=== PATIENT | female | born 2000 | race Caucasian/White ===

== ENCOUNTER 2023-04-02 22:23 | Emergency (ER) | payer OTHER, SELFPAY ==
[2023-04-02 22:44] VITALS: BP 119/77; PULSE 80; RESP 16; TEMP 36.8; O2SAT 97; BMI 25.8
--- NOTE | 2023-04-02 23:07 | ED_ITS ---
HPI - General Adult General Chief complaint: Skin/Abscess/Foreign Body Stated complaint: RASH Time Seen by Provider: 04/02/23 22:52 Source: patient Mode of arrival: walk-in Limitations: no limitations History of Present Illness HPI narrative: rash between both thighs started over a month ago. She saw an ED physician at [place] [facility] and was prescribed topical steroid cream - but only told to apply it once daily and no follow up instructions were given. 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 The rash is raised and red but not painful. She said it is itchy. No systemic symptoms. Related Data Home Medications Medication Instructions Recorded Confirmed norgestimate 0.25 mg-ethinyl tab 04/02/23 estradiol 35 mcg tablet Previous Rx's Medication Instructions Recorded triamcinolone acetonide 0.1 % 1 applic topical TID #30 grams 04/02/23 topical ointment Allergies Allergy/AdvReac Type Severity Reaction Status Date / Time ondansetron [From Zofran] Allergy Mild Verified 04/02/23 22:50 Exam Narrative Exam Narrative: Nurses notes and vital signs reviewed and patient is not hypoxic. afebrile General: Well-appearing and in no apparent distress. Skin: Warm, dry, no pallor noted. erythematous rash to the medial thighs bilaterally. No vesicles or open wounds. No other skin rash/ lesions Head: Normocephalic, atraumatic. Eye: Pupils are equal, round and EOMI. No scleral icterus. Ears, Nose, Mouth, and Throat: Oral mucosa is moist Cardiovascular: Evette peripheral perfusion. Respiratory: No accessory muscle use or respiratory distress. Lungs are clear to auscultation, no wheezing, rales or rhonchi Musculoskeletal: normal ROM Neurological: A&O x4. No cranial nerve dysfunction observed. No truncal ataxia. Moves all extremities. Sensation intact. Psychiatric: Cooperative and interactive. Normal mood and affect. Constitutional Vital Signs - 24 hr 04/02/23 22:44 Temperature 98.2 F Pulse Rate [Monitor] 80 Respiratory Rate 16 Blood Pressure [Left Arm] 119/77 Pulse Oximetry 97 Oxygen Delivery Method Room Air Course Vital Signs Vital signs: Vital Signs Temperature 98.2 F 04/02/23 22:44 Pulse Rate 80 06/24/23 22:44 Respiratory Rate 16 04/02/23 22:44 Blood Pressure 119/77 04/02/23 22:44 Pulse Oximetry 97 04/02/23 22:44 Oxygen Delivery Method Room Air 04/02/23 22:44 Temperature 98.2 F 04/02/23 22:44 Pulse Rate 80 04/02/23 22:44 Respiratory Rate 16 04/02/23 22:44 Blood Pressure 119/77 04/02/23 22:44 Pulse Oximetry 97 04/02/23 22:44 Oxygen Delivery Method Room Air 04/02/23 22:44 Medical Decision Making MDM Narrative Medical decision making narrative: patient and I discussed propr frequency of dosing for the topical steroid. She was given referral information for [facility] dermatology Discharge Plan Discharge Chief Complaint: Skin/Abscess/Foreign Body Clinical Impression: Contact dermatitis Patient Disposition: Home, Self-Care Time of Disposition Decision: 23:11 Prescriptions / Home Meds: New triamcinolone acetonide 0.1 % ointment 1 applic topical TID Qty: 30 0RF No Action norgestimate-ethinyl estradiol 0.25-35 mg-mcg tablet Instructions: Contact Dermatitis (ED) Additional Instructions: refer to [facility] dermatology for follow up Stand Alone Forms: Portal Instructions Referrals: Physician,Non-Staff, [Primary Care Provider] - 1 week ALEXUS ISSA [Physician] - 1 week
--- NOTE | 2023-04-02 23:17 | PC.NURSE ---
Raised hive appearing rash inner bilateral thighs.
[2023-04-02 23:18] VITALS: RESP 16
== END 2023-04-02 23:43 | disposition home or self-care (01) ==
PROVIDERS: Emergency Provider Emergency Medicine
DX: L25.9 Unspecified contact dermatitis, unspecified cause (principal)
CPT/HCPCS: 99282

== ENCOUNTER 2023-11-21 09:55 | Outpatient (OUT) | payer OTHER, SELFPAY ==
[2023-11-21 10:44] LABS: HCG Quantitative <1 mIU/mL
== END 2023-11-21 09:56 | disposition home or self-care (01) ==
LOC: LAB 09:55
PROVIDERS: Visit Provider Obstetrics & Gynecology
DX: N92.6 Irregular menstruation, unspecified (principal)
CPT/HCPCS: 36415; 84702

== ENCOUNTER 2024-01-20 10:16 | Outpatient (OUT) | payer OTHER, SELFPAY ==
[2024-01-20 13:42] LABS: HCG Quantitative 46 mIU/mL
== END 2024-01-20 10:17 | disposition home or self-care (01) ==
LOC: LAB 01-24 10:16
PROVIDERS: Visit Provider Obstetrics & Gynecology
DX: Z32.01 Encounter for pregnancy test, result positive (principal)
CPT/HCPCS: 36415; 84702

== ENCOUNTER 2024-01-23 09:35 | Outpatient (OUT) | payer OTHER, SELFPAY ==
--- OUTSIDE RECORDS SUMMARY | 2024-01-23 10:01 | XMS_ITS | CCD ---
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 contraceptive management Class 2 obesity due to excess calories without serious comorbidity with body mass index (BMI) of 37.0 to 37.9 in adult documented in this encounter [facility] Instructions Note Date & Type Note Facility Instructions Not on filedocumented in this en counter [facility] Reason for referral (narrative) Consultation (Routine) - Pending Review Note Date & Type Note Facility Reason for referral (narrati ve) Specialty Diagnoses / Procedures Referred By Vinny t Referred To Contact Diagnoses PTSD (post-traumatic stress disorder) Summer Davalos APRN-FNP [address] [place] [address] Referral ID Status Reason Start Date Expiration Date Visits Requested Visits Authorized [id number] Pending Review Patient Preference 12/20/2023 12/19/2024 1 1 [facility] Summary Purpose Family History No Family History Records FoundNo Family History Records FoundNo Family History Records Found Advance Directives No Advanced Directives Records FoundNo Advanced Directives Records FoundNo Advanced Directives Records Found Additional Source Comments INFORMATION SOURCE (unrecogn ized section and content) DATE CREATED AUTHOR 01/27/2023 [facility] DATE CREATED AUTHOR AUTHOR'S ORGANIZ ATION 12/22/2023 [facility] DATE CREATED AUTHOR AUTHOR'S ORGANIZ ATION 01/20/2024 [facility] (unrecognized sec tion and content) Outsole Beveler Relationship Specialty Start Date End Date Reid Jasmine MD PCP - General Family Medicine 08/01/23 Outsole Beveler Relationship Specialty Start Date End Date Summer Davalos, GALO-MALTER OPERATOR [address] [place] [address] PCP - General Internal Medicine 09/14/23 Reason for Visit (unrecogniz ed section and content) Reason Comments Annual Exam FOR RECORDS PERTAINING TO PATIENTS WHO ARE OR HAVE BEEN ENROLLED IN A CHEMICAL DEPENDENCY/SUBSTANCEABUSE PROGRAM, SOME INFORMATION MAY BE OMITTED. This clinical summary was aggregated from multiple sources. Caution should be exercised in using it in the provision of clinical care. This summary normalizes information from multiple sources, and as a consequence, information in this document may materially change the coding, format and clinical context of patient data. In addition, data may be omitted in some cases. CLINICAL DECISIONS SHOULD BE BASED ON THE PRIMARY CLINICAL RECORDS. [employer] provides no warranty or guarantee of the accuracy or completeness of information in this document.
[2024-01-23 10:44] LABS: HCG Quantitative 128 mIU/mL
== END 2024-01-23 09:36 | disposition home or self-care (01) ==
PROVIDERS: Visit Provider Obstetrics & Gynecology
DX: Z32.01 Encounter for pregnancy test, result positive (principal)
CPT/HCPCS: 36415; 84702

== ENCOUNTER 2024-02-07 10:34 | Outpatient (OUT) | payer OTHER, SELFPAY ==
[2024-02-07 11:17] LABS: Hemoglobin 12.5 g/dL (12.0-16.0); Mean Corpuscular HGB Conc 32.9 g/dL (29.9-35.2); Mean Corpuscular Hemoglobin 27.9 pg (26.7-34.0); Mean Corpuscular Volume 84.8 fL (81.0-99.0); Mean Platelet Volume 10.1 fL (9.5-13.5); Platelet Count 226 10^3/uL (150-450); Red Blood Count 4.48 10^6/uL (4.20-5.40); Red Cell Distribution Width 12.4 % (11.0-15.0); White Blood Count 5.8 10^3/uL (4.0-11.0)
[2024-02-07 11:23] LABS: Estimated Average Glucose 97 mg/dL
[2024-02-07 11:32] LABS: Free T4 1.03 ng/dL (0.76-1.46)
[2024-02-07 11:35] LABS: Alanine Aminotransferase 102 U/L (14-59); Albumin Globulin Ratio 0.9; Albumin Level 3.8 g/dL (3.4-5.0); Alkaline Phosphatase 68 U/L (46-116); Anion Gap 13.5; Aspartate Amino Transferase 59 U/L (15-37); BUN Creatinine Ratio 10.3; Bilirubin Total 0.5 mg/dL (0.2-1.0); Calcium 9.3 mg/dL (8.5-10.1); Carbon Dioxide 24.4 mmol/L (21.0-32.0); Chloride 105 mmol/L (98-107); Estimated GFR (African America >60 (>=60); Estimated GFR (Non-African Ame >60 (>=60); Glucose 83 mg/dL (74-106); Potassium 3.9 mmol/L (3.5-5.1); Sodium 139 mmol/L (136-145); Total Protein 7.8 g/dL (6.4-8.2)
[2024-02-07 14:29] LABS: Eosinophils Absolute Manual 0.17 10^3/uL (0.00-0.70); Lymphocytes Absolute Manual 1.68 10^3/uL (1.20-3.80); Monocytes Absolute Manual 0.52 10^3/uL (0.30-0.80); Segmented Neut Absolute Manual 3.42 10^3/uL (1.4-6.5)
== END 2024-02-07 10:35 | disposition home or self-care (01) ==
LOC: LAB 10:35
PROVIDERS: PCP Nurse Practitioner Family; Visit Provider Obstetrics & Gynecology
DX: R63.1 Polydipsia (principal); R68.2 Dry mouth, unspecified; R20.9 Unspecified disturbances of skin sensation
CPT/HCPCS: 36415; 80053; 83036; 84439; 84443; 85007; 85027

== ENCOUNTER 2024-02-12 10:00 | Emergency (ER) | payer OTHER, SELFPAY ==
[2024-02-12 10:04] VITALS: BP 131/83; PULSE 78; TEMP 36.5; O2SAT 97; BMI 38.7
--- OUTSIDE RECORDS SUMMARY | 2024-02-12 10:08 | XMS_ITS | CCD ---
Author Organization [facility] Care Team Providers Care Studio Assistant Name Role Phone NAMITA, DR BEAN Primary Care Unavailable KARASIK ., DR COTA Admitting Unavailabl e KARASIK ., DR COTA Attending Unavailabl e KARASIK ., DR COTA Consulting Unavailabl e SHARP, MICHAEL Consulting Unavailable LATIA AMADO Consulting Unavailable KARASIK ., DR COTA Admitting Unavailabl e REQUEST, DR HOWARD LISTED Primary Care Unavaila ble KARASIK ., DR COTA Attending Unavailabl e KARASIK ., DR COTA Consulting Unavailabl e PAY ., DR TARANGO Attending Unavailable PAY ., DR TARANGO Consulting Unavailable REQUEST, DR HOWARD LISTED Primary Care Unavaila ble PAY ., DR TARANGO Admitting Unavailable Reid Jasmine MD Primary Care Provider Anoop COMMERCIAL LOAN PROCESSOR-GLASSWARE FINISHER, Summer Machado Primary Care Provider SUMMER DAVALOS Attending Unavailable SUMMER DAVALOS Referring Unavailable SUMMER DAVALOS Primary Care Unavailable SUMMER DAVALOS Primary Care Unavailable MARQUES BUTLER Attending Unavailable MADELEINE PRETTY Attending Unavailable Allergies Allergy Classification Reported Allergen(s) Allergy Type Date of Onset Reaction(s) Facility (1 source) Ondansetron Drug Allergy [facility] Repository (1 source) Ondansetron Drug Allergy 08-01-2023 [facility] Work Phone: (3 sources) Ondansetron; Translations: [ONDANSETRON HCL] Drug Allergy 12-11-[address] [facility] Medications Current Medications Medication Drug Class(es) [...] ( test) Ql (U) Negative Normal NEG [facility] Comment on above: Performed By: #### 2 106-3 #### [facility] ([id number]) [address] [place] [address], [place] [address] MILTON Golver 2023 BILIRUBIN SUDHIR Negative Normal NEG [facility] Comment on above: Performed By: #### N UM #### [facility] ([id number]) [address] [place] [address] [place] [address] BLOOD/HGB SUDHIR Trace Abnormal NEG [facility] Comment on above: Performed By: #### N UM #### [facility] ([id number]) [address] [place] [address], [place] [address] GLUCOSE SUDHIR Negative Normal NEG [facility] Comment on above: Performed By: #### N UM #### [facility] ([id number]) [address] [place] [address], [place] [address] KETONES SUDHIR Negative Normal NEG [facility] Comment on above: Performed By: #### N UM #### [facility] ([id number]) [address] [place] [address] [place] [address] LEUKOCYTE ESTERASE SUDHIR Negative Normal NEG [facility] Comment on above: Performed By: #### N UM #### [facility] ([id number]) [address] [place] [address] [place] [address] NITRITE SUDHIR Negative Normal NEG [facility] Comment on above: Performed By: #### N UM #### [facility] ([id number]) [address] [place] [address] [place] [address] PH SDUHIR 6.0 Normal 5.0-8.5 [facility] Comment on above: Performed By: #### N UM #### [facility] ([id number]) [address] [place] [address] [place] [address] PROTEIN SUDHIR Negative Normal NEG [facility] Comment on above: Performed By: #### N UM #### [facility] ([id number]) [address] [place] [address], [place] [address] SPECIFIC GRAVITY SUDHIR >=1.030 Normal 1.003-1.035 [facility] Comment on above: Performed By: #### N UM #### [facility] ([id number]) [address] [place] [address] UROBILINOGEN SUDHIR 0.2 eu/dL Normal <1.[address] [facility] Comment on above: Performed By: #### N UM #### [facility] ([id number]) [address] [place] [address] [facility] PREG QUANT HCGon 024 HCG QUANTITATIVE <1 mIU/mL [facility] Comment on above: 5-50 0.2-1 WEEK 50-500 1-2 WEEKS 100-5,000 2-3 WEEKS 500-10,000 3-4 WEEKS 1,000-50,000 4-5 WEEKS 10,000-100,000 5-6 WEEKS 15,000-200,000 6-8 WEEKS 10,000-100,000 2-3 MONTHS [facility] CBC AUTO DIFFon 01-19-2023 BASO # 0.1 103/ul Normal 0.0-0.1 [facility] Comment on above: Performed By: #### C BC #### [facility] [address] [place] [address] Dr. Kristie Marrero Basophils/100 WBC (Bld) 0.5 % Normal 0.2-2.0 [facility] Comment on above: Performed By: #### C BC #### [facility] [address] [place] [address] Dr. Kristie Marrero EO # 0.2 103/ul Normal 0.0-0.7 [facility] Comment on above: Performed By: #### C BC #### [facility] [address] [place] [address] Dr. Kristie Marrero Eosinophils/100 WBC (Bld) 2.0 % Normal 0.9-7.0 [facility] Comment on above: Performed By: #### C BC #### [facility] [address] [place] [address] Dr. Kristie Marrero Erythrocyte distribution width (RBC) [Ratio] 12.0 % Normal 11.0-15.0 [facility] Comment on above: Performed By: #### C BC #### [facility] [address] [place] [address] Dr. Kristie Marrero Hematocrit (Bld) [Volume fraction] 38.0 % Normal 36.0-48.0 [facility] Comment on above: Performed By: #### C BC #### [facility] [address] [place] [address] Dr. Kristie Marrero Hemoglobin (Bld) [Mass/Vol] 13.3 g/dL Normal 12.0-16.0 [facility] Comment on above: Performed By: #### C BC #### [facility] [address] [place] [address] Dr. Kristie Marrero IG # 0.04 10e3/ul Critically high 0.00-0.03 [facility] Comment on above: Performed By: #### C BC #### [facility] [address] [place] [address] Dr. Kristie Marrero IG % 0.4 % Normal 0.0-0.5 [facility] Comment on above: Performed By: #### C BC #### [facility] [address] [place] [address] Dr. Kristie Marrero LYMPH # 1.3 103/ul Normal 1.2-3.8 [facility] Comment on above: Performed By: #### C BC #### [facility] [address] [place] [address] Dr. Kristie Marrero Lymphocytes/100 WBC (Bld) 12.3 % Critically low 20.5-60.0 [facility] Comment on above: Performed By: #### C BC #### [facility] [address] [place] [address] Dr. Krisite Marrero MANUAL DIFF REQ NO Normal [facility] Comment on above: Performed By: #### C BC #### [facility] [address] [place] [address] Dr. Kristie Marrero MCH (RBC) [Entitic mass] 29.2 pg Normal 26.7-34.0 [facility] Comment on above: Performed By: #### C BC #### [facility] [address] [address] [address] Kristie Marrero MCHC (RBC) [Mass/Vol] 35.0 g/dL Normal 29.9-35.2 [facility] Comment on above: Performed By: #### C BC #### [facility] [address] [address] [address] Kristie Marrero MCV (RBC) [Entitic vol] 83.3 fL Normal 81.0-99.0 [facility] Comment on above: Performed By: #### C BC #### [facility] [address] [address] [address] Kristie Marrero MONO # 0.7 103/ul Normal 0.3-0.8 [facility] Comment on above: Performed By: #### C BC #### [facility] [address] [address] [address] Kristie Marrero Monocytes/100 WBC (Bld) 7.0 % Normal 1.7-12.0 [facility] Comment on above: Performed By: #### C BC #### [facility] [address] [address] [address] Kristie Marrero NEUT # 8.2 103/ul Critically high 1.4-6.5 [facility] Comment on above: Performed By: #### C BC #### [facility] [address] [address] [address] Kristie Marrero Neutrophils/100 WBC (Bld) 77.8 % Critically high 43.0-75.0 [facility] Comment on above: Performed By: #### C BC #### [facility] [address] [address] [address] Kristie Marrero Platelet mean volume (Bld) [Entitic vol] 9.5 fL Normal 9.5-13.5 [facility] Comment on above: Performed By: #### C BC #### [facility] [address] [address] [address] Kristie Marrero PLT 265 103/ul Normal 150-[address] [facility] Comment on above: Performed By: #### C BC #### [facility] [address] [place] [address] Dr. Kristie Marrero RBC 4.56 106/ul Normal 4.20-5.40 [facility] Comment on above: Performed By: #### C BC #### [facility] [address] [place] [address] Dr. Kristie Marrero WBC 10.5 103/ul Normal 4.0-11.0 [facility] Comment on above: Performed By: #### C BC #### [facility] [address] [place] [address] Dr. Kristie Marrero PREG HCG QUALon 01-19-2023 , QUAL Negative Normal NEGATIVE [facility] Comment on above: Performed By: #### P REG #### [facility] [address] [place] [address] Dr. Kristie Marrero CHLAMYDIA/GONOCOCCUS RADHA ( AB/URINE/PAPon 11-19-2022 Chlamydia trachomatis, RADHA Negative Normal Negative [facility] Comment on above: Performed By: #### C T/NGNA #### [facility] [address] [place] [address] Dr. Krisite Marrero Neisseria gonorrhoeae, RADHA Negative Normal Negative [facility] Comment on above: Performed By: #### C T/NGNA #### [facility] [address] [place] [address] Dr. Kristie Marrero VAGINITIS/VAGINOSIS DNA PROB Syed 11-18-2022 Jenny species Negative Normal Negative [facility] Comment on above: Performed By: #### V AGINT #### [facility] [address] [place] [address] Dr. Kristie Marrero Gardnerella vaginalis Positive Abnormal Negative [facility] Comment on above: Performed By: #### V AGINT #### [facility] [address] [place] [address] Dr. Kristie Marrero Trichomonas vaginalis Negative Normal Negative [facility] Comment on above: Performed By: #### V AGINT #### [facility] [id number] Kristie Marrero [facility]10 SARS-CoV-2 (COVID-19) RNA RADHA+probe Ql (Unsp spec) Detected Critically abnormal NOT DETECTED [facility] Comment on above: Result Comment: This test is not yet approved or cleared by the [place] FDA. When there are no FDA-approved or cleared tests available, and other criteria are met, FDA can make tests available under an emergency access mechanism called an Emergency Use Authorization (EUA). The EUA for this test is supported by the Windows Infrastructure Engineer of Health and Human Service's (HHS's) declaration [...] longer be used). Performed By: #### [facility] #### [facility] [address] [place], [place] [id number] Dr. Kristie Marrero Vital Signs Date Time Vital Sign Value Performing Clinician Facility 12-20-2023 15:22-0400 Body height 170.2 cm Summre LOPEZ Work Phone: [facility] 12-20-2023 15:22-0400 Body mass index (BMI) [Ratio] 38.28 kg/m2 Summer LOPEZ Work Phone: [facility] 12-20-2023 15:22-0400 Body temperature 98.29 [degF] Summer LOPEZ Work Phone: [facility] 12-20-2023 15:22-0400 Body weight 110.86 kg Summer LOPEZ Work Phone: [facility] 12-20-2023 15:22-0400 Diastolic blood pressure 80 mm[Hg] Summer LOPEZ Work Phone: [facility] 12-20-2023 15:22-0400 Heart rate 82 /min Summer Davalos COMMERCIAL LOAN PROCESSOR-GLASSWARE FINISHER [facility] 12-20-2023 15:22-0400 Respiratory rate 18 /min Summer Davalos COMMERCIAL LOAN PROCESSOR-GLASSWARE FINISHER Work Phone: [facility] 12-20-2023 15:22-0400 SaO2% (BldA) [Mass fraction] 97 % Summer Davalos COMMERCIAL LOAN PROCESSOR-GLASSWARE FINISHER Work Phone: [facility] 12-20-2023 15:22-0400 Systolic blood pressure 100 mm[Hg] Summer Davalos APRN-GLASSWARE FINISHER Work Phone: [facility] Encounters Encounter Date Encounter Type Care Provider Facility Start: 02-07-2024 End: 02-07-2024 ambulatory MADELEINE MARIA DE JESUS Not Available Start: 01-19-2024 End: 01-19-2024 Emergency department patient visit [facility] Start: 12-20-2023 End: 12-20-2023 ambulatory [facility] Start: 12-20-2023 End: 12-20-2023 Office outpatient visit 15 minutes Summer Davalos APRN-GLASSWARE FINISHER Work Phone: [facility] Internal Medicine - Family Medicine Comment [...] Work Phone: [facility] Unsolicited Start: 01-19-2023 End: 01-19-[address] DOCTOR BREAUX Facility:[facility] Start: 11-16-2022 End: 11-16-[address] BEATA THOMSON . Facility:[facility] Start: 05-07-2022 End: 05-07-[address] SUKHDEEP HERNÁNDEZ . Facility: Procedures Date Procedure Procedure Detail Performing Clinician Start: 12-20-2023 Adult depression scr eening assessment Summer Davalos COMMERCIAL LOAN PROCESSOR-GLASSWARE FINISHER Work Phone: Start: 11-21-2023 [facility] PREG QUANT HCG Core y Ayleen DO Work Phone: Start: 11-16-2022 Microscopic observat ion [Identifier] in Cervix by Cyto stain Summer Davalos COMMERCIAL LOAN PROCESSOR-[facility] Work Phone: Plan of Treatment Date Care Activity Detail Author Start: 11-13-2029 DTaP,Tdap and Td Vaccines (7 - Td or Tdap) DTaP,Tdap and Td Vaccines (7 - Td or Tdap) [facility] Start: 11-16-2025 Screening for malign ant neoplasm of cervix Pap Smear [facility] Start: 12-19-2024 Adult BMI Screening Adult BMI Screen ing [facility] Start: 12-19-2024 Depression Screening Depression Scre ening [facility] Start: 12-19-2024 Tobacco Screening Tobacco Screening [facility] Start: 09-14-2024 Adult BMI Follow Up Plan Adult BMI Follow Up Plan [facility] Start: 06-10-2023 Influenza vaccination Influenza Vacc ine (#1) [facility] Immunizations Immunization Date Immunization Notes Care Provider Fa cility 11-13-2019 tetanus toxoid, redu clifford diphtheria toxoid, and acellular pertussis vaccine, adsorbed Summer Davalos COMMERCIAL LOAN PROCESSOR-[facility] Work Phone: [facility] 01-22-2014 diphtheria, tetanus toxoids and acellular pertussis vaccine, unspecified formulation Summer Davalos COMMERCIAL LOAN PROCESSOR-GLASSWARE FINISHER Work Phone: [facility] 06-22-2004 diphtheria, tetanus toxoids and acellular pertussis vaccine Summer Davalos COMMERCIAL LOAN PROCESSOR-GLASSWARE FINISHER Work Phone: [facility] 06-22-2004 haemophilus influenz ae type b vaccine, PRP-T conjugate Summer Davalos COMMERCIAL LOAN PROCESSOR-[facility] Work Phone: [facility] 06-22-2004 pneumococcal conjuga te vaccine, 7 valent Summer Davalos COMMERCIAL LOAN PROCESSOR-GLASSWARE FINISHER Work Phone: [facility] 12-20-2003 DTaP-hepatitis B and poliovirus vaccine Summer Davalos COMMERCIAL LOAN PROCESSOR-GLASSWARE FINISHER Work Phone: [facility] 12-20-2003 haemophilus influenz ae type b vaccine, PRP-T conjugate Summer Davalos COMMERCIAL LOAN PROCESSOR-GLASSWARE FINISHER Work Phone: [facility] 12-20-2003 measles, mumps and rubella virus vaccine Summer Davalos COMMERCIAL LOAN PROCESSOR-GLASSWARE FINISHER Work Phone: [facility] 12-20-2003 varicella virus vaccine Summer Davalos COMMERCIAL LOAN PROCESSOR-GLASSWARE FINISHER Work Phone: [facility] 11-11-2003 DTaP-hepatitis B and poliovirus vaccine Summer Davalos COMMERCIAL LOAN PROCESSOR-GLASSWARE FINISHER Work Phone: [facility] 11-11-2003 haemophilus influenz ae type b vaccine, PRP-T conjugate Summer Davalos COMMERCIAL LOAN PROCESSOR-GLASSWARE FINISHER Work Phone: [facility] 11-11-2003 pneumococcal conjuga te vaccine, 7 valent Summer Davalos COMMERCIAL LOAN PROCESSOR-GLASSWARE FINISHER Work Phone: [facility] 05-31-2003 DTaP-hepatitis B and poliovirus vaccine Summer Davalos COMMERCIAL LOAN PROCESSOR-GLASSWARE FINISHER Work Phone: [facility] 05-31-2003 haemophilus influenz ae type b vaccine, PRP-T conjugate Summer Davalos COMMERCIAL LOAN PROCESSOR-GLASSWARE FINISHER Work Phone: [facility] 05-31-2003 pneumococcal conjuga te vaccine, 7 valent Summer Davalos COMMERCIAL LOAN PROCESSOR-GLASSWARE FINISHER Work Phone: [facility] 2002 hepatitis B vaccine, pediatric or pediatric/adolescent dosage Summer Davalos COMMERCIAL LOAN PROCESSOR-GLASSWARE FINISHER Work Phone: [facility] Payers Date Payer Category Payer Medicaid [id number] 2002 Unknown [id number] [id number] 2002 Unknown [id number] [id number] 2002 Unknown [id number] 2.16.84 [id number] 1982 Unknown [id number] 2.16.84 [id number] 1982 Unknown [id number] 2.16.84 [id number] 1982 Unknown [id number] [id number] [id number] 1959 Unknown [id number] 1959 Unknown [id number] Social History Date Type Detail Facility Start: 05-19-[address] [facility] Tobacco smoking consumption unknown [facility] Start: 05-19-2023 Tobacco use and exposure User of smokeless tobacco [facility] Start: 11-18-2023 End: 12-20-2023 Alcohol intake Lifetime non-drinker (finding) [facility] Start: 11-11-2020 End: 05-19-2023 History of Social function [facility] Start: 11-11-2020 End: 05-19-[address] [facility] Start: 2000 Sex Assigned At Not on file [facility] Start: 01-15-[address] [facility] Never smoked tobacco [facility] Start: 01-15-2023 Tobacco use and exposure Smokeless tobacco non-user [facility] Frequency of Alcohol Consumption Never [facility] History of Present illness Narrative 12-20-2023 Summer Davalos APRN-HARPER - 12/20/2023 3:20 PM EDT Note Date [...] in adult She has her contraception and rag production worker care thru Dr Abbasi, she should continue [...] Thrasher 12/20/23 1629 documented in this encounter [facility] Evaluation note Note Date & Type Note Facility Evaluation note Diagnosis PTSD (post-traumatic stress disorder)- Primary Posttraumatic stress disorder General counseling and advice for contraceptive management Class 2 obesity due to excess calories without serious comorbidity with body mass index (BMI) of 37.0 to 37.9 in adult [facility] Instructions Note Date & Type Note Facility Instructions Not on filedocumented in this en counter [facility] Reason for referral (narrative) Consultation (Routine) - Pending Review Note Date & Type Note Facility Reason for referral (narrati ve) Specialty Diagnoses / Procedures Referred By Vinny t Referred To Contact Diagnoses PTSD (post-traumatic stress disorder) Summer Davalos APRN-FNP [address] [place] [address] Referral ID Status Reason Start Date Expiration Date Visits Requested Visits Authorized [id number] Pending Review Patient Preference 12/20/2023 12/19/2024 1 1 [facility] Summary Purpose Family History No Family History Records FoundNo Family History Records FoundNo Family History Records FoundNo Family History Records Found Advance Directives No Advanced Directives Records FoundNo Advanced Directives Records FoundNo Advanced Directives Records FoundNo Advanced Directives Records Found Additional Source Comments INFORMATION SOURCE (unrecogn ized section and content) DATE CREATED AUTHOR 01/27/2023 [facility] DATE CREATED AUTHOR AUTHOR'S ORGANIZ ATION [facility] DATE CREATED AUTHOR AUTHOR'S ORGANIZ ATION 01/20/2024 [facility] DATE CREATED AUTHOR AUTHOR'S ORGANIZ ATION 02/08/2024 [facility] Care Teams (unrecognized sec tion and content) Studio Assistant Relationship Specialty Start Date End Date Reid Jasmine MD PCP - General Family Medicine 08/01/23 Studio Assistant Relationship Specialty Start Date End Date Summer Davalos APRN-FNP [address] [place] [address] PCP - General Internal Medicine 09/14/23 Reason [...] BE BASED ON THE PRIMARY CLINICAL RECORDS. [employer] provides no warranty or guarantee of the accuracy or completeness of information in this document.
--- NOTE | 2024-02-12 10:17 | ED.PREGNANC1 ---
HPI - General Chief complaint: Urogenital-Female Stated complaint: VAGINAL BLEEDING Time Seen by Provider: 02/12/24 10:03 Source: patient Mode of arrival: walk-in History of Present Illness HPI Narrative: 23-year-old female presents to the emergency department for vaginal bleeding. She is known to be but is not far enough along to have seen her OB yet. She started to have some light bleeding yesterday at 11 AM and it got heavier today, heavier than a regular period. No fever or injury. She has minimal lower abdominal cramping. Related Data Home Medications ?Medication ?Instructions ?Recorded ?Confirmed No Known Home Medications 02/12/24 02/12/24 Allergies Allergy/AdvReac Type Severity Reaction Status Date / Time ondansetron [From Zofran] Allergy Mild Verified 04/02/23 22:50 Review of Systems ROS Narrative A ten point review of systems is negative except as noted above. Exam Narrative Exam Narrative: Nurses note and vital signs reviewed and patient is not hypoxic. General: The patient appears well and in no apparent distress. Patient is resting comfortably on cart. Skin: Warm, dry, no pallor noted. There is no rash noted. Head: Normocephalic, atraumatic Eye: Normal conjunctiva, no drainage Ears, Nose, Mouth, and Throat: oral mucosa is moist. Nares patent. Cardiovascular: Regular Rate and Rhythm Respiratory: Patient is in no distress, no accessory muscle use, lungs are clear to auscultation, no wheezing, rales or rhonchi Back: non-tender, no CVA tenderness bilaterally to percussion. GI: Soft and nontender Musculoskeletal: No joint swelling Neurological: A&O, normal speech Psychiatric: Cooperative, tearful Constitutional Vital Signs, click to edit/add: Last Vital Signs Temp 97.7 F 02/12/24 10:04 Pulse 78 02/12/24 10:04 Resp 16 02/12/24 10:04 BP 131/83 02/12/24 10:04 Pulse Ox 97 02/12/24 10:04 Course Vital Signs Vital signs: Vital Signs Temperature 97.7 F 02/12/24 10:04 Pulse Rate 78 02/12/24 10:04 Respiratory Rate 16 02/12/24 10:04 Blood Pressure 131/83 02/12/24 10:04 Pulse Oximetry 97 02/12/24 10:04 Temperature 97.7 F 02/12/24 10:04 Pulse Rate 78 02/12/24 10:04 Respiratory Rate 16 02/12/24 10:04 Blood Pressure 131/83 02/12/24 10:04 Pulse Oximetry 97 02/12/24 10:04 MDM - OB/Uterine Contractions MDM Narrative Medical decision making narrative: hCG titer is 960. Ultrasound shows gestational sac and yolk sac. Findings are discussed with Dr. Brandon and the patient will be discharged home, follow-up with Dr. Abbasi, she will call the office tomorrow. She was instructed to have no sex and to return if bleeding became worse. Treatment diagnosis and follow-up were discussed with the patient. There is no evidence of an ectopic . Differential Diagnosis Differential diagnosis: Likely other (Miscarriage, threatened miscarriage, ectopic) Lab Data Attestation: I reviewed the patient's lab results. Labs: Lab Results 02/12/24 Range/Units 10:31 WBC 6.7 (4.0-11.0) 10^3/uL RBC 4.51 (4.20-5.40) 10^6/uL Hgb 12.8 (12.0-16.0) g/dL Hct 38.7 (36.0-48.0) % MCV 85.8 (81.0-99.0) fL MCH 28.4 (26.7-34.0) pg MCHC 33.1 (29.9-35.2) g/dL RDW 12.5 (11.0-15.0) % Plt Count 246 (150-450) 10^3/uL MPV 9.7 (9.5-13.5) fL Neut % (Auto) 57.7 (43.0-75.0) % Lymph % (Auto) 28.3 (20.5-60.0) % [place] % (Auto) 9.2 (1.7-12.0) % Eos % (Auto) 2.1 (0.9-7.0) % Baso % (Auto) 2.4 H (0.2-2.0) % Neut # (Auto) 3.9 (1.4-6.5) 10^3/uL Lymph # (Auto) 1.9 (1.2-3.8) 10^3/uL [place] # (Auto) 0.6 (0.3-0.8) 10^3/uL Eos # (Auto) 0.1 (0.0-0.7) 10^3/uL Baso # (Auto) 0.2 H (0.0-0.1) 10^3/uL Abs Immat Gran (auto) 0.02 (0.00-0.03) 10^3/uL Imm/Tot Granulo (auto) 0.3 (0.0-0.5) % Sodium 140 (136-145) mmol/L Potassium 4.0 (3.5-5.1) mmol/L Chloride 106 (98-107) mmol/L Carbon Dioxide 23.7 (21.0-32.0) mmol/L Anion Gap 14.3 BUN 11.0 (7.0-18.0) mg/dL Creatinine 0.73 (0.55-1.02) mg/dL Est GFR ( Amer) >60 (>=60) Est GFR (Non-Af Amer) >60 (>=60) BUN/Creatinine Ratio 15.1 Glucose 104 (74-106) mg/dL Calcium 9.4 (8.5-10.1) mg/dL HCG, Quant 960 mIU/mL Blood Type B Positive Imaging Data Pelvic ultrasound: Radiologist's impression: ITS Impressions Transvaginal US 02/12/24 11:07 IMPRESSION: 1. Single intrauterine , uncertain viability. Intrauterine gestational saclike structure with probable normal yolk sac is evident. Embryonic pole or cardiac activity could not be documented. Gestational sac size is below the available reference data for gestational age calculation. 14 day follow-up sonography recommended. 2. No significant perigestational hemorrhage 3. Normal maternal right ovarian sonographic morphology 4. Nonvisualization maternal left ovary 5. No maternal pelvic free fluid Electronically authenticated by: ERNESTO CASE Date: 02/12/2024 12:50 Discharge Plan Discharge Stand Alone Forms: Portal Instructions Chief Complaint: Urogenital-Female Clinical Impression: Threatened miscarriage Patient Disposition: Home, Self-Care Time of Disposition Decision: 12:56 Condition: Good Mode of Transportation: Private Vehicle Prescriptions / Home Meds: No Action No Known Home Medications Print Language: [place]i Instructions: Threatened Miscarriage (ED) Additional Instructions: Call Dr. Abbasi's office tomorrow Referrals: ELISA MARES [Primary Care Provider] - 1 week
[2024-02-12 10:39] LABS: Basophils Absolute Auto 0.2 10^3/uL (0.0-0.1); Basophils Percent Auto 2.4 % (0.2-2.0); Eosinophils Absolute Auto 0.1 10^3/uL (0.0-0.7); Eosinophils Percent Auto 2.1 % (0.9-7.0); Hematocrit 38.7 % (36.0-48.0); Hemoglobin 12.8 g/dL (12.0-16.0); Immature Granulocytes Abs Auto 0.02 10^3/uL (0.00-0.03); Immature Granulocytes Pct Auto 0.3 % (0.0-0.5); Lymphocytes Absolute Auto 1.9 10^3/uL (1.2-3.8); Lymphocytes Percent Auto 28.3 % (20.5-60.0); Mean Corpuscular HGB Conc 33.1 g/dL (29.9-35.2); Mean Corpuscular Hemoglobin 28.4 pg (26.7-34.0); Mean Corpuscular Volume 85.8 fL (81.0-99.0); Mean Platelet Volume 9.7 fL (9.5-13.5); Monocytes Absolute Auto 0.6 10^3/uL (0.3-0.8); Monocytes Percent Auto 9.2 % (1.7-12.0); Neutrophils Absolute Auto 3.9 10^3/uL (1.4-6.5); Neutrophils Percent Auto 57.7 % (43.0-75.0); Platelet Count 246 10^3/uL (150-450); Red Blood Count 4.51 10^6/uL (4.20-5.40); Red Cell Distribution Width 12.5 % (11.0-15.0); White Blood Count 6.7 10^3/uL (4.0-11.0)
[2024-02-12 10:58] LABS: Anion Gap 14.3; BUN Creatinine Ratio 15.1; Calcium 9.4 mg/dL (8.5-10.1); Carbon Dioxide 23.7 mmol/L (21.0-32.0); Chloride 106 mmol/L (98-107); Estimated GFR (African America >60 (>=60); Estimated GFR (Non-African Ame >60 (>=60); Glucose 104 mg/dL (74-106); HCG Quantitative 960 mIU/mL; Sodium 140 mmol/L (136-145)
--- NOTE | 2024-02-12 11:07 | US_ITS ---
[address] [address] Patient Name: FATOUMATA VIEYRA MRN: [id number] date: 2000 Sex: F Assigned Patient Location: ER Current Patient Location: ER Accession/Order Number: [id number] Exam Date: 02/12/2024 11:30 Report Date: 02/12/2024 12:50 At the request of: FIORELLA SALAS Procedure: US OB transvaginal PROCEDURE: US OB transvaginal, 02/12/2024 11:30 AM EDT CLINICAL INDICATIONS: Encounter for first trimester , vaginal bleeding for one day LMP 12/28/2023 2 para 1 Expected gestational age: 9 weeks 1 day Expected MYESHA: 09/15/2024 COMPARISON: None TECHNIQUE: Transvaginal first trimester obstetric sonogram, grayscale, color and spectral evaluation. FINDINGS: Uterus: A single intrauterine is identified. Normal yolk sac is suspect. Embryonic pole or cardiac activity could not be documented. A focal maternal uterine abnormality is not demonstrated. Mean gestational sac size: 0.57 cm. Below the available reference data. No significant perigestational hemorrhage. Maternal right ovary: 3.0 x 2.1 x 1.8 cm, volume 6 mL. Normal sonographic morphology. No focal abnormality seen. Maternal left ovary: Not identified. Transvaginal cervical length 3.3 cm, closed No maternal pelvic free fluid. US/US OB transvaginal IMPRESSION: 1. Single intrauterine , uncertain viability. Intrauterine gestational saclike structure with probable normal yolk sac is evident. Embryonic pole or cardiac activity could not be documented. Gestational sac size is below the available reference data for gestational age calculation. 14 day follow-up sonography recommended. 2. No significant perigestational hemorrhage 3. Normal maternal right ovarian sonographic morphology 4. Nonvisualization maternal left ovary 5. No maternal pelvic free fluid Electronically authenticated by: ERNESTO CASE Date: 02/12/2024 12:50
== END 2024-02-12 13:13 | disposition home or self-care (01) ==
PROVIDERS: Emergency Provider Emergency Medicine; PCP Nurse Practitioner Family
DX: O20.0 Threatened abortion (principal); Z3A.00 Weeks of gestation of pregnancy not specified
CPT/HCPCS: 36415; 76817; 80048; 84702; 85025; 86900; 86901; 99284

== ENCOUNTER 2024-02-13 06:21 | Emergency (ER) | payer OTHER, SELFPAY ==
[2024-02-13 06:25] VITALS: BP 135/95; PULSE 72; TEMP 36.8; O2SAT 98; BMI 37.6
--- OUTSIDE RECORDS SUMMARY | 2024-02-13 06:28 | XMS_ITS | CCD ---
Author Organization [facility] Care Team Providers Care Rn Procedure Name Role Phone NAMITA, DR BEAN Primary [...] Reid Jasmine MD Primary Care Provider Anoop ZOOKEEPER-PRIVACY MANAGER, Summer Machado Primary Care Provider SUMMER DAVALOS Attending Unavailable SUMMER DAVALOS Referring Unavailable SUMMER DAVALOS Primary Care Unavailable SUMMER DAVALOS Primary Care Unavailable MARQUES BUTLER Attending Unavailable MADELEINE PRETTY Attending Unavailable Allergies Allergy Classification Reported Allergen(s) Allergy Type Date of Onset Reaction(s) Facility (1 source) Ondansetron Drug Allergy [facility] Repository (1 source) Ondansetron Drug Allergy 08-01-[address] [facility] Work Phone: (3 sources) Ondansetron; Translations: [ONDANSETRON HCL] Drug Allergy 12-11-2022 Rash [facility] Medications Current Medications Medication Drug Class(es) [...] ( test) Ql (U) Negative Normal [facility] Comment on above: Performed By: #### 2 106-3 #### ([id number]) [address] [place] [address], [place] [address] MILTON Glover 2023 BILIRUBIN SUDHIR Negative Normal [facility] Comment on above: Performed By: #### N UM #### ([id number]) [address] [place] [address] [place] [address] BLOOD/HGB SUDHIR Trace Abnormal [facility] Comment on above: Performed By: #### N UM #### ([id number]) [address] [place] [address], [place] [address] GLUCOSE SUDHIR Negative Normal [facility] Comment on above: Performed By: #### N UM #### ([id number]) [address] [place] [address], [place] [address] KETONES SUDHIR Negative Normal [facility] Comment on above: Performed By: #### N UM #### ([id number]) [address] [place] [address] [place] [address] LEUKOCYTE ESTERASE SUDHIR Negative Normal [facility] Comment on above: Performed By: #### N UM #### ([id number]) [address] [place] [address] [place] [address] NITRITE SUDHIR Negative Normal [facility] Comment on above: Performed By: #### N UM #### ([id number]) [address] [place] [address] [place] [address] PH SUDHIR 6.0 Normal 5.0-8.5 [facility] Comment on above: Performed By: #### N UM #### ([id number]) [address] [place] [address] [place] [address] PROTEIN SUDHIR Negative Normal [facility] Comment on above: Performed By: #### N UM #### ([id number]) [address] [place] [address], [place] [address] SPECIFIC GRAVITY SUDHIR >=1.030 Normal 1.003-1.035 [facility] Comment on above: Performed By: #### N UM #### ([id number]) [address] [place] [address] UROBILINOGEN SUDHIR 0.2 eu/dL Normal <1.1 [facility] Comment on above: Performed By: #### N UM #### ([id number]) [address] [place] [address] [facility] PREG QUANT HCGon 024 HCG QUANTITATIVE <1 mIU/mL [facility] Comment on above: 5-50 0.2-1 WEEK 50-500 1-2 WEEKS 100-5,000 2-3 WEEKS 500-10,000 3-4 WEEKS 1,000-50,000 4-5 WEEKS 10,000-100,000 5-6 WEEKS 15,000-200,000 6-8 WEEKS 10,000-100,000 2-3 MONTHS [facility] CBC AUTO DIFFon 01-19-2023 BASO # 0.1 103/ul Normal 0.0-0.1 [facility] Comment on above: Performed By: #### C BC #### [facility] [address] [place] [address] Dr. Kristie Marrero Basophils/100 WBC (Bld) 0.5 % Normal 0.2-2.0 [facility] Comment on above: Performed By: #### C BC #### [facility] [address] [place] [address] Dr. Kristie Marrero EO # 0.2 103/ul Normal 0.0-0.7 [facility] Comment on above: Performed By: #### C BC #### [facility] [address] [place] [address] Dr. Kristie Marrero Eosinophils/100 WBC (Bld) 2.0 % Normal 0.9-7.0 [facility] Comment on above: Performed By: #### C BC #### [facility] [address] [place] [address] Dr. Kristie Marrero Erythrocyte distribution width (RBC) [Ratio] 12.0 % Normal 11.0-15.0 [facility] Comment on above: Performed By: #### C BC #### [facility] [address] [place] [address] Dr. Kristie Marrero Hematocrit (Bld) [Volume fraction] 38.0 % Normal 36.0-48.0 [facility] Comment on above: Performed By: #### C BC #### [facility] [address] [place] [address] Dr. Kristie Marrero Hemoglobin (Bld) [Mass/Vol] 13.3 g/dL Normal 12.0-16.0 [facility] Comment on above: Performed By: #### C BC #### [facility] [address] [place] [address] Dr. Kristie Marrero IG # 0.04 10e3/ul Critically high 0.00-0.[address] [facility] Comment on above: Performed By: #### C BC #### [facility] [address] [place] [address] Dr. Kristie Marrero IG % 0.4 % Normal 0.0-0.5 [facility] Comment on above: Performed By: #### C BC #### [facility] [address] [place] [address] Dr. Kristie Marrero LYMPH # 1.3 103/ul Normal 1.2-3.8 [facility] Comment on above: Performed By: #### C BC #### [facility] [address] [place] [address] Dr. Kristie Marrero Lymphocytes/100 WBC (Bld) 12.3 % Critically low 20.5-60.0 [facility] Comment on above: Performed By: #### C BC #### [facility] [address] [place] [address] Dr. Kristie Marrero MANUAL DIFF REQ NO Normal [facility] Comment on above: Performed By: #### C BC #### [facility] [address] [place] [address] Dr. Kristie Marrero MCH (RBC) [Entitic mass] 29.2 pg Normal 26.7-34.0 [facility] Comment on above: Performed By: #### C BC #### [facility] [address] [address] [address] Kristie Marrero MCHC (RBC) [Mass/Vol] 35.0 g/dL Normal 29.9-35.2 [facility] Comment on above: Performed By: #### C BC #### [facility] [address] [address] [address] Kristie Marrero MCV (RBC) [Entitic vol] 83.3 fL Normal 81.0-99.0 [facility] Comment on above: Performed By: #### C BC #### [facility] [address] [address] [address] Kristie Marrero MONO # 0.7 103/ul Normal 0.3-0.8 [facility] Comment on above: Performed By: #### C BC #### [facility] [address] [address] [address] Kristie Marrero Monocytes/100 WBC (Bld) 7.0 % Normal 1.7-12.0 [facility] Comment on above: Performed By: #### C BC #### [facility] [address] [address] [address] Kristie Marrero NEUT # 8.2 103/ul Critically high 1.4-6.5 [facility] Comment on above: Performed By: #### C BC #### [facility] [address] [address] [address] Krsitie Marrero Neutrophils/100 WBC (Bld) 77.8 % Critically high 43.0-75.0 [facility] Comment on above: Performed By: #### C BC #### [facility] [address] [address] [address] Kristie Marrero Platelet mean volume (Bld) [Entitic vol] 9.5 fL Normal 9.5-13.5 [facility] Comment on above: Performed By: #### C BC #### [facility] [address] [address] [address] Kristie Marrero PLT 265 103/ul Normal 150-[address] [facility] Comment on above: Performed By: #### C BC #### [facility] [address] [place] [address] Dr. Kristie Marrero RBC 4.56 106/ul Normal 4.20-5.40 [facility] Comment on above: Performed By: #### C BC #### [facility] [address] [place] [address] Dr. Kristie Marrero WBC 10.5 103/ul Normal 4.0-11.0 [facility] Comment on above: Performed By: #### C BC #### [facility] [address] [place] [address] Dr. Kristie Marrero PREG HCG QUALon 01-19-2023 , QUAL Negative Normal NEGATIVE [facility] Comment on above: Performed By: #### P REG #### [facility] [address] [place] [address] Dr. Kristie Marrero CHLAMYDIA/GONOCOCCUS RADHA ( AB/URINE/PAPon 11-19-2022 Chlamydia trachomatis, RADHA Negative Normal Negative [facility] Comment on above: Performed By: #### C T/NGNA #### [facility] [address] [place] [address] Dr. Kristie Marrero Neisseria gonorrhoeae, RADHA Negative Normal Negative [facility] Comment on above: Performed By: #### C T/NGNA #### [facility] [address] [place] [address] Dr. Kristie Marrero VAGINITIS/VAGINOSIS DNA PROB Syed 11-18-2022 Jenny species Negative Normal Negative [facility] Comment on above: Performed By: #### V AGINT #### [facility] [address] [place] [address] Dr. Kristie Marrero Gardnerella vaginalis Positive Abnormal Negative [facility] Comment on above: Performed By: #### V AGINT #### [facility] [address] [place] [address] Dr. Kristie Marrero Trichomonas vaginalis Negative Normal Negative [facility] Comment on above: Performed By: #### V AGINT #### [facility] [id number] Kristie Marrero [facility]10 SARS-CoV-2 (COVID-19) RNA RADHA+probe Ql (Unsp spec) Detected Critically abnormal NOT DETECTED [facility] Comment on above: Result Comment: This test is not yet approved or cleared by the [place] FDA. When there are no FDA-approved or cleared tests available, and other criteria are met, FDA can make tests available under an emergency access mechanism called an Emergency Use Authorization (EUA). The EUA for this test is supported by the [employer] of Health and Human Service's (HHS's) declaration [...] longer be used). Performed By: #### [facility] #### [facility] [address] [place], [place] [address] Dr. Kristie Marrero Vital Signs Date Time Vital Sign Value Performing Clinician Facility 12-20-2023 15:22-0400 Body height 170.2 cm Summer LOPEZ Work Phone: [facility] 12-20-2023 15:22-0400 Body mass index (BMI) [Ratio] 38.28 kg/m2 Summer LOPEZ Work Phone: [facility] 12-20-2023 15:22-0400 Body temperature 98.29 [degF] Summer LOPEZ Work Phone: [facility] 12-20-2023 15:22-0400 Body weight 110.86 kg Summer LOPEZ Work Phone: [facility] 12-20-2023 15:22-0400 Diastolic blood pressure 80 mm[Hg] Summer LOPEZ Work Phone: [facility] 12-20-2023 15:22-0400 Heart rate 82 /min Summer Davalos ZOOKEEPER-PRIVACY MANAGER Work Phone: [facility] 12-20-2023 15:22-0400 Respiratory rate 18 /min Summer Davalos ZOOKEEPER-PRIVACY MANAGER Work Phone: [facility] 12-20-2023 15:22-0400 SaO2% (BldA) [Mass fraction] 97 % Summer Davalos ZOOKEEPER-PRIVACY MANAGER Work Phone: [facility] 12-20-2023 15:22-0400 Systolic blood pressure 100 mm[Hg] Summer Davalos APRN-PRIVACY MANAGER Work Phone: [facility] Encounters Encounter Date Encounter Type Care Provider Facility Start: 02-07-2024 End: 02-07-2024 ambulatory MADELEINE MARIA DE JESUS Not Available Start: 01-19-2024 End: 01-19-2024 Emergency department patient visit [facility] Start: 12-20-2023 End: 12-20-2023 ambulatory [facility] Start: 12-20-2023 End: 12-20-2023 Office outpatient visit 15 minutes Summer Davalos APRN-PRIVACY MANAGER Work Phone: [facility] Internal Medicine - Family Medicine Comment [...] Adult depression scr eening assessment Summer Davalos ZOOKEEPER-PRIVACY MANAGER Work Phone: Start: 11-21-2023 [facility] PREG QUANT HCG Core y Ayleen DO Work Phone: Start: 11-16-2022 Microscopic observat ion [Identifier] in Cervix by Cyto stain Summer Davalos ZOOKEEPER-[facility] Work Phone: Plan of Treatment Date Care Activity Detail Author Start: 11-13-2029 DTaP,Tdap and Td Vaccines (7 - Td or Tdap) DTaP,Tdap and Td Vaccines (7 - Td or Tdap) [facility] Start: 11-16-2025 Screening for malign ant neoplasm of cervix Pap Smear [facility] Start: 12-19-2024 Adult BMI Screening Adult BMI Screen ing [facility] Start: 12-19-2024 Depression Screening Depression Scre ening [facility] Start: 12-19-2024 Tobacco Screening Tobacco Screening [facility] Start: 09-14-2024 Adult BMI Follow Up Plan Adult BMI Follow Up Plan [facility] Start: 06-10-2023 Influenza vaccination Influenza Vacc ine (#1) [facility] Immunizations Immunization Date Immunization Notes Care Provider Fa cility 11-13-2019 tetanus toxoid, redu clifford diphtheria toxoid, and acellular pertussis vaccine, adsorbed Summer Davalos ZOOKEEPER-[facility] Work Phone: [facility] 01-22-2014 diphtheria, tetanus toxoids and acellular pertussis vaccine, unspecified formulation Summer Davalos ZOOKEEPER-PRIVACY MANAGER Work Phone: [facility] 06-22-2004 diphtheria, tetanus toxoids and acellular pertussis vaccine Summer Davalos ZOOKEEPER-PRIVACY MANAGER Work Phone: [facility] 06-22-2004 haemophilus influenz ae type b vaccine, PRP-T conjugate Summer Davalos [facility]OOKEEPER-[facility] Work Phone: [facility] 06-22-2004 pneumococcal conjuga te vaccine, 7 valent Summer Davalos ZOOKEEPER-PRIVACY MANAGER Work Phone: [facility] 12-20-2003 DTaP-hepatitis B and poliovirus vaccine Summer aDvalos ZOOKEEPER-PRIVACY MANAGER Work Phone: [facility] 12-20-2003 haemophilus influenz ae type b vaccine, PRP-T conjugate Summer Davalos ZOOKEEPER-PRIVACY MANAGER Work Phone: [facility] 12-20-2003 measles, mumps and rubella virus vaccine Summer Davalos ZOOKEEPER-PRIVACY MANAGER Work Phone: [facility] 12-20-2003 varicella virus vaccine Summer Davalos ZOOKEEPER-PRIVACY MANAGER Work Phone: [facility] 11-11-2003 DTaP-hepatitis B and poliovirus vaccine Summer Davalos ZOOKEEPER-PRIVACY MANAGER Work Phone: [facility] 11-11-2003 haemophilus influenz ae type b vaccine, PRP-T conjugate Summer Davalos ZOOKEEPER-PRIVACY MANAGER Work Phone: [facility] 11-11-2003 pneumococcal conjuga te vaccine, 7 valent Summer Davalos ZOOKEEPER-PRIVACY MANAGER Work Phone: [facility] 05-31-2003 DTaP-hepatitis B and poliovirus vaccine Summer Davalos ZOOKEEPER-PRIVACY MANAGER Work Phone: [facility] 05-31-2003 haemophilus influenz ae type b vaccine, PRP-T conjugate Summer Davalos ZOOKEEPER-PRIVACY MANAGER Work Phone: [facility] 05-31-2003 pneumococcal conjuga te vaccine, 7 valent Summer Davalos ZOOKEEPER-PRIVACY MANAGER Work Phone: [facility] 2002 hepatitis B vaccine, pediatric or pediatric/adolescent dosage Summer Davalos ZOOKEEPER-PRIVACY MANAGER Work Phone: [facility] Payers Date Payer Category Payer Medicaid [id number] 2002 Unknown [id number] 2002 Unknown [id number] [id number] 2002 Unknown [id number] 2.16.84 [id number] 1982 Unknown [id number] 2.16.84 [id number] 1982 Unknown [id number] 2.16.84 [id number] 1982 Unknown [id number] 2.16.84 [id number] 1959 Unknown [id number] 1959 Unknown [id number] Social History Date Type Detail Facility Start: 05-19-2023 Tobacco smoking stat [facility] Tobacco smoking consumption unknown [facility] Start: 05-19-2023 Tobacco use and exposure User of smokeless tobacco [facility] Start: 11-18-2023 End: 12-20-2023 Alcohol intake Lifetime non-drinker (finding) [facility] Start: 11-11-2020 End: 05-19-2023 History of Social function [facility] Start: 11-11-2020 End: 05-19-2023 Tobacco use panel [facility] Start: 2002 Sex Assigned At Not on file N [facility] Start: 01-15-2023 Tobacco smoking stat [facility] Never smoked tobacco [facility] Start: 01-15-2023 Tobacco use and exposure Smokeless tobacco non-user [facility] Frequency of Alcohol Consumption Never [facility] History of Present illness Narrative [...] Thought content normal. Judgment: Judgment normal. Assessment/Plan Ahs was seen today for annual exam. Diagnoses and all orders for this visit: PTSD (post-traumatic stress disorder) - Ambulatory referral to Mental Health Counselor ([facility]); Future General counseling and advice for contraceptive management Class 2 obesity due to excess calories without serious comorbidity with body mass index (BMI) of 37.0 to 37.9 in adult She has her contraception and social media manager care thru Dr Abbasi, she should continue [...] Thrasher 12/20/23 1629 documented in this encounter [facility] Evaluation note Note Date & Type Note Facility Evaluation note Diagnosis PTSD (post-traumatic stress disorder)- Primary Posttraumatic stress disorder General counseling and advice for contraceptive management Class 2 obesity due to excess calories without serious comorbidity with body mass index (BMI) of 37.0 to 37.9 in adult documented in this encounter [facility] Instructions Note Date & Type Note Facility Instructions Not on filedocumented in this en counter [facility] Reason for referral (narrative) Consultation (Routine) - Pending Review Note Date & Type Note Facility Reason for referral (narrati ve) Specialty Diagnoses / Procedures Referred By Vinny t Referred To Contact Diagnoses PTSD (post-traumatic stress disorder) Summer Davalos APRN-FNP [address] [place] [address] Referral ID Status Reason Start Date Expiration Date Visits Requested Visits Authorized [id number] Pending Review Patient Preference 12/20/2023 12/19/2024 1 1 [facility] Summary Purpose Family History No Family History Records FoundNo Family History Records FoundNo Family History Records FoundNo Family History Records Found Advance Directives No Advanced Directives Records FoundNo Advanced Directives Records FoundNo Advanced Directives Records FoundNo Advanced Directives Records Found Additional Source Comments INFORMATION SOURCE (unrecogn ized section and content) DATE CREATED AUTHOR 01/27/2023 [facility] DATE CREATED AUTHOR AUTHOR'S ORGANIZ ATION [facility]20[facility] DATE CREATED AUTHOR AUTHOR'S ORGANIZ ATION 01/20/2024 [facility] DATE CREATED AUTHOR AUTHOR'S ORGANIZ ATION 02/08/2024 [facility] Care Teams (unrecognized sec tion and content) Rn Procedure Relationship Specialty Start Date End Date Reid Jasmine MD PCP - General Family Medicine 08/01/23 Rn Procedure Relationship Specialty Start Date End Date Summer Davalos APRN-FNP [address] [place] [address] PCP - General Internal Medicine 09/14/23 Reason [...] BE BASED ON THE PRIMARY CLINICAL RECORDS. [employer] provides no warranty or guarantee of the accuracy or completeness of information in this document.
--- NOTE | 2024-02-13 06:48 | PC.NURSE ---
patient was seen in ED yesterday for vaginal bleeding. patient is approx 3-4 weeks , has not had an OB appointment yet but has had blood work done to confirm. ultrasound done yesterday showed pole and sac. patient states today she started having lower abdominal cramping with the bleeding. denies any sexual activity in the last couple of days. vital signs stable. no dizziness at this time.
[2024-02-13 07:10] LABS: Basophils Absolute Auto 0.1 10^3/uL (0.0-0.1); Basophils Percent Auto 2.6 % (0.2-2.0); Eosinophils Absolute Auto 0.2 10^3/uL (0.0-0.7); Eosinophils Percent Auto 3.4 % (0.9-7.0); Hematocrit 36.4 % (36.0-48.0); Hemoglobin 12.1 g/dL (12.0-16.0); Immature Granulocytes Abs Auto 0.02 10^3/uL (0.00-0.03); Immature Granulocytes Pct Auto 0.4 % (0.0-0.5); Lymphocytes Absolute Auto 1.8 10^3/uL (1.2-3.8); Lymphocytes Percent Auto 33.5 % (20.5-60.0); Mean Corpuscular HGB Conc 33.2 g/dL (29.9-35.2); Mean Corpuscular Hemoglobin 28.3 pg (26.7-34.0); Mean Corpuscular Volume 85.2 fL (81.0-99.0); Mean Platelet Volume 9.7 fL (9.5-13.5); Monocytes Absolute Auto 0.5 10^3/uL (0.3-0.8); Monocytes Percent Auto 9.8 % (1.7-12.0); Neutrophils Absolute Auto 2.7 10^3/uL (1.4-6.5); Neutrophils Percent Auto 50.3 % (43.0-75.0); Platelet Count 241 10^3/uL (150-450); Red Blood Count 4.27 10^6/uL (4.20-5.40); Red Cell Distribution Width 12.6 % (11.0-15.0); White Blood Count 5.3 10^3/uL (4.0-11.0)
--- NOTE | 2024-02-13 07:23 | ED.PREGNANC1 ---
HPI - General Chief complaint: Urogenital-Female Stated complaint: BLEEDING CRAMPING Time Seen by Provider: 02/13/24 06:50 Source: patient Mode of arrival: walk-in History of Present Illness HPI Narrative: 23-year female presents to the emergency department for vaginal bleeding. She is and was seen here yesterday. At that time she had an ultrasound which showed gestational sac and yolk sac. She has had continued bleeding and now she has some cramping as well. No fever or vomiting. Related Data Home Medications ?Medication ?Instructions ?Recorded ?Confirmed No Known Home Medications 02/12/24 02/12/24 Allergies Allergy/AdvReac Type Severity Reaction Status Date / Time ondansetron [From Zofran] Allergy Mild Verified 04/02/23 22:50 Review of Systems ROS Narrative A ten point review of systems is negative except as noted above. Exam Narrative Exam Narrative: Nurses note and vital signs reviewed and patient is not hypoxic. General: The patient appears well and in no apparent distress. Patient is resting comfortably on cart. Skin: Warm, dry, no pallor noted. There is no rash noted. Head: Normocephalic, atraumatic Eye: Normal conjunctiva, no drainage Ears, Nose, Mouth, and Throat: oral mucosa is moist. Nares patent. Cardiovascular: Regular Rate and Rhythm Respiratory: Patient is in no distress, no accessory muscle use, lungs are clear to auscultation, no wheezing, rales or rhonchi Back: non-tender GI: Soft and nondistended. Minimal tenderness in the lower abdomen. Musculoskeletal: The patient has no evidence of calf tenderness, no pitting edema, symmetrical pulses noted bilaterally Neurological: A&O, normal speech Psychiatric: Cooperative Constitutional Vital Signs, click to edit/add: Last Vital Signs Temp 98.3 F 02/13/24 06:25 Pulse 66 02/13/24 09:18 Resp 16 02/13/24 09:18 BP 121/91 02/13/24 09:18 Pulse Ox 99 02/13/24 09:18 O2 Del Method Room Air 02/13/24 09:18 Course Vital Signs Vital signs: Vital Signs Temperature 98.3 F 02/13/24 06:25 Pulse Rate 72 02/13/24 06:25 Respiratory Rate 16 02/13/24 06:25 Blood Pressure 135/95 H 02/13/24 06:25 Pulse Oximetry 98 02/13/24 06:25 Oxygen Delivery Method Room Air 02/13/24 06:25 Temperature 98.3 F 02/13/24 06:25 Pulse Rate 66 02/13/24 09:18 Respiratory Rate 16 02/13/24 09:18 Blood Pressure 121/91 02/13/24 09:18 Pulse Oximetry 99 02/13/24 09:18 Oxygen Delivery Method Room Air 02/13/24 09:18 MDM - OB/Uterine Contractions MDM Narrative Medical decision making narrative: hCG titer has gone down, today it is 753. Ultrasound shows miscarriage in progress. Case discussed with Dr. Abbasi and follow-up is arranged for this week. Treatment diagnosis and follow-up were discussed thoroughly. Differential Diagnosis Differential diagnosis: Likely other (Miscarriage, threatened miscarriage, incomplete miscarriage) Lab Data Attestation: I reviewed the patient's lab results. Labs: Lab Results 02/13/24 Range/Units 07:01 WBC 5.3 (4.0-11.0) 10^3/uL RBC 4.27 (4.20-5.40) 10^6/uL Hgb 12.1 (12.0-16.0) g/dL Hct 36.4 (36.0-48.0) % MCV 85.2 (81.0-99.0) fL MCH 28.3 (26.7-34.0) pg MCHC 33.2 (29.9-35.2) g/dL RDW 12.6 (11.0-15.0) % Plt Count 241 (150-450) 10^3/uL MPV 9.7 (9.5-13.5) fL Neut % (Auto) 50.3 (43.0-75.0) % Lymph % (Auto) 33.5 (20.5-60.0) % [place] % (Auto) 9.8 (1.7-12.0) % Eos % (Auto) 3.4 (0.9-7.0) % Baso % (Auto) 2.6 H (0.2-2.0) % Neut # (Auto) 2.7 (1.4-6.5) 10^3/uL Lymph # (Auto) 1.8 (1.2-3.8) 10^3/uL [place] # (Auto) 0.5 (0.3-0.8) 10^3/uL Eos # (Auto) 0.2 (0.0-0.7) 10^3/uL Baso # (Auto) 0.1 (0.0-0.1) 10^3/uL Abs Immat Gran (auto) 0.02 (0.00-0.03) 10^3/uL Imm/Tot Granulo (auto) 0.4 (0.0-0.5) % Sodium 140 (136-145) mmol/L Potassium 4.0 (3.5-5.1) mmol/L Chloride 105 (98-107) mmol/L Carbon Dioxide 25.8 (21.0-32.0) mmol/L Anion Gap 13.2 BUN 10.0 (7.0-18.0) mg/dL Creatinine 0.71 (0.55-1.02) mg/dL Est GFR ( Amer) >60 (>=60) Est GFR (Non-Af Amer) >60 (>=60) BUN/Creatinine Ratio 14.1 Glucose 98 (74-106) mg/dL Calcium 9.4 (8.5-10.1) mg/dL HCG, Quant 753 mIU/mL Imaging Data Pelvic ultrasound: Radiologist's impression: ITS Impressions Transvaginal US 02/13/24 08:42 IMPRESSION: Suspected gestational sac in the lower uterine segment with no interval growth. Findings likely represent miscarriage in progress Electronically authenticated by: MARQUES RAMIREZ Date: 02/13/2024 09:22 Discharge Plan Discharge Stand Alone Forms: Portal Instructions Chief Complaint: Urogenital-Female Clinical Impression: Incomplete miscarriage Patient Disposition: Home, Self-Care Time of Disposition Decision: 09:42 Condition: Good Mode of Transportation: Private Vehicle Prescriptions / Home Meds: No Action No Known Home Medications Print Language: Irish Instructions: Miscarriage (ED) Additional Instructions: See Dr. Abbasi this week Referrals: ELISA MARES [Primary Care Provider] - 1 week
[2024-02-13 07:39] VITALS: BP 113/74; PULSE 63; O2SAT 98
[2024-02-13 07:39] LABS: Anion Gap 13.2; BUN Creatinine Ratio 14.1; Calcium 9.4 mg/dL (8.5-10.1); Carbon Dioxide 25.8 mmol/L (21.0-32.0); Chloride 105 mmol/L (98-107); Estimated GFR (African America >60 (>=60); Estimated GFR (Non-African Ame >60 (>=60); Glucose 98 mg/dL (74-106); HCG Quantitative 753 mIU/mL; Sodium 140 mmol/L (136-145)
--- NOTE | 2024-02-13 08:42 | US_ITS ---
The [address] [address] Patient Name: FATOUMATA VIEYRA MRN: [id number] date: 2000 Sex: F Assigned Patient Location: ER Current Patient Location: ER Accession/Order Number: [id number] Exam Date: 02/13/2024 08:45 Report Date: 02/13/2024 09:22 At the request of: FIORELLA SALAS Procedure: US OB transvaginal EXAMINATION: US OB transvaginal HISTORY: Probable miscarriage COMPARISON: 02/12/2024 FINDINGS: Area of anechoic echogenicity identified in the lower uterine segment measuring 6.2 x 4.2 x 6.9 mm with a mean sac diameter 5.8 mm. No pole or yolk sac is observed. Cervix: Closed, 3.7 cm The uterus is normal, anteverted The right ovary is normal Left ovary is not visualized Clinical age: 9 weeks 2 days Clinical MYESHA: 09/15/2024 US/US OB transvaginal IMPRESSION: Suspected gestational sac in the lower uterine segment with no interval growth. Findings likely represent miscarriage in progress Electronically authenticated by: MARQUES RAMIREZ Date: 02/13/2024 09:22
[2024-02-13 09:18] VITALS: BP 121/91; PULSE 66; O2SAT 99
== END 2024-02-13 09:59 | disposition home or self-care (01) ==
PROVIDERS: Internal Medicine; Emergency Provider Emergency Medicine; PCP Nurse Practitioner Family
DX: O03.4 Incomplete spontaneous abortion without complication (principal)
CPT/HCPCS: 36415; 76817; 80048; 84702; 85025; 99284

== ENCOUNTER 2024-02-15 15:57 | Outpatient (OUT) | payer OTHER, SELFPAY ==
[2024-02-15 17:04] LABS: HCG Quantitative 116 mIU/mL
== END 2024-02-15 15:58 | disposition home or self-care (01) ==
LOC: LAB 15:57
PROVIDERS: PCP Nurse Practitioner Family; Visit Provider Obstetrics & Gynecology
DX: O03.9 Complete or unspecified spontaneous abortion without complication (principal); Z51.89 Encounter for other specified aftercare; O36.80X0 Pregnancy with inconclusive fetal viability, not applicable or unspecified
CPT/HCPCS: 36415; 84702

== ENCOUNTER 2024-02-20 09:00 | Outpatient (OUT) | payer OTHER, SELFPAY ==
--- NOTE | 2024-02-20 09:09 | US_ITS ---
[address] [address] Patient Name: FATOUMATA VIEYRA MRN: [id number] date: 2000 Sex: F Assigned Patient Location: LAB Current Patient Location: LAB Accession/Order Number: [id number] Exam Date: 02/20/2024 09:15 Report Date: 02/20/2024 10:05 At the request of: CARMEN CHENEY Procedure: US OB transvaginal EXAMINATION: US OB transvaginal HISTORY: With Uncertain Viability [id number] COMPARISON: 02/13/24 FINDINGS: No intrauterine or ectopic is observed. The uterus is normal in size, contour and echotexture. Endometrium measures 5.1 mm with a small amount of fluid. The right ovary measures 1.9 x 1.4 x 1.2 cm. Normal color flow. Left ovary measures 2.1 x 1.8 x 1.3 cm. Normal color flow No free fluid US/US OB transvaginal IMPRESSION: No intrauterine or ectopic identified Electronically authenticated by: MARQUES RAMIREZ Date: 02/20/2024 10:05
--- OUTSIDE RECORDS SUMMARY | 2024-02-20 09:21 | XMS_ITS | CCD ---
Author Organization [facility] Care Team Providers Care Restaurant Floor Manager Name Role Phone BOYDC, DR BEAN Primary Care Unavailable KARASIK ., [...] ble PAY ., DR TARANGO Admitting Unavailable Mitali MAN, Reid Primary Care Provider Anoop SEPTIC TANK SERVICE TECHNICIAN-PSYCHOLOGIST, Summer Machado Primary Care Provider SUMMER DAVALOS Primary Care Unavailable MARQUES BUTLER Attending Unavailable MADELEINE PRETTY Attending Unavailable CARMEN ABBASI Attending Unavailable SUMMER DAVALOS Attending Unavailable SUMMER DAVALOS Referring Unavailable SUMMER DAVALOS Primary Care Unavailable KATARZYNA, NIVIA L Attending Unavailable SUMMER DAVALOS Referring Unavailable SUMMER DAVALOS Primary Care Unavailable KATARZYNA, NIVIA L Referring Unavailable SUMMER DAVALOS Primary Care Unavailable Allergies Allergy Classification Reported Allergen(s) Allergy Type Date of Onset Reaction(s) Facility (1 source) Ondansetron Drug Allergy [facility] Repository (1 source) Ondansetron Drug Allergy 08-01-2023 [facility] Work Phone: (4 sources) Ondansetron; Translations: [ONDANSETRON HCL] Drug Allergy 12-11-2022 [facility] Medications Current Medications Medication Drug Class(es) Dates [...] source) Chronic neck pain Onset: 01-19-2024 Episodic Spontaneous (3 sources) Complete or unspecified spontaneous without complication; Translations: [Miscarriage] Onset: 02-17-2024 Episodic Unclassified (2 sources) CONTACT W/AND (SUSP) EXPOS COVID-19; Translations: [CONTACT W/AND (SUSP) EXPOS COVID-19] Onset: 05-17-2022 Unclassified (1 source) Medical Screening Onset: 01-19-2024 Unclassified (1 source) Annual Exam Onset: 12-20-2023 Viral infection (1 source) COVID-19; Translations: [COVID-19] Onset: 05-17-2022 Past or Other Problems Problem Classification Problem Date Documented Da te Episodic/Chronic Mood disorders (1 source) Mood disorders Onset: 12-20-2023 12-20-2023 Unclassified (1 source) CONTACT W/AND (SUSP) EXPOS COVID-19; Translations: [CONTACT W/AND (SUSP) EXPOS COVID-19] Onset: 05-07-2022 Unclassified (1 source) Onset: 09-14-2023 09-14-2023 Results Test Name Value Interpretation Reference Range Facility CBC AND AUTO DIFFon 02-17-20 24 ABSOLUTE BASOPHIL 0.2 X10E9/L Normal 0.0-0.2 [facility] Comment on above: Performed By: #### C AFTAB, FEPR, 2276-01 #### [facility] ([id number]) [address], [address] [place] [address] ABSOLUTE NEUTROPHIL 3.1 X10E9/L Normal 1.5-6.6 [facility] Comment on above: Performed By: #### C AFTAB, FEPR, 2276-01 #### [facility] ([id number]) [address], [address] [place] [address] Basophils/100 WBC (Bld) 3.0 % Normal [facility] Comment on above: Performed By: #### C AFTAB, FEPR, 2276-01 #### [facility] ([id number]) [address], [address] [place] [address] Eosinophils (Bld) [#/Vol] 0.2 10*3/uL Normal 0.0-0.4 [facility] Comment on above: Performed By: #### C AFTAB, FEPR, 2276-01 #### [facility] ([id number]) [address], [address] [place] [address] Eosinophils/100 WBC (Bld) 3.4 % Normal [facility] Comment on above: Performed By: #### C AFTAB, FEPR, 4 #### [facility] ([id number]) [address], [address] [place] [address] Erythrocyte distribution width (RBC) [Ratio] 13.3 % Normal 11.5-15.0 [facility] Comment on above: Performed By: #### C AFTAB, FEPR, 2276-01 #### [facility] ([id number]) [address], [address] [place] [address] Hematocrit (Bld) [Volume fraction] 40.3 % Normal 35-47 [facility] Comment on above: Performed By: #### C AFTAB, FEPR, 2276-01 #### [facility] ([id number]) [address], [address] [place] [address] Hemoglobin (Bld) [Mass/Vol] 13.8 g/dL Normal 11.7-15.5 [facility] Comment on above: Performed By: #### C AFTAB, FEPR, 2275- #### [facility] ([id number]) [address], [facility] [address] [place] [address] Lymphocytes (Bld) [#/Vol] 2.1 10*3/uL Normal 1.0-3.5 [facility] Comment on above: Performed By: #### C AFTAB, FEPR, 2276-01 #### [facility] ([id number]) [address], [facility] [address] [place] [address] Lymphocytes/100 WBC (Bld) 35.1 % Normal [facility] Comment on above: Performed By: #### Terri BCA, FEPR, 2276-01 #### [facility] ([id number]) [address], [address] [place] [address] MCH (RBC) [Entitic mass] 29.0 pg Normal 27-34 [facility] Comment on above: Performed By: #### Terri UGALDE, FEPR, 2275- #### [facility] ([id number]) [address], [address] [place] [address] MCHC (RBC) [Mass/Vol] 34.2 g/dL Normal 32-36 [facility] Comment on above: Performed By: #### C BCA, FEPR, 4 #### [facility] ([id number]) [address], [address] [place] [address] MCV (RBC) [Entitic vol] 85 fL Normal 80-100 [facility] Comment on above: Performed By: #### C BCA, FEPR, 2275-4 #### [facility] ([id number]) [address], [address] [place] [address] Monocytes (Bld) [#/Vol] 0.5 10*3/uL Normal 0-0.9 [facility] Comment on above: Performed By: #### C BCA, FEPR, 2275-4 #### [facility] ([id number]) [address], [address] [place] [address] Monocytes/100 WBC (Bld) 7.5 % Normal [facility] Comment on above: Performed By: #### C BCA, FEPR, 2275- #### [facility] ([id number]) [address], [address] [place] [address] Neutrophils/100 WBC (Bld) 51.0 % Normal [facility] Comment on above: Performed By: #### Terri BCA, FEPR, 2275- #### [facility] ([id number]) [address], [address] [place] [address] Platelet mean volume (Bld) [Entitic vol] 8.8 fL Normal 7-12 [facility] Comment on above: Performed By: #### Terri BCA, FEPR, 2275- #### [facility] ([id number]) [address], [address] [place] [address] Platelets (Bld) [#/Vol] 272 10*3/uL Normal 150-450 [facility] Comment on above: Performed By: #### C BCA, FEPR, 2275-4 #### [facility] ([id number]) [address], [address] [place] [address] RBC COUNT 4.75 X10E12/L Normal 3.80-5.20 [facility] Comment on above: Performed By: #### C BCA, FEPR, 2275-4 #### [facility] ([id number]) [address], [address] [place] [address] WBC (Bld) [#/Vol] 6.1 10*3/uL Normal 4.0-11.0 [facility] Comment on above: Performed By: #### C BCA, FEPR, 2276-4 #### [facility] ([id number]) [address], [address] [place] [address] FERRITINon 02-17-2024 Ferritin [Mass/Vol] 50 ng/mL Normal 11-307 [facility] Comment on above: Performed By: #### C BCA, FEPR, 6-4 #### [facility] ([id number]) [address], [address] [place] [address] IRON PROFILEon 02-17-2024 Iron [Mass/Vol] 59 ug/dL Normal 50-170 [facility] Comment on above: Performed By: #### C BCA, FEPR, 6-4 #### [facility] ([id number]) [address], [address] [place] [address] IRON BINDING 384 ug/dL Normal 250-425 [facility] Comment on above: Performed By: #### C BCA, FEPR, 6-4 #### [facility] ([id number]) [address], [address] [place] [address] IRON SATURATION 15 % SATURATION Normal 15-50 [facility] Comment on above: Performed By: #### C BCA, FEPR, 6-4 #### [facility] ([id number]) [address], [address] [place] [address] HCG ( test) Ql (U)o n 01-19-2024 Beta HCG ( test) Ql (U) Negative Normal NEG [facility] Comment on above: Performed By: #### 2 106-3 #### [facility] ([id number]) [address] [place] [address] URN MACROSCOPIC NURon 2023 BILIRUBIN SUDHIR Negative Normal NEG [facility] Comment on above: Performed By: #### N UM #### [facility] ([id number]) [address] [place] [address] BLOOD/HGB SUDHIR Trace Abnormal NEG [facility] Comment on above: Performed By: #### N UM #### [facility] ([id number]) [address] [place] [address] GLUCOSE SUDHIR Negative Normal NEG [facility] Comment on above: Performed By: #### N UM #### [facility] ([id number]) [address] [place] [address] KETONES SUDHIR Negative Normal NEG [facility] Comment on above: Performed By: #### N UM #### [facility] ([id number]) [address] [place] [address] [place] [address] LEUKOCYTE ESTERASE SUDHIR Negative Normal NEG [facility] Comment on above: Performed By: #### N UM #### [facility] ([id number]) [address] [place] [address] NITRITE SUDHIR Negative Normal NEG [facility] Comment on above: Performed By: #### N UM #### [facility] ([id number]) [address] [place] [address] [place] [address] PH SUDHIR 6.0 Normal 5.0-8.5 [facility] Comment on above: Performed By: #### N UM #### [facility] ([id number]) [address] [place] [address] PROTEIN SUDHIR Negative Normal NEG [facility] Comment on above: Performed By: #### N UM #### [facility] ([id number]) [address] [place] [address] [place] [address] SPECIFIC GRAVITY SUDHIR >=1.030 Normal 1.003-1.035 [facility] Comment on above: Performed By: #### N UM #### [facility] ([id number]) [address] [place] [address] UROBILINOGEN SUDHIR 0.2 eu/dL Normal <1.1 [facility] Comment on above: Performed By: #### N UM #### [facility] ([id number]) [address] [place] [address] [facility] PREG QUANT HCGon 024 HCG QUANTITATIVE <1 mIU/mL [facility] Comment on above: 5-50 0.2-1 WEEK 50-500 1-2 WEEKS 100-5,000 2-3 WEEKS 500-10,000 3-4 WEEKS 1,000-50,000 4-5 WEEKS 10,000-100,000 5-6 WEEKS 15,000-200,000 6-8 WEEKS 10,000-100,000 2-3 MONTHS [facility] CBC AUTO DIFFon 01-19-2023 BASO # 0.1 103/ul Normal 0.0-0.1 [facility] Comment on above: Performed By: #### C BC #### [facility] [address] [place] [address] Dr. Kristie Marrero Basophils/100 WBC (Bld) 0.5 % Normal 0.2-2.0 [facility] Comment on above: Performed By: #### C BC #### [facility] [address] [place] [address] Dr. Kristie Marrero EO # 0.2 103/ul Normal 0.0-0.7 [facility] Comment on above: Performed By: #### C BC #### [facility] [address] [place] [address] Dr. Kristie Marrero Eosinophils/100 WBC (Bld) 2.0 % Normal 0.9-7.0 [facility] Comment on above: Performed By: #### C BC #### [facility] [address] [place] [address] Dr. Kristie Marrero Erythrocyte distribution width (RBC) [Ratio] 12.0 % Normal 11.0-15.0 [facility] Comment on above: Performed By: #### C BC #### [facility] [address] [place] [address] Dr. Kristie Marrero Hematocrit (Bld) [Volume fraction] 38.0 % Normal 36.0-48.0 [facility] Comment on above: Performed By: #### C BC #### [facility] [address] [place] [address] Dr. Kristie Marrero Hemoglobin (Bld) [Mass/Vol] 13.3 g/dL Normal 12.0-16.0 [facility] Comment on above: Performed By: #### C BC #### [facility] [address] [place] [address] Dr. Kristie Marrero IG # 0.04 10e3/ul Critically high 0.00-0.03 [facility] Comment on above: Performed By: #### C BC #### [facility] [address] [place] [address] Dr. Kristie Marrero IG % 0.4 % Normal 0.0-0.5 [facility] Comment on above: Performed By: #### C BC #### [facility] [address] [place] [address] Dr. Kristie Marrero LYMPH # 1.3 103/ul Normal 1.2-3.8 [facility] Comment on above: Performed By: #### C BC #### [facility] [address] [place] [address] Dr. Kristie Marrero Lymphocytes/100 WBC (Bld) 12.3 % Critically low 20.5-60.0 [facility] Comment on above: Performed By: #### C BC #### [facility] [address] [place] [address] Dr. Kristie Marrero MANUAL DIFF REQ NO Normal [facility] Comment on above: Performed By: #### C BC #### [facility] [address] [place] [address] Dr. Kristie Marrero MCH (RBC) [Entitic mass] 29.2 pg Normal 26.7-34.0 [facility] Comment on above: Performed By: #### C BC #### [facility] [address] [place] [address] Dr. Kristie Marrero MCHC (RBC) [Mass/Vol] 35.0 g/dL Normal 29.9-35.2 [facility] Comment on above: Performed By: #### C BC #### [facility] [address] [place] [address] Dr. Kristie Marrero MCV (RBC) [Entitic vol] 83.3 fL Normal 81.0-99.0 [facility] Comment on above: Performed By: #### C BC #### [facility] [address] [place] [address] Dr. Kristie Marrero MONO # 0.7 103/ul Normal 0.3-0.8 [facility] Comment on above: Performed By: #### C BC #### [facility] [address] [place] [address] Dr. Kristie Marrero Monocytes/100 WBC (Bld) 7.0 % Normal 1.7-12.0 [facility] Comment on above: Performed By: #### C BC #### [facility] [address] [place] [address] Dr. Kristie Marrero NEUT # 8.2 103/ul Critically high 1.4-6.5 [facility] Comment on above: Performed By: #### C BC #### [facility] [address] [place] [address] Dr. Kristie Marrero Neutrophils/100 WBC (Bld) 77.8 % Critically high 43.0-75.0 [facility] Comment on above: Performed By: #### C BC #### [facility] [address] [place] [address] Dr. Kristie Marrero Platelet mean volume (Bld) [Entitic vol] 9.5 fL Normal 9.5-13.5 [facility] Comment on above: Performed By: #### C BC #### [facility] [address] [place] [address] Dr. Kristie Marrero PLT 265 103/ul Normal 150-450 [facility] Comment on above: Performed By: #### C BC #### [facility] [address] [place] [address] Dr. Kristie Marrero RBC 4.56 106/ul Normal 4.20-5.40 [facility] Comment on above: Performed By: #### C BC #### [facility] [address] [place] [address] Dr. Kristie Marrero WBC 10.5 103/ul Normal 4.0-11.0 [facility] Comment on above: Performed By: #### C BC #### [facility] [address] [place] [address] Dr. Kristie Marrero PREG HCG QUALon 01-19-2023 , QUAL Negative Normal NEGATIVE [facility] Comment on above: Performed By: #### P REG #### [facility] [address] [place] [address] Dr. Kristie Marrero CHLAMYDIA/GONOCOCCUS RADHA (SW AB/URINE/PAPon 11-19-2022 Chlamydia trachomatis, RADHA Negative Normal Negative [facility] Comment on above: Performed By: #### C T/NGNA #### [facility] [address] [place] [address] Dr. Kristie Marrero Neisseria gonorrhoeae, RADHA Negative Normal Negative [facility] Comment on above: Performed By: #### C T/NGNA #### [facility] [address] [place] [address] Dr. Kristie Marrero VAGINITIS/VAGINOSIS DNA PROB Syed 11-18-2022 Jenny species Negative Normal Negative [facility] Comment on above: Performed By: #### V AGINT #### [facility] [address] [place] [address] Dr. Kristie Marrero Gardnerella vaginalis Positive Abnormal Negative [facility] Comment on above: Performed By: #### V AGINT #### [facility] [address] [place] [address] Dr. Kristie Marrero Trichomonas vaginalis Negative Normal Negative [facility] Comment on above: Performed By: #### V AGINT #### [facility] [address] [place], [place] [address] Dr. Kristie Marrero [facility]10 SARS-CoV-2 (COVID-19) RNA RADHA+probe Ql (Unsp spec) Detected Critically abnormal NOT DETECTED [facility] Comment on above: Result Comment: This test is not yet approved or cleared by the [place] FDA. When there are no FDA-approved or cleared tests available, and other criteria are met, FDA can make tests available under an emergency access mechanism called an Emergency Use Authorization (EUA). The EUA for this test is supported by the Record Clerk of Health and Human Service's (HHS's) declaration [...] longer be used). Performed By: #### C VDTB #### [facility] [address] [place] [id number] Kristie Marrero Vital Signs Date Time Vital Sign Value Performing Clinician Facility 12-20-2023 15:22-0400 Body height 170.2 cm Summer LOPEZ Work Phone: [facility] 12-20-2023 15:22-0400 Body mass index (BMI) [Ratio] 38.28 kg/m2 Summer LOPEZ Work Phone: [facility] 12-20-2023 15:22-040 Body temperature 98.29 [degF] Summer LOPEZ Work Phone: [facility] 12-20-2023 15:22-0400 Body weight 110.86 kg Summer Davalos APRN-PSYCHOLOGIST Work Phone: [facility] 12-20-2023 15:22-0400 Diastolic blood pressure 80 mm[Hg] [facility] 12-20-2023 15:22-0400 Heart rate 82 /min Summer Davalos SEPTIC TANK SERVICE TECHNICIAN-PSYCHOLOGIST [facility] 12-20-2023 15:22-0400 Respiratory rate 18 /min Summer Davalos SEPTIC TANK SERVICE TECHNICIAN-PSYCHOLOGIST Work Phone: [facility] [employer] 12-20-2023 15:22-0400 SaO2% (BldA) [Mass fraction] 97 % Summer Davalos SEPTIC TANK SERVICE TECHNICIAN-PSYCHOLOGIST Work Phone: [facility] 12-20-2023 15:22-0400 Systolic blood pressure 100 mm[Hg] Summer Davalos SEPTIC TANK SERVICE TECHNICIAN-PSYCHOLOGIST Work Phone: [facility] [email or web address] Encounters Encounter Date Encounter Type Care Provider Facility Start: 02-17-2024 End: 02-18-2024 ambulatory [facility] Start: 02-17-2024 End: 02-17-2024 ambulatory [facility] Start: 02-15-2024 End: 02-15-2024 ambulatory CARMEN ABBASI Not Available Start: 02-07-2024 End: 02-07-2024 ambulatory MADELEINE PRETTY Not Available Start: 01-19-2024 End: 01-19-2024 Emergency department patient visit [facility] Start: 12-20-2023 End: 12-20-2023 ambulatory [facility] Start: 12-20-2023 End: 12-20-2023 Office outpatient visit 15 minutes Summer Davalos SE[employer]IC TANK SERVICE TECHNICIAN-PSYCHOLOGIST Work Phone: [facility] Comment on above: PTSD (post-traumatic stress disorder) (Primary Dx); General counseling and advice for contraceptive management; Class 2 obesity due to excess calories without serious comorbidity with body mass index (BMI) of 37.0 to 37.9 in adult Start: 11-21-2023 [facility] Result Encounter Carmen Abbasi DO Work Phone: [facility] External Department Unsolicited Start: 11-21-2023 [facility] Result Encounter Carmen Ayleen DO Work Phone: [facility] External Department Unsolicited Start: 01-19-2023 End: 01-19-[address] DOCTOR BREAUX Facility:[facility] Start: 11-16-2022 End: 11-16-[address] BEATA THOMSON . Facility:[facility] Start: 05-07-2022 End: 05-07-[address] SUKHDEEP HERNÁNDEZ . Facility:[facility] Procedures Date Procedure Procedure Detail Performing Clinician Start: 12-20-2023 Adult depression scr eening assessment Summer Anoop ROSENTHAL-PSYCHOLOGIST Work Phone: Start: 11-21-2023 [facility] PREG QUANT HCG Core y Ayleen DO Work Phone: Start: 11-16-2022 Microscopic observat ion [Identifier] in Cervix by Cyto stain Summer Davalos APRN-PSYCHOLOGIST Work Phone: Plan of Treatment Date Care Activity Detail Author Start: 11-13-2029 DTaP,Tdap and Td Vaccines (7 - Td or Tdap) DTaP,Tdap and Td Vaccines (7 - Td or Tdap) [facility] Start: 11-16-2025 Screening for malign ant neoplasm of cervix Pap Smear [facility] Start: 12-19-2024 Adult BMI Screening Adult BMI Screen ing [facility] Start: 12-19-2024 Depression Screening Depression Scre ening [facility] Start: 12-19-2024 Tobacco Screening Tobacco Screening [facility] Start: 09-14-2024 Adult BMI Follow Up Plan Adult BMI Follow Up Plan [facility] Start: 06-10-2023 Influenza vaccination Influenza Vacc ine (#1) [facility] Immunizations Immunization Date Immunization Notes Care Provider Fa cility 11-13-2019 tetanus toxoid, redu clifford diphtheria toxoid, and acellular pertussis vaccine, adsorbed Summer Anoop ROSENTHAL-PSYCHOLOGIST [facility] 01-22-2014 diphtheria, tetanus toxoids and acellular pertussis vaccine, unspecified formulation Summer Davalos APRN-PSYCHOLOGIST Work Phone: [facility] 06-22-2004 diphtheria, tetanus toxoids and acellular pertussis vaccine Summer Davalos SE[employer] TANK SERVICE TECHNICIAN-PSYCHOLOGIST Work Phone: [facility] 06-22-2004 haemophilus influenz ae type b vaccine, PRP-T conjugate Summer Davalos SEPTIC TANK SERVICE TECHNICIAN-PSYCHOLOGIST Work Phone: [facility] 06-22-2004 pneumococcal conjuga te vaccine, 7 valent Summer Davalos SEPTIC TANK SERVICE TECHNICIAN-PSYCHOLOGIST Work Phone: [facility] 12-20-2003 DTaP-hepatitis B and poliovirus vaccine Summer Davalos SEPTIC TANK SERVICE TECHNICIAN-PSYCHOLOGIST Work Phone: [facility] 12-20-2003 haemophilus influenz ae type b vaccine, PRP-T conjugate Summer Davalos SEPTIC TANK SERVICE TECHNICIAN-PSYCHOLOGIST Work Phone: [facility] 12-20-2003 measles, mumps and rubella virus vaccine Summer Davalos SEPTIC TANK SERVICE TECHNICIAN-PSYCHOLOGIST Work Phone: [facility] 12-20-2003 varicella virus vaccine Summer Davalos SEPTIC TANK SERVICE TECHNICIAN-PSYCHOLOGIST Work Phone: [facility] 11-11-2003 DTaP-hepatitis B and poliovirus vaccine Summer Davalos SEPTIC TANK SERVICE TECHNICIAN-PSYCHOLOGIST Work Phone: [facility] 11-11-2003 haemophilus influenz ae type b vaccine, PRP-T conjugate Summer Davalos SEPTIC TANK SERVICE TECHNICIAN-PSYCHOLOGIST Work Phone: [facility] 11-11-2003 pneumococcal conjuga te vaccine, 7 valent Summer Davalos SEPTIC TANK SERVICE TECHNICIAN-PSYCHOLOGIST Work Phone: [facility] 05-31-2003 DTaP-hepatitis B and poliovirus vaccine Summer Davalos SEPTIC TANK SERVICE TECHNICIAN-PSYCHOLOGIST Work Phone: [facility] 05-31-2003 haemophilus influenz ae type b vaccine, PRP-T conjugate Summer Davalos SEPTIC TANK SERVICE TECHNICIAN-PSYCHOLOGIST Work Phone: [facility] 05-31-2003 pneumococcal conjuga te vaccine, 7 valent Summer Davalos SEPTIC TANK SERVICE TECHNICIAN-PSYCHOLOGIST Work Phone: [facility] 2002 hepatitis B vaccine, pediatric or pediatric/adolescent dosage Summer Davalos SEPTIC TANK SERVICE TECHNICIAN-PSYCHOLOGIST Work Phone: [facility] Payers Date Payer Category Payer Medicaid [id number] 2002 Unknown [id number] 2.16.8 [id number] 2002 Unknown [id number] 2.16.84 [id number] 2002 Unknown [id number] 2.16.84 [id number] 2002 Unknown [id number] 2.16.8 [id number] 2002 Unknown [id number] 2.16.8 [id number] 2002 Unknown [id number] 2.16.8 [id number] 1982 Unknown [id number] 2.16.84 [id number] 1982 Unknown [id number] 2.16.84 [id number] 1982 Unknown [id number] 2.16.84 [id number] 1959 Unknown [id number] 1959 Unknown [id number] Social History Date Type Detail Facility [facility]: [facility] Start: 05-19-2023 Tobacco use and exposure User of smokeless tobacco [facility] Start: 11-18-2023 End: 12-20-2023 Alcohol intake Lifetime non-drinker (finding) [facility] Start: 11-11-2020 End: 05-19-2023 History of Social function [facility] Start: 11-11-2020 End: 05-19-2023 Tobacco use panel [facility] Start: 2002 Sex Assigned At Not on file [facility] Start: 01-15-2023 [facility] Start: 01-15-2023 Tobacco use and exposure Smokeless tobacco non-user [facility] Frequency of Alcohol Consumption Never [facility] History of Present illness Narrative 12-20-2023 Summer Davalos, SEPTIC TANK SERVICE TECHNICIAN-PSYCHOLOGIST - 12/20/2023 3:20 PM EDT Note Date [...] in adult 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, she should continue [...] Thrasher 12/20/23 1629 documented in this encounter [facility] Evaluation note Note Date & Type Note Facility Evaluation note Diagnosis PTSD (post-traumatic stress disorder)- Primary Posttraumatic stress disorder General counseling and advice for contraceptive management Class 2 obesity due to excess calories without serious comorbidity with body mass index (BMI) of 37.0 to 37.9 in adult documented in this encounter [facility] Instructions Note Date & Type Note Facility Instructions Not on filedocumented in this en counter [facility] Reason for referral (narrative) Consultation (Routine) - Pending Review Note Date & Type Note Facility Reason for referral (narrati ve) Specialty Diagnoses / Procedures Referred By Vinny stoddard Referred To Contact Diagnoses PTSD (post-traumatic stress disorder) Summer Davalos, JOHN [address] [place] [address] Referral ID Status Reason Start Date Expiration Date Visits Requested Visits Authorized [id number] Pending Review Patient Preference 12/20/2023 12/19/2024 1 1 [facility] Summary Purpose Family History No Family History Records FoundNo Family History Records FoundNo Family History Records FoundNo Family History Records FoundNo Family History Records Found Advance Directives No Advanced Directives Records FoundNo Advanced Directives Records FoundNo Advanced Directives Records FoundNo Advanced Directives Records FoundNo Advanced Directives Records Found Additional Source Comments INFORMATION SOURCE (unrecogn ized section and content) DATE CREATED AUTHOR 01/27/2023 [facility] DATE CREATED AUTHOR AUTHOR'S ORGANIZ ATION 01/20/2024 [facility] DATE CREATED AUTHOR AUTHOR'S ORGANIZ ATION 02/17/2024 [facility] EPIC DATE CREATED AUTHOR AUTHOR'S ORGANIZ ATION 02/19/2024 [facility] DATE CREATED AUTHOR AUTHOR'S ORGANIZ ATION 02/20/2024 [facility] Care Teams (unrecognized sec tion and content) Restaurant Floor Manager Relationship Specialty Start Date End Date Reid Jasmine MD PCP - General Family Medicine 08/01/23 Restaurant Floor Manager Relationship Specialty Start Date End Date Summer Davalos, GALO-PSYCHOLOGIST [address] [id number] PCP - General Internal Medicine 09/14/23 Reason [...] BE BASED ON THE PRIMARY CLINICAL RECORDS. [facility]. provides no warranty or guarantee of the accuracy or completeness of information in this document.
[2024-02-20 11:25] LABS: HCG Quantitative 12 mIU/mL
== END 2024-02-20 09:01 | disposition home or self-care (01) ==
LOC: LAB 09:01
PROVIDERS: PCP Nurse Practitioner Family; Visit Provider Obstetrics & Gynecology
DX: O03.9 Complete or unspecified spontaneous abortion without complication (principal); O36.80X0 Pregnancy with inconclusive fetal viability, not applicable or unspecified; Z51.89 Encounter for other specified aftercare
CPT/HCPCS: 36415; 76817; 84702

== ENCOUNTER 2024-02-29 09:22 | Outpatient (OUT) | payer OTHER, SELFPAY ==
--- OUTSIDE RECORDS SUMMARY | 2024-02-29 09:39 | XMS_ITS | CCD ---
Author Organization [facility] Care Team Providers Care Ukrainian Folk Arts Instructor Name Role Phone BOYDC, DR BEAN Primary [...] PAY ., DR TARANGO Consulting Unavailable REQUEST, NONE LISTED Primary Care Unavaila ble PAY ., DR TARANGO Admitting Unavailable Reid Jasmine MD Primary Care Provider [phone] Anoop ARMORER TECHNICIAN-CREDIT ADMINISTRATION SPECIALIST, Summer Machado Primary Care Provider SUMMER DAVALOS Primary Care Unavailable MARQUES BUTLER Attending Unavailable MADELEINE PRETTY Attending Unavailable CARMEN ABBASI Attending Unavailable SUMMER DAVALOS Attending Unavailable SUMMER DAVALOS Referring Unavailable SUMMER DAVALOS Primary Care Unavailable KATARZYNA, NIVIA L Attending Unavailable USMMER DAVALOS Referring Unavailable SUMMER DAVALOS Primary Care Unavailable KATARZYNA, NIVIA L Referring Unavailable SUMMER DAVALOS Primary Care Unavailable Allergies Allergy Classification Reported Allergen(s) Allergy Type Date of Onset Reaction(s) Facility (1 source) Ondansetron Drug Allergy [facility] Rep[facility] (1 source) Ondansetron Drug Allergy 08-01-2023 [facility] Work Phone: (4 sources) Ondansetron; Translations: [ONDANSETRON HCL] Drug Allergy 12-11-2022 [facility] Medications Current Medications Medication Drug [...] Reference Range Facility CBC AND AUTO DIFFon 05-10-20 24 ABSOLUTE BASOPHIL 0.2 X10E9/L Normal 0.0-0.2 [facility] Comment on above: Performed By: #### C AFTAB, FEPR, 2276-01 #### [facility] ([id number]) [address], [address] [place] [address] ABSOLUTE NEUTROPHIL 3.1 X10E9/L Normal 1.5-6.6 [facility] Comment on above: Performed By: #### C AFTAB, FEPR, 2276-01 #### [facility] ([id number]) [address], [facility] [address] [place] [address] Basophils/100 WBC (Bld) 3.0 % Normal [facility] Comment on above: Performed By: #### C AFTAB, FEPR, 2276-01 #### [facility] ([id number]) [address], [address] [place] [address] Eosinophils (Bld) [#/Vol] 0.2 10*3/uL Normal 0.0-0.4 [facility] Comment on above: Performed By: #### C AFTAB, FEPR, 2276-01 #### [facility] ([id number]) [address], [address] [place] [address] Eosinophils/100 WBC (Bld) 3.4 % Normal [facility] Comment on above: Performed By: #### Terri UGALDE, FEPR, 2276-01 #### [facility] ([id number]) [address], [address] [place] [address] Erythrocyte distribution width (RBC) [Ratio] 13.3 % Normal 11.5-15.0 [facility] Comment on above: Performed By: #### Terri UGALDE, FEPR, 2276-01 #### [facility] ([id number]) [address], [address] [place] [address] Hematocrit (Bld) [Volume fraction] 40.3 % Normal 35-47 [facility] Comment on above: Performed By: #### C AFTAB, FEPR, 2275-4 #### [facility] ([id number]) [address] [place] [address] Hemoglobin (Bld) [Mass/Vol] 13.8 g/dL Normal 11.7-15.5 [facility] Comment on above: Performed By: #### Terir UGALDE, FEPR, 2275-4 #### [facility] ([id number]) [address], [facility] [address] [place] [address] Lymphocytes (Bld) [#/Vol] 2.1 10*3/uL Normal 1.0-3.5 [facility] Comment on above: Performed By: #### C AFTAB, FEPR, 2275- #### [facility] ([id number]) [address], [facility] [address] [place] [address] Lymphocytes/100 WBC (Bld) 35.1 % Normal [facility] Comment on above: Performed By: #### Terri UGALDE, FEPR, 4 #### [facility] ([id number]) [address], [address] [place] [address] MCH (RBC) [Entitic mass] 29.0 pg Normal 27-34 [facility] Comment on above: Performed By: #### Terri UGALDE, FEPR, 2275- #### [facility] ([id number]) [address], [address] [place] [address] MCHC (RBC) [Mass/Vol] 34.2 g/dL Normal 32-36 [facility] Comment on above: Performed By: #### Terri UGALDE, FEPR, 2275-4 #### [facility] ([id number]) [address], [address] [place] [address] MCV (RBC) [Entitic vol] 85 fL Normal 80-100 [facility] Comment on above: Performed By: #### C BCA, FEPR, 2276-01 #### [facility] ([id number]) [address], [address] [place] [address] Monocytes (Bld) [#/Vol] 0.5 10*3/uL Normal 0-0.9 [facility] Comment on above: Performed By: #### C BCA, FEPR, 2275-4 #### [facility] ([id number]) [address], [address] [place] [address] Monocytes/100 WBC (Bld) 7.5 % Normal [facility] Comment on above: Performed By: #### C BCA, FEPR, 2276-01 #### [facility] ([id number]) [address] [place] [address] Neutrophils/100 WBC (Bld) 51.0 % Normal [facility] Comment on above: Performed By: #### Terri BCA, FEPR, 2276-01 #### [facility] ([id number]) [address], [address] [place] [address] Platelet mean volume (Bld) [Entitic vol] 8.8 fL Normal 7-12 [facility] Comment on above: Performed By: #### C BCA, FEPR, 2276-01 #### [facility] ([id number]) [address], [address] [place] [address] Platelets (Bld) [#/Vol] 272 10*3/uL Normal 150-450 [facility] Comment on above: Performed By: #### C BCA, FEPR, 4 #### [facility] ([id number]) [address], [address] [place] [address] RBC COUNT 4.75 X10E12/L Normal 3.80-5.20 [facility] Comment on above: Performed By: #### C BCA, FEPR, 2275-4 #### [facility] ([id number]) [address], [address] [place] [address] WBC (Bld) [#/Vol] 6.1 10*3/uL Normal 4.0-11.0 [facility] Comment on above: Performed By: #### C BCA, FEPR, 2276-4 #### [facility] ([id number]) [address], [address] [place] [address] FERRITINon 02-17-2024 Ferritin [Mass/Vol] 50 ng/mL Normal 11-307 [facility] Comment on above: Performed By: #### C BCA, FEPR, 6-4 #### [facility] ([id number]) [address], [address] [place] [address] IRON PROFILEon 02-17-2024 Iron [Mass/Vol] 59 ug/dL Normal 50-170 [facility] Comment on above: Performed By: #### C BCA, FEPR, 6-4 #### [facility] ([id number]) [address], [address] [place] [address] IRON BINDING 384 ug/dL Normal 250-425 [facility] Comment on above: Performed By: #### C BCA, FEPR, 2276-4 #### [facility] ([id number]) [address], [address] [place] [address] IRON SATURATION 15 % SATURATION Normal 15-50 [facility] Comment on above: Performed By: #### C BCA, FEPR, 6-4 #### [facility] ([id number]) [address], [address] [place] [address] HCG ( test) Ql (U)o n 01-19-2024 Beta HCG ( test) Ql (U) Negative Normal NEG [facility] Comment on above: Performed By: #### 2 106-3 #### [facility] ([id number]) [address] [place] [address] [place] [address] URN MACROSCOPIC NURon 2023 BILIRUBIN SUDHIR Negative Normal NEG [facility] Comment on above: Performed By: #### N UM #### [facility] ([id number]) [address] [place] [address] [place] [address] BLOOD/HGB SUDHIR Trace Abnormal NEG [facility] Comment on above: Performed By: #### N UM #### [facility] ([id number]) [address] [place] [address] [place] [address] GLUCOSE SUDHIR Negative Normal NEG [facility] Comment on above: Performed By: #### N UM #### [facility] ([id number]) [address] [place] [address] [place] [address] KETONES SUDHIR Negative Normal NEG [facility] Comment on above: Performed By: #### N UM #### [facility] ([id number]) [address] [place] [address] [place] [address] LEUKOCYTE ESTERASE SUDHIR Negative Normal NEG [facility] Comment on above: Performed By: #### N UM #### [facility] ([id number]) [address] [place] [address], [place] [address] NITRITE SUDHIR Negative Normal NEG [facility] Comment on above: Performed By: #### N UM #### [facility] ([id number]) [address] [place] [address] [place] [address] PH SUDHIR 6.0 Normal 5.0-8.5 [facility] Comment on above: Performed By: #### N UM #### [facility] ([id number]) [address] [place] [address] [place] [address] PROTEIN SUDHIR Negative Normal NEG [facility] Comment on above: Performed By: #### N UM #### [facility] ([id number]) [address] [place] [address], [place] [address] SPECIFIC GRAVITY SUDHIR >=1.030 Normal 1.003-1.035 [facility] Comment on above: Performed By: #### N UM #### [facility] ([id number]) [address] [place] [address] UROBILINOGEN SUDHIR 0.2 eu/dL Normal <1.1 [facility] Comment on above: Performed By: #### N UM #### [facility] ([id number]) [address] [place] [address] [facility]H PREG QUANT HCGon 024 HCG QUANTITATIVE <1 mIU/mL [facility] Comment on above: 5-50 0.2-1 WEEK 50-500 1-2 WEEKS 100-5,000 2-3 WEEKS 500-10,000 3-4 WEEKS 1,000-50,000 4-5 WEEKS 10,000-100,000 5-6 WEEKS 15,000-200,000 6-8 WEEKS 10,000-100,000 2-3 MONTHS [facility] CBC AUTO DIFFon 01-19-2023 BASO # 0.1 103/ul Normal 0.0-0.1 [facility] Comment on above: Performed By: #### C BC #### [facility] [address] [place] [address] Dr. Kristie Marrero Basophils/100 WBC (Bld) 0.5 % Normal 0.2-2.0 [facility] Comment on above: Performed By: #### C BC #### [facility] [address] [place] [address] Dr. Kristie Marrero EO # 0.2 103/ul Normal 0.0-0.7 [facility] Comment on above: Performed By: #### C BC #### [facility] [address] [place] [address] Dr. Kristie Marrero Eosinophils/100 WBC (Bld) 2.0 % Normal 0.9-7.0 [facility] Comment on above: Performed By: #### C BC #### [facility] [address] [place] [address] Dr. Kristie Marrero Erythrocyte distribution width (RBC) [Ratio] 12.0 % Normal 11.0-15.0 [facility] Comment on above: Performed By: #### C BC #### [facility] [address] [place] [address] Dr. Kristie Marrero Hematocrit (Bld) [Volume fraction] 38.0 % Normal 36.0-48.0 [facility] Comment on above: Performed By: #### C BC #### [facility] [address] [place] [address] Dr. Kristie Marrero Hemoglobin (Bld) [Mass/Vol] 13.3 g/dL Normal 12.0-16.0 [facility] Comment on above: Performed By: #### C BC #### [facility] [address] [place] [address] Dr. Kristie Marrero IG # 0.04 10e3/ul Critically high 0.00-0.03 [facility] Comment on above: Performed By: #### C BC #### [facility] [address] [place] [address] Dr. Kristie Marrero IG % 0.4 % Normal 0.0-0.5 [facility] Comment on above: Performed By: #### C BC #### [facility] [address] [place] [address] Dr. Kristie Marrero LYMPH # 1.3 103/ul Normal 1.2-3.8 [facility] Comment on above: Performed By: #### C BC #### [facility] [address] [place] [address] Dr. Kristie Marrero Lymphocytes/100 WBC (Bld) 12.3 % Critically low 20.5-60.0 [facility] Comment on above: Performed By: #### C BC #### [facility] [address] [place] [address] Dr. Kristie Marrero MANUAL DIFF REQ NO Normal [facility] Comment on above: Performed By: #### C BC #### [facility] [address] [place] [address] Dr. Kristie Marrero MCH (RBC) [Entitic mass] 29.2 pg Normal 26.7-34.0 [facility] Comment on above: Performed By: #### C BC #### [facility] [address] [place] [address] Dr. Kristie Marrero MCHC (RBC) [Mass/Vol] 35.0 g/dL Normal 29.9-35.2 [facility] Comment on above: Performed By: #### C BC #### [facility] [address] [address] [address] Kristie Marrero MCV (RBC) [Entitic vol] 83.3 fL Normal 81.0-99.0 [facility] Comment on above: Performed By: #### C BC #### [facility] [address] [place] [address] Dr. Kristie Marrero MONO # 0.7 103/ul Normal 0.3-0.8 [facility] Comment on above: Performed By: #### C BC #### [facility] [address] [place] [address] Dr. Kristie Marrero Monocytes/100 WBC (Bld) 7.0 % Normal 1.7-12.0 [facility] Comment on above: Performed By: #### C BC #### [facility] [address] [place] [address] Dr. Kristie Marrero NEUT # 8.2 103/ul Critically high 1.4-6.5 [facility] Comment on above: Performed By: #### C BC #### [facility] [address] [place] [address] Dr. Kristie Marrero Neutrophils/100 WBC (Bld) 77.8 % Critically high 43.0-75.0 [facility] Comment on above: Performed By: #### C BC #### [facility] [address] [place] [address] Dr. Kristie Marrero Platelet mean volume (Bld) [Entitic vol] 9.5 fL Normal 9.5-13.5 [facility] Comment on above: Performed By: #### C BC #### [facility] [address] [place] [address] Dr. Kristie Marrero PLT 265 103/ul Normal 150-450 [facility] Comment on above: Performed By: #### C BC #### [facility] [address] [place] [address] Dr. Kristie Marrero RBC 4.56 106/ul Normal 4.20-5.40 [facility] Comment on above: Performed By: #### C BC #### [facility] [address] [place] [address] Dr. Kristie Marrero WBC 10.5 103/ul Normal 4.0-11.0 [facility] Comment on above: Performed By: #### C BC #### [facility] [address] [place] [address] Dr. Kristie Marrero PREG HCG QUALon 01-19-2023 , QUAL Negative Normal NEGATIVE [facility] Comment on above: Performed By: #### P REG #### [facility] [address] [place] [address] Dr. Kristie Marrero CHLAMYDIA/GONOCOCCUS RADHA ( AB/URINE/PAPon 11-19-2022 Chlamydia trachomatis, RADHA Negative Normal Negative [facility] Comment on above: Performed By: #### C T/NGNA #### [facility] [address] [place] [address] Dr. Kristie Marrero Neisseria gonorrhoeae, RADHA Negative Normal Negative [facility] Comment on above: Performed By: #### C T/NGNA #### [facility] [address] [place] [address] Dr. Kristie Marrero VAGINITIS/VAGINOSIS DNA PROB Syed 11-18-2022 Jenny species Negative Normal Negative [facility] Comment on above: Performed By: #### V AGINT #### [facility] [address] [place] [address] Dr. Kristie Marrero Gardnerella vaginalis Positive Abnormal Negative [facility] Comment on above: Performed By: #### V AGINT #### [facility] [address] [place] [address] Dr. Kristie Marrero Trichomonas vaginalis Negative Normal Negative [facility] Comment on above: Performed By: #### V AGINT #### [facility] [address] [place], [place] [address] Dr. Kristie Marrero Covid-19 PCR ([facility])on 04-10 SARS-CoV-2 (COVID-19) RNA RADHA+probe Ql (Unsp spec) Detected Critically abnormal NOT DETECTED [facility] Comment on above: Result Comment: This test is not yet approved or cleared by the [place] FDA. When there are no FDA-approved or cleared tests available, and other criteria are met, FDA can make tests available under an emergency access mechanism called an Emergency Use Authorization (EUA). The EUA for this test is supported by the [place] of Health and Human Service's (HHS's) declaration [...] longer be used). Performed By: #### C VDTBH #### [facility] [address] [id number] Kristie Marrero Vital Signs Date Time Vital Sign Value Performing Clinician Facility 12-20-2023 15:22040 Body height 170.2 cm Summer LOPEZ Work Phone: [facility] [email or web address] [facility] 12-20-2023 15:22-040 Body mass index (BMI) [Ratio] 38.28 kg/m2 Summer LOPEZ Work Phone: [facility] 12-20-2023 15:22-040 Body temperature 98.29 [degF] Summer LOPEZ Work Phone: [facility] 12-20-2023 15:22-0400 Body weight 110.86 kg Summer LOPEZ Work Phone: [facility] 12-20-2023 15:22-0400 Diastolic blood pressure 80 mm[Hg] Summer Kuns ARMORER TECHNICIAN-CREDIT ADMINISTRATION SPECIALIST [facility] 12-20-2023 15:22-0400 Heart rate 82 /min Summer Davalos ARMORER TECHNICIAN-CREDIT ADMINISTRATION SPECIALIST Work Phone: [facility] [email or web address] [facility] 12-20-2023 15:22-0400 Respiratory rate 18 /min Summer Davalos ARMORER TECHNICIAN-CREDIT ADMINISTRATION SPECIALIST Work Phone: [facility] [email or web address] [facility] 12-20-2023 15:22-0400 SaO2% (BldA) [Mass fraction] 97 % Summer Davalos ARMORER TECHNICIAN-CREDIT ADMINISTRATION SPECIALIST Work Phone: [facility] [email or web address] [facility] 12-20-2023 15:22-0400 Systolic blood pressure 100 mm[Hg] Summer Davalos ARMORER TECHNICIAN-CREDIT ADMINISTRATION SPECIALIST Work Phone: [facility] [employer] Encounters Encounter Date Encounter Type Care Provider Facility Start: 02-17-2024 End: 02-18-2024 ambulatory [facility] Start: 02-17-2024 End: 02-17-2024 ambulatory [facility] Start: 02-15-2024 End: 02-15-2024 ambulatory CARMEN ABBASI Not Available Start: 02-07-2024 End: 02-07-2024 ambulatory MADELEINE PRETTY Not Available Start: 01-19-2024 End: 01-19-2024 Emergency department patient visit [facility] Start: 12-20-2023 End: 12-20-2023 ambulatory [facility] Start: 12-20-2023 End: 12-20-2023 Office outpatient visit 15 minutes Summer Davalos ARMORER TECHNICIAN-CREDIT ADMINISTRATION SPECIALIST Work Phone: [facility] Internal Medicine - Family Medicine [...] Result Encounter Carmen Ayleen DO Work Phone: [facility] Unsolicited Start: 01-19-2023 End: 01-19-[address] DOCTOR BREAUX Facility:[facility] Start: 11-16-2022 End: 11-16-[address] BEATA THOMSON . Facility:[facility] Start: 05-07-2022 End: 05-07-[address] SUKHDEEP HERNÁNDEZ . Facility: Procedures Date Procedure Procedure Detail Performing Clinician Start: 12-20-2023 Adult depression scr eening assessment Summer Davalos ARMORER TECHNICIAN-CREDIT ADMINISTRATION SPECIALIST Work Phone: Start: 11-21-2023 [facility] PREG QUANT HCG Core y Ayleen DO Work Phone: Start: 11-16-2022 Microscopic observat ion [Identifier] in Cervix by Cyto stain Summer Davalos APRN-CREDIT ADMINISTRATION SPECIALIST Work Phone: Plan of Treatment Date Care Activity Detail Author Start: 11-13-2029 DTaP,Tdap and Td Vaccines (7 - Td or Tdap) DTaP,Tdap and Td Vaccines (7 - Td or Tdap) [facility] Start: 11-16-2025 Screening for malign ant neoplasm of cervix Pap Smear [facility] Start: 12-19-2024 Adult BMI Screening Adult BMI Screen ing [facility] Start: 12-19-2024 Depression Screening Depression Scre ening [facility] Start: 12-19-2024 Tobacco Screening Tobacco Screening [facility] Start: 09-14-2024 Adult BMI Follow Up Plan Adult BMI Follow Up Plan [facility] Start: 06-10-2023 Influenza vaccination Influenza Vacc ine (#1) [facility] Immunizations Immunization Date Immunization Notes Care Provider Fa cility 11-13-2019 tetanus toxoid, redu clifford diphtheria toxoid, and acellular pertussis vaccine, adsorbed Summer Davalos APRN-CREDIT ADMINISTRATION SPECIALIST Work Phone: [facility] 01-22-2014 diphtheria, tetanus toxoids and acellular pertussis vaccine, unspecified formulation Summer Davalos ARMORER TECHNICIAN-CREDIT ADMINISTRATION SPECIALIST Work Phone: [facility] 06-22-2004 diphtheria, tetanus toxoids and acellular pertussis vaccine Summer Davalos ARMORER TECHNICIAN-CREDIT ADMINISTRATION SPECIALIST Work Phone: [facility] 06-22-2004 haemophilus influenz ae type b vaccine, PRP-T conjugate Summer Davalos ARMORER TECHNICIAN-CREDIT ADMINISTRATION SPECIALIST Work Phone: [facility] 06-22-2004 pneumococcal conjuga te vaccine, 7 valent Summer Davalos ARMORER TECHNICIAN-CREDIT ADMINISTRATION SPECIALIST Work Phone: [facility] 12-20-2003 DTaP-hepatitis B and poliovirus vaccine Summer Davalos ARMORER TECHNICIAN-CREDIT ADMINISTRATION SPECIALIST Work Phone: [facility] 12-20-2003 haemophilus influenz ae type b vaccine, PRP-T conjugate Summer Davalos ARMORER TECHNICIAN-CREDIT ADMINISTRATION SPECIALIST Work Phone: [facility] 12-20-2003 measles, mumps and rubella virus vaccine Summer Davalos ARMORER TECHNICIAN-CREDIT ADMINISTRATION SPECIALIST Work Phone: [facility] 12-20-2003 varicella virus vaccine Summer Davalos ARMORER TECHNICIAN-CREDIT ADMINISTRATION SPECIALIST Work Phone: [facility] 11-11-2003 DTaP-hepatitis B and poliovirus vaccine Summer Davalos ARMORER TECHNICIAN-CREDIT ADMINISTRATION SPECIALIST Work Phone: [facility] 11-11-2003 haemophilus influenz ae type b vaccine, PRP-T conjugate Summer Davalos ARMORER TECHNICIAN-CREDIT ADMINISTRATION SPECIALIST Work Phone: [facility] 11-11-2003 pneumococcal conjuga te vaccine, 7 valent Summer Davalos ARMORER TECHNICIAN-CREDIT ADMINISTRATION SPECIALIST Work Phone: [facility] 05-31-2003 DTaP-hepatitis B and poliovirus vaccine Summer Davalos ARMORER TECHNICIAN-CREDIT ADMINISTRATION SPECIALIST Work Phone: [facility] 05-31-2003 haemophilus influenz ae type b vaccine, PRP-T conjugate Summer Davalos ARMORER TECHNICIAN-CREDIT ADMINISTRATION SPECIALIST Work Phone: [facility] 05-31-2003 pneumococcal conjuga te vaccine, 7 valent Summer Davalos ARMORER TECHNICIAN-CREDIT ADMINISTRATION SPECIALIST Work Phone: [facility] 2002 hepatitis B vaccine, pediatric or pediatric/adolescent dosage Summer Davalos ARMORER TECHNICIAN-CREDIT ADMINISTRATION SPECIALIST Work Phone: [facility] Payers Date Payer Category Payer Medicaid [id number] 2002 Unknown [id number] 2.16.8 [id number] 2002 Unknown [id number] 2.16.84 [id number] 2002 Unknown [id number] 2.16.84 [id number] 2002 Unknown [id number] 2.16.8 [id number] 2002 Unknown [id number] 2.16.8 [id number] 2002 Unknown [id number] 2.16.8 [id number] 1982 Unknown [id number] 2.16.84 [id number] 1982 Unknown [id number] 2.16.84 [id number] 1982 Unknown [id number] 2.16.84 [id number] 1959 Unknown [id number] 1959 Unknown [id number] Social History Date Type Detail Facility Start: 05-19-2023 Tobacco smoking stat [facility] Tobacco smoking consumption unknown [facility] Start: 05-19-2023 Tobacco use and exposure User of smokeless tobacco [facility] Start: 11-18-2023 End: 12-20-2023 Alcohol intake Lifetime non-drinker (finding) [facility] Start: 11-11-2020 End: 05-19-2023 History of Social function [facility] Start: 11-11-2020 End: 05-19-2023 Tobacco use panel [facility] Start: 2000 Sex Assigned At Not on file [facility] Start: 01-15-2023 [facility] Start: 01-15-2023 Tobacco use and exposure Smokeless tobacco non-user [facility] Frequency of Alcohol Consumption Never [facility] History of Present illness Narrative 12-20-2023 Summer Davalos, ARMORER TECHNICIAN-CREDIT ADMINISTRATION SPECIALIST - 12/20/2023 3:20 PM EDT Note Date [...] in adult She has her contraception and commercial census taker care thru Dr Abbasi, she should continue [...] eat right as well JOHN Thrasher 12/20/23 9413 documented in this encounter [facility] Evaluation note Note Date & Type Note Facility Evaluation note Diagnosis PTSD (post-traumatic stress disorder)- Primary Posttraumatic stress disorder General counseling and advice for contraceptive management Class 2 obesity due to excess calories without serious comorbidity with body mass index (BMI) of 37.0 to 37.9 in adult documented in this encounter [facility] Instructions Note Date & Type Note Facility Instructions Not on filedocumented in this en counter [facility] Reason for referral (narrative) Consultation (Routine) - Pending Review Note Date & Type Note Facility Reason for referral (narrati ve) Specialty Diagnoses / Procedures Referred By Vinny stoddard Referred To Contact Diagnoses PTSD (post-traumatic stress disorder) Summer Davalos APRN-FNP [address] [place] [address] Referral ID Status Reason Start Date Expiration Date Visits Requested Visits Authorized [id number] Pending Review Patient Preference 12/20/2023 12/19/2024 1 1 [facility] Summary Purpose Family History No Family [...] and content) DATE CREATED AUTHOR [facility]2023 [facility] DATE CREATED AUTHOR AUTHOR'S ORGANIZ ATION 01/20/2024 [facility] DATE CREATED AUTHOR AUTHOR'S ORGANIZ ATION 02/17/2024 [facility] EPIC DATE CREATED AUTHOR AUTHOR'S ORGANIZ ATION 02/19/2024 [facility] DATE CREATED AUTHOR AUTHOR'S ORGANIZ ATION 02/20/2024 [facility] Teams (unrecognized sec tion and content) [employer] Instructor Relationship Specialty Start Date End Date Reid Jasmine MD PCP - General Family Medicine 08/01/23 [employer] Instructor Relationship Specialty Start Date End Date Summer Davalos, [facility] [address] [place] [address] PCP - General Internal Medicine 09/14/23 Reason [...] BE BASED ON THE PRIMARY CLINICAL RECORDS. [facility] [employer] provides no warranty or guarantee of the accuracy or completeness of information in this document.
[2024-02-29 11:05] LABS: HCG Quantitative 2 mIU/mL
== END 2024-02-29 09:23 | disposition home or self-care (01) ==
LOC: LAB 09:23
PROVIDERS: PCP Nurse Practitioner Family; Visit Provider Obstetrics & Gynecology
DX: O03.9 Complete or unspecified spontaneous abortion without complication (principal); Z51.89 Encounter for other specified aftercare
CPT/HCPCS: 36415; 84702

== ENCOUNTER 2024-03-10 19:13 | Emergency (ER) | payer OTHER, SELFPAY ==
[2024-03-10 19:20] VITALS: BP 141/90; PULSE 90; TEMP 37.4; O2SAT 96; BMI 38.4
[2024-03-10 19:55] LABS: HCG Qualitative Urine* POSITIVE (NEGATIVE); Internal Control Within Normal Limits
--- OUTSIDE RECORDS SUMMARY | 2024-03-10 19:58 | XMS_ITS | CCD ---
Author Organization [facility] Care Team Providers Care Manager Voice Name Role Phone BOYDC, DR BEAN Primary [...] Reid Jasmine MD Primary Care Provider Anoop PLUMBING INSPECTOR-SHOP HELPER, Summer Machado Primary Care Provider SUMMER DAVALOS [...] Facility (1 source) Ondansetron Drug Allergy [facility] Repository (1 source) Ondansetron Drug Allergy 08-01-2023 [facility] Work Phone: (4 sources) Ondansetron; Translations: [ONDANSETRON HCL] Drug Allergy 12-11-2022 [facility] Medications Current Medications Medication Drug Class(es) Dates [...] 24 ABSOLUTE BASOPHIL 0.2 X10E9/L Normal 0.0-0.2 [facility] Comment on above: Performed By: #### C AFTAB, FEPR, 2276-01 #### [facility] ([id number]) [address], [address] [place] [address] ABSOLUTE NEUTROPHIL 3.1 X10E9/L Normal 1.5-6.6 [facility] Comment on above: Performed By: #### C AFTAB, FEPR, 2276-01 #### [facility] ([id number]) [address], [facility] [address] [place] [address] Basophils/100 WBC (Bld) 3.0 % Normal [facility] Comment on above: Performed By: #### C AFTAB, FEPR, 2276-01 #### [facility] ([id number]) [address] [place] [address] Eosinophils (Bld) [#/Vol] 0.2 10*3/uL Normal 0.0-0.4 [facility] Comment on above: Performed By: #### C AFTAB, FEPR, 2276-01 #### [facility] ([id number]) [address] [place] [address] Eosinophils/100 WBC (Bld) 3.4 % Normal [facility] Comment on above: Performed By: #### Terri UGALDE, FEPR, 2276-01 #### [facility] ([id number]) [address], [address] [place] [address] Erythrocyte distribution width (RBC) [Ratio] 13.3 % Normal 11.5-15.0 [facility] Comment on above: Performed By: #### Terri UGALDE, FEPR, 2276-01 #### [facility] ([id number]) [address], [address] [place] [address] Hematocrit (Bld) [Volume fraction] 40.3 % Normal 35-47 [facility] Comment on above: Performed By: #### C AFTAB, FEPR, 2275-4 #### [facility] ([id number]) [address] [place] [address] Hemoglobin (Bld) [Mass/Vol] 13.8 g/dL Normal 11.7-15.5 [facility] Comment on above: Performed By: #### Terri UGALDE, FEPR, 2275-4 #### [facility] ([id number]) [address], [facility] [address] [place] [address] Lymphocytes (Bld) [#/Vol] 2.1 10*3/uL Normal 1.0-3.5 [facility] Comment on above: Performed By: #### C AFTAB, FEPR, 2275- #### [facility] ([id number]) [address], [facility] [address] [place] [address] Lymphocytes/100 WBC (Bld) 35.1 % Normal [facility] Comment on above: Performed By: #### Terri UGALDE, FEPR, 4 #### [facility] ([id number]) [address], [address] [place] [address] MCH (RBC) [Entitic mass] 29.0 pg Normal 27-34 [facility] Comment on above: Performed By: #### Terri UGALDE, FEPR, 2275- #### [facility] ([id number]) [address] [place] [address] MCHC (RBC) [Mass/Vol] 34.2 g/dL Normal 32-36 [facility] Comment on above: Performed By: #### Terri UGALDE, FEPR, 2275-4 #### [facility] ([id number]) [address] [place] [address] MCV (RBC) [Entitic vol] 85 fL Normal 80-100 [facility] Comment on above: Performed By: #### C BCA, FEPR, 2276-01 #### [facility] ([id number]) [address] [place] [address] Monocytes (Bld) [#/Vol] 0.5 10*3/uL Normal 0-0.9 [facility] Comment on above: Performed By: #### C BCA, FEPR, 2275-4 #### [facility] ([id number]) [address] [place] [address] Monocytes/100 WBC (Bld) 7.5 % Normal [facility] Comment on above: Performed By: #### C BCA, FEPR, 2276-01 #### [facility] ([id number]) [address] [place] [address] Neutrophils/100 WBC (Bld) 51.0 % Normal [facility] Comment on above: Performed By: #### Terri BCA, FEPR, 2276-01 #### [facility] ([id number]) [address] [place] [address] Platelet mean volume (Bld) [Entitic vol] 8.8 fL Normal 7-12 [facility] Comment on above: Performed By: #### C BCA, FEPR, 2276-01 #### [facility] ([id number]) [address] [place] [address] Platelets (Bld) [#/Vol] 272 10*3/uL Normal 150-450 [facility] Comment on above: Performed By: #### C BCA, FEPR, 4 #### [facility] ([id number]) [address] [place] [address] RBC COUNT 4.75 X10E12/L Normal 3.80-5.20 [facility] Comment on above: Performed By: #### C BCA, FEPR, 2275-4 #### [facility] ([id number]) [address] [place] [address] WBC (Bld) [#/Vol] 6.1 10*3/uL Normal 4.0-11.0 [facility] Comment on above: Performed By: #### C BCA, FEPR, 2276-4 #### [facility] ([id number]) [address], [address] [place] [address] FERRITINon 02-17-2024 Ferritin [Mass/Vol] 50 ng/mL Normal 11-307 [facility] Comment on above: Performed By: #### C BCA, FEPR, 6-4 #### [facility] ([id number]) [address], [address] [place] [address] IRON PROFILEon 02-17-2024 Iron [Mass/Vol] 59 ug/dL Normal 50-170 [facility] Comment on above: Performed By: #### C BCA, FEPR, 6-4 #### [facility] ([id number]) [address] [place] [address] IRON BINDING 384 ug/dL Normal 250-425 [facility] Comment on above: Performed By: #### C BCA, FEPR, 2276-4 #### [facility] ([id number]) [address] [place] [address] IRON SATURATION 15 % SATURATION Normal 15-50 [facility] Comment on above: Performed By: #### C BCA, FEPR, 6-4 #### [facility] ([id number]) [address] [place] [address] HCG ( test) Ql (U)o n 01-19-2024 Beta HCG ( test) Ql (U) Negative Normal NEG [facility] Comment on above: Performed By: #### 2 106-3 #### [facility] ([id number]) [address] [place] [address] [place] [address] URN MACROSCOPIC NURon 2023 BILIRUBIN SUDHIR Negative Normal NEG [facility] Comment on above: Performed By: #### N UM #### [facility] ([id number]) [address] [place] [address] [place] [address] BLOOD/HGB SUDHIR Trace Abnormal NEG [facility] Comment on above: Performed By: #### N UM #### [facility] ([id number]) [address] [place] [address] [place] [address] GLUCOSE SUDHIR Negative Normal NEG [facility] Comment on above: Performed By: #### N UM #### [facility] ([id number]) [address] [place] [address] [place] [address] KETONES SUDHIR Negative Normal NEG [facility] Comment on above: Performed By: #### N UM #### [facility] ([id number]) [address] [place] [address] [place] [address] LEUKOCYTE ESTERASE SUDHIR Negative Normal NEG [facility] Comment on above: Performed By: #### N UM #### [facility] ([id number]) [address] [place] [address], [place] [address] NITRITE SUDHIR Negative Normal NEG [facility] Comment on above: Performed By: #### N UM #### [facility] ([id number]) [address] [place] [address] [place] [address] PH SUDHIR 6.0 Normal 5.0-8.5 [facility] Comment on above: Performed By: #### N UM #### [facility] ([id number]) [address] [place] [address] [place] [address] PROTEIN SUDHIR Negative Normal NEG [facility] Comment on above: Performed By: #### N UM #### [facility] ([id number]) [address] [place] [address], [place] [address] SPECIFIC GRAVITY SUDHIR >=1.030 Normal 1.003-1.035 [facility] Comment on above: Performed By: #### N UM #### [facility] ([id number]) [address] [place] [address] UROBILINOGEN SUDHIR 0.2 eu/dL Normal <1.1 [facility] Comment on above: Performed By: #### N UM #### [facility] ([id number]) [address] [place] [address] [facility] PREG QUANT HCGon 024 HCG QUANTITATIVE <1 mIU/mL [facility] Comment on above: 5-50 0.2-1 WEEK 50-500 1-2 WEEKS 100-5,000 2-3 WEEKS 500-10,000 3-4 WEEKS 1,000-50,000 4-5 WEEKS 10,000-100,000 5-6 WEEKS 15,000-200,000 6-8 WEEKS 10,000-100,000 2-3 MONTHS [facility] CBC AUTO DIFFon 01-19-2023 BASO # 0.1 103/ul Normal 0.0-0.1 [facility] Comment on above: Performed By: #### C BC #### [facility] [address] [place] [address] Dr. Kristie Marrero Basophils/100 WBC (Bld) 0.5 % Normal 0.2-2.0 [facility] Comment on above: Performed By: #### C BC #### [facility] [address] [place] [address] Dr. Kristie Marrero EO # 0.2 103/ul Normal 0.0-0.7 [facility] Comment on above: Performed By: #### C BC #### [facility] [address] [place] [address] Dr. Kristie Marrero Eosinophils/100 WBC (Bld) 2.0 % Normal 0.9-7.0 [facility] Comment on above: Performed By: #### C BC #### [facility] [address] [place] [address] Dr. Kristie Marrero Erythrocyte distribution width (RBC) [Ratio] 12.0 % Normal 11.0-15.0 [facility] Comment on above: Performed By: #### C BC #### [facility] [address] [place] [address] Dr. Kristie Marrero Hematocrit (Bld) [Volume fraction] 38.0 % Normal 36.0-48.0 [facility] Comment on above: Performed By: #### C BC #### [facility] [address] [place] [address] Dr. Kristie Marrero Hemoglobin (Bld) [Mass/Vol] 13.3 g/dL Normal 12.0-16.0 [facility] Comment on above: Performed By: #### C BC #### [facility] [address] [place] [address] Dr. Kristie Marrero IG # 0.04 10e3/ul Critically high 0.00-0.03 [facility] Comment on above: Performed By: #### C BC #### [facility] [address] [place] [address] Dr. Kristie Marrero IG % 0.4 % Normal 0.0-0.5 [facility] Comment on above: Performed By: #### C BC #### [facility] [address] [place] [address] Dr. Kristie Marrero LYMPH # 1.3 103/ul Normal 1.2-3.8 [facility] Comment on above: Performed By: #### C BC #### [facility] [address] [place] [address] Dr. Kristie Marrero Lymphocytes/100 WBC (Bld) 12.3 % Critically low 20.5-60.0 [facility] Comment on above: Performed By: #### C BC #### [facility] [address] [place] [address] Dr. Kristie Marrero MANUAL DIFF REQ NO Normal [facility] Comment on above: Performed By: #### C BC #### [facility] [address] [place] [address] Dr. Kristie Marrero MCH (RBC) [Entitic mass] 29.2 pg Normal 26.7-34.0 [facility] Comment on above: Performed By: #### C BC #### [facility] [address] [place] [address] Dr. Kristie Marrero MCHC (RBC) [Mass/Vol] 35.0 g/dL Normal 29.9-35.2 [facility] Comment on above: Performed By: #### C BC #### [facility] [address] [address] [address] Kristie Marrero MCV (RBC) [Entitic vol] 83.3 fL Normal 81.0-99.0 [facility] Comment on above: Performed By: #### C BC #### [facility] [address] [place] [address] Dr. Kristie Marrero MONO # 0.7 103/ul Normal 0.3-0.8 [facility] Comment on above: Performed By: #### C BC #### [facility] [address] [place] [address] Dr. Kristie Marrero Monocytes/100 WBC (Bld) 7.0 % Normal 1.7-12.0 [facility] Comment on above: Performed By: #### C BC #### [facility] [address] [place] [address] Dr. Kristie Marrero NEUT # 8.2 103/ul Critically high 1.4-6.5 [facility] Comment on above: Performed By: #### C BC #### [facility] [address] [place] [address] Dr. Kristie Marrero Neutrophils/100 WBC (Bld) 77.8 % Critically high 43.0-75.0 [facility] Comment on above: Performed By: #### C BC #### [facility] [address] [place] [address] Dr. Kristie Marrero Platelet mean volume (Bld) [Entitic vol] 9.5 fL Normal 9.5-13.5 [facility] Comment on above: Performed By: #### C BC #### [facility] [address] [place] [address] Dr. Kristie Marrero PLT 265 103/ul Normal 150-450 [facility] Comment on above: Performed By: #### C BC #### [facility] [address] [place] [address] Dr. Kristie Marrero RBC 4.56 106/ul Normal 4.20-5.40 [facility] Comment on above: Performed By: #### C BC #### [facility] [address] [place] [address] Dr. Kristie Marrero WBC 10.5 103/ul Normal 4.0-11.0 [facility] Comment on above: Performed By: #### C BC #### [facility] [address] [place] [address] Dr. Kristie Marrero PREG HCG QUALon 01-19-2023 , QUAL Negative Normal NEGATIVE [facility] Comment on above: Performed By: #### P REG #### [facility] [address] [place] [address] Dr. Kristie Marrero CHLAMYDIA/GONOCOCCUS RADHA ( AB/URINE/PAPon 11-19-2022 Chlamydia trachomatis, RADHA Negative Normal Negative [facility] Comment on above: Performed By: #### C T/NGNA #### [facility] [address] [place] [address] Dr. Kristie Marrero Neisseria gonorrhoeae, RADHA Negative Normal Negative [facility] Comment on above: Performed By: #### C T/NGNA #### [facility] [address] [place] [address] Dr. Kristie Marrero VAGINITIS/VAGINOSIS DNA PROB Syed 11-18-2022 Jenny species Negative Normal Negative [facility] Comment on above: Performed By: #### V AGINT #### [facility] [address] [place] [address] Dr. Kristie Marrero Gardnerella vaginalis Positive Abnormal Negative [facility] Comment on above: Performed By: #### V AGINT #### [facility] [address] [place] [address] Dr. Kristie Marrero Trichomonas vaginalis Negative Normal Negative [facility] Comment on above: Performed By: #### V AGINT #### [facility] [address] [place], [place] [address] Dr. Kristie Marrero Covid-19 PCR ([facility])on 04-10 SARS-CoV-2 (COVID-19) RNA RADHA+probe Ql (Unsp spec) Detected Critically abnormal NOT DETECTED [facility] Comment on above: Result Comment: This test is not yet approved or cleared by the [place] FDA. When there are no FDA-approved or cleared tests available, and other criteria are met, FDA can make tests available under an emergency access mechanism called an Emergency Use Authorization (EUA). The EUA for this test is supported by the [place] Health and Human Service's (HHS's) declaration [...] used). Performed By: #### C VDTBH #### [facility] [id number] Kristie Marrero Vital Signs Date Time Vital Sign Value Performing Clinician Facility 12-20-2023 15:22040 Body height 170.2 cm Summer LOPEZ Work Phone: [facility] [employer] [facility] 12-20-2023 15:22-040 Body mass index (BMI) [Ratio] 38.28 kg/m2 Summer LOPEZ Work Phone: [facility] 12-20-2023 15:22-040 Body temperature 98.29 [degF] Summer LOPEZ Work Phone: [facility] 12-20-2023 15:22-0400 Body weight 110.86 kg Summer LOPEZ Work Phone: [facility] 12-20-2023 15:22-0400 Diastolic blood pressure 80 mm[Hg] Summer Kuns PLUMBING INSPECTOR-SHOP HELPER Work Phone: [facility] 12-20-2023 15:22-0400 Heart rate 82 /min Summer Davalos PLUMBING INSPECTOR-SHOP HELPER Work Phone: [facility] [employer] [facility] 12-20-2023 15:22-0400 Respiratory rate 18 /min Summer Davalos PLUMBING INSPECTOR-SHOP HELPER Work Phone: [facility] [employer] [facility] 12-20-2023 15:22-0400 SaO2% (BldA) [Mass fraction] 97 % Summer Davalos PLUMBING INSPECTOR-SHOP HELPER Work Phone: [facility] [employer] [facility] 12-20-2023 15:22-0400 Systolic blood pressure 100 mm[Hg] Summer Davalos PLUMBING INSPECTOR-SHOP HELPER Work Phone: [facility] [employer] Encounters Encounter Date Encounter Type Care Provider Facility Start: 02-17-2024 End: 02-18-2024 ambulatory [facility] Start: 02-17-2024 End: 02-17-2024 ambulatory [facility] Start: 02-15-2024 End: 02-15-2024 ambulatory CARMEN ABBASI Not Available Start: 02-07-2024 End: 02-07-2024 ambulatory MADELEINE PRETTY Not Available Start: 01-19-2024 End: 01-19-2024 Emergency department patient visit [facility] Start: 12-20-2023 End: 12-20-2023 ambulatory [facility] Start: 12-20-2023 End: 12-20-2023 Office outpatient visit 15 minutes Summer Davalos PLUMBING INSPECTOR-SHOP HELPER Work Phone: [facility] Internal Medicine - Family Medicine [...] Adult depression scr eening assessment Summer Davalos PLUMBING INSPECTOR-SHOP HELPER Work Phone: Start: 11-21-2023 [facility] PREG QUANT HCG Core y Ayleen DO Work Phone: Start: 11-16-2022 Microscopic observat ion [Identifier] in Cervix by Cyto stain Summer Davalos APRN-SHOP HELPER Work Phone: Plan of Treatment Date Care Activity Detail Author Start: 11-13-2029 DTaP,Tdap and Td Vaccines (7 - Td or Tdap) DTaP,Tdap and Td Vaccines (7 - Td or Tdap) [facility] Start: 11-16-2025 Screening for malign ant neoplasm of cervix Pap Smear [facility] Start: 12-19-2024 Adult BMI Screening Adult BMI Screen ing [facility] Start: 12-19-2024 Depression Screening Depression Scre ening [facility] Start: 12-19-2024 Tobacco Screening Tobacco Screening [facility] Start: 09-14-2024 Adult BMI Follow Up Plan Adult BMI Follow Up Plan [facility] Start: 06-10-2023 Influenza vaccination Influenza Vacc ine (#1) [facility] Immunizations Immunization Date Immunization Notes Care Provider Fa cility 11-13-2019 tetanus toxoid, redu clifford diphtheria toxoid, and acellular pertussis vaccine, adsorbed Summer Davalos APRN-SHOP HELPER Work Phone: [facility] 01-22-2014 diphtheria, tetanus toxoids and acellular pertussis vaccine, unspecified formulation Summer Davalos PLUMBING INSPECTOR-SHOP HELPER Work Phone: [facility] 06-22-2004 diphtheria, tetanus toxoids and acellular pertussis vaccine Summer Davalos PLUMBING INSPECTOR-SHOP HELPER Work Phone: [facility] 06-22-2004 haemophilus influenz ae type b vaccine, PRP-T conjugate Summer Davalos PLUMBING INSPECTOR-SHOP HELPER Work Phone: [facility] 06-22-2004 pneumococcal conjuga te vaccine, 7 valent Summer Davalos PLUMBING INSPECTOR-SHOP HELPER Work Phone: [facility] 12-20-2003 DTaP-hepatitis B and poliovirus vaccine Summer Davalos PLUMBING INSPECTOR-SHOP HELPER Work Phone: [facility] 12-20-2003 haemophilus influenz ae type b vaccine, PRP-T conjugate Summer Davalos PLUMBING INSPECTOR-SHOP HELPER Work Phone: [facility] 12-20-2003 measles, mumps and rubella virus vaccine Summer Davalos PLUMBING INSPECTOR-SHOP HELPER Work Phone: [facility] 12-20-2003 varicella virus vaccine Summer Davalos PLUMBING INSPECTOR-SHOP HELPER Work Phone: [facility] 11-11-2003 DTaP-hepatitis B and poliovirus vaccine Summer Davalos PLUMBING INSPECTOR-SHOP HELPER Work Phone: [facility] 11-11-2003 haemophilus influenz ae type b vaccine, PRP-T conjugate Summer Davalos PLUMBING INSPECTOR-SHOP HELPER Work Phone: [facility] 11-11-2003 pneumococcal conjuga te vaccine, 7 valent Summer Davalos PLUMBING INSPECTOR-SHOP HELPER Work Phone: [facility] 05-31-2003 DTaP-hepatitis B and poliovirus vaccine Summer Davalos PLUMBING INSPECTOR-SHOP HELPER Work Phone: [facility] 05-31-2003 haemophilus influenz ae type b vaccine, PRP-T conjugate Summer Davalos PLUMBING INSPECTOR-SHOP HELPER Work Phone: [facility] 05-31-2003 pneumococcal conjuga te vaccine, 7 valent Summer Davalos PLUMBING INSPECTOR-SHOP HELPER Work Phone: [facility] 2002 hepatitis B vaccine, pediatric or pediatric/adolescent dosage Summer Davalos PLUMBING INSPECTOR-SHOP HELPER Work Phone: [facility] Payers Date Payer Category Payer Medicaid [id number] 2002 Unknown [id number] 2.16.8 [id number] 2002 Unknown [id number] 2.16.84 [id number] 2002 Unknown [id number] 2.16.84 [id number] 2002 Unknown [id number] 2.16.8 [id number] 2002 Unknown [id number] 2.16.8 [id number] 2002 Unknown [id number] 2.16.8 [id number] 1982 Unknown [id number] 2.16.84 [id number] 1982 Unknown [id number] 2.16.84 [id number] 1982 Unknown [id number] 2.16.84 [id number] 1959 Unknown [id number] 1959 Unknown [id number] Social History Date Type Detail Facility Start: 05-19-2023 Tobacco smoking stat [facility] Tobacco smoking consumption unknown [facility] Start: 05-19-2023 Tobacco use and exposure User of smokeless tobacco [facility] Start: 11-18-2023 End: 12-20-2023 Alcohol intake Lifetime non-drinker (finding) [facility] Start: 11-11-2020 End: 05-19-2023 History of Social function [facility] Start: 11-11-2020 End: 05-19-2023 Tobacco use panel [facility] Start: 2002 Sex Assigned At Not on file [facility] Start: 01-15-2023 [facility] Start: 01-15-2023 Tobacco use and exposure Smokeless tobacco non-user [facility] Frequency of Alcohol Consumption Never [facility] History of Present illness Narrative 12-20-2023 Summer Davalos, PLUMBING INSPECTOR-SHOP HELPER - 12/20/2023 3:20 PM EDT Note Date [...] in adult She has her contraception and hook up care thru Dr Abbasi, she should continue [...] eat right as well JOHN Thrasher 12/20/23 5395 documented in this encounter [facility] Evaluation note Note Date & Type Note Facility Evaluation note Diagnosis PTSD (post-traumatic stress disorder)- Primary Posttraumatic stress disorder General counseling and advice for contraceptive management Class 2 obesity due to excess calories without serious comorbidity with body mass index (BMI) of 37.0 to 37.9 in adult documented in this encounter [facility] Instructions Note Date & Type Note Facility Instructions Not on filedocumented in this en counter [facility] Reason for referral (narrative) Consultation (Routine) - Pending Review Note Date & Type Note Facility Reason for referral (narrati ve) Specialty Diagnoses / Procedures Referred By Vinny stoddard Referred To Contact Diagnoses PTSD (post-traumatic stress disorder) Summer Davalos APRN-FNP [address] [place] [address] Referral ID Status Reason Start Date Expiration Date Visits Requested Visits Authorized [id number] Pending Review Patient Preference 12/20/2023 12/19/2024 1 1 [facility] Summary Purpose Family History No [...] and content) DATE CREATED AUTHOR 01/27/2023 [facility] DATE CREATED AUTHOR AUTHOR'S ORGANIZ ATION 01/20/2024 [facility] DATE CREATED AUTHOR AUTHOR'S ORGANIZ ATION 02/17/2024 [facility] EPIC DATE CREATED AUTHOR AUTHOR'S ORGANIZ ATION 02/19/2024 [facility] DATE CREATED AUTHOR AUTHOR'S ORGANIZ ATION 02/20/2024 [facility] Care Teams (unrecognized sec tion and content) Manager Voice Relationship Specialty Start Date End Date Reid Jasmine MD PCP - General Family Medicine 08/01/23 Manager Voice Relationship Specialty Start Date End Date Summer Davalos, [facility] [address] [place] [address] PCP - General Internal Medicine 09/14/23 Reason [...] BE BASED ON THE PRIMARY CLINICAL RECORDS. [facility] [employer] provides no warranty or guarantee of the accuracy or completeness of information in this document.
[2024-03-10 20:20] LABS: HCG Quantitative 220 mIU/mL
--- NOTE | 2024-03-10 21:19 | ED_ITS ---
HPI - Female Genitourinary General Chief complaint: OB/Uterine Contractions Stated complaint: Check for Time Seen by Provider: 03/10/24 21:04 Source: patient Mode of arrival: walk-in History of Present Illness HPI Narrative: Patient is a 23-year-old female presents to the ER with concerns of positive test at home. Patient is G3, with recent miscarriage on February 12. Patient has documented quantitative hCG of 2 and had a ultrasound done on 02/20/2024 that showed no ectopic or intrauterine . Patient states she was advised to wait at least 1 full cycle before trying to get but believes she got before this as she has been sexually active. She currently denies any abdominal pain, pelvic pain or vaginal discharge. She denies any dysuria. 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 Patient appears in no distress.Patient reports her last period was before her Last . MD elicited complaint: Denies vaginal bleeding, vaginal discharge or pelvic pain Sexual activity: Reports Yes Patient : Yes Possible : Reports at home test positive Related Data Home Medications ?Medication ?Instructions ?Recorded ?Confirmed No Known Home Medications 02/12/24 03/10/24 Allergies Allergy/AdvReac Type Severity Reaction Status Date / Time ondansetron [From Zofran] Allergy Mild Verified 03/10/24 19:28 Review of Systems ROS Constitutional Denies: fever or chills Eyes Denies: change in vision Ears, nose, mouth, and throat Denies: throat pain or neck pain Cardiovascular Denies: chest pain or palpitations Respiratory Denies: shortness of breath, cough or wheezing Gastrointestinal Denies: abdominal pain, nausea or vomiting Genitourinary Denies: painful urination Musculoskeletal Denies: back pain or neck pain Integumentary/Breast Denies: rash or itching Neurological Denies: headache Psychiatric Denies: anxiety or mood swings Exam Narrative Exam Narrative: Nurses notes and vital signs reviewed and patient is not hypoxic. General: The patient appears well and in no apparent distress. Patient is resting comfortably on cart. Skin: Warm, dry, no pallor noted. Head: Normocephalic, atraumatic Neck: Supple, trachea mid-line, no tenderness, no lymphadenopathy Eye: Pupils are equal, round and reactive to light, EOMI Ears, Nose, Mouth, and Throat: TM are clear, normal light reflex, oral mucosa is moist, no posterior oropharynx erythema or hypertrophy, uvula is mid-line Cardiovascular: Regular Rate and Rhythm Respiratory: Patient is in no distress, no accessory muscle use, lungs are clear to auscultation, no wheezing, rales or rhonchi. Chest Wall: no tenderness Back: non-tender, no CVA tenderness Musculoskeletal: normal ROM, no tenderness, no swelling GI: Normal bowel sounds, no tenderness to palpation, no masses appreciated. No rebound, guarding, or rigidity noted. Neurological: A&O x4 Psychiatric: Cooperative Constitutional Vital Signs, click to edit/add: Last Vital Signs Temp 99.4 F 03/10/24 19:20 Pulse 90 03/10/24 19:20 Resp 16 03/10/24 19:20 BP 141/90 03/10/24 19:20 Pulse Ox 96 03/10/24 19:20 Course Vital Signs Vital signs: Vital Signs Temperature 99.4 F 03/10/24 19:20 Pulse Rate 90 03/10/24 19:20 Respiratory Rate 16 03/10/24 19:20 Blood Pressure 141/90 03/10/24 19:20 Pulse Oximetry 96 03/10/24 19:20 Temperature 99.4 F 03/10/24 19:20 Pulse Rate 90 03/10/24 19:20 Respiratory Rate 16 03/10/24 19:20 Blood Pressure 141/90 03/10/24 19:20 Pulse Oximetry 96 03/10/24 19:20 MDM - Female Genitourinary MDM Narrative Medical decision making narrative: At home positive test, quantitative hCG today is 220. Reviewed her ultrasound from 02/19 and her last quant from her previous miscarriage which she reports passing clots in early February with quantitative hCG down to 2. At the patient's request I did contact her BURGLARY INVESTIGATOR. Recommends repeat quantitative hCG in 48 hours. Patient is to call the office to discuss possible suppositories. Patient may return to the ER if any new symptoms develop such as bleeding or pelvic pain. The patient is to followup with primary care physician in next 2-3 days or to return to the emergency department should any of the signs or symptoms worsen or new symptoms develop. Patient had questions answered. The patient agrees with the following Diagnosis and Treatment plan and the patient will be discharged home. Lab Data Attestation: I reviewed the patient's lab results. Labs: Lab Results 03/10/24 03/10/24 Range/Units 19:30 19:38 HCG, Quant 220 mIU/mL Urine HCG, Qual Positive A (NEGATIVE) Discharge Plan Discharge Stand Alone Forms: Portal Instructions Chief Complaint: OB/Uterine Contractions Clinical Impression: Threatened miscarriage, Patient Disposition: Home, Self-Care Time of Disposition Decision: 21:19 Condition: Good Prescriptions / Home Meds: No Action No Known Home Medications Print Language: Mozambican Instructions: (ED) Additional Instructions: Call Dr. Abbasi's office Tuesday after Quant is drawn. for further eval. Referrals: Harry Abbasi DO [Physician] - 1 week ELISA MARES [Primary Care Provider] - 1 week
[2024-03-10 21:34] VITALS: BP 124/98; PULSE 85; O2SAT 98
== END 2024-03-10 21:34 | disposition home or self-care (01) ==
PROVIDERS: Emergency Provider Emergency Medicine; PCP Nurse Practitioner Family
DX: O20.0 Threatened abortion (principal); Z3A.00 Weeks of gestation of pregnancy not specified
CPT/HCPCS: 36415; 84702; 84703; 99284

== ENCOUNTER 2024-03-12 12:47 | Outpatient (OUT) | payer OTHER, SELFPAY ==
[2024-03-12 14:45] LABS: HCG Quantitative 481 mIU/mL
== END 2024-03-12 12:48 | disposition home or self-care (01) ==
PROVIDERS: PCP Nurse Practitioner Family; Visit Provider Personal Emergency Response Attendant
DX: O20.0 Threatened abortion (principal)
CPT/HCPCS: 36415; 84702

== ENCOUNTER 2024-03-21 09:45 | Outpatient (RCR) | payer OTHER, SELFPAY ==
[2024-03-21 13:00] LABS: HCG Quantitative 19030 mIU/mL
[2024-03-28 15:22] LABS: HCG Quantitative 61982 mIU/mL
== END 2024-04-08 23:59 | disposition home or self-care (01) ==
LOC: LAB 09:45
PROVIDERS: PCP Nurse Practitioner Family; Visit Provider Obstetrics & Gynecology
DX: Z32.01 Encounter for pregnancy test, result positive (principal)
CPT/HCPCS: 36415; 84702

== ENCOUNTER 2024-04-09 10:35 | Emergency (ER) | payer OTHER, SELFPAY ==
[2024-04-09 10:40] VITALS: BP 126/90; PULSE 99; TEMP 36.3; O2SAT 100; BMI 38.5
[2024-04-09] MEDS: lidocaine HCL 15 ML, MAG HYDROX/ALUMINUM HYD/SIMETH 30 ML, HYOSCYAMINE SULFATE 0.25 MG PO (11:02)
--- OUTSIDE RECORDS SUMMARY | 2024-04-09 11:04 | XMS_ITS | CCD ---
Author Organization [facility] Care Team Providers Care Global Marketing Operations Manager Name Role Phone BOYDC, DR BEAN [...] Unavailable Reid Jasmine MD Primary Care Provider Kunemma CUTTING MACHINE TENDER-CREDENTIALING MANAGER, Summer Machado Primary Care Provider SUMMER [...] Facility (1 source) Ondansetron Drug Allergy [facility] Repository (1 source) Ondansetron Drug Allergy 08-01-2023 Rash [facility] Work Phone: (4 sources) Ondansetron; Translations: [ONDANSETRON HCL] Drug Allergy 12-11-2022 [facility] Medications Current Medications Medication Drug [...] 24 ABSOLUTE BASOPHIL 0.2 X10E9/L Normal 0.0-0.2 [facility] Comment on above: Performed By: #### C AFTAB FEPR, 2276-01 #### [facility] ([id number]) [address], [address] [place] [address] ABSOLUTE NEUTROPHIL 3.1 X10E9/L Normal 1.5-6.6 [facility] Comment on above: Performed By: #### C AFTAB, FEPR, 2276-01 #### [facility] ([id number]) [address], [address] [place] [address] Basophils/100 WBC (Bld) 3.0 % Normal [facility] Comment on above: Performed By: #### C AFTAB FEPR, 2276-01 #### [facility] ([id number]) [address], [address] [place] [address] Eosinophils (Bld) [#/Vol] 0.2 10*3/uL Normal 0.0-0.4 [facility] Comment on above: Performed By: #### C AFTAB, FEPR, 2276-01 #### [facility] ([id number]) [address], [address] [place] [address] Eosinophils/100 WBC (Bld) 3.4 % Normal [facility] Comment on above: Performed By: #### C AFTAB FEPR, 2276-01 #### [facility] ([id number]) [address], [address] [place] [address] Erythrocyte distribution width (RBC) [Ratio] 13.3 % Normal 11.5-15.0 [facility] Comment on above: Performed By: #### Terri UGALDE, FEPR, 2276-01 #### [facility] ([id number]) [address], [address] [place] [address] Hematocrit (Bld) [Volume fraction] 40.3 % Normal 35-47 [facility] Comment on above: Performed By: #### C AFTAB, FEPR, 4 #### [facility] ([id number]) [address] [place] [address] Hemoglobin (Bld) [Mass/Vol] 13.8 g/dL Normal 11.7-15.5 [facility] Comment on above: Performed By: #### C AFTAB, FEPR, 2275- #### [facility] ([id number]) [address], [address] [place] [address] Lymphocytes (Bld) [#/Vol] 2.1 10*3/uL Normal 1.0-3.5 [facility] Comment on above: Performed By: #### C AFTAB, FEPR, 2276-01 #### [facility] ([id number]) [address], [address] [place] [address] Lymphocytes/100 WBC (Bld) 35.1 % Normal [facility] Comment on above: Performed By: #### Terri UGALDE, FEPR, 2276-01 #### [facility] ([id number]) [address], [address] [place] [address] MCH (RBC) [Entitic mass] 29.0 pg Normal 27-34 [facility] Comment on above: Performed By: #### C AFTAB, FEPR, 2275- #### [facility] ([id number]) [address], [address] [place] [address] MCHC (RBC) [Mass/Vol] 34.2 g/dL Normal 32-36 [facility] Comment on above: Performed By: #### C BCA, FEPR, 2276-01 #### [facility] ([id number]) [address], [address] [place] [address] MCV (RBC) [Entitic vol] 85 fL Normal 80-100 [facility] Comment on above: Performed By: #### C AFTAB, FEPR, 2276-01 #### [facility] ([id number]) [address], [address] [place] [address] Monocytes (Bld) [#/Vol] 0.5 10*3/uL Normal 0-0.9 [facility] Comment on above: Performed By: #### C BCA, FEPR, 2275-4 #### [facility] ([id number]) [address], [address] [place] [address] Monocytes/100 WBC (Bld) 7.5 % Normal [facility] Comment on above: Performed By: #### Terir UGALDE, FEPR, 2276-01 #### [facility] ([id number]) [address] [place] [address] Neutrophils/100 WBC (Bld) 51.0 % Normal [facility] Comment on above: Performed By: #### Terri BCA, FEPR, 2276-01 #### [facility] ([id number]) [address] [place] [address] Platelet mean volume (Bld) [Entitic vol] 8.8 fL Normal 7-12 [facility] Comment on above: Performed By: #### Terri BCA, FEPR, 2276-01 #### [facility] ([id number]) [address] [place] [address] Platelets (Bld) [#/Vol] 272 10*3/uL Normal 150-450 [facility] Comment on above: Performed By: #### Terri BCA, FEPR, 2275-4 #### [facility] ([id number]) [address] [place] [address] RBC COUNT 4.75 X10E12/L Normal 3.80-5.20 [facility] Comment on above: Performed By: #### Terri BCA, FEPR, 2275-4 #### [facility] ([id number]) [address] [place] [address] WBC (Bld) [#/Vol] 6.1 10*3/uL Normal 4.0-11.0 [facility] Comment on above: Performed By: #### C BCA, FEPR, 2276-4 #### [facility] ([id number]) [address] [place] [address] FERRITINon 02-17-2024 Ferritin [Mass/Vol] 50 ng/mL Normal 11-307 [facility] Comment on above: Performed By: #### C BCA, FEPR, 6-4 #### [facility] ([id number]) [address] [place] [address] IRON PROFILEon 02-17-2024 Iron [Mass/Vol] 59 ug/dL Normal 50-170 [facility] Comment on above: Performed By: #### C BCA, FEPR, 2276-4 #### [facility] ([id number]) [address] [place] [address] IRON BINDING 384 ug/dL Normal 250-425 [facility] Comment on above: Performed By: #### C BCA, FEPR, 2276-4 #### [facility] ([id number]) [address] [place] [address] IRON SATURATION 15 % SATURATION Normal 15-50 [facility] Comment on above: Performed By: #### C BCA, FEPR, 2276-4 #### [facility] ([id number]) [address] [place] [address] HCG ( test) Ql (U)o n 01-19-2024 Beta HCG ( test) Ql (U) Negative Normal NEG [facility] Comment on above: Performed By: #### 2 106-3 #### [facility] ([id number]) [address] [place] [address] [place] [address] URN MACROSCOPIC NURon 2023 BILIRUBIN SUDHIR Negative Normal NEG [facility] Comment on above: Performed By: #### N UM #### [facility] ([id number]) [address] [place] [address] [place] [address] BLOOD/HGB SUDHIR Trace Abnormal NEG [facility] Comment on above: Performed By: #### N UM #### [facility] ([id number]) [address] [place] [address] [place] [address] GLUCOSE SUDHIR Negative Normal NEG [facility] Comment on above: Performed By: #### N UM #### [facility] ([id number]) [address] [place] [address] [place] [address] KETONES SUDHIR Negative Normal NEG [facility] Comment on above: Performed By: #### N UM #### [facility] ([id number]) [address] [place] [address] [place] [address] LEUKOCYTE ESTERASE SUDHIR Negative Normal NEG [facility] Comment on above: Performed By: #### N UM #### [facility] ([id number]) [address] [place] [address] [place] [address] NITRITE SUDHIR Negative Normal NEG [facility] Comment on above: Performed By: #### N UM #### [facility] ([id number]) [address] [place] [address] [place] [address] PH SUDHIR 6.0 Normal 5.0-8.5 [facility] Comment on above: Performed By: #### N UM #### [facility] ([id number]) [address] [place] [address] [place] [address] PROTEIN SUDHIR Negative Normal NEG [facility] Comment on above: Performed By: #### N UM #### [facility] ([id number]) [address] [place] [address], [place] [address] SPECIFIC GRAVITY SUDHIR >=1.030 Normal 1.003-1.035 [facility] Comment on above: Performed By: #### N UM #### [facility] ([id number]) [address] [place] [address] UROBILINOGEN SUDHIR 0.2 eu/dL Normal <1.1 [facility] Comment on above: Performed By: #### N UM #### [facility] ([id number]) [address] [place] [address] [facility] PREG QUANT HCGon 024 HCG QUANTITATIVE <1 mIU/mL [facility] Comment on above: 5-50 0.2-1 WEEK 50-500 1-2 WEEKS 100-5,000 2-3 WEEKS 500-10,000 3-4 WEEKS 1,000-50,000 4-5 WEEKS 10,000-100,000 5-6 WEEKS 15,000-200,000 6-8 WEEKS 10,000-100,000 2-3 MONTHS [facility] CBC AUTO DIFFon 01-19-2023 BASO # 0.1 103/ul Normal 0.0-0.1 [facility] Comment on above: Performed By: #### C BC #### [facility] [address] [place] [address] Dr. Kristie Marrero Basophils/100 WBC (Bld) 0.5 % Normal 0.2-2.0 [facility] Comment on above: Performed By: #### C BC #### [facility] [address] [place] [address] Dr. Kristie Marrero EO # 0.2 103/ul Normal 0.0-0.7 [facility] Comment on above: Performed By: #### C BC #### [facility] [address] [address] [address] Kristie Marrero Eosinophils/100 WBC (Bld) 2.0 % Normal 0.9-7.0 [facility] Comment on above: Performed By: #### C BC #### [facility] [address] [place] [address] Dr. Kristie Marrero Erythrocyte distribution width (RBC) [Ratio] 12.0 % Normal 11.0-15.0 [facility] Comment on above: Performed By: #### C BC #### [facility] [address] [place] [address] Dr. Kristie Marrero Hematocrit (Bld) [Volume fraction] 38.0 % Normal 36.0-48.0 [facility] Comment on above: Performed By: #### C BC #### [facility] [address] [place] [address] Dr. Kristie Marrero Hemoglobin (Bld) [Mass/Vol] 13.3 g/dL Normal 12.0-16.0 [facility] Comment on above: Performed By: #### C BC #### [facility] [address] [place] [address] Dr. Kristie Marrero IG # 0.04 10e3/ul Critically high 0.00-0.03 [facility] Comment on above: Performed By: #### C BC #### [facility] [address] [place] [address] Dr. Kristie Marrero IG % 0.4 % Normal 0.0-0.5 [facility] Comment on above: Performed By: #### C BC #### [facility] [address] [place] [address] Dr. Kristie Marrero LYMPH # 1.3 103/ul Normal 1.2-3.8 [facility] Comment on above: Performed By: #### C BC #### [facility] [address] [place] [address] Dr. Kristie Marrero Lymphocytes/100 WBC (Bld) 12.3 % Critically low 20.5-60.0 [facility] Comment on above: Performed By: #### C BC #### [facility] [address] [place] [address] Dr. Kristie Marrero MANUAL DIFF REQ NO Normal [facility] Comment on above: Performed By: #### C BC #### [facility] [address] [place] [address] Dr. Kristie Marrero MCH (RBC) [Entitic mass] 29.2 pg Normal 26.7-34.0 [facility] Comment on above: Performed By: #### C BC #### [facility] [address] [place] [address] Dr. Kristie Marrero MCHC (RBC) [Mass/Vol] 35.0 g/dL Normal 29.9-35.2 [facility] Comment on above: Performed By: #### C BC #### [facility] [address] [place] [address] Dr. Kristie Marrero MCV (RBC) [Entitic vol] 83.3 fL Normal 81.0-99.0 [facility] Comment on above: Performed By: #### C BC #### [facility] [address] [place] [address] Dr. Kristie Marrero MONO # 0.7 103/ul Normal 0.3-0.8 [facility] Comment on above: Performed By: #### C BC #### [facility] [address] [place] [address] Dr. Kristie Marrero Monocytes/100 WBC (Bld) 7.0 % Normal 1.7-12.0 [facility] Comment on above: Performed By: #### C BC #### [facility] [address] [place] [address] Dr. Kristie Marrero NEUT # 8.2 103/ul Critically high 1.4-6.5 [facility] Comment on above: Performed By: #### C BC #### [facility] [address] [place] [address] Dr. Kristie Marrero Neutrophils/100 WBC (Bld) 77.8 % Critically high 43.0-75.0 [facility] Comment on above: Performed By: #### C BC #### [facility] [address] [place] [address] Dr. Kristie Marrero Platelet mean volume (Bld) [Entitic vol] 9.5 fL Normal 9.5-13.5 [facility] Comment on above: Performed By: #### C BC #### [facility] [address] [place] [address] Dr. Kristie Marrero PLT 265 103/ul Normal 150-450 [facility] Comment on above: Performed By: #### C BC #### [facility] [address] [place] [address] Dr. Kristie Marrero RBC 4.56 106/ul Normal 4.20-5.40 [facility] Comment on above: Performed By: #### C BC #### [facility] [address] [place] [address] Dr. Kristie Marrero WBC 10.5 103/ul Normal 4.0-11.0 [facility] Comment on above: Performed By: #### C BC #### [facility] [address] [place] [address] Dr. Kristie Marrero PREG HCG QUALon 01-19-2023 , QUAL Negative Normal NEGATIVE [facility] Comment on above: Performed By: #### P REG #### [facility] [address] [place] [address] Dr. Kristie Marrero CHLAMYDIA/GONOCOCCUS RADAH ( AB/URINE/PAPon 11-19-2022 Chlamydia trachomatis, RADHA Negative Normal Negative [facility] Comment on above: Performed By: #### C T/NGNA #### [facility] [address] [place] [address] Dr. Kristie Marrero Neisseria gonorrhoeae, RADHA Negative Normal Negative [facility] Comment on above: Performed By: #### C T/NGNA #### [facility] [address] [place] [address] Dr. Kristie Marrero VAGINITIS/VAGINOSIS DNA PROB Syed 11-18-2022 Jenny species Negative Normal Negative [facility] Comment on above: Performed By: #### V AGINT #### [facility] [address] [place] [address] Dr. Kristie Marrero Gardnerella vaginalis Positive Abnormal Negative [facility] Comment on above: Performed By: #### V AGINT #### [facility] [address] [place] [address] Dr. Kristie Marrero Trichomonas vaginalis Negative Normal Negative [facility] Comment on above: Performed By: #### V AGINT #### [facility] [address] [place], [place] [address] Dr. Kristie Marrero [facility]10 SARS-CoV-2 (COVID-19) RNA RADHA+probe Ql (Unsp spec) Detected Critically abnormal NOT DETECTED [facility] Comment on above: Result Comment: This test is not yet approved or cleared by the [place] FDA. When there are no FDA-approved or cleared tests available, and other criteria are met, FDA can make tests available under an emergency access mechanism called an Emergency Use Authorization (EUA). The EUA for this test is supported by the [place] of Health and Human Service's (HHS's) declaration [...] used). Performed By: #### C VDTBH #### [facility] [id number] Kristie Marrero Vital Signs Date Time Vital Sign Value Performing Clinician Facility 12-20-2023 15:22040 Body height 170.2 cm Summer LOPEZ Work Phone: [facility] 12-20-2023 15:22-040 Body mass index (BMI) [Ratio] 38.28 kg/m2 Summer LOPEZ Work Phone: [facility] 12-20-2023 15:22-040 Body temperature 98.29 [degF] Summer LOPEZ Work Phone: [facility] 12-20-2023 15:22-0400 Body weight 110.86 kg Summer Davalos APRN-HARPER Work Phone: [facility] 12-20-2023 15:22-0400 Diastolic blood pressure 80 mm[Hg] Summer Kuns CUTTING MACHINE TENDER-CREDENTIALING MANAGER [facility] 12-20-2023 15:22-0400 Heart rate 82 /min Summer Davalos CUTTING MACHINE TENDER-CREDENTIALING MANAGER Work Phone: [facility] 12-20-2023 15:22-0400 Respiratory rate 18 /min Summer Davalos CUTTING MACHINE TENDER-CREDENTIALING MANAGER Work Phone: [facility] 12-20-2023 15:22-0400 SaO2% (BldA) [Mass fraction] 97 % Summer Davalos CUTTING MACHINE TENDER-CREDENTIALING MANAGER Work Phone: [facility] 12-20-2023 15:22-0400 Systolic blood pressure 100 mm[Hg] Summer Davalos CUTTING MACHINE TENDER-CREDENTIALING MANAGER Work Phone: [facility] Encounters Encounter Date Encounter Type Care Provider Facility Start: 02-17-2024 End: 02-18-2024 ambulatory [facility] Start: 02-17-2024 End: 02-17-2024 ambulatory [facility] Start: 02-15-2024 End: 02-15-2024 ambulatory CARMEN ABBASI Not Available Start: 02-07-2024 End: 02-07-2024 ambulatory MADELEINE PRETTY Not Available Start: 01-19-2024 End: 01-19-2024 Emergency department patient visit [facility] Start: 12-20-2023 End: 12-20-2023 ambulatory [facility] Start: 12-20-2023 End: 12-20-2023 Office outpatient visit 15 minutes Summer Davalos CUTTING MACHINE TENDER-CREDENTIALING MANAGER Work Phone: [facility] - Family [...] Adult depression scr eening assessment Summer Davalos CUTTING MACHINE TENDER-CREDENTIALING MANAGER Work Phone: Start: 11-21-2023 [facility] PREG QUANT HCG Core y Ayleen DO Work Phone: Start: 11-16-2022 Microscopic observat ion [Identifier] in Cervix by Cyto stain Summer Davalos CUTTING MACHINE TENDER-CREDENTIALING MANAGER Work Phone: Plan of Treatment Date Care Activity Detail Author Start: 11-13-2029 DTaP,Tdap and Td Vaccines (7 - Td or Tdap) DTaP,Tdap and Td Vaccines (7 - Td or Tdap) [facility] Start: 11-16-2025 Screening for malign ant neoplasm of cervix Pap Smear [facility] Start: 12-19-2024 Adult BMI Screening Adult BMI Screen ing [facility] Start: 12-19-2024 Depression Screening Depression Scre ening [facility] Start: 12-19-2024 Tobacco Screening Tobacco Screening [facility] Start: 09-14-2024 Adult BMI Follow Up Plan Adult BMI Follow Up Plan [facility] Start: 06-10-2023 Influenza vaccination Influenza Vacc ine (#1) [facility] Immunizations Immunization Date Immunization Notes Care Provider Fa cility 11-13-2019 tetanus toxoid, redu clifford diphtheria toxoid, and acellular pertussis vaccine, adsorbed Summer Davalos CUTTING MACHINE TENDER-CREDENTIALING MANAGER Work Phone: [facility] 01-22-2014 diphtheria, tetanus toxoids and acellular pertussis vaccine, unspecified formulation Summer Davalos CUTTING MACHINE TENDER-CREDENTIALING MANAGER Work Phone: [facility] 06-22-2004 diphtheria, tetanus toxoids and acellular pertussis vaccine Summer Davalos CUTTING MACHINE TENDER-CREDENTIALING MANAGER Work Phone: [facility] 06-22-2004 haemophilus influenz ae type b vaccine, PRP-T conjugate Summer Davalos CUTTING MACHINE TENDER-CREDENTIALING MANAGER Work Phone: [facility] 06-22-2004 pneumococcal conjuga te vaccine, 7 valent Summer Davalos CUTTING MACHINE TENDER-CREDENTIALING MANAGER Work Phone: [facility] 12-20-2003 DTaP-hepatitis B and poliovirus vaccine Summer Davalos CUTTING MACHINE TENDER-CREDENTIALING MANAGER Work Phone: [facility] 12-20-2003 haemophilus influenz ae type b vaccine, PRP-T conjugate Summer Davalos CUTTING MACHINE TENDER-CREDENTIALING MANAGER Work Phone: [facility] 12-20-2003 measles, mumps and rubella virus vaccine Summer Davalos CUTTING MACHINE TENDER-CREDENTIALING MANAGER Work Phone: [facility] 12-20-2003 varicella virus vaccine Summer Davalos CUTTING MACHINE TENDER-CREDENTIALING MANAGER Work Phone: [facility] 11-11-2003 DTaP-hepatitis B and poliovirus vaccine Summer Davalos CUTTING MACHINE TENDER-CREDENTIALING MANAGER Work Phone: [facility] 11-11-2003 haemophilus influenz ae type b vaccine, PRP-T conjugate Summer Davalos CUTTING MACHINE TENDER-CREDENTIALING MANAGER Work Phone: [facility] 11-11-2003 pneumococcal conjuga te vaccine, 7 valent Summer Davalos CUTTING MACHINE TENDER-CREDENTIALING MANAGER Work Phone: [facility] 05-31-2003 DTaP-hepatitis B and poliovirus vaccine Summer Davalos CUTTING MACHINE TENDER-CREDENTIALING MANAGER Work Phone: [facility] 05-31-2003 haemophilus influenz ae type b vaccine, PRP-T conjugate Summer Davalos CUTTING MACHINE TENDER-CREDENTIALING MANAGER Work Phone: [facility] 05-31-2003 pneumococcal conjuga te vaccine, 7 valent Summer Davalos CUTTING MACHINE TENDER-CREDENTIALING MANAGER Work Phone: [facility] 2002 hepatitis B vaccine, pediatric or pediatric/adolescent dosage Summer Davalos CUTTING MACHINE TENDER-CREDENTIALING MANAGER Work Phone: [facility] Payers Date Payer Category Payer Medicaid [id number] 2002 Unknown [id number] 2.16.8 [id number] 2002 Unknown [id number] 2.16.84 [id number] 2002 Unknown [id number] 2.16.84 [id number] 2002 Unknown [id number] 2.16.8 [id number] 2002 Unknown [id number] 2.16.8 [id number] 2002 Unknown [id number] 2.16.8 [id number] 1982 Unknown [id number] 2.16.84 [id number] 1982 Unknown [id number] 2.16.84 [id number] 1982 Unknown [id number] 2.16.84 [id number] 1959 Unknown [id number] 1959 Unknown [id number] Social History Date Type Detail Facility Start: 05-19-2023 Tobacco smoking stat [facility] Tobacco smoking consumption unknown [facility] Start: 05-19-2023 Tobacco use and exposure User of smokeless tobacco [facility] Start: 11-18-2023 End: 12-20-2023 Alcohol intake Lifetime non-drinker (finding) [facility] Start: 11-11-2020 End: 05-19-2023 History of Social function [facility] Start: 11-11-2020 End: 05-19-2023 Tobacco use panel [facility] Start: 2002 Sex Assigned At Not on file [facility] Start: 01-15-2023 Tobacco smoking stat RUSTIS Never smoked tobacco [facility] Start: 01-15-2023 Tobacco use and exposure Smokeless tobacco non-user [facility] Frequency of Alcohol Consumption Never [facility] History of Present illness Narrative 12-20-2023 Summer Davalos, CUTTING MACHINE TENDER-CREDENTIALING MANAGER - 12/20/2023 3:20 PM EDT Note Date & Type Note Facility 12-20-2023 History of Present illness Narrative Subjective Patient ID: sAh Martinez is a 23 y.o. female. She [...] in adult She has her contraception and order booker care thru Dr Abbasi, she should continue [...] eat right as well JOHN Thrasher 12/20/23 [id number] documented in this encounter [facility] Evaluation note Note Date & Type Note Facility Evaluation note Diagnosis PTSD (post-traumatic stress disorder)- Primary Posttraumatic stress disorder General counseling and advice for contraceptive management Class 2 obesity due to excess calories without serious comorbidity with body mass index (BMI) of 37.0 to 37.9 in adult documented in this encounter [facility] Instructions Note Date & Type Note Facility Instructions Not on filedocumented in this en counter [facility] Reason for referral (narrative) Consultation (Routine) - Pending Review Note Date & Type Note Facility Reason for referral (narrati ve) Specialty Diagnoses / Procedures Referred By Vinny stoddard Referred To Contact Diagnoses PTSD (post-traumatic stress disorder) Summer Davalos APRN-FNP [address] [place] [address] Referral ID Status Reason Start Date Expiration Date Visits Requested Visits Authorized [id number] Pending Review Patient Preference 12/20/2023 12/19/2024 1 1 [facility] Summary Purpose Family History [...] and content) DATE CREATED AUTHOR 01/27/[address] [facility] DATE CREATED AUTHOR AUTHOR'S ORGANIZ ATION 01/20/2024 [facility] DATE CREATED AUTHOR AUTHOR'S ORGANIZ ATION 02/17/2024 [facility] EPIC DATE CREATED AUTHOR AUTHOR'S ORGANIZ ATION 02/19/2024 [facility] DATE CREATED AUTHOR AUTHOR'S ORGANIZ ATION 02/20/2024 [facility] Care Teams (unrecognized sec tion and content) Global Marketing Operations Manager Relationship Specialty Start Date End Date Reid Jasmine MD PCP - General Family Medicine 08/01/23 Global Marketing Operations Manager Relationship Specialty Start Date End Date Summer Davalos, CUTTING MACHINE TENDER-CREDENTIALING MANAGER [address] [place] [address] PCP - General Internal Medicine 09/14/23 Reason [...] BE BASED ON THE PRIMARY CLINICAL RECORDS. [employer] provides no warranty or guarantee of the accuracy or completeness of information in this document.
[2024-04-09 11:09] LABS: Basophils Absolute Auto 0.1 10^3/uL (0.0-0.1); Basophils Percent Auto 0.9 % (0.2-2.0); Eosinophils Absolute Auto 0.1 10^3/uL (0.0-0.7); Hemoglobin 12.7 g/dL (12.0-16.0); Immature Granulocytes Abs Auto 0.02 10^3/uL (0.00-0.03); Immature Granulocytes Pct Auto 0.3 % (0.0-0.5); Lymphocytes Absolute Auto 1.4 10^3/uL (1.2-3.8); Lymphocytes Percent Auto 20.4 % (20.5-60.0); Mean Corpuscular HGB Conc 34.3 g/dL (29.9-35.2); Mean Corpuscular Hemoglobin 28.4 pg (26.7-34.0); Mean Corpuscular Volume 82.8 fL (81.0-99.0); Monocytes Absolute Auto 0.7 10^3/uL (0.3-0.8); Monocytes Percent Auto 9.7 % (1.7-12.0); Neutrophils Absolute Auto 4.6 10^3/uL (1.4-6.5); Neutrophils Percent Auto 67.7 % (43.0-75.0); Platelet Count 215 10^3/uL (150-450); Red Blood Count 4.47 10^6/uL (4.20-5.40); Red Cell Distribution Width 12.3 % (11.0-15.0); White Blood Count 6.8 10^3/uL (4.0-11.0)
--- NOTE | 2024-04-09 11:20 | ECG_ITS ---
[facility] Test Date: 2024-04-09 Pat Name: FATOUMATA VIEYRA Department: Room: - Gender: Female Manager Construction: : 2000 Requested By: Summer Davalos Order Number: [id number] Reading MD: BELLO MILLS Measurements Intervals [place] Rate: 67 P: 43 AL: 156 QRS: 64 QRSD: 88 T: 38 QT: 366 QTc: 381 Interpretive Statements 1100 Sinus rhythm 9110 normal ECG No previous ECG available for comparison Electronically Signed On 04-09-2024 22:17:14 EDT by BELLO MILLS
[2024-04-09 11:28] LABS: Alanine Aminotransferase 29 U/L (14-59); Albumin Globulin Ratio 0.9; Albumin Level 3.6 g/dL (3.4-5.0); Alkaline Phosphatase 54 U/L (46-116); Amylase 35 U/L (25-115); Anion Gap 16.6; Aspartate Amino Transferase 16 U/L (15-37); BUN Creatinine Ratio 9.9; Bilirubin Direct 0.1 mg/dL (0.0-0.2); Bilirubin Total 0.5 mg/dL (0.2-1.0); Calcium 9.2 mg/dL (8.5-10.1); Chloride 102 mmol/L (98-107); Estimated GFR (African America >60 (>=60); Estimated GFR (Non-African Ame >60 (>=60); Glucose 99 mg/dL (74-106); Potassium 3.6 mmol/L (3.5-5.1); Sodium 138 mmol/L (136-145); Total Protein 7.6 g/dL (6.4-8.2)
--- NOTE | 2024-04-09 11:38 | ED.GENADUL1 ---
HPI HPI - General Adult General Chief complaint: Chest Pain Stated complaint: CHEST/ABDOMINAL PAIN Time Seen by Provider: 04/09/24 10:38 Source: patient Mode of arrival: walk-in Limitations: no limitations History of Present Illness HPI narrative: 23-year-old female presents for epigastric pain. She states she is , about 4 to 5 weeks. She states she had a miscarriage in February and then got right afterwards. No vaginal bleeding or lower abdominal pain. It does not seem to go into her chest and she has no fever cough or shortness of breath. She has not taken any medication for her and she has had it for the last day or 2. Related Data Home Medications ?Medication ?Instructions ?Recorded ?Confirmed No Known Home Medications 02/12/24 03/10/24 Allergies Allergy/AdvReac Type Severity Reaction Status Date / Time ondansetron [From Zofran] Allergy Mild Rash Verified 04/09/24 10:39 Opioid HPI Opioid Management Most Recent Opioid Data: Last Pain Scale 9 04/09/24 11:15 Last ED Pain Assessment 04/09/24 11:15 Review of Systems ROS Narrative A ten point review of systems is negative except as noted above. Exam Narrative Exam Narrative: Nurses note and vital signs reviewed and patient is not hypoxic. General: The patient appears well and in no apparent distress. Patient is resting comfortably on cart. Skin: Warm, dry, no pallor noted. There is no rash noted. Head: Normocephalic, atraumatic Eye: Normal conjunctiva, no drainage Ears, Nose, Mouth, and Throat: oral mucosa is moist. Nares patent. Cardiovascular: Regular Rate and Rhythm Respiratory: Patient is in no distress, no accessory muscle use, lungs are clear to auscultation, no wheezing, rales or rhonchi Back: non-tender GI: Normal bowel sounds, minimal tenderness to palpation only in the epigastric area. No lower abdominal tenderness Musculoskeletal: The patient has no evidence of calf tenderness, no pitting edema, symmetrical pulses noted bilaterally Neurological: A&O, normal speech Psychiatric: Cooperative Constitutional Vital Signs, click to edit/add: Last Vital Signs Temp 97.4 F L 04/09/24 10:40 Pulse 99 H 04/09/24 10:40 Resp 16 04/09/24 10:40 BP 126/90 04/09/24 10:40 Pulse Ox 100 04/09/24 10:40 O2 Del Method Room Air 04/09/24 10:40 Course Vital Signs Vital signs: Vital Signs Temperature 97.4 F L 04/09/24 10:40 Pulse Rate 99 H 04/09/24 10:40 Respiratory Rate 16 04/09/24 10:40 Blood Pressure 126/90 04/09/24 10:40 Pulse Oximetry 100 04/09/24 10:40 Oxygen Delivery Method Room Air 04/09/24 10:40 Temperature 97.4 F L 04/09/24 10:40 Pulse Rate 99 H 04/09/24 10:40 Respiratory Rate 16 04/09/24 10:40 Blood Pressure 126/90 04/09/24 10:40 Pulse Oximetry 100 04/09/24 10:40 Oxygen Delivery Method Room Air 04/09/24 10:40 Medical Decision Making MDM Narrative Medical decision making narrative: The patient was given a GI cocktail and feels much better now, her symptoms have resolved. Workup including LFTs and amylase and lipase is negative as well. Treatment diagnosis and follow-up were discussed with the patient and she was recommended Maalox if it recurs. Differential Diagnosis Differential Diagnosis: GE reflux, pancreatitis, hepatitis, gastritis Lab Data Lab results reviewed: Yes I reviewed the patient's lab results Labs: Lab Results 04/09/24 Range/Units 10:59 WBC 6.8 (4.0-11.0) 10^3/uL RBC 4.47 (4.20-5.40) 10^6/uL Hgb 12.7 (12.0-16.0) g/dL Hct 37.0 (36.0-48.0) % MCV 82.8 (81.0-99.0) fL MCH 28.4 (26.7-34.0) pg MCHC 34.3 (29.9-35.2) g/dL RDW 12.3 (11.0-15.0) % Plt Count 215 (150-450) 10^3/uL MPV 10.0 (9.5-13.5) fL Neut % (Auto) 67.7 (43.0-75.0) % Lymph % (Auto) 20.4 L (20.5-60.0) % Esmeralda % (Auto) 9.7 (1.7-12.0) % Eos % (Auto) 1.0 (0.9-7.0) % Baso % (Auto) 0.9 (0.2-2.0) % Neut # (Auto) 4.6 (1.4-6.5) 10^3/uL Lymph # (Auto) 1.4 (1.2-3.8) 10^3/uL Esmeralda # (Auto) 0.7 (0.3-0.8) 10^3/uL Eos # (Auto) 0.1 (0.0-0.7) 10^3/uL Baso # (Auto) 0.1 (0.0-0.1) 10^3/uL Abs Immat Gran (auto) 0.02 (0.00-0.03) 10^3/uL Imm/Tot Granulo (auto) 0.3 (0.0-0.5) % Sodium 138 (136-145) mmol/L Potassium 3.6 (3.5-5.1) mmol/L Chloride 102 (98-107) mmol/L Carbon Dioxide 23.0 (21.0-32.0) mmol/L Anion Gap 16.6 BUN 7.0 (7.0-18.0) mg/dL Creatinine 0.71 (0.55-1.02) mg/dL Est GFR ( Amer) >60 (>=60) Est GFR (Non-Af Amer) >60 (>=60) BUN/Creatinine Ratio 9.9 Glucose 99 (74-106) mg/dL Calcium 9.2 (8.5-10.1) mg/dL Total Bilirubin 0.5 (0.2-1.0) mg/dL Direct Bilirubin 0.1 (0.0-0.2) mg/dL AST 16 (15-37) U/L ALT 29 (14-59) U/L Alkaline Phosphatase 54 (46-116) U/L Total Protein 7.6 (6.4-8.2) g/dL Albumin 3.6 (3.4-5.0) g/dL Globulin 4.0 g/dL Albumin/Globulin Ratio 0.9 Amylase 35 (25-115) U/L Lipase 26.0 (16.0-77.0) U/L ECG Data Attestation: I personally reviewed and interpreted this ECG as follows: (EKG on my interpretation shows normal sinus rhythm without acute change and rate of 67.) Discharge Plan Discharge Stand Alone Forms: Portal Instructions Chief Complaint: Chest Pain Clinical Impression: Epigastric pain Patient Disposition: Home, Self-Care Time of Disposition Decision: 11:42 Condition: Good Mode of Transportation: Private Vehicle Prescriptions / Home Meds: No Action No Known Home Medications Print Language: Upper Sorbian Instructions: Epigastric Pain (ED) Referrals: ELISA MARES [Primary Care Provider] - 1 week
[2024-04-09 11:48] VITALS: BP 107/74; PULSE 69; O2SAT 99
== END 2024-04-09 11:50 | disposition home or self-care (01) ==
PROVIDERS: Emergency Provider Emergency Medicine; PCP Nurse Practitioner Family
DX: O26.891 Other specified pregnancy related conditions, first trimester (principal); R10.13 Epigastric pain; Z3A.01 Less than 8 weeks gestation of pregnancy
CPT/HCPCS: 36415; 80048; 80076; 82150; 83690; 85025; 93005; 99284

== ENCOUNTER 2024-04-11 09:50 | Outpatient (RCR) | payer OTHER, SELFPAY ==
[2024-04-11 12:32] LABS: HCG Quantitative 121290 mIU/mL
[2024-04-18 08:45] LABS: HCG Quantitative 101145 mIU/mL
[2024-04-25 09:29] LABS: HCG Quantitative 63134 mIU/mL
[2024-05-02 09:19] LABS: HCG Quantitative 51035 mIU/mL
[2024-05-09 12:59] LABS: HCG Quantitative 47209 mIU/mL
== END 2024-05-09 08:25 | disposition home or self-care (01) ==
LOC: LAB 09:50
PROVIDERS: PCP Nurse Practitioner Family; Visit Provider Obstetrics & Gynecology
DX: N92.6 Irregular menstruation, unspecified (principal); Z87.59 Personal history of other complications of pregnancy, childbirth and the puerperium
CPT/HCPCS: 36415; 84702

== ENCOUNTER 2024-04-18 09:54 | Outpatient (OUT) | payer OTHER, SELFPAY ==
--- NOTE | 2024-04-18 10:00 | US_ITS ---
[address] [address] Patient Name: FATOUMATA VIEYRA MRN: [id number] date: 2000 Sex: F Assigned Patient Location: [facility] Current Patient Location: [facility] Accession/Order Number: [id number] Exam Date: 04/18/2024 10:00 Report Date: 04/18/2024 10:56 At the request of: CARMEN CHENEY Procedure: US OB transvaginal EXAMINATION: US OB transvaginal HISTORY: VIABILITY COMPARISON: No relevant comparison available. FINDINGS: Transvaginal images Garg intrauterine gestation Gestational sac: Normal morphology, 3.36 cm, 8 weeks 3 days CRL: 2.4 cm, 9 weeks 4 days Yolk sac: 4.7 mm Heart rate: 175 bpm Uterus is normal, anteverted, anteflexed The right ovary is normal measuring 2.6 x 1.8 x 3.1 cm. The left ovary measures 5.3 x 4.5 x 4.0 cm, corpus luteal cyst. Cervix is closed measuring 4.7 cm Clinical age: Unknown Ultrasound age: 9 weeks 4 days Ultrasound MYESHA: 11/17/2024 US/US OB transvaginal IMPRESSION: Viable garg intrauterine gestation measuring 9 weeks 4 days Electronically authenticated by: MARQUES RAMIREZ Date: 04/18/2024 10:56
== END 2024-04-18 09:55 | disposition home or self-care (01) ==
LOC: NOMS 09:54
PROVIDERS: PCP Nurse Practitioner Family; Visit Provider Obstetrics & Gynecology
DX: O09.291 Supervision of pregnancy with other poor reproductive or obstetric history, first trimester (principal); Z3A.09 9 weeks gestation of pregnancy
CPT/HCPCS: 76817

== ENCOUNTER 2024-05-11 08:28 | Outpatient (OUT) | payer OTHER, SELFPAY ==
--- NOTE | 2024-05-11 08:31 | US_ITS ---
[address] [address] Patient Name: FATOUMATA VIEYRA MRN: [id number] date: 2000 Sex: F Assigned Patient Location: [facility] Current Patient Location: LAB Accession/Order Number: [id number] Exam Date: 05/11/2024 08:31 Report Date: 05/11/2024 09:50 At the request of: CARMEN CHENEY Procedure: US OB transvaginal EXAMINATION: US OB transvaginal HISTORY: MISSED MENSES COMPARISON: Ultrasound OB transvaginal 04/18/2024 FINDINGS: GESTATIONAL SAC: Present and normal appearing. YOLK SAC: Absent. POLE: Present and normal appearing. CARDIAC: Present. UTERUS: Normal size and appearance. OVARIES: Right: Not seen. Left: Not seen. CERVIX: 4.7 cm in length and closed. CUL-DE-SAC: Normal. OTHER: None. AGE BY LMP: Unknown LMP MYESHA BY LMP: AGE BY US CRL: 13 weeks 0 days MYESHA BY US CRL: 11/16/2024 US/US OB transvaginal IMPRESSION: 1. Single live intrauterine . Electronically authenticated by: ARSEN FONG Date: 05/11/2024 09:50
--- OUTSIDE RECORDS SUMMARY | 2024-05-11 08:32 | XMS_ITS | CCD ---
Author Organization [facility] Care Team Providers Care Director Of User Experience Name Role Phone BOYDC, DR BEAN Primary [...] PAY ., DR TARANGO Admitting Unavailable Reid Jamsine MD Primary Care Provider Kunemma CONTINUOUS IMPROVEMENT MANAGER-CREDIT FRONT OFFICE DEVELOPER, Summer Machado Primary Care Provider SUMMER DAVALOS [...] Facility (1 source) Ondansetron Drug Allergy [facility] Repository (1 source) Ondansetron Drug Allergy 08-01-2023 Rash [facility] Work Phone: (4 sources) Ondansetron; Translations: [ONDANSETRON HCL] Drug Allergy 12-11-2022 Critical access hospital Medications Current Medications Medication Drug Class(es) Dates [...] 24 ABSOLUTE BASOPHIL 0.2 X10E9/L Normal 0.0-0.2 [facility] Comment on above: Performed By: #### C AFTAB FEPR, 2276-01 #### [facility] ([id number]) [address], [address] [place] [address] ABSOLUTE NEUTROPHIL 3.1 X10E9/L Normal 1.5-6.6 [facility] Comment on above: Performed By: #### C AFTAB, FEPR, 2276-01 #### [facility] ([id number]) [address], [address] [place] [address] Basophils/100 WBC (Bld) 3.0 % Normal [facility] Comment on above: Performed By: #### C AFTAB FEPR, 2276-01 #### [facility] ([id number]) [address], [address] [place] [address] Eosinophils (Bld) [#/Vol] 0.2 10*3/uL Normal 0.0-0.4 [facility] Comment on above: Performed By: #### C AFTAB, FEPR, 2276-01 #### [facility] ([id number]) [address], [address] [place] [address] Eosinophils/100 WBC (Bld) 3.4 % Normal [facility] Comment on above: Performed By: #### C AFTAB FEPR, 2276-01 #### [facility] ([id number]) [address], [address] [place] [address] Erythrocyte distribution width (RBC) [Ratio] 13.3 % Normal 11.5-15.0 [facility] Comment on above: Performed By: #### Terri UGALDE, FEPR, 2276-01 #### [facility] ([id number]) [address], [address] [place] [address] Hematocrit (Bld) [Volume fraction] 40.3 % Normal 35-47 [facility] Comment on above: Performed By: #### C AFTAB, FEPR, 4 #### [facility] ([id number]) [address] [place] [address] Hemoglobin (Bld) [Mass/Vol] 13.8 g/dL Normal 11.7-15.5 [facility] Comment on above: Performed By: #### C AFTAB, FEPR, 2275- #### [facility] ([id number]) [address], [address] [place] [address] Lymphocytes (Bld) [#/Vol] 2.1 10*3/uL Normal 1.0-3.5 [facility] Comment on above: Performed By: #### C AFTAB, FEPR, 2276-01 #### [facility] ([id number]) [address], [address] [place] [address] Lymphocytes/100 WBC (Bld) 35.1 % Normal [facility] Comment on above: Performed By: #### Terri UGALDE, FEPR, 2276-01 #### [facility] ([id number]) [address], [address] [place] [address] MCH (RBC) [Entitic mass] 29.0 pg Normal 27-34 [facility] Comment on above: Performed By: #### C AFTAB, FEPR, 2275- #### [facility] ([id number]) [address], [address] [place] [address] MCHC (RBC) [Mass/Vol] 34.2 g/dL Normal 32-36 [facility] Comment on above: Performed By: #### C BCA, FEPR, 2276-01 #### [facility] ([id number]) [address], [address] [place] [address] MCV (RBC) [Entitic vol] 85 fL Normal 80-100 [facility] Comment on above: Performed By: #### C AFTAB, FEPR, 2276-01 #### [facility] ([id number]) [address], [address] [place] [address] Monocytes (Bld) [#/Vol] 0.5 10*3/uL Normal 0-0.9 [facility] Comment on above: Performed By: #### C BCA, FEPR, 2275-4 #### [facility] ([id number]) [address], [address] [place] [address] Monocytes/100 WBC (Bld) 7.5 % Normal [facility] Comment on above: Performed By: #### Terri UGALDE, FEPR, 2276-01 #### [facility] ([id number]) [address] [place] [address] Neutrophils/100 WBC (Bld) 51.0 % Normal [facility] Comment on above: Performed By: #### Terri BCA, FEPR, 2276-01 #### [facility] ([id number]) [address] [place] [address] Platelet mean volume (Bld) [Entitic vol] 8.8 fL Normal 7-12 [facility] Comment on above: Performed By: #### Terri BCA, FEPR, 2276-01 #### [facility] ([id number]) [address], [address] [place] [address] Platelets (Bld) [#/Vol] 272 10*3/uL Normal 150-450 [facility] Comment on above: Performed By: #### Terri BCA, FEPR, 2275-4 #### [facility] ([id number]) [address], [address] [place] [address] RBC COUNT 4.75 X10E12/L Normal 3.80-5.20 [facility] Comment on above: Performed By: #### Terri BCA, FEPR, 2275-4 #### [facility] ([id number]) [address], [address] [place] [address] WBC (Bld) [#/Vol] 6.1 10*3/uL Normal 4.0-11.0 [facility] Comment on above: Performed By: #### C BCA, FEPR, 2276-4 #### [facility] ([id number]) [address], [address] [place] [address] FERRITINon 02-17-2024 Ferritin [Mass/Vol] 50 ng/mL Normal 11-307 [facility] Comment on above: Performed By: #### C BCA, FEPR, 6-4 #### [facility] ([id number]) [address], [address] [place] [address] IRON PROFILEon 02-17-2024 Iron [Mass/Vol] 59 ug/dL Normal 50-170 [facility] Comment on above: Performed By: #### C BCA, FEPR, 2276-4 #### [facility] ([id number]) [address], [address] [place] [address] IRON BINDING 384 ug/dL Normal 250-425 [facility] Comment on above: Performed By: #### C BCA, FEPR, 2276-4 #### [facility] ([id number]) [address], [address] [place] [address] IRON SATURATION 15 % SATURATION Normal 15-50 [facility] Comment on above: Performed By: #### C BCA, FEPR, 2276-4 #### [facility] ([id number]) [address], [address] [place] [address] HCG ( test) Ql (U)o n 01-19-2024 Beta HCG ( test) Ql (U) Negative Normal NEG [facility] Comment on above: Performed By: #### 2 106-3 #### [facility] ([id number]) [address] [place] [address] [place] [address] URN MACROSCOPIC NURon 2023 BILIRUBIN SUDHIR Negative Normal NEG [facility] Comment on above: Performed By: #### N UM #### [facility] ([id number]) [address] [place] [address] [place] [address] BLOOD/HGB SUDHIR Trace Abnormal NEG [facility] Comment on above: Performed By: #### N UM #### [facility] ([id number]) [address] [place] [address] [place] [address] GLUCOSE SUDHIR Negative Normal NEG [facility] Comment on above: Performed By: #### N UM #### [facility] ([id number]) [address] [place] [address] [place] [address] KETONES SUDHIR Negative Normal NEG [facility] Comment on above: Performed By: #### N UM #### [facility] ([id number]) [address] [place] [address] [place] [address] LEUKOCYTE ESTERASE SUDHIR Negative Normal NEG [facility] Comment on above: Performed By: #### N UM #### [facility] ([id number]) [address] [place] [address] [place] [address] NITRITE SUDHIR Negative Normal NEG [facility] Comment on above: Performed By: #### N UM #### [facility] ([id number]) [address] [place] [address] [place] [address] PH SUDHIR 6.0 Normal 5.0-8.5 [facility] Comment on above: Performed By: #### N UM #### [facility] ([id number]) [address] [place] [address] [place] [address] PROTEIN SUDHIR Negative Normal NEG [facility] Comment on above: Performed By: #### N UM #### [facility] ([id number]) [address] [place] [address], [place] [address] SPECIFIC GRAVITY SUDHIR >=1.030 Normal 1.003-1.035 [facility] Comment on above: Performed By: #### N UM #### [facility] ([id number]) [address] [place] [address] UROBILINOGEN SUDHIR 0.2 eu/dL Normal <1.[address] [facility] Comment on above: Performed By: #### N UM #### [facility] ([id number]) [address] [place] [address] TBH PREG QUANT HCGon 024 HCG QUANTITATIVE <1 mIU/mL [facility] Comment on above: 5-50 0.2-1 WEEK 50-500 1-2 WEEKS 100-5,000 2-3 WEEKS 500-10,000 3-4 WEEKS 1,000-50,000 4-5 WEEKS 10,000-100,000 5-6 WEEKS 15,000-200,000 6-8 WEEKS 10,000-100,000 2-3 MONTHS [facility] CBC AUTO DIFFon 01-19-2023 BASO # 0.1 103/ul Normal 0.0-0.1 [facility] Comment on above: Performed By: #### C BC #### [facility] [address] [place] [address] Dr. Kristie Marrero Basophils/100 WBC (Bld) 0.5 % Normal 0.2-2.0 [facility] Comment on above: Performed By: #### C BC #### [facility] [address] [place] [address] Dr. Kristie Marrero EO # 0.2 103/ul Normal 0.0-0.7 [facility] Comment on above: Performed By: #### C BC #### [facility] [address] [address] [address] Kristie Marrero Eosinophils/100 WBC (Bld) 2.0 % Normal 0.9-7.0 [facility] Comment on above: Performed By: #### C BC #### [facility] [address] [place] [address] Dr. Kristie Marrero Erythrocyte distribution width (RBC) [Ratio] 12.0 % Normal 11.0-15.0 [facility] Comment on above: Performed By: #### C BC #### [facility] [address] [place] [address] Dr. Kristie Marrero Hematocrit (Bld) [Volume fraction] 38.0 % Normal 36.0-48.0 [facility] Comment on above: Performed By: #### C BC #### [facility] [address] [place] [address] Dr. Kristie Marrero Hemoglobin (Bld) [Mass/Vol] 13.3 g/dL Normal 12.0-16.0 [facility] Comment on above: Performed By: #### C BC #### [facility] [address] [place] [address] Dr. Kristie Marrero IG # 0.04 10e3/ul Critically high 0.00-0.03 [facility] Comment on above: Performed By: #### C BC #### [facility] [address] [place] [address] Dr. Kristie Marrero IG % 0.4 % Normal 0.0-0.5 [facility] Comment on above: Performed By: #### C BC #### [facility] [address] [place] [address] Dr. Kristie Marrero LYMPH # 1.3 103/ul Normal 1.2-3.8 [facility] Comment on above: Performed By: #### C BC #### [facility] [address] [place] [address] Dr. Kristie Marrero Lymphocytes/100 WBC (Bld) 12.3 % Critically low 20.5-60.0 [facility] Comment on above: Performed By: #### C BC #### [facility] [address] [place] [address] Dr. Kristie Marrero MANUAL DIFF REQ NO Normal [facility] Comment on above: Performed By: #### C BC #### [facility] [address] [place] [address] Dr. Kristie Marrero MCH (RBC) [Entitic mass] 29.2 pg Normal 26.7-34.0 [facility] Comment on above: Performed By: #### C BC #### [facility] [address] [place] [address] Dr. Kristie Marrero MCHC (RBC) [Mass/Vol] 35.0 g/dL Normal 29.9-35.2 [facility] Comment on above: Performed By: #### C BC #### [facility] [address] [place] [address] Dr. Kristie Marrero MCV (RBC) [Entitic vol] 83.3 fL Normal 81.0-99.0 [facility] Comment on above: Performed By: #### C BC #### [facility] [address] [place] [address] Dr. Kristie Marrero MONO # 0.7 103/ul Normal 0.3-0.8 [facility] Comment on above: Performed By: #### C BC #### [facility] [address] [place] [address] Dr. Kristie Marrero Monocytes/100 WBC (Bld) 7.0 % Normal 1.7-12.0 [facility] Comment on above: Performed By: #### C BC #### [facility] [address] [place] [address] Dr. Kristie Marrero NEUT # 8.2 103/ul Critically high 1.4-6.5 [facility] Comment on above: Performed By: #### C BC #### [facility] [address] [place] [address] Dr. Kristie Marrero Neutrophils/100 WBC (Bld) 77.8 % Critically high 43.0-75.0 [facility] Comment on above: Performed By: #### C BC #### [facility] [address] [place] [address] Dr. Kristie Marrero Platelet mean volume (Bld) [Entitic vol] 9.5 fL Normal 9.5-13.5 [facility] Comment on above: Performed By: #### C BC #### [facility] [address] [place] [address] Dr. Kristie Marrero PLT 265 103/ul Normal 150-450 [facility] Comment on above: Performed By: #### C BC #### [facility] [address] [place] [address] Dr. Kristie Marrero RBC 4.56 106/ul Normal 4.20-5.40 [facility] Comment on above: Performed By: #### C BC #### [facility] [address] [place] [address] Dr. Kristie Marrero WBC 10.5 103/ul Normal 4.0-11.0 [facility] Comment on above: Performed By: #### C BC #### [facility] [address] [place] [address] Dr. Kristie Marrero PREG HCG QUALon 01-19-2023 , QUAL Negative Normal NEGATIVE [facility] Comment on above: Performed By: #### P REG #### [facility] [address] [place] [address] Dr. Kristie Marrero CHLAMYDIA/GONOCOCCUS RADHA ( AB/URINE/PAPon 11-19-2022 Chlamydia trachomatis, RADHA Negative Normal Negative [facility] Comment on above: Performed By: #### C T/NGNA #### [facility] [address] [place] [address] Dr. Kristie Marrero Neisseria gonorrhoeae, RADHA Negative Normal Negative [facility] Comment on above: Performed By: #### C T/NGNA #### [facility] [address] [place] [address] Dr. Kristie Marrero VAGINITIS/VAGINOSIS DNA PROB Syed 11-18-2022 Jenny species Negative Normal Negative [facility] Comment on above: Performed By: #### V AGINT #### [facility] [address] [place] [address] Dr. Kristie Marrero Gardnerella vaginalis Positive Abnormal Negative [facility] Comment on above: Performed By: #### V AGINT #### [facility] [address] [place] [address] Dr. Kristie Marrero Trichomonas vaginalis Negative Normal Negative [facility] Comment on above: Performed By: #### V AGINT #### [facility] [address] [place], [place] [address] Dr. Kristie Marrero [facility] SARS-CoV-2 (COVID-19) RNA RADHA+probe Ql (Unsp spec) Detected Critically abnormal NOT DETECTED [facility] Comment on above: Result Comment: This test is not yet approved or cleared by the [place] FDA. When there are no FDA-approved or cleared tests available, and other criteria are met, FDA can make tests available under an emergency access mechanism called an Emergency Use Authorization (EUA). The EUA for this test is supported by the [place] of Health and Human Service's (HHS's) declaration [...] used). Performed By: #### C VDTBH #### [facility] [id number] Kristie Marrero Vital Signs Date Time Vital Sign Value Performing Clinician Facility 12-20-2023 15:22040 Body height 170.2 cm Summer LOPEZ Work Phone: [facility] 12-20-2023 15:22-040 Body mass index (BMI) [Ratio] 38.28 kg/m2 Summer LOPEZ Work Phone: [facility] 12-20-2023 15:22-040 Body temperature 98.29 [degF] Summer LOPEZ Work Phone: [facility] 12-20-2023 15:22-0400 Body weight 110.86 kg Summer Davalos APRN-HARPER Work Phone: [facility] 12-20-2023 15:22-0400 Diastolic blood pressure 80 mm[Hg] Summer Kuns CONTINUOUS IMPROVEMENT MANAGER-CREDIT FRONT OFFICE DEVELOPER [facility] 12-20-2023 15:22-0400 Heart rate 82 /min Summer Davalos CONTINUOUS IMPROVEMENT MANAGER-CREDIT FRONT OFFICE DEVELOPER Work Phone: [facility] 12-20-2023 15:22-0400 Respiratory rate 18 /min Summer Davalos CONTINUOUS IMPROVEMENT MANAGER-CREDIT FRONT OFFICE DEVELOPER Work Phone: [facility] 12-20-2023 15:22-0400 SaO2% (BldA) [Mass fraction] 97 % Summer Davalos CONTINUOUS IMPROVEMENT MANAGER-CREDIT FRONT OFFICE DEVELOPER Work Phone: [facility] 12-20-2023 15:22-0400 Systolic blood pressure 100 mm[Hg] Summer Davalos CONTINUOUS IMPROVEMENT MANAGER-CREDIT FRONT OFFICE DEVELOPER Work Phone: [facility] [employer] Encounters Encounter Date Encounter Type Care Provider Facility Start: 02-17-2024 End: 02-18-2024 ambulatory [facility] Start: 02-17-2024 End: 02-17-2024 ambulatory [facility] Start: 02-15-2024 End: 02-15-2024 ambulatory CARMEN ABBASI Not Available Start: 02-07-2024 End: 02-07-2024 ambulatory MADELEINE PRETTY Not Available Start: 01-19-2024 End: 01-19-2024 Emergency department patient visit [facility] Start: 12-20-2023 End: 12-20-2023 ambulatory [facility] Start: 12-20-2023 End: 12-20-2023 Office outpatient visit 15 minutes Summer Davalos CONTINUOUS IMPROVEMENT MANAGER-CREDIT FRONT OFFICE DEVELOPER Work Phone: [facility] Comment [...] Adult depression scr eening assessment Summer Davalos CONTINUOUS IMPROVEMENT MANAGER-CREDIT FRONT OFFICE DEVELOPER Work Phone: Start: 11-21-2023 [facility] PREG QUANT HCG Core y Ayleen DO Work Phone: Start: 11-16-2022 Microscopic observat ion [Identifier] in Cervix by Cyto stain Summer Davalos CONTINUOUS IMPROVEMENT MANAGER-CREDIT FRONT OFFICE DEVELOPER Work Phone: Plan of Treatment Date Care Activity Detail Author Start: 11-13-2029 DTaP,Tdap and Td Vaccines (7 - Td or Tdap) DTaP,Tdap and Td Vaccines (7 - Td or Tdap) [facility] Start: 11-16-2025 Screening for malign ant neoplasm of cervix Pap Smear [facility] Start: 12-19-2024 Adult BMI Screening Adult BMI Screen ing [facility] Start: 12-19-2024 Depression Screening Depression Scre ening [facility] Start: 12-19-2024 Tobacco Screening Tobacco Screening [facility] Start: 09-14-2024 Adult BMI Follow Up Plan Adult BMI Follow Up Plan [facility] Start: 06-10-2023 Influenza vaccination Influenza Vacc ine (#1) [facility] Immunizations Immunization Date Immunization Notes Care Provider Fa cility 11-13-2019 tetanus toxoid, redu clifford diphtheria toxoid, and acellular pertussis vaccine, adsorbed Summer Davalos CONTINUOUS IMPROVEMENT MANAGER-CREDIT FRONT OFFICE DEVELOPER Work Phone: [facility] 01-22-2014 diphtheria, tetanus toxoids and acellular pertussis vaccine, unspecified formulation Summer Davalos CONTINUOUS IMPROVEMENT MANAGER-CREDIT FRONT OFFICE DEVELOPER Work Phone: [facility] 06-22-2004 diphtheria, tetanus toxoids and acellular pertussis vaccine Summer Davalos CONTINUOUS IMPROVEMENT MANAGER-CREDIT FRONT OFFICE DEVELOPER Work Phone: [facility] 06-22-2004 haemophilus influenz ae type b vaccine, PRP-T conjugate Summer Davalos CONTINUOUS IMPROVEMENT MANAGER-CREDIT FRONT OFFICE DEVELOPER Work Phone: [facility] 06-22-2004 pneumococcal conjuga te vaccine, 7 valent Summer Davalos CONTINUOUS IMPROVEMENT MANAGER-CREDIT FRONT OFFICE DEVELOPER Work Phone: [facility] 12-20-2003 DTaP-hepatitis B and poliovirus vaccine Summer Davalos CONTINUOUS IMPROVEMENT MANAGER-CREDIT FRONT OFFICE DEVELOPER Work Phone: [facility] 12-20-2003 haemophilus influenz ae type b vaccine, PRP-T conjugate Summer Davalos CONTINUOUS IMPROVEMENT MANAGER-CREDIT FRONT OFFICE DEVELOPER Work Phone: [facility] 12-20-2003 measles, mumps and rubella virus vaccine Summer Davalos CONTINUOUS IMPROVEMENT MANAGER-CREDIT FRONT OFFICE DEVELOPER Work Phone: [facility] 12-20-2003 varicella virus vaccine Summer Davalos CONTINUOUS IMPROVEMENT MANAGER-CREDIT FRONT OFFICE DEVELOPER Work Phone: [facility] 11-11-2003 DTaP-hepatitis B and poliovirus vaccine Summer Davalos CONTINUOUS IMPROVEMENT MANAGER-CREDIT FRONT OFFICE DEVELOPER Work Phone: [facility] 11-11-2003 haemophilus influenz ae type b vaccine, PRP-T conjugate Summer Davalos CONTINUOUS IMPROVEMENT MANAGER-CREDIT FRONT OFFICE DEVELOPER Work Phone: [facility] 11-11-2003 pneumococcal conjuga te vaccine, 7 valent Summer Davalos CONTINUOUS IMPROVEMENT MANAGER-CREDIT FRONT OFFICE DEVELOPER Work Phone: [facility] 05-31-2003 DTaP-hepatitis B and poliovirus vaccine Summer Davalos CONTINUOUS IMPROVEMENT MANAGER-CREDIT FRONT OFFICE DEVELOPER Work Phone: [facility] 05-31-2003 haemophilus influenz ae type b vaccine, PRP-T conjugate Summer Davalos CONTINUOUS IMPROVEMENT MANAGER-CREDIT FRONT OFFICE DEVELOPER Work Phone: [facility] 05-31-2003 pneumococcal conjuga te vaccine, 7 valent Summre Davalos CONTINUOUS IMPROVEMENT MANAGER-CREDIT FRONT OFFICE DEVELOPER Work Phone: [facility] 2002 hepatitis B vaccine, pediatric or pediatric/adolescent dosage Smumer Davalos CONTINUOUS IMPROVEMENT MANAGER-CREDIT FRONT OFFICE DEVELOPER Work Phone: [facility] Payers Date Payer Category Payer Medicaid [id number] 2002 Unknown [id number] 2.16.8 [id number] 2002 Unknown [id number] 2.16.84 [id number] 2002 Unknown [id number] 2.16.84 [id number] 2002 Unknown [id number] 2.16.8 [id number] 2002 Unknown [id number] 2.16.8 [id number] 2002 Unknown [id number] 2.16.8 [id number] 1982 Unknown [id number] 2.16.84 [id number] 1982 Unknown [id number] 2.16.84 [id number] 1982 Unknown [id number] 2.16.84 [id number] 1959 Unknown [id number] 1959 Unknown [id number] Social History Date Type Detail Facility Start: 05-19-2023 Tobacco smoking stat [facility] Tobacco smoking consumption unknown [facility] Start: 05-19-2023 Tobacco use and exposure User of smokeless tobacco [facility] Start: 11-18-2023 End: 12-20-2023 Alcohol intake Lifetime non-drinker (finding[facility] [facility] Start: 11-11-2020 End: 05-19-2023 History of Social function [facility] Start: 11-11-2020 End: 05-19-2023 Tobacco use panel [facility] Start: 2000 Sex Assigned At Not on file [facility] Start: 01-15-2023 [facility] Start: 01-15-2023 Tobacco use and exposure Smokeless tobacco non-user [facility] Frequency of Alcohol Consumption Never [facility] History of Present illness Narrative 12-20-2023 Summer Davalos, CONTINUOUS IMPROVEMENT MANAGER-CREDIT FRONT OFFICE DEVELOPER - 12/20/2023 3:20 PM EDT Note Date [...] in adult She has her contraception and specimen technician care thru Dr Abbasi, she should continue [...] eat right as well JOHN Thrasher 12/20/23 [id number] documented in this encounter [facility] Evaluation note Note Date & Type Note Facility Evaluation note Diagnosis PTSD (post-traumatic stress disorder)- Primary Posttraumatic stress disorder General counseling and advice for contraceptive management Class 2 obesity due to excess calories without serious comorbidity with body mass index (BMI) of 37.0 to 37.9 in adult documented in this encounter [facility] Instructions Note Date & Type Note Facility Instructions Not on filedocumented in this en counter [facility] Reason for referral (narrative) Consultation (Routine) - Pending Review Note Date & Type Note Facility Reason for referral (narrati ve) Specialty Diagnoses / Procedures Referred By Vinny stoddard Referred To Contact Diagnoses PTSD (post-traumatic stress disorder) Summer Davalos APRN-FNP [address] [place] [address] Referral ID Status Reason Start Date Expiration Date Visits Requested Visits Authorized [id number] Pending Review Patient Preference 12/20/2023 12/19/2024 1 1 [facility] Summary Purpose Family History [...] and content) DATE CREATED AUTHOR 01/27/2023 [facility] DATE CREATED AUTHOR AUTHOR'S ORGANIZ ATION 01/20/2024 [facility] DATE CREATED AUTHOR AUTHOR'S ORGANIZ ATION 02/17/2024 [facility] EPIC DATE CREATED AUTHOR AUTHOR'S ORGANIZ ATION 02/19/2024 [facility] DATE CREATED AUTHOR AUTHOR'S ORGANIZ ATION 02/20/2024 [facility] Care Teams (unrecognized sec tion and content) Director Of User Experience Relationship Specialty Start Date End Date Reid Jasmine MD PCP - General Family Medicine 08/01/23 Director Of User Experience Relationship Specialty Start Date End Date Summer Davalos, CONTINUOUS IMPROVEMENT MANAGER-CREDIT FRONT OFFICE DEVELOPER [address] [place] [address] PCP - General Internal Medicine 09/14/23 Reason [...] BE BASED ON THE PRIMARY CLINICAL RECORDS. [employer] provides no warranty or guarantee of the accuracy or completeness of information in this document.
== END 2024-05-11 08:29 | disposition home or self-care (01) ==
LOC: NOMS 08:29
PROVIDERS: PCP Nurse Practitioner Family; Visit Provider Obstetrics & Gynecology
DX: Z34.91 Encounter for supervision of normal pregnancy, unspecified, first trimester (principal); N92.6 Irregular menstruation, unspecified
CPT/HCPCS: 76817

== ENCOUNTER 2024-05-11 09:26 | Outpatient (OUT) | payer OTHER, SELFPAY ==
--- OUTSIDE RECORDS SUMMARY | 2024-05-11 09:32 | XMS_ITS | CCD ---
Author Organization [facility] Team Providers Care Belt Glass Sander Name Role Phone BOYDC, DR BEAN Primary [...] Unavailable Reid Jasmine MD Primary Care Provider [phone] Kunemma EMBROIDERY ASSISTANT-CRABBER, Summer Machado Primary Care Provider SUMMER DAVALOS [...] Facility (1 source) Ondansetron Drug Allergy [facility] Repository (1 source) Ondansetron Drug Allergy 08-01-2023 Rash [facility] Work Phone: (4 sources) Ondansetron; Translations: [ONDANSETRON HCL] Drug Allergy 12-11-2022 [facility] Medications Current Medications Medication Drug Class(es) Dates [...] 24 ABSOLUTE BASOPHIL 0.2 X10E9/L Normal 0.0-0.2 [facility] Comment on above: Performed By: #### C AFTAB FEPR, 2276-01 #### [facility] ([id number]) [address], [address] [place] [address] ABSOLUTE NEUTROPHIL 3.1 X10E9/L Normal 1.5-6.6 [facility] Comment on above: Performed By: #### C AFTAB, FEPR, 2276-01 #### [facility] ([id number]) [address], [address] [place] [address] Basophils/100 WBC (Bld) 3.0 % Normal [facility] Comment on above: Performed By: #### C AFTAB FEPR, 2276-01 #### [facility] ([id number]) [address], [address] [place] [address] Eosinophils (Bld) [#/Vol] 0.2 10*3/uL Normal 0.0-0.4 [facility] Comment on above: Performed By: #### C AFTAB, FEPR, 2276-01 #### [facility] ([id number]) [address], [address] [place] [address] Eosinophils/100 WBC (Bld) 3.4 % Normal [facility] Comment on above: Performed By: #### C AFTAB FEPR, 2276-01 #### [facility] ([id number]) [address], [address] [place] [address] Erythrocyte distribution width (RBC) [Ratio] 13.3 % Normal 11.5-15.0 [facility] Comment on above: Performed By: #### Terri UGALDE, FEPR, 2276-01 #### [facility] ([id number]) [address] [place] [address] Hematocrit (Bld) [Volume fraction] 40.3 % Normal 35-47 [facility] Comment on above: Performed By: #### C AFTAB, FEPR, 4 #### [facility] ([id number]) [address] [place] [address] Hemoglobin (Bld) [Mass/Vol] 13.8 g/dL Normal 11.7-15.5 [facility] Comment on above: Performed By: #### C AFTAB, FEPR, 2275- #### [facility] ([id number]) [address], [address] [place] [address] Lymphocytes (Bld) [#/Vol] 2.1 10*3/uL Normal 1.0-3.5 [facility] Comment on above: Performed By: #### C AFTAB, FEPR, 2276-01 #### [facility] ([id number]) [address] [place] [address] Lymphocytes/100 WBC (Bld) 35.1 % Normal [facility] Comment on above: Performed By: #### Terri UGALDE, FEPR, 2276-01 #### [facility] ([id number]) [address] [place] [address] MCH (RBC) [Entitic mass] 29.0 pg Normal 27-34 [facility] Comment on above: Performed By: #### C AFTAB, FEPR, 2275- #### [facility] ([id number]) [address] [place] [address] MCHC (RBC) [Mass/Vol] 34.2 g/dL Normal 32-36 [facility] Comment on above: Performed By: #### C BCA, FEPR, 2276-01 #### [facility] ([id number]) [address] [place] [address] MCV (RBC) [Entitic vol] 85 fL Normal 80-100 [facility] Comment on above: Performed By: #### C AFTAB, FEPR, 2276-01 #### [facility] ([id number]) [address] [place] [address] Monocytes (Bld) [#/Vol] 0.5 10*3/uL Normal 0-0.9 [facility] Comment on above: Performed By: #### C BCA, FEPR, 2275-4 #### [facility] ([id number]) [address] [place] [address] Monocytes/100 WBC (Bld) 7.5 % Normal [facility] Comment on above: Performed By: #### Terri UGALDE, FEPR, 2276-01 #### [facility] ([id number]) [address] [place] [address] Neutrophils/100 WBC (Bld) 51.0 % Normal [facility] Comment on above: Performed By: #### Terri BCA, FEPR, 2276-01 #### [facility] ([id number]) [address] [place] [address] Platelet mean volume (Bld) [Entitic vol] 8.8 fL Normal 7-12 [facility] Comment on above: Performed By: #### Terri BCA, FEPR, 2276-01 #### [facility] ([id number]) [address] [place] [address] Platelets (Bld) [#/Vol] 272 10*3/uL Normal 150-450 [facility] Comment on above: Performed By: #### Terri BCA, FEPR, 2275-4 #### [facility] ([id number]) [address] [place] [address] RBC COUNT 4.75 X10E12/L Normal 3.80-5.20 [facility] Comment on above: Performed By: #### Terri BCA, FEPR, 2275-4 #### [facility] ([id number]) [address] [place] [address] WBC (Bld) [#/Vol] 6.1 10*3/uL Normal 4.0-11.0 [facility] Comment on above: Performed By: #### C BCA, FEPR, 2276-4 #### [facility] ([id number]) [address] [place] [address] FERRITINon 02-17-2024 Ferritin [Mass/Vol] 50 ng/mL Normal 11-307 [facility] Comment on above: Performed By: #### C BCA, FEPR, 6-4 #### [facility] ([id number]) [address] [place] [address] IRON PROFILEon 02-17-2024 Iron [Mass/Vol] 59 ug/dL Normal 50-170 [facility] Comment on above: Performed By: #### C BCA, FEPR, 2276-4 #### [facility] ([id number]) [address] [place] [address] IRON BINDING 384 ug/dL Normal 250-425 [facility] Comment on above: Performed By: #### C BCA, FEPR, 2276-4 #### [facility] ([id number]) [address] [place] [address] IRON SATURATION 15 % SATURATION Normal 15-50 [facility] Comment on above: Performed By: #### C BCA, FEPR, 2276-4 #### [facility] ([id number]) [address] [place] [address] HCG ( test) Ql (U)o n 01-19-2024 Beta HCG ( test) Ql (U) Negative Normal NEG [facility] Comment on above: Performed By: #### 2 106-3 #### [facility] ([id number]) [address] [place] [address] [place] [address] URN MACROSCOPIC NURon 2023 BILIRUBIN SUDHIR Negative Normal NEG [facility] Comment on above: Performed By: #### N UM #### [facility] ([id number]) [address] [place] [address] [place] [address] BLOOD/HGB SUDHIR Trace Abnormal NEG [facility] Comment on above: Performed By: #### N UM #### [facility] ([id number]) [address] [place] [address] [place] [address] GLUCOSE SUDHIR Negative Normal NEG [facility] Comment on above: Performed By: #### N UM #### [facility] ([id number]) [address] [place] [address] [place] [address] KETONES SUDHIR Negative Normal NEG [facility] Comment on above: Performed By: #### N UM #### [facility] ([id number]) [address] [place] [address] [place] [address] LEUKOCYTE ESTERASE SUDHIR Negative Normal NEG [facility] Comment on above: Performed By: #### N UM #### [facility] ([id number]) [address] [place] [address] [place] [address] NITRITE SUDHIR Negative Normal NEG [facility] Comment on above: Performed By: #### N UM #### [facility] ([id number]) [address] [place] [address] [place] [address] PH SUDHIR 6.0 Normal 5.0-8.5 [facility] Comment on above: Performed By: #### N UM #### [facility] ([id number]) [address] [place] [address] [place] [address] PROTEIN SUDHIR Negative Normal NEG [facility] Comment on above: Performed By: #### N UM #### [facility] ([id number]) [address] [place] [address], [place] [address] SPECIFIC GRAVITY SUDHIR >=1.030 Normal 1.003-1.035 [facility] Comment on above: Performed By: #### N UM #### [facility] ([id number]) [address] [place] [address] UROBILINOGEN SUDHIR 0.2 eu/dL Normal <1.1 [facility] Comment on above: Performed By: #### N UM #### [facility] ([id number]) [address] [place] [address] [facility] PREG QUANT HCGon 024 HCG QUANTITATIVE <1 mIU/mL [facility] Comment on above: 5-50 0.2-1 WEEK 50-500 1-2 WEEKS 100-5,000 2-3 WEEKS 500-10,000 3-4 WEEKS 1,000-50,000 4-5 WEEKS 10,000-100,000 5-6 WEEKS 15,000-200,000 6-8 WEEKS 10,000-100,000 2-3 MONTHS [facility] CBC AUTO DIFFon 01-19-2023 BASO # 0.1 103/ul Normal 0.0-0.1 [facility] Comment on above: Performed By: #### C BC #### [facility] [address] [place] [address] Dr. Kristie Marrero Basophils/100 WBC (Bld) 0.5 % Normal 0.2-2.0 [facility] Comment on above: Performed By: #### C BC #### [facility] [address] [place] [address] Dr. Kristie Marrero EO # 0.2 103/ul Normal 0.0-0.7 [facility] Comment on above: Performed By: #### C BC #### [facility] [address] [address] [address] Kristie Marrero Eosinophils/100 WBC (Bld) 2.0 % Normal 0.9-7.0 [facility] Comment on above: Performed By: #### C BC #### [facility] [address] [place] [address] Dr. Kristie Marrero Erythrocyte distribution width (RBC) [Ratio] 12.0 % Normal 11.0-15.0 [facility] Comment on above: Performed By: #### C BC #### [facility] [address] [place] [address] Dr. Kristie Marrero Hematocrit (Bld) [Volume fraction] 38.0 % Normal 36.0-48.0 [facility] Comment on above: Performed By: #### C BC #### [facility] [address] [place] [address] Dr. Kristie Marrero Hemoglobin (Bld) [Mass/Vol] 13.3 g/dL Normal 12.0-16.0 [facility] Comment on above: Performed By: #### C BC #### [facility] [address] [place] [address] Dr. Kristie Marrero IG # 0.04 10e3/ul Critically high 0.00-0.03 [facility] Comment on above: Performed By: #### C BC #### [facility] [address] [place] [address] Dr. Kristie Marrero IG % 0.4 % Normal 0.0-0.5 [facility] Comment on above: Performed By: #### C BC #### [facility] [address] [place] [address] Dr. Kristie Marrero LYMPH # 1.3 103/ul Normal 1.2-3.8 [facility] Comment on above: Performed By: #### C BC #### [facility] [address] [place] [address] Dr. Kristie Marrero Lymphocytes/100 WBC (Bld) 12.3 % Critically low 20.5-60.0 [facility] Comment on above: Performed By: #### C BC #### [facility] [address] [place] [address] Dr. Kristie Marrero MANUAL DIFF REQ NO Normal [facility] Comment on above: Performed By: #### C BC #### [facility] [address] [place] [address] Dr. Kristie Marrero MCH (RBC) [Entitic mass] 29.2 pg Normal 26.7-34.0 [facility] Comment on above: Performed By: #### C BC #### [facility] [address] [place] [address] Dr. Kristie Marrero MCHC (RBC) [Mass/Vol] 35.0 g/dL Normal 29.9-35.2 [facility] Comment on above: Performed By: #### C BC #### [facility] [address] [place] [address] Dr. Kristie Marrero MCV (RBC) [Entitic vol] 83.3 fL Normal 81.0-99.0 [facility] Comment on above: Performed By: #### C BC #### [facility] [address] [place] [address] Dr. Kristie Marrero MONO # 0.7 103/ul Normal 0.3-0.8 [facility] Comment on above: Performed By: #### C BC #### [facility] [address] [place] [address] Dr. Kristie Marrero Monocytes/100 WBC (Bld) 7.0 % Normal 1.7-12.0 [facility] Comment on above: Performed By: #### C BC #### [facility] [address] [place] [address] Dr. Kristie Marrero NEUT # 8.2 103/ul Critically high 1.4-6.5 [facility] Comment on above: Performed By: #### C BC #### [facility] [address] [place] [address] Dr. Kristie Marrero Neutrophils/100 WBC (Bld) 77.8 % Critically high 43.0-75.0 [facility] Comment on above: Performed By: #### C BC #### [facility] [address] [place] [address] Dr. Kristie Marrero Platelet mean volume (Bld) [Entitic vol] 9.5 fL Normal 9.5-13.5 [facility] Comment on above: Performed By: #### C BC #### [facility] [address] [place] [address] Dr. Kristie Marrero PLT 265 103/ul Normal 150-450 [facility] Comment on above: Performed By: #### C BC #### [facility] [address] [place] [address] Dr. Kristie Marrero RBC 4.56 106/ul Normal 4.20-5.40 [facility] Comment on above: Performed By: #### C BC #### [facility] [address] [place] [address] Dr. Kristie Marrero WBC 10.5 103/ul Normal 4.0-11.0 [facility] Comment on above: Performed By: #### C BC #### [facility] [address] [place] [address] Dr. Kristie Marrero PREG HCG QUALon 01-19-2023 , QUAL Negative Normal NEGATIVE [facility] Comment on above: Performed By: #### P REG #### [facility] [address] [place] [address] Dr. Kristie Marrero CHLAMYDIA/GONOCOCCUS RADHA ( AB/URINE/PAPon 11-19-2022 Chlamydia trachomatis, RADHA Negative Normal Negative [facility] Comment on above: Performed By: #### C T/NGNA #### [facility] [address] [place] [address] Dr. Kristie Marrero Neisseria gonorrhoeae, RADHA Negative Normal Negative [facility] Comment on above: Performed By: #### C T/NGNA #### [facility] [address] [place] [address] Dr. Kristie Marrero VAGINITIS/VAGINOSIS DNA PROB Syed 11-18-2022 Jenny species Negative Normal Negative [facility] Comment on above: Performed By: #### V AGINT #### [facility] [address] [place] [address] Dr. Kristie Marrero Gardnerella vaginalis Positive Abnormal Negative [facility] Comment on above: Performed By: #### V AGINT #### [facility] [address] [place] [address] Dr. Kristie Marrero Trichomonas vaginalis Negative Normal Negative [facility] Comment on above: Performed By: #### V AGINT #### [facility] [address] [place], [place] [address] Dr. Kristie Marrero [facility]-19 [facility] 04-10 SARS-CoV-2 (COVID-19) RNA RADHA+probe Ql (Unsp spec) Detected Critically abnormal NOT DETECTED [facility] Comment on above: Result Comment: This test is not yet approved or cleared by the [place] FDA. When there are no FDA-approved or cleared tests available, and other criteria are met, FDA can make tests available under an emergency access mechanism called an Emergency Use Authorization (EUA). The EUA for this test is supported by the [place] of Health and Human Service's (HHS's) declaration [...] used). Performed By: #### C VDTBH #### [facility] [id number] Kristie Marrero Vital Signs Date Time Vital Sign Value Performing Clinician Facility 12-20-2023 15:22040 Body height 170.2 cm Summer LOPEZ Work Phone: [facility] [employer] [facility] 12-20-2023 15:22-040 Body mass index (BMI) [Ratio] 38.28 kg/m2 Summer LOPEZ Work Phone: [facility] [employer] [facility] 12-20-2023 15:22-040 Body temperature 98.29 [degF] Summer LOPEZ Work Phone: [facility] [employer] [facility] 12-20-2023 15:22-0400 Body weight 110.86 kg Summer Davalos APRN-HARPER Work Phone: [facility] [employer] [facility] 12-20-2023 15:22-0400 Diastolic blood pressure 80 mm[Hg] Summer Kuns EMBROIDERY ASSISTANT-CRABBER [facility] 12-20-2023 15:22-0400 Heart rate 82 /min Summer Davalos EMBROIDERY ASSISTANT-CRABBER Work Phone: [facility] [employer] [facility] 12-20-2023 15:22-0400 Respiratory rate 18 /min Summer Davalos EMBROIDERY ASSISTANT-CRABBER Work Phone: [facility] [employer] [facility] 12-20-2023 15:22-0400 SaO2% (BldA) [Mass fraction] 97 % Summer Davalos EMBROIDERY ASSISTANT-CRABBER Work Phone: [facility] [employer] [facility] 12-20-2023 15:22-0400 Systolic blood pressure 100 mm[Hg] Summer Davalos EMBROIDERY ASSISTANT-CRABBER Work Phone: [facility] [employer] Encounters Encounter Date Encounter Type Care Provider Facility Start: 02-17-2024 End: 02-18-2024 ambulatory [facility] Start: 02-17-2024 End: 02-17-2024 ambulatory [facility] Start: 02-15-2024 End: 02-15-2024 ambulatory CARMEN ABBASI Not Available Start: 02-07-2024 End: 02-07-2024 ambulatory MADELEINE PRETTY Not Available Start: 01-19-2024 End: 01-19-2024 Emergency department patient visit [facility] Start: 12-20-2023 End: 12-20-2023 ambulatory [facility] Start: 12-20-2023 End: 12-20-2023 Office outpatient visit 15 minutes Summer Davalos EMBROIDERY ASSISTANT-CRABBER Work Phone: [facility] - Family Medicine [...] Adult depression scr eening assessment Summer Davalos EMBROIDERY ASSISTANT-CRABBER Work Phone: Start: 11-21-2023 [facility] PREG QUANT HCG Core y Ayleen DO Work Phone: Start: 11-16-2022 Microscopic observat ion [Identifier] in Cervix by Cyto stain Summer Davalos EMBROIDERY ASSISTANT-CRABBER Work Phone: Plan of Treatment Date Care Activity Detail Author Start: 11-13-2029 DTaP,Tdap and Td Vaccines (7 - Td or Tdap) DTaP,Tdap and Td Vaccines (7 - Td or Tdap) [facility] Start: 11-16-2025 Screening for malign ant neoplasm of cervix Pap Smear [facility] Start: 12-19-2024 Adult BMI Screening Adult BMI Screen ing [facility] Start: 12-19-2024 Depression Screening Depression Scre ening [facility] Start: 12-19-2024 Tobacco Screening Tobacco Screening [facility] Start: 09-14-2024 Adult BMI Follow Up Plan Adult BMI Follow Up Plan [facility] Start: 06-10-2023 Influenza vaccination Influenza Vacc ine (#1) [facility] Immunizations Immunization Date Immunization Notes Care Provider Fa cility 11-13-2019 tetanus toxoid, redu clifford diphtheria toxoid, and acellular pertussis vaccine, adsorbed Summer Davalos EMBROIDERY ASSISTANT-CRABBER Work Phone: [facility] 01-22-2014 diphtheria, tetanus toxoids and acellular pertussis vaccine, unspecified formulation Summer Davalos EMBROIDERY ASSISTANT-CRABBER Work Phone: [facility] 06-22-2004 diphtheria, tetanus toxoids and acellular pertussis vaccine Summer Davalos EMBROIDERY ASSISTANT-CRABBER Work Phone: [facility] 06-22-2004 haemophilus influenz ae type b vaccine, PRP-T conjugate Summer Davalos EMBROIDERY ASSISTANT-CRABBER Work Phone: [facility] 06-22-2004 pneumococcal conjuga te vaccine, 7 valent Summer Davalos EMBROIDERY ASSISTANT-CRABBER Work Phone: [facility] 12-20-2003 DTaP-hepatitis B and poliovirus vaccine Summer Davalos EMBROIDERY ASSISTANT-CRABBER Work Phone: [facility] 12-20-2003 haemophilus influenz ae type b vaccine, PRP-T conjugate Summer Davalos EMBROIDERY ASSISTANT-CRABBER Work Phone: [facility] 12-20-2003 measles, mumps and rubella virus vaccine Summer Davalos EMBROIDERY ASSISTANT-CRABBER Work Phone: [facility] 12-20-2003 varicella virus vaccine Summer Davalos EMBROIDERY ASSISTANT-CRABBER Work Phone: [facility] 11-11-2003 DTaP-hepatitis B and poliovirus vaccine Summer Davalos EMBROIDERY ASSISTANT-CRABBER Work Phone: [facility] 11-11-2003 haemophilus influenz ae type b vaccine, PRP-T conjugate Summer Davalos EMBROIDERY ASSISTANT-CRABBER Work Phone: [facility] 11-11-2003 pneumococcal conjuga te vaccine, 7 valent Summer Davalos EMBROIDERY ASSISTANT-CRABBER Work Phone: [facility] 05-31-2003 DTaP-hepatitis B and poliovirus vaccine Summer Davalos EMBROIDERY ASSISTANT-CRABBER Work Phone: [facility] 05-31-2003 haemophilus influenz ae type b vaccine, PRP-T conjugate Summer Davalos EMBROIDERY ASSISTANT-CRABBER Work Phone: [facility] 05-31-2003 pneumococcal conjuga te vaccine, 7 valent Summer Davalos EMBROIDERY ASSISTANT-CRABBER Work Phone: [facility] 2002 hepatitis B vaccine, pediatric or pediatric/adolescent dosage Summer Davalos EMBROIDERY ASSISTANT-CRABBER Work Phone: [facility] Payers Date Payer Category Payer Medicaid [id number] 2002 Unknown [id number] 2.16.8 [id number] 2002 Unknown [id number] 2.16.84 [id number] 2002 Unknown [id number] 2.16.84 [id number] 2002 Unknown [id number] 2.16.8 [id number] 2002 Unknown [id number] 2.16.8 [id number] 2002 Unknown [id number] 2.16.8 [id number] 1982 Unknown [id number] 2.16.84 [id number] 1982 Unknown [id number] 2.16.84 [id number] 1982 Unknown [id number] 2.16.84 [id number] 1959 Unknown [id number] 1959 Unknown [id number] Social History Date Type Detail Facility Start: 05-19-2023 Tobacco smoking stat [facility] Tobacco smoking consumption unknown [facility] Start: 05-19-2023 Tobacco use and exposure User of smokeless tobacco [facility] Start: 11-18-2023 End: 12-20-2023 Alcohol intake Lifetime non-drinker (finding) [facility] Start: 11-11-2020 End: 05-19-2023 History of Social function [facility] Start: 11-11-2020 End: 05-19-2023 Tobacco use panel [facility] Start: 2002 Sex Assigned At Not on file [facility] Start: 01-15-2023 [facility] [facility] Start: 01-15-2023 Tobacco use and exposure Smokeless tobacco non-user [facility] Frequency of Alcohol Consumption Never [facility] History of Present illness Narrative 12-20-2023 Summer Davalos, EMBROIDERY ASSISTANT-CRABBER - 12/20/2023 3:20 PM EDT Note Date [...] in adult She has her contraception and intervention analyst care thru Dr Abbasi, she should continue [...] eat right as well JOHN Thrasher 12/20/23 [id number] documented in this encounter [facility] Evaluation note Note Date & Type Note Facility Evaluation note Diagnosis PTSD (post-traumatic stress disorder)- Primary Posttraumatic stress disorder General counseling and advice for contraceptive management Class 2 obesity due to excess calories without serious comorbidity with body mass index (BMI) of 37.0 to 37.9 in adult documented in this encounter [facility] Instructions Note Date & Type Note Facility Instructions Not on filedocumented in this en counter [facility] Reason for referral (narrative) Consultation (Routine) - Pending Review Note Date & Type Note Facility Reason for referral (narrati ve) Specialty Diagnoses / Procedures Referred By Vinny stoddard Referred To Contact Diagnoses PTSD (post-traumatic stress disorder) Summer Davalos APRN-FNP [address] [place] [address] Referral ID Status Reason Start Date Expiration Date Visits Requested Visits Authorized [id number] Pending Review Patient Preference 12/20/2023 12/19/2024 1 1 [facility] Summary Purpose Family History No [...] and content) DATE CREATED AUTHOR 01/27/2023 [facility] DATE CREATED AUTHOR AUTHOR'S ORGANIZ ATION 01/20/2024 [facility] DATE CREATED AUTHOR AUTHOR'S ORGANIZ ATION 02/17/2024 [facility] EP[facility] DATE CREATED AUTHOR AUTHOR'S ORGANIZ ATION 02/19/2024 [facility] DATE CREATED AUTHOR AUTHOR'S ORGANIZ ATION 02/20/2024 [facility] (unrecognized sec tion and content) [employer] Relationship Specialty Start Date End Date Reid Jasmine MD PCP - General Family Medicine 08/01/23 [employer] Relationship Specialty Start Date End Date Summer Davalos, EMBROIDERY ASSISTANT-CRABBER [address] [place] [address] PCP - General Internal Medicine 09/14/23 Reason [...] BE BASED ON THE PRIMARY CLINICAL RECORDS. [employer] provides no warranty or guarantee of the accuracy or completeness of information in this document.
[2024-05-11 09:57] LABS: Basophils Absolute Auto 0.1 10^3/uL (0.0-0.1); Basophils Percent Auto 0.7 % (0.2-2.0); Eosinophils Absolute Auto 0.1 10^3/uL (0.0-0.7); Eosinophils Percent Auto 1.6 % (0.9-7.0); Hematocrit 37.8 % (36.0-48.0); Hemoglobin 13.2 g/dL (12.0-16.0); Immature Granulocytes Abs Auto 0.01 10^3/uL (0.00-0.03); Immature Granulocytes Pct Auto 0.1 % (0.0-0.5); Lymphocytes Absolute Auto 1.7 10^3/uL (1.2-3.8); Lymphocytes Percent Auto 22.8 % (20.5-60.0); Mean Corpuscular HGB Conc 34.9 g/dL (29.9-35.2); Mean Corpuscular Volume 83.1 fL (81.0-99.0); Monocytes Absolute Auto 0.5 10^3/uL (0.3-0.8); Neutrophils Absolute Auto 5.2 10^3/uL (1.4-6.5); Neutrophils Percent Auto 68.8 % (43.0-75.0); Platelet Count 232 10^3/uL (150-450); Red Blood Count 4.55 10^6/uL (4.20-5.40); Red Cell Distribution Width 12.8 % (11.0-15.0); White Blood Count 7.6 10^3/uL (4.0-11.0)
[2024-05-11 11:12] LABS: Estimated Average Glucose 85 mg/dL; Glycohemoglobin A1C 4.6 % (4.5-6.2)
[2024-05-12 06:10] LABS: HBsAg Screen Negative (Negative); HCV Ab Non Reactive (Non Reactive); HIV Ab/p24 Ag Screen Non Reactive (Non Reactive)
[2024-05-12 07:10] LABS: Rubella Antibodies, IgG 6.75 index (Immune >0.99)
[2024-05-12 10:09] LABS: Rapid Plasma Reagin, Quant Non Reactive titer (NonRea<1:1)
== END 2024-05-11 09:27 | disposition home or self-care (01) ==
LOC: LAB 09:27
PROVIDERS: PCP Nurse Practitioner Family; Visit Provider Obstetrics & Gynecology
DX: Z34.91 Encounter for supervision of normal pregnancy, unspecified, first trimester (principal); N92.6 Irregular menstruation, unspecified
CPT/HCPCS: 36415; 76817; 83036; 85025; 86592; 86762; 86803; 86850; 86900; 86901; 87086; 87340; 87389

== ENCOUNTER 2024-05-22 15:15 | Emergency (ER) | payer OTHER, SELFPAY ==
[2024-05-22 15:20] VITALS: BP 130/76; PULSE 85; TEMP 36.8; O2SAT 97
--- NOTE | 2024-05-22 15:26 | US_ITS ---
[place] [address] Patient Name: FATOUMATA VIEYRA MRN: [id number] date: 2000 Sex: F Assigned Patient Location: ER Current Patient Location: ER Accession/Order Number: [id number] Exam Date: 05/22/2024 15:34 Report Date: 05/22/2024 16:22 At the request of: FIORELLA SALAS Procedure: US OB limited EXAMINATION: US OB limited HISTORY: 14 weeks, low abdominal pain and cramping COMPARISON: No relevant comparison available. FINDINGS: Transabdominal Rodriguez intrauterine gestation Placenta: Anterior CRL: 8.36 cm, 14 weeks 2 days Heart rate: 157 beats minute Clinical age: 14weeks 4 days Clinical MYESHA: 11/16/2024 US/US OB limited IMPRESSION: Viable intrauterine gestation measuring 14 weeks 2 days Electronically authenticated by: MARQUES RAMIREZ Date: 05/22/2024 16:22
--- NOTE | 2024-05-22 15:28 | ED_ITS ---
HPI - General Chief complaint: OB/Uterine Contractions Stated complaint: Issues - less than 20 weeks Time Seen by Provider: 05/22/24 15:17 Source: patient Mode of arrival: walk-in Limitations: no limitations History of Present Illness HPI Narrative: 23-year-old female presents to the emergency department for a chief complaint of low abdominal pain and cramping. She states she is 14 weeks . She has had an ultrasound during this which showed IUP with a heartbeat. She has had no bleeding and the symptoms began 4 days ago. The symptom is intermittent. Related Data Home Medications ?Medication ?Instructions ?Recorded ?Confirmed progesterone micronized (bulk) 100 ea miscellaneous 05/22/24 % powder Allergies Allergy/AdvReac Type Severity Reaction Status Date / Time ondansetron [From Zofran] Allergy Mild Rash Verified 05/22/24 15:20 Review of Systems ROS Narrative A ten point review of systems is negative except as noted above. Exam Narrative Exam Narrative: Nurses note and vital signs reviewed and patient is not hypoxic. General: The patient appears well and in no apparent distress. Patient is resting comfortably on cart. Skin: Warm, dry, no pallor noted. There is no rash noted. Head: Normocephalic, atraumatic Eye: Normal conjunctiva, no drainage Ears, Nose, Mouth, and Throat: oral mucosa is moist. Nares patent. Cardiovascular: Regular Rate and Rhythm Respiratory: Patient is in no distress, no accessory muscle use, lungs are clear to auscultation, no wheezing, rales or rhonchi Back: non-tender, GI: Soft and no appreciable tenderness. Musculoskeletal: The patient has no evidence of calf tenderness, no pitting edema, symmetrical pulses noted bilaterally Neurological: A&O, normal speech Psychiatric: Cooperative Constitutional Vital Signs, click to edit/add: Last Vital Signs Temp 98.2 F 05/22/24 15:20 Pulse 85 05/22/24 15:20 Resp 16 05/22/24 15:20 BP 130/76 05/22/24 15:20 Pulse Ox 97 05/22/24 15:20 O2 Del Method Room Air 05/22/24 15:20 Course Vital Signs Vital signs: Vital Signs Temperature 98.2 F 05/22/24 15:20 Pulse Rate 85 05/22/24 15:20 Respiratory Rate 16 05/22/24 15:20 Blood Pressure 130/76 05/22/24 15:20 Pulse Oximetry 97 05/22/24 15:20 Oxygen Delivery Method Room Air 05/22/24 15:20 Temperature 98.2 F 05/22/24 15:20 Pulse Rate 85 05/22/24 15:20 Respiratory Rate 16 05/22/24 15:20 Blood Pressure 130/76 05/22/24 15:20 Pulse Oximetry 97 05/22/24 15:20 Oxygen Delivery Method Room Air 05/22/24 15:20 MDM - OB/Uterine Contractions MDM Narrative Medical decision making narrative: Her workup including ultrasound is negative. She is able to be discharged home. Treatment diagnosis and follow-up were discussed with the patient. Differential Diagnosis Differential diagnosis: Likely premature labor and other (Threatened miscarriage) Lab Data Attestation: I reviewed the patient's lab results. Labs: Lab Results 05/22/24 05/22/24 Range/Units 15:33 15:43 WBC 7.2 (4.0-11.0) 10^3/uL RBC 4.12 L (4.20-5.40) 10^6/uL Hgb 12.2 (12.0-16.0) g/dL Hct 34.0 L (36.0-48.0) % MCV 82.5 (81.0-99.0) fL MCH 29.6 (26.7-34.0) pg MCHC 35.9 H (29.9-35.2) g/dL RDW 12.9 (11.0-15.0) % Plt Count 229 (150-450) 10^3/uL MPV 9.9 (9.5-13.5) fL Neut % (Auto) 63.4 (43.0-75.0) % Lymph % (Auto) 26.1 (20.5-60.0) % [place] % (Auto) 7.8 (1.7-12.0) % Eos % (Auto) 2.1 (0.9-7.0) % Baso % (Auto) 0.3 (0.2-2.0) % Neut # (Auto) 4.5 (1.4-6.5) 10^3/uL Lymph # (Auto) 1.9 (1.2-3.8) 10^3/uL [place] # (Auto) 0.6 (0.3-0.8) 10^3/uL Eos # (Auto) 0.2 (0.0-0.7) 10^3/uL Baso # (Auto) 0.0 (0.0-0.1) 10^3/uL Abs Immat Gran (auto) 0.02 (0.00-0.03) 10^3/uL Imm/Tot Granulo (auto) 0.3 (0.0-0.5) % Sodium 134 L (136-145) mmol/L Potassium 3.6 (3.5-5.1) mmol/L Chloride 101 (98-107) mmol/L Carbon Dioxide 23.3 (21.0-32.0) mmol/L Anion Gap 13.3 BUN 6.0 L (7.0-18.0) mg/dL Creatinine 0.53 L (0.55-1.02) mg/dL Est GFR ( Amer) >60 (>=60) Est GFR (Non-Af Amer) >60 (>=60) BUN/Creatinine Ratio 11.3 Glucose 101 (74-106) mg/dL Calcium 9.2 (8.5-10.1) mg/dL Urine Color Lt. yellow (YELLOW) Urine Clarity Clear (CLEAR) Urine pH 6.0 (5.0-9.0) Ur Specific [place] 1.015 (1.005-1.025) Urine Protein Negative (NEG/TRACE) mg/dL Urine Glucose (UA) Negative (NEGATIVE) mg/dL Urine Ketones Negative (NEGATIVE) mg/dL Urine Occult Blood Negative (NEGATIVE) Urine Nitrite Negative (NEGATIVE) Urine Bilirubin Negative (NEGATIVE) Urine Urobilinogen 0.2 (0.2-1.0) EU/dL Ur Leukocyte Esterase Negative (NEGATIVE) Urine RBC 0-2 (0-2) #/HPF Urine WBC 0-2 A (NONE SEEN) #/HPF Ur Squamous Epith Cells Few A (NONE/RARE) #/LPF Urine Crystals None seen (None Seen) #/HPF Urine Bacteria Small A (NONE SEEN) #/HPF Urine Casts None seen (NONE SEEN) #/LPF Urine Mucus Small A (NONE SEEN) Ur Culture Indicated? Yes Imaging Data Pelvic ultrasound: Radiologist's impression: ITS Impressions Obstetrics Ultrasound 05/22/24 15:26 IMPRESSION: Viable intrauterine gestation measuring 14 weeks 2 days Electronically authenticated by: MARQUES RAMIREZ Date: 05/22/2024 16:22 Discharge Plan Discharge Stand Alone Forms: Portal Instructions Chief Complaint: OB/Uterine Contractions Clinical Impression: Abdominal pain during Patient Disposition: Home, Self-Care Time of Disposition Decision: 16:46 Condition: Good Mode of Transportation: Private Vehicle Prescriptions / Home Meds: No Action progesterone micronized (bulk) 100 % powder MISCELLANEOUS Print Language: Faroese Instructions: Abdominal Pain in (ED) Referrals: ELISA MARES [Primary Care Provider] - 1 week
--- OUTSIDE RECORDS SUMMARY | 2024-05-22 15:32 | XMS_ITS | CCD ---
Author Organization [facility] ion [facility] Care Team Providers Care Forensic Document Examiner Name Role Phone BOYDC, DR BEAN Primary [...] Reid Jasmine MD Primary Care Provider Anoop TOBACCO DRYING MACHINE OPERATOR-DIRECT SALES CONSULTANT, Summer Machado Primary Care Provider SUMMER DAVALOS Primary Care Unavailable MARQUES BUTLER Attending Unavailable SUMMER DAVALOS Attending Unavailable SUMMER DAVALOS Referring Unavailable SUMMER DAVALOS Primary Care Unavailable KATARZYNA, NIVIA L Attending Unavailable SUMMER DAVALOS Referring Unavailable SUMMER DAVALOS Primary Care Unavailable KATARZYNA, NIVIA L Referring Unavailable SUMMER DAVALOS Primary Care Unavailable MADELEINE PRETTY Attending Unavailable CARMEN ABBASI Attending Unavailable Allergies Allergy Classification Reported Allergen(s) Allergy Type Date of Onset Reaction(s) Facility (1 source) Ondansetron Drug Allergy [facility] Repository (1 source) Ondansetron Drug Allergy 08-01-2023 [facility] Work Phone: (4 sources) Ondansetron; Translations: [ONDANSETRON HCL] Drug Allergy 12-11-2022 [facility] Medications Current Medications Medication Drug Class(es) Dates [...] 24 ABSOLUTE BASOPHIL 0.2 X10E9/L Normal 0.0-0.2 [facility] Comment on above: Performed By: #### C AFTAB, FEPR, 2276-01 #### [facility] ([id number]) [address], [address] [place] [address] ABSOLUTE NEUTROPHIL 3.1 X10E9/L Normal 1.5-6.6 [facility] Comment on above: Performed By: #### C AFTAB, FEPR, 2276-01 #### [facility] ([id number]) [address], [address] [place] [address] Basophils/100 WBC (Bld) 3.0 % Normal [facility] Comment on above: Performed By: #### Terri UGALDE, FEPR, 2276-01 #### [facility] ([id number]) [address], [address] [place] [address] Eosinophils (Bld) [#/Vol] 0.2 10*3/uL Normal 0.0-0.4 [facility] Comment on above: Performed By: #### Terri UGALDE, FEPR, 2276-01 #### [facility] ([id number]) [address], [address] [place] [address] Eosinophils/100 WBC (Bld) 3.4 % Normal [facility] Comment on above: Performed By: #### Terri UGALDE, FEPR, 2276-01 #### [facility] ([id number]) [address], [address] [place] [address] Erythrocyte distribution width (RBC) [Ratio] 13.3 % Normal 11.5-15.0 [facility] Comment on above: Performed By: #### C AFTAB, FEPR, 2276-01 #### [facility] ([id number]) [address], [address] [place] [address] Hematocrit (Bld) [Volume fraction] 40.3 % Normal 35-47 [facility] Comment on above: Performed By: #### Terri UGALDE, FEPR, 6-4 #### [facility] ([id number]) [address] [place] [address] Hemoglobin (Bld) [Mass/Vol] 13.8 g/dL Normal 11.7-15.5 [facility] Comment on above: Performed By: #### Terri UGALDE, FEPR, 2275-4 #### [facility] ([id number]) [address], [address] [place] [address] Lymphocytes (Bld) [#/Vol] 2.1 10*3/uL Normal 1.0-3.5 [facility] Comment on above: Performed By: #### Terri UGALDE, FEPR, 2275- #### [facility] ([id number]) [address], [address] [place] [address] Lymphocytes/100 WBC (Bld) 35.1 % Normal [facility] Comment on above: Performed By: #### Terri UGALDE, FEPR, 2276-01 #### [facility] ([id number]) [address] [place] [address] MCH (RBC) [Entitic mass] 29.0 pg Normal 27-34 [facility] Comment on above: Performed By: #### Terri UGALDE, FEPR, 2275-4 #### [facility] ([id number]) [address], [address] [place] [address] MCHC (RBC) [Mass/Vol] 34.2 g/dL Normal 32-36 [facility] Comment on above: Performed By: #### Terri UGALDE, FEPR, 4 #### [facility] ([id number]) [address], [address] [place] [address] MCV (RBC) [Entitic vol] 85 fL Normal 80-100 [facility] Comment on above: Performed By: #### C BCA, FEPR, 2276-01 #### [facility] ([id number]) [address], [address] [place] [address] Monocytes (Bld) [#/Vol] 0.5 10*3/uL Normal 0-0.9 [facility] Comment on above: Performed By: #### C BCA, FEPR, 2275- #### [facility] ([id number]) [address], [address] [place] [address] Monocytes/100 WBC (Bld) 7.5 % Normal [facility] Comment on above: Performed By: #### C BCA, FEPR, 2276-01 #### [facility] ([id number]) [address] [place] [address] Neutrophils/100 WBC (Bld) 51.0 % Normal [facility] Comment on above: Performed By: #### C BCA, FEPR, 2276-01 #### [facility] ([id number]) [address] [place] [address] Platelet mean volume (Bld) [Entitic vol] 8.8 fL Normal 7-12 [facility] Comment on above: Performed By: #### Terri BCA, FEPR, 2276-01 #### [facility] ([id number]) [address], [address] [place] [address] Platelets (Bld) [#/Vol] 272 10*3/uL Normal 150-450 [facility] Comment on above: Performed By: #### C BCA, FEPR, 2275-4 #### [facility] ([id number]) [address] [place] [address] RBC COUNT 4.75 X10E12/L Normal 3.80-5.20 [facility] Comment on above: Performed By: #### C BCA, FEPR, 2275- #### [facility] ([id number]) [address], [facility] [address] [place] [address] WBC (Bld) [#/Vol] 6.1 10*3/uL Normal 4.0-11.0 [facility] Comment on above: Performed By: #### C BCA, FEPR, 6-4 #### [facility] ([id number]) [address], [address] [address] FERRITINon 02-17-2024 Ferritin [Mass/Vol] 50 ng/mL Normal 11-307 [facility] Comment on above: Performed By: #### C BCA, FEPR, 6-4 #### [facility] ([id number]) [address], [facility] [address] [place] [address] IRON PROFILEon 02-17-2024 Iron [Mass/Vol] 59 ug/dL Normal 50-170 [facility] Comment on above: Performed By: #### C BCA, FEPR, 6-4 #### [facility] ([id number]) [address], [address] [address] IRON BINDING 384 ug/dL Normal 250-425 [facility] Comment on above: Performed By: #### C BCA, FEPR, 6-4 #### [facility] ([id number]) [address], [address] [address] IRON SATURATION 15 % SATURATION Normal 15-50 [facility] Comment on above: Performed By: #### C BCA, FEPR, 6-4 #### [facility] ([id number]) [address], [facility] [address] [place] [address] HCG ( test) Ql (U)o n 01-19-2024 Beta HCG ( test) Ql (U) Negative Normal NEG [facility] Comment on above: Performed By: #### 2 106-3 #### [facility] ([id number]) [address] [place] [address] [place] [address] URN MACROSCOPIC NURon 2023 BILIRUBIN SUDHIR Negative Normal NEG [facility] Comment on above: Performed By: #### N UM #### [facility] ([id number]) [address] [place] [address] [place] [address] BLOOD/HGB SUDHIR Trace Abnormal NEG [facility] Comment on above: Performed By: #### N UM #### [facility] ([id number]) [address] [place] [address] [place] [address] GLUCOSE SUDHIR Negative Normal NEG [facility] Comment on above: Performed By: #### N UM #### [facility] ([id number]) [address] [place] [address] [place] [address] KETONES SUDHIR Negative Normal NEG [facility] Comment on above: Performed By: #### N UM #### [facility] ([id number]) [address] [place] [address] [place] [address] LEUKOCYTE ESTERASE SUDHIR Negative Normal NEG [facility] Comment on above: Performed By: #### N UM #### [facility] ([id number]) [address] [place] [address] [place] [address] NITRITE SUDHIR Negative Normal NEG [facility] Comment on above: Performed By: #### N UM #### [facility] ([id number]) [address] [place] [address] [place] [address] PH SUDHIR 6.0 Normal 5.0-8.5 [facility] Comment on above: Performed By: #### N UM #### [facility] ([id number]) [address] [place] [address] [place] [address] PROTEIN SUDHIR Negative Normal NEG [facility] Comment on above: Performed By: #### N UM #### [facility] ([id number]) [address] [place] [address], [place] [address] SPECIFIC GRAVITY SUDHIR >=1.030 Normal 1.003-1.035 [facility] Comment on above: Performed By: #### N UM #### [facility] ([id number]) [address] [place] [address] UROBILINOGEN SUDHIR 0.2 eu/dL Normal <1.[address] [facility] Comment on above: Performed By: #### N UM #### [facility] ([id number]) [address] [place] [address] [facility] PREG QUANT HCGon 024 HCG QUANTITATIVE <1 mIU/mL [facility] Comment on above: 5-50 0.2-1 WEEK 50-500 1-2 WEEKS 100-5,000 2-3 WEEKS 500-10,000 3-4 WEEKS 1,000-50,000 4-5 WEEKS 10,000-100,000 5-6 WEEKS 15,000-200,000 6-8 WEEKS 10,000-100,000 2-3 MONTHS [facility] CBC AUTO DIFFon 01-19-2023 BASO # 0.1 103/ul Normal 0.0-0.1 [facility] Comment on above: Performed By: #### C BC #### [facility] [address] [place] [address] Dr. Kristie Marrero Basophils/100 WBC (Bld) 0.5 % Normal 0.2-2.0 [facility] Comment on above: Performed By: #### C BC #### [facility] [address] [place] [address] Dr. Kristie Marrero EO # 0.2 103/ul Normal 0.0-0.7 [facility] Comment on above: Performed By: #### C BC #### [facility] [address] [place] [address] Dr. Kristie Marrero Eosinophils/100 WBC (Bld) 2.0 % Normal 0.9-7.0 [facility] Comment on above: Performed By: #### C BC #### [facility] [address] [place] [address] Dr. Kristie Marrero Erythrocyte distribution width (RBC) [Ratio] 12.0 % Normal 11.0-15.0 [facility] Comment on above: Performed By: #### C BC #### [facility] [address] [place] [address] Dr. Kristie Marrero Hematocrit (Bld) [Volume fraction] 38.0 % Normal 36.0-48.0 [facility] Comment on above: Performed By: #### C BC #### [facility] [address] [place] [address] Dr. Kristie Marrero Hemoglobin (Bld) [Mass/Vol] 13.3 g/dL Normal 12.0-16.0 [facility] Comment on above: Performed By: #### C BC #### [facility] [address] [place] [address] Dr. Kristie Marrero IG # 0.04 10e3/ul Critically high 0.00-0.03 [facility] Comment on above: Performed By: #### C BC #### [facility] [address] [place] [address] Dr. Kristie Marrero IG % 0.4 % Normal 0.0-0.5 [facility] Comment on above: Performed By: #### C BC #### [facility] [address] [place] [address] Dr. Kristie Marrero LYMPH # 1.3 103/ul Normal 1.2-3.8 [facility] Comment on above: Performed By: #### C BC #### [facility] [address] [place] [address] Dr. Kristie Marrero Lymphocytes/100 WBC (Bld) 12.3 % Critically low 20.5-60.0 [facility] Comment on above: Performed By: #### C BC #### [facility] [address] [place] [address] Dr. Kristie Marrero MANUAL DIFF REQ NO Normal [facility] Comment on above: Performed By: #### C BC #### [facility] [address] [place] [address] Dr. Kristie Marrero MCH (RBC) [Entitic mass] 29.2 pg Normal 26.7-34.0 [facility] Comment on above: Performed By: #### C BC #### [facility] [address] [address] [address] Kristie Marrero MCHC (RBC) [Mass/Vol] 35.0 g/dL Normal 29.9-35.2 [facility] Comment on above: Performed By: #### C BC #### [facility] [address] [address] [address] Kristie Marrero MCV (RBC) [Entitic vol] 83.3 fL Normal 81.0-99.0 [facility] Comment on above: Performed By: #### C BC #### [facility] [address] [place] [address] Dr. Kristie Marrero MONO # 0.7 103/ul Normal 0.3-0.8 [facility] Comment on above: Performed By: #### C BC #### [facility] [address] [place] [address] Dr. Kristie Marrero Monocytes/100 WBC (Bld) 7.0 % Normal 1.7-12.0 [facility] Comment on above: Performed By: #### C BC #### [facility] [address] [place] [address] Dr. Kristie Marrero NEUT # 8.2 103/ul Critically high 1.4-6.5 [facility] Comment on above: Performed By: #### C BC #### [facility] [address] [place] [address] Dr. Kristie Marrero Neutrophils/100 WBC (Bld) 77.8 % Critically high 43.0-75.0 [facility] Comment on above: Performed By: #### C BC #### [facility] [address] [place] [address] Dr. Kristie Marrero Platelet mean volume (Bld) [Entitic vol] 9.5 fL Normal 9.5-13.5 [facility] Comment on above: Performed By: #### C BC #### [facility] [address] [place] [address] Dr. Kristie Marrero PLT 265 103/ul Normal 150-450 [facility] Comment on above: Performed By: #### C BC #### [facility] [address] [place] [address] Dr. Kristie Marrero RBC 4.56 106/ul Normal 4.20-5.40 [facility] Comment on above: Performed By: #### C BC #### [facility] [address] [place] [address] Dr. Kristie Marrero WBC 10.5 103/ul Normal 4.0-11.0 [facility] Comment on above: Performed By: #### C BC #### [facility] [address] [place] [address] Dr. Kristie Marrero PREG HCG QUALon 01-19-2023 , QUAL Negative Normal NEGATIVE [facility] Comment on above: Performed By: #### P REG #### [facility] [address] [place] [address] Dr. Kristie Marrero CHLAMYDIA/GONOCOCCUS RADHA ( AB/URINE/PAPon 11-19-2022 Chlamydia trachomatis, RADHA Negative Normal Negative [facility] Comment on above: Performed By: #### C T/NGNA #### [facility] [address] [place] [address] Dr. Kristie Marrero Neisseria gonorrhoeae, RADHA Negative Normal Negative [facility] Comment on above: Performed By: #### C T/NGNA #### [facility] [address] [place] [address] Dr. Kristie Marrero VAGINITIS/VAGINOSIS DNA PROB Syed 11-18-2022 Jenny species Negative Normal Negative [facility] Comment on above: Performed By: #### V AGINT #### [facility] [address] [place] [address] Dr. Kristie Marrero Gardnerella vaginalis Positive Abnormal Negative [facility] Comment on above: Performed By: #### V AGINT #### [facility] [address] [place] [address] Dr. Kristie Marrero Trichomonas vaginalis Negative Normal Negative [facility] Comment on above: Performed By: #### V AGINT #### [facility] [address] [address] [address] Kristie Marrero Covid-19 PCR ([facility])on 04-10 SARS-CoV-2 (COVID-19) RNA RADHA+probe Ql (Unsp spec) Detected Critically abnormal NOT DETECTED [facility] Comment on above: Result Comment: This test is not yet approved or cleared by the [place] FDA. When there are no FDA-approved or cleared tests available, and other criteria are met, FDA can make tests available under an emergency access mechanism called an Emergency Use Authorization (EUA). The EUA for this test is supported by the [place] of Health and Human Service's (HHS's) declaration [...] used). Performed By: #### C VDTB #### [facility] [id number] Kristie Marrero Vital Signs Date Time Vital Sign Value Performing Clinician Facility 12-20-2023 15:22040 Body height 170.2 cm Summer LOPEZ Work Phone: [facility] [employer] [facility] 12-20-2023 15:22040 Body mass index (BMI) [Ratio] 38.28 kg/m2 Summer Davalos APRN-DIRECT SALES CONSULTANT Work Phone: [facility] [employer] [facility] 12-20-2023 15:22-040 Body temperature 98.29 [degF] Summer Davalos APRN-HARPER Work Phone: [facility] [employer] [facility] 12-20-2023 15:220400 Body weight 110.86 kg Summer Davalos APRN-DIRECT SALES CONSULTANT Work Phone: [facility] [employer] [facility] 12-20-2023 15:22-0400 Diastolic blood pressure 80 mm[Hg] Summer Davalos TOBACCO DRYING MACHINE OPERATOR-DIRECT SALES CONSULTANT Work Phone: [facility] 12-20-2023 15:22-0400 Heart rate 82 /min Summer Davalos TOBACCO DRYING MACHINE OPERATOR-DIRECT SALES CONSULTANT Work Phone: [facility] [employer] [facility] 12-20-2023 15:22-0400 Respiratory rate 18 /min Summer Davalos TOBACCO DRYING MACHINE OPERATOR-DIRECT SALES CONSULTANT [facility] 12-20-2023 15:22-0400 SaO2% (BldA) [Mass fraction] 97 % Summer Davalos TOBACCO DRYING MACHINE OPERATOR-DIRECT SALES CONSULTANT [facility] Phone[facility] 12-20-2023 15:22-0400 Systolic blood pressure 100 mm[Hg] Summer Davalos TOBACCO DRYING MACHINE OPERATOR-DIRECT SALES CONSULTANT Work Phone: [facility] Encounters Encounter Date Encounter Type Care Provider Facility Start: 05-11-2024 End: 05-11-2024 ambulatory MADELEINE PRETTY Not Available Start: 02-17-2024 End: 02-18-2024 ambulatory [facility] Start: 02-17-2024 End: 02-17-2024 ambulatory [facility] Start: 02-15-2024 End: 02-15-2024 ambulatory CARMEN AYLEEN Not Available Start: 02-07-2024 End: 02-07-2024 ambulatory MADELEINE MARIA DE JESUS Not Available Start: 01-19-2024 End: 01-19-2024 Emergency department patient visit [facility] Start: 12-20-2023 End: 12-20-2023 ambulatory [facility] Start: 12-20-2023 End: 12-20-2023 Office outpatient visit 15 minutes Summer Davalos TOBACCO DRYING MACHINE OPERATOR-DIRECT SALES CONSULTANT Work Phone: [facility] Comment on above: PTSD (post-traumatic stress disorder) (Primary Dx); General counseling and advice for contraceptive management; Class 2 obesity due to excess calories without serious comorbidity with body mass index (BMI) of 37.0 to 37.9 in adult Start: 11-21-2023 [facility] Result Encounter Carmen Ayleen [...] 12-20-2023 Adult depression scr eening assessment Summer Edwardemma TOBACCO DRYING MACHINE OPERATOR-DIRECT SALES CONSULTANT Work Phone: Start: 11-21-2023 [facility] PREG QUANT HCG Core y Ayleen DO Work Phone: Start: 11-16-2022 Microscopic observat ion [Identifier] in Cervix by Cyto stain Summer Edwardemma TOBACCO DRYING MACHINE OPERATOR-DIRECT SALES CONSULTANT Work Phone: Plan of Treatment Date Care Activity Detail Author Start: 11-13-2029 DTaP,Tdap and Td Vaccines (7 - Td or Tdap) DTaP,Tdap and Td Vaccines (7 - Td or Tdap) [facility] Start: 11-16-2025 Screening for malign ant neoplasm of cervix Pap Smear [facility] Start: 12-19-2024 Adult BMI Screening Adult BMI Screen ing [facility] Start: 12-19-2024 Depression Screening Depression Scre ening [facility] Start: 12-19-2024 Tobacco Screening Tobacco Screening [facility] Start: 09-14-2024 Adult BMI Follow Up Plan Adult BMI Follow Up Plan [facility] Start: 06-10-2023 Influenza vaccination Influenza Vacc ine (#1) [facility] Immunizations Immunization Date Immunization Notes Care Provider Fa cility 11-13-2019 tetanus toxoid, redu clifford diphtheria toxoid, and acellular pertussis vaccine, adsorbed Summer Davalos TOBACCO DRYING MACHINE OPERATOR-DIRECT SALES CONSULTANT Work Phone: [facility] 01-22-2014 diphtheria, tetanus toxoids and acellular pertussis vaccine, unspecified formulation Summer Davalos TOBACCO DRYING MACHINE OPERATOR-DIRECT SALES CONSULTANT Work Phone: [facility] 06-22-2004 diphtheria, tetanus toxoids and acellular pertussis vaccine Summer Davalos TOBACCO DRYING MACHINE OPERATOR-DIRECT SALES CONSULTANT Work Phone: [facility] 06-22-2004 haemophilus influenz ae type b vaccine, PRP-T conjugate Summer Davalos TOBACCO DRYING MACHINE OPERATOR-DIRECT SALES CONSULTANT Work Phone: [facility] 06-22-2004 pneumococcal conjuga te vaccine, 7 valent Summer Davalos TOBACCO DRYING MACHINE OPERATOR-DIRECT SALES CONSULTANT Work Phone: [facility] 12-20-2003 DTaP-hepatitis B and poliovirus vaccine Summer Davalos TOBACCO DRYING MACHINE OPERATOR-DIRECT SALES CONSULTANT Work Phone: [facility] 12-20-2003 haemophilus influenz ae type b vaccine, PRP-T conjugate Summer Davalos TOBACCO DRYING MACHINE OPERATOR-DIRECT SALES CONSULTANT Work Phone: [facility] 12-20-2003 measles, mumps and rubella virus vaccine Summer Davalos TOBACCO DRYING MACHINE OPERATOR-DIRECT SALES CONSULTANT Work Phone: [facility] 12-20-2003 varicella virus vaccine Summer Davalos TOBACCO DRYING MACHINE OPERATOR-DIRECT SALES CONSULTANT Work Phone: [facility] 11-11-2003 DTaP-hepatitis B and poliovirus vaccine Summer Davalos TOBACCO DRYING MACHINE OPERATOR-DIRECT SALES CONSULTANT Work Phone: [facility] 11-11-2003 haemophilus influenz ae type b vaccine, PRP-T conjugate Summer Davalos TOBACCO DRYING MACHINE OPERATOR-DIRECT SALES CONSULTANT Work Phone: [facility] 11-11-2003 pneumococcal conjuga te vaccine, 7 valent Summer Davalos TOBACCO DRYING MACHINE OPERATOR-DIRECT SALES CONSULTANT Work Phone: [facility] 05-31-2003 DTaP-hepatitis B and poliovirus vaccine Summer Davalos TOBACCO DRYING MACHINE OPERATOR-DIRECT SALES CONSULTANT Work Phone: [facility] 05-31-2003 haemophilus influenz ae type b vaccine, PRP-T conjugate Summer Davalos TOBACCO DRYING MACHINE OPERATOR-DIRECT SALES CONSULTANT Work Phone: [facility] 05-31-2003 pneumococcal conjuga te vaccine, 7 valent Summer Davalos TOBACCO DRYING MACHINE OPERATOR-DIRECT SALES CONSULTANT Work Phone: [facility] 2002 hepatitis B vaccine, pediatric or pediatric/adolescent dosage Summer Davalos TOBACCO DRYING MACHINE OPERATOR-DIRECT SALES CONSULTANT Work Phone: [facility] Payers Date Payer Category Payer Medicaid [id number] 2002 Unknown [id number] 2.16.8 [id number] 2002 Unknown [id number] 2.16.8 [id number] 2002 Unknown [id number] 2.16.8 [id number] 2002 Unknown [id number] 2.16.8 [id number] 2002 Unknown [id number] 2.16.84 [id number] 2002 Unknown [id number] 2.16.84 [id number] 2002 Unknown [id number] 2.16.84 [id number] 1982 Unknown [id number] 2.16.84 [id number] 1982 Unknown [id number] 2.16.84 [id number] 1982 Unknown [id number] 2.16.84 [id number] 1959 Unknown [id number] 1959 Unknown [id number] Social History Date Type Detail Facility Start: 05-19-2023 Tobacco smoking stat us [facility] Tobacco smoking consumption unknown [facility] Start: 05-19-2023 Tobacco use and exposure User of smokeless tobacco [facility] Start: 11-18-2023 End: 12-20-2023 Alcohol intake Lifetime non-drinker (finding) [facility] Start: 11-11-2020 End: 05-19-2023 History of Social function [facility] [facility] Start: 11-11-2020 End: 05-19-2023 Tobacco use panel [facility] Start: 2002 Sex Assigned At Not on file [facility] Start: 01-15-2023 Tobacco smoking stat [facility] Never smoked tobacco [facility] Start: 01-15-2023 Tobacco use and exposure Smokeless tobacco non-user [facility] Frequency of Alcohol Consumption Never [facility] History of Present illness Narrative 12-20-2023 Summer Machado Anoop, TOBACCO DRYING MACHINE OPERATOR-DIRECT SALES CONSULTANT - 12/20/2023 3:20 PM EDT Note Date [...] in adult She has her contraception and change management facilitator care thru Dr Abbasi, she should continue [...] Thrasher 12/20/23 1629 documented in this encounter [facility] Evaluation note Note Date & Type Note Facility Evaluation note Diagnosis PTSD (post-traumatic stress disorder)- Primary Posttraumatic stress disorder General counseling and advice for contraceptive management Class 2 obesity due to excess calories without serious comorbidity with body mass index (BMI) of 37.0 to 37.9 in adult documented in this encounter [facility] Instructions Note Date & Type Note Facility Instructions Not on filedocumented in this en counter [facility] Reason for referral (narrative) Consultation (Routine) - Pending Review Note Date & Type Note Facility Reason for referral (narrati ve) Specialty Diagnoses / Procedures Referred By Vinny stoddard Referred To Contact Diagnoses PTSD (post-traumatic stress disorder) Summer Davalos APRN-FNP [address] [place] [address] Referral ID Status Reason Start Date Expiration Date Visits Requested Visits Authorized [id number] Pending Review Patient Preference 12/20/2023 12/19/2024 1 1 [facility] Summary Purpose Family History No [...] and content) DATE CREATED AUTHOR 01/27/2023 [facility] DATE CREATED AUTHOR AUTHOR'S ORGANIZ ATION 01/20/2024 [facility] DATE CREATED AUTHOR AUTHOR'S ORGANIZ ATION 02/19/2024 [facility] DATE CREATED AUTHOR AUTHOR'S ORGANIZ ATION 02/20/2024 [facility] DATE CREATED AUTHOR AUTHOR'S ORGANIZ ATION 05/13/2024 [facility] [employer] Care Teams (unrecognized sec tion and content) Forensic Document Examiner Relationship Specialty Start Date End Date Reid Jasmine MD PCP - General Family Medicine 08/01/23 Forensic Document Examiner Relationship Specialty Start Date End Date Summer Davalos Rose, TOBACCO DRYING MACHINE OPERATOR-DIRECT SALES CONSULTANT [address] [place] [address] PCP - General Internal Medicine 09/14/23 Reason [...] BE BASED ON THE PRIMARY CLINICAL RECORDS. [employer] provides no warranty or guarantee of the accuracy or completeness of information in this document.
[2024-05-22 15:48] LABS: Bilirubin Urine NEGATIVE (NEGATIVE); Blood Urine NEGATIVE (NEGATIVE); Clarity Urine CLEAR (CLEAR); Color Urine LT. YELLOW (YELLOW); Glucose Urine UA NEGATIVE (NEGATIVE); Ketones Urine NEGATIVE (NEGATIVE); Leukocyte Esterase Urine NEGATIVE (NEGATIVE); Nitrite Urine NEGATIVE (NEGATIVE); Protein Urine NEGATIVE (NEG/TRACE); Specific Gravity Urine 1.015 (1.005-1.025); Urobilinogen Urine 0.2 EU/dL (0.2-1.0)
[2024-05-22 15:50] LABS: Basophils Percent Auto 0.3 % (0.2-2.0); Eosinophils Absolute Auto 0.2 10^3/uL (0.0-0.7); Eosinophils Percent Auto 2.1 % (0.9-7.0); Hemoglobin 12.2 g/dL (12.0-16.0); Immature Granulocytes Abs Auto 0.02 10^3/uL (0.00-0.03); Immature Granulocytes Pct Auto 0.3 % (0.0-0.5); Lymphocytes Absolute Auto 1.9 10^3/uL (1.2-3.8); Lymphocytes Percent Auto 26.1 % (20.5-60.0); Mean Corpuscular HGB Conc 35.9 g/dL (29.9-35.2); Mean Corpuscular Hemoglobin 29.6 pg (26.7-34.0); Mean Corpuscular Volume 82.5 fL (81.0-99.0); Mean Platelet Volume 9.9 fL (9.5-13.5); Monocytes Absolute Auto 0.6 10^3/uL (0.3-0.8); Monocytes Percent Auto 7.8 % (1.7-12.0); Neutrophils Absolute Auto 4.5 10^3/uL (1.4-6.5); Neutrophils Percent Auto 63.4 % (43.0-75.0); Platelet Count 229 10^3/uL (150-450); Red Blood Count 4.12 10^6/uL (4.20-5.40); Red Cell Distribution Width 12.9 % (11.0-15.0); White Blood Count 7.2 10^3/uL (4.0-11.0)
[2024-05-22 15:56] LABS: Bacteria Urine SMALL #/HPF (NONE SEEN); Cast Seen? NONE SEEN #/LPF (NONE SEEN); Crystals Seen? None Seen #/HPF (None Seen); Mucus Urine SMALL (NONE SEEN); RBC Urine 0-2 #/HPF (0-2); Squamous Epithelial Cell Urine FEW #/LPF (NONE/RARE); WBC Urine 0-2 #/HPF (NONE SEEN)
[2024-05-22 15:57] LABS: Urine Culture Indicated YES
[2024-05-22 16:05] LABS: Anion Gap 13.3; BUN Creatinine Ratio 11.3; Calcium 9.2 mg/dL (8.5-10.1); Carbon Dioxide 23.3 mmol/L (21.0-32.0); Chloride 101 mmol/L (98-107); Estimated GFR (African America >60 (>=60); Estimated GFR (Non-African Ame >60 (>=60); Glucose 101 mg/dL (74-106); Potassium 3.6 mmol/L (3.5-5.1); Sodium 134 mmol/L (136-145)
[2024-05-22 17:30] VITALS: BP 114/86; PULSE 83; O2SAT 98
== END 2024-05-22 17:32 | disposition home or self-care (01) ==
PROVIDERS: Emergency Provider Emergency Medicine; PCP Nurse Practitioner Family
DX: O26.892 Other specified pregnancy related conditions, second trimester (principal); R10.9 Unspecified abdominal pain; Z3A.14 14 weeks gestation of pregnancy
CPT/HCPCS: 36415; 76815; 80048; 81001; 85025; 87086; 99284

== ENCOUNTER 2024-05-29 12:13 | Outpatient (OUT) | payer OTHER, SELFPAY ==
--- OUTSIDE RECORDS SUMMARY | 2024-05-29 12:21 | XMS_ITS | CCD ---
Author Organization [facility] ion [facility] Care Team Providers Care Pediatric Associate Name Role Phone BOYDC, DR BEAN Primary [...] Reid Jasmine MD Primary Care Provider Anoop SEARCH ANALYST-TRAILER TRUCK DRIVER, Summer Machado Primary Care Provider SUMMER DAVALOS [...] source) Ondansetron Drug Allergy [facility] Repository (1 source) Ondansetron Drug Allergy 08-01-2023 [facility] Work Phone: (4 sources) Ondansetron; Translations: [ONDANSETRON HCL] Drug Allergy 12-11-2022 [facility] Medications Current Medications Medication Drug Class(es) [...] 24 ABSOLUTE BASOPHIL 0.2 X10E9/L Normal 0.0-0.2 [facility] Comment on above: Performed By: #### C AFTAB, FEPR, 2276-01 #### [facility] ([id number]) [address], [address] [place] [address] ABSOLUTE NEUTROPHIL 3.1 X10E9/L Normal 1.5-6.6 [facility] Comment on above: Performed By: #### C AFTAB, FEPR, 2276-01 #### [facility] ([id number]) [address], [address] [place] [address] Basophils/100 WBC (Bld) 3.0 % Normal [facility] Comment on above: Performed By: #### Terri UGALDE, FEPR, 2276-01 #### [facility] ([id number]) [address], [address] [place] [address] Eosinophils (Bld) [#/Vol] 0.2 10*3/uL Normal 0.0-0.4 [facility] Comment on above: Performed By: #### Terri UGALDE, FEPR, 2276-01 #### [facility] ([id number]) [address], [address] [place] [address] Eosinophils/100 WBC (Bld) 3.4 % Normal [facility] Comment on above: Performed By: #### Terri UGALDE, FEPR, 2276-01 #### [facility] ([id number]) [address], [address] [place] [address] Erythrocyte distribution width (RBC) [Ratio] 13.3 % Normal 11.5-15.0 [facility] Comment on above: Performed By: #### C AFTAB, FEPR, 2276-01 #### [facility] ([id number]) [address], [address] [place] [address] Hematocrit (Bld) [Volume fraction] 40.3 % Normal 35-47 [facility] Comment on above: Performed By: #### Terri UGALDE, FEPR, 6-4 #### [facility] ([id number]) [address] [place] [address] Hemoglobin (Bld) [Mass/Vol] 13.8 g/dL Normal 11.7-15.5 [facility] Comment on above: Performed By: #### Terri UGALDE, FEPR, 2275-4 #### [facility] ([id number]) [address], [address] [place] [address] Lymphocytes (Bld) [#/Vol] 2.1 10*3/uL Normal 1.0-3.5 [facility] Comment on above: Performed By: #### Terri UGALDE, FEPR, 2275- #### [facility] ([id number]) [address], [address] [place] [address] Lymphocytes/100 WBC (Bld) 35.1 % Normal [facility] Comment on above: Performed By: #### Terri UGALDE, FEPR, 2276-01 #### [facility] ([id number]) [address] [place] [address] MCH (RBC) [Entitic mass] 29.0 pg Normal 27-34 [facility] Comment on above: Performed By: #### Terri UGALDE, FEPR, 2275-4 #### [facility] ([id number]) [address], [address] [place] [address] MCHC (RBC) [Mass/Vol] 34.2 g/dL Normal 32-36 [facility] Comment on above: Performed By: #### Terri UGALDE, FEPR, 4 #### [facility] ([id number]) [address], [address] [place] [address] MCV (RBC) [Entitic vol] 85 fL Normal 80-100 [facility] Comment on above: Performed By: #### C BCA, FEPR, 2276-01 #### [facility] ([id number]) [address] [place] [address] Monocytes (Bld) [#/Vol] 0.5 10*3/uL Normal 0-0.9 [facility] Comment on above: Performed By: #### C BCA, FEPR, 2275- #### [facility] ([id number]) [address], [address] [place] [address] Monocytes/100 WBC (Bld) 7.5 % Normal [facility] Comment on above: Performed By: #### C BCA, FEPR, 2276-01 #### [facility] ([id number]) [address] [place] [address] Neutrophils/100 WBC (Bld) 51.0 % Normal [facility] Comment on above: Performed By: #### C BCA, FEPR, 2276-01 #### [facility] ([id number]) [address] [place] [address] Platelet mean volume (Bld) [Entitic vol] 8.8 fL Normal 7-12 [facility] Comment on above: Performed By: #### Terri BCA, FEPR, 2276-01 #### [facility] ([id number]) [address], [address] [place] [address] Platelets (Bld) [#/Vol] 272 10*3/uL Normal 150-450 [facility] Comment on above: Performed By: #### C BCA, FEPR, 2275-4 #### [facility] ([id number]) [address], [address] [place] [address] RBC COUNT 4.75 X10E12/L Normal 3.80-5.20 [facility] Comment on above: Performed By: #### C BCA, FEPR, 2275- #### [facility] ([id number]) [address], [facility] [address] [place] [address] WBC (Bld) [#/Vol] 6.1 10*3/uL Normal 4.0-11.0 [facility] Comment on above: Performed By: #### C BCA, FEPR, 6-4 #### [facility] ([id number]) [address], [address] [address] FERRITINon 02-17-2024 Ferritin [Mass/Vol] 50 ng/mL Normal 11-307 [facility] Comment on above: Performed By: #### C BCA, FEPR, 6-4 #### [facility] ([id number]) [address], [facility] [address] [place] [address] IRON PROFILEon 02-17-2024 Iron [Mass/Vol] 59 ug/dL Normal 50-170 [facility] Comment on above: Performed By: #### C BCA, FEPR, 6-4 #### [facility] ([id number]) [address], [address] [address] IRON BINDING 384 ug/dL Normal 250-425 [facility] Comment on above: Performed By: #### C BCA, FEPR, 6-4 #### [facility] ([id number]) [address], [address] [address] IRON SATURATION 15 % SATURATION Normal 15-50 [facility] Comment on above: Performed By: #### C BCA, FEPR, 6-4 #### [facility] ([id number]) [address], [facility] [address] [place] [address] HCG ( test) Ql (U)o n 01-19-2024 Beta HCG ( test) Ql (U) Negative Normal NEG [facility] Comment on above: Performed By: #### 2 106-3 #### [facility] ([id number]) [address] [place] [address] [place] [address] URN MACROSCOPIC NURon 2023 BILIRUBIN SUDHIR Negative Normal NEG [facility] Comment on above: Performed By: #### N UM #### [facility] ([id number]) [address] [place] [address] [place] [address] BLOOD/HGB SUDHIR Trace Abnormal NEG [facility] Comment on above: Performed By: #### N UM #### [facility] ([id number]) [address] [place] [address] [place] [address] GLUCOSE SUDHIR Negative Normal NEG [facility] Comment on above: Performed By: #### N UM #### [facility] ([id number]) [address] [place] [address] [place] [address] KETONES SUDHIR Negative Normal NEG [facility] Comment on above: Performed By: #### N UM #### [facility] ([id number]) [address] [place] [address] [place] [address] LEUKOCYTE ESTERASE SUDHIR Negative Normal NEG [facility] Comment on above: Performed By: #### N UM #### [facility] ([id number]) [address] [place] [address] [place] [address] NITRITE SUDHIR Negative Normal NEG [facility] Comment on above: Performed By: #### N UM #### [facility] ([id number]) [address] [place] [address] [place] [address] PH SUDHIR 6.0 Normal 5.0-8.5 [facility] Comment on above: Performed By: #### N UM #### [facility] ([id number]) [address] [place] [address] [place] [address] PROTEIN SUDHIR Negative Normal NEG [facility] Comment on above: Performed By: #### N UM #### [facility] ([id number]) [address] [place] [address], [place] [address] SPECIFIC GRAVITY SUDHIR >=1.030 Normal 1.003-1.035 [facility] Comment on above: Performed By: #### N UM #### [facility] ([id number]) [address] [place] [address] UROBILINOGEN SUHDIR 0.2 eu/dL Normal <1.1 [facility] Comment on above: Performed By: #### N UM #### [facility] ([id number]) [address] [place] [address] TBH PREG QUANT HCGon 024 HCG QUANTITATIVE <1 mIU/mL [facility] Comment on above: 5-50 0.2-1 WEEK 50-500 1-2 WEEKS 100-5,000 2-3 WEEKS 500-10,000 3-4 WEEKS 1,000-50,000 4-5 WEEKS 10,000-100,000 5-6 WEEKS 15,000-200,000 6-8 WEEKS 10,000-100,000 2-3 MONTHS [facility] CBC AUTO DIFFon 01-19-2023 BASO # 0.1 103/ul Normal 0.0-0.1 [facility] Comment on above: Performed By: #### C BC #### [facility] [address] [place] [address] Dr. Kristie Marrero Basophils/100 WBC (Bld) 0.5 % Normal 0.2-2.0 [facility] Comment on above: Performed By: #### C BC #### [facility] [address] [place] [address] Dr. Kristie Marrero EO # 0.2 103/ul Normal 0.0-0.7 [facility] Comment on above: Performed By: #### C BC #### [facility] [address] [place] [address] Dr. Kristie Marrero Eosinophils/100 WBC (Bld) 2.0 % Normal 0.9-7.0 [facility] Comment on above: Performed By: #### C BC #### [facility] [address] [place] [address] Dr. Kristie Marrero Erythrocyte distribution width (RBC) [Ratio] 12.0 % Normal 11.0-15.0 [facility] Comment on above: Performed By: #### C BC #### [facility] [address] [place] [address] Dr. Kristie Marrero Hematocrit (Bld) [Volume fraction] 38.0 % Normal 36.0-48.0 [facility] Comment on above: Performed By: #### C BC #### [facility] [address] [place] [address] Dr. Kristie Marrero Hemoglobin (Bld) [Mass/Vol] 13.3 g/dL Normal 12.0-16.0 [facility] Comment on above: Performed By: #### C BC #### [facility] [address] [place] [address] Dr. Kristie Marrero IG # 0.04 10e3/ul Critically high 0.00-0.03 [facility] Comment on above: Performed By: #### C BC #### [facility] [address] [place] [address] Dr. Kristie Marrero IG % 0.4 % Normal 0.0-0.5 [facility] Comment on above: Performed By: #### C BC #### [facility] [address] [place] [address] Dr. Kristie Marrero LYMPH # 1.3 103/ul Normal 1.2-3.8 [facility] Comment on above: Performed By: #### C BC #### [facility] [address] [place] [address] Dr. Kristie Marrero Lymphocytes/100 WBC (Bld) 12.3 % Critically low 20.5-60.0 [facility] Comment on above: Performed By: #### C BC #### [facility] [address] [place] [address] Dr. Kristie Marrero MANUAL DIFF REQ NO Normal [facility] Comment on above: Performed By: #### C BC #### [facility] [address] [place] [address] Dr. Kristie Marrero MCH (RBC) [Entitic mass] 29.2 pg Normal 26.7-34.0 [facility] Comment on above: Performed By: #### C BC #### [facility] [address] [address] [address] Kristie Marrero MCHC (RBC) [Mass/Vol] 35.0 g/dL Normal 29.9-35.2 [facility] Comment on above: Performed By: #### C BC #### [facility] [address] [address] [address] Kristie Marrero MCV (RBC) [Entitic vol] 83.3 fL Normal 81.0-99.0 [facility] Comment on above: Performed By: #### C BC #### [facility] [address] [place] [address] Dr. Kristie Marrero MONO # 0.7 103/ul Normal 0.3-0.8 [facility] Comment on above: Performed By: #### C BC #### [facility] [address] [place] [address] Dr. Kristie Marrero Monocytes/100 WBC (Bld) 7.0 % Normal 1.7-12.0 [facility] Comment on above: Performed By: #### C BC #### [facility] [address] [place] [address] Dr. Kristie Marrero NEUT # 8.2 103/ul Critically high 1.4-6.5 [facility] Comment on above: Performed By: #### C BC #### [facility] [address] [place] [address] Dr. Kristie Marrero Neutrophils/100 WBC (Bld) 77.8 % Critically high 43.0-75.0 [facility] Comment on above: Performed By: #### C BC #### [facility] [address] [place] [address] Dr. Kristie Marrero Platelet mean volume (Bld) [Entitic vol] 9.5 fL Normal 9.5-13.5 [facility] Comment on above: Performed By: #### C BC #### [facility] [address] [place] [address] Dr. Kristie Marrero PLT 265 103/ul Normal 150-450 [facility] Comment on above: Performed By: #### C BC #### [facility] [address] [place] [address] Dr. Kristie Marrero RBC 4.56 106/ul Normal 4.20-5.40 [facility] Comment on above: Performed By: #### C BC #### [facility] [address] [place] [address] Dr. Kristie Marrero WBC 10.5 103/ul Normal 4.0-11.0 [facility] Comment on above: Performed By: #### C BC #### [facility] [address] [place] [address] Dr. Kristie Marrero PREG HCG QUALon 01-19-2023 , QUAL Negative Normal NEGATIVE [facility] Comment on above: Performed By: #### P REG #### [facility] [address] [place] [address] Dr. Kristie Marrero CHLAMYDIA/GONOCOCCUS RADHA ( AB/URINE/PAPon 11-19-2022 Chlamydia trachomatis, RADHA Negative Normal Negative [facility] Comment on above: Performed By: #### C T/NGNA #### [facility] [address] [place] [address] Dr. Kristie Marrero Neisseria gonorrhoeae, RADHA Negative Normal Negative [facility] Comment on above: Performed By: #### C T/NGNA #### [facility] [address] [place] [address] Dr. Kristie Marrero VAGINITIS/VAGINOSIS DNA PROB Syed 11-18-2022 Jenny species Negative Normal Negative [facility] Comment on above: Performed By: #### V AGINT #### [facility] [address] [place] [address] Dr. Kristie Marrero Gardnerella vaginalis Positive Abnormal Negative [facility] Comment on above: Performed By: #### V AGINT #### [facility] [address] [place] [address] Dr. Kristie Marrero Trichomonas vaginalis Negative Normal Negative [facility] Comment on above: Performed By: #### V AGINT #### [facility] [address] [address] [address] Kristie Marrero Covid-19 PCR ([facility])on 04-10 SARS-CoV-2 (COVID-19) RNA RADHA+probe Ql (Unsp spec) Detected Critically abnormal NOT DETECTED [facility] Comment on above: Result Comment: This test is not yet approved or cleared by the [place] FDA. When there are no FDA-approved or cleared tests available, and other criteria are met, FDA can make tests available under an emergency access mechanism called an Emergency Use Authorization (EUA). The EUA for this test is supported by the [place] of Health and Human Service's (HHS's) declaration [...] used). Performed By: #### C VDTB #### [facility] [id number] Kristie Marrero Vital Signs Date Time Vital Sign Value Performing Clinician Facility 12-20-2023 15:22040 Body height 170.2 cm Summer LOPEZ Work Phone: [facility] 12-20-2023 15:22040 Body mass index (BMI) [Ratio] 38.28 kg/m2 Summer Davalos APRN-TRAILER TRUCK DRIVER Work Phone: [facility] 12-20-2023 15:22-040 Body temperature 98.29 [degF] Summer Davalos APRN-HARPER Work Phone: [facility] 12-20-2023 15:220400 Body weight 110.86 kg Summer Davalos APRN-TRAILER TRUCK DRIVER Work Phone: [facility] 12-20-2023 15:22-0400 Diastolic blood pressure 80 mm[Hg] Summer Davalos SEARCH ANALYST-TRAILER TRUCK DRIVER [facility] Phone[facility] 12-20-2023 15:22-0400 Heart rate 82 /min Summer Davalos SEARCH ANALYST-TRAILER TRUCK DRIVER Work Phone: [facility] 12-20-2023 15:22-0400 Respiratory rate 18 /min Summer Davalos SEARCH ANALYST-TRAILER TRUCK DRIVER Work Phone: [facility] 12-20-2023 15:22-0400 SaO2% (BldA) [Mass fraction] 97 % Summer Davalos SEARCH ANALYST-TRAILER TRUCK DRIVER Work Phone: [facility] 12-20-2023 15:22-0400 Systolic blood pressure 100 mm[Hg] Summer Davalos SEARCH ANALYST-TRAILER TRUCK DRIVER Work Phone: [facility] Encounters Encounter Date Encounter Type Care Provider Facility Start: 05-11-2024 End: 05-11-2024 ambulatory MADELEINE PRETTY Not Available Start: 02-17-2024 End: 02-18-2024 ambulatory [facility] Start: 02-17-2024 End: 02-17-2024 ambulatory [facility] Start: 02-15-2024 End: 02-15-2024 ambulatory CARMEN AYLEEN Not Available Start: 02-07-2024 End: 02-07-2024 ambulatory MADELEINE MARIA DE JESUS Not Available Start: 01-19-2024 End: 01-19-2024 Emergency department patient visit [facility] Start: 12-20-2023 End: 12-20-2023 ambulatory [facility] Start: 12-20-2023 End: 12-20-2023 Office outpatient visit 15 minutes Summer Davalos SEARCH ANALYST-TRAILER TRUCK DRIVER Work Phone: [facility] Comment [...] Adult depression scr eening assessment Summer Edwardemma SEARCH ANALYST-TRAILER TRUCK DRIVER Work Phone: Start: 11-21-2023 [facility] PREG QUANT HCG Core y Ayleen DO Work Phone: Start: 11-16-2022 Microscopic observat ion [Identifier] in Cervix by Cyto stain Summer Edwardemma SEARCH ANALYST-TRAILER TRUCK DRIVER Work Phone: Plan of Treatment Date Care Activity Detail Author Start: 11-13-2029 DTaP,Tdap and Td Vaccines (7 - Td or Tdap) DTaP,Tdap and Td Vaccines (7 - Td or Tdap) [facility] Start: 11-16-2025 Screening for malign ant neoplasm of cervix Pap Smear [facility] Start: 12-19-2024 Adult BMI Screening Adult BMI Screen ing [facility] Start: 12-19-2024 Depression Screening Depression Scre ening [facility] Start: 12-19-2024 Tobacco Screening Tobacco Screening [facility] Start: 09-14-2024 Adult BMI Follow Up Plan Adult BMI Follow Up Plan [facility] Start: 06-10-2023 Influenza vaccination Influenza Vacc ine (#1) [facility] Immunizations Immunization Date Immunization Notes Care Provider Fa cility 11-13-2019 tetanus toxoid, redu clifford diphtheria toxoid, and acellular pertussis vaccine, adsorbed Summer Davalos SEARCH ANALYST-TRAILER TRUCK DRIVER Work Phone: [facility] 01-22-2014 diphtheria, tetanus toxoids and acellular pertussis vaccine, unspecified formulation Summer Davalos SEARCH ANALYST-TRAILER TRUCK DRIVER Work Phone: [facility] 06-22-2004 diphtheria, tetanus toxoids and acellular pertussis vaccine Summer Davalos SEARCH ANALYST-TRAILER TRUCK DRIVER Work Phone: [facility] 06-22-2004 haemophilus influenz ae type b vaccine, PRP-T conjugate Summer Davalos SEARCH ANALYST-TRAILER TRUCK DRIVER Work Phone: [facility] 06-22-2004 pneumococcal conjuga te vaccine, 7 valent Summer Davalos SEARCH ANALYST-TRAILER TRUCK DRIVER Work Phone: [facility] 12-20-2003 DTaP-hepatitis B and poliovirus vaccine Summer Davalos SEARCH ANALYST-TRAILER TRUCK DRIVER Work Phone: [facility] 12-20-2003 haemophilus influenz ae type b vaccine, PRP-T conjugate Summer Davalos SEARCH ANALYST-TRAILER TRUCK DRIVER Work Phone: [facility] 12-20-2003 measles, mumps and rubella virus vaccine Summer Davalos SEARCH ANALYST-TRAILER TRUCK DRIVER Work Phone: [facility] 12-20-2003 varicella virus vaccine Summer Davalos SEARCH ANALYST-TRAILER TRUCK DRIVER Work Phone: [facility] 11-11-2003 DTaP-hepatitis B and poliovirus vaccine Summer Davalos SEARCH ANALYST-TRAILER TRUCK DRIVER Work Phone: [facility] 11-11-2003 haemophilus influenz ae type b vaccine, PRP-T conjugate Summer Davalos SEARCH ANALYST-TRAILER TRUCK DRIVER Work Phone: [facility] 11-11-2003 pneumococcal conjuga te vaccine, 7 valent Summer Davalos SEARCH ANALYST-TRAILER TRUCK DRIVER Work Phone: [facility] 05-31-2003 DTaP-hepatitis B and poliovirus vaccine Summer Davalos SEARCH ANALYST-TRAILER TRUCK DRIVER Work Phone: [facility] 05-31-2003 haemophilus influenz ae type b vaccine, PRP-T conjugate Summer Davalos SEARCH ANALYST-TRAILER TRUCK DRIVER Work Phone: [facility] 05-31-2003 pneumococcal conjuga te vaccine, 7 valent Summer Davalos SEARCH ANALYST-TRAILER TRUCK DRIVER Work Phone: [facility] 2002 hepatitis B vaccine, pediatric or pediatric/adolescent dosage Summer Daavlos SEARCH ANALYST-TRAILER TRUCK DRIVER Work Phone: [facility] Payers Date Payer Category Payer Medicaid [id number] 2002 Unknown [id number] 2.16.8 [id number] 2002 Unknown [id number] 2.16.8 [id number] 2002 Unknown [id number] 2.16.8 [id number] 2002 Unknown [id number] 2.16.8 [id number] 2002 Unknown [id number] 2.16.84 [id number] 2002 Unknown [id number] 2.16.84 [id number] 2002 Unknown [id number] 2.16.84 [id number] 1982 Unknown [id number] 2.16.84 [id number] 1982 Unknown [id number] 2.16.84 [id number] 1982 Unknown [id number] 2.16.84 [id number] 1959 Unknown [id number] 1959 Unknown [id number] Social History Date Type Detail Facility Start: 05-19-2023 Tobacco smoking stat us [facility] Tobacco smoking consumption unknown [facility] Start: 05-19-2023 Tobacco use and exposure User of smokeless tobacco [facility] Start: 11-18-2023 End: 12-20-2023 Alcohol intake Lifetime non-drinker (finding) [facility] Start: 11-11-2020 End: 05-19-2023 History of Social function [facility] Start: 11-11-2020 End: 05-19-2023 Tobacco use panel [facility] Start: 2000 Sex Assigned At Not on file [facility] Start: 01-15-2023 Tobacco smoking stat [facility] Never smoked tobacco [facility] Start: 01-15-2023 Tobacco use and exposure Smokeless tobacco non-user [facility] Frequency of Alcohol Consumption Never [facility] History of Present illness Narrative 12-20-2023 Summer Machado Anoop, SEARCH ANALYST-TRAILER TRUCK DRIVER - 12/20/2023 3:20 PM EDT Note Date [...] in adult She has her contraception and oil speculator care thru Dr Abbasi, she should continue [...] Thrasher 12/20/23 1629 documented in this encounter [facility] Evaluation note Note Date & Type Note Facility Evaluation note Diagnosis PTSD (post-traumatic stress disorder)- Primary Posttraumatic stress disorder General counseling and advice for contraceptive management Class 2 obesity due to excess calories without serious comorbidity with body mass index (BMI) of 37.0 to 37.9 in adult documented in this encounter [facility] Instructions Note Date & Type Note Facility Instructions Not on filedocumented in this en counter [facility] Reason for referral (narrative) Consultation (Routine) - Pending Review Note Date & Type Note Facility Reason for referral (narrati ve) Specialty Diagnoses / Procedures Referred By Vinny stoddard Referred To Contact Diagnoses PTSD (post-traumatic stress disorder) Summer Davalos APRN-FNP [address] [place] [address] Referral ID Status Reason Start Date Expiration Date Visits Requested Visits Authorized [id number] Pending Review Patient Preference 12/20/2023 12/19/2024 1 1 [facility] Summary Purpose Family History No Family [...] and content) DATE CREATED AUTHOR 01/27/2023 [facility] DATE CREATED AUTHOR AUTHOR'S ORGANIZ ATION 01/20/2024 [facility] DATE CREATED AUTHOR AUTHOR'S ORGANIZ ATION 02/19/2024 [facility] DATE CREATED AUTHOR AUTHOR'S ORGANIZ ATION 02/20/2024 [facility] DATE CREATED AUTHOR AUTHOR'S ORGANIZ ATION 05/13/2024 [facility] EPIC Care Teams (unrecognized sec tion and content) Pediatric Associate Relationship Specialty Start Date End Date Reid Jasmine MD PCP - General Family Medicine 08/01/23 Pediatric Associate Relationship Specialty Start Date End Date Summer Davalos Rose, SEARCH ANALYST-[employer]ER TRUCK [employer]IVER [address] [place] [address] PCP - General Internal Medicine 09/14/23 Reason [...] BE BASED ON THE PRIMARY CLINICAL RECORDS. [employer] provides no warranty or guarantee of the accuracy or completeness of information in this document.
[2024-05-31 01:17] LABS: AFP Value 27.6 ng/mL (.); Gest. Age on Collection Date 15.6 weeks (.); Gestat. Age Based On Ultrasound (.); Insulin Dep Diabetes No (.); Maternal Age At EDD 21.9 yr (.); OSBR Risk 1 IN 7137 (.); Results Report (.)
== END 2024-05-29 12:14 | disposition home or self-care (01) ==
LOC: LAB 12:15
PROVIDERS: PCP Nurse Practitioner Family; Visit Provider Obstetrics & Gynecology
DX: Z34.92 Encounter for supervision of normal pregnancy, unspecified, second trimester (principal)
CPT/HCPCS: 36415; 82105

== ENCOUNTER 2024-05-29 20:03 | Outpatient (REF) | payer OTHER, SELFPAY ==
--- OUTSIDE RECORDS SUMMARY | 2024-05-29 20:07 | XMS_ITS | CCD ---
Author Organization [facility] ion [facility] Care Team Providers Care Speech Language Pathologist Prn Name Role Phone BOYDC, DR BEAN Primary [...] Reid Jasmine MD Primary Care Provider Anoop SUPPLY TEACHER-STATION REPAIRER, Summer Machado Primary Care Provider SUMMER DAVALOS [...] Facility (1 source) Ondansetron Drug Allergy [facility] Repository (1 source) Ondansetron Drug Allergy 08-01-2023 [facility] Work Phone: (4 sources) Ondansetron; Translations: [ONDANSETRON HCL] Drug Allergy 12-11-2022 Counts include 234 beds at the [facility] Medications Current Medications Medication Drug Class(es) Dates [...] 24 ABSOLUTE BASOPHIL 0.2 X10E9/L Normal 0.0-0.2 [facility] Comment on above: Performed By: #### C AFTAB, FEPR, 2276-01 #### [facility] ([id number]) [address], [address] [place] [address] ABSOLUTE NEUTROPHIL 3.1 X10E9/L Normal 1.5-6.6 [facility] Comment on above: Performed By: #### C AFTAB, FEPR, 2276-01 #### [facility] ([id number]) [address], [address] [place] [address] Basophils/100 WBC (Bld) 3.0 % Normal [facility] Comment on above: Performed By: #### Terri UGALDE, FEPR, 2276-01 #### [facility] ([id number]) [address], [address] [place] [address] Eosinophils (Bld) [#/Vol] 0.2 10*3/uL Normal 0.0-0.4 [facility] Comment on above: Performed By: #### Terri UGALDE, FEPR, 2276-01 #### [facility] ([id number]) [address], [address] [place] [address] Eosinophils/100 WBC (Bld) 3.4 % Normal [facility] Comment on above: Performed By: #### Terri UGALDE, FEPR, 2276-01 #### [facility] ([id number]) [address], [address] [place] [address] Erythrocyte distribution width (RBC) [Ratio] 13.3 % Normal 11.5-15.0 [facility] Comment on above: Performed By: #### C AFTAB, FEPR, 2276-01 #### [facility] ([id number]) [address], [address] [place] [address] Hematocrit (Bld) [Volume fraction] 40.3 % Normal 35-47 [facility] Comment on above: Performed By: #### Terri UGALDE, FEPR, 6-4 #### [facility] ([id number]) [address], [address] [place] [address] Hemoglobin (Bld) [Mass/Vol] 13.8 g/dL Normal 11.7-15.5 [facility] Comment on above: Performed By: #### Terri UGALDE, FEPR, 2275-4 #### [facility] ([id number]) [address], [address] [place] [address] Lymphocytes (Bld) [#/Vol] 2.1 10*3/uL Normal 1.0-3.5 [facility] Comment on above: Performed By: #### Terri UGALDE, FEPR, 2275- #### [facility] ([id number]) [address], [address] [place] [address] Lymphocytes/100 WBC (Bld) 35.1 % Normal [facility] Comment on above: Performed By: #### Terri UGALDE, FEPR, 2276-01 #### [facility] ([id number]) [address], [address] [place] [address] MCH (RBC) [Entitic mass] 29.0 pg Normal 27-34 [facility] Comment on above: Performed By: #### Terri UGALDE, FEPR, 2275-4 #### [facility] ([id number]) [address], [address] [place] [address] MCHC (RBC) [Mass/Vol] 34.2 g/dL Normal 32-36 [facility] Comment on above: Performed By: #### Terri UGALDE, FEPR, 4 #### [facility] ([id number]) [address], [address] [place] [address] MCV (RBC) [Entitic vol] 85 fL Normal 80-100 [facility] Comment on above: Performed By: #### C BCA, FEPR, 2276-01 #### [facility] ([id number]) [address], [address] [place] [address] Monocytes (Bld) [#/Vol] 0.5 10*3/uL Normal 0-0.9 [facility] Comment on above: Performed By: #### C BCA, FEPR, 2275- #### [facility] ([id number]) [address], [address] [place] [address] Monocytes/100 WBC (Bld) 7.5 % Normal [facility] Comment on above: Performed By: #### C BCA, FEPR, 2276-01 #### [facility] ([id number]) [address], [address] [place] [address] Neutrophils/100 WBC (Bld) 51.0 % Normal [facility] Comment on above: Performed By: #### C BCA, FEPR, 2276-01 #### [facility] ([id number]) [address] [place] [address] Platelet mean volume (Bld) [Entitic vol] 8.8 fL Normal 7-12 [facility] Comment on above: Performed By: #### Terri BCA, FEPR, 2276-01 #### [facility] ([id number]) [address], [address] [place] [address] Platelets (Bld) [#/Vol] 272 10*3/uL Normal 150-450 [facility] Comment on above: Performed By: #### C BCA, FEPR, 2275-4 #### [facility] ([id number]) [address], [address] [place] [address] RBC COUNT 4.75 X10E12/L Normal 3.80-5.20 [facility] Comment on above: Performed By: #### C BCA, FEPR, 2275- #### [facility] ([id number]) [address], [facility] [address] [place] [address] WBC (Bld) [#/Vol] 6.1 10*3/uL Normal 4.0-11.0 [facility] Comment on above: Performed By: #### C BCA, FEPR, 6-4 #### [facility] ([id number]) [address], [address] [address] FERRITINon 02-17-2024 Ferritin [Mass/Vol] 50 ng/mL Normal 11-307 [facility] Comment on above: Performed By: #### C BCA, FEPR, 6-4 #### [facility] ([id number]) [address], [facility] [address] [place] [address] IRON PROFILEon 02-17-2024 Iron [Mass/Vol] 59 ug/dL Normal 50-170 [facility] Comment on above: Performed By: #### C BCA, FEPR, 6-4 #### [facility] ([id number]) [address], [address] [address] IRON BINDING 384 ug/dL Normal 250-425 [facility] Comment on above: Performed By: #### C BCA, FEPR, 6-4 #### [facility] ([id number]) [address], [address] [address] IRON SATURATION 15 % SATURATION Normal 15-50 [facility] Comment on above: Performed By: #### C BCA, FEPR, 6-4 #### [facility] ([id number]) [address], [facility] [address] [place] [address] HCG ( test) Ql (U)o n 01-19-2024 Beta HCG ( test) Ql (U) Negative Normal NEG [facility] Comment on above: Performed By: #### 2 106-3 #### [facility] ([id number]) [address] [place] [address] [place] [address] URN MACROSCOPIC NURon 2023 BILIRUBIN SUDHIR Negative Normal NEG [facility] Comment on above: Performed By: #### N UM #### [facility] ([id number]) [address] [place] [address] [place] [address] BLOOD/HGB SUDHIR Trace Abnormal NEG [facility] Comment on above: Performed By: #### N UM #### [facility] ([id number]) [address] [place] [address] [place] [address] GLUCOSE SUDHIR Negative Normal NEG [facility] Comment on above: Performed By: #### N UM #### [facility] ([id number]) [address] [place] [address] [place] [address] KETONES SUDHIR Negative Normal NEG [facility] Comment on above: Performed By: #### N UM #### [facility] ([id number]) [address] [place] [address] [place] [address] LEUKOCYTE ESTERASE SUDHIR Negative Normal NEG [facility] Comment on above: Performed By: #### N UM #### [facility] ([id number]) [address] [place] [address] [place] [address] NITRITE SUDHIR Negative Normal NEG [facility] Comment on above: Performed By: #### N UM #### [facility] ([id number]) [address] [place] [address] [place] [address] PH SUDHIR 6.0 Normal 5.0-8.5 [facility] Comment on above: Performed By: #### N UM #### [facility] ([id number]) [address] [place] [address] [place] [address] PROTEIN SUDHIR Negative Normal NEG [facility] Comment on above: Performed By: #### N UM #### [facility] ([id number]) [address] [place] [address], [place] [address] SPECIFIC GRAVITY SUDHIR >=1.030 Normal 1.003-1.035 [facility] Comment on above: Performed By: #### N UM #### [facility] ([id number]) [address] [place] [address] UROBILINOGEN SUDHIR 0.2 eu/dL Normal <1.1 [facility] Comment on above: Performed By: #### N UM #### [facility] ([id number]) [address] [place] [address] [facility]H PREG QUANT HCGon 024 HCG QUANTITATIVE <1 mIU/mL [facility] Comment on above: 5-50 0.2-1 WEEK 50-500 1-2 WEEKS 100-5,000 2-3 WEEKS 500-10,000 3-4 WEEKS 1,000-50,000 4-5 WEEKS 10,000-100,000 5-6 WEEKS 15,000-200,000 6-8 WEEKS 10,000-100,000 2-3 MONTHS [facility] CBC AUTO DIFFon 01-19-2023 BASO # 0.1 103/ul Normal 0.0-0.1 [facility] Comment on above: Performed By: #### C BC #### [facility] [address] [place] [address] Dr. Kristie Marrero Basophils/100 WBC (Bld) 0.5 % Normal 0.2-2.0 [facility] Comment on above: Performed By: #### C BC #### [facility] [address] [place] [address] Dr. Kristie Marrero EO # 0.2 103/ul Normal 0.0-0.7 [facility] Comment on above: Performed By: #### C BC #### [facility] [address] [place] [address] Dr. Kristie Marrero Eosinophils/100 WBC (Bld) 2.0 % Normal 0.9-7.0 [facility] Comment on above: Performed By: #### C BC #### [facility] [address] [place] [address] Dr. Kristie Marrero Erythrocyte distribution width (RBC) [Ratio] 12.0 % Normal 11.0-15.0 [facility] Comment on above: Performed By: #### C BC #### [facility] [address] [place] [address] Dr. Kristie Marrero Hematocrit (Bld) [Volume fraction] 38.0 % Normal 36.0-48.0 [facility] Comment on above: Performed By: #### C BC #### [facility] [address] [place] [address] Dr. Kristie Marrero Hemoglobin (Bld) [Mass/Vol] 13.3 g/dL Normal 12.0-16.0 [facility] Comment on above: Performed By: #### C BC #### [facility] [address] [place] [address] Dr. Kristie Marrero IG # 0.04 10e3/ul Critically high 0.00-0.03 [facility] Comment on above: Performed By: #### C BC #### [facility] [address] [place] [address] Dr. Kristie Marrero IG % 0.4 % Normal 0.0-0.5 [facility] Comment on above: Performed By: #### C BC #### [facility] [address] [place] [address] Dr. Kristie Marrero LYMPH # 1.3 103/ul Normal 1.2-3.8 [facility] Comment on above: Performed By: #### C BC #### [facility] [address] [place] [address] Dr. Kristie Marrero Lymphocytes/100 WBC (Bld) 12.3 % Critically low 20.5-60.0 [facility] Comment on above: Performed By: #### C BC #### [facility] [address] [place] [address] Dr. Kristie Marrero MANUAL DIFF REQ NO Normal [facility] Comment on above: Performed By: #### C BC #### [facility] [address] [place] [address] Dr. Kristie Marrero MCH (RBC) [Entitic mass] 29.2 pg Normal 26.7-34.0 [facility] Comment on above: Performed By: #### C BC #### [facility] [address] [address] [address] Kristie Marrero MCHC (RBC) [Mass/Vol] 35.0 g/dL Normal 29.9-35.2 [facility] Comment on above: Performed By: #### C BC #### [facility] [address] [address] [address] Kristie Marrero MCV (RBC) [Entitic vol] 83.3 fL Normal 81.0-99.0 [facility] Comment on above: Performed By: #### C BC #### [facility] [address] [place] [address] Dr. Kristie Marrero MONO # 0.7 103/ul Normal 0.3-0.8 [facility] Comment on above: Performed By: #### C BC #### [facility] [address] [place] [address] Dr. Kristie Marrero Monocytes/100 WBC (Bld) 7.0 % Normal 1.7-12.0 [facility] Comment on above: Performed By: #### C BC #### [facility] [address] [place] [address] Dr. Kristie Marrero NEUT # 8.2 103/ul Critically high 1.4-6.5 [facility] Comment on above: Performed By: #### C BC #### [facility] [address] [place] [address] Dr. Kristie Marrero Neutrophils/100 WBC (Bld) 77.8 % Critically high 43.0-75.0 [facility] Comment on above: Performed By: #### C BC #### [facility] [address] [place] [address] Dr. Kristie Marrero Platelet mean volume (Bld) [Entitic vol] 9.5 fL Normal 9.5-13.5 [facility] Comment on above: Performed By: #### C BC #### [facility] [address] [place] [address] Dr. Kristie Marrero PLT 265 103/ul Normal 150-450 [facility] Comment on above: Performed By: #### C BC #### [facility] [address] [place] [address] Dr. Kristie Marrero RBC 4.56 106/ul Normal 4.20-5.40 [facility] Comment on above: Performed By: #### C BC #### [facility] [address] [place] [address] Dr. Kristie Marrero WBC 10.5 103/ul Normal 4.0-11.0 [facility] Comment on above: Performed By: #### C BC #### [facility] [address] [place] [address] Dr. Kristie Marrero PREG HCG QUALon 01-19-2023 , QUAL Negative Normal NEGATIVE [facility] Comment on above: Performed By: #### P REG #### [facility] [address] [place] [address] Dr. Kristie Marrero CHLAMYDIA/GONOCOCCUS RADHA ( AB/URINE/PAPon 11-19-2022 Chlamydia trachomatis, RADHA Negative Normal Negative [facility] Comment on above: Performed By: #### C T/NGNA #### [facility] [address] [place] [address] Dr. Kristie Marrero Neisseria gonorrhoeae, RADHA Negative Normal Negative [facility] Comment on above: Performed By: #### C T/NGNA #### [facility] [address] [place] [address] Dr. Kristie Marrero VAGINITIS/VAGINOSIS DNA PROB Syed 11-18-2022 Jenny species Negative Normal Negative [facility] Comment on above: Performed By: #### V AGINT #### [facility] [address] [place] [address] Dr. Kristie Marrero Gardnerella vaginalis Positive Abnormal Negative [facility] Comment on above: Performed By: #### V AGINT #### [facility] [address] [place] [address] Dr. Kristie Marrero Trichomonas vaginalis Negative Normal Negative [facility] Comment on above: Performed By: #### V AGINT #### [facility] [address] [address] [address] Kristie Marrero Covid-19 PCR ([facility])on 04-10 SARS-CoV-2 (COVID-19) RNA RADHA+probe Ql (Unsp spec) Detected Critically abnormal NOT DETECTED [facility] Comment on above: Result Comment: This test is not yet approved or cleared by the [place] FDA. When there are no FDA-approved or cleared tests available, and other criteria are met, FDA can make tests available under an emergency access mechanism called an Emergency Use Authorization (EUA). The EUA for this test is supported by the [place] of Health and Human Service's (HHS's) declaration [...] used). Performed By: #### C VDTB #### [facility] [id number] Kristie Marrero Vital Signs Date Time Vital Sign Value Performing Clinician Facility 12-20-2023 15:22040 Body height 170.2 cm Summer LOPEZ Work Phone: [facility] 12-20-2023 15:22040 Body mass index (BMI) [Ratio] 38.28 kg/m2 Summer Davalos APRN-STATION REPAIRER Work Phone: [facility] 12-20-2023 15:22-040 Body temperature 98.29 [degF] Summer Davalos APRN-HARPER Work Phone: [facility] [employer] 12-20-2023 15:220400 Body weight 110.86 kg Summer Davalos APRN-STATION REPAIRER Work Phone: [facility] [employer] [facility] 12-20-2023 15:22-0400 Diastolic blood pressure 80 mm[Hg] Summer Davalos SUPPLY TEACHER-STATION REPAIRER Work Phone: [facility] 12-20-2023 15:22-0400 Heart rate 82 /min Summer Davalos SUPPLY TEACHER-STATION REPAIRER Work Phone: [facility] 12-20-2023 15:22-0400 Respiratory rate 18 /min Summer Davalos SUPPLY TEACHER-STATION REPAIRER [facility] Phone: [facility] 12-20-2023 15:22-0400 SaO2% (BldA) [Mass fraction] 97 % Summer Davalos SUPPLY TEACHER-STATION REPAIRER [facility] 12-20-2023 15:22-0400 Systolic blood pressure 100 mm[Hg] Summer Davalos SUPPLY TEACHER-STATION REPAIRER Work Phone: [facility] Encounters Encounter Date Encounter Type Care Provider Facility Start: 05-11-2024 End: 05-11-2024 ambulatory MADELEINE PRETTY Not Available Start: 02-17-2024 End: 02-18-2024 ambulatory [facility] Start: 02-17-2024 End: 02-17-2024 ambulatory [facility] Start: 02-15-2024 End: 02-15-2024 ambulatory CARMEN AYLEEN Not Available Start: 02-07-2024 End: 02-07-2024 ambulatory MADELEINE MARIA DE JESUS Not Available Start: 01-19-2024 End: 01-19-2024 Emergency department patient visit [facility] Start: 12-20-2023 End: 12-20-2023 ambulatory [facility] Start: 12-20-2023 End: 12-20-2023 Office outpatient visit 15 minutes Summer Davalos SUPPLY TEACHER-STATION REPAIRER Work Phone: [facility] Internal Medicine - Family [...] Adult depression scr eening assessment Summer Edwardemma SUPPLY TEACHER-STATION REPAIRER Work Phone: Start: 11-21-2023 [facility] PREG QUANT HCG Core y Ayleen DO Work Phone: Start: 11-16-2022 Microscopic observat ion [Identifier] in Cervix by Cyto stain Summer Edwardemma SUPPLY TEACHER-STATION REPAIRER Work Phone: Plan of Treatment Date Care Activity Detail Author Start: 11-13-2029 DTaP,Tdap and Td Vaccines (7 - Td or Tdap) DTaP,Tdap and Td Vaccines (7 - Td or Tdap) [facility] Start: 11-16-2025 Screening for malign ant neoplasm of cervix Pap Smear [facility] Start: 12-19-2024 Adult BMI Screening Adult BMI Screen ing [facility] Start: 12-19-2024 Depression Screening Depression Scre ening [facility] Start: 12-19-2024 Tobacco Screening Tobacco Screening [facility] Start: 09-14-2024 Adult BMI Follow Up Plan Adult BMI Follow Up Plan [facility] Start: 06-10-2023 Influenza vaccination Influenza Vacc ine (#1) [facility] Immunizations Immunization Date Immunization Notes Care Provider Fa cility 11-13-2019 tetanus toxoid, redu clifford diphtheria toxoid, and acellular pertussis vaccine, adsorbed Summer Davalos SUPPLY TEACHER-STATION REPAIRER Work Phone: [facility] 01-22-2014 diphtheria, tetanus toxoids and acellular pertussis vaccine, unspecified formulation Summer Davalos SUPPLY TEACHER-STATION REPAIRER Work Phone: [facility] 06-22-2004 diphtheria, tetanus toxoids and acellular pertussis vaccine Summer Davalos SUPPLY TEACHER-STATION REPAIRER Work Phone: [facility] 06-22-2004 haemophilus influenz ae type b vaccine, PRP-T conjugate Summer Davalos SUPPLY TEACHER-STATION REPAIRER Work Phone: [facility] 06-22-2004 pneumococcal conjuga te vaccine, 7 valent Summer Davalos SUPPLY TEACHER-STATION REPAIRER Work Phone: [facility] 12-20-2003 DTaP-hepatitis B and poliovirus vaccine Summer Davalos SUPPLY TEACHER-STATION REPAIRER Work Phone: [facility] 12-20-2003 haemophilus influenz ae type b vaccine, PRP-T conjugate Summer Davalos SUPPLY TEACHER-STATION REPAIRER Work Phone: [facility] 12-20-2003 measles, mumps and rubella virus vaccine Summer Davalos SUPPLY TEACHER-STATION REPAIRER Work Phone: [facility] 12-20-2003 varicella virus vaccine Summer Davalos SUPPLY TEACHER-STATION REPAIRER Work Phone: [facility] 11-11-2003 DTaP-hepatitis B and poliovirus vaccine Summer Davalos SUPPLY TEACHER-STATION REPAIRER Work Phone: [facility] 11-11-2003 haemophilus influenz ae type b vaccine, PRP-T conjugate Summer Davalos SUPPLY TEACHER-STATION REPAIRER Work Phone: [facility] 11-11-2003 pneumococcal conjuga te vaccine, 7 valent Summer Davalos SUPPLY TEACHER-STATION REPAIRER Work Phone: [facility] 05-31-2003 DTaP-hepatitis B and poliovirus vaccine Summer Davalos SUPPLY TEACHER-STATION REPAIRER Work Phone: [facility] 05-31-2003 haemophilus influenz ae type b vaccine, PRP-T conjugate Summer Davalos SUPPLY TEACHER-STATION REPAIRER Work Phone: [facility] 05-31-2003 pneumococcal conjuga te vaccine, 7 valent Summer Davalos SUPPLY TEACHER-STATION REPAIRER Work Phone: [facility] 2002 hepatitis B vaccine, pediatric or pediatric/adolescent dosage Summer Davalos SUPPLY TEACHER-STATION REPAIRER Work Phone: [facility] Payers Date Payer Category Payer Medicaid [id number] 2002 Unknown [id number] 2.16.8 [id number] 2002 Unknown [id number] 2.16.8 [id number] 2002 Unknown [id number] 2.16.8 [id number] 2002 Unknown [id number] 2.16.8 [id number] 2002 Unknown [id number] 2.16.84 [id number] 2002 Unknown [id number] 2.16.84 [id number] 2002 Unknown [id number] 2.16.84 [id number] 1982 Unknown [id number] 2.16.84 [id number] 1982 Unknown [id number] 2.16.84 [id number] 1982 Unknown [id number] 2.16.84 [id number] 1959 Unknown [id number] 1959 Unknown [id number] Social History Date Type Detail Facility Start: 05-19-2023 Tobacco smoking stat us NHIS Tobacco smoking consumption unknown [facility] Start: 05-19-2023 Tobacco use and exposure User of smokeless tobacco [facility] Start: 11-18-2023 End: 12-20-2023 Alcohol intake Lifetime non-drinker (finding) [facility] Start: 11-11-2020 End: 05-19-2023 History of Social function [facility] Start: 11-11-2020 End: 05-19-2023 Tobacco use panel [facility] [facility] Start: 2000 Sex Assigned At Not on file [facility] Start: 01-15-[address] [facility] Never smoked tobacco [facility] Start: 01-15-2023 Tobacco use and exposure Smokeless tobacco non-user [facility] Frequency of Alcohol Consumption Never [facility] History of Present illness Narrative 12-20-2023 Summer Machado Anoop, SUPPLY TEACHER-STATION REPAIRER - 12/20/2023 3:20 PM EDT Note Date [...] in adult She has her contraception and manager research care thru Dr Abbasi, she should continue [...] Thrasher 12/20/23 1629 documented in this encounter [facility] Evaluation note Note Date & Type Note Facility Evaluation note Diagnosis PTSD (post-traumatic stress disorder)- Primary Posttraumatic stress disorder General counseling and advice for contraceptive management Class 2 obesity due to excess calories without serious comorbidity with body mass index (BMI) of 37.0 to 37.9 in adult documented in this encounter [facility] Instructions Note Date & Type Note Facility Instructions Not on filedocumented in this en [facility] Reason for referral (narrative) Consultation (Routine) - Pending Review Note Date & Type Note Facility Reason for referral (narrati ve) Specialty Diagnoses / Procedures Referred By Vinny stoddard Referred To Contact Diagnoses PTSD (post-traumatic stress disorder) Summer Davalos APRN-FNP [address] [place] [address] Referral ID Status Reason Start Date Expiration Date Visits Requested Visits Authorized [id number] Pending Review Patient Preference 12/20/2023 12/19/2024 1 1 [facility] Summary Purpose Family History No Family [...] and content) DATE CREATED AUTHOR 01/27/2023 [facility] DATE CREATED AUTHOR AUTHOR'S ORGANIZ ATION 01/20/2024 [facility] DATE CREATED AUTHOR AUTHOR'S ORGANIZ ATION 02/19/2024 [facility] DATE CREATED AUTHOR AUTHOR'S ORGANIZ ATION 02/20/2024 [facility] DATE CREATED AUTHOR AUTHOR'S ORGANIZ ATION 05/13/2024 [facility] dical Specialists [employer] Care Teams (unrecognized sec tion and content) Speech Language Pathologist Prn Relationship Specialty Start Date End Date Reid Jasmine MD PCP - General Family Medicine 08/01/23 Speech Language Pathologist Prn Relationship Specialty Start Date End Date Summer Davalos Rose, SUPPLY TEACHER-STATION REPAIRER [address] [place] [address] PCP - General Internal Medicine 09/14/23 Reason [...] BE BASED ON THE PRIMARY CLINICAL RECORDS. [employer] provides no warranty or guarantee of the accuracy or completeness of information in this document.
== END 2024-05-29 20:04 | disposition home or self-care (01) ==
LOC: LAB 20:03
PROVIDERS: PCP Nurse Practitioner Family; Visit Provider Obstetrics & Gynecology
DX: Z34.92 Encounter for supervision of normal pregnancy, unspecified, second trimester (principal)
CPT/HCPCS: 36415; 82105; 88175

== ENCOUNTER 2024-07-02 08:27 | Outpatient (OUT) | payer OTHER, SELFPAY ==
--- NOTE | 2024-07-02 08:30 | US_ITS ---
[address] [address] Patient Name: FATOUMATA VIEYRA MRN: [id number] date: 2000 Sex: F Assigned Patient Location: [facility] Current Patient Location: [facility] Accession/Order Number: [id number] Exam Date: 07/02/2024 08:30 Report Date: 07/02/2024 09:32 At the request of: CARMEN CHENEY Procedure: US OB transvaginal EXAMINATION: US OB anatomy, US OB transvaginal HISTORY: ANATOMY COMPARISON: No relevant comparison available. TECHNIQUE: Transabdominal sonographic examination was performed for obstetrical and evaluation. FINDINGS: Limited exam due to maternal body habitus Number: 1 Heart Rate: 155 bpm H.B. /min Amniotic Fluid Volume: Subjectively normal position: Cephalic presentation, longitudinal lie Placental Location: ANTERIOR, the placental edge is 3.3 cm from the internal cervical os Cervix Length: 3.97 cm , closed Normal anatomy: Lateral ventricles, cerebellum, posterior fossa, nose, lips, orbits, diaphragm, stomach, kidneys, abdominal cord insertion, bladder, umbilical arteries, spine, extremities Suboptimal visualization: Four-chamber heart Nonvisualization: RVOT, LVOT, three-vessel cord BIOMETRY: BPD: 4.75 cm; 20 weeks 3 days; 46.60 % HC: 17.73 cm; 20 weeks 1 day; 31.30 % AC: 14.84 cm; 20 weeks 1 day; 33.10 % FL: 3.55 cm; 21 weeks 2 days; 69.90 % EFW:343.10 g; 53.40 %, 13 ounces FL/AC: 23.92 FL/BPD: 74.74 HC/AC: 1.19 GESTATIONAL AGE: Age by EDC: 20 weeks 3 days MYESHA by EDC: 2024-11-16 Age by current US: 20 weeks 4 days MYESHA by current US: 2024-11-15 US/US OB transvaginal IMPRESSION: Suboptimal and nonvisualization detailed above Otherwise normal anatomy scan Closed cervix measuring 4 cm in length *Reference: [employer] Practice Guideline for the performance of Obstetric Ultrasound Examinations, July 10, 2007. Electronically authenticated by: MARQUES RAMIREZ Date: 07/02/2024 09:32
--- NOTE | 2024-07-02 08:30 | US_ITS ---
[address] [address] Patient Name: FATOUMATA VIEYRA MRN: [id number] date: 2000 Sex: F Assigned Patient Location: [facility] Current Patient Location: [facility] Accession/Order Number: [id number] Exam Date: 07/02/2024 08:30 Report Date: 07/02/2024 09:32 At the request of: CARMEN CHENEY Procedure: US OB anatomy EXAMINATION: US OB anatomy, US OB transvaginal HISTORY: ANATOMY COMPARISON: No relevant comparison available. TECHNIQUE: Transabdominal sonographic examination was performed for obstetrical and evaluation. FINDINGS: Limited exam due to maternal body habitus Number: 1 Heart Rate: 155 bpm H.B. /min Amniotic Fluid Volume: Subjectively normal position: Cephalic presentation, longitudinal lie Placental Location: ANTERIOR, the placental edge is 3.3 cm from the internal cervical os Cervix Length: 3.97 cm , closed Normal anatomy: Lateral ventricles, cerebellum, posterior fossa, nose, lips, orbits, diaphragm, stomach, kidneys, abdominal cord insertion, bladder, umbilical arteries, spine, extremities Suboptimal visualization: Four-chamber heart Nonvisualization: RVOT, LVOT, three-vessel cord BIOMETRY: BPD: 4.75 cm; 20 weeks 3 days; 46.60 % HC: 17.73 cm; 20 weeks 1 day; 31.30 % AC: 14.84 cm; 20 weeks 1 day; 33.10 % FL: 3.55 cm; 21 weeks 2 days; 69.90 % EFW:343.10 g; 53.40 %, 13 ounces FL/AC: 23.92 FL/BPD: 74.74 HC/AC: 1.19 GESTATIONAL AGE: Age by EDC: 20 weeks 3 days MYESHA by EDC: 2024-11-16 Age by current US: 20 weeks 4 days MYESHA by current US: 2024-11-15 US/US OB anatomy IMPRESSION: Suboptimal and nonvisualization detailed above Otherwise normal anatomy scan Closed cervix measuring 4 cm in length *Reference: [employer] Practice Guideline for the performance of Obstetric Ultrasound Examinations, July 10, 2007. Electronically authenticated by: MARQUES RAMIREZ Date: 07/02/2024 09:32
--- OUTSIDE RECORDS SUMMARY | 2024-07-02 08:46 | XMS_ITS | CCD ---
Author Organization [facility] Informat ion [facility] Care Team Providers Care Behavioral Psychologist Name Role Phone BOYDC, DR BEAN Primary [...] Unavailable Reid Jasmine MD Primary Care Provider [phone] Anoop SUPERVISOR CIGAR MAKING HAND-PATCHER HELPER, Summer Machado Primary Care Provider SUMMER DAVALOS Primary Care Unavailable MARQUES BUTLER Attending Unavailable SUMMER DAVALOS Attending Unavailable SUMMER DAVALOS Referring Unavailable SUMMER DAVALOS Primary Care Unavailable KATARZYNA, NIVIA L Attending Unavailable SUMMER DAVALOS Referring Unavailable SHIMONSSUMMER Primary Care Unavailable KATARZYNA, NIVIA L Referring Unavailable SUMMER DAVALOS Primary Care Unavailable MADELEINE PRETTY Attending Unavailable CARMEN ABBASI Attending Unavailable CARMEN ABBASI Attending Unavailable MADELEINE PRETTY Attending Unavailable Allergies Allergy Classification Reported Allergen(s) Allergy Type Date of Onset Reaction(s) Facility (1 source) Ondansetron Drug Allergy [facility] Repository (1 source) Ondansetron Drug Allergy 08-01-2023 [facility] Work Phone: (4 sources) Ondansetron; Translations: [ONDANSETRON HCL] Drug Allergy 12-11-2022 [facility] Medications Current Medications Medication Drug Class(es) Dates [...] BASOPHIL 0.2 X10E9/L Normal 0.0-0.2 [facility] Comment on above: Performed By: #### Terri UGALDE FEPR, 2275- #### [facility] ([id number]) [address], [facility] [address] [place] [address] ABSOLUTE NEUTROPHIL 3.1 X10E9/L Normal 1.5-6.6 [facility] Comment on above: Performed By: #### Terri UGALDE, FEPR, 2275- #### [facility] ([id number]) [address] [address] [place] [address] Basophils/100 WBC (Bld) 3.0 % Normal [facility] Comment on above: Performed By: #### Terri UGALDE, FEPR, 2275-4 #### [facility] ([id number]) [address], [address] [place] [address] Eosinophils (Bld) [#/Vol] 0.2 10*3/uL Normal 0.0-0.4 [facility] Comment on above: Performed By: #### Terri UGALDE, FEPR, 2276-01 #### [facility] ([id number]) [address] [address] [place] [address] Eosinophils/100 WBC (Bld) 3.4 % Normal [facility] Comment on above: Performed By: #### Terri UGALDE, FEPR, 2276-01 #### [facility] ([id number]) [address] [address] [place] [address] Erythrocyte distribution width (RBC) [Ratio] 13.3 % Normal 11.5-15.0 [facility] Comment on above: Performed By: #### Terri UGALDE, FEPR, 2275- #### [facility] ([id number]) [address], [address] [place] [address] Hematocrit (Bld) [Volume fraction] 40.3 % Normal 35-47 [facility] Comment on above: Performed By: #### AMBER Murray BCA, 2276-01 #### [facility] ([id number]) [address], [facility] [address] [place] [address] Hemoglobin (Bld) [Mass/Vol] 13.8 g/dL Normal 11.7-15.5 [facility] Comment on above: Performed By: #### Terri UGALDE FEPR, 2275- #### [facility] ([id number]) [address] [address] [place] [address] Lymphocytes (Bld) [#/Vol] 2.1 10*3/uL Normal 1.0-3.5 [facility] Comment on above: Performed By: #### Terri UGALDE FEPR, 2275-4 #### [facility] ([id number]) [address], [facility] [address] [place] [address] Lymphocytes/100 WBC (Bld) 35.1 % Normal [facility] Comment on above: Performed By: #### Terri UGALDE FEPR, 4 #### [facility] ([id number]) [address], [facility] [address] [place] [address] MCH (RBC) [Entitic mass] 29.0 pg Normal 27-34 [facility] Comment on above: Performed By: #### Terri UGALDE FEPR, 4 #### [facility] ([id number]) [address], [facility] [address] [place] [address] MCHC (RBC) [Mass/Vol] 34.2 g/dL Normal 32-36 [facility] Comment on above: Performed By: #### Terri UGALDE, FEPR, 4 #### [facility] ([id number]) [address], [address] [place] [address] MCV (RBC) [Entitic vol] 85 fL Normal 80-100 [facility] Comment on above: Performed By: #### C AFTAB, FEPR, 6-4 #### [facility] ([id number]) [address], [address] [place] [address] Monocytes (Bld) [#/Vol] 0.5 10*3/uL Normal 0-0.9 [facility] Comment on above: Performed By: #### Terri UGALDE, FEPR, 2275-4 #### [facility] ([id number]) [address], [address] [place] [address] Monocytes/100 WBC (Bld) 7.5 % Normal [facility] Comment on above: Performed By: #### C AFTAB, FEPR, 2276-01 #### [facility] ([id number]) [address], [address] [place] [address] Neutrophils/100 WBC (Bld) 51.0 % Normal [facility] Comment on above: Performed By: #### Terri UGALDE, FEPR, 2276-01 #### [facility] ([id number]) [address], [address] [place] [address] Platelet mean volume (Bld) [Entitic vol] 8.8 fL Normal 7-12 [facility] Comment on above: Performed By: #### Terri UGALDE, FEPR, 2275- #### [facility] ([id number]) [address], [address] [place] [address] Platelets (Bld) [#/Vol] 272 10*3/uL Normal 150-450 [facility] Comment on above: Performed By: #### Terri BCA, FEPR, 4 #### [facility] ([id number]) [address], [address] [place] [address] RBC COUNT 4.75 X10E12/L Normal 3.80-5.20 [facility] Comment on above: Performed By: #### C BCA, FEPR, 6-4 #### [facility] ([id number]) [address] [address] [place] [address] WBC (Bld) [#/Vol] 6.1 10*3/uL Normal 4.0-11.0 [facility] Comment on above: Performed By: #### C BCA, FEPR, 6-4 #### [facility] ([id number]) [address], [address] [address] FERRITINon 02-17-2024 Ferritin [Mass/Vol] 50 ng/mL Normal 11-307 [facility] Comment on above: Performed By: #### C BCA, FEPR, 2275-4 #### [facility] ([id number]) [address] [address] IRON PROFILEon 02-17-2024 Iron [Mass/Vol] 59 ug/dL Normal 50-170 [facility] Comment on above: Performed By: #### C BCA, FEPR, 2275-4 #### [facility] ([id number]) [address], [address] [address] IRON BINDING 384 ug/dL Normal 250-425 [facility] Comment on above: Performed By: #### C BCA, FEPR, 6-4 #### [facility] ([id number]) [address], [address] [address] IRON SATURATION 15 % SATURATION Normal 15-50 [facility] Comment on above: Performed By: #### C BCA, FEPR, 6-4 #### [facility] ([id number]) [address], [address] [address] HCG ( test) Ql (U)o n 01-19-2024 Beta HCG ( test) Ql (U) Negative Normal NEG [facility] Comment on above: Performed By: #### 2 106-3 #### [facility] ([id number]) [address] [place] [address] [place] [address] URN MACROSCOPIC NURon 2023 BILIRUBIN SUDHIR Negative Normal NEG [facility] Comment on above: Performed By: #### N UM #### [facility] ([id number]) [address] [place] [address] [place] [address] BLOOD/HGB SUDHIR Trace Abnormal NEG [facility] Comment on above: Performed By: #### N UM #### [facility] ([id number]) [address] [place] [address] [place] [address] GLUCOSE SUDHIR Negative Normal NEG [facility] Comment on above: Performed By: #### N UM #### [facility] ([id number]) [address] [place] [address] [place] [address] KETONES SUDHIR Negative Normal NEG [facility] Comment on above: Performed By: #### N UM #### [facility] ([id number]) [address] [place] [address] [place] [address] LEUKOCYTE ESTERASE SUDHIR Negative Normal NEG [facility] Comment on above: Performed By: #### N UM #### [facility] ([id number]) [address] [place] [address] [place] [address] NITRITE SUDHIR Negative Normal NEG [facility] Comment on above: Performed By: #### N UM #### [facility] ([id number]) [address] [place] [address] [place] [address] PH SUDHIR 6.0 Normal 5.0-8.5 [facility] Comment on above: Performed By: #### N UM #### [facility] ([id number]) [address] [place] [address] [place] [address] PROTEIN SUDHIR Negative Normal NEG [facility] Comment on above: Performed By: #### N UM #### [facility] ([id number]) [address] [place] [address] SPECIFIC GRAVITY SUDHIR >=1.030 Normal 1.003-1.035 [facility] Comment on above: Performed By: #### N UM #### [facility] ([id number]) [address] [place] [address] UROBILINOGEN SUDHIR 0.2 eu/dL Normal <1.1 [facility] Comment on above: Performed By: #### N UM #### [facility] ([id number]) [address] [place] [address] [facility]H PREG QUANT HCGon 024 HCG QUANTITATIVE <1 mIU/mL [facility] Comment on above: 5-50 0.2-1 WEEK 50-500 1-2 WEEKS 100-5,000 2-3 WEEKS 500-10,000 3-4 WEEKS 1,000-50,000 4-5 WEEKS 10,000-100,000 5-6 WEEKS 15,000-200,000 6-8 WEEKS 10,000-100,000 2-3 MONTHS [facility] CBC AUTO DIFFon 01-19-2023 BASO # 0.1 103/ul Normal 0.0-0.1 [facility] Comment on above: Performed By: #### C BC #### [facility] [address] [place] [address] Dr. Kristie Marrero Basophils/100 WBC (Bld) 0.5 % Normal 0.2-2.0 [facility] Comment on above: Performed By: #### C BC #### [facility] [address] [place] [address] Dr. Kristie Marrero EO # 0.2 103/ul Normal 0.0-0.7 [facility] Comment on above: Performed By: #### C BC #### [facility] [address] [place] [address] Dr. Kristie Marrero Eosinophils/100 WBC (Bld) 2.0 % Normal 0.9-7.0 [facility] Comment on above: Performed By: #### C BC #### [facility] [address] [place] [address] Dr. Kristie Marrero Erythrocyte distribution width (RBC) [Ratio] 12.0 % Normal 11.0-15.0 [facility] Comment on above: Performed By: #### C BC #### [facility] [address] [place] [address] Dr. Kristie Marrero Hematocrit (Bld) [Volume fraction] 38.0 % Normal 36.0-48.0 [facility] Comment on above: Performed By: #### C BC #### [facility] [address] [place] [address] Dr. Kristie Marrero Hemoglobin (Bld) [Mass/Vol] 13.3 g/dL Normal 12.0-16.0 [facility] Comment on above: Performed By: #### C BC #### [facility] [address] [place] [address] Dr. Kristie Marrero IG # 0.04 10e3/ul Critically high 0.00-0.03 [facility] Comment on above: Performed By: #### C BC #### [facility] [address] [place] [address] Dr. Kristie Marrero IG % 0.4 % Normal 0.0-0.5 [facility] Comment on above: Performed By: #### C BC #### [facility] [address] [place] [address] Dr. Kristie Marrero LYMPH # 1.3 103/ul Normal 1.2-3.8 [facility] Comment on above: Performed By: #### C BC #### [facility] [address] [place] [address] Dr. Kristie Marrero Lymphocytes/100 WBC (Bld) 12.3 % Critically low 20.5-60.0 [facility] Comment on above: Performed By: #### C BC #### [facility] [address] [place] [address] Dr. Kristie Marrero MANUAL DIFF REQ NO Normal [facility] Comment on above: Performed By: #### C BC #### [facility] [address] [address] [address] Kristie Marrero MCH (RBC) [Entitic mass] 29.2 pg Normal 26.7-34.0 [facility] Comment on above: Performed By: #### C BC #### [facility] [address] [place] [address] Dr. Kristie Marrero MCHC (RBC) [Mass/Vol] 35.0 g/dL Normal 29.9-35.2 [facility] Comment on above: Performed By: #### C BC #### [facility] [address] [place] [address] Dr. Kristie Marrero MCV (RBC) [Entitic vol] 83.3 fL Normal 81.0-99.0 [facility] Comment on above: Performed By: #### C BC #### [facility] [address] [place] [address] Dr. Kristie Marrero MONO # 0.7 103/ul Normal 0.3-0.8 [facility] Comment on above: Performed By: #### C BC #### [facility] [address] [place] [address] Dr. Kristie Marrero Monocytes/100 WBC (Bld) 7.0 % Normal 1.7-12.0 [facility] Comment on above: Performed By: #### C BC #### [facility] [address] [place] [address] Dr. Kristie Marrero NEUT # 8.2 103/ul Critically high 1.4-6.[address] [facility] Comment on above: Performed By: #### C BC #### [facility] [address] [place] [address] Dr. Kristie Marrero Neutrophils/100 WBC (Bld) 77.8 % Critically high 43.0-75.0 [facility] Comment on above: Performed By: #### C BC #### [facility] [address] [place] [address] Dr. Kristie Marrero Platelet mean volume (Bld) [Entitic vol] 9.5 fL Normal 9.5-13.5 [facility] Comment on above: Performed By: #### C BC #### [facility] [address] [place] [address] Dr. Kristie Marrero PLT 265 103/ul Normal 150-450 [facility] Comment on above: Performed By: #### C BC #### [facility] [address] [place] [address] Dr. Kristie Marrero RBC 4.56 106/ul Normal 4.20-5.40 [facility] Comment on above: Performed By: #### C BC #### [facility] [address] [place] [address] Dr. Kristie Marrero WBC 10.5 103/ul Normal 4.0-11.0 [facility] Comment on above: Performed By: #### C BC #### [facility] [address] [place] [address] Dr. Kristie Marrero PREG HCG QUALon 01-19-2023 , QUAL Negative Normal NEGATIVE [facility] Comment on above: Performed By: #### P REG #### [facility] [address] [place] [address] Dr. Kristie Marrero CHLAMYDIA/GONOCOCCUS RADHA ( AB/URINE/PAPon 11-19-2022 Chlamydia trachomatis, RADHA Negative Normal Negative [facility] Comment on above: Performed By: #### C T/NGNA #### [facility] [address] [place] [address] Dr. Kristie Marrero Neisseria gonorrhoeae, RADHA Negative Normal Negative [facility] Comment on above: Performed By: #### C T/NGNA #### [facility] [address] [place] [address] Dr. Kristie Marrero VAGINITIS/VAGINOSIS DNA PROB Syed 11-18-2022 Jenny species Negative Normal Negative [facility] Comment on above: Performed By: #### V AGINT #### [facility] [address] [place] [address] Dr. Kristie Marrero Gardnerella vaginalis Positive Abnormal Negative [facility] Comment on above: Performed By: #### V AGINT #### [facility] [address] [place] [address] Dr. Kristie Marrero Trichomonas vaginalis Negative Normal Negative [facility] Comment on above: Performed By: #### V AGINT #### [facility] [address] [address] [address] Kristie Marrero Covid-19 PCR ([facility])on 04-10 SARS-CoV-2 (COVID-19) RNA RADHA+probe Ql (Unsp spec) Detected Critically abnormal NOT DETECTED [facility] Comment on above: Result Comment: This test is not yet approved or cleared by the [place] FDA. When there are no FDA-approved or cleared tests available, and other criteria are met, FDA can make tests available under an emergency access mechanism called an Emergency Use Authorization (EUA). The EUA for this test is supported by the [place] of Health and Human Service's (HHS's) declaration [...] used). Performed By: #### C VDTB #### [facility] [id number] Kristie Marrero Vital Signs Date Time Vital Sign Value Performing Clinician Facility 12-20-2023 15:22-0400 Body height 170.2 cm [facility] 12-20-2023 15:22-0400 Body mass index (BMI) [Ratio] 38.28 kg/m2 Summer Davalos APRN-PATCHER HELPER Work Phone: [facility] [employer] [facility] 12-20-2023 15:22-0400 Body temperature 98.29 [degF] Summer Davalos APRN-PATCHER HELPER Work Phone: [facility] 12-20-2023 15:22-0400 Body weight 110.86 kg Summer Davalos APRN-PATCHER HELPER Work Phone: [facility] 12-20-2023 15:22-0400 Diastolic blood pressure 80 mm[Hg] Summer Davalos SUPERVISOR CIGAR MAKING HAND-PATCHER HELPER Work Phone: [facility] 12-20-2023 15:22-0400 Heart rate 82 /min Summer Davalos SUPERVISOR CIGAR MAKING HAND-PATCHER HELPER Work Phone: [facility] 12-20-2023 15:22-0400 Respiratory rate 18 /min Summer Davalos SUPERVISOR CIGAR MAKING HAND-PATCHER HELPER Work Phone: [facility] 12-20-2023 15:22-0400 SaO2% (BldA) [Mass fraction] 97 % Summer Davalos SUPERVISOR CIGAR MAKING HAND-PATCHER HELPER Work Phone: [facility] 12-20-2023 15:22-0400 Systolic blood pressure 100 mm[Hg] Summer Davalos SUPERVISOR CIGAR MAKING HAND-PATCHER HELPER Work Phone: [facility] Encounters Encounter Date Encounter Type Care Provider Facility Start: 06-28-2024 End: 06-28-2024 ambulatory MADELEINE MARIA DE JESUS Not Available Start: 05-29-2024 End: 05-29-2024 ambulatory CARMEN AYLEEN Not Available Start: 05-11-2024 End: 05-11-2024 ambulatory MADELEINE MARIA DE JESUS Not Available Start: 02-17-2024 End: 02-18-2024 ambulatory [facility] Start: 02-17-2024 End: 02-17-2024 ambulatory [facility] Start: 02-15-2024 End: 02-15-2024 ambulatory CARMEN AYLEEN Not Available Start: 02-07-2024 End: 02-07-2024 ambulatory MADELEINE MARIA DE JESUS Not Available Start: 01-19-2024 End: 01-19-2024 Emergency department patient visit [facility] Start: 12-20-2023 End: 12-20-2023 ambulatory [facility] Start: 12-20-2023 End: 12-20-2023 Office outpatient visit 15 minutes Summer Davalos SUPERVISOR CIGAR MAKING HAND-PATCHER HELPER Work Phone: [facility] Comment [...] 12-20-2023 Adult depression scr eening assessment Summer Shimonemma SUPERVISOR CIGAR MAKING HAND-PATCHER HELPER Work Phone: Start: 11-21-2023 [facility] PREG QUANT HCG Core y Ayleen DO Work Phone: Start: 11-16-2022 Microscopic observat ion [Identifier] in Cervix by Cyto stain Summer Davalos SUPERVISOR CIGAR MAKING HAND-PATCHER HELPER Work Phone: Plan of Treatment Date Care Activity Detail Author Start: 11-13-2029 DTaP,Tdap and Td Vaccines (7 - Td or Tdap) DTaP,Tdap and Td Vaccines (7 - Td or Tdap) [facility] Start: 11-16-2025 Screening for malign ant neoplasm of cervix Pap Smear [facility] Start: 12-19-2024 Adult BMI Screening Adult BMI Screen ing [facility] Start: 12-19-2024 Depression Screening Depression Scre ening [facility] Start: 12-19-2024 Tobacco Screening Tobacco Screening [facility] Start: 09-14-2024 Adult BMI Follow Up Plan Adult BMI Follow Up Plan [facility] Start: 06-10-2023 Influenza vaccination Influenza Vacc ine (#1) [facility] Immunizations Immunization Date Immunization Notes Care Provider Fa cility 11-13-2019 tetanus toxoid, redu clifford diphtheria toxoid, and acellular pertussis vaccine, adsorbed Summer Davalos SUPERVISOR CIGAR MAKING HAND-PATCHER HELPER Work Phone: [facility] 01-22-2014 diphtheria, tetanus toxoids and acellular pertussis vaccine, unspecified formulation Summer Davalos SUPERVISOR CIGAR MAKING HAND-PATCHER HELPER Work Phone: [facility] 06-22-2004 diphtheria, tetanus toxoids and acellular pertussis vaccine Summer Davalos SUPERVISOR CIGAR MAKING HAND-PATCHER HELPER Work Phone: [facility] 06-22-2004 haemophilus influenz ae type b vaccine, PRP-T conjugate Summer Davalos SUPERVISOR CIGAR MAKING HAND-PATCHER HELPER Work Phone: [facility] 06-22-2004 pneumococcal conjuga te vaccine, 7 valent Summer Davalos SUPERVISOR CIGAR MAKING HAND-PATCHER HELPER Work Phone: [facility] 12-20-2003 DTaP-hepatitis B and poliovirus vaccine Summer Davalos SUPERVISOR CIGAR MAKING HAND-PATCHER HELPER Work Phone: [facility] 12-20-2003 haemophilus influenz ae type b vaccine, PRP-T conjugate Summer Davalos SUPERVISOR CIGAR MAKING HAND-PATCHER HELPER Work Phone: [facility] 12-20-2003 measles, mumps and rubella virus vaccine Summer Davalos SUPERVISOR CIGAR MAKING HAND-PATCHER HELPER Work Phone: [facility] 12-20-2003 varicella virus vaccine Summer Davalos SUPERVISOR CIGAR MAKING HAND-PATCHER HELPER Work Phone: [facility] 11-11-2003 DTaP-hepatitis B and poliovirus vaccine Summer Davalos SUPERVISOR CIGAR MAKING HAND-PATCHER HELPER Work Phone: [facility] 11-11-2003 haemophilus influenz ae type b vaccine, PRP-T conjugate Summer Davalos SUPERVISOR CIGAR MAKING HAND-PATCHER HELPER Work Phone: [facility] 11-11-2003 pneumococcal conjuga te vaccine, 7 valent Summer Davalos SUPERVISOR CIGAR MAKING HAND-PATCHER HELPER Work Phone: [facility] 05-31-2003 DTaP-hepatitis B and poliovirus vaccine Summer Dvaalos SUPERVISOR CIGAR MAKING HAND-PATCHER HELPER Work Phone: [facility] 05-31-2003 haemophilus influenz ae type b vaccine, PRP-T conjugate Summer Davalos SUPERVISOR CIGAR MAKING HAND-PATCHER HELPER Work Phone: [facility] 05-31-2003 pneumococcal conjuga te vaccine, 7 valent Summer Davalos SUPERVISOR CIGAR MAKING HAND-PATCHER HELPER Work Phone: [facility] 2002 hepatitis B vaccine, pediatric or pediatric/adolescent dosage Summer Davalos SUPERVISOR CIGAR MAKING HAND-PATCHER HELPER Work Phone: [facility] Payers Date Payer Category Payer Medicaid [id number] 2002 Unknown [id number] 2.16.8 [id number] 2002 Unknown [id number] 2.16.8 [id number] 2002 Unknown [id number] 2.16.8 [id number] 2002 Unknown [id number] 2.16.8 [id number] 2002 Unknown [id number] 2.16.84 [id number] 2002 Unknown [id number] 2.16.84 [id number] 2002 Unknown [id number] 2.16.84 [id number] 2002 Unknown [id number] 2.16.84 [id number] 2002 Unknown [id number] 2.16.84 [id number] 1982 Unknown [id number] 2.16.84 [id number] 1982 Unknown [id number] 2.16.84 [id number] 1982 Unknown [id number] 2.16.84 [id number] 1959 Unknown [id number] 1959 Unknown [id number] Social History Date Type Detail Facility Start: 05-19-2023 Tobacco smoking stat [facility] Tobacco smoking consumption unknown [facility] Start: 05-19-2023 Tobacco use and exposure User of smokeless tobacco [facility] Start: 11-18-2023 End: 12-20-2023 Alcohol intake Lifetime non-drinker (finding) [facility] Start: 11-11-2020 End: 05-19-2023 History of Social function [facility] Start: 11-11-2020 End: 05-19-2023 Tobacco use panel [facility] Start: 2000 Sex Assigned At Not on file N [facility] Start: 01-15-2023 Tobacco smoking stat [facility] Never smoked tobacco [facility] Start: 01-15-2023 Tobacco use and exposure Smokeless tobacco non-user [facility] Frequency of Alcohol Consumption Never [facility] History of Present illness Narrative 12-20-2023 Summer Machado Anoop, SUPERVISOR CIGAR MAKING HAND-PATCHER HELPER - 12/20/2023 3:20 PM EDT Note [...] in adult 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, she should continue [...] 1629 documented in this [facility] Note Date & Type Note Facility Evaluation note Diagnosis PTSD (post-traumatic stress disorder)- Primary Posttraumatic stress disorder General counseling and advice for contraceptive management Class 2 obesity due to excess calories without serious comorbidity with body mass index (BMI) of 37.0 to 37.9 in adult documented [facility] Inst[facility] Note Date & Type Note Facility Instructions Not on filedocumented in this en counter [facility] Reason for referral (narrative) Consultation (Routine) - Pending Review Note Date & Type Note Facility Reason for referral (narrati ve) Specialty Diagnoses / Procedures Referred By Contcourt t Referred To Contact Diagnoses PTSD (post-traumatic stress disorder) Summer Davalos APRN-FNP [address] [place] [address] Referral ID Status Reason Start Date Expiration Date Visits Requested Visits Authorized [id number] Pending Review Patient Preference 12/20/2023 12/19/2024 1 1 [facility] Summary Purpose Family History No Family [...] pital DATE CREATED AUTHOR AUTHOR'S ORGANIZ ATION 01/20/2024 [facility] DATE CREATED AUTHOR AUTHOR'S ORGANIZ ATION 02/19/2024 [facility] DATE CREATED AUTHOR AUTHOR'S ORGANIZ ATION 02/20/2024 [facility] DATE CREATED AUTHOR AUTHOR'S ORGANIZ ATION 07/01/2024 [facility] Care Teams (unrecognized sec tion and content) Behavioral Psychologist Relationship Specialty Start Date End Date Reid Jasmine MD PCP - General Family Medicine 08/01/23 Behavioral Psychologist Relationship Specialty Start Date End Date Summer Davalos, [employer] [address] [phone] PCP - General Internal Medicine 09/14/23 Reason [...] BE BASED ON THE PRIMARY CLINICAL RECORDS. [facility]. provides no warranty or guarantee of the accuracy or completeness of information in this document.
== END 2024-07-02 08:28 | disposition home or self-care (01) ==
LOC: NOMS 08:28
PROVIDERS: PCP Nurse Practitioner Family; Visit Provider Obstetrics & Gynecology
DX: Z36.89 Encounter for other specified antenatal screening (principal)
CPT/HCPCS: 76805; 76817

== ENCOUNTER 2024-07-30 08:32 | Outpatient (OUT) | payer OTHER, SELFPAY ==
--- NOTE | 2024-07-30 08:35 | US_ITS ---
[address] [address] Patient Name: FATOUMATA VIEYRA MRN: [id number] date: 2000 Sex: F Assigned Patient Location: [facility] Current Patient Location: [facility] Accession/Order Number: [id number] Exam Date: 07/30/2024 08:35 Report Date: 07/30/2024 09:49 At the request of: CARMEN CHENEY Procedure: US OB incomplete anatomy EXAM: US OB incomplete anatomy HISTORY: INCOMPLETE ANATOMY COMPARISON: 07/02/2024 TECHNIQUE: Transabdominal images FINDINGS: Limited by patient body habitus position: Cephalic presentation, longitudinal lie Heart rate: 151 beats minute Normal observed anatomy: four-chamber heart, RVOT, LVOT, three-vessel cord US/US OB incomplete anatomy IMPRESSION: Normal observed anatomy Electronically authenticated by: MARQUES RAMIREZ Date: 07/30/2024 09:49
--- OUTSIDE RECORDS SUMMARY | 2024-07-30 08:40 | XMS_ITS | CCD ---
Author Organization [facility] InformFormerly [facility] Care Team Providers Care Fixture Builder Name Role Phone BOYDC, DR BEAN Primary [...] Reid Jasmine MD Primary Care Provider Kunemma WAISTLINE JOINER OVERLOCK-NURSE ADMINISTRATOR, Summer Machado Primary Care Provider SUMMER DAVALOS Primary Care Unavailable MARQUES BUTLER Attending Unavailable KATARZYNA, NIVIA L Referring Unavailable SUMMER DAVALOS Primary Care Unavailable MADELEINE PRETTY Attending Unavailable CARMEN ABBASI Attending Unavailable CARMEN ABBASI Attending Unavailable MADELEINE PRETTY Attending Unavailable SUMMER DAVALOS Attending Unavailable SUMMER DAVALOS Referring Unavailable SUMMER DAVALOS Primary Care Unavailable NIVIA COLÓN Attending Unavailable SUMMER DAVALOS Referring Unavailable SUMMER DAVALOS Primary Care Unavailable PARKER GALLO Attending Unavailable KATARZYNA, NIVIA L Referring Unavailable KATARZYNA, NIVIA L Primary Care Unavailable Allergies Allergy Classification Reported Allergen(s) Allergy Type Date of Onset Reaction(s) Facility (1 source) Ondansetron Drug Allergy [facility] (1 source) Ondansetron Drug Allergy 08-01-2023 Rash [facility] Work Phone: (4 sources) Ondansetron; Translations: [ONDANSETRON HCL] Drug Allergy 12-11-2022 Salma [facility] Medications Current Medications Medication Drug Class(es) [...] stress disorder, unspecified] Onset: 12-20-2023 12-20-2023 Chronic Fever of unknown origin (1 source) Fever Onset: 07-04-2024 Episodic Immunizations and screening for infectious disease (4 sources) Contact with and (suspected) exposure to infections with a predominantly sexual mode of transmission; Translations: [CONTCT W EXPOS INFECT SEXUAL TRNSMS] Onset: 11-16-2022 Episodic Nausea and vomiting (1 source) Vomiting Onset: 07-04-2024 Episodic Other nutritional; endocrine; and metabolic disorders [...] for test, result negative] Onset: 01-19-2024 Episodic Other upper respiratory disease (1 source) Nasal congestion; Translations: [Nasal congestion] Onset: 07-04-2024 Episodic Other upper respiratory disease (1 source) Nasal congestion Onset: 07-04-2024 Episodic Other upper respiratory infections (1 source) Acute upper respiratory infection, unspecified; Translations: [Acute upper respiratory infection, unspecified] Onset: 07-04-2024 Episodic Skin and subcutaneous tissue infections (1 [...] Classification Problem Date Documented Da te Episodic/Chronic Contraceptive and procreative management (6 sources) Encounter for surveillance of implantable subdermal contraceptive; Translations: [Patient encounter status] Onset: 01-19-2023 Episodic Mood disorders (1 source) Mood disorders Onset: 12-20-2023 12-20-2023 Spontaneous (3 sources) Complete or unspecified spontaneous without complication; Translations: [Miscarriage] Onset: 02-17-2024 Episodic Unclassified (1 source) CONTACT W/AND (SUSP) EXPOS COVID-19; Translations: [CONTACT W/AND (SUSP) EXPOS COVID-19] Onset: 05-07-2022 Unclassified (1 source) Onset: 09-14-2023 09-14-2023 Results Test Name Value Interpretation Reference Range Facility CBC AND AUTO DIFFon 02-17-20 ABSOLUTE BASOPHIL 0.2 X10E9/L Normal 0.0-0.2 [facility] Comment on above: Performed By: #### Terri UGALDE, FEPR, 6-4 #### [facility] ([id number]) [address] [place] [address] ABSOLUTE NEUTROPHIL 3.1 X10E9/L Normal 1.5-6.6 [facility] Comment on above: Performed By: #### Terri UGALDE, FEPR, 2275-4 #### [facility] ([id number]) [address] [place] [address] Basophils/100 WBC (Bld) 3.0 % Normal [facility] Comment on above: Performed By: #### Terri BCA, FEPR, 6-4 #### [facility] ([id number]) [address] [place] [address] Eosinophils (Bld) [#/Vol] 0.2 10*3/uL Normal 0.0-0.4 [facility] Comment on above: Performed By: #### Terri BCA, FEPR, 6-4 #### [facility] ([id number]) [address] [place] [address] Eosinophils/100 WBC (Bld) 3.4 % Normal [facility] Comment on above: Performed By: #### C AFTAB, FEPR, 2275- #### [facility] ([id number]) [address] [place] [address] Erythrocyte distribution width (RBC) [Ratio] 13.3 % Normal 11.5-15.0 [facility] Comment on above: Performed By: #### C BCA, FEPR, 2275-4 #### [facility] ([id number]) [address] [facility] [address] [place] [address] Hematocrit (Bld) [Volume fraction] 40.3 % Normal 35-47 [facility] Comment on above: Performed By: #### C BCA, FEPR, 2276-01 #### [facility] ([id number]) [address], [facility] [address] [place] [address] Hemoglobin (Bld) [Mass/Vol] 13.8 g/dL Normal 11.7-15.5 [facility] Comment on above: Performed By: #### C BCA, FEPR, 2276-01 #### [facility] ([id number]) [address] [facility] [address] [place] [address] Lymphocytes (Bld) [#/Vol] 2.1 10*3/uL Normal 1.0-3.5 [facility] Comment on above: Performed By: #### C BCA, FEPR, 2275-4 #### [facility] ([id number]) [address] [place] [address] Lymphocytes/100 WBC (Bld) 35.1 % Normal [facility] Comment on above: Performed By: #### C BCA, FEPR, 4 #### [facility] ([id number]) [address] [place] [address] MCH (RBC) [Entitic mass] 29.0 pg Normal 27-34 [facility] Comment on above: Performed By: #### C BCA, FEPR, 2275- #### [facility] ([id number]) [address] [place] [address] MCHC (RBC) [Mass/Vol] 34.2 g/dL Normal 32-36 [facility] Comment on above: Performed By: #### C BCA, FEPR, 2275- #### [facility] ([id number]) [address] [place] [address] MCV (RBC) [Entitic vol] 85 fL Normal 80-100 [facility] Comment on above: Performed By: #### C BCA, FEPR, 2275- #### [facility] ([id number]) [address] [place] [address] Monocytes (Bld) [#/Vol] 0.5 10*3/uL Normal 0-0.9 [facility] Comment on above: Performed By: #### C BCA, FEPR, 2275- #### [facility] ([id number]) [address] [place] [address] Monocytes/100 WBC (Bld) 7.5 % Normal [facility] Comment on above: Performed By: #### C BCA, FEPR, 2275- #### [facility] ([id number]) [address] [place] [address] Neutrophils/100 WBC (Bld) 51.0 % Normal [facility] Comment on above: Performed By: #### C BCA, FEPR, 2276-01 #### [facility] ([id number]) [address] [place] [address] Platelet mean volume (Bld) [Entitic vol] 8.8 fL Normal 7-12 [facility] Comment on above: Performed By: #### C BCA, FEPR, 2275- #### [facility] ([id number]) [address] [place] [address] Platelets (Bld) [#/Vol] 272 10*3/uL Normal 150-450 [facility] Comment on above: Performed By: #### C BCA, FEPR, 6-4 #### [facility] ([id number]) [address] [place] [address] RBC COUNT 4.75 X10E12/L Normal 3.80-5.20 [facility] Comment on above: Performed By: #### C BCA, FEPR, 2275-4 #### [facility] ([id number]) [address], [facility] [address] [place] [address] WBC (Bld) [#/Vol] 6.1 10*3/uL Normal 4.0-11.0 [facility] Comment on above: Performed By: #### C BCA, FEPR, 2275-4 #### [facility] ([id number]) [address] [place] [address] FERRITINon 02-17-2024 Ferritin [Mass/Vol] 50 ng/mL Normal 11-307 [facility] Comment on above: Performed By: #### C BCA, FEPR, 2275-4 #### [facility] ([id number]) [address] [place] [address] IRON PROFILEon 02-17-2024 Iron [Mass/Vol] 59 ug/dL Normal 50-170 [facility] Comment on above: Performed By: #### C BCA, FEPR, 2275-4 #### [facility] ([id number]) [address] [place] [address] IRON BINDING 384 ug/dL Normal 250-425 [facility] Comment on above: Performed By: #### C BCA, FEPR, 2275-4 #### [facility] ([id number]) [address] [place] [address] IRON SATURATION 15 % SATURATION Normal 15-50 [facility] Comment on above: Performed By: #### C BCA, FEPR, 2276-4 #### [facility] ([id number]) [address] [place] [address] HCG ( test) Ql (U)o n 01-19-2024 Beta HCG ( test) Ql (U) Negative Normal NEG [facility] Comment on above: Performed By: #### 2 106-3 #### [facility] ([id number]) [address] [place] [address] URN MACROSCOPIC NURon 2023 BILIRUBIN SUDHIR Negative Normal [facility] Comment on above: Performed By: #### N UM #### [facility] ([id number]) [address] [place] [address] BLOOD/HGB SUDHIR Trace Abnormal [facility] Comment on above: Performed By: #### N UM #### [facility] ([id number]) [address] [place] [address] GLUCOSE SUDHIR Negative Normal [facility] Comment on above: Performed By: #### N UM #### [facility] ([id number]) [address] [place] [address] KETONES SUDHIR Negative Normal [facility] Comment on above: Performed By: #### N UM #### [facility] ([id number]) [address] [place] [address] LEUKOCYTE ESTERASE SUDHIR Negative Normal [facility] Comment on above: Performed By: #### N UM #### [facility] ([id number]) [address] [place] [address] NITRITE SUDHIR Negative Normal [facility] Comment on above: Performed By: #### N UM #### [facility] ([id number]) [address] [place] [address] PH SUDHIR 6.0 Normal 5.0-8.5 [facility] Comment on above: Performed By: #### N UM #### [facility] ([id number]) [address] [place] [address] PROTEIN SUDHIR Negative Normal NEG [facility] Comment on above: Performed By: #### N UM #### [facility] ([id number]) [address] [place] [address] SPECIFIC GRAVITY SUDHIR >=1.030 Normal 1.003-1.035 [facility] Comment on above: Performed By: #### N UM #### [facility] ([id number]) [address] [place] [address] UROBILINOGEN SUDHIR 0.2 eu/dL Normal <1.1 [facility] Comment on above: Performed By: #### N UM #### [facility] ([id number]) [address] [place] [address] TBH PREG QUANT HCGon 024 HCG QUANTITATIVE <1 mIU/mL [facility] Comment on above: 5-50 0.2-1 WEEK 50-500 1-2 WEEKS 100-5,000 2-3 WEEKS 500-10,000 3-4 WEEKS 1,000-50,000 4-5 WEEKS 10,000-100,000 5-6 WEEKS 15,000-200,000 6-8 WEEKS 10,000-100,000 2-3 MONTHS [facility] CBC AUTO DIFFon 01-19-2023 BASO # 0.1 103/ul Normal 0.0-0.1 [facility] Comment on above: Performed By: #### C BC #### [facility] [address] [address] [address] Kristie Marrero Basophils/100 WBC (Bld) 0.5 % Normal 0.2-2.0 [facility] Comment on above: Performed By: #### C BC #### [facility] [address] [place] [address] Dr. Kristie Marrero EO # 0.2 103/ul Normal 0.0-0.7 [facility] Comment on above: Performed By: #### C BC #### [facility] [address] [place] [address] Dr. Kristie Marrero Eosinophils/100 WBC (Bld) 2.0 % Normal 0.9-7.0 [facility] Comment on above: Performed By: #### C BC #### [facility] [address] [place] [address] Dr. Kristie Marrero Erythrocyte distribution width (RBC) [Ratio] 12.0 % Normal 11.0-15.0 [facility] Comment on above: Performed By: #### C BC #### [facility] [address] [place] [address] Dr. Kristie Marrero Hematocrit (Bld) [Volume fraction] 38.0 % Normal 36.0-48.0 [facility] Comment on above: Performed By: #### C BC #### [facility] [address] [place] [address] Dr. Kristie Marrero Hemoglobin (Bld) [Mass/Vol] 13.3 g/dL Normal 12.0-16.0 [facility] Comment on above: Performed By: #### C BC #### [facility] [address] [place] [address] Dr. Kristie Marrero IG # 0.04 10e3/ul Critically high 0.00-0.03 [facility] Comment on above: Performed By: #### C BC #### [facility] [address] [place] [address] Dr. Kristie Marrero IG % 0.4 % Normal 0.0-0.5 [facility] Comment on above: Performed By: #### C BC #### [facility] [address] [place] [address] Dr. Kristie Marrero LYMPH # 1.3 103/ul Normal 1.2-3.8 [facility] Comment on above: Performed By: #### C BC #### [facility] [address] [place] [address] Dr. Kristie Marrero Lymphocytes/100 WBC (Bld) 12.3 % Critically low 20.5-60.0 [facility] Comment on above: Performed By: #### C BC #### [facility] [address] [place] [address] Dr. Kristie Marrero MANUAL DIFF REQ NO Normal [facility] Comment on above: Performed By: #### C BC #### [facility] [address] [place] [address] Dr. Kristie Marrero MCH (RBC) [Entitic mass] 29.2 pg Normal 26.7-34.0 [facility] Comment on above: Performed By: #### C BC #### [facility] [address] [place] [address] Dr. Kristie Marrero MCHC (RBC) [Mass/Vol] 35.0 g/dL Normal 29.9-35.2 [facility] Comment on above: Performed By: #### C BC #### [facility] [address] [place] [address] Dr. Kristie Marrero MCV (RBC) [Entitic vol] 83.3 fL Normal 81.0-99.0 [facility] Comment on above: Performed By: #### C BC #### [facility] [address] [place] [address] Dr. Kristie Marrero MONO # 0.7 103/ul Normal 0.3-0.8 [facility] Comment on above: Performed By: #### C BC #### [facility] [address] [place] [address] Dr. Kristie Marrero Monocytes/100 WBC (Bld) 7.0 % Normal 1.7-12.0 [facility] Comment on above: Performed By: #### C BC #### [facility] [address] [place] [address] Dr. Kristie Marrero NEUT # 8.2 103/ul Critically high 1.4-6.5 [facility] Comment on above: Performed By: #### C BC #### [facility] [address] [place] [address] Dr. Kristie Marrero Neutrophils/100 WBC (Bld) 77.8 % Critically high 43.0-75.0 [facility] Comment on above: Performed By: #### C BC #### [facility] [address] [place] [address] Dr. Kristie Marrero Platelet mean volume (Bld) [Entitic vol] 9.5 fL Normal 9.5-13.5 [facility] Comment on above: Performed By: #### C BC #### [facility] [address] [place] [address] Dr. Kristie Marrero PLT 265 103/ul Normal 150-450 [facility] Comment on above: Performed By: #### C BC #### [facility] [address] [place] [address] Dr. Kristie Marrero RBC 4.56 106/ul Normal 4.20-5.40 [facility] Comment on above: Performed By: #### C BC #### [facility] [address] [place] [address] Dr. Kristie Marrero WBC 10.5 103/ul Normal 4.0-11.0 [facility] Comment on above: Performed By: #### C BC #### [facility] [address] [place] [address] Dr. Kristie Marrero PREG HCG QUALon 01-19-2023 , QUAL Negative Normal NEGATIVE [facility] Comment on above: Performed By: #### P REG #### [facility] [address] [place] [address] Dr. Kristie Marrero CHLAMYDIA/GONOCOCCUS RADHA (SW AB/URINE/PAPon 11-19-2022 Chlamydia trachomatis, RADHA Negative Normal Negative [facility] Comment on above: Performed By: #### C T/NGNA #### [facility] [address] [place] [address] Dr. Kristie Marrero Neisseria gonorrhoeae, RADHA Negative Normal Negative [facility] Comment on above: Performed By: #### C T/NGNA #### [facility] [address] [address] [address] Kristie Marrero VAGINITIS/VAGINOSIS DNA PROB Syed 11-18-2022 Jenny species Negative Normal Negative [facility] Comment on above: Performed By: #### V AGINT #### [facility] [address] [address] [address] Kristie Marrero Gardnerella vaginalis Positive Abnormal Negative [facility] Comment on above: Performed By: #### V AGINT #### [facility] [address] [address] [address] Kristie Marrero Trichomonas vaginalis Negative Normal Negative [facility] Comment on above: Performed By: #### V AGINT #### [facility] [address] [place] [address] Dr. Kristie Marrero Covid-19 PCR (CVDTBH)on 04-10 SARS-CoV-2 (COVID-19) RNA RADHA+probe Ql (Unsp spec) Detected Critically abnormal NOT DETECTED [facility] Comment on above: Result Comment: This test is not yet approved or cleared by the [place] FDA. When there are no FDA-approved or cleared tests available, and other criteria are met, FDA can make tests available under an emergency access mechanism called an Emergency Use Authorization (EUA). The EUA for this test is supported by the Dealer Account Manager of Health and Human Service's (HHS's) declaration [...] used). Performed By: #### C VDTBH #### [facility] [address] [place], [place] [address] Dr. Kristie Marrero Vital Signs Date Time Vital Sign Value Performing Clinician Facility 12-20-2023 15:0 Body height 170.2 cm Summer Davalos GALO-NURSE ADMINISTRATOR [facility] 12-20-2023 15:22-0400 Body mass index (BMI) [Ratio] 38.28 kg/m2 Summer Davalos APRN-NURSE ADMINISTRATOR Work Phone: [facility] 12-20-2023 15:22-0400 Body temperature 98.29 [degF] Summer Davalos APRN-NURSE ADMINISTRATOR [facility] 12-20-2023 15:22-0400 Body weight 110.86 kg Summer Davalos APRN-NURSE ADMINISTRATOR Work Phone: [facility] 12-20-2023 15:22-0400 Diastolic blood pressure 80 mm[Hg] Summer Davalos APRN-NURSE ADMINISTRATOR Work Phone: [facility] 12-20-2023 15:22-0400 Heart rate 82 /min Summer Davalos APRN-NURSE ADMINISTRATOR Work Phone: [facility] 12-20-2023 15:22-0400 Respiratory rate 18 /min Summer Davalos APRN-NURSE ADMINISTRATOR Work Phone: [facility] 12-20-2023 15:22-0400 SaO2% (BldA) [Mass fraction] 97 % Summer Davalos APRN-NURSE ADMINISTRATOR Work Phone: [facility] 12-20-2023 15:22-0400 Systolic blood pressure 100 mm[Hg] Summer Davalos APRN-NURSE ADMINISTRATOR Work Phone: [facility] Encounters Encounter Date Encounter Type Care Provider Facility Start: 07-04-2024 End: 07-04-2024 [facility] Start: 06-28-2024 End: 06-28-2024 ambulatory MADELEINE PRETTY Not Available Start: 05-29-2024 End: 05-29-2024 ambulatory CARMEN ABBASI Not Available Start: 05-11-2024 End: 05-11-2024 ambulatory MADELEINE PRETTY Not Available Start: 02-17-2024 End: 02-18-2024 ambulatory NIVIA COLÓN [facility] Start: 02-17-2024 End: 02-17-2024 ambulatory NIVIA COLÓN [facility] Start: 02-15-2024 End: 02-15-2024 ambulatory CARMEN HOLDENZIO Not Available Start: 02-07-2024 End: 02-07-2024 ambulatory MADELEINE PRETTY Not Available Start: 01-19-2024 End: 01-19-2024 Emergency department patient visit TATY [facility] Start: 12-20-2023 End: 12-20-2023 Office outpatient visit 15 minutes Summer Davalos WAISTLINE JOINER OVERLOCK-NURSE ADMINISTRATOR Work Phone: [facility] - [facility] Comment on above: PTSD (post-traumatic stress disorder) (Primary Dx); General counseling and advice for contraceptive management; Class 2 obesity due to excess calories without serious comorbidity with body mass index (BMI) of 37.0 to 37.9 in adult Start: 12-20-2023 End: 12-20-2023 ambulatory [facility] Start: 11-21-2023 Clinisync Result Encounter Carmen Ayleen [...] Adult depression scr eening assessment Summer Davalos WAISTLINE JOINER OVERLOCK-NURSE ADMINISTRATOR Work Phone: Start: 11-21-2023 [facility] PREG QUANT HCG Core y Ayleen DO Work Phone: Start: 11-16-2022 Microscopic observat ion [Identifier] in Cervix by Cyto stain Summer Davalos WAISTLINE JOINER OVERLOCK-NURSE ADMINISTRATOR Work Phone: Plan of Treatment Date Care Activity Detail Author Start: 11-13-2029 DTaP,Tdap and Td Vaccines (7 - Td or Tdap) DTaP,Tdap and Td Vaccines (7 - Td or Tdap) [facility] Start: 11-16-2025 Screening for malign ant neoplasm of cervix Pap Smear [facility] Start: 12-19-2024 Adult BMI Screening Adult BMI Screen ing [facility] Start: 12-19-2024 Depression Screening Depression Scre ening [facility] Start: 12-19-2024 Tobacco Screening Tobacco Screening [facility] Start: 09-14-2024 Adult BMI Follow Up Plan Adult BMI Follow Up Plan [facility] Start: 06-10-2023 Influenza vaccination Influenza Vacc ine (#1) [facility] Immunizations Immunization Date Immunization Notes Care Provider Fa cility 11-13-2019 tetanus toxoid, redu clifford diphtheria toxoid, and acellular pertussis vaccine, adsorbed Summer Davalos WAISTLINE JOINER OVERLOCK-NURSE ADMINISTRATOR Work Phone: [facility] 01-22-2014 diphtheria, tetanus toxoids and acellular pertussis vaccine, unspecified formulation Summer Davalos WAISTLINE JOINER OVERLOCK-NURSE ADMINISTRATOR Work Phone: [facility] 06-22-2004 diphtheria, tetanus toxoids and acellular pertussis vaccine Summer Davalos WAISTLINE JOINER OVERLOCK-NURSE ADMINISTRATOR Work Phone: [facility] 06-22-2004 haemophilus influenz ae type b vaccine, PRP-T conjugate Summer Davalos WAISTLINE JOINER OVERLOCK-NURSE ADMINISTRATOR Work Phone: [facility] 06-22-2004 pneumococcal conjuga te vaccine, 7 valent Summer Davalos WAISTLINE JOINER OVERLOCK-NURSE ADMINISTRATOR Work Phone: [facility] 12-20-2003 DTaP-hepatitis B and poliovirus vaccine Summer Davalos WAISTLINE JOINER OVERLOCK-NURSE ADMINISTRATOR Work Phone: [facility] 12-20-2003 haemophilus influenz ae type b vaccine, PRP-T conjugate Summer Davalos WAISTLINE JOINER OVERLOCK-NURSE ADMINISTRATOR Work Phone: [facility] 12-20-2003 measles, mumps and rubella virus vaccine Summer Davalos WAISTLINE JOINER OVERLOCK-NURSE ADMINISTRATOR Work Phone: [facility] 12-20-2003 varicella virus vaccine Summer Davalos WAISTLINE JOINER OVERLOCK-NURSE ADMINISTRATOR Work Phone: [facility] 11-11-2003 DTaP-hepatitis B and poliovirus vaccine Summer Davalos WAISTLINE JOINER OVERLOCK-NURSE ADMINISTRATOR Work Phone: [facility] 11-11-2003 haemophilus influenz ae type b vaccine, PRP-T conjugate Summer Davalos WAISTLINE JOINER OVERLOCK-NURSE ADMINISTRATOR Work Phone: [facility] 11-11-2003 pneumococcal conjuga te vaccine, 7 valent Summer Davalos WAISTLINE JOINER OVERLOCK-NURSE ADMINISTRATOR Work Phone: [facility] 05-31-2003 DTaP-hepatitis B and poliovirus vaccine Summer Davalos WAISTLINE JOINER OVERLOCK-NURSE ADMINISTRATOR Work Phone: [facility] 05-31-2003 haemophilus influenz ae type b vaccine, PRP-T conjugate Summer Davalos WAISTLINE JOINER OVERLOCK-NURSE ADMINISTRATOR Work Phone: [facility] 05-31-2003 pneumococcal conjuga te vaccine, 7 valent Summer Davalos WAISTLINE JOINER OVERLOCK-NURSE ADMINISTRATOR Work Phone: [facility] 2002 hepatitis B vaccine, pediatric or pediatric/adolescent dosage Summer Davalos WAISTLINE JOINER OVERLOCK-NURSE ADMINISTRATOR Work Phone: [facility] Payers Date Payer Category Payer Medicaid [id number] 2002 Unknown [id number] 2.16.8 [id number] 2002 Unknown [id number] 2.16.8 [id number] 2002 Unknown [id number] 2.16.84 0.1.273469.3.579.2.1259 2002 Unknown [id number] 2.16.84 0.1.619183.3.579.2.1259 2002 Unknown [id number] 2.16.84 0.1.851797.3.579.2.1259 2002 Unknown [id number] 2.16.84 0.1.324681.3.579.2.1259 2002 Unknown [id number] 2.16.84 0.1.773418.3.579.2.1259 2002 Unknown [id number] 2.16.8 40.1.592275.3.579.2.1286 2002 Unknown [id number] 2.16.8 40.1.787716.3.579.2.1286 2002 Unknown [id number] 2.16.8 40.1.422613.3.579.2.1286 1982 Unknown [id number] 2.16.84 0.1.000826.3.579.2.593 1982 Unknown [id number] 2.16.84 0.1.756798.3.579.2.593 1982 Unknown [id number] 2.16.84 0.1.939966.3.579.2.593 1959 Unknown [id number] 1959 Unknown [id number] Social History Date Type Detail Facility Start: 05-19-2023 Tobacco smoking stat [facility] Tobacco smoking consumption unknown [facility] Start: 05-19-2023 Tobacco use and exposure User of smokeless tobacco [facility] Start: 11-18-2023 End: 12-20-2023 Alcohol intake Lifetime non-drinker (finding) [facility] Start: 11-11-2020 End: 05-19-2023 History of Social function [facility] Start: 11-11-2020 End: 05-19-2023 Tobacco use panel [facility] Start: 2002 Sex Assigned At Not on file [facility] Start: 01-15-2023 Tobacco smoking stat [facility] Never smoked tobacco [facility] Start: 01-15-2023 Tobacco use and exposure Smokeless tobacco non-user [facility] Frequency of Alcohol Consumption Never [facility] History of Present illness Narrative 12-20-2023 Summer Davalos, WAISTLINE JOINER OVERLOCK-NURSE ADMINISTRATOR - 12/20/2023 3:20 PM EDT Note Date [...] in adult She has her contraception and rn gyn care thru Dr Abbasi, she should continue [...] 12/20/23 1629 [facility] Note Date & Type Note Facility Evaluation note Diagnosis PTSD (post-traumatic stress disorder)- Primary Posttraumatic stress disorder General counseling and advice for contraceptive management Class 2 obesity due to excess calories without serious comorbidity with body mass index (BMI) of 37.0 to 37.9 in adult documented in this encounter [facility] Instructions Note Date & Type Note Facility Instructions Not on filedocumented in this en counter [facility] Reason for referral (narrative) Consultation (Routine) - Pending Review Note Date & Type Note Facility Reason for referral (narrati ve) Specialty Diagnoses / Procedures Referred By Vinny stoddard Referred To Contact Diagnoses PTSD (post-traumatic stress disorder) Summer Davalos APRN-FNP [address] [place] [address] Referral ID Status Reason Start Date Expiration Date Visits Requested Visits Authorized [id number] Pending Review Patient Preference 12/20/2023 12/19/2024 1 1 [facility] Summary Purpose Family History [...] and content) DATE CREATED AUTHOR 01/27/2023 [facility] DATE CREATED AUTHOR AUTHOR'S ORGANIZ ATION 01/20/2024 [facility] DATE CREATED AUTHOR AUTHOR'S ORGANIZ ATION 02/20/2024 [facility] DATE CREATED AUTHOR AUTHOR'S ORGANIZ ATION 07/01/2024 [facility] DATE CREATED AUTHOR AUTHOR'S ORGANIZ ATION 07/06/2024 [facility] Teams (unrecognized sec tion and content) Fixture Builder Relationship Specialty Start Date End Date Reid Jasmine MD PCP - General Family Medicine 08/01/23 Fixture Builder Relationship Specialty Start Date End Date Summer Davalos APRN-FNP [address] [place] [address] PCP - General Internal Medicine 09/14/23 Reason [...] BE BASED ON THE PRIMARY CLINICAL RECORDS. [facility], [facility]. provides no warranty or guarantee of the accuracy or completeness of information in this document.
== END 2024-07-30 08:33 | disposition home or self-care (01) ==
LOC: NOMS 08:32
PROVIDERS: PCP Nurse Practitioner Family; Visit Provider Obstetrics & Gynecology
DX: Z36.2 Encounter for other antenatal screening follow-up (principal)
CPT/HCPCS: 36415; 76815; 82950; 85025

== ENCOUNTER 2024-07-30 10:49 | Outpatient (OUT) | payer OTHER, SELFPAY ==
--- OUTSIDE RECORDS SUMMARY | 2024-07-30 10:57 | XMS_ITS | CCD ---
Author Organization [facility] Care Team Providers Care [employer] Name Role Phone NAMITA, DR BEAN Primary Care Unavailable KARASIK ., DR COTA Admitting Unavailabl e KARASIK ., DR COTA Attending Unavailabl e KARASIK ., DR COTA Consulting Unavailabl e SHARP, MICHAEL Consulting Unavailable INGRISLATIA AMOS Consulting Unavailable KARASIK ., DR COTA Admitting Unavailabl e REQUEST, NONE LISTED Primary Care Unavaila ble KARASIK ., DR COTA Attending Unavailabl e KARASIK ., DR COTA Consulting Unavailabl e PAY ., DR TARANGO Attending Unavailable PAY ., DR TARANGO Consulting Unavailable REQUEST, NONE LISTED Primary Care Unavaila ble PAY ., DR TARANGO Admitting Unavailable Reid Jasmine MD Primary Care Provider [phone] Suzan [employer]IPLE [employer] VALVE TESTER-CODING VALIDATOR, Summer Gutiérrez Primary Care Provider SUMMER DAVALOS Primary Care Unavailable MARQUES BUTLER Attending Unavailable KATARZYNA, NIVIA L Referring Unavailable SUZAN, SUMMER GUTIÉRREZ Primary Care Unavailable MADELEINE PRETTY Attending Unavailable CARMEN ABBASI Attending Unavailable CARMEN ABBASI Attending Unavailable MADELEINE PRETTY Attending Unavailable SUMMER DAVALOS Attending Unavailable SUMMER DAVALOS Referring Unavailable KUNSSUMMER Primary Care Unavailable KATARZYNA, NIVIA L Attending Unavailable SUMMER DAVALOS Referring Unavailable SHIMONS, SUMMER GUTIÉRREZ Primary Care Unavailable PARKER GALLO Attending Unavailable KATARZYNA, NIVIA L Referring Unavailable KATARZYNA, NIVIA L Primary Care Unavailable Unavailable Primary Care Provider Unavailabl e Allergies Allergy Classification Reported Allergen(s) Allergy Type Date of Onset Reaction(s) Facility (1 source) Ondansetron Drug Allergy [facility] Repository (2 sources) Ondansetron Drug Allergy 12-11-2022 Rash [facility] Work Phone: (4 sources) Ondansetron; Translations: [ONDANSETRON HCL] Drug Allergy 12-11-2022 Counts include 234 beds at the [facility] Medications Current Medications Medication Drug Class(es) Dates Sig (Normalized) Sig (Original) Calcium Carbonate Antacid (TUMS PO) (1 source) Calcium Carbonat e Antacid (TUMS PO) Take by mouth Active cyclobenzaprine hydrochloride 10 mg oral tablet (1 [...] tablet every 12 (twelve) hours. 0 Active MV-Min-Fe Fum-FA-DHA ( 1 PO) (1 source) MV-Min- Fe Fum-FA-DHA ( 1 PO) Take by mouth Active Problems Active Problems Problem Classification Problem [...] 02-17-20 ABSOLUTE BASOPHIL 0.2 X10E9/L Normal 0.0-0.2 [facility] Comment on above: Performed By: #### C BCA, FEPR, 2275-4 #### [facility] ([id number]) [address], [address] [place] [address] ABSOLUTE NEUTROPHIL 3.1 X10E9/L Normal 1.5-6.6 [facility] Comment on above: Performed By: #### Terri BCA, FEPR, 2275-4 #### [facility] ([id number]) [address], [address] [place] [address] Basophils/100 WBC (Bld) 3.0 % Normal [facility] Comment on above: Performed By: #### Terri BCA, FEPR, 6-4 #### [facility] ([id number]) [address] [place] [address] Eosinophils (Bld) [#/Vol] 0.2 10*3/uL Normal 0.0-0.4 [facility] Comment on above: Performed By: #### Terri BCA, FEPR, 2275-4 #### [facility] ([id number]) [address], [address] [place] [address] Eosinophils/100 WBC (Bld) 3.4 % Normal [facility] Comment on above: Performed By: #### C BCA, FEPR, 2275-4 #### [facility] ([id number]) [address], [address] [place] [address] Erythrocyte distribution width (RBC) [Ratio] 13.3 % Normal 11.5-15.0 [facility] Comment on above: Performed By: #### C BCA, FEPR, 2276-01 #### [facility] ([id number]) [address] [place] [address] Hematocrit (Bld) [Volume fraction] 40.3 % Normal 35-47 [facility] Comment on above: Performed By: #### C BCA, FEPR, 4 #### [facility] ([id number]) [address], [address] [place] [address] Hemoglobin (Bld) [Mass/Vol] 13.8 g/dL Normal 11.7-15.5 [facility] Comment on above: Performed By: #### C BCA, FEPR, 2276-01 #### [facility] ([id number]) [address], [address] [place] [address] Lymphocytes (Bld) [#/Vol] 2.1 10*3/uL Normal 1.0-3.5 [facility] Comment on above: Performed By: #### C BCA, FEPR, 2275-4 #### [facility] ([id number]) [address] [place] [address] Lymphocytes/100 WBC (Bld) 35.1 % Normal [facility] Comment on above: Performed By: #### C BCA, FEPR, 2275-4 #### [facility] ([id number]) [address], [address] [place] [address] MCH (RBC) [Entitic mass] 29.0 pg Normal 27-34 [facility] Comment on above: Performed By: #### Terri UGALDE, FEPR, 2276-01 #### [facility] ([id number]) [address] [place] [address] MCHC (RBC) [Mass/Vol] 34.2 g/dL Normal 32-36 [facility] Comment on above: Performed By: #### Terri UGALDE, FEPR, 2276-01 #### [facility] ([id number]) [address], [address] [place] [address] MCV (RBC) [Entitic vol] 85 fL Normal 80-100 [facility] Comment on above: Performed By: #### Terri UGALDE, FEPR, 2276-01 #### [facility] ([id number]) [address], [address] [place] [address] Monocytes (Bld) [#/Vol] 0.5 10*3/uL Normal 0-0.9 [facility] Comment on above: Performed By: #### Terri UGALDE, FEPR, 2276-01 #### [facility] ([id number]) [address] [place] [address] Monocytes/100 WBC (Bld) 7.5 % Normal [facility] Comment on above: Performed By: #### Terri UGALDE, FEPR, 2276-01 #### [facility] ([id number]) [address], [address] [place] [address] Neutrophils/100 WBC (Bld) 51.0 % Normal [facility] Comment on above: Performed By: #### Terri BCA, FEPR, 2276-01 #### [facility] ([id number]) [address], [address] [place] [address] Platelet mean volume (Bld) [Entitic vol] 8.8 fL Normal 7-12 [facility] Comment on above: Performed By: #### C BCA, FEPR, 6-4 #### [facility] ([id number]) [address] [place] [address] Platelets (Bld) [#/Vol] 272 10*3/uL Normal 150-450 [facility] Comment on above: Performed By: #### C BCA, FEPR, 2275-4 #### [facility] ([id number]) [address] [facility] [address] [facility] [place] [address] RBC COUNT 4.75 X10E12/L Normal 3.80-5.20 [facility] Comment on above: Performed By: #### Terri BCA, FEPR, 2275-4 #### [facility] ([id number]) [address] [place] [address] WBC (Bld) [#/Vol] 6.1 10*3/uL Normal 4.0-11.0 [facility] Comment on above: Performed By: #### Terri BCA, FEPR, 2275-4 #### [facility] ([id number]) [address] [place] [address] FERRITINon 02-17-2024 Ferritin [Mass/Vol] 50 ng/mL Normal 11-307 [facility] Comment on above: Performed By: #### Terri BCA, FEPR, 2275-4 #### [facility] ([id number]) [address] [place] [address] IRON PROFILEon 02-17-2024 Iron [Mass/Vol] 59 ug/dL Normal 50-170 [facility] Comment on above: Performed By: #### C BCA, FEPR, 2275-4 #### [facility] ([id number]) [address] [place] [address] IRON BINDING 384 ug/dL Normal 250-425 [facility] Comment on above: Performed By: #### C BCA, FEPR, 2276-4 #### [facility] ([id number]) [address] [place] [address] IRON SATURATION 15 % SATURATION Normal 15-50 [facility] Comment on above: Performed By: #### C BCA, FEPR, 2276-4 #### [facility] ([id number]) [address] [place] [address] HCG ( test) Ql (U)o n 01-19-2024 Beta HCG ( test) Ql (U) Negative Normal NEG [facility] Comment on above: Performed By: #### 2 106-3 #### [facility] ([id number]) [address] [place] [address] URN MACROSCOPIC NURon 2023 BILIRUBIN SUDHIR Negative Normal NEG [facility] Comment on above: Performed By: #### N UM #### [facility] ([id number]) [address] [place] [address] BLOOD/HGB SUDHIR Trace Abnormal NEG [facility] Comment on above: Performed By: #### N UM #### [facility] ([id number]) [address] [place] [address] GLUCOSE SUDHIR Negative Normal NEG [facility] Comment on above: Performed By: #### N UM #### [facility] ([id number]) [address] [place] [address] [place] [address] KETONES SUDHIR Negative Normal NEG [facility] Comment on above: Performed By: #### N UM #### [facility] ([id number]) [address] [place] [address] [place] [address] LEUKOCYTE ESTERASE SUDHIR Negative Normal NEG [facility] Comment on above: Performed By: #### N UM #### [facility] ([id number]) [address] [place] [address] NITRITE SUDHIR Negative Normal NEG [facility] Comment on above: Performed By: #### N UM #### [facility] ([id number]) [address] [place] [address] PH SUDHIR 6.0 Normal 5.0-8.5 [facility] Comment on above: Performed By: #### N UM #### [facility] ([id number]) [address] [place] [address] PROTEIN SUDHIR Negative Normal NEG [facility] Comment on above: Performed By: #### N UM #### [facility] ([id number]) [address] [place] [address] SPECIFIC GRAVITY SUDHIR >=1.030 Normal 1.003-1.035 [facility] Comment on above: Performed By: #### N UM #### [facility] ([id number]) [address] [place] [address] UROBILINOGEN SUDHIR 0.2 eu/dL Normal <1.1 [facility] Comment on above: Performed By: #### N UM #### [facility] ([id number]) [address] [place] [address] [facility] PREG QUANT HCGon 024 HCG QUANTITATIVE <1 mIU/mL [facility] Comment on above: 5-50 0.2-1 WEEK 50-500 1-2 WEEKS 100-5,000 2-3 WEEKS 500-10,000 3-4 WEEKS 1,000-50,000 4-5 WEEKS 10,000-100,000 5-6 WEEKS 15,000-200,000 6-8 WEEKS 10,000-100,000 2-3 MONTHS [facility] CBC AUTO DIFFon 01-19-2023 BASO # 0.1 103/ul Normal 0.0-0.1 [facility] Comment on above: Performed By: #### C BC #### [facility] [address] [address] [address] Kristie Marrero Basophils/100 WBC (Bld) 0.5 % Normal 0.2-2.0 [facility] Comment on above: Performed By: #### C BC #### [facility] [address] [address] [address] Kristie Marrero EO # 0.2 103/ul Normal 0.0-0.7 [facility] Comment on above: Performed By: #### C BC #### [facility] [address] [place] [address] Dr. Kristie Marrero Eosinophils/100 WBC (Bld) 2.0 % Normal 0.9-7.0 [facility] Comment on above: Performed By: #### C BC #### [facility] [address] [place] [address] Dr. Kristie Marrero Erythrocyte distribution width (RBC) [Ratio] 12.0 % Normal 11.0-15.0 [facility] Comment on above: Performed By: #### C BC #### [facility] [address] [place] [address] Dr. Kristie Marrero Hematocrit (Bld) [Volume fraction] 38.0 % Normal 36.0-48.0 [facility] Comment on above: Performed By: #### C BC #### [facility] [address] [place] [address] Dr. Kristie Marrero Hemoglobin (Bld) [Mass/Vol] 13.3 g/dL Normal 12.0-16.0 [facility] Comment on above: Performed By: #### C BC #### [facility] [address] [place] [address] Dr. Kristie Marrero IG # 0.04 10e3/ul Critically high 0.00-0.03 [facility] Comment on above: Performed By: #### C BC #### [facility] [address] [place] [address] Dr. Kristie Marrero IG % 0.4 % Normal 0.0-0.5 [facility] Comment on above: Performed By: #### C BC #### [facility] [address] [place] [address] Dr. Kristie Marrero LYMPH # 1.3 103/ul Normal 1.2-3.8 [facility] Comment on above: Performed By: #### C BC #### [facility] [address] [place] [address] Dr. Kristie Marrero Lymphocytes/100 WBC (Bld) 12.3 % Critically low 20.5-60.0 [facility] Comment on above: Performed By: #### C BC #### [facility] [address] [place] [address] Dr. Kristie Marrero MANUAL DIFF REQ NO Normal [facility] Comment on above: Performed By: #### C BC #### [facility] [address] [place] [address] Dr. Kristie Marrero MCH (RBC) [Entitic mass] 29.2 pg Normal 26.7-34.0 [facility] Comment on above: Performed By: #### C BC #### [facility] [address] [place] [address] Dr. Kristie Marrero MCHC (RBC) [Mass/Vol] 35.0 g/dL Normal 29.9-35.2 [facility] Comment on above: Performed By: #### C BC #### [facility] [address] [place] [address] Dr. Kristie Marrero MCV (RBC) [Entitic vol] 83.3 fL Normal 81.0-99.0 [facility] Comment on above: Performed By: #### C BC #### [facility] [address] [place] [address] Dr. Kristie Marrero MONO # 0.7 103/ul Normal 0.3-0.8 [facility] Comment on above: Performed By: #### C BC #### [facility] [address] [place] [address] Dr. Kristie Marrero Monocytes/100 WBC (Bld) 7.0 % Normal 1.7-12.0 [facility] Comment on above: Performed By: #### C BC #### [facility] [address] [place] [address] Dr. Kristie Marrero NEUT # 8.2 103/ul Critically high 1.4-6.5 [facility] Comment on above: Performed By: #### C BC #### [facility] [address] [place] [address] Dr. Kristie Marrero Neutrophils/100 WBC (Bld) 77.8 % Critically high 43.0-75.0 [facility] Comment on above: Performed By: #### C BC #### [facility] [address] [place] [address] Dr. Kristie Marrero Platelet mean volume (Bld) [Entitic vol] 9.5 fL Normal 9.5-13.5 [facility] Comment on above: Performed By: #### C BC #### [facility] [address] [place] [address] Dr. Kristie Marrero PLT 265 103/ul Normal 150-450 [facility] Comment on above: Performed By: #### C BC #### [facility] [address] [place] [address] Dr. Kristie Marrero RBC 4.56 106/ul Normal 4.20-5.40 [facility] Comment on above: Performed By: #### C BC #### [facility] [address] [place] [address] Dr. Kristie Marrero WBC 10.5 103/ul Normal 4.0-11.0 [facility] Comment on above: Performed By: #### C BC #### [facility] [address] [place] [address] Dr. Kristie Marrero PREG HCG QUALon 01-19-2023 , QUAL Negative Normal NEGATIVE [facility] Comment on above: Performed By: #### P REG #### [facility] [address] [place] [address] Dr. Kristie Marrero CHLAMYDIA/GONOCOCCUS RADHA ( AB/URINE/PAPon 11-19-2022 Chlamydia trachomatis, RADHA Negative Normal Negative [facility] Comment on above: Performed By: #### C T/NGNA #### [facility] [address] [address] [address] Kristie Marrero Neisseria gonorrhoeae, RADHA Negative Normal Negative [facility] Comment on above: Performed By: #### C T/NGNA #### [facility] [address] [address] [address] Kristie Marrero VAGINITIS/VAGINOSIS DNA PROB Syed 11-18-2022 Jenny species Negative Normal Negative [facility] Comment on above: Performed By: #### V AGINT #### [facility] [address] [place] [address] Dr. Kristie Marrero Gardnerella vaginalis Positive Abnormal Negative [facility] Comment on above: Performed By: #### V AGINT #### [facility] [address] [place] [address] Dr. Kristie Marrero Trichomonas vaginalis Negative Normal Negative [facility] Comment on above: Performed By: #### V AGINT #### [facility] [address] [place] [address] Dr. Kristie Marrero Covid-19 PCR (CVDTBH)on 04-10 SARS-CoV-2 (COVID-19) RNA RADHA+probe Ql (Unsp spec) Detected Critically abnormal NOT DETECTED [facility] Comment on above: Result Comment: This test is not yet approved or cleared by the [place] FDA. When there are no FDA-approved or cleared tests available, and other criteria are met, FDA can make tests available under an emergency access mechanism called an Emergency Use Authorization (EUA). The EUA for this test is supported by the [employer] of Health and Human Service's (HHS's) declaration [...] Performed By: #### C VDTBH #### [facility] [address] [place] [address] Dr. Kristie Marrero Vital Signs Date Time Vital Sign Value Performing Clinician Facility 12-20-2023 15:22-0400 Body height 170.2 cm Summer Davalos [employer]-CODING VALIDATOR Work Phone: [facility] 12-20-2023 15:22-0400 Body mass index (BMI) [Ratio] 38.28 kg/m2 Summer Davalos [employer] TE[employer]-CODING VALIDATOR Work Phone: [facility] 12-20-2023 15:22-0400 Body temperature 98.29 [degF] Summer Davalos [employer] VAL[employer] TESTER-CODING VALIDATOR Work Phone: [facility] 12-20-2023 15:22-0400 Body weight 110.86 kg Summer Davalos [employer] TESTER-CODING VALIDATOR Work Phone: [facility] 12-20-2023 15:22-0400 Diastolic blood pressure 80 mm[Hg] Summer Davalos [employer] TESTER-CODING VALIDATOR Work Phone: [facility] 12-20-2023 15:22-0400 Heart rate 82 /min Summer Davalos [employer] TESTER-CODING VALIDATOR Work Phone: [facility] 12-20-2023 15:22-0400 Respiratory rate 18 /min Summer Davalos [employer] TESTER-CODING VALIDATOR Work Phone: [facility] 12-20-2023 15:22-0400 SaO2% (BldA) [Mass fraction] 97 % Summer Davalos [employer] TE[employer]-CODING VALIDATOR Work Phone: [facility] 12-20-2023 15:22-0400 Systolic blood pressure 100 mm[Hg] Summer Davalos [employer] TESTER-CODING VALIDATOR Work Phone: [facility] Encounters Encounter Date Encounter Type Care Provider Facility Start: 07-30-2024 End: 07-30-2024 Bamboo flowsheet Carmen Ayleen DO Work Phone: [facility] Start: 07-30-2024 End: 07-30-2024 Bamboo flowsheet Carmen Ayleen DO Work Phone: [facility] Start: 07-04-2024 End: 07-04-2024 [facility] Start: 06-28-2024 End: 06-28-2024 ambulatory MADELEINE PRETTY Not Available Start: 05-29-2024 End: 05-29-2024 ambulatory CARMEN AYLEEN Not Available Start: 05-11-2024 End: 05-11-2024 ambulatory MADELEINE PRETTY Not Available Start: 02-17-2024 End: 02-18-2024 ambulatory [facility] Start: 02-17-2024 End: 02-17-2024 ambulatory [facility] Start: 02-15-2024 End: 02-15-2024 ambulatory CARMEN GUTIERREZO Not Available Start: 02-07-2024 End: 02-07-2024 ambulatory MADELEINE PRETTY Not Available Start: 01-19-2024 End: 01-19-2024 Emergency department patient visit [facility] Start: 12-20-2023 End: 12-20-2023 Office outpatient visit 15 minutes Summer Gutiérrez [facility] [employer] TE[employer]-CODING VALIDATOR Work Phone: [facility] Comment on above: PTSD (post-traumatic stress disorder) (Primary Dx); General counseling and advice for contraceptive management; Class 2 obesity due to excess calories without serious comorbidity with body mass index (BMI) of 37.0 to 37.9 in adult Start: 12-20-2023 End: 12-20-2023 ambulatory [facility] Start: 11-21-2023 Clinisync Result [...] Adult depression scr eening assessment Summer Davalos [employer] TE[employer]-CODING VALIDATOR Work Phone: Start: 11-21-2023 [facility] PREG QUANT HCG Core y Ayleen DO Work Phone: Start: 11-16-2022 Microscopic observat ion [Identifier] in Cervix by Cyto stain Summer Davalos [facility] Work Phone: Plan of Treatment Date Care Activity Detail Author Start: 11-13-2029 DTaP,Tdap and Td Vaccines (7 - Td or Tdap) DTaP,Tdap and Td Vaccines (7 - Td or Tdap) [facility] Start: 11-16-2025 Screening for malign ant neoplasm of cervix Pap Smear [facility] Start: 12-19-2024 Adult BMI Screening Adult BMI Screen ing [facility] Start: 12-19-2024 Depression Screening Depression Scre ening [facility] Start: 12-19-2024 Tobacco Screening Tobacco Screening [facility] Start: 09-14-2024 Adult BMI Follow Up Plan Adult BMI Follow Up Plan [facility] Start: 07-30-2024 End: 07-30-2024 Patient encounter procedure 07/30/2024 9:10 AM EDT Routine [facility] [address] [place] [id number] Carmen Abbasi, DO [address] [place] [address] Arrived [facility] Comment on above: Arrived Start: 06-10-2024 Influenza vaccination Influenza Vacc ine (#1) [facility] Start: 06-10-2023 Influenza vaccination Influenza Vacc ine (#1) [facility] Immunizations Immunization Date Immunization Notes Care Provider Fa cility 11-13-2019 tetanus toxoid, redu clifford diphtheria toxoid, and acellular pertussis vaccine, adsorbed Summer Davalos [employer] TE[employer]-[facility] Work Phone: [facility] 01-22-2014 diphtheria, tetanus toxoids and acellular pertussis vaccine, unspecified formulation Summer Davalos [employer] TE[employer]-CODING VALIDATOR Work Phone: [facility] 06-22-2004 diphtheria, tetanus toxoids and acellular pertussis vaccine Summer Davalos [employer] TE[employer]-CODING VALIDATOR Work Phone: [facility] 06-22-2004 haemophilus influenz ae type b vaccine, PRP-T conjugate Summer Davalos [employer] TE[employer]-CODING VALIDATOR Work Phone: [facility] 06-22-2004 pneumococcal conjuga te vaccine, 7 valent Summer Davalos [employer] TE[employer]-CODING VALIDATOR Work Phone: [facility] 12-20-2003 DTaP-hepatitis B and poliovirus vaccine Summer Davalos [employer] TE[employer]-CODING VALIDATOR Work Phone: [facility] 12-20-2003 haemophilus influenz ae type b vaccine, PRP-T conjugate Summer Davalos [employer] TE[employer]-CODING VALIDATOR Work Phone: [facility] 12-20-2003 measles, mumps and rubella virus vaccine Summer Davalos TRIPLE [employer]VE TE[employer]CODING VALIDATOR Work Phone: [facility] 12-20-2003 varicella virus vaccine Summer Davalos TRIPLE AIR VALVE TESTER-CODING VALIDATOR Work Phone: [facility] 11-11-2003 DTaP-hepatitis B and poliovirus vaccine Summer Davalos TRIPLE [employer] VALVE TESTER-CODING VALIDATOR Work Phone: [facility] 11-11-2003 haemophilus influenz ae type b vaccine, PRP-T conjugate Summer Davalos TRIPLE [employer] VALVE TESTER-CODING VALIDATOR Work Phone: [facility] 11-11-2003 pneumococcal conjuga te vaccine, 7 valent Summer Davalos TRIPLE [employer] VAL[employer] TESTER-CODING VALIDATOR Work Phone: [facility] 05-31-2003 DTaP-hepatitis B and poliovirus vaccine Summer Davalos TRIPLE [employer] VALVE TESTER-CODING VALIDATOR Work Phone: [facility] 05-31-2003 haemophilus influenz ae type b vaccine, PRP-T conjugate Summer Davalos TRIPLE AIR VALVE TESTER-CODING VALIDATOR Work Phone: [employer] 05-31-2003 pneumococcal conjuga te vaccine, 7 valent Summer Davalos TRIPLE AIR VALVE TESTER-CODING VALIDATOR [facility] hepatitis B vaccine, pediatric or pediatric/adolescent dosage Summer Davalos TRIPLE AIR VALVE TESTER-CODING VALIDATOR [facility] Phone[facility] Payers Date Payer Category Payer Medicaid (Managed Care) [employer] [id number] 2018 Medicaid [id number] 2002 Unknown [id number] 2.16.840.1.463096.3.579.2. 1286 2002 Unknown [id number] 2.16.840.1.706374.3.579.2. 1286 2002 Unknown [id number] 2.16.840.1.807505.3.579.2. 1259 2002 Unknown [id number] 2.16.840.1.168532.3.579.2. 1259 2002 Unknown [id number] 2.16.840.1.114152.3.579.2. 1259 2002 Unknown [id number] 2.16.840.1.307065.3.579.2. 1259 2002 Unknown [id number] 2.16.840.1.075507.3.579.2. 1259 2002 Unknown [id number] 2.16.840.1.712243.3.579.2. 1286 2002 Unknown [id number] 2.16.840.1.038698.3.579.2. 1286 2002 Unknown [id number] 2.16.840.1.810423.3.579.2. 1286 1982 Unknown [id number] 2.16.840.1.518954.3.579.2. 593 1982 Unknown [id number] 2.16.840.1.854549.3.579.2. 593 1982 Unknown [id number] 2.16.840.1.311664.3.579.2. 593 1959 Unknown [id number] 1959 Unknown [id number] Social History Date Type Detail Facility Start: 05-19-2023 Tobacco smoking status [facility] Tobacco smoking consumption unknown [facility] Start: 05-19-2023 Tobacco use and exposure User of smokeless tobacco [facility] Start: 11-18-2023 End: 06-28-2024 Alcohol intake Lifetime non-drinker (finding) [facility] Start: 05-19-2023 End: 08-01-2023 History of Social function [facility] Start: 05-19-2023 End: 08-01-2023 Tobacco use panel [facility] Start: 2002 Sex Assigned At Not on file [facility] Start: 01-15-2023 Tobacco smoking status [facility] Never smoked tobacco [facility] Start: 01-15-2023 Tobacco use and exposure Smokeless tobacco non-user [facility] Frequency of Alcohol Consumption Never [facility] Start: 02-24-2024 [facility] Start: 2002 Sex assigned at Female [facility] Start: 01-23-2024 Gender identity Identifies as female gender (finding) [facility] Start: 01-23-2024 Sexual orientation Heterosexual (finding) [facility] History of Present illness Narrative 12-20-2023 [...] in adult She has her contraception and bite block maker care thru Dr Abbasi, she should continue [...] Thrasher 12/20/23 1629 documented in this encounter [facility] [employer] [facility] [employer] [facility] Evaluation note Note Date & Type Note Facility Evaluation note Diagnosis PTSD (post-traumatic stress disorder)- Primary Posttraumatic stress disorder General counseling and advice for contraceptive management Class 2 obesity due to excess calories without serious comorbidity with body mass index (BMI) of 37.0 to 37.9 in adult [facility] Instructions Note Date & Type Note Facility Instructions Not on filedocumented in this en counter [facility] Reason for referral (narrative) Consultation (Routine) - Pending Review Note Date & Type Note Facility Reason for referral (narrati ve) Specialty Diagnoses / Procedures Referred By Vinny stoddard Referred To Contact Diagnoses PTSD (post-traumatic stress disorder) Summer Davalos APRN-FNP [address] [place] [address] Referral ID Status Reason Start Date Expiration Date Visits Requested Visits Authorized [id number] Pending Review Patient Preference 12/20/2023 12/19/2024 1 1 [facility] Summary Purpose Family History No Family History Records FoundNo Family History Records FoundNo Family History Records FoundNo Family History Records FoundNo Family History Records Found Advance Directives No Advanced Directives Records FoundNo Advanced Directives Records FoundNo Advanced Directives Records FoundNo Advanced Directives Records FoundNo Advanced Directives Records Found Additional Source Comments INFORMATION SOURCE (unrecogn ized section and content) DATE CREATED AUTHOR 01/27/2023 [facility] DATE CREATED AUTHOR AUTHOR'S ORGANIZ ATION 01/20/2024 [facility] DATE CREATED AUTHOR AUTHOR'S ORGANIZ ATION 02/20/2024 [facility] DATE CREATED AUTHOR AUTHOR'S ORGANIZ ATION 07/01/2024 [facility] DATE CREATED AUTHOR AUTHOR'S ORGANIZ ATION 07/06/2024 [facility] Care Teams (unrecognized sec tion and content) [employer] Relationship Specialty Start Date End Date Reid Jasmine MD PCP - General Family Medicine 08/01/23 [employer] Relationship Specialty Start Date End Date Summer Davalos APRN-FNP [address] [place], [place] [id number] PCP - General Internal Medicine 09/14/23 Reason [...] BE BASED ON THE PRIMARY CLINICAL RECORDS. [facility] [employer] [facility]. provides no warranty or guarantee of the accuracy or completeness of information in this document.
[2024-07-30 12:11] LABS: Basophils Absolute Auto 0.1 10^3/uL (0.0-0.1); Basophils Percent Auto 0.4 % (0.2-2.0); Eosinophils Absolute Auto 0.1 10^3/uL (0.0-0.7); Eosinophils Percent Auto 1.2 % (0.9-7.0); Hematocrit 34.4 % (36.0-48.0); Hemoglobin 11.8 g/dL (12.0-16.0); Immature Granulocytes Pct Auto 1.8 % (0.0-0.5); Lymphocytes Percent Auto 17.6 % (20.5-60.0); Mean Corpuscular HGB Conc 34.3 g/dL (29.9-35.2); Mean Corpuscular Hemoglobin 29.9 pg (26.7-34.0); Mean Corpuscular Volume 87.1 fL (81.0-99.0); Mean Platelet Volume 10.2 fL (9.5-13.5); Monocytes Absolute Auto 0.7 10^3/uL (0.3-0.8); Monocytes Percent Auto 6.4 % (1.7-12.0); Neutrophils Absolute Auto 8.2 10^3/uL (1.4-6.5); Neutrophils Percent Auto 72.6 % (43.0-75.0); Platelet Count 258 10^3/uL (150-450); Red Blood Count 3.95 10^6/uL (4.20-5.40); Red Cell Distribution Width 13.2 % (11.0-15.0); White Blood Count 11.3 10^3/uL (4.0-11.0)
[2024-07-30 12:37] LABS: Glucose 1 Hour 117 mg/dL (<130)
== END 2024-07-30 10:50 | disposition home or self-care (01) ==
LOC: LAB 10:51
PROVIDERS: PCP Nurse Practitioner Family; Visit Provider Obstetrics & Gynecology
DX: Z13.1 Encounter for screening for diabetes mellitus (principal)
CPT/HCPCS: 36415; 82950; 85025

== ENCOUNTER 2024-08-29 17:01 | Emergency (ER) | payer OTHER, SELFPAY ==
[2024-08-29 17:05] VITALS: BP 120/76; PULSE 107; TEMP 36.8; O2SAT 98
--- OUTSIDE RECORDS SUMMARY | 2024-08-29 17:27 | XMS_ITS | CCD ---
Author Organization [facility] Care Team Providers Care Historic Cl[employer] Cost[employer] Maker Name Role Phone NAMITA, DR BEAN Primary [...] Reid Jasmine MD Primary Care Provider Anoop FUEL AGENT-PRINT LINE INSPECTOR, Summer Machado Primary Care Provider SUMMER DAVALOS Primary Care Unavailable MARQUES BUTLER Attending Unavailable KATARZYNA, NIVIA L Referring Unavailable SUMMER DAVALOS Primary Care Unavailable SUMMER DAVALOS Attending Unavailable SUMMER DAVALOS Referring Unavailable SUMMER DAVALOS Primary Care Unavailable KATARZYNA, NIVIA L Attending Unavailable SUMMER DAVALOS Referring Unavailable SUMMER DAVALOS Primary Care Unavailable PARKER GALLO Attending Unavailable KATARZYNA, NIVIA L Referring Unavailable KATARZYNA, NIVIA L Primary Care Unavailable Unavailable Primary Care Provider UnavailALYSSA Cleary Attending Unavailable CARMEN BABASI Attending Unavailable CARMEN ABBASI Attending Unavailable ALYSSA PRETTY Attending Unavailable CARMEN ABBASI Attending Unavailable Allergies Allergy Classification Reported Allergen(s) Allergy Type Date of Onset Reaction(s) Facility (1 source) Ondansetron Drug Allergy [facility] Repository (7 sources) Ondansetron Drug Allergy 12-11-2022 Rash [facility] Work Phone: (4 sources) Ondansetron; Translations: [ONDANSETRON HCL] Drug Allergy 12-11-2022 [facility] Medications Current Medications Medication Drug Class(es) Dates Sig (Normalized) Sig (Original) Calcium Carbonate Antacid (TUMS PO) (6 sources) Calcium Carbonat e Antacid (TUMS PO) Take [...] 0 Active MV-Min-Fe Fum-FA-DHA ( 1 PO) (6 sources) MV-Min- Fe Fum-FA-DHA ( 1 PO) Take [...] (1 source) Vomiting Onset: 07-04-2024 Episodic Other complications of (2 sources) size does not accord with dates; Translations: [Uterine size-date discrepancy, unspecified trimester] 08-28-2024 Episodic Other nutritional; endocrine; and metabolic disorders [...] (BMI) 37.0-37.9, adult] Onset: 12-20-2023 Chronic Other and delivery including normal (2 sources) Third trimester ; Translations: [Encounter for supervision of normal , unspecified, third trimester] 08-28-2024 Episodic Other screening for suspected conditions (not mental disorders or infectious disease) (3 sources) Encounter for test, result negative; Translations: [Patient encounter status] Onset: 01-19-2024 07-30-2024 Episodic Other upper respiratory disease (1 source) Nasal congestion; Translations: [Nasal congestion] Onset: 07-04-2024 Episodic Other upper respiratory disease (1 source) Nasal congestion Onset: 07-04-2024 Episodic Other upper respiratory infections (1 source) Acute upper respiratory infection, unspecified; Translations: [Acute upper respiratory infection, unspecified] Onset: 07-04-2024 Episodic Residual codes; unclassified (2 sources) Gestation period, 24 weeks; Translations: [24 weeks gestation of ] 07-30-2024 Episodic Residual codes; unclassified (2 sources) Gestation period, 28 weeks; Translations: [28 weeks gestation of ] 08-28-2024 Episodic Skin and subcutaneous tissue infections (1 [...] Test Name Value Interpretation Reference Range Facility Urinalysis macro (dipstick) panel (U)on 08-28-2024 Bilirubin, UA Negative Negative - 4(70) +++ mg/dL [facility] Blood, UA Negative Negative - 50 Jaguar/mcL [facility] Clarity, UA Clear [facility] Color, UA Light Yellow [facility] are Glucose, UA Negative Negative - 2000(110) ++++ mg/dL [facility] Interpretation and review of laboratory results Normal [facility] Ketones, UA Negative Negative - 160(16) ++++ mg/dL [facility] Leukocytes, UA Negative Negative - 500+++ Lizeth/mcL [facility] Nitrite, UA Negative Negative - Positive [facility] pH, UA 5.5 5 - 9 [facility] Protein, UA Negative Negative - 1999(20) ++++ mg/dL [facility] Spec Grav, UA 1.015 1 - 1.03 [facility] Urobilinogen, UA 1.0 0.2 - 12 mg/dL [facility] Urinalysis macro (dipstick) panel (U)on 07-30-2024 Bilirubin, UA Negative Negative - 4(70) +++ mg/dL [facility] Blood, UA Negative Negative - 50 Jaguar/mcL [facility] Clarity, UA Clear [facility] Color, UA Yellow [facility] e Glucose, UA Negative Negative - 1999(110) ++++ mg/dL [facility] Interpretation and review of laboratory results Normal [facility] re Ketones, UA Negative Negative - 160(16) ++++ mg/dL [facility] Leukocytes, UA Negative Negative - 500+++ Lizeth/mcL [facility] Nitrite, UA Negative Negative - Positive [facility] pH, UA 6.5 5 - 9 [facility] Protein, UA Negative Negative - 1999(20) ++++ mg/dL [facility] Spec Grav, UA 1.015 1 - 1.03 [facility] Urobilinogen, UA 0.2 0.2 - 12 mg/dL [facility] Cytology Cervical or vaginal smear or scraping studyon 05-29-2024 [facility] CBC AND AUTO DIFFon 02-17-20 24 ABSOLUTE BASOPHIL 0.2 X10E9/L Normal 0.0-0.2 [facility] Comment on above: Performed By: #### C CLAUS UGALDER, 2276-4 #### [facility] ([id number]) [address], [address] [place] [address] ABSOLUTE NEUTROPHIL 3.1 X10E9/L Normal 1.5-6.6 [facility] Comment on above: Performed By: #### C AFTAB, FEPR, 2276-4 #### [facility] ([id number]) [address], [address] [place] [address] Basophils/100 WBC (Bld) 3.0 % Normal [facility] Comment on above: Performed By: #### C AFTAB, FEPR, 6-4 #### [facility] ([id number]) [address] [address] [place] [address] Eosinophils (Bld) [#/Vol] 0.2 10*3/uL Normal 0.0-0.4 [facility] Comment on above: Performed By: #### C AFTAB, FEPR, 2275-4 #### [facility] ([id number]) [address], [facility] [address] [place] [address] Eosinophils/100 WBC (Bld) 3.4 % Normal [facility] Comment on above: Performed By: #### Terri UGALDE, FEPR, 4 #### [facility] ([id number]) [address], [facility] [address] [place] [address] Erythrocyte distribution width (RBC) [Ratio] 13.3 % Normal 11.5-15.0 [facility] Comment on above: Performed By: #### Terri UGALDE, FEPR, 2275-4 #### [facility] ([id number]) [address] [address] [place] [address] Hematocrit (Bld) [Volume fraction] 40.3 % Normal 35-47 [facility] Comment on above: Performed By: #### Terri UGALDE, FEPR, 2275-4 #### [facility] ([id number]) [address] [address] [place] [address] Hemoglobin (Bld) [Mass/Vol] 13.8 g/dL Normal 11.7-15.5 [facility] Comment on above: Performed By: #### C AFTAB, FEPR, 2275-4 #### [facility] ([id number]) [address] [address] [place] [address] Lymphocytes (Bld) [#/Vol] 2.1 10*3/uL Normal 1.0-3.5 [facility] Comment on above: Performed By: #### C AFTAB FEPR, 2276-01 #### [facility] ([id number]) [address], [address] [place] [address] Lymphocytes/100 WBC (Bld) 35.1 % Normal [facility] Comment on above: Performed By: #### Terri UGALDE FEPR, 2276-01 #### [facility] ([id number]) [address], [address] [place] [address] MCH (RBC) [Entitic mass] 29.0 pg Normal 27-34 [facility] Comment on above: Performed By: #### Terri UGALDE FEPR, 2276-01 #### [facility] ([id number]) [address], [address] [place] [address] MCHC (RBC) [Mass/Vol] 34.2 g/dL Normal 32-36 [facility] Comment on above: Performed By: #### Terri UGALDE, FEPR, 2276-01 #### [facility] ([id number]) [address], [address] [place] [address] MCV (RBC) [Entitic vol] 85 fL Normal 80-100 [facility] Comment on above: Performed By: #### Terri UGALDE FEPR, 2276-01 #### [facility] ([id number]) [address], [address] [place] [address] Monocytes (Bld) [#/Vol] 0.5 10*3/uL Normal 0-0.9 [facility] Comment on above: Performed By: #### Terri UGALDE, FEPR, 2276-01 #### [facility] ([id number]) [address], [address] [place] [address] Monocytes/100 WBC (Bld) 7.5 % Normal [facility] Comment on above: Performed By: #### C BCA, FEPR, 2276-01 #### [facility] ([id number]) [address] [address] [place] [address] Neutrophils/100 WBC (Bld) 51.0 % Normal [facility] Comment on above: Performed By: #### C BCA, FEPR, 2275-4 #### [facility] ([id number]) [address], [facility] [address] [place] [address] Platelet mean volume (Bld) [Entitic vol] 8.8 fL Normal 7-12 [facility] Comment on above: Performed By: #### C BCA, FEPR, 2275-4 #### [facility] ([id number]) [address] [address] Platelets (Bld) [#/Vol] 272 10*3/uL Normal 150-450 [facility] Comment on above: Performed By: #### C BCA, FEPR, 4 #### [facility] ([id number]) [address] [address] [place] [address] RBC COUNT 4.75 X10E12/L Normal 3.80-5.20 [facility] Comment on above: Performed By: #### C BCA, FEPR, 4 #### [facility] ([id number]) [address] [address] WBC (Bld) [#/Vol] 6.1 10*3/uL Normal 4.0-11.0 [facility] Comment on above: Performed By: #### C BCA, FEPR, 2275-4 #### [facility] ([id number]) [address] [address] [place] [address] FERRITINon 02-17-2024 Ferritin [Mass/Vol] 50 ng/mL Normal 11-307 [facility] Comment on above: Performed By: #### C BCA, FEPR, 2275-4 #### [facility] ([id number]) [address], [address] [place] [address] IRON PROFILEon 02-17-2024 Iron [Mass/Vol] 59 ug/dL Normal 50-170 [facility] Comment on above: Performed By: #### C BCA, FEPR, 2276-4 #### [facility] ([id number]) [address], [address] [place] [address] IRON BINDING 384 ug/dL Normal 250-425 [facility] Comment on above: Performed By: #### C BCA, FEPR, 2276-4 #### [facility] ([id number]) [address], [address] [place] [address] IRON SATURATION 15 % SATURATION Normal 15-50 [facility] Comment on above: Performed By: #### C BCA, FEPR, 6-4 #### [facility] ([id number]) [address], [address] [place] [address] HCG ( test) Ql (U)o n 01-19-2024 Beta HCG ( test) Ql (U) Negative Normal NEG [facility] Comment on above: Performed By: #### 2 106-3 #### [facility] ([id number]) [address] [place] [address] URN MACROSCOPIC NURon 2023 BILIRUBIN SUDHIR Negative Normal NEG [facility] Comment on above: Performed By: #### N UM #### [facility] ([id number]) [address] [place] [address] BLOOD/HGB SUDHIR Trace Abnormal NEG [facility] Comment on above: Performed By: #### N UM #### [facility] ([id number]) [address] [place] [address] [place] [address] GLUCOSE SUDHIR Negative Normal NEG [facility] Comment on above: Performed By: #### N UM #### [facility] ([id number]) [address] [place] [address] [place] [address] KETONES SUDHIR Negative Normal NEG [facility] Comment on above: Performed By: #### N UM #### [facility] ([id number]) [address] [place] [address] [place] [address] LEUKOCYTE ESTERASE SUDHIR Negative Normal NEG [facility] Comment on above: Performed By: #### N UM #### [facility] ([id number]) [address] [place] [address] NITRITE SUDHIR Negative Normal NEG [facility] Comment on above: Performed By: #### N UM #### [facility] ([id number]) [address] [place] [address] PH SUDHIR 6.0 Normal 5.0-8.5 [facility] Comment on above: Performed By: #### N UM #### [facility] ([id number]) [address] [place] [address] PROTEIN SUDHIR Negative Normal NEG [facility] Comment on above: Performed By: #### N UM #### [facility] ([id number]) [address] [place] [address] [place] [address] SPECIFIC GRAVITY SUDHIR >=1.030 Normal 1.003-1.035 [facility] Comment on above: Performed By: #### N UM #### [facility] ([id number]) [address] [place] [address] [place] [address] UROBILINOGEN SUDHIR 0.2 eu/dL Normal <1.1 [facility] Comment on above: Performed By: #### N UM #### [facility] ([id number]) [address] [place] [address] [place] [address] TBH PREG QUANT HCGon 024 HCG QUANTITATIVE <1 mIU/mL [facility] Comment on above: 5-50 0.2-1 WEEK 50-500 1-2 WEEKS 100-5,000 2-3 WEEKS 500-10,000 3-4 WEEKS 1,000-50,000 4-5 WEEKS 10,000-100,000 5-6 WEEKS 15,000-200,000 6-8 WEEKS 10,000-100,000 2-3 MONTHS [facility] CBC AUTO DIFFon 01-19-2023 BASO # 0.1 103/ul Normal 0.0-0.1 [facility] Comment on above: Performed By: #### C BC #### [facility] [address] [place] [address] Dr. Kristie Marrero Basophils/100 WBC (Bld) 0.5 % Normal 0.2-2.0 [facility] Comment on above: Performed By: #### C BC #### [facility] [address] [place] [address] Dr. Kristie Marrero EO # 0.2 103/ul Normal 0.0-0.7 [facility] Comment on above: Performed By: #### C BC #### [facility] [address] [place] [address] Dr. Kristie Marrero Eosinophils/100 WBC (Bld) 2.0 % Normal 0.9-7.0 [facility] Comment on above: Performed By: #### C BC #### [facility] [address] [place] [address] Dr. Kristie Marrero Erythrocyte distribution width (RBC) [Ratio] 12.0 % Normal 11.0-15.0 [facility] Comment on above: Performed By: #### C BC #### [facility] [address] [place] [address] Dr. Kristie Marrero Hematocrit (Bld) [Volume fraction] 38.0 % Normal 36.0-48.0 [facility] Comment on above: Performed By: #### C BC #### [facility] [address] [place] [address] Dr. Kristie Marrero Hemoglobin (Bld) [Mass/Vol] 13.3 g/dL Normal 12.0-16.0 [facility] Comment on above: Performed By: #### C BC #### [facility] [address] [place] [address] Dr. Kristie Marrero IG # 0.04 10e3/ul Critically high 0.00-0.03 [facility] Comment on above: Performed By: #### C BC #### [facility] [address] [place] [address] Dr. Kristie Marrero IG % 0.4 % Normal 0.0-0.5 [facility] Comment on above: Performed By: #### C BC #### [facility] [address] [place] [address] Dr. Kristie Marrero LYMPH # 1.3 103/ul Normal 1.2-3.8 [facility] Comment on above: Performed By: #### C BC #### [facility] [address] [place] [address] Dr. Kristie Marrero Lymphocytes/100 WBC (Bld) 12.3 % Critically low 20.5-60.0 [facility] Comment on above: Performed By: #### C BC #### [facility] [address] [place] [address] Dr. Kristie Marrero MANUAL DIFF REQ NO Normal [facility] Comment on above: Performed By: #### C BC #### [facility] [address] [place] [address] Dr. Kristie Marrero MCH (RBC) [Entitic mass] 29.2 pg Normal 26.7-34.0 [facility] Comment on above: Performed By: #### C BC #### [facility] [address] [place] [address] Dr. Kristie Marrero MCHC (RBC) [Mass/Vol] 35.0 g/dL Normal 29.9-35.2 [facility] Comment on above: Performed By: #### C BC #### [facility] [address] [place] [address] Dr. Kristie Marrero MCV (RBC) [Entitic vol] 83.3 fL Normal 81.0-99.0 [facility] Comment on above: Performed By: #### C BC #### [facility] [address] [place] [address] Dr. Kristie Marrero MONO # 0.7 103/ul Normal 0.3-0.8 [facility] Comment on above: Performed By: #### C BC #### [facility] [address] [address] [address] Kristie Marrero Monocytes/100 WBC (Bld) 7.0 % Normal 1.7-12.0 [facility] Comment on above: Performed By: #### C BC #### [facility] [address] [place] [address] Dr. Kristie Marrero NEUT # 8.2 103/ul Critically high 1.4-6.5 [facility] Comment on above: Performed By: #### C BC #### [facility] [address] [place] [address] Dr. Kristie Marrero Neutrophils/100 WBC (Bld) 77.8 % Critically high 43.0-75.0 [facility] Comment on above: Performed By: #### C BC #### [facility] [address] [place] [address] Dr. Kristie Marrero Platelet mean volume (Bld) [Entitic vol] 9.5 fL Normal 9.5-13.5 [facility] Comment on above: Performed By: #### C BC #### [facility] [address] [place] [address] Dr. Kristie Marrero PLT 265 103/ul Normal 150-450 [facility] Comment on above: Performed By: #### C BC #### [facility] [address] [place] [address] Dr. Kristie Marrero RBC 4.56 106/ul Normal 4.20-5.40 [facility] Comment on above: Performed By: #### C BC #### [facility] [address] [place] [address] Dr. Kristie Marrero WBC 10.5 103/ul Normal 4.0-11.0 [facility] Comment on above: Performed By: #### C BC #### [facility] [address] [place] [address] Dr. Kristie Marrero PREG HCG QUALon 01-19-2023 , QUAL Negative Normal NEGATIVE [facility] Comment on above: Performed By: #### P REG #### [facility] [address] [place] [address] Dr. Kristie Marrero CHLAMYDIA/GONOCOCCUS RADHA (SW AB/URINE/PAPon 11-19-2022 Chlamydia trachomatis, RADHA Negative Normal Negative [facility] Comment on above: Performed By: #### C T/NGNA #### [facility] [address] [place] [address] Dr. Kristie Marrero Neisseria gonorrhoeae, RADHA Negative Normal Negative [facility] Comment on above: Performed By: #### C T/NGNA #### [facility] [address] [place] [address] Dr. Kristie Marrero VAGINITIS/VAGINOSIS DNA PROB Syed 11-18-2022 Jenny species Negative Normal Negative [facility] Comment on above: Performed By: #### V AGINT #### [facility] [address] [place] [address] Dr. Kristie Marrero Gardnerella vaginalis Positive Abnormal Negative [facility] Comment on above: Performed By: #### V AGINT #### [facility] [address] [place] [address] Dr. Kristie Marrero Trichomonas vaginalis Negative Normal Negative [facility] Comment on above: Performed By: #### V AGINT #### [facility] [address] [place] [address] Dr. Kristie Marrero Covid-19 PCR (CVDTBH)on 04-10 SARS-CoV-2 (COVID-19) RNA RADHA+probe Ql (Unsp spec) Detected Critically abnormal NOT DETECTED [facility] Comment on above: Result Comment: This test is not yet approved or cleared by the [place] FDA. When there are no FDA-approved or cleared tests available, and other criteria are met, FDA can make tests available under an emergency access mechanism called an Emergency Use Authorization (EUA). The EUA for this test is supported by the [place] of Health and Human Service's (HHS's) declaration [...] longer be used). Performed By: #### C [facility] #### [facility] [address] [place] [address] Dr. Kristie Marrero Vital Signs Date Time Vital Sign Value Performing Clinician Facility 08-28-2024 10:28-0500 Body mass index (BMI) [Ratio] 41.16 kg/m2 Alyssa ISSA Work Phone: [facility] 08-28-2024 10:28-0500 Body weight 119.2 kg Alyssa ISSA Work Phone: [facility] 08-28-2024 10:28-0500 Diastolic blood pressure 72 mm[Hg] Alyssa ISSA Work Phone: [facility] 08-28-2024 10:28-0500 Systolic blood pressure 114 mm[Hg] Alyssa ISSA Work Phone: [facility] 07-30-2024 09:39-0400 Body mass index (BMI) [Ratio] 40.41 kg/m2 Carmen Ayleen DO Work Phone: [facility] 07-30-2024 09:39-0400 Body weight 117.03 kg Carmen Ayleen DO Work Phone: [facility] 07-30-2024 09:39-0400 Diastolic blood pressure 68 mm[Hg] Carmen Ayleen DO Work Phone: [facility] 07-30-2024 09:39-0400 Systolic blood pressure 112 mm[Hg] Carmen Ayleen DO Work Phone: [facility] 12-20-2023 15:22-0400 Body height 170.2 cm [facility] Work [facility]: [facility] 12-20-2023 15:22-0400 Body mass index (BMI) [Ratio] 38.28 kg/m2 Summer Davalos FUEL AGENT-PRINT LINE INSPECTOR [facility] 12-20-2023 15:22-0400 Body temperature 98.29 [degF] Summer Davalos APRN-PRINT LINE INSPECTOR [facility] 12-20-2023 15:22-0400 Body weight 110.86 kg Summer Davalos FUEL AGENT-PRINT LINE INSPECTOR [facility] 12-20-2023 15:22-0400 Diastolic blood pressure 80 mm[Hg] Summer Davalos APRN-PRINT LINE INSPECTOR [facility] 12-20-2023 15:22-0400 Heart rate 82 /min Summer Davalos APRN-PRINT LINE INSPECTOR [facility] 12-20-2023 15:22-0400 Respiratory rate 18 /min Summer Davalos APRN-PRINT LINE INSPECTOR [facility] 12-20-2023 15:22-0400 SaO2% (BldA) [Mass fraction] 97 % Summer Davalos APRN-PRINT LINE INSPECTOR [facility] 12-20-2023 15:22-0400 Systolic blood pressure 100 mm[Hg] Summer Davalos APRN-PRINT LINE INSPECTOR Work Phone: [facility] [employer] Encounters Encounter Date Encounter Type Care Provider Facility Start: 08-28-2024 End: 08-28-2024 Bamboo flowsheet Alyssa ISSA Work Phone: [facility] Start: 08-28-2024 End: 08-28-2024 Bamboo flowsheet Alyssa ISSA Work Phone: [facility] Start: 08-28-2024 End: 08-28-2024 flow sheet Alyssa ISSA Work Phone: [facility] Comment on above: Third trimester preg mau; 28 weeks gestation of ; size inconsistent with dates Start: 07-30-2024 End: 07-30-2024 Bamboo flowsheet Carmen Ayleen DO Work Phone: [facility] Start: 07-30-2024 End: 07-30-2024 Bamboo flowsheet Carmen Ayleen DO Work Phone: [facility] Start: 07-30-2024 End: 07-30-2024 Office outpatient visit 15 minutes Carmen Ayleen DO Work Phone: [facility] Comment on above: 24 weeks gestation o f ; Diabetes mellitus screening Start: 07-30-2024 End: 07-30-2024 ambulatory CARMEN AYLEEN Not Available Start: 07-04-2024 End: 07-04-2024 ambulatory [facility] Start: 06-28-2024 End: 06-28-2024 ambulatory ALYSSA MARIA DE JESUS Not Available Start: 05-29-2024 End: 05-29-2024 ambulatory CARMEN AYLEEN Not Available Start: 05-11-2024 End: 05-11-2024 ambulatory ALYSSA MARIA DE JESUS Not Available Start: 02-17-2024 End: 02-18-2024 ambulatory [facility] Start: 02-17-2024 End: 02-17-2024 ambulatory [facility] Start: 02-15-2024 End: 02-15-2024 ambulatory CARMEN AYLEEN Not Available Start: 02-07-2024 End: 02-07-2024 ambulatory ALYSSA MARIA DE JESUS Not Available Start: 01-19-2024 End: 01-19-2024 Emergency department patient visit SUMMER DAVALOS [facility] Start: 12-20-2023 End: 12-20-2023 Office outpatient visit 15 minutes Summer Davalos FUEL AGENT-PRINT LINE INSPECTOR Work Phone: [facility] Internal Medicine - Family Medicine Comment on above: PTSD (post-traumatic stress disorder) (Primary Dx); General counseling and advice for contraceptive management; Class 2 obesity due to excess calories without serious comorbidity with body mass index (BMI) of 37.0 to 37.9 in adult Start: 12-20-2023 End: 12-20-2023 ambulatory SUMMER DAVALOS [facility] Start: 11-21-2023 Clinisync Result [...] Date Procedure Procedure Detail Performing Clinician Start: 08-28-2024 Urnls dip stick/tabl et rgnt non-auto w/o micrscp Alyssa ISSA Work Phone: Start: 07-30-2024 Urnls dip stick/tabl et rgnt non-auto w/o micrscp Carmen Ayleen DO Work Phone: Start: 05-29-2024 Cytp cerv/vag auto t hin layer prep mnl screen Carmen Ayleen DO Work Phone: Start: 12-20-2023 Adult depression scr eening assessment Summer Davalos FUEL AGENT-PRINT LINE INSPECTOR Work Phone: Start: 11-21-2023 [facility] PREG QUANT HCG Core y Ayleen DO Work Phone: Start: 11-16-2022 Microscopic observat ion [Identifier] in Cervix by Cyto stain Summer Davalos FUEL AGENT-PRINT LINE INSPECTOR Work Phone: Plan of Treatment Date Care Activity Detail Author Start: 11-13-2029 DTaP,Tdap and Td Vaccines (7 - Td or Tdap) DTaP,Tdap and Td Vaccines (7 - Td or Tdap) [facility] Start: 11-16-2025 Screening for malign ant neoplasm of cervix Pap Smear [facility] Start: 12-19-2024 Adult BMI Screening Adult BMI Screen ing [facility] Start: 12-19-2024 Depression Screening Depression Scre ening [facility] Start: 12-19-2024 Tobacco Screening Tobacco Screening [facility] Start: 09-14-2024 Adult BMI Follow Up Plan Adult BMI Follow Up Plan [facility] Start: 09-11-2024 End: 09-11-2024 Patient encounter procedure 09/11/2024 10:30 AM EST Routine [facility] [address] [place] [address] Carmen Abbasi, DO [address] [place], [place] [id number] [facility] Start: 09-11-2024 End: 09-11-2024 Professional / ancillary services management 09/11/2024 10:00 AM EST Ancillary Procedure [facility] [address] [facility] [place] [address] [facility] Start: 08-28-2024 End: 08-28-2025 US for US OB SCAN FOR GROWTH Imaging Routine size inconsistent with dates Expected: 08/28/2024 (Approximate), Expires: 08/28/2025 [facility] Work Phone: Comment on above: Expected: 08/28/2024 (Approximate), Expires: 08/28/2025 Start: 08-28-2024 End: 08-28-2024 Patient encounter procedure [facility] Comment on above: Arrived Start: 07-30-2024 End: 07-30-2025 CBC panel - Blood by Automated count CBC Lab Routine Diabetes mellitus screening Expected: 07/30/2024 (Approximate), Expires: 07/30/2025 [facility] Work Phone: Comment on above: Expected: 07/30/2024 (Approximate), Expires: 07/30/2025 Start: 07-30-2024 End: 07-30-2025 Measurement of glucose 1 hour after glucose challenge for glucose tolerance test Glucose tolerance, 1 hour Lab Routine Diabetes mellitus screening Expected: 07/30/2024 (Approximate), Expires: 07/30/2025 [facility] Comment on above: Expected: 07/30/2024 (Approximate), Expires: 07/30/2025 Start: 07-30-2024 End: 07-30-2024 Patient encounter procedure 07/30/2024 9:10 AM EDT Routine [facility] [address] [address] Carmen Abbasi, [address] [place] [address] Arrived [facility] Comment on above: Arrived Start: 06-10-2024 Influenza vaccination Influenza Vacc ine (#1) [facility] Start: 06-10-2023 Influenza vaccination Influenza Vacc ine (#1) [facility] Immunizations Immunization Date Immunization Notes Care Provider Fa cili 11-13-2019 tetanus toxoid, redu clifford diphtheria toxoid, and acellular pertussis vaccine, adsorbed Summer Davalos FUEL AGENT-PRINT LINE INSPECTOR Work Phone: [facility] 01-22-2014 diphtheria, tetanus toxoids and acellular pertussis vaccine, unspecified formulation Summer Davalos FUEL AGENT-PRINT LINE INSPECTOR Work Phone: [facility] 06-22-2004 diphtheria, tetanus toxoids and acellular pertussis vaccine Summer Davalos FUEL AGENT-PRINT LINE INSPECTOR Work Phone: [facility] 06-22-2004 haemophilus influenz ae type b vaccine, PRP-T conjugate Summer Davalos FUEL AGENT-PRINT LINE INSPECTOR Work Phone: [facility] 06-22-2004 pneumococcal conjuga te vaccine, 7 valent Summer Davalos FUEL AGENT-PRINT LINE INSPECTOR Work Phone: [facility] 12-20-2003 DTaP-hepatitis B and poliovirus vaccine Summer Davalos FUEL AGENT-PRINT LINE INSPECTOR Work Phone: [facility] 12-20-2003 haemophilus influenz ae type b vaccine, PRP-T conjugate Summer Davalos FUEL AGENT-PRINT LINE INSPECTOR Work Phone: [facility] 12-20-2003 measles, mumps and rubella virus vaccine Summer Davalos FUEL AGENT-PRINT LINE INSPECTOR Work Phone: [facility] 12-20-2003 varicella virus vaccine Summer Davalos FUEL AGENT-PRINT LINE INSPECTOR Work Phone: [facility] 11-11-2003 DTaP-hepatitis B and poliovirus vaccine Summer Davalos FUEL AGENT-PRINT LINE INSPECTOR Work Phone: [facility] 11-11-2003 haemophilus influenz ae type b vaccine, PRP-T conjugate Summer Davalos FUEL AGENT-PRINT LINE INSPECTOR Work Phone: [facility] 11-11-2003 pneumococcal conjuga te vaccine, 7 valent Summer Davalos FUEL AGENT-PRINT LINE INSPECTOR Work Phone: [facility] 05-31-2003 DTaP-hepatitis B and poliovirus vaccine Summer Davalos FUEL AGENT-PRINT LINE INSPECTOR Work Phone: [facility] 05-31-2003 haemophilus influenz ae type b vaccine, PRP-T conjugate Summer Davalos FUEL AGENT-PRINT LINE INSPECTOR Work Phone: [facility] 05-31-2003 pneumococcal conjuga te vaccine, 7 valent Summer Davalos FUEL AGENT-PRINT LINE INSPECTOR Work Phone: [facility] 2002 hepatitis B vaccine, pediatric or pediatric/adolescent dosage Summer Davalos FUEL AGENT-PRINT LINE INSPECTOR Work Phone: [facility] Payers Date Payer Category Payer Private Health Insurance [employer] [id number] 2022 Medicaid (Managed Care) [facility] [id number] 2018 Medicaid [id number] 2002 Unknown [id number] [id number]. 128 2002 Unknown [id number] 2.16.840.1.130084.3.579.2. 1286 2002 Unknown [id number] 2.16.840.1.405479.3.579.2. 1285 2002 Unknown [id number] 2.16.840.1.899706.3.579.2. 1286 2002 Unknown [id number] 2.16.840.1.696033.3.579.2. 128 2002 Unknown [id number] 2.16.840.1.557062.3.579.2. 1259 2002 Unknown [id number] 2.16.840.1.508706.3.579.2. 9 2002 Unknown [id number] 2.16.840.1.616873.3.579.2. 9 2002 Unknown [id number] 2.16.840.1.356279.3.579.2. 9 2002 Unknown [id number] 2.16.840.1.202995.3.579.2. 1259 2002 Unknown [id number] 2.16.840.1.746362.3.579.2. 1259 1982 Unknown [id number] 2.16.840.1.154364.3.579.2. 593 1982 Unknown [id number] 2.16.840.1.395395.3.579.2. 593 1982 Unknown [id number] 2.16.840.1.846534.3.579.2. 593 1959 Unknown [id number] 1959 Unknown [id number] Social History Date Type Detail Facility Start: 05-19-2023 Tobacco smoking status NHIS Tobacco smoking consumption unknown [facility] Start: 05-19-2023 Tobacco use and exposure User of smokeless tobacco [facility] Start: 11-18-2023 End: 08-28-2024 Alcohol intake Lifetime non-drinker (finding) [facility] Start: 05-19-2023 End: 11-18-2023 History of Social function [facility] Start: 05-19-2023 End: 11-18-2023 Tobacco use panel [facility] Start: 2002 Sex Assigned At Not on file [facility] Start: 01-15-2023 Tobacco smoking status [facility] Never smoked tobacco [facility] Start: 01-15-2023 Tobacco use and exposure Smokeless tobacco non-user [facility] Frequency of Alcohol Consumption Never [facility] Start: 02-24-2024 [facility] Start: 2002 Sex assigned at Female [facility] Start: 01-23-2024 Gender identity Identifies as female gender (finding) [facility] Start: 01-23-2024 Sexual orientation Heterosexual (finding) [facility] History of Present illness Narrative 08-28-2024 MAEGAN Link - 08/28/2024 10:30 AM EST Note Date & Type Note Facility 08-28-2024 History of Presen t illness Narrative Reason for Appointment: Patient ID: Lorie Martinez is a 23 y.o. female who presents for Routine Visit Patient presents today for Return OB appointment. MEDICATIONS Current Outpatient Medications Medication Instructions Calcium Carbonate Antacid (TUMS PO) Oral MV-Min-Fe Fum-FA-DHA ( 1 PO) Oral ALLERGIES Allergies Allergen Reactions Ondansetron Rash PROBLEMS Active Ambulatory Problems Diagnosis Date Noted No Active Ambulatory Problems Resolved Ambulatory Problems Diagnosis Date Noted No Resolved Ambulatory Problems Past Medical History: Diagnosis Date ADHD (attention deficit hyperactivity disorder) [facility]) HISTORY PAST MEDICAL HISTORY SOCIAL HISTORY Past Medical History: Diagnosis Date ADHD (attention deficit hyperactivity disorder) (CMS/HCC) Social History Tobacco Use Smoking status: Unknown Smokeless tobacco: Current Substance Use Topics Alcohol use: Never Drug use: Never FAMILY HISTORY Family History Problem Relation Name Age of Onset Acute myelogenous leukemia Other SURGICAL HISTORY Past Surgical History: Procedure Laterality Date SECTION, LOW TRANSVERSE 01/12/2020 CT GUIDED TRANSVAGINAL TRANSRECTAL FLUID DRAIN 08/12/2022 CT GUIDED TRANSVAGINAL TRANSRECTAL FLUID DRAIN 08/12/2022 OTHER SURGICAL HISTORY Nexplanon Removal REVIEW OF SYSTEMS Review of Systems: Review of Systems Constitutional: Negative. HENT: Negative. Eyes: Negative. Respiratory: Negative. Cardiovascular: Negative. Gastrointestinal: Negative. Genitourinary: Negative. Musculoskeletal: Negative. Skin: Negative. Neurological: Negative. All other systems reviewed and are negative. Hematological: Negative. Endocrine: Negative. Allergic/Immunologic: Negative. OBJECTIVE Objective: Physical Exam Constitutional: Appearance: Normal appearance. She is normal weight. HENT: Head: Normocephalic. Cardiovascular: Rate and Rhythm: Normal rate. Pulses: Normal pulses. Pulmonary: Effort: Pulmonary effort is normal. Breath sounds: Normal breath sounds. Abdominal: Palpations: Abdomen is soft. Musculoskeletal: General: Normal range of motion. Neurological: General: No focal deficit present. Mental Status: She is alert and oriented to person, place, and time. Psychiatric: Mood and Affect: Mood normal. Behavior: Behavior normal. Thought Content: Thought content normal. Judgment: Judgment normal. Vitals and nursing note reviewed. Vitals: Estimated body mass index is 41.16 kg/m as calculated from the following: Height as of 08/01/23: 5' 7 . Weight as of this encounter: 262 lb 12.8 oz. BP: 114/72 No LMP recorded. Patient is . ASSESSMENT & PLAN ICD-10-CM 1. Third trimester Z34.93 POCT urinalysis dipstick manually resulted 2. 28 weeks gestation of Z3A.28 POCT urinalysis dipstick manually resulted 3. size inconsistent with dates O26.849 US OB SCAN FOR GROWTH Return OB: Patient presents today for a routine obstetrics appointment. Patient is currently 28w4d . Patient states she is doing well but has complaints of being tired due to current . Patient has verbalizes frequent movement. labor precautions was discussed/given and patient was instructed to perform kick counts three times a day. Orders Placed This Encounter Procedures US OB SCAN FOR GROWTH POCT urinalysis dipstick manually resulted Follow Up: Patient is to return to office in 2 week for routine OB appointment. Documented by MAEGAN Link on behalf of: MAEGAN Link documented in this encounter [facility] History of Present illness Narrative 07-30-2024 Sara Bloom LPN - 07/30/2024 9:10 AM EDT Note Date & Type Note Facility 07-30-2024 History of Presen t illness Narrative Reason for Appointment: Patient ID: Lorie Martinez is a 23 y.o. female who presents for Routine Visit Patient presents today for Return OB appointment. MEDICATIONS Current Outpatient Medications Medication Instructions Calcium Carbonate Antacid (TUMS PO) Oral MV-Min-Fe Fum-FA-DHA ( 1 PO) Oral ALLERGIES Allergies Allergen Reactions Ondansetron Rash PROBLEMS Active Ambulatory Problems Diagnosis Date Noted No Active Ambulatory Problems Resolved Ambulatory Problems Diagnosis Date Noted No Resolved Ambulatory Problems Past Medical History: Diagnosis Date ADHD (attention deficit hyperactivity disorder) (CMS/HCC) HISTORY PAST MEDICAL HISTORY SOCIAL HISTORY Past Medical History: Diagnosis Date ADHD (attention deficit hyperactivity disorder) (CMS/HCC) Social History Tobacco Use Smoking status: Unknown Smokeless tobacco: Current Substance Use Topics Alcohol use: Never Drug use: Never FAMILY HISTORY Family History Problem Relation Name Age of Onset Acute myelogenous leukemia Other SURGICAL HISTORY Past Surgical History: Procedure Laterality Date SECTION, LOW TRANSVERSE 01/12/2020 CT GUIDED TRANSVAGINAL TRANSRECTAL FLUID DRAIN 08/12/2022 CT GUIDED TRANSVAGINAL TRANSRECTAL FLUID DRAIN 08/12/2022 OTHER SURGICAL HISTORY Nexplanon Removal REVIEW OF SYSTEMS Review of Systems: Review of Systems All other systems reviewed and are negative. OBJECTIVE Objective: Physical Exam Constitutional: Appearance: Normal appearance. She is well-developed. Cardiovascular: Rate and Rhythm: Normal rate and regular rhythm. Pulmonary: Effort: Pulmonary effort is normal. Breath sounds: Normal breath sounds. Abdominal: General: Bowel sounds are normal. There is no distension. Palpations: Abdomen is soft. Tenderness: There is no abdominal tenderness. There is no guarding or rebound. Musculoskeletal: General: No swelling. Normal range of motion. Right lower leg: No edema. Left lower leg: No edema. Neurological: Mental Status: She is alert and oriented to person, place, and time. Skin: General: Skin is warm and dry. Psychiatric: Mood and Affect: Mood normal. Behavior: Behavior normal. Vitals and nursing note reviewed. Exam conducted with a netting weaver present. Vitals: Estimated body mass index is 40.41 kg/m as calculated from the following: Height as of 08/01/23: 5' 7 . Weight as of this encounter: 258 lb. BP: 112/68 No LMP recorded. Patient is . ASSESSMENT & PLAN ICD-10-CM 1. 24 weeks gestation of Z3A.24 POCT urinalysis dipstick manually resulted 2. Diabetes mellitus screening Z13.1 CBC Glucose tolerance, 1 hour Patient presents today for a routine obstetrics appointment. Patient is currently 24w3d with a Estimated Date of Delivery: 11/16/24. Patient voiced that she had post- depression with last and discussed Celexa starting at 34 weeks gestation. Patient to return to clinic in 4 weeks for routine OB appointment. Patient had follow up anatomy scan today. Patient voiced that she missed her appointment last week with [facility] in [place] and will reach out to there office to reschedule appointment. Documented by Sara Bloom LPN on behalf of: Carmen Abbasi DO documented in this encounter [facility] History of Present illness Narrative 12-20-2023 Summer Machado GALO Davalos-PRINT LINE INSPECTOR - 12/20/2023 3:20 PM EDT Note Date [...] in adult She has her contraception and decorator street and building care thru Dr Abbasi, she should continue [...] Thrasher 12/20/23 1629 documented in this encounter [facility] Evaluation note Note Date & Type Note Facility Evaluation note Diagnosis PTSD (post-traumatic stress disorder)- Primary Posttraumatic stress disorder General counseling and advice for contraceptive management Class 2 obesity due to excess calories without serious comorbidity with body mass index (BMI) of 37.0 to 37.9 in adult documented in this encounter [facility] Evaluation note Note Date & Type Note Facility Evaluation note Diagnosis 24 weeks gestation of Diabetes mellitus screening Screening for diabetes mellitus documented in this encounter [facility] Evaluation note Note Date & Type Note Facility Evaluation note Diagnosis Third trimester state, incidental 28 weeks gestation of size inconsistent with dates documented in this encounter [facility] Instructions Note Date & Type Note Facility Instructions Not on filedocumented in this en counter [facility] Reason for referral (narrative) Consultation (Routine) - Pending Review Note Date & Type Note Facility Reason for referral (narrati ve) Specialty Diagnoses / Procedures Referred By Vinny stoddard Referred To Contact Diagnoses PTSD (post-traumatic stress disorder) Summer Davalos APRN-FNP [address] [place] [address] Referral ID Status Reason Start Date Expiration Date Visits Requested Visits Authorized [id number] Pending Review Patient Preference 12/20/2023 12/19/2024 1 1 [facility] Summary Purpose Family History No Family History Records FoundNo Family History Records FoundNo Family History Records FoundNo Family History Records FoundNo Family History Records Found Advance Directives No Advanced Directives Records FoundNo Advanced Directives Records FoundNo Advanced Directives Records FoundNo Advanced Directives Records FoundNo Advanced Directives Records Found Additional Source Comments INFORMATION SOURCE (unrecogn ized section and content) DATE CREATED AUTHOR 01/27/2023 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 [facility] [employer] [facility]. provides no warranty or guarantee of the accuracy or completeness of information in this document.
[2024-08-29 17:48] LABS: Bilirubin Urine SMALL (NEGATIVE); Blood Urine NEGATIVE (NEGATIVE); Clarity Urine CLEAR (CLEAR); Color Urine YELLOW (YELLOW); Glucose Urine UA NEGATIVE (NEGATIVE); Ketones Urine >=80 mg/dL (NEGATIVE); Leukocyte Esterase Urine NEGATIVE (NEGATIVE); Nitrite Urine NEGATIVE (NEGATIVE); Protein Urine TRACE mg/dL (NEG/TRACE); Specific Gravity Urine 1.025 (1.005-1.025)
[2024-08-29 17:48] LABS: Basophils Percent Auto 0.4 % (0.2-2.0); Eosinophils Percent Auto 0.3 % (0.9-7.0); Hemoglobin 11.7 g/dL (12.0-16.0); Immature Granulocytes Abs Auto 0.03 10^3/uL (0.00-0.03); Immature Granulocytes Pct Auto 0.3 % (0.0-0.5); Lymphocytes Percent Auto 11.2 % (20.5-60.0); Mean Corpuscular HGB Conc 34.4 g/dL (29.9-35.2); Mean Corpuscular Hemoglobin 29.4 pg (26.7-34.0); Mean Corpuscular Volume 85.4 fL (81.0-99.0); Monocytes Absolute Auto 0.7 10^3/uL (0.3-0.8); Monocytes Percent Auto 7.3 % (1.7-12.0); Neutrophils Absolute Auto 7.2 10^3/uL (1.4-6.5); Neutrophils Percent Auto 80.5 % (43.0-75.0); Platelet Count 222 10^3/uL (150-450); Red Blood Count 3.98 10^6/uL (4.20-5.40); Red Cell Distribution Width 12.9 % (11.0-15.0)
[2024-08-29 17:52] LABS: Urine Microscopic Indicated NO
--- NOTE | 2024-08-29 17:57 | ED.GENADUL1 ---
HPI HPI - General Adult General Chief complaint: Nausea/Vomiting/Diarrhea Stated complaint: vomiting 28 weeks fbc said go through er Time Seen by Provider: 08/29/24 17:05 Source: patient Mode of arrival: walk-in Limitations: no limitations History of Present Illness HPI narrative: Patient presents ED complaining of nausea vomiting and diarrhea. She is 28 weeks and 5 days. She said she started having an upset stomach and started vomiting today and she has not been able to stop. She did have some issues in the early stages of with vomiting. She was on suppositories at that time. She said her daughter was sick but she was not around her that much because she was at her grandma's house so she is not sure if she caught what ever she had or if this is due to the again. During her second trimester she was not having any issues with hyperemesis or anything like that. She still feeling baby move. She has generalized abdominal pain from the force of vomiting. No vaginal bleeding no gush of fluid. No other complaints at this time Related Data Home Medications ?Medication ?Instructions ?Recorded ?Confirmed progesterone micronized (bulk) 100 ea miscellaneous 05/22/24 % powder Previous Rx's ?Medication ?Instructions ?Recorded metoclopramide HCl 5 mg tablet 5 mg PO BID PRN nausea and 08/29/24 (Reglan) vomiting #15 tabs Allergies Allergy/AdvReac Type Severity Reaction Status Date / Time ondansetron (From Zofran) Allergy Mild Rash Verified 05/22/24 15:20 Opioid HPI Opioid Management Most Recent Opioid Data: Last Pain Scale 9 04/09/24 11:15 04/09/24 Review of Systems ROS Status of ROS 10 or more systems reviewed and unremarkable except as noted in history and below PFSH PFSH Social History Little interest or pleasure in doing things: not at all Feeling down, depressed, or hopeless: not at all Exam Narrative Exam Narrative: Time Seen: [] Vital Signs: [Per nurse's notes.] General: [Alert] Skin: [Warm, dry, no rash.] Head: [Normocephalic, atraumatic.] Neck: [Supple, trachea midline.] Eye: [Pupils are equal, round and reactive to light, extraocular movements are intact, normal conjunctiva.] Ears, nose, mouth and throat: oral mucosa moist. Cardiovascular: [Regular rate and rhythm, no murmur.] Respiratory: [Lungs are clear to auscultation, respirations are non-labored, breath sounds are equal.] Chest wall: [No tenderness, no deformity.] Gastrointestinal: [Soft, gravid nontender, non distended, normal bowel sounds.] MSK: 5 out of 5 muscle strength x 4 extremities no calf pain or edema Lymphatics: [No lymphadenopathy.] Psychiatric: [Cooperative, appropriate mood & affect.] Neurological: [Alert and oriented to person, place, time, and situation, no focal neurological deficit observed.] Constitutional Vital Signs, click to edit/add: Last Vital Signs Temp 98.3 F 08/29/24 17:05 Pulse 107 H 08/29/24 17:05 Resp 18 08/29/24 17:05 BP 120/76 08/29/24 17:05 Pulse Ox 98 08/29/24 17:05 O2 Del Method Room Air 08/29/24 17:05 Course Vital Signs Vital signs: Vital Signs Temperature 98.3 F 08/29/24 17:05 Pulse Rate 107 H 08/29/24 17:05 Respiratory Rate 18 08/29/24 17:05 Blood Pressure 120/76 08/29/24 17:05 Pulse Oximetry 98 08/29/24 17:05 Oxygen Delivery Method Room Air 08/29/24 17:05 Temperature 98.3 F 08/29/24 17:05 Pulse Rate 107 H 08/29/24 17:05 Respiratory Rate 18 08/29/24 17:05 Blood Pressure 120/76 08/29/24 17:05 Pulse Oximetry 98 08/29/24 17:05 Oxygen Delivery Method Room Air 08/29/24 17:05 Medical Decision Making MDM Narrative Medical decision making narrative: Patient's labs are nonacute. Urine ketones signifying mild dehydration. Patient is feeling much better after Reglan and IV fluids. She was tolerating ice chips p.o. I will send her nausea medication to the pharmacy. Return to ED if worsening symptoms otherwise follow-up with [facility] as scheduled. heart tones 153. Patient is comfortable care plan for home. Differential Diagnosis Differential Diagnosis: Gastroenteritis, hyperemesis, nausea vomiting, dehydration electrolyte abno Medical Records Medical records reviewed: Yes I reviewed the patient's medical records Lab Data Lab results reviewed: Yes I reviewed the patient's lab results Labs: Lab Results 08/29/24 08/29/24 Range/Units 17:37 17:40 WBC 9.0 (4.0-11.0) 10^3/uL RBC 3.98 L (4.20-5.40) 10^6/uL Hgb 11.7 L (12.0-16.0) g/dL Hct 34.0 L (36.0-48.0) % MCV 85.4 (81.0-99.0) fL MCH 29.4 (26.7-34.0) pg MCHC 34.4 (29.9-35.2) g/dL RDW 12.9 (11.0-15.0) % Plt Count 222 (150-450) 10^3/uL MPV 10.0 (9.5-13.5) fL Neut % (Auto) 80.5 H (43.0-75.0) % Lymph % (Auto) 11.2 L (20.5-60.0) % [place] % (Auto) 7.3 (1.7-12.0) % Eos % (Auto) 0.3 L (0.9-7.0) % Baso % (Auto) 0.4 (0.2-2.0) % Neut # (Auto) 7.2 H (1.4-6.5) 10^3/uL Lymph # (Auto) 1.0 L (1.2-3.8) 10^3/uL [place] # (Auto) 0.7 (0.3-0.8) 10^3/uL Eos # (Auto) 0.0 (0.0-0.7) 10^3/uL Baso # (Auto) 0.0 (0.0-0.1) 10^3/uL Abs Immat Gran (auto) 0.03 (0.00-0.03) 10^3/uL Imm/Tot Granulo (auto) 0.3 (0.0-0.5) % Sodium 139 (136-145) mmol/L Potassium 3.7 (3.5-5.1) mmol/L Chloride 103 (98-107) mmol/L Carbon Dioxide 21.9 (21.0-32.0) mmol/L Anion Gap 17.8 BUN 6.0 L (7.0-18.0) mg/dL Creatinine 0.57 (0.55-1.02) mg/dL Est GFR ( Amer) >60 (>=60 mL/min/1.73m^2) Est GFR (Non-Af Amer) >60 (>=60 mL/min/1.73m^2) BUN/Creatinine Ratio 10.5 Glucose 82 (74-106) mg/dL Calcium 8.6 (8.5-10.1) mg/dL Total Bilirubin 0.6 (0.2-1.0) mg/dL AST 12 L (15-37) U/L ALT 14 (14-59) U/L Alkaline Phosphatase 72 (46-116) U/L Total Protein 6.7 (6.4-8.2) g/dL Albumin 2.7 L (3.4-5.0) g/dL Globulin 4.0 g/dL Albumin/Globulin Ratio 0.7 Urine Color Yellow (YELLOW) Urine Clarity Clear (CLEAR) Urine pH 6.0 (5.0-9.0) Ur Specific [place] 1.025 (1.005-1.025) Urine Protein Trace (NEG/TRACE) mg/dL Urine Glucose (UA) Negative (NEGATIVE) mg/dL Urine Ketones >=80 A (NEGATIVE) mg/dL Urine Occult Blood Negative (NEGATIVE) Urine Nitrite Negative (NEGATIVE) Urine Bilirubin Small A (NEGATIVE) Urine Urobilinogen 1.0 (0.2-1.0) EU/dL Ur Leukocyte Esterase Negative (NEGATIVE) Discharge Plan Discharge Chief Complaint: Nausea/Vomiting/Diarrhea Clinical Impression: Gastroenteritis Patient Disposition: Home, Self-Care Time of Disposition Decision: 18:19 Condition: Good Mode of Transportation: Private Vehicle Prescriptions / Home Meds: New metoclopramide HCl [Reglan] 5 mg tablet 5 mg PO BID PRN (Reason: nausea and vomiting) Qty: 15 0RF No Action progesterone micronized (bulk) 100 % powder MISCELLANEOUS Print Language: Polish Instructions: Acute Nausea and Vomiting (ED) Referrals: ELISA MARES [Primary Care Provider] - 1 week
[2024-08-29] MEDS: METOCLOPRAMIDE HCL 10 MG/2 ML VIAL 5 MG IVP (17:58)
[2024-08-29] MEDS: 0.9 % SODIUM CHLORIDE 1,000 ML 1000 ML IV (17:58)
[2024-08-29 18:02] LABS: Alanine Aminotransferase 14 U/L (14-59); Albumin Globulin Ratio 0.7; Albumin Level 2.7 g/dL (3.4-5.0); Alkaline Phosphatase 72 U/L (46-116); Anion Gap 17.8; Aspartate Amino Transferase 12 U/L (15-37); BUN Creatinine Ratio 10.5; Bilirubin Total 0.6 mg/dL (0.2-1.0); Calcium 8.6 mg/dL (8.5-10.1); Carbon Dioxide 21.9 mmol/L (21.0-32.0); Chloride 103 mmol/L (98-107); Estimated GFR (African America >60 (>=60 mL/min/1.73m^2); Estimated GFR (Non-African Ame >60 (>=60 mL/min/1.73m^2); Glucose 82 mg/dL (74-106); Potassium 3.7 mmol/L (3.5-5.1); Sodium 139 mmol/L (136-145); Total Protein 6.7 g/dL (6.4-8.2)
[2024-08-29 18:36] VITALS: BP 124/71; PULSE 90; TEMP 36.4; O2SAT 98
== END 2024-08-29 18:41 | disposition home or self-care (01) ==
PROVIDERS: Emergency Provider Emergency Medicine; PCP Nurse Practitioner Family
DX: O99.613 Diseases of the digestive system complicating pregnancy, third trimester (principal); K52.9 Noninfective gastroenteritis and colitis, unspecified; Z3A.28 28 weeks gestation of pregnancy
CPT/HCPCS: 36415; 80053; 81003; 85025; 96361; 96374; 99285; J2765

== ENCOUNTER 2024-09-11 09:55 | Outpatient (OUT) | payer OTHER, SELFPAY ==
--- NOTE | 2024-09-11 09:57 | US_ITS ---
[address] [address] Patient Name: FATOUMATA VIEYRA MRN: [id number] date: 2000 Sex: F Assigned Patient Location: [facility] Current Patient Location: [facility] Accession/Order Number: [id number] Exam Date: 09/11/2024 09:57 Report Date: 09/11/2024 12:32 At the request of: MADELEINE PRETTY Procedure: US OB growth EXAMINATION: US OB growth HISTORY: INCONSISTENT SIZE COMPARISON: No relevant comparison available. FINDINGS: Heart Rate: 151 bpm Amniotic Fluid Volume: 11.9 cm, 3.7 cm Number: 1 Position: Cephalic presentation, longitudinal lie BIOMETRY: BPD: 7.79 cm; 31w2d; 60.30 % HC: 28.70 cm; 31w4d; 40.90 % AC: 27.43 cm; 31w4d; 73.40 % FL: 5.87 cm; 30w5d; 37.40 % EFW: 1739.10 g; 60.50 % FL/AC: 21.40 FL/BPD: 75.35 HC/AC: 1.05 GESTATIONAL AGE: Age by EDC: 30w4d MYESHA by EDC: 2024-11-16 Age by US: 31w2d MYESHA by US: 2024-11-11 US/US OB growth IMPRESSION: Normal interval growth Electronically authenticated by: MARQUES RAMIREZ Date: 09/11/2024 12:32
--- OUTSIDE RECORDS SUMMARY | 2024-09-11 10:14 | XMS_ITS | CCD ---
Author Organization [facility] Care Team Providers Care Certified Pharmacy Technician Name Role Phone BOYDC, DR BEAN Primary [...] Reid Jasmine MD Primary Care Provider Anoop CLOTH SANDER-ANALOG IC DESIGN ENGINEER, Summer Machado Primary Care Provider SUMMER DAVALOS [...] Care Provider UnavailALYSSA Cleary Attending Unavailable CARMEN ABBASI Attending Unavailable CARMEN ABBASI Attending Unavailable ALYSSA PRETTY Attending Unavailable CARMEN ABBASI Attending Unavailable ALYSSA PRETTY Attending Unavailable Allergies Allergy Classification Reported Allergen(s) Allergy Type Date of Onset Reaction(s) Facility (1 source) Ondansetron Drug Allergy [facility] Repository (7 sources) Ondansetron Drug Allergy 12-11-2022 Rash [facility] Work Phone: (4 sources) Ondansetron; Translations: [ONDANSETRON HCL] Drug Allergy 12-11-2022 [facility] Medications Current Medications Medication Drug [...] UA Negative Negative - 4(70) +++ mg/dL [facility] Blood, UA Negative Negative - 50 Jaguar/mcL [facility] Clarity, UA Clear [facility] Color, UA Light Yellow [facility] Glucose, UA Negative Negative - 2000(110) ++++ mg/dL [facility] Interpretation and review of laboratory results Normal [facility] Ketones, UA Negative Negative - 160(16) ++++ mg/dL [facility] Leukocytes, UA Negative Negative - 500+++ Lizeth/mcL [facility] Nitrite, UA Negative Negative - Positive [facility] pH, UA 5.5 5 - 9 [facility] Protein, UA Negative Negative - 1999(20) ++++ mg/dL [facility] Spec Grav, UA 1.015 1 - 1.03 [facility] Urobilinogen, UA 1.0 0.2 - 12 [facility]/dL [facility]inal[facility] macro (dipstick) panel (U)on 07-30-2024 Bilirubin, UA Negative Negative - 4(70) +++ mg/dL [facility] Blood, UA Negative Negative - 50 Jaguar/mcL [facility] Clarity, UA Clear [facility] Color, UA Yellow [facility] Glucose, UA Negative Negative - 1999(110) ++++ mg/dL [facility] Interpretation and review of laboratory results Normal [facility] Ketones, UA Negative Negative - 160(16) ++++ mg/dL [facility] Leukocytes, UA Negative Negative - 500+++ Lizeth/mcL [facility] Nitrite, UA Negative Negative - Positive [facility] pH, UA 6.5 5 - 9 [facility] Protein, UA Negative Negative - 1999(20) ++++ mg/dL [facility] Spec Grav, UA 1.015 1 - 1.03 [facility] Urobilinogen, UA 0.2 0.2 - 12 mg/dL [facility] Cytology Cervical or vaginal smear or scraping studyon 05-29-2024 [facility] CBC AND AUTO DIFFon 02-17-20 24 ABSOLUTE BASOPHIL 0.2 X10E9/L Normal 0.0-0.2 [facility] Comment on above: Performed By: #### C BCA, FEPR, 2276-4 #### [facility] ([id number]) [address], [address] [place] [address] ABSOLUTE NEUTROPHIL 3.1 X10E9/L Normal 1.5-6.6 [facility] Comment on above: Performed By: #### C BCA, FEPR, 2276-4 #### [facility] ([id number]) [address], [address] [place] [address] Basophils/100 WBC (Bld) 3.0 % Normal [facility] Comment on above: Performed By: #### C AFTAB, FEPR, 2275-4 #### [facility] ([id number]) [address] [place] [address] Eosinophils (Bld) [#/Vol] 0.2 10*3/uL Normal 0.0-0.4 [facility] Comment on above: Performed By: #### C AFTAB, FEPR, 2275-4 #### [facility] ([id number]) [address] [place] [address] Eosinophils/100 WBC (Bld) 3.4 % Normal [facility] Comment on above: Performed By: #### Terri UGALDE, FEPR, 2275-4 #### [facility] ([id number]) [address] [facility] [address] [place] [address] Erythrocyte distribution width (RBC) [Ratio] 13.3 % Normal 11.5-15.0 [facility] Comment on above: Performed By: #### Terri UGALDE, FEPR, 2275-4 #### [facility] ([id number]) [address] [place] [address] Hematocrit (Bld) [Volume fraction] 40.3 % Normal 35-47 [facility] Comment on above: Performed By: #### Terri UGALDE, FEPR, 2275-4 #### [facility] ([id number]) [address] [place] [address] Hemoglobin (Bld) [Mass/Vol] 13.8 g/dL Normal 11.7-15.5 [facility] Comment on above: Performed By: #### Terri BCA, FEPR, 2275-4 #### [facility] ([id number]) [address] [place] [address] Lymphocytes (Bld) [#/Vol] 2.1 10*3/uL Normal 1.0-3.5 [facility] Comment on above: Performed By: #### C AFTAB FEPR, 2276-01 #### [facility] ([id number]) [address] [place] [address] Lymphocytes/100 WBC (Bld) 35.1 % Normal [facility] Comment on above: Performed By: #### C AFTAB FEPR, 2275- #### [facility] ([id number]) [address], [address] [place] [address] MCH (RBC) [Entitic mass] 29.0 pg Normal 27-34 [facility] Comment on above: Performed By: #### Terri UGALDE FEPR, 2276-01 #### [facility] ([id number]) [address], [address] [place] [address] MCHC (RBC) [Mass/Vol] 34.2 g/dL Normal 32-36 [facility] Comment on above: Performed By: #### Terri UGALDE FEPR, 2276-01 #### [facility] ([id number]) [address] [place] [address] MCV (RBC) [Entitic vol] 85 fL Normal 80-100 [facility] Comment on above: Performed By: #### Terri UGALDE FEPR, 2276-01 #### [facility] ([id number]) [address] [place] [address] Monocytes (Bld) [#/Vol] 0.5 10*3/uL Normal 0-0.9 [facility] Comment on above: Performed By: #### C AFTAB, FEPR, 2276-01 #### [facility] ([id number]) [address], [address] [place] [address] Monocytes/100 WBC (Bld) 7.5 % Normal [facility] Comment on above: Performed By: #### Terri UGALDE, FEPR, 6-4 #### [facility] ([id number]) [address], [address] [place] [address] Neutrophils/100 WBC (Bld) 51.0 % Normal [facility] Comment on above: Performed By: #### C BCA, FEPR, 2275-4 #### [facility] ([id number]) [address] [facility] [address] [place] [address] Platelet mean volume (Bld) [Entitic vol] 8.8 fL Normal 7-12 [facility] Comment on above: Performed By: #### C BCA, FEPR, 2275-4 #### [facility] ([id number]) [address] [place] [address] Platelets (Bld) [#/Vol] 272 10*3/uL Normal 150-450 [facility] Comment on above: Performed By: #### Terri BCA, FEPR, 2275-4 #### [facility] ([id number]) [address] [place] [address] RBC COUNT 4.75 X10E12/L Normal 3.80-5.20 [facility] Comment on above: Performed By: #### C BCA, FEPR, 2275-4 #### [facility] ([id number]) [address] [place] [address] WBC (Bld) [#/Vol] 6.1 10*3/uL Normal 4.0-11.0 [facility] Comment on above: Performed By: #### C BCA, FEPR, 2275-4 #### [facility] ([id number]) [address], [address] [place] [address] FERRITINon 02-17-2024 Ferritin [Mass/Vol] 50 ng/mL Normal 11-307 [facility] Comment on above: Performed By: #### Terri BCA, FEPR, 2275-4 #### [facility] ([id number]) [address] [place] [address] IRON PROFILEon 02-17-2024 Iron [Mass/Vol] 59 ug/dL Normal 50-170 [facility] Comment on above: Performed By: #### C BCA, FEPR, 6-4 #### [facility] ([id number]) [address] [place] [address] IRON BINDING 384 ug/dL Normal 250-425 [facility] Comment on above: Performed By: #### C BCA, FEPR, 6-4 #### [facility] ([id number]) [address], [address] [place] [address] IRON SATURATION 15 % SATURATION Normal 15-50 [facility] Comment on above: Performed By: #### C BCA, FEPR, 6-4 #### [facility] ([id number]) [address] [place] [address] HCG ( test) Ql (U)o n 01-19-2024 Beta HCG ( test) Ql (U) Negative Normal NEG [facility] Comment on above: Performed By: #### 2 106-3 #### [facility] ([id number]) [address] [place] [address] [place] [address] URN MACROSCOPIC NURon 2023 BILIRUBIN SUDHIR Negative Normal NEG [facility] Comment on above: Performed By: #### N UM #### [facility] ([id number]) [address] [place] [address] BLOOD/HGB SUDHIR Trace Abnormal NEG [facility] Comment on above: Performed By: #### N UM #### [facility] ([id number]) [address] [place] [address] GLUCOSE SUDHIR Negative Normal NEG [facility] Comment on above: Performed By: #### N UM #### [facility] ([id number]) [address] [place] [address] KETONES SUDHIR Negative Normal NEG [facility] Comment on above: Performed By: #### N UM #### [facility] ([id number]) [address] [place] [address] LEUKOCYTE ESTERASE SUDHIR Negative Normal NEG [facility] Comment on above: Performed By: #### N UM #### [facility] ([id number]) [address] [place] [address] NITRITE SUDHIR Negative Normal NEG [facility] Comment on above: Performed By: #### N UM #### [facility] ([id number]) [address] [place] [address] PH SUDHIR 6.0 Normal 5.0-8.5 [facility] Comment on above: Performed By: #### N UM #### [facility] ([id number]) [address] [place] [address] PROTEIN SUDHIR Negative Normal NEG [facility] Comment on above: Performed By: #### N UM #### [facility] ([id number]) [address] [place] [address] [place] [address] SPECIFIC GRAVITY SUDHIR >=1.030 Normal 1.003-1.035 [facility] Comment on above: Performed By: #### N UM #### [facility] ([id number]) [address] [place] [address] [place] [address] UROBILINOGEN SUDHIR 0.2 eu/dL Normal <1.1 [facility] Comment on above: Performed By: #### N UM #### [facility] ([id number]) [address] [place] [address] [facility] PREG QUANT HCGon 024 HCG QUANTITATIVE <1 mIU/mL [facility] Comment on above: 5-50 0.2-1 WEEK 50-500 1-2 WEEKS 100-5,000 2-3 WEEKS 500-10,000 3-4 WEEKS 1,000-50,000 4-5 WEEKS 10,000-100,000 5-6 WEEKS 15,000-200,000 6-8 WEEKS 10,000-100,000 2-3 MONTHS [facility] CBC AUTO DIFFon 01-19-2023 BASO # 0.1 103/ul Normal 0.0-0.1 [facility] Comment on above: Performed By: #### C BC #### [facility] [address] [address] [address] Kristie Marrero Basophils/100 WBC (Bld) 0.5 % Normal 0.2-2.0 [facility] Comment on above: Performed By: #### C BC #### [facility] [address] [address] [address] Kristie Marrero EO # 0.2 103/ul Normal 0.0-0.7 [facility] Comment on above: Performed By: #### C BC #### [facility] [address] [address] [address] Kristie Marrero Eosinophils/100 WBC (Bld) 2.0 % Normal 0.9-7.0 [facility] Comment on above: Performed By: #### C BC #### [facility] [address] [address] [address] Kristie Marrero Erythrocyte distribution width (RBC) [Ratio] 12.0 % Normal 11.0-15.0 [facility] Comment on above: Performed By: #### C BC #### [facility] [address] [place] [address] Dr. Kristie Marrero Hematocrit (Bld) [Volume fraction] 38.0 % Normal 36.0-48.0 [facility] Comment on above: Performed By: #### C BC #### [facility] [address] [place] [address] Dr. Kristie Marrero Hemoglobin (Bld) [Mass/Vol] 13.3 g/dL Normal 12.0-16.0 [facility] Comment on above: Performed By: #### C BC #### [facility] [address] [address] [address] Kristie Marrero IG # 0.04 10e3/ul Critically high 0.00-0.03 [facility] Comment on above: Performed By: #### C BC #### [facility] [address] [place] [address] Dr. Kristie Marrero IG % 0.4 % Normal 0.0-0.5 [facility] Comment on above: Performed By: #### C BC #### [facility] [address] [place] [address] Dr. Kristie Marrero LYMPH # 1.3 103/ul Normal 1.2-3.8 [facility] Comment on above: Performed By: #### C BC #### [facility] [address] [place] [address] Dr. Kristie Marrero Lymphocytes/100 WBC (Bld) 12.3 % Critically low 20.5-60.0 [facility] Comment on above: Performed By: #### C BC #### [facility] [address] [place] [address] Dr. Kristie Marrero MANUAL DIFF REQ NO Normal [facility] Comment on above: Performed By: #### C BC #### [facility] [address] [place] [address] Dr. Kristie Marrero MCH (RBC) [Entitic mass] 29.2 pg Normal 26.7-34.0 [facility] Comment on above: Performed By: #### C BC #### [facility] [address] [place] [address] Dr. Kristie Marrero MCHC (RBC) [Mass/Vol] 35.0 g/dL Normal 29.9-35.2 [facility] Comment on above: Performed By: #### C BC #### [facility] [address] [place] [address] Dr. Kristie Marrero MCV (RBC) [Entitic vol] 83.3 fL Normal 81.0-99.0 [facility] Comment on above: Performed By: #### C BC #### [facility] [address] [place] [address] Dr. Kristie Marrero MONO # 0.7 103/ul Normal 0.3-0.8 [facility] Comment on above: Performed By: #### C BC #### [facility] [address] [address] [address] Kristie Marrero Monocytes/100 WBC (Bld) 7.0 % Normal 1.7-12.0 [facility] Comment on above: Performed By: #### C BC #### [facility] [address] [place] [address] Dr. Kristie Marrero NEUT # 8.2 103/ul Critically high 1.4-6.5 [facility] Comment on above: Performed By: #### C BC #### [facility] [address] [place] [address] Dr. Kristie Marrero Neutrophils/100 WBC (Bld) 77.8 % Critically high 43.0-75.0 [facility] Comment on above: Performed By: #### C BC #### [facility] [address] [place] [address] Dr. Kristie Marrero Platelet mean volume (Bld) [Entitic vol] 9.5 fL Normal 9.5-13.5 [facility] Comment on above: Performed By: #### C BC #### [facility] [address] [place] [address] Dr. Kristie Marrero PLT 265 103/ul Normal 150-450 [facility] Comment on above: Performed By: #### C BC #### [facility] [address] [place] [address] Dr. Kristie Marrero RBC 4.56 106/ul Normal 4.20-5.40 [facility] Comment on above: Performed By: #### C BC #### [facility] [address] [place] [address] Dr. Kristie Marrero WBC 10.5 103/ul Normal 4.0-11.0 [facility] Comment on above: Performed By: #### C BC #### [facility] [address] [place], [place] [address] Dr. Kristie Marrero PREG HCG QUALon 01-19-2023 , QUAL Negative Normal NEGATIVE [facility] Comment on above: Performed By: #### P REG #### [facility] [address] [place] [address] Dr. Kristie Marrero CHLAMYDIA/GONOCOCCUS RADHA (SW AB/URINE/PAPon 11-19-2022 Chlamydia trachomatis, RADHA Negative Normal Negative [facility] Comment on above: Performed By: #### C T/NGNA #### [facility] [address] [place] [address] Dr. Kristie Marrero Neisseria gonorrhoeae, RADHA Negative Normal Negative [facility] Comment on above: Performed By: #### C T/NGNA #### [facility] [address] [place] [address] Dr. Kristie Marrero VAGINITIS/VAGINOSIS DNA PROB Syed 11-18-2022 Jenny species Negative Normal Negative [facility] Comment on above: Performed By: #### V AGINT #### [facility] [address] [place] [address] Dr. Kristie Marrero Gardnerella vaginalis Positive Abnormal Negative [facility] Comment on above: Performed By: #### V AGINT #### [facility] [address] [place] [address] Dr. Kristie Marrero Trichomonas vaginalis Negative Normal Negative [facility] Comment on above: Performed By: #### V AGINT #### [facility] [address] [place] [address] Dr. Kristie Marrero Covid-19 PCR (CVDTB)on 04-10 SARS-CoV-2 (COVID-19) RNA RADHA+probe Ql (Unsp [...] for this test is supported by the Management Scientist of Health and Human Service's (HHS's) declaration [...] longer be used). Performed By: #### C [facility] #### [facility] [address] [place] [address] Dr. Kristie Marrero Vital Signs Date Time Vital Sign Value Performing Clinician Facility 08-28-2024 10:28-0500 Body mass index (BMI) [Ratio] 41.16 kg/m2 Alyssa ISSA Work Phone: [facility] 08-28-2024 10:28-0500 Body weight 119.2 kg Alyssa ISSA Work Phone: [facility] 08-28-2024 10:28-0500 Diastolic blood pressure 72 mm[Hg] Alyssa ISSA Work Phone: [facility] 08-28-2024 10:28-0500 Systolic blood pressure 114 mm[Hg] Alyssa ISSA Work Phone: [facility] 07-30-2024 09:39-0400 Body mass index (BMI) [Ratio] 40.41 kg/m2 Carmen Ayleen DO Work Phone: [facility] 07-30-2024 09:39-0400 Body weight 117.03 kg Carmen Ayleen DO Work Phone: [facility] 07-30-2024 09:39-0400 Diastolic blood pressure 68 mm[Hg] Carmen Ayleen DO Work Phone: [facility] 07-30-2024 09:39-0400 Systolic blood pressure 112 mm[Hg] Carmen Ayleen DO Work Phone: [facility] 12-20-2023 15:22-0400 Body height 170.2 cm Summer Davalos JOHN Work Phone: [facility] 12-20-2023 15:22-0400 Body mass index (BMI) [Ratio] 38.28 kg/m2 Summer Davalos APRN-ANALOG IC DESIGN ENGINEER [facility] 12-20-2023 15:22-0400 Body temperature 98.29 [degF] Summer Davalos APRN-ANALOG IC DESIGN ENGINEER [facility] 12-20-2023 15:22-0400 Body weight 110.86 kg Summer Davalos CLOTH SANDER-ANALOG IC DESIGN ENGINEER [facility] 12-20-2023 15:22-0400 Diastolic blood pressure 80 mm[Hg] Summer Davalos APRN-ANALOG IC DESIGN ENGINEER [facility] 12-20-2023 15:22-0400 Heart rate 82 /min Summer Davalos APRN-ANALOG IC DESIGN ENGINEER [facility] 12-20-2023 15:22-0400 Respiratory rate 18 /min Summer Davalos APRN-ANALOG IC DESIGN ENGINEER [facility] 12-20-2023 15:22-0400 SaO2% (BldA) [Mass fraction] 97 % Summer Davalos APRN-ANALOG IC DESIGN ENGINEER [facility] 12-20-2023 15:22-0400 Systolic blood pressure 100 mm[Hg] Summer Davalos APRN-ANALOG IC DESIGN ENGINEER Work Phone: [facility] Encounters Encounter Date Encounter Type Care Provider Facility Start: 08-28-2024 End: 08-28-2024 Bamboo flowsheet Alyssa ISSA Work Phone: [facility] Start: 08-28-2024 End: 08-28-2024 Bamboo flowsheet Alysas ISSA Work Phone: [facility] Start: 08-28-2024 End: 08-28-2024 flow sheet Alyssa ISSA Work Phone: [facility] Comment on above: Third trimester preg mau; 28 weeks gestation of ; size inconsistent with dates Start: 08-28-2024 End: 08-28-2024 ambulatory ALYSSA MARIA DE JESUS Not Available Start: 07-30-2024 End: 07-30-2024 Bamboo flowsheet Carmen Ayleen DO Work Phone: [facility] Start: 07-30-2024 End: 07-30-2024 Bamboo flowsheet Carmen Ayleen DO Work Phone: [facility] Start: 07-30-2024 End: 07-30-2024 Office outpatient visit 15 minutes Carmen Ayleen DO Work Phone: [facility] Comment on above: 24 weeks gestation o f ; Diabetes mellitus screening Start: 07-30-2024 End: 07-30-2024 ambulatory CARMEN AYLEEN Not Available Start: 07-04-2024 End: 07-04-2024 ambulatory [facility] Start: 06-28-2024 End: 06-28-2024 ambulatory ALYSSA MARIA DE JESUS Not Available Start: 05-29-2024 End: 05-29-2024 ambulatory CARMEN AYLEEN Not Available Start: 05-11-2024 End: 05-11-2024 ambulatory ALYSSA MARIA DE JESUS Not Available Start: 02-17-2024 End: 02-18-2024 ambulatory [facility] Start: 02-17-2024 End: 02-17-2024 ambulatory [facility] Start: 02-15-2024 End: 02-15-2024 ambulatory CARMEN AYLEEN Not Available Start: 02-07-2024 End: 02-07-2024 ambulatory ALYSSA MARIA DE JESUS Not Available Start: 01-19-2024 End: 01-19-2024 Emergency department patient visit SUMMER DAVALOS [facility] Start: 12-20-2023 End: 12-20-2023 Office outpatient visit 15 minutes Summer Davalos CLOTH SANDER-ANALOG IC DESIGN ENGINEER Work Phone: [facility] Comment on above: PTSD (post-traumatic stress disorder) (Primary Dx); General counseling and advice for contraceptive management; Class 2 obesity due to excess calories without serious comorbidity with body mass index (BMI) of 37.0 to 37.9 in adult Start: 12-20-2023 End: 12-20-2023 ambulatory SUMMER DAVALOS [facility] Start: 11-21-2023 Clinisync Result Encounter Carmen Ayleen DO Work Phone: [facility] Unsolicited Start: 11-21-2023 Clinisync Result Encounter Carmen Ayleen DO Work Phone: [facility] External Department Unsolicited Start: 01-19-2023 End: 01-19-[address] DOCTOR NIX Facility:[facility] Start: 11-16-2022 End: 11-16-[address] [...] auto t hin layer prep mnl screen Carmne Ayleen DO Work Phone: Start: 12-20-2023 Adult depression scr eening assessment Summer Davalos CLOTH SANDER-ANALOG IC DESIGN ENGINEER Work Phone: Start: 11-21-2023 [facility] PREG QUANT HCG Core y Ayleen DO Work Phone: Start: 11-16-2022 Microscopic observat ion [Identifier] in Cervix by Cyto stain Summer Davalos CLOTH SANDER-ANALOG IC DESIGN ENGINEER Work Phone: Plan of Treatment Date Care Activity Detail Author Start: 11-13-2029 DTaP,Tdap and Td Vaccines (7 - Td or Tdap) DTaP,Tdap and Td Vaccines (7 - Td or Tdap) [facility] Start: 11-16-2025 Screening for malign ant neoplasm of cervix Pap Smear [facility] Start: 12-19-2024 Adult BMI Screening Adult BMI Screen ing [facility] Start: 12-19-2024 Depression Screening Depression Scre ening [facility] Start: 12-19-2024 Tobacco Screening Tobacco Screening [facility] Start: 09-14-2024 Adult BMI Follow Up Plan Adult BMI Follow Up Plan [facility] [facility] Start: 09-11-2024 End: 09-11-2024 Patient encounter procedure 09/11/2024 10:30 AM EST Routine [facility] [address] [facility] [id number] Carmen Abbasi, DO [address] [place], [place] [id number] [facility] Start: 09-11-2024 End: 09-11-2024 Professional / ancillary services management 09/11/2024 10:00 AM EST Ancillary Procedure [facility] [address] [place] [id number] [facility] Start: 08-28-2024 End: 08-28-2025 US for US OB SCAN FOR GROWTH Imaging Routine size inconsistent with dates Expected: 08/28/2024 (Approximate), Expires: 08/28/2025 [facility] Work Phone: Comment on above: [...] mellitus screening Expected: 07/30/2024 (Approximate), Expires: 07/30/2025 [facility] Comment on above: Expected: 07/30/2024 (Approximate), Expires: 07/30/2025 Start: 07-30-2024 End: 07-30-2024 Patient encounter procedure 07/30/2024 9:10 AM EDT Routine [facility] [address] [facility] [place] [address] Carmen Abbasi DO [address] [facility] [place] [address] Arrived [facility] Comment on above: Arrived Start: 06-10-2024 Influenza vaccination Influenza Vacc ine (#1) [facility] Start: 06-10-2023 Influenza vaccination Influenza Vacc ine (#1) [facility] Immunizations Immunization Date Immunization Notes Care Provider Fa cility 11-13-2019 tetanus toxoid, redu clifford diphtheria toxoid, and acellular pertussis vaccine, adsorbed Summer Davalos CLOTH SANDER-ANALOG IC DESIGN ENGINEER Work Phone: [facility] 01-22-2014 diphtheria, tetanus toxoids and acellular pertussis vaccine, unspecified formulation Summer Davalos CLOTH SANDER-ANALOG IC DESIGN ENGINEER Work Phone: [facility] 06-22-2004 diphtheria, tetanus toxoids and acellular pertussis vaccine Summer Davalos CLOTH SANDER-ANALOG IC DESIGN ENGINEER Work Phone: [facility] 06-22-2004 haemophilus influenz ae type b vaccine, PRP-T conjugate Summer Davalos CLOTH SANDER-ANALOG IC DESIGN ENGINEER Work Phone: [facility] 06-22-2004 pneumococcal conjuga te vaccine, 7 valent Summer Davalos CLOTH SANDER-ANALOG IC DESIGN ENGINEER Work Phone: [facility] 12-20-2003 DTaP-hepatitis B and poliovirus vaccine Summer Davalos CLOTH SANDER-ANALOG IC DESIGN ENGINEER Work Phone: [facility] 12-20-2003 haemophilus influenz ae type b vaccine, PRP-T conjugate Summer Davalos CLOTH SANDER-ANALOG IC DESIGN ENGINEER Work Phone: [facility] 12-20-2003 measles, mumps and rubella virus vaccine Summer Davalos CLOTH SANDER-ANALOG IC DESIGN ENGINEER Work Phone: [facility] 12-20-2003 varicella virus vaccine Summer Davalos CLOTH SANDER-ANALOG IC DESIGN ENGINEER Work Phone: [facility] 11-11-2003 DTaP-hepatitis B and poliovirus vaccine Summer Davalos CLOTH SANDER-ANALOG IC DESIGN ENGINEER Work Phone: [facility] 11-11-2003 haemophilus influenz ae type b vaccine, PRP-T conjugate Summer Davalos CLOTH SANDER-ANALOG IC DESIGN ENGINEER Work Phone: [facility] 11-11-2003 pneumococcal conjuga te vaccine, 7 valent Summer Davalos CLOTH SANDER-ANALOG IC DESIGN ENGINEER Work Phone: [facility] 05-31-2003 DTaP-hepatitis B and poliovirus vaccine Summer Davalos CLOTH SANDER-ANALOG IC DESIGN ENGINEER Work Phone: [facility] 05-31-2003 haemophilus influenz ae type b vaccine, PRP-T conjugate Summer Davalos CLOTH SANDER-ANALOG IC DESIGN ENGINEER Work Phone: [facility] 05-31-2003 pneumococcal conjuga te vaccine, 7 valent Summer Davalos CLOTH SANDER-ANALOG IC DESIGN ENGINEER Work Phone: [facility] 2002 hepatitis B vaccine, pediatric or pediatric/adolescent dosage Summer Davalos CLOTH SANDER-ANALOG IC DESIGN ENGINEER Work Phone: [facility] Payers Date Payer Category Payer Private Health Insurance [employer] [id number] 2024 Unknown [id number] 2022 Medicaid (Managed Care) [facility] MEDICAID [id number] 2018 Medicaid [id number] 2002 Unknown [id number] 2.16.840.1.184171.3.579.2. 1286 2002 Unknown [id number] 2.16.840.1.538923.3.579.2. 1286 2002 Unknown [id number] 2.16.840.1.286601.3.579.2. 1286 2002 Unknown [id number] 2.16.840.1.432168.3.579.2. 1286 2002 Unknown [id number] 2.16.840.1.223506.3.579.2. 1286 2002 Unknown [id number] 2.16.840.1.119168.3.579.2. 1259 2002 Unknown [id number] 2.16.840.1.158828.3.579.2. 1259 2002 Unknown [id number] 2.16.840.1.400398.3.579.2. 1259 2002 Unknown [id number] 2.16.840.1.926456.3.579.2. 1259 2002 Unknown [id number] 2.16.840.1.704212.3.579.2. 1259 2002 Unknown [id number] 2.16.840.1.707443.3.579.2. 1259 2002 Unknown [id number] 2.16.840.1.556956.3.579.2. 1259 1982 Unknown [id number] 2.16.840.1.262284.3.579.2. 593 1982 Unknown [id number] 2.16.840.1.737398.3.579.2. 593 1982 Unknown [id number] 2.16.840.1.951918.3.579.2. 593 1959 Unknown [id number] 1959 Unknown [id number] Social History Date Type Detail Facility Start: 05-19-2023 Tobacco smoking status CTIS Tobacco smoking consumption unknown [facility] Start: 05-19-2023 Tobacco use and exposure User of smokeless tobacco [facility] Start: 11-18-2023 End: 08-28-2024 Alcohol intake Lifetime non-drinker (finding) [facility] Start: 05-19-2023 End: 11-18-2023 History of Social function [facility] Start: 05-19-2023 End: 11-18-2023 Tobacco use panel [facility] Start: 2002 Sex Assigned At Not on file [facility] Start: 01-15-2023 Tobacco smoking status [facility] Never smoked tobacco [facility] Start: 01-15-2023 Tobacco use and exposure Smokeless tobacco non-user [facility] Frequency of Alcohol Consumption Never [facility] Start: 02-24-2024 [facility] Start: 2002 Sex assigned at Female [facility] Start: 01-23-2024 Gender identity Identifies as female gender (finding) [facility] Start: 01-23-2024 Sexual orientation Heterosexual (finding) [facility] History of Present illness Narrative 08-28-2024 MAEGAN [...] Diagnosis Date ADHD (attention deficit hyperactivity disorder) ([facility]) HISTORY PAST MEDICAL HISTORY SOCIAL HISTORY Past Medical History: Diagnosis Date ADHD (attention deficit hyperactivity disorder) ([facility]) Social History Tobacco Use Smoking status: Unknown [...] by MAEGAN Link on behalf of: MAEGAN iLnk documented in this encounter [facility] History of Present illness Narrative 07-30-2024 [...] Diagnosis Date ADHD (attention deficit hyperactivity disorder) ([facility]) HISTORY PAST MEDICAL HISTORY SOCIAL HISTORY Past Medical History: Diagnosis Date ADHD (attention deficit hyperactivity disorder) ([facility]) Social History Tobacco Use Smoking status: Unknown [...] nursing note reviewed. Exam conducted with a sausage meat trimmer present. Vitals: Estimated body mass index is [...] week with [facility] in [place] and will reach out to there office to reschedule appointment. Documented by Sara Bloom LPN on behalf of: Carmen Abbasi DO documented in this encounter [facility] History of Present illness Narrative 12-20-2023 Summer Machado Anoop, GALO-ANALOG IC DESIGN ENGINEER - 12/20/2023 3:20 PM EDT Note Date [...] in adult She has her contraception and superannuation clerk care thru Dr Abbasi, she should continue [...] [id number] documented in this encounter [facility] Evaluation note Note Date & Type Note Facility Evaluation note Diagnosis PTSD (post-traumatic stress disorder)- Primary Posttraumatic stress disorder General counseling and advice for contraceptive management Class 2 obesity due to excess calories without serious comorbidity with body mass index (BMI) of 37.0 to 37.9 in adult documented in this encounter [facility] Evaluation note Note Date & Type Note Facility Evaluation note Diagnosis 24 weeks gestation of Diabetes mellitus screening Screening for diabetes mellitus documented in this encounter [facility] Evaluation note Note Date & Type Note Facility Evaluation note Diagnosis Third trimester state, incidental 28 weeks gestation of size inconsistent with dates documented in this encounter [facility] Instructions Note Date & Type Note Facility Instructions Not on filedocumented in this en counter [facility] Reason for referral (narrative) Consultation (Routine) - Pending Review Note Date & Type Note Facility Reason for referral (narrati ve) Specialty Diagnoses / Procedures Referred By Vinny stoddard Referred To Contact Diagnoses PTSD (post-traumatic stress disorder) Summer Davalos APRN-HARPER [address] [place] [address] Referral ID Status Reason Start Date Expiration Date Visits Requested Visits Authorized [id number] Pending Review Patient Preference 12/20/2023 12/19/2024 1 1 [facility] Summary Purpose Family History No Family [...] and content) DATE CREATED AUTHOR 01/27/2023 [facility] DATE CREATED AUTHOR AUTHOR'S ORGANIZ ATION 01/20/2024 [facility] DATE CREATED AUTHOR AUTHOR'S ORGANIZ ATION 02/20/2024 [facility] DATE CREATED AUTHOR AUTHOR'S ORGANIZ ATION 07/06/2024 [facility] DATE CREATED AUTHOR AUTHOR'S ORGANIZ ATION 08/30/2024 [facility] [employer] Care Teams (unrecognized sec tion and content) Certified Pharmacy Technician Relationship Specialty Start Date End Date Reid Jasmine MD PCP - General Family Medicine 08/01/23 Certified Pharmacy Technician Relationship Specialty Start Date End Date Summer Davalos, CLOTH SANDER-ANALOG IC DESIGN ENGINEER [address] [id number] PCP - General Internal Medicine 09/14/23 Reason [...] BE BASED ON THE PRIMARY CLINICAL RECORDS. [employer] provides no warranty or guarantee of the accuracy or completeness of information in this document.
== END 2024-09-11 09:56 | disposition home or self-care (01) ==
LOC: NOMS 09:56
PROVIDERS: PCP Nurse Practitioner Family; Visit Provider Physician Assistant
DX: O26.843 Uterine size-date discrepancy, third trimester (principal); Z3A.30 30 weeks gestation of pregnancy
CPT/HCPCS: 76816

== ENCOUNTER 2024-09-29 13:13 | Outpatient (OUT) | payer OTHER, SELFPAY ==
--- OUTSIDE RECORDS SUMMARY | 2024-09-29 13:18 | XMS_ITS | CCD ---
Author Organization [facility] Care Team Providers Care Gage Maker Name Role Phone NAMITA, DR BEAN [...] Unavailable Reid Jasmine MD Primary Care Provider Suzan CIGAR SORTER-SPEECH AND LANGUAGE TUTOR, Summer Gutiérrez Primary Care Provider SUMMER DAVALOS Primary Care Unavailable MARQUES BUTLER Attending Unavailable KATARZYNA, NIVIA L Referring Unavailable SUZAN, SUMMER GUTIÉRREZ Primary Care Unavailable SUMMER DAVALOS Attending Unavailable SUMMER DAVALOS Referring Unavailable SUMMER DAVALOS Primary Care Unavailable KATARZYNA, NIVIA L Attending Unavailable SUMMER DAVALOS Referring Unavailable SUMMER DAVALOS Primary Care Unavailable PARKER GALLO Attending Unavailable KATARZYNA, NIVIA L Referring Unavailable KATARZYNA, NIVIA L Primary Care Unavailable Unavailable Primary Care Provider Unavailabl e MARIA DE JESUSALYSSA ALMANZAR Attending Unavailable AYLEEN, CARMEN Attending Unavailable MARIA DE JESUS, ALYSSA Attending Unavailable MARIA DE JESUS, ALYSSA Attending Unavailable AYLEEN, CARMEN Attending Unavailable MARIA DE JESUS, ALYSSA Attending Unavailable AYLEEN, CARMEN Attending Unavailable AYLEEN, CARMEN Attending Unavailable Allergies Allergy Classification Reported Allergen(s) Allergy Type Date of Onset Reaction(s) Facility (1 source) Ondansetron Drug Allergy [facility] Repository (20 sources) Ondansetron Drug Allergy 12-11-2022 Salma [facility] Work Phone: (4 sources) Ondansetron; Translations: [ONDANSETRON HCL] Drug Allergy 12-11-2022 Salma [facility] Medications Current Medications Medication Drug Class(es) Dates Sig (Normalized) Sig (Original) Calcium Carbonate Antacid (TUMS PO) (14 sources) Calcium Carbonat e Antacid (TUMS PO) Take by mouth Active citalopram 20 mg oral tablet (2 sources) Serotonin Reuptake Inhibitor Start: 09-25-2024 End: 09-25-2025 take 1 tablet by mouth once daily citalopram (CeleXA) 20 MG tablet Indications: Anxiety with depression Take 1 tablet (20 mg) by mouth Daily 30 tablet 11 09/25/2024 09/25/2025 Active cyclobenzaprine hydrochloride 10 mg oral tablet [...] 0 Active MV-Min-Fe Fum-FA-DHA ( 1 PO) (14 sources) MV-Min- Fe Fum-FA-DHA ( 1 PO) Take by mouth Active Completed/Discontinued Medications Medication Drug Class(es) Dates Sig (Normalized) Sig (Original) Progesterone (8 sources) Progesterone Start: 04-05-2024 End: 06-28-2024 Progesterone Micronized (progesterone, bulk,) powder 04/05/2024 06/28/2024 Discontinued Start: 04-05-2024 Progesterone M icronized (progesterone, bulk,) powder 04/05/2024 Active Problems Active Problems Problem Classification Problem Date Documented Date Episodic/Chronic Anxiety disorders (6 sources) Posttraumatic stress disorder; Translations: [Post-traumatic stress disorder, unspecified] Onset: 12-20-2023 12-20-2023 Chronic Fever of unknown origin (1 source) Fever Onset: 07-04-2024 Episodic Nausea and vomiting (1 source) Vomiting [...] 12-20-2023 Chronic Other and delivery including normal (10 sources) Third trimester ; Translations: [Encounter for supervision of normal , unspecified, third trimester] Onset: 09-25-2024 08-28-2024 Episodic Other screening for suspected conditions (not mental disorders or infectious disease) (5 sources) Encounter for test, result negative; Translations: [Patient encounter status] Onset: 01-19-2024 4 Episodic Other upper respiratory disease (1 source) [...] [28 weeks gestation of ] 08-28-2024 Episodic Residual codes; unclassified (2 sources) Gestation period, 30 weeks; Translations: [30 weeks gestation of ] 09-11-2024 Episodic Residual codes; unclassified (4 sources) Gestation period, 32 weeks; Translations: [32 weeks gestation of ] Onset: 09-25-2024 09-25-2024 Episodic Skin and subcutaneous tissue infections (1 [...] Other Problems Problem Classification Problem Date Documented Date Episodic/Chronic Contraceptive and procreative management (6 sources) Encounter for surveillance of implantable subdermal contraceptive; Translations: [Patient encounter status] Onset: 01-19-2023 Episodic Immunizations and screening for infectious disease (6 sources) Contact with and (suspected) exposure to infections with a predominantly sexual mode of transmission; Translations: [Exposure to sexually transmissible disorder] Onset: 11-16-2022 Episodic Mood disorders (1 source) Mood disorders Onset: 12-20-2023 12-20-2023 Other female genital disorders (2 sources) Vaginal discharge; Translations: [Other specified noninflammatory disorders of vagina] 05-29-2024 Episodic Residual codes; unclassified (2 sources) Gestation period, 15 weeks; Translations: [15 weeks gestation of ] 05-29-2024 Episodic Spontaneous (3 sources) Complete or unspecified spontaneous without complication; Translations: [Miscarriage] Onset: 02-17-2024 Episodic Unclassified (1 source) CONTACT W/AND (SUSP) EXPOS COVID-19; Translations: [CONTACT W/AND (SUSP) EXPOS COVID-19] Onset: 05-07-2022 Unclassified (1 source) Onset: 09-14-2023 09-14-2023 Results Test Name Value Interpretation Reference Range Facility Urinalysis macro (dipstick) panel (U)on 09-25-2024 Bilirubin, UA Negative Negative - 4(70) +++ mg/dL [facility] Blood, UA Negative Negative - 50 Jaguar/mcL [facility] Clarity, UA Clear [facility] Color, UA Yellow [facility] Glucose, UA Negative Negative - 1999(110) ++++ mg/dL [facility] Interpretation and review of laboratory results Normal [facility] Ketones, UA Negative Negative - 160(16) ++++ mg/dL [facility] Leukocytes, UA Negative Negative - 500+++ Lizeth/mcL [facility] Nitrite, UA Negative Negative - Positive [facility] pH, UA 7 5 - 9 [facility] Protein, UA Negative Negative - 1999(20) ++++ mg/dL [facility] Spec Grav, UA 1.01 1 - 1.03 [facility] Urobilinogen, UA 0.2 0.2 - 12 mg/dL [facility] Urinalysis macro (dipstick) panel (U)on 09-11-2024 Bilirubin, UA Negative Negative - 4(70) +++ mg/dL [facility] Blood, UA Negative Negative - 50 Jaguar/mcL [facility] Clarity, UA Clear [facility] Color, UA Yellow [facility] Glucose, UA Negative Negative - 1999(110) ++++ mg/dL [facility] Interpretation and review of laboratory results Normal [facility] Ketones, UA Negative Negative - 160(16) ++++ mg/dL [facility] Leukocytes, UA Negative Negative - 500+++ Lizeth/mcL [facility] Nitrite, UA Negative Negative - Positive [facility] pH, UA 5.5 5 - 9 [facility] Protein, UA Negative Negative - 1999(20) ++++ mg/dL [facility] Spec Grav, UA 1.02 1 - 1.03 [facility] Urobilinogen, UA 1.0 0.2 - 12 mg/dL [facility] Urinalysis macro (dipstick) panel (U)on 08-28-2024 Bilirubin, UA Negative Negative - 4(70) +++ mg/dL [facility] Blood, UA Negative Negative - 50 Jaguar/mcL [facility] Clarity, UA Clear [facility] Color, UA Light Yellow [facility] Glucose, UA Negative Negative - 1999(110) ++++ mg/dL [facility] Interpretation and review of laboratory results Normal [facility] Ketones, UA Negative Negative - 160(16) ++++ mg/dL [facility] Leukocytes, UA Negative Negative - 500+++ Lizeth/mcL [facility] Nitrite, UA Negative Negative - Positive [facility] pH, UA 5.5 5 - 9 [facility] Protein, UA Negative Negative - 1999(20) ++++ mg/dL [facility] Spec Grav, UA 1.015 1 - 1.03 [facility] Urobilinogen, UA 1.0 0.2 - 12 mg/dL [facility] Urinalysis macro (dipstick) panel (U)on 07-30-2024 Bilirubin, UA Negative Negative - 4(70) +++ mg/dL [facility] Blood, UA Negative Negative - 50 Jaguar/mcL [facility] Clarity, UA Clear [facility] Color, UA Yellow [facility] Glucose, UA Negative Negative - 1999(110) ++++ mg/dL [facility] Interpretation and review of laboratory results Normal [facility] Ketones, UA Negative Negative - 160(16) ++++ mg/dL [facility] Leukocytes, UA Negative Negative - 500+++ Lizeth/mcL [facility] Nitrite, UA Negative Negative - Positive [facility] pH, UA 6.5 5 - 9 [facility] Protein, UA Negative Negative - 1999(20) ++++ mg/dL [facility] Spec Grav, UA 1.015 1 - 1.03 [facility] Urobilinogen, UA 0.2 0.2 - 12 mg/dL [facility] Urinalysis macro (dipstick) panel (U)on 06-28-2024 Bilirubin, UA Positive Negative - 4(70) +++ mg/dL [facility] Comment on above: small Blood, UA Negative Negative - 50 Jaguar/mcL [facility] Clarity, UA Clear [facility] Color, UA Yellow [facility] Glucose, UA Negative Negative - 1999(110) ++++ mg/dL [facility] Interpretation and review of laboratory results Abnormal [facility] Ketones, UA Positive Negative - 160(16) ++++ mg/dL [facility] Comment on above: 15 Leukocytes, UA Negative Negative - 500+++ Lizeth/mcL [facility] Nitrite, UA Negative Negative - Positive [facility] pH, UA 5.5 5 - 9 [facility] Protein, UA Trace Negative - 1999(20) ++++ mg/dL [facility] Spec Grav, UA 1.030 1 - 1.03 [facility] Urobilinogen, UA 0.2 0.2 - 12 mg/dL [facility] AFP, SERUM, OPEN SPINA BIFID Aon 05-31-2024 AFP MOM 1.17 . [facility] AFP VALUE 27.6 ng/mL . [facility] COMMENT: Comment . [facility] Comment on above: Vandana Nina , Ph.D., [facility] Director References: Available Upon Request. Multiples Of Median Cutoffs For AFP Elevations Rodriguez 2.5 Black 2.8 IDD 2.0 Twins 4.5 Abbreviation Definitions IDD - Insulin Dep Diabetes OSBR - Open Spina Bifida Risk For further inquiries contact [facility] at [phone]. This test was developed and its performance characteristics determined by [facility]. It has not been cleared or approved by the Food and Drug Administration. Performed at: [facility] [address] [place], [place] [id number] Supervisor Lead Refinery: Prashant Phoenix [facility], Phone: [phone] GEST. AGE ON COLLECTION DATE 15.6 . weeks [facility] GESTAT. AGE BASED ON Ultrasound . [facility] Comment on above: 15.6 on 05/29/2024 Recalculations are not recommended when gestational dating by LMP and ultrasound are within 10 days. INSULIN DEP DIABETES No . [facility] INTERPRETATION Comment . [facility] Comment on above: Interpretation: Scre en Negative This result is screen negative for OSB. The AFP MoM calculated is based on the gestational age provided. MS-AFP can identify up to 80% of open neural tube defects. Closed neural tube defects and some open defects may not be detected by this test. This test does not screen for Down Syndrome or Trisomy 18. If screening for Down Syndrome or Trisomy 18 is desired, contact [facility] to discuss available options. The [employer] recommends amniocentesis be offered to women age 35 and older. [age] [facility] MULTIPLE GESTATION No . [facility] OSBR RISK 1 IN 7137 . [facility] RACE . [facility] RESULTS Report . [facility] TEST RESULTS: Negative . [facility] WEIGHT 249 . lbs [facility] N N ULTRASOUND [id number] 4 15 N 1 Y 249 N N N N N White/ [facility] URETHRITIS/DISCHARGE PLUS VA GINITIS (HTRX)on 05-30-2024 ATOPOBIUM VAGINAE 0.000 [facility] ATOPOBIUM VAGINAE Not detected [facility] BVAB 2,3 (BACTERIAL VAGINOSIS ASSOCIATED BACTERIA 2, 3); MOBILUNCUS SPP 0.000 [facility] BVAB 2,3 (BACTERIAL VAGINOSIS ASSOCIATED BACTERIA 2, 3); MOBILUNCUS SPP Not detected [facility] JENNY ALBICANS, PARAPSILOSIS, TROPICALIS 0.000 [facility] JENNY ALBICANS, PARAPSILOSIS, TROPICALIS Not detected [facility] JENNY GLABRATA 0.000 [facility] JENNY GLABRATA Not detected [facility] JENNY KRUSEI 0.000 [facility] JENNY KRUSEI Not detected [facility] CHLAMYDIA TRACHOMATIS 0.000 [facility] CHLAMYDIA TRACHOMATIS Not detected [facility] GARDNERELLA VAGINALIS 0.000 [facility] GARDNERELLA VAGINALIS Not detected [facility] MEGASPHAERA (TYPES 1, 2) 0.000 [facility] MEGASPHAERA (TYPES 1, 2) Not detected [facility] MYCOPLASMA GENITALIUM 0.000 [facility] MYCOPLASMA GENITALIUM Not detected [facility] NEISSERIA GONORRHOEAE 0.000 [facility] NEISSERIA GONORRHOEAE Not detected [facility] TRICHOMONAS VAGINALIS 0.000 [facility] TRICHOMONAS VAGINALIS Not detected [facility]ology Cervical or vaginal smear or scraping studyon 05-29-2024 [facility] Urinalysis macro (dipstick) panel (U)on 05-29-2024 Bilirubin, UA Negative Negative - 4(70) +++ mg/dL [facility] Blood, UA Negative Negative - 50 Jaguar/mcL [facility] Clarity, UA Clear [facility] Color, UA Karen [facility] Glucose, UA Negative Negative - 2000(110) ++++ mg/dL [facility] Interpretation and review of laboratory results Normal [facility] Ketones, UA Negative Negative - 160(16) ++++ mg/dL [facility] Leukocytes, UA Negative Negative - 500+++ Lizeth/mcL [facility] Nitrite, UA Negative Negative - Positive [facility] pH, UA 7.0 5 - 9 [facility] Protein, UA Negative Negative - 1999(20) ++++ mg/dL [facility] Spec Grav, UA 1.010 1 - 1.03 [facility] Urobilinogen, UA 0.2 0.2 - 12 mg/dL [facility] CBC AND AUTO DIFFon 02-17-20 24 ABSOLUTE BASOPHIL 0.2 X10E9/L Normal 0.0-0.2 [facility] Comment on above: Performed By: #### C AFTAB, FEPR, 6-4 #### [facility] ([id number]) [address], [address] [place] [address] ABSOLUTE NEUTROPHIL 3.1 X10E9/L Normal 1.5-6.6 [facility] Comment on above: Performed By: #### Terri UGALDE, FEPR, 6-4 #### [facility] ([id number]) [address], [address] [place] [address] Basophils/100 WBC (Bld) 3.0 % Normal [facility] Comment on above: Performed By: #### Terri UGALDE, FEPR, 6-4 #### [facility] ([id number]) [address], [address] [place] [address] Eosinophils (Bld) [#/Vol] 0.2 10*3/uL Normal 0.0-0.4 [facility] Comment on above: Performed By: #### C AFTAB, FEPR, 2275-4 #### [facility] ([id number]) [address], [address] [place] [address] Eosinophils/100 WBC (Bld) 3.4 % Normal [facility] Comment on above: Performed By: #### C AFTAB, FEPR, 2275-4 #### [facility] ([id number]) [address] [address] [place] [address] Erythrocyte distribution width (RBC) [Ratio] 13.3 % Normal 11.5-15.0 [facility] Comment on above: Performed By: #### Terri UGALDE, FEPR, 2275-4 #### [facility] ([id number]) [address], [address] [place] [address] Hematocrit (Bld) [Volume fraction] 40.3 % Normal 35-47 [facility] Comment on above: Performed By: #### Terri UGALDE, FEPR, 4 #### [facility] ([id number]) [address], [facility] [address] [place] [address] Hemoglobin (Bld) [Mass/Vol] 13.8 g/dL Normal 11.7-15.5 [facility] Comment on above: Performed By: #### Terri BCA, FEPR, 2275-4 #### [facility] ([id number]) [address] [address] [place] [address] Lymphocytes (Bld) [#/Vol] 2.1 10*3/uL Normal 1.0-3.5 [facility] Comment on above: Performed By: #### C AFTAB, FEPR, 2275-4 #### [facility] ([id number]) [address], [address] [place] [address] Lymphocytes/100 WBC (Bld) 35.1 % Normal [facility] Comment on above: Performed By: #### CLAUS Murray BCAR, 2276-01 #### [facility] ([id number]) [address], [address] [place] [address] MCH (RBC) [Entitic mass] 29.0 pg Normal 27-34 [facility] Comment on above: Performed By: #### Terri UGALDE FEPR, 2275- #### [facility] ([id number]) [address], [address] [place] [address] MCHC (RBC) [Mass/Vol] 34.2 g/dL Normal 32-36 [facility] Comment on above: Performed By: #### Terri UGALDE FEPR, 2276-01 #### [facility] ([id number]) [address], [address] [place] [address] MCV (RBC) [Entitic vol] 85 fL Normal 80-100 [facility] Comment on above: Performed By: #### Terri UGALDE, FEPR, 2276-01 #### [facility] ([id number]) [address], [address] [place] [address] Monocytes (Bld) [#/Vol] 0.5 10*3/uL Normal 0-0.9 [facility] Comment on above: Performed By: #### Terri UGALDE FEPR, 2276-01 #### [facility] ([id number]) [address], [address] [place] [address] Monocytes/100 WBC (Bld) 7.5 % Normal [facility] Comment on above: Performed By: #### Terri UGALDE FEPR, 2276-01 #### [facility] ([id number]) [address], [address] [place] [address] Neutrophils/100 WBC (Bld) 51.0 % Normal [facility] Comment on above: Performed By: #### C BCA, FEPR, 6-4 #### [facility] ([id number]) [address], [facility] [address] [place] [address] Platelet mean volume (Bld) [Entitic vol] 8.8 fL Normal 7-12 [facility] Comment on above: Performed By: #### C BCA, FEPR, 2275-4 #### [facility] ([id number]) [address], [address] [address] Platelets (Bld) [#/Vol] 272 10*3/uL Normal 150-450 [facility] Comment on above: Performed By: #### Terri BCA, FEPR, 2275-4 #### [facility] ([id number]) [address], [facility] [address] [place] [address] RBC COUNT 4.75 X10E12/L Normal 3.80-5.20 [facility] Comment on above: Performed By: #### Terri BCA, FEPR, 2275-4 #### [facility] ([id number]) [address], [address] [address] WBC (Bld) [#/Vol] 6.1 10*3/uL Normal 4.0-11.0 [facility] Comment on above: Performed By: #### Terri BCA, FEPR, 2275-4 #### [facility] ([id number]) [address], [facility] [address] [place] [address] FERRITINon 02-17-2024 Ferritin [Mass/Vol] 50 ng/mL Normal 11-307 [facility] Comment on above: Performed By: #### C BCA, FEPR, 2275-4 #### [facility] ([id number]) [address], [address] [place] [address] IRON PROFILEon 02-17-2024 Iron [Mass/Vol] 59 ug/dL Normal 50-170 [facility] Comment on above: Performed By: #### C BCA, FEPR, 2276-4 #### [facility] ([id number]) [address], [address] [place] [address] IRON BINDING 384 ug/dL Normal 250-425 [facility] Comment on above: Performed By: #### C BCA, FEPR, 6-4 #### [facility] ([id number]) [address], [address] [place] [address] IRON SATURATION 15 % SATURATION Normal 15-50 [facility] Comment on above: Performed By: #### C BCA, FEPR, 2276-4 #### [facility] ([id number]) [address], [address] [place] [address] HCG ( test) Ql (U)o n 01-19-2024 Beta HCG ( test) Ql (U) Negative Normal NEG [facility] Comment on above: Performed By: #### 2 106-3 #### [facility] ([id number]) [address] [place] [address] [place] [address] URN MACROSCOPIC NURon 2023 BILIRUBIN SUDHIR Negative Normal [facility] Comment on above: Performed By: #### N UM #### [facility] ([id number]) [address] [place] [address] [place] [address] BLOOD/HGB SUDHIR Trace Abnormal NEG [facility] Comment on above: Performed By: #### N UM #### [facility] ([id number]) [address] [place] [address] [place] [address] GLUCOSE SUDHIR Negative Normal NEG [facility] Comment on above: Performed By: #### N UM #### [facility] ([id number]) [address] [place] [address], [place] [address] KETONES SUDHIR Negative Normal NEG [facility] Comment on above: Performed By: #### N UM #### [facility] ([id number]) [address] [place] [address] LEUKOCYTE ESTERASE SUDHIR Negative Normal NEG [facility] Comment on above: Performed By: #### N UM #### [facility] ([id number]) [address] [place] [address] NITRITE SUDHIR Negative Normal NEG [facility] Comment on above: Performed By: #### N UM #### [facility] ([id number]) [address] [place] [address] PH SUDHIR 6.0 Normal 5.0-8.5 [facility] Comment on above: Performed By: #### N UM #### [facility] ([id number]) [address] [place] [address] PROTEIN SUDHIR Negative Normal NEG [facility] Comment on above: Performed By: #### N UM #### [facility] ([id number]) [address] [place] [address] SPECIFIC GRAVITY SUDHIR >=1.030 Normal 1.003-1.035 [facility] Comment on above: Performed By: #### N UM #### [facility] ([id number]) [address] [place] [address] UROBILINOGEN SUDHIR 0.2 eu/dL Normal <1.1 [facility] Comment on above: Performed By: #### N UM #### [facility] ([id number]) [address] [place] [address] TBH PREG QUANT HCGon 11-21-2 024 HCG QUANTITATIVE <1 mIU/mL [facility] Comment on above: 5-50 0.2-1 WEEK 50-500 1-2 WEEKS 100-5,000 2-3 WEEKS 500-10,000 3-4 WEEKS 1,000-50,000 4-5 WEEKS 10,000-100,000 5-6 WEEKS 15,000-200,000 6-8 WEEKS 10,000-100,000 2-3 MONTHS [facility] CBC AUTO DIFFon 01-19-2023 BASO # 0.1 103/ul Normal 0.0-0.1 [facility] Comment on above: Performed By: #### C BC #### [facility] [address] [address] [address] Kristie Marrero Basophils/100 WBC (Bld) 0.5 % Normal 0.2-2.0 [facility] Comment on above: Performed By: #### C BC #### [facility] [address] [address] [address] Kristie Marrero EO # 0.2 103/ul Normal 0.0-0.7 [facility] Comment on above: Performed By: #### C BC #### [facility] [address] [place] [address] Dr. Kristie Marrero Eosinophils/100 WBC (Bld) 2.0 % Normal 0.9-7.0 [facility] [facility] Comment on above: Performed By: #### C BC #### [facility] [address] [address] [address] Kristie Marrero Erythrocyte distribution width (RBC) [Ratio] 12.0 % Normal 11.0-15.0 [facility] Comment on above: Performed By: #### C BC #### [facility] [address] [place] [address] Dr. Kristie Marrero Hematocrit (Bld) [Volume fraction] 38.0 % Normal 36.0-48.0 [facility] Comment on above: Performed By: #### C BC #### [facility] [address] [place] [address] Dr. Kristie Marrero Hemoglobin (Bld) [Mass/Vol] 13.3 g/dL Normal 12.0-16.0 [facility] Comment on above: Performed By: #### C BC #### [facility] [address] [address] [address] Kristie Marrero IG # 0.04 10e3/ul Critically high 0.00-0.03 [facility] Comment on above: Performed By: #### C BC #### [facility] [address] [place] [address] Dr. Kristie Marrero IG % 0.4 % Normal 0.0-0.5 [facility] Comment on above: Performed By: #### C BC #### [facility] [address] [place] [address] Dr. Kristie Marrero LYMPH # 1.3 103/ul Normal 1.2-3.8 [facility] Comment on above: Performed By: #### C BC #### [facility] [address] [place] [address] Dr. Kristie Marrero Lymphocytes/100 WBC (Bld) 12.3 % Critically low 20.5-60.0 [facility] Comment on above: Performed By: #### C BC #### [facility] [address] [place] [address] Dr. Kristie Marrero MANUAL DIFF REQ NO Normal [facility] Comment on above: Performed By: #### C BC #### [facility] [address] [place] [address] Dr. Kristie Marrero MCH (RBC) [Entitic mass] 29.2 pg Normal 26.7-34.0 [facility] Comment on above: Performed By: #### C BC #### [facility] [address] [place] [address] Dr. Kristie Marrero MCHC (RBC) [Mass/Vol] 35.0 g/dL Normal 29.9-35.2 [facility] Comment on above: Performed By: #### C BC #### [facility] [address] [place] [address] Dr. Kristie Marrero MCV (RBC) [Entitic vol] 83.3 fL Normal 81.0-99.0 [facility] Comment on above: Performed By: #### C BC #### [facility] [address] [place] [address] Dr. Kristie Marrero MONO # 0.7 103/ul Normal 0.3-0.8 [facility] Comment on above: Performed By: #### C BC #### [facility] [address] [address] [address] Kristie Marrero Monocytes/100 WBC (Bld) 7.0 % Normal 1.7-12.0 [facility] Comment on above: Performed By: #### C BC #### [facility] [address] [place] [address] Dr. Kristie Marrero NEUT # 8.2 103/ul Critically high 1.4-6.5 [facility] Comment on above: Performed By: #### C BC #### [facility] [address] [place] [address] Dr. Kristie Marrero Neutrophils/100 WBC (Bld) 77.8 % Critically high 43.0-75.0 [facility] Comment on above: Performed By: #### C BC #### [facility] [address] [place] [address] Dr. Kristie Marrero Platelet mean volume (Bld) [Entitic vol] 9.5 fL Normal 9.5-13.5 [facility] Comment on above: Performed By: #### C BC #### [facility] [address] [place] [address] Dr. Kristie Marrero PLT 265 103/ul Normal 150-450 [facility] Comment on above: Performed By: #### C BC #### [facility] [address] [place] [address] Dr. Kristie Marrero RBC 4.56 106/ul Normal 4.20-5.40 [facility] Comment on above: Performed By: #### C BC #### [facility] [address] [place] [address] Dr. Kristie Marrero WBC 10.5 103/ul Normal 4.0-11.0 [facility] Comment on above: Performed By: #### C BC #### [facility] [address] [place] [address] Dr. Kristie Marrero PREG HCG QUALon 01-19-2023 , QUAL Negative Normal NEGATIVE [facility] Comment on above: Performed By: #### P REG #### [facility] [address] [place] [address] Dr. Kristie Marrero CHLAMYDIA/GONOCOCCUS RADHA (SW AB/URINE/PAPon 11-19-2022 Chlamydia trachomatis, RADHA Negative Normal Negative [facility] Comment on above: Performed By: #### C T/NGNA #### [facility] [address] [place] [address] Dr. Kristie Marrero Neisseria gonorrhoeae, RADHA Negative Normal Negative [facility] Comment on above: Performed By: #### C T/NGNA #### [facility] [address] [place] [address] Dr. Kristie Marrero VAGINITIS/VAGINOSIS DNA PROB Syed 11-18-2022 Jenny species Negative Normal Negative [facility] Comment on above: Performed By: #### V AGINT #### [facility] [address] [place] [address] Dr. Kristie Marrero Gardnerella vaginalis Positive Abnormal Negative [facility] Comment on above: Performed By: #### V AGINT #### [facility] [address] [place] [address] Dr. Kristie Marrero Trichomonas vaginalis Negative Normal Negative [facility] Comment on above: Performed By: #### V AGINT #### [facility] [address] [place] [address] Dr. Kristie Marrero [facility] SARS-CoV-2 (COVID-19) RNA RADHA+probe Ql (Unsp spec) Detected Critically abnormal NOT DETECTED [facility] Comment on above: Result Comment: This test is not yet approved or cleared by the [place] FDA. When there are no FDA-approved or cleared tests available, and other criteria are met, FDA can make tests available under an emergency access mechanism called an Emergency Use Authorization (EUA). The EUA for this test is supported by the [place] of Health and Human Service's (HHS's) declaration [...] used). Performed By: #### C VDTB #### [facility] [address] [place] [address] Dr. Kristie Marrero Vital Signs Date Time Vital Sign Value Performing Clinician Facility 09-25-2024 14:03-0500 Body mass index (BMI) [Ratio] 40.43 kg/m2 Alyssa ISSA Work Phone: [facility] 09-25-2024 14:03-0500 Body weight 117.08 kg Alyssa Pretty PA Work Phone: [facility] 09-25-2024 14:03-0500 Diastolic blood pressure 68 mm[Hg] Alyssa Pretty PA Work Phone: [facility] 09-25-2024 14:03-0500 Systolic blood pressure 118 mm[Hg] Alyssa Pretty PA Work Phone: [facility] 09-11-2024 10:46-0500 Body mass index (BMI) [Ratio] 40.53 kg/m2 Carmen Ayleen DO Work Phone: [facility] 09-11-2024 10:46-0500 Body weight 117.39 kg Carmen Ayleen DO Work Phone: [facility] 09-11-2024 10:46-0500 Diastolic blood pressure 70 mm[Hg] Carmen Ayleen DO Work Phone: [facility] 09-11-2024 10:46-0500 Systolic blood pressure 112 mm[Hg] Carmen Ayleen DO Work Phone: [facility] 08-28-2024 10:28-0500 Body mass index (BMI) [Ratio] 41.16 kg/m2 Alyssa Pretty PA Work Phone: [facility] 08-28-2024 10:28-0500 Body weight 119.2 kg Alyssa Pretty PA Work Phone: [facility] 08-28-2024 10:28-0500 Diastolic blood pressure 72 mm[Hg] Alyssa Pretty PA Work Phone: [facility] 08-28-2024 10:28-0500 Systolic blood pressure 114 mm[Hg] Alyssa ISSA Work Phone: [facility] 07-30-2024 09:39-0400 Body mass index (BMI) [Ratio] 40.41 kg/m2 Carmen Ayleen DO Work Phone: [facility] 07-30-2024 09:39-0400 Body weight 117.03 kg Carmen Ayleen DO Work Phone: [facility] 07-30-2024 09:39-0400 Diastolic blood pressure 68 mm[Hg] Carmen Ayleen DO Work Phone: [facility] 07-30-2024 09:39-0400 Systolic blood pressure 112 mm[Hg] Carmen Ayleen DO Work Phone: [facility] 06-28-2024 15:06-0400 Body mass index (BMI) [Ratio] 39.39 kg/m2 Alyssa ISSA Work Phone: [facility] 06-28-2024 15:06-0400 Body weight 114.08 kg Alyssa ISSA Work Phone: [facility] 06-28-2024 15:06-0400 Diastolic blood pressure 78 mm[Hg] Alyssa ISSA Work Phone: [facility] 06-28-2024 15:06-0400 Systolic blood pressure 110 mm[Hg] Alyssa ISSA Work Phone: [facility] 05-29-2024 11:14-0400 Body mass index (BMI) [Ratio] 39 kg/m2 Carmen Ayleen DO Work Phone: [facility] 05-29-2024 11:14-0400 Body weight 112.95 kg Carmen Ayleen DO Work Phone: [facility] 05-29-2024 11:14-0400 Diastolic blood pressure 60 mm[Hg] Carmen Ayleen DO Work Phone: [facility] 05-29-2024 11:14-0400 Systolic blood pressure 120 mm[Hg] Carmen Ayleen DO Work Phone: [facility] 12-20-2023 15:22-0400 Body height 170.2 cm Summer Davalos [employer]CH [employer] LANGUAGE TUTOR Work Phone: [facility] 12-20-2023 15:22-0400 Body mass index (BMI) [Ratio] 38.28 kg/m2 Summer Davalos [employer]ANGUAGE TUTOR Work Phone: [facility] 12-20-2023 15:22-0400 Body temperature 98.29 [degF] Summer Davalos [employer]ANGUAGE TUTOR Work Phone: [facility] [place] 12-20-2023 15:22-0400 Body weight 110.86 kg Summer Davalos [employer]UAGE T[employer]OR Work Phone: [facility] 12-20-2023 15:22-0400 Diastolic blood pressure 80 mm[Hg] Summer Davalos [employer]ANGUAGE TUTOR Work Phone: [facility] [place] 12-20-2023 15:22-0400 Heart rate 82 /min Summer Davalos [employer]AGE [employer]OR Work Phone: [facility] [place] 12-20-2023 15:22-0400 Respiratory rate 18 /min Summer Davalos [employer]UAGE [employer]UTOR Work Phone: [facility] [place] 12-20-2023 15:22-0400 SaO2% (BldA) [Mass fraction] 97 % Summer Davalos [employer]UAGE TUTOR Work Phone: [facility] [place] 12-20-2023 15:22-0400 Systolic blood pressure 100 mm[Hg] Summer Davalos [employer]UAGE TUTOR Work Phone: [facility] Encounters Encounter Date Encounter Type Care Provider Facility Start: 09-25-2024 End: 09-25-2024 Bamboo flowsheet Alyssa ISSA Work Phone: [facility] Start: 09-25-2024 End: 09-25-2024 Bamboo flowsheet Alyssa ISSA Work Phone: [facility] Start: 09-25-2024 End: 09-25-2024 Office outpatient visit 15 minutes Alyssa ISSA Work Phone: [facility] Comment on above: 32 weeks gestation o f ; Third trimester ; Anxiety with depression Start: 09-25-2024 End: 09-25-2024 ambulatory ALYSSA PRETTY Not Available Start: 09-11-2024 End: 09-11-2024 Bamboo flowsheet Carmen Ayleen DO Work Phone: [facility] Start: 09-11-2024 End: 09-11-2024 Bamboo flowsheet Carmen Ayleen DO Work Phone: [facility] Start: 09-11-2024 End: 09-11-2024 flow sheet Carmen Ayleen DO Work Phone: [facility] Comment on above: Third trimester preg mau; 30 weeks gestation of Start: 09-11-2024 End: 09-11-2024 ambulatory CARMEN AYLEEN Not Available Start: 08-28-2024 End: 08-28-2024 Bamboo flowsheet Alyssa ISSA Work Phone: [facility] Start: 08-28-2024 End: 08-28-2024 Bamboo flowsheet Alyssa ISSA Work Phone: [facility] Start: 08-28-2024 End: 08-28-2024 flow sheet Alyssa ISSA Work Phone: [facility] Comment on above: Third trimester preg mau; 28 weeks gestation of ; size inconsistent with dates Start: 08-28-2024 End: 08-28-2024 ambulatory ALYSSA PRETTY Not Available Start: 07-30-2024 End: 07-30-2024 Bamboo [...] Not Available Start: 07-04-2024 End: 07-04-2024 ambulatory [facility] Start: 06-28-2024 End: 06-28-2024 Office outpatient visit 15 minutes Alyssa ISSA Work Phone: [facility] Comment on above: Second trimester pre gnancy Start: 06-28-2024 End: 06-28-2024 ambulatory ALYSSA PRETTY Not Available Start: 06-28-2024 End: 06-28-2024 Bamboo flowsheet Alyssa ISSA Work Phone: [facility] Start: 06-28-2024 End: 06-28-2024 Bamboo flowsheet Alyssa ISSA Work Phone: [facility] Start: 05-29-2024 End: 05-29-2024 Bamboo flowsheet Carmen Ayleen DO Work Phone: [facility] Start: 05-29-2024 End: 05-31-2024 Bamboo flowsheet Carmen Ayleen DO Work Phone: [facility] Start: 05-29-2024 End: 05-31-2024 Clinisync Result Encounter Carmen Ayleen DO Work Phone: [facility] Unsolicited Start: 05-29-2024 End: 05-30-2024 External Result Encounter Carmen Ayleen DO Work Phone: [facility] Unsolicited Start: 05-29-2024 End: 05-29-2024 Patient encounter procedure Carmen Ayleen DO Work Phone: [facility] Start: 05-29-2024 End: 05-29-2024 Periodic preventive med est patient 18-39 yrs Carmen Ayleen DO Work Phone: [facility] Comment on above: 15 weeks gestation o f ; Screening, , for anatomic survey; Well woman exam with routine gynecological exam; Exposure to STD; Vaginal discharge Start: 05-29-2024 End: 05-29-2024 ambulatory CARMEN GUTIERREZO Not Available Start: 05-11-2024 End: 05-11-2024 ambulatory ALYSSA PRETTY Not Available Start: 02-17-2024 End: 02-18-2024 ambulatory [facility] Start: 02-17-2024 End: 02-17-2024 ambulatory [facility] Start: 02-15-2024 End: 02-15-2024 ambulatory CARMEN GUTIERREZO Not Available Start: 02-07-2024 End: 02-07-2024 ambulatory ALYSSA PRETTY Not Available Start: 01-19-2024 End: 01-19-2024 Emergency department patient visit [facility] Start: 12-20-2023 End: 12-20-2023 Office outpatient visit 15 minutes Summer Gutiérrez [facility] [employer]ANGUAGE TUTOR Work Phone: [facility] Comment on above: PTSD (post-traumatic stress disorder) (Primary Dx); General counseling and advice for contraceptive management; Class 2 obesity due to excess calories without serious comorbidity with body mass index (BMI) of 37.0 to 37.9 in adult Start: 12-20-2023 End: 12-20-2023 ambulatory [facility] Start: 11-21-2023 Clinisync Result Encounter [...] Date Procedure Procedure Detail Performing Clinician Start: 09-25-2024 Urnls dip stick/tabl et rgnt non-auto w/o micrscp Carmen Ayleen DO Work Phone: Start: 09-11-2024 Urnls dip stick/tabl et rgnt non-auto w/o micrscp Carmen Ayleen DO Work Phone: Start: 08-28-2024 Urnls dip stick/tabl et rgnt non-auto w/o micrscp Alyssa ISSA Work Phone: Start: 07-30-2024 Urnls dip stick/tabl et rgnt non-auto w/o micrscp Carmen Ayleen DO Work Phone: Start: 06-28-2024 Urnls dip stick/tabl et rgnt non-auto w/o micrscp Alyssa ISSA Work Phone: Start: 05-29-2024 AFP, SERUM, OPEN SPI NA BIFIDA Carmen Ayleen DO Work Phone: Start: 05-29-2024 Urnls dip stick/tabl et rgnt non-auto w/o micrscp Carmen Ayleen DO Work Phone: Start: 05-29-2024 Cytp cerv/vag auto t hin layer prep mnl screen Carmen Ayleen DO Work Phone: Start: 05-29-2024 URETHRITIS/DISCHARGE PLUS VAGINITIS (HTRX) Carmen Ayleen DO Work Phone: Start: 12-20-2023 Adult depression scr eening assessment Summer Suzan LOPEZ Work Phone: Start: 11-21-2023 [facility] PREG QUANT HCG Core y Ayleen DO Work Phone: Start: 11-16-2022 Microscopic observat ion [Identifier] in Cervix by Cyto stain Summer Davalos APRN-HARPER Work Phone: Plan of Treatment Date Care Activity Detail Author Start: 11-13-2029 DTaP,Tdap and Td Vaccines (7 - Td or Tdap) DTaP,Tdap and Td Vaccines (7 - Td or Tdap) [facility] Start: 11-16-2025 Screening for malign ant neoplasm of cervix Pap Smear [facility] Start: 12-19-2024 Adult BMI Screening Adult BMI Screen ing [facility] Start: 12-19-2024 Depression Screening Depression Scre ening [facility] Start: 12-19-2024 Tobacco Screening Tobacco Screening [facility] Start: 10-15-2024 End: 10-15-2024 Patient encounter procedure 10/15/2024 2:30 PM EST Routine [facility] [address] [place] [id number] Carmen Abbasi DO [address] [place], [place] [id number] [facility] Start: 09-25-2024 End: 09-25-2024 Patient encounter procedure [facility] Comment on above: Arrived Start: 09-14-2024 Adult BMI Follow Up Plan Adult BMI Follow Up Plan [facility] Start: 09-11-2024 End: 09-11-2024 Patient encounter procedure [facility] Comment on above: Arrived Start: 09-11-2024 End: 09-11-2024 Professional / ancillary services management 09/11/2024 10:00 AM EST Ancillary Procedure [facility] [address] [place] [place] [id number] [facility] Start: 08-28-2024 End: 08-28-2025 [...] mellitus screening Expected: 07/30/2024 (Approximate), Expires: 07/30/2025 [facility] Work Phone: Comment on above: Expected: 07/30/2024 (Approximate), Expires: 07/30/2025 Start: 07-30-2024 End: 07-30-2025 Measurement of glucose 1 hour after glucose challenge for glucose tolerance test Glucose tolerance, 1 hour Lab Routine Diabetes mellitus screening Expected: 07/30/2024 (Approximate), Expires: 07/30/2025 [facility] Comment on above: Expected: 07/30/2024 (Approximate), Expires: 07/30/2025 Start: 07-30-2024 End: 07-30-2024 Patient encounter procedure 07/30/2024 9:10 AM EDT Routine [facility] [address] [place] [address] Carmen Abbasi DO [address] [place], [place] [id number] Arrived [facility] Comment on above: Arrived Start: 07-02-2024 End: 07-02-2024 Patient encounter procedure [facility] Start: 07-02-2024 End: 07-02-2024 Professional / ancillary services management 07/02/2024 8:30 AM EDT Ancillary Procedure [facility] [address] [place] [id number] [facility] Start: 06-28-2024 End: 06-28-2024 Patient encounter procedure 06/28/2024 3:00 PM EDT Routine [facility] [address] [place] [address] Alyssa Pretty PA [address] [place], [place] [id number] Arrived [facility] Comment on above: Arrived Start: 06-10-2024 Influenza vaccination Influenza Vacc ine (#1) [facility] Start: 05-29-2024 End: 07-29-2024 Alpha fetoprotein, maternal Alpha fetoprotein, maternal Lab Routine 15 weeks gestation of Expected: 05/29/2024 (Approximate), Expires: 07/29/2024 [facility] Comment on above: Expected: 05/29/2024 (Approximate), Expires: 07/29/2024 Start: 05-29-2024 End: 05-29-2025 US for US OB ANATOMY SINGLE W US OB CERVICAL LENGTH Imaging Routine Screening, , for anatomic survey Expected: 05/29/2024 (Approximate), Expires: 05/29/2025 [facility] Comment on above: Expected: 05/29/2024 (Approximate), Expires: 05/29/2025 Start: 05-29-2024 End: 05-29-2024 Patient encounter procedure 05/29/2024 10:50 AM EDT Routine [facility] [address] [place] [address] Carmen Abbasi, [address] [place] [address] Arrived [facility] Comment on above: Arrived Start: 06-10-2023 Influenza vaccination Influenza Vacc ine (#1) [facility] CHLAMYDIA TRACHOMATI S (GENITO/STI) CHLAMYDIA TRACHOMATIS (GENITO/STI) Lab Routine Exposure to STD Ordered: 05/29/2024 [facility] Comment on above: Ordered: 05/29/2024 Cytology Cervical or vaginal smear or scraping study Pap Smear Pathology and Cytology Routine Well woman exam with routine gynecological exam Ordered: 05/29/2024 [facility] Work Phone: Comment on above: Ordered: 05/29/2024 Neisseria gonorrhoea e DNA [Presence] in Unspecified specimen by RADHA with probe detection Neisseria gonorrhea DNA probe, direct Lab Routine Exposure to STD Ordered: 05/29/2024 [facility] Comment on above: Ordered: 05/29/2024 SURESWAB(R) ADVANCED VAGINITIS PLUS, TMA SURESWAB(R) ADVANCED VAGINITIS PLUS, TMA Pathology and Cytology Routine Vaginal discharge Ordered: 05/29/2024 [facility] Comment on above: Ordered: 05/29/2024 Immunizations Immunization Date Immunization Notes Care Provider Fa manuel 11-13-2019 tetanus toxoid, redu clifford diphtheria toxoid, and acellular pertussis vaccine, adsorbed Summer Davalos [employer] LANGUAGE TUTOR Work Phone: [facility] 01-22-2014 diphtheria, tetanus toxoids and acellular pertussis vaccine, unspecified formulation Summer Davalos [employer]CH AND LANGUAGE TUTOR Work Phone: [facility] 06-22-2004 diphtheria, tetanus toxoids and acellular pertussis vaccine Summer Davalos [employer]CH AND LANGUAGE TUTOR Work Phone: [facility] 06-22-2004 haemophilus influenz ae type b vaccine, PRP-T conjugate Summer Davalos [employer] LANGUAGE TUTOR Work Phone: [facility] 06-22-2004 pneumococcal conjuga te vaccine, 7 valent Summer Davalos [employer]CH AND LANGUAGE TUTOR Work Phone: [facility] 12-20-2003 DTaP-hepatitis B and poliovirus vaccine Summer Davalos [employer]CH AND LANGUAGE TUTOR Work Phone: [facility] 12-20-2003 haemophilus influenz ae type b vaccine, PRP-T conjugate Summer Davalos [employer]CH AND LANGUAGE TUTOR Work Phone: [facility] 12-20-2003 measles, mumps and rubella virus vaccine Summer Davalos [employer]CH AND LANGUAGE TUTOR Work Phone: [facility] 12-20-2003 varicella virus vaccine Summer Davalos [employer]CH AND LANGUAGE TUTOR Work Phone: [facility] 11-11-2003 DTaP-hepatitis B and poliovirus vaccine Summer Davalos [employer]CH AND LANGUAGE TUTOR Work Phone: [facility] 11-11-2003 haemophilus influenz ae type b vaccine, PRP-T conjugate Summer Davalos [employer] LANGUAGE TUTOR Work Phone: [facility] 11-11-2003 pneumococcal conjuga te vaccine, 7 valent Summer Davalos [employer]CH AND LANGUAGE TUTOR Work Phone: [facility] 05-31-2003 DTaP-hepatitis B and poliovirus vaccine Summer Davalos [employer]CH AND LANGUAGE TUTOR Work Phone: [facility] 05-31-2003 haemophilus influenz ae type b vaccine, PRP-T conjugate Summer Davalos [employer]CH AND LANGUAGE TUTOR Work Phone: [facility] 05-31-2003 pneumococcal conjuga te vaccine, 7 valent Summer Davalos [employer]CH AND LANGUAGE TUTOR Work Phone: [facility] 2002 hepatitis B vaccine, pediatric or pediatric/adolescent dosage Summer Davalos [employer]CH AND LANGUAGE TUTOR Work Phone: [facility] Payers Date Payer Category Payer Private Health Insurance [facility] [id number] 2024 Unknown [id number] 2022 Medicaid (Managed Care) [employer] [id number] 2018 Medicaid [id number] 2002 Unknown [id number] 2002 Unknown [id number] 2002 Unknown [id number] 2002 Unknown [id number] 2002 Unknown [id number] 128 2002 Unknown [id number] 2002 Unknown [id number]. 1258 2002 Unknown [id number] 2.16.840.1.503266.3.579.2. 1258 2002 Unknown [id number] 2.16.840.1.487246.3.579.2. 9 2002 Unknown [id number] 2.16.840.1.233117.3.579.2. 1258 2002 Unknown [id number] 2.16.840.1.485794.3.579.2. 1258 2002 Unknown [id number] 2.16.840.1.130406.3.579.2. 1258 2002 Unknown [id number] 2.16.840.1.232160.3.579.2. 9 2002 Unknown [id number] 2.16.840.1.094518.3.579.2. 1259 1982 Unknown [id number] 2.16.840.1.494923.3.579.2. 593 1982 Unknown [id number] 2.16.840.1.748772.3.579.2. 593 1982 Unknown [id number] 2.16.840.1.528995.3.579.2. 593 1959 Unknown [id number] 1959 Unknown [id number] Social History Date Type Detail Facility Start: 05-19-2023 Tobacco smoking status NHIS Tobacco smoking consumption unknown [facility] Start: 05-19-2023 Tobacco use and exposure User of smokeless tobacco [facility] Start: 11-18-2023 End: 05-29-2024 Alcohol intake Lifetime non-drinker (finding) [facility] Start: 05-19-2023 End: 08-01-2023 History of Social function [facility] Start: 05-19-2023 End: 08-01-2023 Tobacco use panel [facility] Start: 2000 Sex Assigned At Not on file [facility] Start: 01-15-2023 Tobacco smoking status [facility] Never smoked tobacco [facility] Start: 01-15-2023 Tobacco use and exposure Smokeless tobacco non-user [facility] Frequency of Alcohol Consumption Never [facility] Start: 02-24-2024 [facility] Start: 2000 Sex assigned at Female [facility] Start: 01-23-2024 Gender identity Identifies as female gender (finding) [facility] Start: 01-23-2024 Sexual orientation Heterosexual (finding) [facility] Clinical Notes 12-20-2023 to 09-25-2024 MAEGAN Link - 09/25/2024 1:50 PM Dale Baker LPN - 09/11/2024 10:30 AM MAEGAN Liang - 08/28/2024 10:30 AM Martha Bloom LPN - 07/30/2024 9:10 AM MAEGAN Cadena - 06/28/2024 3:00 PM EDT Note Date & Type Note Facility 09-25-2024 History of Present illness Narrative Reason for Appointment: Patient ID: Lorie Martinez is a 23 y.o. female who presents for No chief complaint on file. Patient presents today for Return OB appointment. MEDICATIONS Current Outpatient Medications Medication Instructions Calcium Carbonate Antacid (TUMS PO) Oral MV-Min-Fe Fum-FA-DHA ( 1 PO) Oral ALLERGIES Allergies Allergen Reactions Ondansetron Rash PROBLEMS Active Ambulatory Problems Diagnosis Date Noted No Active Ambulatory Problems Resolved Ambulatory Problems Diagnosis Date Noted No Resolved Ambulatory Problems Past Medical History: Diagnosis Date ADHD (attention deficit hyperactivity disorder) ([facility]) HISTORY PAST MEDICAL HISTORY SOCIAL HISTORY Past [...] nursing note reviewed. Exam conducted with a ct scan technologist present. Vitals: Estimated body mass index is 40.53 kg/m as calculated from the following: Height as of 08/01/23: 5' 7 . Weight as of 09/11/24: 258 lb 12.8 oz. BP: No LMP recorded. Patient is . ASSESSMENT & PLAN Patient presents today for a routine obstetrics appointment. Patient is currently 32w4d with a Estimated Date of Delivery: 11/16/24. Patient voiced she would like to have Celexa sent to pharmacy at this time. Documented by Sara Bloom LPN on behalf of: MAEGAN Link documented in this encounter [facility] 09-11-2024 History of Present illness Narrative Reason for Appointment: Patient ID: [...] Diagnosis Date ADHD (attention deficit hyperactivity disorder) ([facility]) HISTORY PAST MEDICAL HISTORY SOCIAL HISTORY Past Medical History: Diagnosis Date ADHD (attention deficit hyperactivity disorder) ([facility]) Social History Tobacco Use Smoking status: Unknown [...] nursing note reviewed. Exam conducted with a ct scan technologist present. Vitals: Estimated body mass index is 40.53 kg/m as calculated from the following: Height as of 08/01/23: 5' 7 . Weight as of this encounter: 258 lb 12.8 oz. BP: 112/70 No LMP recorded. Patient is . ASSESSMENT & PLAN ICD-10-CM 1. Third trimester Z34.93 POCT urinalysis dipstick manually resulted 2. 30 weeks gestation of Z3A.30 POCT urinalysis dipstick manually resulted Return OB: Patient presents today for a routine obstetrics appointment. Patient is currently 30w4d . Patient states she is doing well but has complaints of being tired due to current . Patient has verbalizes frequent movement. labor precautions was discussed/given and patient was instructed to perform kick counts three times a day. Orders Placed This Encounter Procedures POCT urinalysis dipstick manually resulted Follow Up: Patient is to return to office in 2 week for routine OB appointment. Documented by Shanice Baker LPN on behalf of: Carmen Abbasi DO documented in this encounter [facility] 08-28-2024 History of Present illness Narrative Reason for Appointment: Patient ID: [...] Diagnosis Date ADHD (attention deficit hyperactivity disorder) ([facility]) HISTORY PAST MEDICAL HISTORY SOCIAL HISTORY Past Medical History: Diagnosis Date ADHD (attention deficit hyperactivity disorder) ([facility]) Social History Tobacco Use Smoking status: Unknown [...] of: MAEGAN Link documented in this encounter [facility] 07-30-2024 History of Present illness Narrative Reason for Appointment: Patient ID: [...] Diagnosis Date ADHD (attention deficit hyperactivity disorder) ([facility]) HISTORY PAST MEDICAL HISTORY SOCIAL HISTORY Past Medical History: Diagnosis Date ADHD (attention deficit hyperactivity disorder) ([facility]) Social History Tobacco Use Smoking status: Unknown [...] nursing note reviewed. Exam conducted with a ct scan technologist present. Vitals: Estimated body mass index is [...] week with [facility] in [place] and will reach out to there office to reschedule appointment. Documented by Sara Bloom LPN on behalf of: Carmen Abbasi DO documented in this encounter [facility] 06-28-2024 History of Present illness Narrative Reason for Appointment: Patient ID: [...] reviewed. Vitals: Estimated body mass index is 39.39 kg/m as calculated from the following: Height as of 08/01/23: 5' 7 . Weight as of this encounter: 251 lb 8 oz. BP: 110/78 No LMP recorded. Patient is . ASSESSMENT & PLAN ICD-10-CM 1. Second trimester Z34.92 POCT urinalysis dipstick manually resulted Return OB: Patient presents today for a routine obstetrics appointment. Patient is currently 19w6d . Patient states she is doing well but has complaints of being tired due to current . Patient has verbalizes frequent movement. Patient came in today for evaluation of lower abdominal pain in groin bilaterally and radiation into leg. Pt given info on round ligament pain and suggested to get belly band. Pt on schedule next week but informed if she feels better she can return in 4 weeks. Pt also scheduled for anatomy scan Orders Placed This Encounter Procedures POCT urinalysis dipstick manually resulted Follow Up: Patient is to return to office in 4 week for routine OB appointment. Documented by MAEGAN Link on behalf of: MAEGAN Link documented in this encounter [facility] 05-29-2024 History of Present illness Narrative Reason for Appointment: Patient ID: Lorie Martinez is a 23 y.o. female who presents for No chief complaint on file. Patient presents today for Annual Exam., STD Check., and Return OB appointment. MEDICATIONS Current Outpatient Medications Medication Instructions Progesterone Micronized (progesterone, bulk,) powder ALLERGIES Allergies Allergen Reactions Ondansetron Rash PROBLEMS Active Ambulatory Problems Diagnosis Date Noted No Active Ambulatory Problems Resolved Ambulatory Problems Diagnosis Date Noted No Resolved Ambulatory Problems Past Medical History: Diagnosis Date ADHD (attention deficit hyperactivity disorder) ([facility]) HISTORY PAST MEDICAL HISTORY SOCIAL HISTORY Past Medical History: Diagnosis Date ADHD (attention deficit hyperactivity disorder) ([facility]) Social History Tobacco Use Smoking status: Unknown [...] Constitutional: Appearance: Normal appearance. She is well-developed. Genitourinary: Vulva normal. Breasts: Breasts are soft. Right: Normal. Left: Normal. Cardiovascular: Rate and Rhythm: Normal rate and [...] nursing note reviewed. Exam conducted with a ct scan technologist present. Vitals: Estimated body mass index is 39 kg/m as calculated from the following: Height as of 08/01/23: 5' 7 . Weight as of this encounter: 249 lb. BP: 120/60 No LMP recorded. Patient is . ASSESSMENT & PLAN ICD-10-CM 1. 15 weeks gestation of Z3A.15 POCT urinalysis dipstick manually resulted Alpha fetoprotein, maternal Alpha fetoprotein, maternal 2. Screening, , for anatomic survey Z36.89 US OB ANATOMY SINGLE W US OB CERVICAL LENGTH 3. Well woman exam with routine gynecological exam Z01.419 Pap Smear 4. Exposure to STD Z20.2 CHLAMYDIA TRACHOMATIS (GENITO/STI) Neisseria gonorrhea DNA probe, direct 5. Vaginal discharge N89.8 SURESWAB(R) ADVANCED VAGINITIS PLUS, TMA Return OB/Annual Exam: Patient presents today for a annual exam/routine obstetrics appointment. Patient is currently 15w4d . Patient states she is doing well but has complaints of nausea in the morning. Pap and cultures was obtained without difficulty and patient was given orders for anatomy scan and msAFP to be obtained. Pt desires tubal ligation. Will try IUD Orders Placed This Encounter Procedures US OB ANATOMY SINGLE W US OB CERVICAL LENGTH CHLAMYDIA TRACHOMATIS (GENITO/STI) Neisseria gonorrhea DNA probe, direct Alpha fetoprotein, maternal POCT urinalysis dipstick manually resulted Follow Up: Patient is to schedule annual exam for next year and return to office in 4 weeks for OB appointment. 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 thru Dr Abbasi, she should [...] [id number] documented in this encounter [facility] Evaluation note Diagnosis PTSD (post-traumatic stress disorder)- Primary Posttraumatic stress disorder General counseling and advice for contraceptive management Class 2 obesity due to excess calories without serious comorbidity with body mass index (BMI) of 37.0 to 37.9 in adult documented [facility] this [facility] Diagnosis 24 weeks gestation of Diabetes mellitus screening Screening for diabetes mellitus documented in this encounter [facility]* Diagnosis Third trimester state, incidental 28 weeks gestation of size inconsistent with dates documented in this encounter [facility]* Diagnosis Third trimester state, incidental 30 weeks gestation of documented in this encounter [facility]* Diagnosis 32 weeks gestation of Third trimester state, incidental Anxiety with depression documented in this encounter [facility]* Diagnosis 15 weeks gestation of Screening, , for anatomic survey Encounter for anatomic survey Well woman exam with routine gynecological exam Routine gynecological examination Exposure to STD Vaginal discharge Leukorrhea, not specified as infective documented [facility]* Diagnosis Second trimester state, incidental documented in this encounter [facility] HealthcareInstructionsNot on filedocumented in this encounterAs[facility] CenterReason for referral (narrative)* Consultation (Routine) - Pending Review Specialty Diagnoses / Procedures Referred By Vinny stoddard Referred To Contact Diagnoses PTSD (post-traumatic stress disorder) Summer Davalos APRN-FNP [address] [place] [address] Referral ID Status Reason Start Date Expiration Date Visits Requested Visits Authorized [id number] Pending Review Patient Preference 12/20/2023 12/19/2024 1 1 [facility] Summary Purpose Family History No [...] and content) DATE CREATED AUTHOR 01/27/2023 [facility] DATE CREATED AUTHOR AUTHOR'S ORGANIZ ATION 01/20/2024 [facility] DATE CREATED AUTHOR AUTHOR'S ORGANIZ ATION 02/20/2024 [facility] DATE CREATED AUTHOR AUTHOR'S ORGANIZ ATION 07/06/2024 [facility] DATE CREATED AUTHOR AUTHOR'S ORGANIZ ATION 09/28/2024 [facility] EPIC Care Teams (unrecognized sec tion and content) Gage Maker Relationship Specialty Start Date End Date Reid Jasmine MD PCP - General Family Medicine 08/01/23 Gage Maker Relationship Specialty Start Date End Date Summer Davalos APRN-FNP [address] [place] [address] PCP - General Internal Medicine 09/14/23 Reason [...] BE BASED ON THE PRIMARY CLINICAL RECORDS. [employer] provides no warranty or guarantee of the accuracy or completeness of information in this document.
[2024-09-29 13:47] VITALS: BP 115/59; PULSE 87
--- NOTE | 2024-09-29 14:06 | US_ITS ---
[address] [address] Patient Name: FATOUMATA VIEYRA MRN: [facility]:[id number] date: 2000 Sex: F Assigned Patient Location: [facility] Current Patient Location: Accession/Order Number: [id number] Exam Date: 09/29/2024 14:10 Report Date: 09/29/2024 16:08 At the request of: CARMEN CHENEY Procedure: US OB BPP w non-stress EXAM: US OB BPP w non-stress HISTORY: decreased movement COMPARISON: OB ultrasound 09/11/2024 and earlier. TECHNIQUE: ultrasound biophysical profile. FINDINGS: Single fetus cephalic presentation. Heart rate 130 bpm. WARREN 10.1 cm, deepest pocket 4.4 cm. movement: 2 tone: 2 breathin Amniotic fluid: 2 Total score 8/8. US/US OB BPP w non-stress IMPRESSION: Biophysical profile score 8/8. Electronically authenticated by: LOKI PAINTER Date: 09/29/2024 16:08
== END 2024-09-29 14:45 | disposition home or self-care (01) ==
LOC: FBCO 13:16 → FBC 13:42
PROVIDERS: PCP Nurse Practitioner Family; Visit Provider Obstetrics & Gynecology
DX: O36.8130 Decreased fetal movements, third trimester, not applicable or unspecified (principal)
CPT/HCPCS: 76818

== ENCOUNTER 2024-10-22 20:43 | Outpatient (REF) | payer OTHER, SELFPAY ==
--- OUTSIDE RECORDS SUMMARY | 2024-10-22 20:46 | XMS_ITS | CCD ---
Author Organization [facility] Care Team Providers Care [place]erry[place] Deckhand Name Role Phone NAMITA, DR BEAN Primary [...] Reid Jasmine MD Primary Care Provider Suzan ACCESS MANAGER-SPEECH COACH, Summer Gutiérrez Primary Care Provider SUMMER DAVALOS [...] Unavailable Unavailable Primary Care Provider Unavailabl e ALYSSA PRETTY Attending Unavailable AYLEENALESSIOY Attending Unavailable AYLEEN, CARMEN Attending Unavailable MARIA DE JESUS, ALYSSA Attending Unavailable AYLEEN, CARMEN Attending Unavailable MARIA DE JESUS, ALYSSA Attending Unavailable AYLEEN, CARMEN Attending Unavailable MARIA DE JESUS, ALYSSA Attending Unavailable AYLEEN, CARMEN Attending Unavailable Allergies Allergy Classification Reported Allergen(s) Allergy Type Date of Onset Reaction(s) Facility (1 source) Ondansetron Drug Allergy [facility] Repository (20 sources) Ondansetron Drug Allergy 12-11-2022 Salma [facility] Healthcare Work Phone: (4 sources) Ondansetron; Translations: [ONDANSETRON HCL] Drug Allergy 12-11-2022 Salma [facility] Medications Current Medications Medication Drug Class(es) Dates Sig (Normalized) Sig (Original) Calcium Carbonate Antacid (TUMS PO) (17 sources) Calcium Carbonat e Antacid (TUMS PO) Take by mouth Active citalopram 20 mg oral tablet (5 sources) Serotonin Reuptake Inhibitor Start: 09-25-2024 End: [...] 0 Active MV-Min-Fe Fum-FA-DHA ( 1 PO) (17 sources) MV-Min- Fe Fum-FA-DHA ( 1 PO) Take by mouth Active Completed/Discontinued Medications Medication Drug Class(es) Dates Sig (Normalized) Sig (Original) Progesterone (8 sources) Progesterone Start: 04-05-2024 End: 06-28-2024 Progesterone Micronized (progesterone, bulk,) powder 04/05/2024 06/28/2024 Discontinued Start: 04-05-2024 Progesterone M icronized (progesterone, bulk,) powder 04/05/2024 Active Problems Active Problems Problem Classification Problem Date Documented Date Episodic/Chronic Anxiety disorders (9 sources) Posttraumatic stress disorder; Translations: [Post-traumatic stress [...] 12-20-2023 Chronic Other and delivery including normal (15 sources) Third trimester ; Translations: [Encounter for [...] of ] 09-11-2024 Episodic Residual codes; unclassified (7 sources) Gestation period, 32 weeks; Translations: [32 weeks gestation of ] Onset: 09-25-2024 09-25-2024 Episodic Residual codes; unclassified (2 sources) Gestation period, 35 weeks; Translations: [35 weeks gestation of ] 10-15-2024 Episodic Skin and subcutaneous tissue infections (1 [...] Range Facility Urinalysis macro (dipstick) panel (U)on 10-15-2024 Bilirubin, UA Negative Negative - 4(70) +++ mg/dL [facility] Blood, UA Negative Negative - 50 Jaguar/mcL [facility] Clarity, UA Clear [facility] Color, UA Yellow [facility] Glucose, UA Negative Negative - 1999(110) ++++ mg/dL [facility] Interpretation and review of laboratory results Normal [facility] Ketones, UA Negative Negative - 160(16) ++++ mg/dL [facility] Leukocytes, UA Negative Negative - 500+++ Lizeth/mcL [facility] Nitrite, UA Negative Negative - Positive [facility] pH, UA 7 5 - 9 [facility] Protein, UA Negative Negative - 2000(20) ++++ mg/dL [facility] Spec Grav, UA 1.02 1 - 1.03 [facility] Urobilinogen, UA 1.0 0.2 - 12 mg/dL [facility] Urinalysis macro (dipstick) panel (U)on 09-25-2024 Bilirubin, UA Negative Negative - 4(70) +++ mg/dL [facility] Blood, UA Negative Negative - 50 Jaguar/mcL [facility] Clarity, UA Clear [facility] Color, UA Yellow [facility] Glucose, UA Negative Negative - 1999(110) ++++ mg/dL [facility] Interpretation and review of laboratory results Normal [facility] Ketones, UA Negative Negative - 160(16) ++++ mg/dL [facility] Leukocytes, UA Negative Negative - 500+++ Lizeth/mcL [facility] Nitrite, UA Negative Negative - Positive [facility] pH, UA 7 5 - 9 [facility] Healthcare Protein, UA Negative Negative - 1999(20) ++++ mg/dL [facility] Spec Grav, UA 1.01 1 - 1.03 [facility] Urobilinogen, UA 0.2 0.2 - 12 mg/dL [facility] Urinalysis macro (dipstick) panel (U)on 09-11-2024 Bilirubin, UA Negative Negative - 4(70) +++ mg/dL [facility] Blood, UA Negative Negative - 50 Jaguar/mcL [facility] Clarity, UA Clear [facility] Color, UA Yellow [facility] Glucose, UA Negative Negative - 1999(110) ++++ mg/dL [facility] Interpretation and review of laboratory results Normal [facility] Ketones, UA Negative Negative - 160(16) ++++ mg/dL [facility] Leukocytes, UA Negative Negative - 500+++ Lizeth/mcL [facility] Nitrite, UA Negative Negative - Positive [facility] pH, UA 5.5 5 - 9 [facility] Protein, UA Negative Negative - 1999(20) ++++ mg/dL [facility] Spec Grav, UA 1.02 1 - 1.03 [facility] Urobilinogen, UA 1.0 0.2 - 12 mg/dL [facility] Urinalysis macro (dipstick) panel (U)on 08-28-2024 Bilirubin, UA Negative Negative - 4(70) +++ mg/dL [facility] Blood, UA Negative Negative - 50 Jaguar/mcL [facility] Clarity, UA Clear [facility] Color, UA Light Yellow [facility] Glucose, UA Negative Negative - 1999(110) ++++ mg/dL [facility] Interpretation and review of laboratory results Normal [facility] Ketones, UA Negative Negative - 160(16) ++++ mg/dL [facility] Leukocytes, UA Negative Negative - 500+++ Lizeth/mcL [facility] Nitrite, UA Negative Negative - Positive [facility] pH, UA 5.5 5 - 9 [facility] Protein, UA Negative Negative - 1999(20) ++++ mg/dL [facility] Spec Grav, UA 1.015 1 - 1.03 [facility] Urobilinogen, UA 1.0 0.2 - 12 mg/dL [facility] Urinalysis macro (dipstick) panel (U)on 07-30-2024 Bilirubin, UA Negative Negative - 4(70) +++ mg/dL [facility] Blood, UA Negative Negative - 50 Jaguar/mcL [facility] Clarity, UA Clear [facility] Color, UA Yellow [facility] Glucose, UA Negative Negative - 1999(110) ++++ mg/dL [facility] Interpretation and review of laboratory results Normal [facility] Ketones, UA Negative Negative - 160(16) ++++ mg/dL [facility] Leukocytes, UA Negative Negative - 500+++ Lizeth/mcL [facility] Nitrite, UA Negative Negative - Positive [facility] pH, UA 6.5 5 - 9 [facility] Protein, UA Negative Negative - 1999(20) ++++ mg/dL [facility] Spec Grav, UA 1.015 1 - 1.03 [facility] Urobilinogen, UA 0.2 0.2 - 12 mg/dL [facility] Urinalysis macro (dipstick) panel (U)on 06-28-2024 Bilirubin, UA Positive Negative - 4(70) +++ mg/dL [facility] Comment on above: small Blood, UA Negative Negative - 50 Jaguar/mcL [facility] Clarity, UA Clear [facility] Color, UA Yellow [facility] Glucose, UA Negative Negative - 1999(110) ++++ mg/dL [facility] Interpretation and review of laboratory results Abnormal [facility] Ketones, UA Positive Negative - 160(16) ++++ mg/dL [facility] Comment on above: 15 Leukocytes, UA Negative Negative - 500+++ Lizeth/mcL [facility] Nitrite, UA Negative Negative - Positive [facility] pH, UA 5.5 5 - 9 [facility] Protein, UA Trace Negative - 1999(20) ++++ mg/dL [facility] Spec Grav, UA 1.030 1 - 1.03 [facility] Urobilinogen, UA 0.2 0.2 - 12 mg/dL [facility] AFP, SERUM, OPEN SPINA BIFID Aon 05-31-2024 AFP MOM 1.17 . [facility] AFP VALUE 27.6 ng/mL . [facility] COMMENT: Comment . [facility] Comment on above: Vandana Nina , Ph.D., [facility] Director References: Available Upon Request. Multiples Of Median Cutoffs For AFP Elevations Rodriguez 2.5 Black 2.8 IDD 2.0 Twins 4.5 Abbreviation Definitions IDD - Insulin Dep Diabetes OSBR - Open Spina Bifida Risk For further inquiries contact [facility] at [phone]. This test was developed and its performance characteristics determined by [employer]. It has not been cleared or approved by the Food and Drug Administration. Performed at: [facility] [place], [place] [id number] Design Consultant: Prashant Phoenix Formerly [facility], Phone: [phone] GEST. AGE ON COLLECTION DATE 15.6 . weeks [facility] GESTAT. AGE BASED ON Ultrasound . [facility] Comment on above: 15.6 on 05/29/2024 Recalculations are not recommended when gestational dating by LMP and ultrasound are within 10 days. INSULIN DEP DIABETES No . [facility] INTERPRETATION Comment . [facility] Comment on above: Interpretation: Scre en [...] Customer Services to discuss available options. The [employer] recommends amniocentesis be offered to women age 35 and older. [age] [facility] MULTIPLE GESTATION No . [facility] OSBR RISK 1 IN 7137 . [facility] RACE . [facility] RESULTS Report . [facility] TEST RESULTS: Negative . [facility] WEIGHT 249 . lbs [facility] N N ULTRASOUND [id number] 4 15 N 1 Y 249 N N N N N White/ [facility] URETHRITIS/DISCHARGE PLUS VA GINITIS (HTRX)on 05-30-2024 ATOPOBIUM VAGINAE 0.000 [facility] ATOPOBIUM VAGINAE Not detected [facility] BVAB 2,3 (BACTERIAL VAGINOSIS ASSOCIATED BACTERIA 2, 3); MOBILUNCUS SPP 0.000 [facility] BVAB 2,3 (BACTERIAL VAGINOSIS ASSOCIATED BACTERIA 2, 3); MOBILUNCUS SPP Not detected [facility] JENNY ALBICANS, PARAPSILOSIS, TROPICALIS 0.000 [facility] JENNY ALBICANS, PARAPSILOSIS, TROPICALIS Not detected [facility] JENNY GLABRATA 0.000 [facility] JENNY GLABRATA Not detected [facility] JENNY KRUSEI 0.000 [facility] JENNY KRUSEI Not detected [facility] CHLAMYDIA TRACHOMATIS 0.000 [facility] CHLAMYDIA TRACHOMATIS Not detected [facility] GARDNERELLA VAGINALIS 0.000 [facility] GARDNERELLA VAGINALIS Not detected [facility] MEGASPHAERA (TYPES 1, 2) 0.000 [facility] MEGASPHAERA (TYPES 1, 2) Not detected [facility] MYCOPLASMA GENITALIUM 0.000 [facility] MYCOPLASMA GENITALIUM Not detected [facility] NEISSERIA GONORRHOEAE 0.000 [facility] NEISSERIA GONORRHOEAE Not detected [facility] TRICHOMONAS VAGINALIS 0.000 [facility] TRICHOMONAS VAGINALIS Not detected [facility] Cytology Cervical or vaginal smear or scraping studyon 05-29-2024 [facility] Urinalysis macro (dipstick) panel (U)on 05-29-2024 Bilirubin, UA Negative Negative - 4(70) +++ mg/dL [facility] Blood, UA Negative Negative - 50 Jaguar/mcL [facility] Clarity, UA Clear [facility] Color, UA Karen [facility] Glucose, UA Negative Negative - 1999(110) ++++ mg/dL [facility] Interpretation and review of laboratory results Normal [facility] Ketones, UA Negative Negative - 160(16) ++++ mg/dL [facility] Leukocytes, UA Negative Negative - 500+++ Lizeth/mcL [facility] Nitrite, UA Negative Negative - Positive [facility] pH, UA 7.0 5 - 9 [facility] Protein, UA Negative Negative - 1999(20) ++++ mg/dL [facility] Spec Grav, UA 1.010 1 - 1.03 [facility] Urobilinogen, UA 0.2 0.2 - 12 mg/dL [facility] CBC AND AUTO DIFFon 02-17-20 24 ABSOLUTE BASOPHIL 0.2 X10E9/L Normal 0.0-0.2 [facility] Comment on above: Performed By: #### Terri UGALDE, FEPR, 2275- #### [facility] ([id number]) [address] [place] [address] ABSOLUTE NEUTROPHIL 3.1 X10E9/L Normal 1.5-6.6 [facility] Comment on above: Performed By: #### Terri UGALDE, FEPR, 2275- #### [facility] ([id number]) [address], [facility] [address] [place] [address] Basophils/100 WBC (Bld) 3.0 % Normal [facility] Comment on above: Performed By: #### Terri UGALDE, FEPR, 2275-4 #### [facility] ([id number]) [address], [address] [place] [address] Eosinophils (Bld) [#/Vol] 0.2 10*3/uL Normal 0.0-0.4 [facility] Comment on above: Performed By: #### Terri UGALDE, FEPR, 2276-01 #### [facility] ([id number]) [address] [address] Eosinophils/100 WBC (Bld) 3.4 % Normal [facility] Comment on above: Performed By: #### Terri UGALDE, FEPR, 2276-01 #### [facility] ([id number]) [address] [place] [address] Erythrocyte distribution width (RBC) [Ratio] 13.3 % Normal 11.5-15.0 [facility] Comment on above: Performed By: #### Terri UGALDE, FEPR, 2275-4 #### [facility] ([id number]) [address], [address] [place] [address] Hematocrit (Bld) [Volume fraction] 40.3 % Normal 35-47 [facility] Comment on above: Performed By: #### AMBER Murray BCA, 2276-01 #### [facility] ([id number]) [address], [address] [place] [address] Hemoglobin (Bld) [Mass/Vol] 13.8 g/dL Normal 11.7-15.5 [facility] Comment on above: Performed By: #### Terri UGALDE FEPR, 2275- #### [facility] ([id number]) [address] [place] [address] Lymphocytes (Bld) [#/Vol] 2.1 10*3/uL Normal 1.0-3.5 [facility] Comment on above: Performed By: #### Terri UGALDE FEPR, 2275-4 #### [facility] ([id number]) [address], [facility] [address] [place] [address] Lymphocytes/100 WBC (Bld) 35.1 % Normal [facility] Comment on above: Performed By: #### Terri UGALDE FEPR, 4 #### [facility] ([id number]) [address] [place] [address] MCH (RBC) [Entitic mass] 29.0 pg Normal 27-34 [facility] Comment on above: Performed By: #### Terri UGALDE FEPR, 2276-01 #### [facility] ([id number]) [address], [address] [place] [address] MCHC (RBC) [Mass/Vol] 34.2 g/dL Normal 32-36 [facility] Comment on above: Performed By: #### Terri UGALDE, FEPR, 4 #### [facility] ([id number]) [address], [address] [place] [address] MCV (RBC) [Entitic vol] 85 fL Normal 80-100 [facility] Comment on above: Performed By: #### C BCA, FEPR, 6-4 #### [facility] ([id number]) [address], [address] [place] [address] Monocytes (Bld) [#/Vol] 0.5 10*3/uL Normal 0-0.9 [facility] Comment on above: Performed By: #### Terri BCA, FEPR, 2275-4 #### [facility] ([id number]) [address], [address] [place] [address] Monocytes/100 WBC (Bld) 7.5 % Normal [facility] Comment on above: Performed By: #### C BCA, FEPR, 2276-01 #### [facility] ([id number]) [address], [address] [place] [address] Neutrophils/100 WBC (Bld) 51.0 % Normal [facility] Comment on above: Performed By: #### Terri BCA, FEPR, 2275- #### [facility] ([id number]) [address], [address] [place] [address] Platelet mean volume (Bld) [Entitic vol] 8.8 fL Normal 7-12 [facility] Comment on above: Performed By: #### Terri UGALDE, FEPR, 2275- #### [facility] ([id number]) [address], [address] [place] [address] Platelets (Bld) [#/Vol] 272 10*3/uL Normal 150-450 [facility] Comment on above: Performed By: #### Terri BCA, FEPR, 2275-4 #### [facility] ([id number]) [address], [address] [place] [address] RBC COUNT 4.75 X10E12/L Normal 3.80-5.20 [facility] Comment on above: Performed By: #### C BCA, FEPR, 6-4 #### [facility] ([id number]) [address] [address] [place] [address] WBC (Bld) [#/Vol] 6.1 10*3/uL Normal 4.0-11.0 [facility] Comment on above: Performed By: #### C BCA, FEPR, 6-4 #### [facility] ([id number]) [address], [address] [address] FERRITINon 02-17-2024 Ferritin [Mass/Vol] 50 ng/mL Normal 11-307 [facility] Comment on above: Performed By: #### C BCA, FEPR, 2275-4 #### [facility] ([id number]) [address] [address] IRON PROFILEon 02-17-2024 Iron [Mass/Vol] 59 ug/dL Normal 50-170 [facility] Comment on above: Performed By: #### C BCA, FEPR, 2275-4 #### [facility] ([id number]) [address], [address] [place] [address] IRON BINDING 384 ug/dL Normal 250-425 [facility] Comment on above: Performed By: #### C BCA, FEPR, 6-4 #### [facility] ([id number]) [address], [address] [place] [address] IRON SATURATION 15 % SATURATION Normal 15-50 [facility] Comment on above: Performed By: #### C BCA, FEPR, 6-4 #### [facility] ([id number]) [address], [address] [place] [address] HCG ( test) Ql (U)o n 01-19-2024 Beta HCG ( test) Ql (U) Negative Normal [facility] Comment on above: Performed By: #### 2 106-3 #### [facility] ([id number]) [address] [place] [address] [place] [address] URN MACROSCOPIC NURon 2023 BILIRUBIN SUDHIR Negative Normal [facility] Comment on above: Performed By: #### N UM #### [facility] ([id number]) [address] [place] [address] [place] [address] BLOOD/HGB SUDHIR Trace Abnormal [facility] Comment on above: Performed By: #### N UM #### [facility] ([id number]) [address] [place] [address] [place] [address] GLUCOSE SUDHIR Negative Normal [facility] Comment on above: Performed By: #### N UM #### [facility] ([id number]) [address] [place] [address] [place] [address] KETONES SUDHIR Negative Normal [facility] Comment on above: Performed By: #### N UM #### [facility] ([id number]) [address] [place] [address] [place] [address] LEUKOCYTE ESTERASE SUDHIR Negative Normal [facility] Comment on above: Performed By: #### N UM #### [facility] ([id number]) [address] [place] [address] [place] [address] NITRITE SUDHIR Negative Normal [facility] Comment on above: Performed By: #### N UM #### [facility] ([id number]) [address] [place] [address] [place] [address] PH SUDHIR 6.0 Normal 5.0-8.5 [facility] Comment on above: Performed By: #### N UM #### [facility] ([id number]) [address] [place] [address] [place] [address] PROTEIN SUDHIR Negative Normal NE[facility] Comment on above: Performed By: #### N UM #### [facility] ([id number]) [address] [place] [address] SPECIFIC GRAVITY SUDHIR >=1.030 Normal 1.003-1.035 [facility] Comment on above: Performed By: #### N UM #### [facility] ([id number]) [address] [place] [address] UROBILINOGEN SUDHIR 0.2 eu/dL Normal <1.1 [facility] Comment on above: Performed By: #### N UM #### [facility] ([id number]) [address] [place] [address] TBH PREG QUANT HCGon 024 HCG QUANTITATIVE <1 mIU/mL [facility] Comment on above: 5-50 0.2-1 WEEK 50-500 1-2 WEEKS 100-5,000 2-3 WEEKS 500-10,000 3-4 WEEKS 1,000-50,000 4-5 WEEKS 10,000-100,000 5-6 WEEKS 15,000-200,000 6-8 WEEKS 10,000-100,000 2-3 MONTHS [facility] CBC AUTO DIFFon 01-19-2023 BASO # 0.1 103/ul Normal 0.0-0.1 [facility] Comment on above: Performed By: #### C BC #### [facility] [address] [place] [address] Dr. Kristie Marrero Basophils/100 WBC (Bld) 0.5 % Normal 0.2-2.0 [facility] Comment on above: Performed By: #### C BC #### [facility] [address] [place] [address] Dr. Krsitie Marrero EO # 0.2 103/ul Normal 0.0-0.7 [facility] Comment on above: Performed By: #### C BC #### [facility] [address] [place] [address] Dr. Kristie Marrero Eosinophils/100 WBC (Bld) 2.0 % Normal 0.9-7.0 [facility] Comment on above: Performed By: #### C BC #### [facility] [address] [place] [address] Dr. Kristie Marrero Erythrocyte distribution width (RBC) [Ratio] 12.0 % Normal 11.0-15.0 [facility] Comment on above: Performed By: #### C BC #### [facility] [address] [place] [address] Dr. Kristie Marrero Hematocrit (Bld) [Volume fraction] 38.0 % Normal 36.0-48.0 [facility] Comment on above: Performed By: #### C BC #### [facility] [address] [place] [address] Dr. Kristie Marrero Hemoglobin (Bld) [Mass/Vol] 13.3 g/dL Normal 12.0-16.0 [facility] Comment on above: Performed By: #### C BC #### [facility] [address] [place] [address] Dr. Kristie Marrero IG # 0.04 10e3/ul Critically high 0.00-0.03 [facility] Comment on above: Performed By: #### C BC #### [facility] [address] [place] [address] Dr. Kristie Marrero IG % 0.4 % Normal 0.0-0.5 [facility] Comment on above: Performed By: #### C BC #### [facility] [address] [place] [address] Dr. Kristie Marrero LYMPH # 1.3 103/ul Normal 1.2-3.8 [facility] Comment on above: Performed By: #### C BC #### [facility] [address] [place] [address] Dr. Kristie Marrero Lymphocytes/100 WBC (Bld) 12.3 % Critically low 20.5-60.0 [facility] Comment on above: Performed By: #### C BC #### [facility] [address] [place] [address] Dr. Kristie Marrero MANUAL DIFF REQ NO Normal [facility] Comment on above: Performed By: #### C BC #### [facility] [address] [place] [address] Dr. Kristie Marrero MCH (RBC) [Entitic mass] 29.2 pg Normal 26.7-34.0 [facility] Comment on above: Performed By: #### C BC #### [facility] [address] [address] [address] Kristie Marrero MCHC (RBC) [Mass/Vol] 35.0 g/dL Normal 29.9-35.2 [facility] Comment on above: Performed By: #### C BC #### [facility] [address] [address] [address] Kristie Marrero MCV (RBC) [Entitic vol] 83.3 fL Normal 81.0-99.0 [facility] Comment on above: Performed By: #### C BC #### [facility] [address] [place] [address] Dr. Kristie Marrero MONO # 0.7 103/ul Normal 0.3-0.8 [facility] Comment on above: Performed By: #### C BC #### [facility] [address] [address] [address] Kristie Marrero Monocytes/100 WBC (Bld) 7.0 % Normal 1.7-12.0 [facility] Comment on above: Performed By: #### C BC #### [facility] [address] [address] [address] Kristie Marrero NEUT # 8.2 103/ul Critically high 1.4-6.5 [facility] Comment on above: Performed By: #### C BC #### [facility] [address] [address] [address] Kristie Marrero Neutrophils/100 WBC (Bld) 77.8 % Critically high 43.0-75.0 [facility] Comment on above: Performed By: #### C BC #### [facility] [address] [address] [address] Kristie Marrero Platelet mean volume (Bld) [Entitic vol] 9.5 fL Normal 9.5-13.5 [facility] Comment on above: Performed By: #### C BC #### [facility] [address] [place] [address] Dr. Kristie Marrero PLT 265 103/ul Normal 150-450 [facility] Comment on above: Performed By: #### C BC #### [facility] [address] [place] [address] Dr. Kristie Marrero RBC 4.56 106/ul Normal 4.20-5.40 [facility] Comment on above: Performed By: #### C BC #### [facility] [address] [place] [address] Dr. Kristie Marrero WBC 10.5 103/ul Normal 4.0-11.0 [facility] Comment on above: Performed By: #### C BC #### [facility] [address] [place] [address] Dr. Kristie Marrero PREG HCG QUALon 01-19-2023 , QUAL Negative Normal NEGATIVE [facility] Comment on above: Performed By: #### P REG #### [facility] [address] [place] [address] Dr. Kristie Marrero CHLAMYDIA/GONOCOCCUS RADHA (SW AB/URINE/PAPon 11-19-2022 Chlamydia trachomatis, RADHA Negative Normal Negative [facility] Comment on above: Performed By: #### C T/NGNA #### [facility] [address] [place] [address] Dr. Kristie Marrero Neisseria gonorrhoeae, RADHA Negative Normal Negative [facility] Comment on above: Performed By: #### C T/NGNA #### [facility] [address] [place] [address] Dr. Kristie Marrero VAGINITIS/VAGINOSIS DNA PROB Syed 11-18-2022 Jenny species Negative Normal Negative [facility] Comment on above: Performed By: #### V AGINT #### [facility] [address] [place] [address] Dr. Kristie Marrero Gardnerella vaginalis Positive Abnormal Negative [facility] Comment on above: Performed By: #### V AGINT #### [facility] [address] [place] [address] Dr. Kristie Marrero Trichomonas vaginalis Negative Normal Negative [facility] Comment on above: Performed By: #### V AGINT #### [facility] [address] [address] [address] Kristie Marrero Covid-19 PCR ([facility])on 04-10 SARS-CoV-2 (COVID-19) RNA RADHA+probe Ql (Unsp spec) Detected Critically abnormal NOT DETECTED [facility] Comment on above: Result Comment: This test is not yet approved or cleared by the [place] FDA. When there are no FDA-approved or cleared tests available, and other criteria are met, FDA can make tests available under an emergency access mechanism called an Emergency Use Authorization (EUA). The EUA for this test is supported by the [place] of Health and Human Service's (HHS's) declaration [...] used). Performed By: #### C VDTBH #### [facility] [id number] Kristie Marrero Vital Signs Date Time Vital Sign Value Performing Clinician Facility 10-15-2024 14:53-0500 Body mass index (BMI) [Ratio] 41.21 kg/m2 [employer] Work Phone: [facility] 10-15-2024 14:53-0500 Body weight 119.35 kg [employer] Work Phone: [facility] 10-15-2024 14:53-0500 Diastolic blood pressure 72 mm[Hg] [employer] Work Phone: [facility] 10-15-2024 14:53-0500 Systolic blood pressure 114 mm[Hg] [employer] Work Phone: [facility] 09-25-2024 14:03-0500 Body mass index (BMI) [Ratio] 40.43 kg/m2 Alyssa ISSA Work Phone: [facility] 09-25-2024 14:03-0500 Body weight 117.08 kg Alyssa Raleigh PA Work Phone: [facility] 09-25-2024 14:03-0500 Diastolic blood pressure 68 mm[Hg] Alyssa Maria De Jesus PA Work Phone: [facility] 09-25-2024 14:03-0500 Systolic blood pressure 118 mm[Hg] Alyssa Raleigh PA Work Phone: [facility] 09-11-2024 10:46-0500 Body mass index (BMI) [Ratio] 40.53 kg/m2 Carmen Ayleen DO Work Phone: [facility] 09-11-2024 10:46-0500 Body weight 117.39 kg Carmen Ayleen DO Work Phone: [facility] 09-11-2024 10:46-0500 Diastolic blood pressure 70 mm[Hg] Carmen Ayleen DO Work Phone: [facility] 09-11-2024 10:46-0500 Systolic blood pressure 112 mm[Hg] Carmen Ayleen DO Work Phone: [facility] 08-28-2024 10:28-0500 Body mass index (BMI) [Ratio] 41.16 kg/m2 Alyssa Maria De Jesus PA Work Phone: [facility] 08-28-2024 10:28-0500 Body weight 119.2 kg Alyssa Raleigh PA Work Phone: [facility] 08-28-2024 10:28-0500 Diastolic blood pressure 72 mm[Hg] Alyssa Maria De Jesus PA Work Phone: [facility] 08-28-2024 10:28-0500 Systolic blood pressure 114 mm[Hg] Alyssa Raleigh PA Work Phone: [facility] 07-30-2024 09:39-0400 Body mass index (BMI) [Ratio] 40.41 kg/m2 Carmen Ayleen DO Work Phone: [facility] 07-30-2024 09:39-0400 Body weight 117.03 kg Carmen Ayleen DO Work Phone: [facility] 07-30-2024 09:39-0400 Diastolic blood pressure 68 mm[Hg] Carmen Ayleen DO Work Phone: [facility] 07-30-2024 09:39-0400 Systolic blood pressure 112 mm[Hg] Carmen Ayleen DO Work Phone: [facility] 06-28-2024 15:06-0400 Body mass index (BMI) [Ratio] 39.39 kg/m2 Alyssa Pretty PA Work Phone: [facility] 06-28-2024 15:06-0400 Body weight 114.08 kg Alyssa Maria De Jesus PA Work Phone: [facility] 06-28-2024 15:06-0400 Diastolic blood pressure 78 mm[Hg] Alyssa Pretty PA Work Phone: [facility] 06-28-2024 15:06-0400 Systolic blood pressure 110 mm[Hg] Alyssa Raleigh PA Work Phone: [facility] 05-29-2024 11:14-0400 Body mass index (BMI) [Ratio] 39 kg/m2 Carmen Ayleen DO Work Phone: [facility] 05-29-2024 11:14-0400 Body weight 112.95 kg Carmen Ayleen DO Work Phone: [facility] 05-29-2024 11:14-0400 Diastolic blood pressure 60 mm[Hg] Carmen Ayleen DO Work Phone: [facility] 05-29-2024 11:14-0400 Systolic blood pressure 120 mm[Hg] Carmen Ayleen DO Work Phone: [facility] 12-20-2023 15:22-0400 Body height 170.2 cm Summer Davalos ACCESS MANAGER-SPEECH COACH Work Phone: [facility] 12-20-2023 15:22-0400 Body mass index (BMI) [Ratio] 38.28 kg/m2 Summer Davalos APRN-SPEECH COACH Work Phone: [employer] 12-20-2023 15:22-0400 Body temperature 98.29 [degF] Summer Davalos APRN-SPEECH COACH Work Phone: [employer] 12-20-2023 15:22-0400 Body weight 110.86 kg Summer Davalos APRN-SPEECH COACH [facility] 12-20-2023 15:22-0400 Diastolic blood pressure 80 mm[Hg] Summer Davalos APRN-SPEECH COACH Work Phone: [employer] 12-20-2023 15:22-0400 Heart rate 82 /min Summer Davalos APRN-SPEECH COACH Work Phone: [employer] 12-20-2023 15:22-0400 Respiratory rate 18 /min Summer Davalos APRNEvelioSPEECH COACH Work Phone: [employer] 12-20-2023 15:22-0400 SaO2% (BldA) [Mass fraction] 97 % Summer Davalos APRN-SPEECH COACH Work Phone: [employer] 12-20-2023 15:22-0400 Systolic blood pressure 100 mm[Hg] Summer Davalos APRN-SPEECH COACH Work Phone: [facility] Encounters Encounter Date Encounter Type Care Provider Facility Start: 10-15-2024 End: 10-15-2024 flow sheet Carmen Ayleen DO Work Phone: [facility] Comment on above: Third trimester preg mau; 35 weeks gestation of Start: 10-15-2024 End: 10-15-2024 ambulatory CARMEN AYLEEN Not Available Start: 10-15-2024 End: 10-15-2024 Bamboo flowsheet Carmen Ayleen DO Work Phone: [facility] Start: 10-15-2024 End: 10-15-2024 Bamboo flowsheet Carmen Ayleen DO Work Phone: [facility] Start: 09-25-2024 End: 09-25-2024 Bamboo flowsheet Alyssa ISSA Work Phone: [facility] Start: 09-25-2024 End: 09-25-2024 Bamboo [...] Available Start: 07-30-2024 End: 07-30-2024 Bamboo flowsheet Caremn Ayleen DO Work Phone: [facility] [...] Not Available Start: 07-04-2024 End: 07-04-2024 ambulatory [facility] Start: 06-28-2024 End: 06-28-2024 Office [...] Result Encounter Carmen Ayleen DO Work Phone: [facility] External Department Unsolicited Start: 05-29-2024 End: 05-30-2024 External Result Encounter Carmen Ayleen DO Work Phone: [facility] External Department Unsolicited Start: 05-29-2024 End: 05-29-2024 Patient encounter procedure Carmen Ayleen DO Work Phone: [facility] Healthcare Start: 05-29-2024 End: 05-29-2024 Periodic preventive med est patient 18-39 yrs Carmen Ayleen DO Work Phone: [facility] Comment on above: 15 weeks gestation o f ; Screening, , for anatomic survey; Well woman exam with routine gynecological exam; Exposure to STD; Vaginal discharge Start: 05-29-2024 End: 05-29-2024 ambulatory CARMEN AYLEEN Not Available Start: 05-11-2024 End: 05-11-2024 ambulatory ALYSSA MARIA DE JESUS Not Available Start: 02-17-2024 End: 02-18-2024 ambulatory [facility] Start: 02-17-2024 End: 02-17-2024 ambulatory [facility] Start: 02-15-2024 End: 02-15-2024 ambulatory CARMEN AYLEEN Not Available Start: 02-07-2024 End: 02-07-2024 ambulatory ALYSSA PRETTY Not Available Start: 01-19-2024 End: 01-19-2024 Emergency department patient visit [facility] Start: 12-20-2023 End: 12-20-2023 Office outpatient visit 15 minutes Summer Davalos ACCESS MANAGER-SPEECH COACH Work Phone: [facility] Comment on above: PTSD (post-traumatic stress disorder) (Primary Dx); General counseling and advice for contraceptive management; Class 2 obesity due to excess calories without serious comorbidity with body mass index (BMI) of 37.0 to 37.9 in adult Start: 12-20-2023 End: 12-20-2023 ambulatory [facility] Start: 11-21-2023 Clinisync Result Encounter Carmen Ayleen DO Work Phone: [facility] External Department Unsolicited Start: 11-21-2023 Clinisync Result Encounter Carmen Ayleen DO Work Phone: [facility] External Department Unsolicited Start: 01-19-2023 End: 01-19-[address] DOCTOR BREAUX Facility:[facility] Start: 11-16-2022 End: 11-16-[address] BEATA THOMSON . Facility:[facility] Start: 05-07-2022 End: 05-07-[address] SUKHDEEP HERNÁNDEZ . Facility: Procedures Date Procedure Procedure Detail Performing Clinician Start: 10-15-2024 Urnls dip stick/tabl et rgnt non-auto w/o micrscp Carmen Ayleen DO Work Phone: Start: 09-25-2024 Urnls dip stick/tabl et rgnt [...] Start: 05-29-2024 URETHRITIS/DISCHARGE PLUS VAGINITIS (HTRX) Carmen Abbasi DO Work Phone: Start: 12-20-2023 Adult depression scr eening assessment Summer Davalos ACCESS MANAGER-SPEECH COACH Work Phone: Start: 11-21-2023 [facility] PREG QUANT HCG Core y Ayleen DO Work Phone: Start: 11-16-2022 Microscopic observat ion [Identifier] in Cervix by Cyto stain Summer Davalos ACCESS MANAGER-SPEECH COACH Work Phone: Plan of Treatment Date Care Activity Detail Author Start: 11-13-2029 DTaP,Tdap and Td Vaccines (7 - Td or Tdap) DTaP,Tdap and Td Vaccines (7 - Td or Tdap) [facility] Start: 11-16-2025 Screening for malign ant neoplasm of cervix Pap Smear [facility] Start: 12-19-2024 Adult BMI Screening Adult BMI Screen ing [facility] Start: 12-19-2024 Depression Screening Depression Scre ening [facility] Start: 12-19-2024 Tobacco Screening Tobacco Screening [facility] Start: 10-22-2024 End: 10-22-2024 Patient encounter procedure 10/22/2024 2:00 PM EST Routine [facility] [address] [place] [phone] Carmen Abbasi, DO [address] [place] [address] [facility] Start: 10-15-2024 End: 10-15-2024 Patient encounter procedure [facility] Comment on above: Arrived Start: 09-25-2024 End: 09-25-2024 Patient encounter procedure [facility] Comment on above: Arrived Start: 09-14-2024 Adult BMI Follow Up Plan Adult BMI Follow Up Plan [facility] Start: 09-11-2024 End: 09-11-2024 Patient encounter procedure [facility] Comment on above: Arrived Start: 09-11-2024 End: 09-11-2024 Professional / ancillary services management 09/11/2024 10:00 AM EST Ancillary Procedure [facility] [address] [facility] [place] [phone] [facility] Start: 08-28-2024 End: 08-28-2025 [...] mellitus screening Expected: 07/30/2024 (Approximate), Expires: 07/30/2025 [facility] Comment on above: Expected: 07/30/2024 (Approximate), Expires: 07/30/2025 Start: 07-30-2024 End: 07-30-2024 Patient encounter procedure 07/30/2024 9:10 AM EDT Routine [facility] [address] [place] [phone] Carmen Abbasi, [address] [place] [address] Arrived [facility] Comment on above: Arrived Start: 07-02-2024 End: 07-02-2024 Patient encounter procedure [facility] Start: 07-02-2024 End: 07-02-2024 Professional / ancillary services management 07/02/2024 8:30 AM EDT Ancillary Procedure [facility] [address] [place] [phone] [facility] Start: 06-28-2024 End: 06-28-2024 Patient encounter procedure 06/28/2024 3:00 PM EDT Routine [facility] [address] [place] [phone] Alyssa Pretty PA [address] [place], [place] [phone] Arrived [facility] Comment on above: Arrived Start: 06-10-2024 Influenza vaccination Influenza Vacc ine (#1) [facility] Start: 05-29-2024 End: 07-29-2024 Alpha fetoprotein, maternal Alpha fetoprotein, maternal Lab Routine 15 weeks gestation of Expected: 05/29/2024 (Approximate), Expires: 07/29/2024 [facility] Healthcare Comment on above: Expected: 05/29/2024 (Approximate), Expires: 07/29/2024 Start: 05-29-2024 End: 05-29-2025 US for US OB ANATOMY SINGLE W US OB CERVICAL LENGTH Imaging Routine Screening, , for anatomic survey Expected: 05/29/2024 (Approximate), Expires: 05/29/2025 [facility] Healthcare Comment on above: Expected: 05/29/2024 (Approximate), Expires: 05/29/2025 Start: 05-29-2024 End: 05-29-2024 Patient encounter procedure 05/29/2024 10:50 AM EDT Routine [facility] [address] [place] [phone] Carmen Abbasi DO [address] [place], [place] [phone] Arrived [facility] Comment on above: Arrived Start: 06-10-2023 Influenza vaccination Influenza Vacc ine (#1) [facility] CHLAMYDIA TRACHOMATI S (GENITO/STI) CHLAMYDIA TRACHOMATIS (GENITO/STI) Lab Routine Exposure to STD Ordered: 05/29/2024 [facility] Comment on above: Ordered: 05/29/2024 Cytology Cervical or vaginal smear or scraping study Pap Smear Pathology and Cytology Routine Well woman exam with routine gynecological exam Ordered: 05/29/2024 [facility] Work Phone: Comment on above: Ordered: 05/29/2024 Neisseria gonorrhoea e DNA [Presence] in Unspecified specimen by RADHA with probe detection Neisseria gonorrhea DNA probe, direct Lab Routine Exposure to STD Ordered: 05/29/2024 [facility] Comment on above: Ordered: 05/29/2024 SURESWAB(R) ADVANCED VAGINITIS PLUS, TMA SURESWAB(R) ADVANCED VAGINITIS PLUS, TMA Pathology and Cytology Routine Vaginal discharge Ordered: 05/29/2024 [facility] Comment on above: Ordered: 05/29/2024 Immunizations Immunization Date Immunization Notes Care Provider Agnieszka jackson 11-13-2019 tetanus toxoid, redu clifford diphtheria toxoid, and acellular pertussis vaccine, adsorbed Summer Davalos ACCESS MANAGER-SPEECH COACH Work Phone: [facility] 01-22-2014 diphtheria, tetanus toxoids and acellular pertussis vaccine, unspecified formulation Summer Davalos ACCESS MANAGER-SPEECH COACH Work Phone: [facility] 06-22-2004 diphtheria, tetanus toxoids and acellular pertussis vaccine Summer Davalos ACCESS MANAGER-SPEECH COACH Work Phone: [facility] 06-22-2004 haemophilus influenz ae type b vaccine, PRP-T conjugate Summer Davalos ACCESS MANAGER-SPEECH COACH Work Phone: [facility] 06-22-2004 pneumococcal conjuga te vaccine, 7 valent Summer Davalos ACCESS MANAGER-SPEECH COACH Work Phone: [facility] 12-20-2003 DTaP-hepatitis B and poliovirus vaccine Summer Davalos ACCESS MANAGER-SPEECH COACH Work Phone: [facility] 12-20-2003 haemophilus influenz ae type b vaccine, PRP-T conjugate Summer Davalos ACCESS MANAGER-SPEECH COACH Work Phone: [facility] 12-20-2003 measles, mumps and rubella virus vaccine Summer Davalos ACCESS MANAGER-SPEECH COACH Work Phone: [facility] 12-20-2003 varicella virus vaccine Summer Davalos ACCESS MANAGER-SPEECH COACH Work Phone: [facility] 11-11-2003 DTaP-hepatitis B and poliovirus vaccine Summer Davalos ACCESS MANAGER-SPEECH COACH Work Phone: [facility] 11-11-2003 haemophilus influenz ae type b vaccine, PRP-T conjugate Summer Davalos ACCESS MANAGER-SPEECH COACH Work Phone: [facility] 11-11-2003 pneumococcal conjuga te vaccine, 7 valent Summer Davalos ACCESS MANAGER-SPEECH COACH Work Phone: [facility] 05-31-2003 DTaP-hepatitis B and poliovirus vaccine Summer Davalos ACCESS MANAGER-SPEECH COACH Work Phone: [facility] 05-31-2003 haemophilus influenz ae type b vaccine, PRP-T conjugate Summer Davalos ACCESS MANAGER-SPEECH COACH Work Phone: [facility] 05-31-2003 pneumococcal conjuga te vaccine, 7 valent Summer Davalos ACCESS MANAGER-SPEECH COACH Work Phone: [facility] 2002 hepatitis B vaccine, pediatric or pediatric/adolescent dosage Summer Davalos ACCESS MANAGER-SPEECH COACH Work Phone: [facility] Payers Date Payer Category Payer Private Health Insurance [employer] [id number] 2024 Unknown [id number] 2022 Medicaid (Managed Care) [facility]ICA[facility] [id number] 2018 Medicaid [id number] 2002 Unknown [id number] 2.16.840.1.138633.3.579.2. 1286 2002 Unknown [id number] 2.16.840.1.377011.3.579.2. 1286 2002 Unknown [id number] 2.16.840.1.765652.3.579.2. 128 2002 Unknown [id number] 2.16.840.1.017759.3.579.2. 1286 2002 Unknown [id number] 2.16.840.1.587562.3.579.2. 128 2002 Unknown [id number] 2.16.840.1.150132.3.579.2. 1259 2002 Unknown [id number] 2.16.840.1.371340.3.579.2. 9 2002 Unknown [id number] 2.16.840.1.712365.3.579.2. 1259 2002 Unknown [id number] 2.16.840.1.352482.3.579.2. 1259 2002 Unknown [id number] 2.16.840.1.816263.3.579.2. 1259 2002 Unknown [id number] 2.16.840.1.578574.3.579.2. 1259 2002 Unknown [id number] 2.16.840.1.397933.3.579.2. 1259 2002 Unknown [id number] 2.16.840.1.867218.3.579.2. 1259 2002 Unknown [id number] 2.16.840.1.115070.3.579.2. 1259 2002 Unknown [id number] 2.16.840.1.295019.3.579.2. 1259 1982 Unknown [id number] 2.16.840.1.418600.3.579.2. 593 1982 Unknown [id number] 2.16.840.1.040058.3.579.2. 593 1982 Unknown [id number] 2.16.840.1.034600.3.579.2. 593 1959 Unknown [id number] 1959 Unknown [id number] Social History Date Type Detail Facility Start: 05-19-2023 Tobacco smoking status UTIS Tobacco smoking consumption unknown [facility] Start: 05-19-2023 Tobacco use and exposure User of smokeless tobacco [facility] Start: 11-18-2023 End: 10-15-2024 Alcohol intake Lifetime non-drinker (finding) [facility] Start: 05-19-2023 End: 11-18-2023 History of Social function [facility] Start: 05-19-2023 End: 11-18-2023 Tobacco use panel [facility] Start: 2002 Sex Assigned At Not on file [facility] Start: 01-15-2023 Tobacco smoking status UTIS Never smoked tobacco [facility] Start: 01-15-2023 Tobacco use and exposure Smokeless tobacco non-user [facility] Frequency of Alcohol Consumption Never [facility] Start: 02-24-2024 [facility] Start: 2002 Sex assigned at Female [facility] Start: 01-23-2024 Gender identity Identifies as female gender (finding) [facility] Start: 01-23-2024 Sexual orientation Heterosexual (finding) [facility] Clinical Notes 12-20-2023 to 10-15-2024 Sara BloomANUP - 10/15/2024 2:40 PM MAEGAN Liang - 09/25/2024 1:50 PM Dale Baker LPN - 09/11/2024 10:30 AM MAEGAN Liang - 08/28/2024 10:30 AM MAEGAN Liang - 06/28/2024 3:00 PM EDT Note Date & Type Note Facility 10-15-2024 History of Present illness Narrative Reason for Appointment: Patient ID: Lorie Martinez is a 23 y.o. female who presents for Routine Visit Patient presents today for Return OB appointment. MEDICATIONS Current Outpatient Medications Medication Instructions Calcium Carbonate Antacid (TUMS PO) Oral citalopram (CELEXA) 20 mg, Oral, Daily MV-Min-Fe Fum-FA-DHA ( 1 PO) Oral ALLERGIES Allergies Allergen Reactions Ondansetron Rash PROBLEMS Active Ambulatory Problems Diagnosis Date Noted 32 weeks gestation of 09/25/2024 Anxiety with depression 09/25/2024 Third trimester 09/25/2024 Resolved Ambulatory Problems Diagnosis Date Noted No Resolved Ambulatory Problems Past Medical History: Diagnosis Date ADHD (attention deficit hyperactivity disorder) ([facility]) HISTORY PAST MEDICAL HISTORY SOCIAL HISTORY Past Medical History: Diagnosis Date ADHD (attention deficit hyperactivity disorder) ([facility]) Social History Tobacco Use Smoking [...] nursing note reviewed. Exam conducted with a strip picker present. Vitals: Estimated body mass index is 41.21 kg/m as calculated from the following: Height as of 08/01/23: 5' 7 . Weight as of this encounter: 263 lb 1.9 oz. BP: 114/72 No LMP recorded. Patient is . ASSESSMENT & PLAN ICD-10-CM 1. Third trimester Z34.93 POCT urinalysis dipstick manually resulted 2. 35 weeks gestation of Z3A.35 POCT urinalysis dipstick manually resulted Patient presents today for a routine obstetrics appointment. Patient is currently 35w3d with a Estimated Date of Delivery: 11/16/24. Patient to return to clinic in 1 week for routine OB appointment. Documented by Sara Bloom LPN on behalf of: Carmen Abbasi DO documented in this encounter [facility] 09-25-2024 History of Present illness Narrative Reason [...] Diagnosis Date ADHD (attention deficit hyperactivity disorder) ([facility]) HISTORY PAST MEDICAL HISTORY SOCIAL HISTORY Past Medical History: Diagnosis Date ADHD (attention deficit hyperactivity disorder) ([facility]) Social History Tobacco Use Smoking [...] nursing note reviewed. Exam conducted with a strip picker present. Vitals: Estimated body mass index is [...] of: MAEGAN Link documented in this encounter [facility] 09-11-2024 History of Present illness Narrative [...] Diagnosis Date ADHD (attention deficit hyperactivity disorder) ([facility]) HISTORY PAST MEDICAL HISTORY SOCIAL HISTORY Past [...] nursing note reviewed. Exam conducted with a strip picker present. Vitals: Estimated body mass index is [...] Carmen Abbasi DO documented in this encounter [facility] 08-28-2024 History of Present illness Narrative [...] Diagnosis Date ADHD (attention deficit hyperactivity disorder) ([facility]) HISTORY PAST MEDICAL HISTORY SOCIAL HISTORY Past Medical History: Diagnosis Date ADHD (attention deficit hyperactivity disorder) ([facility]) Social History Tobacco Use Smoking [...] of: MAEGAN Link documented in this encounter [facility] 07-30-2024 History of Present illness Narrative [...] Diagnosis Date ADHD (attention deficit hyperactivity disorder) ([facility]) HISTORY PAST MEDICAL HISTORY SOCIAL HISTORY Past Medical History: Diagnosis Date ADHD (attention deficit hyperactivity disorder) ([facility]) Social History Tobacco Use Smoking [...] nursing note reviewed. Exam conducted with a strip picker present. Vitals: Estimated body mass index is [...] she missed her appointment last week with [facility] in [place] and will reach out to there office to reschedule appointment. Documented by Sara Bloom LPN on behalf of: Carmen Abbasi DO documented in this encounter [facility] 06-28-2024 History of Present illness Narrative [...] Diagnosis Date ADHD (attention deficit hyperactivity disorder) ([facility]) Social History Tobacco Use Smoking [...] of: MAEGAN Link documented in this encounter [facility] 05-29-2024 History of Present illness Narrative [...] Diagnosis Date ADHD (attention deficit hyperactivity disorder) ([facility]) HISTORY PAST MEDICAL HISTORY SOCIAL HISTORY Past Medical History: Diagnosis Date ADHD (attention deficit hyperactivity disorder) ([facility]) Social History Tobacco Use Smoking [...] nursing note reviewed. Exam conducted with a strip picker present. Vitals: Estimated body mass index is [...] Carmen Abbasi DO documented in this encounter [facility] 12-20-2023 History of Present illness Narrative [...] in adult She has her contraception and brake tester care thru Dr Abbasi, she should continue [...] eat right as well JOHN Thrasher 12/20/23 1624 documented in this encounter [facility] Evaluation note Diagnosis PTSD (post-traumatic stress disorder)- Primary Posttraumatic stress disorder General counseling and advice for contraceptive management Class 2 obesity due to excess calories without serious comorbidity with body mass index (BMI) of 37.0 to 37.9 in adult documented in this encounter [facility]* Diagnosis 24 weeks gestation of Diabetes mellitus screening Screening for diabetes mellitus [facility] Diagnosis Third trimester state, incidental 28 weeks gestation of size inconsistent with dates [facility] Diagnosis Third trimester state, incidental 30 weeks gestation of [facility] Diagnosis 32 weeks gestation of Third trimester state, incidental Anxiety with depression [facility] Diagnosis 15 weeks gestation of Screening, , for anatomic survey Encounter for anatomic survey Well woman exam with routine gynecological exam Routine gynecological examination Exposure to STD Vaginal discharge Leukorrhea, not specified as infective [facility]* Diagnosis Second trimester state, incidental [facility] Diagnosis Third trimester state, incidental 35 weeks gestation of documented in this encounter [facility] HealthcareInstructionsNot on filedocumented in this encounter[facility] SystemReason for referral (narrative)* Consultation (Routine) - Pending Review Specialty Diagnoses / Procedures Referred By Vinny t Referred To Contact Diagnoses PTSD (post-traumatic stress disorder) Summer Davalos APRN-FNP [address] [place] [address] Referral ID Status Reason Start Date Expiration Date Visits Requested Visits Authorized [id number] Pending Review Patient Preference 12/20/2023 12/19/2024 1 1 [facility] Summary Purpose Family History No [...] DATE CREATED AUTHOR 01/27/2023 [facility] DATE CREATED AUTHOR AUTHOR'S ORGANIZ ATION 01/20/2024 [facility] DATE CREATED AUTHOR AUTHOR'S ORGANIZ ATION 02/20/2024 [facility] DATE CREATED AUTHOR AUTHOR'S ORGANIZ ATION 07/06/2024 [facility] DATE CREATED AUTHOR AUTHOR'S ORGANIZ ATION 10/21/2024 [facility] EPIC Care Teams (unrecognized sec tion and content) [employer] [employer] Relationship Specialty Start Date End Date Reid Jasmine MD PCP - General Family Medicine 08/01/23 [employer] Relationship Specialty Start Date End Date Summer Davalos APRN-FNP [address] [place] [address] PCP - General Internal Medicine 09/14/23 Reason [...] BE BASED ON THE PRIMARY CLINICAL RECORDS. [facility] [email or web address] [facility]. provides no warranty or guarantee of the accuracy or completeness of information in this document.
== END 2024-10-22 20:44 | disposition home or self-care (01) ==
LOC: LAB 20:43
PROVIDERS: PCP Nurse Practitioner Family; Visit Provider Obstetrics & Gynecology
DX: Z34.93 Encounter for supervision of normal pregnancy, unspecified, third trimester (principal)
CPT/HCPCS: 36415

== ENCOUNTER 2024-11-09 05:29 | Inpatient (IN) | payer OTHER, SELFPAY ==
[2024-11-09] VITALS (27 sets, daily range): BP systolic 70–120; BP diastolic 34–81; PULSE 60–94; TEMP 36.2–37.1; O2SAT 97–98
--- OUTSIDE RECORDS SUMMARY | 2024-11-09 05:33 | XMS_ITS | CCD ---
Author Organization [facility] Care Team Providers Care Adjunct Lecturer Name Role Phone NAMITA, DR BEAN Primary [...] Reid Jasmine MD Primary Care Provider Suzan HUMAN RESOURCES MANAGER MANUFACTURING-PUBLIC HEALTH OFFICER, Summer Gutiérrez Primary Care Provider SUMMER DAVALOS [...] Primary Care Provider Unavailabl e MARIA DE JESUS, ALYSSA Attending Unavailable MARIA DE JESUS, ALYSSA Attending Unavailable AYLEEN, CARMEN Attending Unavailable AYLEEN, CARMEN Attending Unavailable MARIA DE JESUS, ALYSSA Attending Unavailable AYLEEN, CARMEN Attending Unavailable MARIA DE JESUS, ALYSSA Attending Unavailable AYLEEN, CARMEN Attending Unavailable MARIA DE JESUS, ALYSSA Attending Unavailable AYLEEN, CARMEN Attending Unavailable AYLEEN, CARMEN Attending Unavailable Allergies Allergy Classification Reported Allergen(s) Allergy Type Date of Onset Reaction(s) Facility (1 source) Ondansetron Drug Allergy [facility] Repository (20 sources) Ondansetron Drug All[facility]2022 [facility] (4 sources) Ondansetron; Translations: [ONDANSETRON HCL] Drug Allergy 12-11-2022 [facility] Medications Current Medications Medication Drug Class(es) Dates Sig (Normalized) Sig (Original) Calcium Carbonate Antacid (TUMS PO) (20 sources) Calcium Carbonat e Antacid (TUMS PO) Take by mouth Active citalopram 20 mg oral tablet (13 sources) Serotonin Reuptake Inhibitor Start: 09-25-2024 End: [...] 0 Active MV-Min-Fe Fum-FA-DHA ( 1 PO) (20 sources) MV-Min- Fe Fum-FA-DHA ( 1 PO) Take by mouth Active Completed/Discontinued Medications Medication Drug Class(es) Dates Sig (Normalized) Sig (Original) Progesterone (8 sources) Progesterone Start: 04-05-2024 End: 06-28-2024 Progesterone Micronized (progesterone, bulk,) powder 04/05/2024 06/28/2024 Discontinued Start: 04-05-2024 Progesterone M icronized (progesterone, bulk,) powder 04/05/2024 Active Problems Active Problems Problem Classification Problem Date Documented Date Episodic/Chronic Anxiety disorders (17 sources) Posttraumatic stress disorder; Translations: [Post-traumatic stress [...] 12-20-2023 Chronic Other and delivery including normal (20 sources) Third trimester ; Translations: [Encounter for [...] of ] 09-11-2024 Episodic Residual codes; unclassified (15 sources) Gestation period, 32 weeks; Translations: [32 weeks gestation of ] Onset: 09-25-2024 09-25-2024 Episodic Residual codes; unclassified (2 sources) Gestation period, 35 weeks; Translations: [35 weeks gestation of ] 10-15-2024 Episodic Residual codes; unclassified (9 sources) Gestation period, 36 weeks; Translations: [36 weeks gestation of ] Onset: 10-22-2024 10-22-2024 Episodic Residual codes; unclassified (2 sources) Gestation period, 37 weeks; Translations: [37 weeks gestation of ] 10-31-2024 Episodic Skin and subcutaneous tissue infections (1 [...] Range Facility Urinalysis macro (dipstick) panel (U)on 10-31-2024 Bilirubin, UA Negative Negative - 4(70) +++ mg/dL [facility] Blood, UA Negative Negative - 50 Jaguar/mcL [facility] Clarity, UA Clear [facility] Color, UA Yellow [facility] Glucose, UA Negative Negative - 1999(110) ++++ mg/dL [facility] Interpretation and review of laboratory results Abnormal [facility] Ketones, UA Negative Negative - 160(16) ++++ mg/dL [facility] Leukocytes, UA Trace Negative - 500+++ Lizeth/mcL [facility] Nitrite, UA Negative Negative - Positive [facility] pH, UA 6.5 5 - 9 [facility] Protein, UA Trace Negative - 1999(20) ++++ mg/dL [facility] Spec Grav, UA 1.03 1 - 1.03 [facility] Urobilinogen, UA 0.2 0.2 - 12 mg/dL [facility] ALL MISCELLANEOUS TESTon MISCELLANEOUS TEST COMMENT . [facility] Comment on above: Test Ordered: [id number] Strep Gp B Culture+Rflx Strep Gp B Culture+Rflx Negative CB Reference Range: Negative Centers for Disease Control and Prevention (CDC) and [place] [employer] of [employer]stetric[employer] and Gynecologists (ACOG) guidelines for prevention of group B streptococcal (GBS) disease specify co-collection of a vaginal and rectal swab specimen to maximize sensitivity of GBS detection. Per the CDC and ACOG, swabbing both the lower vagina and rectum substantially increases the yield of detection compared with sampling the vagina alone. Penicillin G, ampicillin, or cefazolin are indicated for intrapartum prophylaxis of GBS colonization. Reflex susceptibility testing should be performed prior to use of clindamycin only on GBS isolates from penicillin- allergic women who are considered a high risk for anaphylaxis. Treatment with vancomycin without additional testing is warranted if resistance to clindamycin is noted. Performed at: - [facility] [id number] Machine Stonecutter: Ender Win PhD, Phone: [phone] GROUP B STREP 240765 Group B Streptococcus Colonization Detection Culture With Re [facility] Urinalysis macro (dipstick) panel (U)on 10-22-2024 Bilirubin, UA Negative Negative - 4(70) +++ mg/dL [facility] Blood, UA Negative Negative - 50 Jaguar/mcL [facility] Clarity, UA Clear [facility] Color, UA Yellow [facility] Glucose, UA Negative Negative - 1999(110) ++++ mg/dL [facility] Interpretation and review of laboratory results Abnormal [facility] Ketones, UA Negative Negative - 160(16) ++++ mg/dL [facility] Leukocytes, UA Positive Negative - 500+++ Lizeth/mcL [facility] Comment on above: small Nitrite, UA Negative Negative - Positive [facility] pH, UA 8.5 5 - 9 [facility] Protein, UA Positive Negative - 1999(20) ++++ mg/dL [facility] Comment on above: 30 Spec Grav, UA 1.02 1 - 1.03 [facility] Urobilinogen, UA 0.2 0.2 - 12 mg/dL [facility] Urinalysis macro (dipstick) panel (U)on 10-15-2024 Bilirubin, UA Negative Negative - 4(70) +++ mg/dL [facility] Blood, UA Negative Negative - 50 Jaguar/mcL [facility] Clarity, UA Clear [facility] Color, UA Yellow [facility] Glucose, UA Negative Negative - 1999(110) ++++ mg/dL [facility] Interpretation and review of laboratory results Normal [facility] Ketones, UA Negative Negative - 160(16) ++++ mg/dL [facility] Leukocytes, UA Negative Negative - 500+++ Lizeth/mcL [facility] Nitrite, UA Negative Negative - Positive [facility] pH, UA 7 5 - 9 [facility] Protein, UA Negative Negative - 1999(20) ++++ mg/dL [facility] Spec Grav, UA 1.02 1 - 1.03 [facility] Urobilinogen, UA 1.0 0.2 - 12 mg/dL [facility] Urinalysis macro (dipstick) panel (U)on 09-25-2024 Bilirubin, UA Negative Negative - 4(70) +++ mg/dL [facility] Blood, UA Negative Negative - 50 Jaguar/mcL [facility] Clarity, UA Clear [facility] Color, UA Yellow [facility] Glucose, UA Negative Negative - 1999(110) ++++ mg/dL [facility] Interpretation and review of laboratory results Normal [facility] Ketones, UA Negative Negative - 160(16) ++++ mg/dL [facility] Leukocytes, UA Negative Negative - 500+++ Lizeth/mcL [facility] Nitrite, UA Negative Negative - Positive [facility] pH, UA 7 5 - 9 [facility] Protein, UA Negative Negative - 1999(20) ++++ mg/dL [facility] Spec Grav, UA 1.01 1 - 1.03 [facility] Urobilinogen, UA 0.2 0.2 - 12 mg/dL [facility] Urinalysis macro (dipstick) panel (U)on 09-11-2024 Bilirubin, UA Negative Negative - 4(70) +++ mg/dL [facility] Blood, UA Negative Negative - 50 Jaguar/mcL [facility] Clarity, UA Clear [facility] Color, UA Yellow [facility] Glucose, UA Negative Negative - 1999(110) ++++ mg/dL [facility] Interpretation and review of laboratory results Normal [facility] Ketones, UA Negative Negative - 160(16) ++++ mg/dL [facility] Leukocytes, UA Negative Negative - 500+++ Lizeth/mcL [facility] Nitrite, UA Negative Negative - Positive [facility] pH, UA 5.5 5 - 9 [facility] Protein, UA Negative Negative - 1999(20) ++++ mg/dL [facility] Spec Grav, UA 1.02 1 - 1.03 [facility] Urobilinogen, UA 1.0 0.2 - 12 mg/dL [facility] Urinalysis macro (dipstick) panel (U)on 08-28-2024 Bilirubin, UA Negative Negative - 4(70) +++ mg/dL [facility] Blood, UA Negative Negative - 50 Jaguar/mcL [facility] Clarity, UA Clear [facility] Color, UA Light Yellow [facility] Glucose, UA Negative Negative - 1999(110) ++++ mg/dL [facility] Interpretation and review of laboratory results Normal [facility] Ketones, UA Negative Negative - 160(16) ++++ mg/dL [facility] Leukocytes, UA Negative Negative - 500+++ Lizeth/mcL [facility] Nitrite, UA Negative Negative - Positive [facility] pH, UA 5.5 5 - 9 [facility] Protein, UA Negative Negative - 1999(20) ++++ mg/dL [facility] Spec Grav, UA 1.015 1 - 1.03 [facility] Urobilinogen, UA 1.0 0.2 - 12 mg/dL [facility] Urinalysis macro (dipstick) panel (U)on 07-30-2024 Bilirubin, UA Negative Negative - 4(70) +++ mg/dL [facility] Blood, UA Negative Negative - 50 Jaguar/mcL [facility] Clarity, UA Clear [facility] Color, UA Yellow [facility] Glucose, UA Negative Negative - 1999(110) ++++ mg/dL [facility] Interpretation and review of laboratory results Normal [facility] Ketones, UA Negative Negative - 160(16) ++++ mg/dL [facility] Leukocytes, UA Negative Negative - 500+++ Lizeth/mcL [facility] Nitrite, UA Negative Negative - Positive [facility] pH, UA 6.5 5 - 9 [facility] Protein, UA Negative Negative - 1999(20) ++++ mg/dL [facility] Spec Grav, UA 1.015 1 - 1.03 [facility] Urobilinogen, UA 0.2 0.2 - 12 mg/dL [facility] Urinalysis macro (dipstick) panel (U)on 06-28-2024 Bilirubin, UA Positive Negative - 4(70) +++ mg/dL [facility] Comment on above: small Blood, UA Negative Negative - 50 Jaguar/mcL [facility] Clarity, UA Clear [facility] Color, UA Yellow [facility] Glucose, UA Negative Negative - 1999(110) ++++ mg/dL [facility] Interpretation and review of laboratory results Abnormal [facility] Ketones, UA Positive Negative - 160(16) ++++ mg/dL [facility] Comment on above: 15 Leukocytes, UA Negative Negative - 500+++ Lizeth/mcL [facility] Nitrite, UA Negative Negative - Positive [facility] pH, UA 5.5 5 - 9 [facility] Protein, UA Trace Negative - 1999(20) ++++ mg/dL [facility] Spec Grav, UA 1.030 1 - 1.03 [facility] Urobilinogen, UA 0.2 0.2 - 12 mg/dL [facility] AFP, SERUM, OPEN SPINA BIFID Aon 05-31-2024 AFP MOM 1.17 . [facility] AFP VALUE 27.6 ng/mL . [facility] COMMENT: Comment . [facility] Comment on above: Vandana Nina , Ph.D., [facility] Director References: Available Upon Request. Multiples Of Median Cutoffs For AFP Elevations Rodriguez 2.5 Black 2.8 IDD 2.0 Twins 4.5 Abbreviation Definitions IDD - Insulin Dep Diabetes OSBR - Open Spina Bifida Risk For further inquiries contact [facility] at [phone]. This test was developed and its performance characteristics determined by [employer]. It has not been cleared or approved by the Food and Drug Administration. Performed at: [facility] [address] [facility] [address], [place], [place] [id number] Machine Stonecutter: Prashant Phoenix [facility], Phone: [phone] GEST. AGE ON COLLECTION DATE 15.6 . weeks [facility] GESTAT. AGE BASED ON Ultrasound . [facility] Comment on above: 15.6 on 05/29/2024 Recalculations are not recommended when gestational dating by LMP and ultrasound are within 10 days. INSULIN DEP DIABETES No . [facility] INTERPRETATION Comment . [facility] Comment on above: Interpretation: Scre en Negative [...] Customer Services to discuss available options. The [place] [employer] recommends amniocentesis be offered to women age 35 and older. [age] [facility] MULTIPLE GESTATION No . [facility] OSBR RISK 1 IN 7137 . [facility] RACE . [facility] RESULTS Report . [facility] TEST RESULTS: Negative . [facility] WEIGHT 249 . lbs [facility] N N ULTRASOUND [id number] 4 15 N 1 Y 249 N N N N N White/ [facility] URETHRITIS/DISCHARGE PLUS VA GINITIS (HTRX)on 05-30-2024 ATOPOBIUM VAGINAE 0.000 [facility] ATOPOBIUM VAGINAE Not detected [facility] BVAB 2,3 (BACTERIAL VAGINOSIS ASSOCIATED BACTERIA 2, 3); MOBILUNCUS SPP 0.000 [facility] BVAB 2,3 (BACTERIAL VAGINOSIS ASSOCIATED BACTERIA 2, 3); MOBILUNCUS SPP Not detected [facility] JENNY ALBICANS, PARAPSILOSIS, TROPICALIS 0.000 [facility] JENNY ALBICANS, PARAPSILOSIS, TROPICALIS Not detected [facility] JENNY GLABRATA 0.000 [facility] JENNY GLABRATA Not detected [facility] JENNY KRUSEI 0.000 [facility] JENNY KRUSEI Not detected [facility] CHLAMYDIA TRACHOMATIS 0.000 [facility] CHLAMYDIA TRACHOMATIS Not detected [facility] GARDNERELLA VAGINALIS 0.000 [facility] GARDNERELLA VAGINALIS Not detected [facility] MEGASPHAERA (TYPES 1, 2) 0.000 [facility] MEGASPHAERA (TYPES 1, 2) Not detected [facility] MYCOPLASMA GENITALIUM 0.000 [facility] MYCOPLASMA GENITALIUM Not detected [facility] NEISSERIA GONORRHOEAE 0.000 [facility] NEISSERIA GONORRHOEAE Not detected [facility] TRICHOMONAS VAGINALIS 0.000 [facility] TRICHOMONAS VAGINALIS Not detected [facility] Cytology Cervical or vaginal smear or scraping studyon 05-29-2024 [facility] Urinalysis macro (dipstick) panel (U)on 05-29-2024 Bilirubin, UA Negative Negative - 4(70) +++ mg/dL [facility] Blood, UA Negative Negative - 50 Jaguar/mcL [facility] Clarity, UA Clear [facility] Color, UA Karen [facility] Glucose, UA Negative Negative - 1999(110) ++++ mg/dL [facility] Interpretation and review of laboratory results Normal [facility] Ketones, UA Negative Negative - 160(16) ++++ mg/dL [facility] Leukocytes, UA Negative Negative - 500+++ Lizeth/mcL [facility] Nitrite, UA Negative Negative - Positive [facility] pH, UA 7.0 5 - 9 [facility] Protein, UA Negative Negative - 1999(20) ++++ mg/dL [facility] Spec Grav, UA 1.010 1 - 1.03 [facility] Urobilinogen, UA 0.2 0.2 - 12 mg/dL [facility] CBC AND AUTO DIFFon 02-17-20 24 ABSOLUTE BASOPHIL 0.2 X10E9/L Normal 0.0-0.2 [facility] Comment on above: Performed By: #### C AMBER UGALDE, 2275- #### [facility] ([id number]) [address], [address] [place] [address] ABSOLUTE NEUTROPHIL 3.1 X10E9/L Normal 1.5-6.6 [facility] Comment on above: Performed By: #### C AMBER UGALDE, 2275- #### [facility] ([id number]) [address], [address] [place] [address] Basophils/100 WBC (Bld) 3.0 % Normal [facility] Comment on above: Performed By: #### AMBER Murray BCA, 2276-01 #### [facility] ([id number]) [address] [place] [address] Eosinophils (Bld) [#/Vol] 0.2 10*3/uL Normal 0.0-0.4 [facility] Comment on above: Performed By: #### C BCA, FEPR, 2276-01 #### [facility] ([id number]) [address], [facility] [address] [place] [address] Eosinophils/100 WBC (Bld) 3.4 % Normal [facility] Comment on above: Performed By: #### C BCA, FEPR, 2276-01 #### [facility] ([id number]) [address] [address] [place] [address] Erythrocyte distribution width (RBC) [Ratio] 13.3 % Normal 11.5-15.0 [facility] Comment on above: Performed By: #### C BCA, FEPR, 2276-01 #### [facility] ([id number]) [address] [address] [place] [address] Hematocrit (Bld) [Volume fraction] 40.3 % Normal 35-47 [facility] Comment on above: Performed By: #### Terri BCA, FEPR, 2276-01 #### [facility] ([id number]) [address] [address] [place] [address] Hemoglobin (Bld) [Mass/Vol] 13.8 g/dL Normal 11.7-15.5 [facility] Comment on above: Performed By: #### C BCA, FEPR, 4 #### [facility] ([id number]) [address] [address] [place] [address] Lymphocytes (Bld) [#/Vol] 2.1 10*3/uL Normal 1.0-3.5 [facility] Comment on above: Performed By: #### Terri BCA, FEPR, 2276-01 #### [facility] ([id number]) [address], [address] [place] [address] Lymphocytes/100 WBC (Bld) 35.1 % Normal [facility] Comment on above: Performed By: #### C AFTAB, FEPR, 2276-01 #### [facility] ([id number]) [address], [facility] [address] [place] [address] MCH (RBC) [Entitic mass] 29.0 pg Normal 27-34 [facility] Comment on above: Performed By: #### C AFTAB, FEPR, 2276-01 #### [facility] ([id number]) [address], [facility] [address] [place] [address] MCHC (RBC) [Mass/Vol] 34.2 g/dL Normal 32-36 [facility] Comment on above: Performed By: #### Terri UGALDE, FEPR, 2276-01 #### [facility] ([id number]) [address], [facility] [address] [place] [address] MCV (RBC) [Entitic vol] 85 fL Normal 80-100 [facility] Comment on above: Performed By: #### Terri UGALDE, FEPR, 2276-01 #### [facility] ([id number]) [address] [address] [place] [address] Monocytes (Bld) [#/Vol] 0.5 10*3/uL Normal 0-0.9 [facility] Comment on above: Performed By: #### C AFTAB, FEPR, 2276-01 #### [facility] ([id number]) [address] [address] [place] [address] Monocytes/100 WBC (Bld) 7.5 % Normal [facility] Comment on above: Performed By: #### Terri UGALDE, FEPR, 2276-01 #### [facility] ([id number]) [address], [address] [place] [address] Neutrophils/100 WBC (Bld) 51.0 % Normal [facility] Comment on above: Performed By: #### C BCA, FEPR, 2275-4 #### [facility] ([id number]) [address], [address] [place] [address] Platelet mean volume (Bld) [Entitic vol] 8.8 fL Normal 7-12 [facility] Comment on above: Performed By: #### C BCA, FEPR, 2275-4 #### [facility] ([id number]) [address], [facility] [address] [place] [address] Platelets (Bld) [#/Vol] 272 10*3/uL Normal 150-450 [facility] Comment on above: Performed By: #### C BCA, FEPR, 2275-4 #### [facility] ([id number]) [address], [address] [place] [address] RBC COUNT 4.75 X10E12/L Normal 3.80-5.20 [facility] Comment on above: Performed By: #### C BCA, FEPR, 2275-4 #### [facility] ([id number]) [address], [facility] [address] [place] [address] WBC (Bld) [#/Vol] 6.1 10*3/uL Normal 4.0-11.0 [facility] Comment on above: Performed By: #### C BCA, FEPR, 2275-4 #### [facility] ([id number]) [address], [address] [place] [address] FERRITINon 02-17-2024 Ferritin [Mass/Vol] 50 ng/mL Normal 11-307 [facility] Comment on above: Performed By: #### C BCA, FEPR, 2275-4 #### [facility] ([id number]) [address], [address] [place] [address] IRON PROFILEon 02-17-2024 Iron [Mass/Vol] 59 ug/dL Normal 50-170 [facility] Comment on above: Performed By: #### C BCA, FEPR, 2276-4 #### [facility] ([id number]) [address], [address] [place] [address] IRON BINDING 384 ug/dL Normal 250-425 [facility] Comment on above: Performed By: #### C BCA, FEPR, 2276-4 #### [facility] ([id number]) [address], [address] [place] [address] IRON SATURATION 15 % SATURATION Normal 15-50 [facility] Comment on above: Performed By: #### C BCA, FEPR, 2276-4 #### [facility] ([id number]) [address], [address] [place] [address] HCG ( test) Ql (U)o n 01-19-2024 Beta HCG ( test) Ql (U) Negative Normal NEG [facility] Comment on above: Performed By: #### 2 106-3 #### [facility] ([id number]) [address] [place] [address] URN MACROSCOPIC NURon 2023 BILIRUBIN SUDHIR Negative Normal NEG [facility] Comment on above: Performed By: #### N UM #### [facility] ([id number]) [address] [place] [address] BLOOD/HGB SUDHIR Trace Abnormal NEG [facility] Comment on above: Performed By: #### N UM #### [facility] ([id number]) [address] [place] [address] GLUCOSE SUDHIR Negative Normal NEG [facility] Comment on above: Performed By: #### N UM #### [facility] ([id number]) [address] [place] [address] KETONES SUDHIR Negative Normal NEG [facility] Comment on above: Performed By: #### N UM #### [facility] ([id number]) [address] [place] [address] LEUKOCYTE ESTERASE SUDHIR Negative Normal NEG [facility] Comment on above: Performed By: #### N UM #### [facility] ([id number]) [address] [place] [address] NITRITE SUDHIR Negative Normal NEG [facility] Comment on above: Performed By: #### N UM #### [facility] ([id number]) [address] [place] [address] PH SUDHIR 6.0 Normal 5.0-8.5 [facility] Comment on above: Performed By: #### N UM #### [facility] ([id number]) [address] [place] [address] PROTEIN SUDHIR Negative Normal NEG [facility] Comment on above: Performed By: #### N UM #### [facility] ([id number]) [address] [place] [address] SPECIFIC GRAVITY SUDHIR >=1.030 Normal 1.003-1.035 [facility] Comment on above: Performed By: #### N UM #### [facility] ([id number]) [address] [place] [address] UROBILINOGEN SUDHIR 0.2 eu/dL Normal <1.1 [facility] Comment on above: Performed By: #### N UM #### [facility] ([id number]) [address] [place] [address] TBH PREG QUANT HCGon 024 HCG QUANTITATIVE <1 mIU/mL [facility] Comment on above: 5-50 0.2-1 WEEK 50-500 1-2 WEEKS 100-5,000 2-3 WEEKS 500-10,000 3-4 WEEKS 1,000-50,000 4-5 WEEKS 10,000-100,000 5-6 WEEKS 15,000-200,000 6-8 WEEKS 10,000-100,000 2-3 MONTHS [facility] CBC AUTO DIFFon 01-19-2023 BASO # 0.1 103/ul Normal 0.0-0.1 [facility] Comment on above: Performed By: #### C BC #### [facility] [address] [place] [address] Dr. Kristie Marrero Basophils/100 WBC (Bld) 0.5 % Normal 0.2-2.0 [facility] Comment on above: Performed By: #### C BC #### [facility] [address] [place] [address] Dr. Kristie Marrero EO # 0.2 103/ul Normal 0.0-0.7 [facility] Comment on above: Performed By: #### C BC #### [facility] [address] [place] [address] Dr. Kristie Marrero Eosinophils/100 WBC (Bld) 2.0 % Normal 0.9-7.0 [facility] Comment on above: Performed By: #### C BC #### [facility] [address] [place] [address] Dr. Kristie Marrero Erythrocyte distribution width (RBC) [Ratio] 12.0 % Normal 11.0-15.0 [facility] Comment on above: Performed By: #### C BC #### [facility] [address] [place] [address] Dr. Kristie Marrero Hematocrit (Bld) [Volume fraction] 38.0 % Normal 36.0-48.0 [facility] Comment on above: Performed By: #### C BC #### [facility] [address] [place] [address] Dr. Kristie Marrero Hemoglobin (Bld) [Mass/Vol] 13.3 g/dL Normal 12.0-16.0 [facility] Comment on above: Performed By: #### C BC #### [facility] [address] [place] [address] Dr. Kristie Marrero IG # 0.04 10e3/ul Critically high 0.00-0.03 [facility] Comment on above: Performed By: #### C BC #### [facility] [address] [place] [address] Dr. Kristie Marrero IG % 0.4 % Normal 0.0-0.5 [facility] Comment on above: Performed By: #### C BC #### [facility] [address] [place] [address] Dr. Kristie Marrero LYMPH # 1.3 103/ul Normal 1.2-3.8 [facility] Comment on above: Performed By: #### C BC #### [facility] [address] [place] [address] Dr. Kristie Marrero Lymphocytes/100 WBC (Bld) 12.3 % Critically low 20.5-60.0 [facility] Comment on above: Performed By: #### C BC #### [facility] [address] [place] [address] Dr. Kristie Marrero MANUAL DIFF REQ NO Normal [facility] Comment on above: Performed By: #### C BC #### [facility] [address] [place] [address] Dr. Kristie Marrero MCH (RBC) [Entitic mass] 29.2 pg Normal 26.7-34.0 [facility] Comment on above: Performed By: #### C BC #### [facility] [address] [place] [address] Dr. Kristie Marrero MCHC (RBC) [Mass/Vol] 35.0 g/dL Normal 29.9-35.2 [facility] Comment on above: Performed By: #### C BC #### [facility] [address] [place] [address] Dr. Kristie Marrero MCV (RBC) [Entitic vol] 83.3 fL Normal 81.0-99.0 [facility] Comment on above: Performed By: #### C BC #### [facility] [address] [place] [address] Dr. Kristie Marrero MONO # 0.7 103/ul Normal 0.3-0.8 [facility] Comment on above: Performed By: #### C BC #### [facility] [address] [place] [address] Dr. Kristie Marrero Monocytes/100 WBC (Bld) 7.0 % Normal 1.7-12.0 [facility] Comment on above: Performed By: #### C BC #### [facility] [address] [address] [address] Kristie Marrero NEUT # 8.2 103/ul Critically high 1.4-6.5 [facility] Comment on above: Performed By: #### C BC #### [facility] [address] [place] [address] Dr. Kristie Marrero Neutrophils/100 WBC (Bld) 77.8 % Critically high 43.0-75.0 [facility] Comment on above: Performed By: #### C BC #### [facility] [address] [place] [address] Dr. Kristie Marrero Platelet mean volume (Bld) [Entitic vol] 9.5 fL Normal 9.5-13.5 [facility] Comment on above: Performed By: #### C BC #### [facility] [address] [place] [address] Dr. Kristie Marrero PLT 265 103/ul Normal 150-450 [facility] Comment on above: Performed By: #### C BC #### [facility] [address] [place] [address] Dr. Kristie Marrero RBC 4.56 106/ul Normal 4.20-5.40 [facility] Comment on above: Performed By: #### C BC #### [facility] [address] [place] [address] Dr. Kristie Marrero WBC 10.5 103/ul Normal 4.0-11.0 [facility] Comment on above: Performed By: #### C BC #### [facility] [address] [place] [address] Dr. Kristie Marrero PREG HCG QUALon 01-19-2023 , QUAL Negative Normal NEGATIVE [facility] Comment on above: Performed By: #### P REG #### [facility] [address] [place] [address] Dr. Kristie Marrero CHLAMYDIA/GONOCOCCUS RADHA (SW AB/URINE/PAPon 11-19-2022 Chlamydia trachomatis, RADHA Negative Normal Negative [facility] Comment on above: Performed By: #### C T/NGNA #### [facility] [address] [place] [address] Dr. Kristie Marrero Neisseria gonorrhoeae, RADHA Negative Normal Negative [facility] Comment on above: Performed By: #### C T/NGNA #### [facility] [address] [place] [address] Dr. Kristie Marrero VAGINITIS/VAGINOSIS DNA PROB Syed 11-18-2022 Jenny species Negative Normal Negative [facility] Comment on above: Performed By: #### V AGINT #### [facility] [address] [place] [address] Dr. Kristie Marrero Gardnerella vaginalis Positive Abnormal Negative [facility] Comment on above: Performed By: #### V AGINT #### [facility] [address] [place] [address] Dr. Kristie Marrero Trichomonas vaginalis Negative Normal Negative [facility] Comment on above: Performed By: #### V AGINT #### [facility] [address] [place] [address] Dr. Kristie Marrero [facility]on 04-10 SARS-CoV-2 (COVID-19) RNA RADHA+probe Ql (Unsp [...] for this test is supported by the Annual Campaign Manager of Health and Human Service's (HHS's) [...] longer be used). Performed By: #### C [facility] #### [facility] [address] [address] [address] Kristie Marrero Vital Signs Date Time Vital Sign Value Performing Clinician Facility 10-31-2024 13:20-0500 Body mass index (BMI) [Ratio] 41 kg/m2 Alyssa ISSA Work Phone: [facility] 10-31-2024 13:20-0500 Body weight 118.75 kg Alyssa ISSA Work Phone: [facility] 10-31-2024 13:20-0500 Diastolic blood pressure 76 mm[Hg] Alyssa ISSA Work Phone: [facility] 10-31-2024 13:20-0500 Systolic blood pressure 124 mm[Hg] Alyssa ISSA Work Phone: [facility] 10-22-2024 14:14-0500 Body mass index (BMI) [Ratio] 41.25 kg/m2 Carmen Ayleen DO Work Phone: [facility] 10-22-2024 14:14-0500 Body weight 119.48 kg Carmen Ayleen DO Work Phone: [facility] 10-22-2024 14:14-0500 Diastolic blood pressure 60 mm[Hg] Carmen Ayleen DO Work Phone: [facility] 10-22-2024 14:14-0500 Systolic blood pressure 100 mm[Hg] Carmen Ayleen DO Work Phone: [facility] 10-15-2024 14:53-0500 Body mass index (BMI) [Ratio] 41.21 kg/m2 Carmen Ayleen DO Work Phone: [facility] 10-15-2024 14:53-0500 Body weight 119.35 kg Carmen Ayleen DO Work Phone: [facility] 10-15-2024 14:53-0500 Diastolic blood pressure 72 mm[Hg] Carmen Ayleen DO Work Phone: [facility] 10-15-2024 14:53-0500 Systolic blood pressure 114 mm[Hg] Carmen Ayleen DO Work Phone: [facility] 09-25-2024 14:03-0500 Body mass index (BMI) [Ratio] 40.43 kg/m2 Alyssa Iroquois PA Work Phone: [facility] 09-25-2024 14:03-0500 Body weight 117.08 kg Alyssa Iroquois PA Work Phone: [facility] 09-25-2024 14:03-0500 Diastolic blood pressure 68 mm[Hg] Alyssa Iroquois PA Work Phone: [facility] 09-25-2024 14:03-0500 Systolic blood pressure 118 mm[Hg] Alyssa Maria De Jesus PA Work Phone: [facility] 09-11-2024 10:46-0500 Body mass index (BMI) [Ratio] 40.53 kg/m2 Carmen Ayleen DO Work Phone: [facility] 09-11-2024 10:46-0500 Body weight 117.39 kg Carmen Ayleen DO Work Phone: [facility] 09-11-2024 10:46-0500 Diastolic blood pressure 70 mm[Hg] Carmen Ayleen DO Work Phone: [facility] 09-11-2024 10:46-0500 Systolic blood pressure 112 mm[Hg] Carmen Ayleen DO Work Phone: [facility] 08-28-2024 10:28-0500 Body mass index (BMI) [Ratio] 41.16 kg/m2 Alyssa Iroquois PA Work Phone: [facility] 08-28-2024 10:28-0500 Body weight 119.2 kg Alyssa Maria De Jesus PA Work Phone: [facility] 08-28-2024 10:28-0500 Diastolic blood pressure 72 mm[Hg] Alyssa Iroquois PA Work Phone: [facility] 08-28-2024 10:28-0500 Systolic blood pressure 114 mm[Hg] Alyssa Pretty PA Work Phone: [facility] 07-30-2024 09:39-0400 Body mass index (BMI) [Ratio] 40.41 kg/m2 Carmen Ayleen DO Work Phone: [facility] 07-30-2024 09:39-0400 Body weight 117.03 kg Carmen Ayleen DO Work Phone: [facility] 07-30-2024 09:39-0400 Diastolic blood pressure 68 mm[Hg] Carmen Ayleen DO Work Phone: [facility] 07-30-2024 09:39-0400 Systolic blood pressure 112 mm[Hg] Carmen Ayleen DO Work Phone: [facility] 06-28-2024 15:06-0400 Body mass index (BMI) [Ratio] 39.39 kg/m2 Alyssa ISSA Work Phone: [facility] 06-28-2024 15:06-0400 Body weight 114.08 kg Alyssa Pretty PA Work Phone: [facility] 06-28-2024 15:06-0400 Diastolic blood pressure 78 mm[Hg] Alyssa Pretty PA Work Phone: [facility] 06-28-2024 15:06-0400 Systolic blood pressure 110 mm[Hg] Alyssa Pretty PA Work Phone: [facility] 05-29-2024 11:14-0400 Body mass index (BMI) [Ratio] 39 kg/m2 Carmen Ayleen DO Work Phone: [facility] 05-29-2024 11:14-0400 Body weight 112.95 kg Carmen Ayleen DO Work Phone: [facility] 05-29-2024 11:14-0400 Diastolic blood pressure 60 mm[Hg] Carmen Ayleen DO Work Phone: [facility] 05-29-2024 11:14-0400 Systolic blood pressure 120 mm[Hg] Carmen Ayleen DO Work Phone: [facility] 12-20-2023 15:22-0400 Body height 170.2 cm Summer Davalos HUMAN RESOURCES MANAGER MANUFACTURING-PUBLIC HEALTH OFFICER Work Phone: [facility] [employer] 12-20-2023 15:22-0400 Body mass index (BMI) [Ratio] 38.28 kg/m2 Summer Davalos HUMAN RESOURCES MANAGER MANUFACTURING-PUBLIC HEALTH OFFICER Work Phone: [facility] [employer] 12-20-2023 15:22-0400 Body temperature 98.29 [degF] Summer Davalos HUMAN RESOURCES MANAGER MANUFACTURING-PUBLIC HEALTH OFFICER Work Phone: [facility] [employer] 12-20-2023 15:22-0400 Body weight 110.86 kg Summer Davalos HUMAN RESOURCES MANAGER MANUFACTURING-PUBLIC HEALTH OFFICER Work Phone: [facility] [employer] 12-20-2023 15:22-0400 Diastolic blood pressure 80 mm[Hg] Summer Davalos HUMAN RESOURCES MANAGER MANUFACTURING-PUBLIC HEALTH OFFICER Work Phone: [facility] [employer] 12-20-2023 15:22-0400 Heart rate 82 /min Summer Davalos HUMAN RESOURCES MANAGER MANUFACTURING-PUBLIC HEALTH OFFICER Work Phone: [facility] [employer] 12-20-2023 15:22-0400 Respiratory rate 18 /min Summer Davalos HUMAN RESOURCES MANAGER MANUFACTURING-PUBLIC HEALTH OFFICER Work Phone: [facility] [employer] 12-20-2023 15:22-0400 SaO2% (BldA) [Mass fraction] 97 % Summer Davalos HUMAN RESOURCES MANAGER MANUFACTURING-PUBLIC HEALTH OFFICER Work Phone: [facility] [employer] 12-20-2023 15:22-0400 Systolic blood pressure 100 mm[Hg] Summer Davalos HUMAN RESOURCES MANAGER MANUFACTURING-PUBLIC HEALTH OFFICER Work Phone: [facility] Encounters Encounter Date Encounter Type Care Provider Facility Start: 11-08-2024 End: 11-08-2024 Bamboo flowsheet Carmen Ayleen DO Work Phone: [facility] Start: 11-08-2024 End: 11-08-2024 Bamboo flowsheet Carmen Ayleen DO Work Phone: [facility] Start: 10-31-2024 End: 10-31-2024 Bamboo flowsheet Alyssa Pretty PA Work Phone: [facility] Start: 10-31-2024 End: 10-31-2024 Bamboo flowsheet Alyssa Pretty PA Work Phone: [facility] Start: 10-31-2024 End: 10-31-2024 flow sheet Alyssa Pretty PA Work Phone: [facility] Comment on above: Third trimester preg mau; 37 weeks gestation of Start: 10-31-2024 End: 10-31-2024 ambulatory ALYSSA PRETTY Not Available Start: 10-22-2024 End: 10-22-2024 Bamboo flowsheet Carmen Ayleen DO Work Phone: [facility] Start: 10-22-2024 End: 10-27-2024 Bamboo flowsheet Carmen Ayleen DO Work Phone: [facility] Start: 10-22-2024 End: 10-27-2024 Clinisync Result Encounter Carmen Ayleen DO Work Phone: [facility] Unsolicited Start: 10-22-2024 End: 10-22-2024 flow sheet Carmen Ayleen DO Work Phone: [facility] Comment on above: 36 weeks gestation o f ; Third trimester Start: 10-22-2024 End: 10-22-2024 ambulatory CARMEN AYLEEN Not Available Start: 10-15-2024 End: 10-15-2024 flow sheet Carmen [...] Not Available Start: 07-04-2024 End: 07-04-2024 ambulatory [facility] Start: 06-28-2024 End: 06-28-2024 [...] 05-29-2024 End: 05-30-2024 External Result Encounter Carmen Abbasi DO Work Phone: [facility] Unsolicited Start: 05-29-2024 End: 05-29-2024 Patient encounter procedure Carmen Abbasi DO Work Phone: [facility] Start: 05-29-2024 End: 05-29-2024 Periodic preventive med est patient 18-39 yrs Carmen Abbasi DO Work Phone: [facility] Comment on above: 15 weeks gestation o f ; Screening, , for anatomic survey; Well woman exam with routine gynecological exam; Exposure to STD; Vaginal discharge Start: 05-29-2024 End: 05-29-2024 ambulatory CARMEN GUTIERREZO Not Available Start: 05-11-2024 End: 05-11-2024 ambulatory ALYSSA MARIA DE JESUS Not Available Start: 02-17-2024 End: 02-18-2024 ambulatory [facility] Start: 02-17-2024 End: 02-17-2024 ambulatory [facility] Start: 02-15-2024 End: 02-15-2024 ambulatory CARMEN GUTIERREZO Not Available Start: 02-07-2024 End: 02-07-2024 ambulatory ALYSSA MARIA DE JESUS Not Available Start: 01-19-2024 End: 01-19-2024 Emergency department patient visit SUMMER DAVALOS [facility] Start: 12-20-2023 End: 12-20-2023 Office outpatient visit 15 minutes Summer Davalos HUMAN RESOURCES MANAGER MANUFACTURING-PUBLIC HEALTH OFFICER Work Phone: [facility] Comment on above: PTSD (post-traumatic stress disorder) (Primary Dx); General counseling and advice for contraceptive management; Class 2 obesity due to excess calories without serious comorbidity with body mass index (BMI) of 37.0 to 37.9 in adult Start: 12-20-2023 End: 12-20-2023 ambulatory TATY [facility] Start: 11-21-2023 Clinisync Result [...] Date Procedure Procedure Detail Performing Clinician Start: 10-31-2024 Urnls dip stick/tabl et rgnt non-auto w/o micrscp Alyssa ISSA Work Phone: Start: 10-22-2024 Urnls dip stick/tabl et rgnt non-auto w/o micrscp Carmen Ayleen DO Work Phone: Start: 10-22-2024 ALL MISCELLANEOUS TEST Carmen Ayleen DO Work Phone: Start: 10-15-2024 Urnls dip stick/tabl et rgnt [...] stick/tabl et rgnt non-auto w/o micrscp Alyssa Pretty PA Work Phone: Start: 05-29-2024 AFP, SERUM, OPEN [...] Adult depression scr eening assessment Summer Davalos HUMAN RESOURCES MANAGER [employer] Work Phone: Start: 11-21-2023 [facility] PREG QUANT HCG Core y Ayleen DO Work Phone: Start: 11-16-2022 Microscopic observat ion [Identifier] in Cervix by Cyto stain Summer Davalos HUMAN RESOURCES MANAGER [employer] Work Phone: Plan of Treatment Date Care Activity Detail Author Start: 11-13-2029 DTaP,Tdap and Td Vaccines (7 - Td or Tdap) DTaP,Tdap and Td Vaccines (7 - Td or Tdap) [facility] Start: 11-16-2025 Screening for malign ant neoplasm of cervix Pap Smear [facility] Start: 12-19-2024 Adult BMI Screening Adult BMI Screen ing [facility] Start: 12-19-2024 Depression Screening Depression Scre ening [facility] Start: 12-19-2024 Tobacco Screening Tobacco Screening [facility] Start: 11-08-2024 End: 11-08-2024 Patient encounter procedure 11/08/2024 11:10 AM EST Routine [facility] [address] [place] [id number] Carmen Abbasi, DO [address] [place] [address] [facility] Start: 10-31-2024 End: 10-31-2024 Patient encounter procedure [facility] Comment on above: Arrived Start: 10-22-2024 End: 10-22-2025 CULTURE, GROUP B STREP WITH SUSCEPTIBLITY CULTURE, GROUP B STREP WITH SUSCEPTIBLITY Lab Routine Third trimester Expected: 10/22/2024, Expires: 10/22/2025 [facility] Work Phone: Comment on above: Expected: 10/22/2024 , Expires: 10/22/2025 Start: 10-22-2024 End: 10-22-2024 Patient encounter procedure [facility] Comment on above: Arrived Start: 10-15-2024 End: 10-15-2024 Patient encounter procedure [facility] Comment on above: Arrived Start: 09-25-2024 End: 09-25-2024 Patient encounter procedure [facility] Comment on above: Arrived Start: 09-14-2024 Adult BMI Follow Up Plan Adult BMI Follow Up Plan [facility] Start: 09-11-2024 End: 09-11-2024 Patient encounter procedure [facility] Comment on above: Arrived Start: 09-11-2024 End: 09-11-2024 Professional / ancillary services management 09/11/2024 10:00 AM EST Ancillary Procedure [facility] [address] [facility] [address] [place] [address] [facility] Start: 08-28-2024 End: [...] mellitus screening Expected: 07/30/2024 (Approximate), Expires: 07/30/2025 [facility] Work Phone: Comment on above: Expected: 07/30/2024 (Approximate), Expires: 07/30/2025 Start: 07-30-2024 End: 07-30-2025 Measurement of glucose 1 hour after glucose challenge for glucose tolerance test Glucose tolerance, 1 hour Lab Routine Diabetes mellitus screening Expected: 07/30/2024 (Approximate), Expires: 07/30/2025 [facility] Comment on above: Expected: 07/30/2024 (Approximate), Expires: 07/30/2025 Start: 07-30-2024 End: 07-30-2024 Patient encounter procedure 07/30/2024 9:10 AM EDT Routine [facility] [address] [facility] [address] [place] [id number] Carmen Abbasi DO [address], [place] [id number] Arrived [facility] Comment on above: Arrived Start: 07-02-2024 End: 07-02-2024 Patient encounter procedure [facility] Start: 07-02-2024 End: 07-02-2024 Professional / ancillary services management 07/02/2024 8:30 AM EDT Ancillary Procedure [facility] [address] [facility] [place] [address] [facility] Start: 06-28-2024 End: 06-28-2024 Patient encounter procedure 06/28/2024 3:00 PM EDT Routine [facility] [address] [place] [id number] Alyssa Pretty PA [address] [place], [place] [id number] Arrived [facility] Comment on above: Arrived Start: 06-10-2024 Influenza vaccination Influenza Vacc ine (#1) [facility] Start: 05-29-2024 End: 07-29-2024 Alpha fetoprotein, maternal Alpha fetoprotein, maternal Lab Routine 15 weeks gestation of Expected: 05/29/2024 (Approximate), Expires: 07/29/2024 [facility] Comment on above: Expected: 05/29/2024 (Approximate), Expires: 07/29/2024 Start: 05-29-2024 End: 05-29-2025 US for US OB ANATOMY SINGLE W US OB CERVICAL LENGTH Imaging Routine Screening, , for anatomic survey Expected: 05/29/2024 (Approximate), Expires: 05/29/2025 [facility] Comment on above: Expected: 05/29/2024 (Approximate), Expires: 05/29/2025 Start: 05-29-2024 End: 05-29-2024 Patient encounter procedure 05/29/2024 10:50 AM EDT Routine [facility] [address] [place] [address] Carmen Abbasi DO [address] [facility] [facility] [address] [place], [place] [id number] Arrived [facility] Comment on above: Arrived Start: 06-10-2023 Influenza vaccination Influenza Vacc ine (#1) [facility] CHLAMYDIA TRACHOMATI S (GENITO/STI) CHLAMYDIA TRACHOMATIS (GENITO/STI) Lab Routine Exposure to STD Ordered: 05/29/2024 [facility] Comment on above: Ordered: 05/29/2024 Cytology Cervical or vaginal smear or scraping study Pap Smear Pathology and Cytology Routine Well woman exam with routine gynecological exam Ordered: 05/29/2024 [facility] Work Phone: Comment on above: Ordered: 05/29/2024 Neisseria gonorrhoea e DNA [Presence] in Unspecified specimen by RADHA with probe detection Neisseria gonorrhea DNA probe, direct Lab Routine Exposure to STD Ordered: 05/29/2024 [facility] Comment on above: Ordered: 05/29/2024 SURESWAB(R) ADVANCED VAGINITIS PLUS, TMA SURESWAB(R) ADVANCED VAGINITIS PLUS, TMA Pathology and Cytology Routine Vaginal discharge Ordered: 05/29/2024 [facility] Comment on above: Ordered: 05/29/2024 Immunizations Immunization Date Immunization Notes Care Provider Agnieszka jackson 11-13-2019 tetanus toxoid, redu clifford diphtheria toxoid, and acellular pertussis vaccine, adsorbed Summer Davalos HUMAN RESOURCES MANAGER MANUFACTURING-PUBLIC HEALTH OFFICER Work Phone: [facility] 01-22-2014 diphtheria, tetanus toxoids and acellular pertussis vaccine, unspecified formulation Summer Davalos HUMAN RESOURCES MANAGER MANUFACTURING-PUBLIC HEALTH OFFICER Work Phone: [facility] 06-22-2004 diphtheria, tetanus toxoids and acellular pertussis vaccine Summer Davalos HUMAN RESOURCES MANAGER MANUFACTURING-PUBLIC HEALTH OFFICER Work Phone: [facility] 06-22-2004 haemophilus influenz ae type b vaccine, PRP-T conjugate Summer Davalos HUMAN RESOURCES MANAGER MANUFACTURING-PUBLIC HEALTH OFFICER Work Phone: [facility] 06-22-2004 pneumococcal conjuga te vaccine, 7 valent Summer Davalos HUMAN RESOURCES MANAGER MANUFACTURING-PUBLIC HEALTH OFFICER Work Phone: [facility] 12-20-2003 DTaP-hepatitis B and poliovirus vaccine Summer Davalos HUMAN RESOURCES MANAGER MANUFACTURING-PUBLIC HEALTH OFFICER Work Phone: [facility] 12-20-2003 haemophilus influenz ae type b vaccine, PRP-T conjugate Summer Davalos HUMAN RESOURCES MANAGER MANUFACTURING-PUBLIC HEALTH OFFICER Work Phone: [facility] 12-20-2003 measles, mumps and rubella virus vaccine Summer Davalos HUMAN RESOURCES MANAGER MANUFACTURING-PUBLIC HEALTH OFFICER Work Phone: [facility] 12-20-2003 varicella virus vaccine Summer Davalos HUMAN RESOURCES MANAGER MANUFACTURING-PUBLIC HEALTH OFFICER Work Phone: [facility] 11-11-2003 DTaP-hepatitis B and poliovirus vaccine Summer Davalos HUMAN RESOURCES MANAGER MANUFACTURING-PUBLIC HEALTH OFFICER Work Phone: [facility] 11-11-2003 haemophilus influenz ae type b vaccine, PRP-T conjugate Summer Davalos HUMAN RESOURCES MANAGER MANUFACTURING-PUBLIC HEALTH OFFICER Work Phone: [facility] 11-11-2003 pneumococcal conjuga te vaccine, 7 valent Summer Davalos HUMAN RESOURCES MANAGER MANUFACTURING-PUBLIC HEALTH OFFICER Work Phone: [facility] 05-31-2003 DTaP-hepatitis B and poliovirus vaccine Summer Davalos HUMAN RESOURCES MANAGER MANUFACTURING-PUBLIC HEALTH OFFICER Work Phone: [facility] 05-31-2003 haemophilus influenz ae type b vaccine, PRP-T conjugate Summer Davalos HUMAN RESOURCES MANAGER MANUFACTURING-PUBLIC HEALTH OFFICER Work Phone: [facility] 05-31-2003 pneumococcal conjuga te vaccine, 7 valent Summer Davalos HUMAN RESOURCES MANAGER MANUFACTURING-PUBLIC HEALTH OFFICER Work Phone: [facility] 2002 hepatitis B vaccine, pediatric or pediatric/adolescent dosage Smumer Daavlos HUMAN RESOURCES MANAGER MANUFACTURING-PUBLIC HEALTH OFFICER Work Phone: [facility] Payers Date Payer Category Payer Private Health Insurance [facility] [id number] 2024 Unknown [id number] 2022 Medicaid (Managed Care) [employer] [id number] 2018 Medicaid [id number] 2002 Unknown [id number] 2.16.840.1.472461.3.579.2. 6 2002 Unknown [id number] 2.16.840.1.543517.3.579.2. 128 2002 Unknown [id number] 2.16.840.1.113313.3.579.2. 1285 2002 Unknown [id number] 2.16.840.1.358343.3.579.2. 128 2002 Unknown [id number] 2.16.840.1.041493.3.579.2. 1285 2002 Unknown [id number] 2.16.840.1.439764.3.579.2. 1258 2002 Unknown [id number] 2.16.840.1.617228.3.579.2. 1258 2002 Unknown [id number] 2.16.840.1.238838.3.579.2. 1258 2002 Unknown [id number] 2.16.840.1.116629.3.579.2. 1258 2002 Unknown [id number] 2.16.840.1.626561.3.579.2. 1258 2002 Unknown [id number] 2.16.840.1.728136.3.579.2. 1258 2002 Unknown [id number] 2.16.840.1.829696.3.579.2. 1258 2002 Unknown [id number] 2.16.840.1.256367.3.579.2. 1258 2002 Unknown [id number] 2.16.840.1.417761.3.579.2. 1258 2002 Unknown [id number] 2.16.840.1.646627.3.579.2. 1258 2002 Unknown [id number] 2.16.840.1.879420.3.579.2. 1259 2002 Unknown [id number] 2.16.840.1.475066.3.579.2. 1259 1982 Unknown [id number] 2.16.840.1.951677.3.579.2. 593 1982 Unknown [id number] 2.16.840.1.727119.3.579.2. 593 1982 Unknown [id number] 2.16.840.1.825305.3.579.2. 593 1959 Unknown [id number] 1959 Unknown [id number] Social History Date Type Detail Facility Start: 05-19-2023 Tobacco smoking status NHIS Tobacco smoking consumption unknown [facility] Start: 05-19-2023 Tobacco use and exposure User of smokeless tobacco [facility] Start: 11-18-2023 End: 10-22-2024 Alcohol intake Lifetime non-drinker (finding) [facility] Start: 05-19-2023 End: 11-18-2023 History of Social function [facility] Start: 05-19-2023 End: 11-18-2023 Tobacco use panel [facility] Start: 2000 Sex Assigned At Not on file [facility] Start: 01-15-2023 Tobacco smoking status [facility] Never smoked tobacco [facility] Start: 01-15-2023 Tobacco use and exposure Smokeless tobacco non-user [facility] Frequency of Alcohol Consumption Never [facility] Start: 02-24-2024 [facility] Start: 2000 Sex assigned at Female [facility] Start: 01-23-2024 Gender identity Identifies as female gender (finding) [facility] Start: 01-23-2024 Sexual orientation Heterosexual (finding) [facility] Notes 12-20-2023 to 10-31-2024 MAEGAN Link 10/31/2024 1:20 PM Martha Bloom LPN - 10/22/2024 2:00 PM Martha Bloom LPN - 10/15/2024 2:40 PM MAEGAN Liang 09/25/2024 1:50 PM MAEGAN Liang - 06/28/2024 3:00 PM EDT Note Date & Type Note Facility 10-31-2024 History of Present illness Narrative Reason for Appointment: Patient ID: Lorie Martinez is a 23 y.o. female who presents for Routine Visit Patient presents today for Return OB appointment. MEDICATIONS Current Outpatient Medications Medication Instructions Calcium Carbonate Antacid (TUMS PO) Take by mouth citalopram (CELEXA) 20 mg, Oral, Daily MV-Min-Fe Fum-FA-DHA ( 1 PO) Take by mouth ALLERGIES Allergies Allergen Reactions Ondansetron Rash PROBLEMS Active Ambulatory Problems Diagnosis Date Noted 32 weeks gestation of 09/25/2024 Anxiety with depression 09/25/2024 Third trimester 09/25/2024 36 weeks gestation of 10/22/2024 Resolved Ambulatory Problems Diagnosis Date Noted No Resolved Ambulatory Problems Past Medical History: Diagnosis Date ADHD (attention deficit hyperactivity disorder) ([facility]) HISTORY PAST MEDICAL HISTORY SOCIAL HISTORY Past Medical History: Diagnosis Date ADHD (attention deficit hyperactivity disorder) ([facility]) Social History Tobacco Use Smoking status: [...] reviewed. Vitals: Estimated body mass index is 41 kg/m as calculated from the following: Height as of 08/01/23: 5' 7 . Weight as of this encounter: 261 lb 12.8 oz. BP: 124/76 No LMP recorded. Patient is . ASSESSMENT & PLAN ICD-10-CM 1. Third trimester Z34.93 POCT urinalysis dipstick manually resulted 2. 37 weeks gestation of Z3A.37 Return OB: Patient presents today for a routine obstetrics appointment. Patient is currently 37w5d . Patient states she is doing well but has complaints of being tired due to current . Patient has verbalizes frequent movement. labor precautions was discussed/given and patient was instructed to perform kick counts three times a day. Orders Placed This Encounter Procedures POCT urinalysis dipstick manually resulted Follow Up: Patient is to return to office in 1 week for routine OB appointment. Documented by MAEGAN Link on behalf of: MAEGAN Link documented in this encounter [facility] 10-22-2024 History of Present illness Narrative Reason for Appointment: Patient ID: Lorie Martinez is a 23 y.o. female who presents for No chief complaint on file. Patient presents today for Return OB appointment. MEDICATIONS Current Outpatient Medications Medication Instructions Calcium Carbonate Antacid (TUMS PO) Take by mouth citalopram (CELEXA) 20 mg, Oral, Daily MV-Min-Fe Fum-FA-DHA ( 1 PO) Take by mouth ALLERGIES Allergies Allergen Reactions Ondansetron Rash PROBLEMS Active Ambulatory Problems Diagnosis Date Noted 32 weeks gestation of 09/25/2024 Anxiety with depression 09/25/2024 Third trimester 09/25/2024 Resolved Ambulatory Problems Diagnosis Date Noted No Resolved Ambulatory Problems Past Medical History: Diagnosis Date ADHD (attention deficit hyperactivity disorder) ([facility]) HISTORY PAST MEDICAL HISTORY SOCIAL HISTORY Past Medical History: Diagnosis Date ADHD (attention deficit hyperactivity disorder) ([facility]) Social History Tobacco Use Smoking status: [...] systems reviewed and are negative. OBJECTIVE Objective: OBGyn Exam Vitals: Estimated body mass index is 41.25 kg/m as calculated from the following: Height as of 08/01/23: 5' 7 . Weight as of this encounter: 263 lb 6.4 oz. BP: 100/60 No LMP recorded. Patient is . ASSESSMENT & PLAN ICD-10-CM 1. 36 weeks gestation of Z3A.36 POCT urinalysis dipstick manually resulted 2. Third trimester Z34.93 POCT urinalysis dipstick manually resulted CULTURE, GROUP B STREP WITH SUSCEPTIBLITY CULTURE, GROUP B STREP WITH SUSCEPTIBLITY Patient is doing well but has complaints of being tired and having maternal discomfort due to . Patient verbalized frequent movement and was instructed to perform kick counts three times per day. labor precautions were given, LARC consent was signed/declined, and GBS was obtained. Orders Placed This Encounter Procedures CULTURE, GROUP B STREP WITH SUSCEPTIBLITY POCT urinalysis dipstick manually resulted Follow Up: Patient is to return to office in 1 week for routine OB appointment Documented by Sara Bloom LPN on behalf of: Carmen Abbasi DO documented in this encounter [facility] 10-15-2024 History of Present illness Narrative Reason [...] Diagnosis Date ADHD (attention deficit hyperactivity disorder) ([facility]) HISTORY PAST MEDICAL HISTORY SOCIAL HISTORY Past [...] nursing note reviewed. Exam conducted with a button pusher present. Vitals: Estimated body mass index is [...] Carmen Abbasi DO documented in this encounter [facility] 09-25-2024 History of Present illness Narrative Reason [...] nursing note reviewed. Exam conducted with a button pusher present. Vitals: Estimated body mass index is [...] of: MAEGAN Link documented in this encounter [facility] 09-11-2024 History of Present illness Narrative Reason [...] nursing note reviewed. Exam conducted with a button pusher present. Vitals: Estimated body mass index is [...] Carmen Abbasi DO documented in this encounter [facility] 08-28-2024 History of Present illness Narrative Reason [...] Diagnosis Date ADHD (attention deficit hyperactivity disorder) ([facility]) HISTORY PAST MEDICAL HISTORY SOCIAL HISTORY [...] of: MAEGAN Link documented in this encounter [facility] 07-30-2024 History of Present illness Narrative Reason [...] nursing note reviewed. Exam conducted with a button pusher present. Vitals: Estimated body mass index is [...] week with [facility] in [place] and will reach out to there office to reschedule appointment. Documented by Sara Bloom LPN on behalf of: Carmen Abbasi DO documented in this encounter [facility] 06-28-2024 History of Present illness Narrative Reason [...] Diagnosis Date ADHD (attention deficit hyperactivity disorder) ([facility]) HISTORY PAST MEDICAL HISTORY SOCIAL HISTORY Past [...] of: MAEGAN Link documented in this encounter [facility] 05-29-2024 History of Present illness Narrative Reason [...] Diagnosis Date ADHD (attention deficit hyperactivity disorder) ([facility]) HISTORY PAST MEDICAL HISTORY SOCIAL HISTORY Past Medical History: Diagnosis Date ADHD (attention deficit hyperactivity disorder) ([facility]) Social History Tobacco Use Smoking status: [...] nursing note reviewed. Exam conducted with a button pusher present. Vitals: Estimated body mass index is [...] Carmen Abbasi DO documented in this encounter [facility] 12-20-2023 History of Present illness Narrative Subjective [...] in adult She has her contraception and clinical data manager care thru Dr Abbasi, she should [...] 12/20/23 1629 documented in this encounter [facility] Evaluation note Diagnosis PTSD (post-traumatic stress disorder)- Primary Posttraumatic stress disorder General counseling and advice for contraceptive management Class 2 obesity due to excess calories without serious comorbidity with body mass index (BMI) of 37.0 to 37.9 in adult [facility] Diagnosis 24 weeks gestation [...] [facility] Diagnosis 36 weeks gestation of Third trimester state, incidental [facility] Diagnosis Third trimester state, incidental 37 weeks gestation of documented in this encounter [facility] HealthcareInstructionsNot on filedocumented in [facility] for referral (narrative)* Consultation (Routine) - Pending Review Specialty Diagnoses / Procedures Referred By Vinny stoddard Referred To Contact Diagnoses PTSD (post-traumatic stress disorder) Summer Davalos APRN-FNP [address] [place] [address] Referral ID Status Reason Start Date Expiration Date Visits Requested Visits Authorized [id number] Pending Review Patient Preference 12/20/2023 12/19/2024 1 1 [facility] Summary Purpose Family History No [...] and content) DATE CREATED AUTHOR 01/27/2023 [facility] DATE CREATED AUTHOR AUTHOR'S ORGANIZ ATION 01/20/2024 [facility] DATE CREATED AUTHOR AUTHOR'S ORGANIZ ATION 02/20/2024 [facility] DATE CREATED AUTHOR AUTHOR'S ORGANIZ ATION 07/06/2024 [facility] DATE CREATED AUTHOR AUTHOR'S ORGANIZ ATION 11/02/2024 [facility] d[facility] Specialists EP[facility] Care Teams (unrecognized sec tion and content) Adjunct Lecturer Relationship Specialty Start Date End Date Reid Jasmine MD PCP - General Family Medicine 08/01/23 Adjunct Lecturer Relationship Specialty Start Date End Date Summer Davalos APRN-[facility] [address] [id number] PCP - General Internal Medicine 09/14/23 Reason [...] BE BASED ON THE PRIMARY CLINICAL RECORDS. [facility] [employer] provides no warranty or guarantee of the accuracy or completeness of information in this document.
[2024-11-09] MEDS: 0.9 % SODIUM CHLORIDE 1,000 ML 1000 ML IV (06:07)
[2024-11-09 06:30] LABS: Basophils Percent Auto 0.4 % (0.2-2.0); Eosinophils Absolute Auto 0.1 10^3/uL (0.0-0.7); Eosinophils Percent Auto 1.5 % (0.9-7.0); Hematocrit 32.1 % (36.0-48.0); Hemoglobin 10.8 g/dL (12.0-16.0); Immature Granulocytes Abs Auto 0.03 10^3/uL (0.00-0.03); Immature Granulocytes Pct Auto 0.4 % (0.0-0.5); Lymphocytes Percent Auto 27.6 % (20.5-60.0); Mean Corpuscular HGB Conc 33.6 g/dL (29.9-35.2); Mean Corpuscular Hemoglobin 28.5 pg (26.7-34.0); Mean Corpuscular Volume 84.7 fL (81.0-99.0); Mean Platelet Volume 10.7 fL (9.5-13.5); Monocytes Absolute Auto 0.7 10^3/uL (0.3-0.8); Neutrophils Absolute Auto 4.3 10^3/uL (1.4-6.5); Neutrophils Percent Auto 60.1 % (43.0-75.0); Platelet Count 226 10^3/uL (150-450); Red Blood Count 3.79 10^6/uL (4.20-5.40); Red Cell Distribution Width 14.2 % (11.0-15.0); White Blood Count 7.2 10^3/uL (4.0-11.0)
[2024-11-09 06:41] LABS: Bilirubin Urine NEGATIVE (NEGATIVE); Blood Urine NEGATIVE (NEGATIVE); Clarity Urine CLEAR (CLEAR); Color Urine YELLOW (YELLOW); Glucose Urine UA NEGATIVE (NEGATIVE); Ketones Urine NEGATIVE (NEGATIVE); Leukocyte Esterase Urine NEGATIVE (NEGATIVE); Nitrite Urine NEGATIVE (NEGATIVE); Protein Urine NEGATIVE (NEG/TRACE); Specific Gravity Urine 1.025 (1.005-1.025)
[2024-11-09 06:50] LABS: Amphetamine Screen Urine NEGATIVE (NEGATIVE); Barbiturates Screen Urine NEGATIVE (NEGATIVE); Benzodiazepines Screen Urine NEGATIVE (NEGATIVE); Buprenorphine Screen Urine NEGATIVE (NEGATIVE); Cannabinoid Screen Urine NEGATIVE (NEGATIVE); Cocaine Screen Urine NEGATIVE (NEGATIVE); Methadone Screen Urine NEGATIVE (NEGATIVE); Methamphetamines Screen Urine NEGATIVE (NEGATIVE); Opiate Screen Urine NEGATIVE (NEGATIVE); Oxycodone Screen Urine NEGATIVE (NEGATIVE); Phencyclidine Screen Urine NEGATIVE (NEGATIVE); Tricyclic Antidepressant Urine NEGATIVE (NEGATIVE)
[2024-11-09 06:54] LABS: Bacteria Urine SMALL #/HPF (NONE SEEN); Cast Seen? NONE SEEN #/LPF (NONE SEEN); Crystals Seen? None Seen #/HPF (None Seen); Mucus Urine TRACE (NONE SEEN); RBC Urine 0-2 #/HPF (0-2); Squamous Epithelial Cell Urine MODERATE #/LPF (NONE/RARE); Urine Culture Indicated YES; WBC Urine NONE SEEN #/HPF (NONE SEEN)
[2024-11-09] MEDS: CITRIC ACID/SODIUM CITRATE 30 ML SOLUTION ORACIT SHOHL'S SOLN PO (06:57)
[2024-11-09] MEDS: FAMOTIDINE/PF 20 MG/2 ML VIAL IV (06:57)
[2024-11-09] MEDS: METOCLOPRAMIDE HCL 10 MG/2 ML VIAL IVP (06:57)
[2024-11-09] MEDS: 0.9 % SODIUM CHLORIDE 1,000 ML 125 ML IV (07:15)
[2024-11-09] MEDS: CEFAZOLIN SODIUM/DEXTROSE,ISO 2 GM/50 ML PIGGYBACK IV ×2 (07:45→13:56)
[2024-11-09] MEDS: LACTATED RINGER'S SOLUTION 1,000 ML 50 ML IV ×2 (08:41→08:58)
--- NOTE | 2024-11-09 08:50 | PM.ONB ---
Brief Operative Note Date of procedure: 11/09/24 Pre-op diagnosis general: iup at 39wks, previous c/s Post-op diagnosis: same as pre-op Procedure: NAME OF PROCEDURE: [ section ] PROCEDURE: Patient was taken back to the Operating Room where she was given a spinal anesthesia with Duramorph without difficulty. She was prepped and draped in the normal sterile fashion. A Pfannenstiel skin incision was then made 2 cm above the symphysis pubis and carried down to underlying rectus fascia using a Bovie. The fascia was incised in the midline and extended laterally using Fan scissors. Two Maggie clamps were placed on the superior aspect of the fascia and dissected off the underlying rectus muscles. The same was performed on the inferior aspect as well. The muscles were then in the midline. Peritoneum was identified and entered bluntly. The peritoneum was then extended superiorly and inferiorly with good visualization of the bladder. The bladder blade was inserted. A low transverse incision was made on the patient's uterus and extended laterally digitally. The was then delivered atraumatically after the bladder blade was removed in the cephalic position. The cord was clamped and cut. Cord blood was obtained. The was handed off to awaiting team. The patient's placenta was spontaneously delivered. The uterus was then exteriorized. The uterus was cleared of all clots and debris. The bladder blade was reinserted. The patient's uterine incision was closed using #0 Vicryl in a running lock fashion. Excellent hemostasis was assured. The uterus was then returned to the patient's abdomen. The patient's abdomen was copiously irrigated using warm saline. Peritoneal gutters were cleared of all clots and debris. Again excellent hemostasis was assured. The patient's peritoneum was closed using 3-0 Vicryl in a running fashion. The patient's fascia was closed using #0 Vicryl in a running fashion. The patient's skin was closed using 4-0 Vicryl subcuticularly. The patient tolerated the procedure well. Sponge, lap, and needle counts were correct x2. The patient was taken to the Recovery Room in stable condition. Anesthesia: spinal Surgeon: Harry Abbasi Oiler Helper: Yoli Case Estimated blood loss (mL): 575 Pathology: none sent Condition: stable Disposition: PACU Urinary Catheter Management Urinary Catheter Management Urethral: Cath placed during this visit: no
--- NOTE | 2024-11-09 08:51 | P.OBPRC_ITS ---
Procedure Pre-op/Post-op diagnoses: Pre-Op/Post-Op Diagnoses Operation Date: 11/09/24 07:30 <No data on this case meets the specified criteria> Procedure: Procedures Operation Date: 11/09/24 07:30 Actual Procedure Side Surgeon p Repeat Not Applicable Harry Abbasi DO Mental Hygiene Consultant: Yoli Case Disposition: PACU Anesthesia type: Spinal
--- NOTE | 2024-11-09 09:38 | PC.NURSE ---
BABY TO BREAST; SIGNIFICANT OTHER PRESENT
--- NOTE | 2024-11-09 10:01 | PC.NURSE ---
Spinal level at hips bilaterally; diaper changed and pericare given
--- NOTE | 2024-11-09 15:26 | RESP.RT ---
done per nursing
[2024-11-09] MEDS: ACETAMINOPHEN 500 MG TABLET 1000 MG PO ×2 (16:21→23:52)
[2024-11-09] MEDS: KETOROLAC TROMETHAMINE 30 MG/ML VIAL IVP ×2 (17:29→23:52)
[2024-11-09] MEDS: ENOXAPARIN SODIUM 40 MG/0.4 ML SYRINGE SUBQ (20:33)
[2024-11-10 04:59] VITALS: BP 103/62
[2024-11-10] MEDS: KETOROLAC TROMETHAMINE 30 MG/ML VIAL IVP (06:42)
[2024-11-10 06:56] LABS: Basophils Percent Auto 0.3 % (0.2-2.0); Eosinophils Percent Auto 0.3 % (0.9-7.0); Hematocrit 26.5 % (36.0-48.0); Hemoglobin 8.8 g/dL (12.0-16.0); Immature Granulocytes Abs Auto 0.06 10^3/uL (0.00-0.03); Immature Granulocytes Pct Auto 0.5 % (0.0-0.5); Lymphocytes Absolute Auto 2.3 10^3/uL (1.2-3.8); Lymphocytes Percent Auto 19.6 % (20.5-60.0); Mean Corpuscular HGB Conc 33.2 g/dL (29.9-35.2); Mean Corpuscular Hemoglobin 28.4 pg (26.7-34.0); Mean Corpuscular Volume 85.5 fL (81.0-99.0); Mean Platelet Volume 10.5 fL (9.5-13.5); Monocytes Absolute Auto 1.1 10^3/uL (0.3-0.8); Monocytes Percent Auto 9.1 % (1.7-12.0); Neutrophils Absolute Auto 8.2 10^3/uL (1.4-6.5); Neutrophils Percent Auto 70.2 % (43.0-75.0); Platelet Count 215 10^3/uL (150-450); Red Cell Distribution Width 14.4 % (11.0-15.0); White Blood Count 11.7 10^3/uL (4.0-11.0)
[2024-11-10 08:46] VITALS: BP 109/70
[2024-11-10] MEDS: DOCUSATE SODIUM 100 MG CAPSULE PO (08:48)
[2024-11-10] MEDS: ACETAMINOPHEN 500 MG TABLET 1000 MG PO ×2 (08:48→16:35)
--- NOTE | 2024-11-10 09:36 | PM.OBPN ---
OB - PN: Subj Subjective Patient comments: no complaints [place] status: doing well [place] feeding status: exclusively Exam Constitutional Vital Signs, click to edit/add: Last Vital Signs Temp 98.8 F 11/09/24 23:44 Pulse 60 11/09/24 23:44 Resp 17 11/09/24 23:44 BP 103/62 11/10/24 04:59 Pulse Ox 97 11/09/24 09:46 O2 Del Method Room Air 11/10/24 05:00 Documenting provider has reviewed patient's vital signs: yes Common normals: no apparent distress, average body habitus, oriented x3, no limitations, healthy appearing, alert and well nourished General appearance: cooperative and comfortable Orientation/consciousness: Yes awake, Yes oriented to person, Yes oriented to place and Yes oriented to time HENMT Common normals: normocephalic Eye Common normals: EOMs intact bilaterally Neck & C-Spine Common normals: full ROM General: normal visual inspection Lymph Lymphatic: no lymphadenopathy noted Respiratory Common normals: normal respiratory effort Effort & inspection: able to speak in complete sentences Auscultation: clear to auscultation bilaterally Cardio Common normals: regular rate and regular rhythm Rate: regular rate Rhythm: regular rhythm GI Common normals: Normal to inspection, nondistended, normoactive bowel sounds present, soft to palpation and non-tender Palpation: soft Common normals: no CVA tenderness Extremity Common normals: normal to inspection Neuro Common normals: oriented x3 Sensorium/orientation: awake, alert, oriented to person, oriented to place and oriented to time Psych Common normals: mental status grossly normal, thought process normal, cooperative, affect normal, speech normal, activity/motor behavior normal, denies hallucinations, denies homicidal ideation and denies suicidal ideation Appearance: grossly normal and well kempt Attitude: calm Results Labs Labs: Short CBC 11/10/24 Range/Units 06:46 WBC 11.7 H (4.0-11.0) 10^3/uL Hgb 8.8 L (12.0-16.0) g/dL Hct 26.5 L (36.0-48.0) % Plt Count 215 (150-450) 10^3/uL Urinary Catheter Management Urinary Catheter Management Urethral: Cath placed during this visit: yes, but has since been removed by the nurse Insertion date: 11/09/24 Removal date: 11/09/24 Removal time: 18:10 OB - PN: A/P Plan - day: 1 Plan: routine postop care Time Spent with Patient Time: Total time spent is greater than 50% in coordination of care (as documented) at patient's floor/unit and/or counseling patient: Total time spent with greater than 50% in coordination of care (as documented) at patient's floor/unit and/or counseling patient: less than 15 minutes
[2024-11-10] MEDS: IBUPROFEN 400 MG TABLET 800 MG PO ×2 (11:35→17:56)
[2024-11-10 14:45] VITALS: TEMP 36.3
[2024-11-10 14:53] VITALS: BP 108/61
--- NOTE | 2024-11-10 19:22 | W.PC.ACHO ---
Registration Status: ADM IN Primary Language: Anguillan Preferred Language: Anguillan Report given to Mazin CASTILLO at 11/10/2024 at 1915. Active Medications Generic Name Dose Route Start Last Admin Trade Name Freq PRN Reason Stop Dose Admin Acetaminophen 1,000 mg 11/09/24 16:00 11/10/24 16:35 Acetaminophen 500 Mg Tablet PO 1,000 mg Q8H ROEL Administration Al Hydroxide/Mg Hydroxide 2,400 mg 11/09/24 08:51 Magnesium Hydroxide 2,400 Mg/10 Ml Oral.Susp PO Q6H PRN Dyspepsia Diphtheria/Pertussis/Tetanus Vacc 0.5 ml 11/11/24 09:00 Adacel Diph,Pertuss(Acell),Tet Vac/Pf 0.5 Ml Adult Syringe IM 11/11/24 09:01 .ONCE ONE Docusate Sodium 100 mg 11/10/24 09:00 11/10/24 08:48 Docusate Sodium 100 Mg Capsule PO 100 mg BID ROEL Administration Enoxaparin Sodium 40 mg 11/09/24 21:00 11/09/24 20:33 Enoxaparin Sodium 40 Mg/0.4 Ml Syringe SUBQ 40 mg Q24H ROEL Administration Sodium Chloride 1,000 mls @ 125 mls/hr 11/09/24 06:00 11/09/24 07:15 Sodium Chloride 0.9% 1,000 Ml IV 125 mls/hr .Q8H ROEL Administration Oxytocin/Sodium Chloride 20 units in 1,000 mls @ 125 mls/hr 11/09/24 05:47 Pitocin 20 Unit/1,000 Ml-Ns IV Q8H PRN POST DELIVERY Promethazine HCl 25 mg/ Sodium 51 mls @ 204 mls/hr 11/09/24 08:51 Chloride IV Q6H PRN Nausea And Vomiting Lactated Ringer's 1,000 mls @ 125 mls/hr 11/09/24 08:51 Lactated Ringers IV .Q8H PRN IF NOT TOLERATING PO FLUIDS OR Ibuprofen 800 mg 11/10/24 06:00 11/10/24 17:56 Ibuprofen 400 Mg Tablet PO 800 mg Q6H ROEL Administration Measles/Mumps/Rubella Vaccine Live 0.5 ml 11/11/24 09:00 Measles,Mumps,Rubella Vacc/Pf 0.5 Ml Vial SQ 11/11/24 09:01 .ONCE ONE Oxycodone HCl 5 mg 11/09/24 08:51 Oxycodone Hcl 5 Mg Tablet PO Q4H PRN Breakthrough Pain Senna 17.2 mg 11/09/24 20:00 Sennosides 8.6 Mg Tablet PO QHS PRN Constipation Simethicone 80 mg 11/09/24 08:51 Simethicone 80 Mg Tab.Chew PO QID PRN Abdominal Distention Respiratory Oxygen Delivery Method Room Air Oxygen Delivery Method Room Air Oxygen Delivery Method Room Air Oxygen Delivery Method Room Air Oxygen Delivery Method Room Air Renal Bladder Pattern Continent Bladder Pattern Continent Catheter Urinary Catheter Date of 11/09/24 Insertion [Urethral] Date Urinary Catheter Removed 11/09/24 [Urethral] Time Urinary Catheter 18:10 Discontinued [Urethral]
[2024-11-11 00:28] VITALS: BP 109/76; TEMP 36.9
[2024-11-11] MEDS: ACETAMINOPHEN 500 MG TABLET 1000 MG PO ×2 (00:32→09:04)
[2024-11-11] MEDS: IBUPROFEN 400 MG TABLET 800 MG PO ×2 (00:33→09:05)
[2024-11-11] MEDS: ENOXAPARIN SODIUM 40 MG/0.4 ML SYRINGE SUBQ (00:34)
[2024-11-11] MEDS: DOCUSATE SODIUM 100 MG CAPSULE PO (09:05)
[2024-11-11 09:36] VITALS: BP 112/71; PULSE 84; TEMP 36.4
--- NOTE | 2024-11-11 09:59 | PM.OBPN ---
OB - PN: Subj Subjective Patient comments: no complaints and pain well controlled [place] status: doing well Exam Constitutional Vital Signs, click to edit/add: Last Vital Signs Temp 97.5 F L 11/11/24 09:36 Pulse 84 11/11/24 09:36 Resp 16 11/11/24 09:36 BP 112/71 11/11/24 09:36 Pulse Ox 97 11/09/24 09:46 O2 Del Method Room Air 11/11/24 09:40 Documenting provider has reviewed patient's vital signs: yes Common normals: no apparent distress Respiratory Common normals: normal respiratory effort and clear to auscultation bilaterally Cardio Common normals: regular rate and regular rhythm GI Common normals: Normal to inspection, nondistended, normoactive bowel sounds present Extremity Common normals: normal to inspection, no clubbing, cyanosis or edema and no calf tenderness Urinary Catheter Management Urinary Catheter Management Urethral: Cath placed during this visit: yes, but has since been removed by the nurse Insertion date: 11/09/24 Removal date: 11/09/24 Removal time: 18:10 OB - PN: A/P Plan - day: 2 Plan: routine postop care, discharge home and other (fu 1wk) Time Spent with Patient Time: Total time spent is greater than 50% in coordination of care (as documented) at patient's floor/unit and/or counseling patient: Total time spent with greater than 50% in coordination of care (as documented) at patient's floor/unit and/or counseling patient: less than 15 minutes
== END 2024-11-11 14:00 | disposition home or self-care (01) | DRG 788 ==
PROVIDERS: Admitting Provider Obstetrics & Gynecology; PCP Nurse Practitioner Family; Visit Provider Obstetrics & Gynecology
PROC: 10D00Z1 Extraction of Products of Conception, Low, Open Approach (ICD-10-PCS; CPT 59514; principal; 2024-11-09 07:30)
DX: O34.211 Maternal care for low transverse scar from previous cesarean delivery (principal); Z3A.39 39 weeks gestation of pregnancy; Z37.0 Single live birth; O99.334 Smoking (tobacco) complicating childbirth; F17.290 Nicotine dependence, other tobacco product, uncomplicated
CPT/HCPCS: 36415; 59025; 59050; 64488; 80307; 81001; 85025; 86850; 86900; 86901; 87086; 94667; J0131; J0665; J0690; J1100; J1650; J1885; J2274; J2371; J2765; J3490

== ENCOUNTER 2025-06-27 19:20 | Outpatient (REF) | payer OTHER, SELFPAY ==
--- OUTSIDE RECORDS SUMMARY | 2025-06-27 10:40 | XMS_ITS | Encounter Summary ---
Author Organization [facility] Address [address] [place] [address] Care Team Providers Care Oyster Grader Name Role Phone Unavailable Primary Care Provider Unavailabl e Reason for Visit * Reason Comments Pre-op Visit Gynecologic Exam Well Women Visit Encounter Details Date Type Department Care Team (Latest Contact Info) Description 06/27/2025 10:40 AM EDT Procedure Visit [facility] [address] [place] [place] [address] Harry Abbasi DO [address] [place], [place] [phone] Pre-op examination; Request for sterilization; Well woman exam with routine gynecological exam; Exposure to STD; Vaginal discharge; Upper back pain Social History Tobacco Use Types Packs/Day Years Used Date Smoking Tobacco: Unknown Smokeless Tobacco: Current Alcohol Use Standard Drinks/Week Comments Never 0 (1 standard drink = 0.6 oz pur e alcohol) Comments Unknown Sex and Gender Information Value Date Recorded Sex Assigned at Female 01/23/2024 11:09 AM EDT Legal Sex Female 6:41 PM EDT Gender Identity Female 01/23/2024 11:09 AM EDT Sexual Orientation Straight 01/23/2024 11 :09 AM EDT documented as of this encounter Last Filed Vital Signs Vital Sign Reading Time Taken Comments Blood Pressure 100/70 06/27/2025 10:47 AM EDT Pulse - - Temperature - - Respiratory Rate - - Oxygen Saturation - - Inhaled Oxygen Concentration - - Weight 124 kg (274 lb) 06/27/2025 10:47 AM EDT Height - - Body Mass Index 42.91 08/01/2023 10:36 AM EDT documented in this encounter Progress Notes * Bushra Santillan - 06/27/2025 10:40 AM EDT Reason for Appointment: Patient ID: Lorie Martinez is a 24 y.o. female who presents for Pre-op Visit, Gynecologic Exam, andWell Women Visit Patient presents today for Pre Op/Annual appointment. Patient is scheduled to undergo [facility] Bilateral Laparoscopic Salpingectomy on 08-02-[address] Abbasi at [facility]. MEDICATIONS Current Outpatient Medications Medication Instructions citalopram (CELEXA) 20 mg, Oral, Daily ibuprofen 800 mg, Every 8 hours ALLERGIES Allergies Allergen Reactions Ondansetron Rash PROBLEMS Active Ambulatory Problems Diagnosis Date Noted Anxiety with depression 09/25/2024 6 weeks follow-up ([facility]) 12/12/2024 Postoperative follow-up 12/12/2024 Resolved Ambulatory Problems Diagnosis Date Noted 32 weeks gestation of ([facility]) 09/25/2024 Third trimester ([facility]) 09/25/2024 36 weeks gestation of ([facility]) 10/22/2024 Past Medical History: Diagnosis Date ADHD (attention deficit hyperactivity disorder) HISTORY PAST MEDICAL HISTORY SOCIAL HISTORY Past Medical History: Diagnosis Date ADHD (attention deficit hyperactivity disorder) Social History Tobacco Use Smoking status: Unknown Smokeless tobacco: Current Substance Use Topics Alcohol use: Never Drug use: Never FAMILY HISTORY Family History Problem Relation Name Age of Onset Acute myelogenous leukemia Other SURGICAL HISTORY Past Surgical History: Procedure Laterality Date SECTION, LOW TRANSVERSE 01/12/2020 SECTION, LOW TRANSVERSE 11/09/2024 CT GUIDED TRANSVAGINAL TRANSRECTAL FLUID DRAIN 08/12/2022 CT GUIDED TRANSVAGINAL TRANSRECTAL FLUID DRAIN 08/12/2022 OTHER SURGICAL HISTORY Nexplanon Removal REVIEW OF SYSTEMS Review of Systems: Review of Systems Constitutional: Negative. HENT: Negative. Eyes: Negative. Respiratory: Negative. Cardiovascular: Negative. Gastrointestinal: Negative. Genitourinary: Negative. Musculoskeletal: Negative. Skin: Negative. Neurological: Negative. All other systems reviewed and are negative. Hematological: Negative. Endocrine: Negative. Allergic/Immunologic: Negative. OBJECTIVE Objective: OBGyn Exam Vitals: Estimated body mass index is 42.91 kg/m?? as calculated from the following: Height as of 08/01/23: 5' 7 . Weight as of this encounter: 274 lb. BP: 100/70 Patient's last menstrual period was 06/17/2025. ASSESSMENT & PLAN ICD-10-CM 1. Pre-op examination Z01.818 2. Request for sterilization Z30.2 3. Well woman exam with routine gynecological exam Z01.419 Pap Smear 4. Exposure to STD Z20.2 CHLAMYDIA TRACHOMATIS (GENITO/STI) Neisseria gonorrhea DNA probe, direct 5. Vaginal discharge N89.8 SURESWAB(R) ADVANCED VAGINITIS PLUS, TMA 6. Upper back pain M54.9 Annual: Patient presents today for an annual exam. Patient states she is doing well and has no complaints. Pap was obtained without difficulty. Complaints of upper back pain--5 point breast exam performed. Breast/Nipples at level of umbilicus and no movement with arm elevation. Has has tried chiropractor for back pain with no improvement. Pre Op: Patient is doing well but has complaints of requesting sterilization. I have discussed conservativemanagement vs. surgical management with the patient in detail and patient desires surgical management at this time. Patient will undergo [facility] assisted Bilateral Laparoscopic Salpingectomy on 08-02-25. Surgical consents were signed, mmc was reviewed, and patient is to proceed to [facility] OR. Follow Up: Patient is to follow up between 1-2 weeks post operative/weight loss to assess proper healing and recovery from procedure. Documented by Sara Bloom LPN on behalf of: Harry Abbasi DO documented in this encounter Plan of Treatment Upcoming Encounters Date Type Department Care Team (Late st Contact Info) Description 08/12/2025 8:30 AM EST Office Visit [facility] [address] [place] [address] Alyssa Bazan PA [address] [place] [address] Scheduled Orders Name Type Priority Associated Diagnoses Orde r Schedule Pap Smear Pathology and Cytology Routine Well woman exam with routine gynecological exam Ordered: 06/27/2025 SUREPRADIP(R) ADVANCED VAGINITIS PLUS, TMA Pathology and Cytology Routine Vaginal discharge Ordered: 06/27/2025 CHLAMYDIA TRACHOMATIS (GENITO/STI) Lab Routine Exposure to STD Ordered: 06/27/2025 Neisseria gonorrhea DNA probe, direct Lab Routine Exposure to STD Ordered: 06/27/2025 documented as of this encounter Visit Diagnoses Diagnosis Pre-op examination Request for sterilization Well woman exam with routine gynecological exam Routine gynecological examination Exposure to STD Vaginal discharge Leukorrhea, not specified as infective Upper back pain Unspecified backache documented in this encounter
--- OUTSIDE RECORDS SUMMARY | 2025-06-27 19:23 | XMS_ITS | CCD ---
Author Organization [facility] Care Team Providers Care Pack Train Driver Name Role Phone BOYDC, DR BEAN Primary [...] Unavailable Reid Jasmine MD Primary Care Provider [phone] MAIA COLÓNIANA Valentín Referring Unavailable SUMMER DAVALOS Primary Care Unavailable SUMMER DAVALOS Attending Unavailable SUMMER DAVALOS Referring Unavailable SUZAN, SUMMER GUTIÉRREZ Primary Care Unavailable KATARZYNA, NIVIA Valentín Attending Unavailable SUMMER DAVALOS Referring Unavailable SUMMER DAVALOS Primary Care Unavailable YIMI BARRAGAN Attending Unavailable KATARZYNA, NIVIA L Referring Unavailable KATARZYNA, NIVIA L Primary Care Unavailable Unavailable Primary Care Provider Unavailabl e Kuns ROOFER-SENIOR DEVOPS ENGINEER, Summer Gutiérrez Primary Care Provider Katarzyna 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, Nivia Valentín Primary Care Provider KATARZYNA, NIVIA Valentín Primary Care Unavailable SARA STEWART Attending Unavailable KATARZYNA, NIVIA L Primary Care Unavailable MARIA DE JESUS, ALYSSA Attending Unavailable AYLEEN, CARMEN Attending Unavailable MARIA DE JESUS, ALYSSA Attending Unavailable MARIA DE JESUS, ALYSSA Attending Unavailable MARIA DE JESUS, ALYSSA Attending Unavailable AYLEEN, CARMEN Attending Unavailable AYLEEN, CARMEN Attending Unavailable MARIA DE JESUS, ALYSSA Attending Unavailable AYLEEN, CARMEN Attending Unavailable ALYSSA PRETTY Attending Unavailable CARMEN ABBASI Attending Unavailable ALYSSA PRETTY Attending Unavailable CARMEN ABBASI Attending Unavailable CARMEN ABBASI Attending Unavailable Allergies Allergy Classification Reported Allergen(s) Allergy Type Date of Onset Reaction(s) Facility (1 source) Ondansetron Drug Allergy [facility] Repository (20 sources) Ondansetron Drug Allergy 12-11-2022 Rash [facility] Work Phone: (6 sources) Ondansetron; Translations: [ONDANSETRON HCL] Drug Allergy 12-11-2022 Rash [facility] Repository Medications Current Medications Medication Drug Class(es) Dates Sig (Normalized) Sig (Original) Calcium Carbonate Antacid (TUMS PO) (20 sources) End: 11-15-2024 Calcium Carbonate Antacid (TUMS PO) Take by mouth 11/15/2024 Discontinued Calcium Carbonat e Antacid (TUMS PO) Take by mouth Active citalopram 20 mg oral tablet (20 sources) Serotonin Reuptake Inhibitor Start: 09-25-2024 End: [...] 1 tablet by mouth in the morning norethindrone-ethin yl estradiol-iron (Lo Loestrin Fe) 1 MG-10 MCG / 10 MCG tablet Indications: Encounter for surveillance of contraceptive pills Take 1 tablet by mouth in the morning. Take 1 tablet by mouth daily. 28 tablet 11 10/26/2023 09/26/2024 Active etonogestrel 68 mg drug implant (4 sources) Progestin Start: 12-17-2024 End: 12-17-2027 etonogestrel-elutin g 68 mg contraceptive implant 1 each fluticasone propionate 0.05 mg/actuat metered dose nasal spray (1 source) Corticosteroid Start: 07-04-2024 take 2 spray(s) nasal route in the morning fluticasone propionate (FLONASE) 50 mcg/actuation nasal spray Administer 2 sprays into each nostril in the morning. 16 g 07/04/2024 Active ibuprofen 800 mg oral tablet (10 sources) Nonsteroidal Anti-inflammatory Drug Start: 11-11-2024 take 1 tablet by mouth every eight hours ibuprofen 800 MG tablet Take 800 mg by mouth every 8 (eight) hours 11/11/2024 Active Start: 07-31-2023 ibuprofen 800 MG tablet Take 800 mg by mouth in the morning and 800 mg at noon and 800 mg in the evening. 0 07/31/2023 Active metroNIDAZOLE 500 mg oral tablet (1 source) Nitroimidazole Antimicrobial Start: 06-27-2025 End: 07-04-2025 take 1 tablet by mouth in the morning metroNIDAZOLE (Flagyl) 500 MG tablet Indications: Vaginal discharge Take 1 tablet (500 mg) by mouth in the morning and 1 tablet (500 mg) before bedtime. Do all this for 7 days. Do not drink alcohol while taking this medication. 14 tablet 06/27/2025 07/04/2025 Active naproxen 500 mg oral tablet (1 source) Nonsteroidal Anti-inflammatory Drug naproxen (Naprosyn) 500 MG tablet every 12 (twelve) hours. 0 Active 21-IRON FU-FOLIC ACID ORAL (1 source) 21-IRON FU-FOLIC ACID ORAL Take by mouth once daily. Active MV-Min-Fe Fum-FA-DHA ( 1 PO) (20 sources) End: 11-15-2024 MV-Min-Fe Fum-FA-DHA ( 1 PO) Take by mouth 11/15/2024 Discontinued MV-Min- Fe Fum-FA-DHA ( 1 PO) Take by mouth Active Completed/Discontinued Medications Medication Drug Class(es) Dates Sig (Normalized) Sig (Original) Ethinyl Estradiol / norgestimate (2 sources) Progestin, Estrogen End: 02-17-2024 take 1 tablet by mouth once in the morning norgestimate-ethiny l estradioL (ORTHO-CYCLEN) 0.25-35 mg-mcg per tablet Take 1 tablet by mouth in the morning. 02/17/2024 Discontinued (Therapy completed) take 1 tablet by once in the morning norgestimate-ethinyl estradioL (ORTHO-CY CLEN) 0.25-35 mg-mcg per tablet Take 1 tablet by mouth in the morning. 0 Active Progesterone (8 sources) Progesterone Start: 04-05-2024 End: 06-28-2024 Progesterone Micronized (pro gesterone, bulk,) powder 04/05/2024 06/28/2024 Discontinued Start: 04-05-2024 Progesterone M icronized (progesterone, bulk,) powder 04/05/2024 Active Problems Active Problems Problem Classification Problem Date Documented Date Episodic/Chronic Anxiety disorders (20 sources) Post-traumatic stress disorder, unspecified; Translations: [Mixed anxiety and depressive disorder] Onset: 12-20-2023 09-25-2024 Chronic Contraceptive and procreative management (9 sources) Encounter for surveillance of implantable subdermal contraceptive; Translations: [Encounter for other general counseling and advice on contraception] Onset: 01-19-2023 Episodic Fever of unknown origin (1 source) Fever Onset: 07-04-2024 Episodic Immunizations and screening for infectious disease (8 sources) Contact with and (suspected) exposure to infections with a predominantly sexual mode of transmission; Translations: [Exposure to sexually transmissible disorder] Onset: 11-16-2022 Episodic Nausea and vomiting (1 source) Vomiting Onset: 07-04-2024 Episodic Open wounds of extremities (1 source) Laceration without foreign body, right lower leg, initial encounter; Translations: [Laceration without foreign body, right lower leg, initial encounter] Onset: 04-04-2025 Episodic Other complications of (2 sources) size does not accord with dates; Translations: [Uterine size-date discrepancy, unspecified trimester] 08-28-2024 Episodic Other female genital disorders (3 sources) Vaginal discharge; Translations: [Other specified noninflammatory disorders of vagina] 05-29-2024 Episodic Other injuries and conditions due to external causes (1 source) Laceration - injury Onset: 04-04-2025 Episodic Other nutritional; endocrine; and metabolic disorders (1 source) Other obesity due to excess calories; Translations: [Other obesity due to excess calories] Onset: 12-20-2023 Chronic Other nutritional; endocrine; and metabolic disorders (1 source) Body mass index (BMI) 37.0-37.9, adult; Translations: [Body mass index (BMI) 37.0-37.9, adult] Onset: 12-20-2023 Chronic Other nutritional; endocrine; and metabolic disorders (1 source) Obesity caused by energy imbalance; Translations: [Other obesity due to excess calories] 12-20-2023 Chronic Other screening for suspected conditions (not mental disorders or infectious disease) (4 sources) Patient encounter status; Translations: [Encounter for screening for diabetes mellitus] 07-30-2024 Episodic Other upper respiratory disease (1 source) Nasal congestion; Translations: [Nasal congestion] Onset: 07-04-2024 Episodic Other upper respiratory disease (2 sources) Nasal congestion; Translations: [Nasal congestion] Onset: 07-04-2024 07-04-2024 Episodic Other upper respiratory infections (3 sources) Acute upper respiratory infection, unspecified; Translations: [Viral upper respiratory tract infection] Onset: 07-04-2024 07-04-2024 Episodic Residual codes; unclassified (2 sources) Gestation period, 24 weeks; Translations: [24 weeks gestation of ] 07-30-2024 Episodic Residual codes; unclassified (2 sources) Gestation period, 28 weeks; Translations: [28 weeks gestation of ] 08-28-2024 Episodic Residual codes; unclassified (2 sources) Gestation period, 30 weeks; Translations: [30 weeks gestation of ] 09-11-2024 Episodic Residual codes; unclassified (2 sources) Gestation period, 35 weeks; Translations: [35 weeks gestation of ] 10-15-2024 Episodic Residual codes; unclassified (2 sources) Gestation period, 37 weeks; Translations: [37 weeks gestation of ] 10-31-2024 Episodic Residual codes; unclassified (2 sources) Gestation period, 38 weeks; Translations: [38 weeks gestation of ] 11-08-2024 Episodic Skin and subcutaneous tissue infections (1 source) Cellulitis of left upper limb; Translations: [CELLULITIS OF LEFT UPPER LIMB] Onset: 01-27-2023 Episodic Spondylosis; intervertebral disc disorders; other back problems (1 source) Backache; Translations: [Dorsalgia, unspecified] 06-27-2025 Episodic Unclassified (2 sources) CONTACT W/AND (SUSP) EXPOS COVID-19; Translations: [CONTACT W/AND (SUSP) EXPOS COVID-19] Onset: 05-17-2022 Unclassified (1 source) Annual Exam Onset: 12-20-2023 Unclassified (1 source) Cold Like Symptoms Onset: 02-08-2025 Unclassified (1 source) Sore Throat, Earache Onset: 02-08-2025 Viral infection (1 source) COVID-19; Translations: [COVID-19] Onset: 05-17-2022 Past or Other Problems Problem Classification Problem Date Documented Da te Episodic/Chronic Mood disorders (3 sources) Mood disorders Onset: 02-17-2024 Resolved: 07-04-2024 02-17-2024 Other aftercare (10 sources) Surgical follow-up; Translations: [Encounter for follow-up examination after completed treatment for conditions other than malignant neoplasm] Onset: 12-12-2024 11-15-2024 Episodic Other and delivery including normal (20 sources) Third trimester ; Translations: [Encounter for supervision of normal , unspecified, third trimester] Onset: 09-25-2024 Resolved: 11-09-2024 08-28-2024 Episodic Residual codes; unclassified (20 sources) Gestation period, 32 weeks; Translations: [32 weeks gestation of ] Onset: 09-25-2024 Resolved: 11-09-2024 09-25-2024 Episodic Residual codes; unclassified (2 sources) Gestation period, 15 weeks; Translations: [15 weeks gestation of ] 05-29-2024 Episodic Residual codes; unclassified (20 sources) Gestation period, 36 weeks; Translations: [36 weeks gestation of ] Onset: 10-22-2024 Resolved: 11-09-2024 10-22-2024 Episodic Spontaneous (4 sources) Complete or unspecified spontaneous without complication; Translations: [Miscarriage] Onset: 02-17-2024 02-17-2024 Episodic Unclassified (1 source) CONTACT W/AND (SUSP) EXPOS COVID-19; Translations: [CONTACT W/AND (SUSP) EXPOS COVID-19] Onset: 05-07-2022 Unclassified (3 sources) Onset: 09-14-2023 09-14-2023 Results Test Name Value Interpretation Reference Range Facility POCT RAPID STREP Aon 025 S. pyogenes Ag IA Ql (Unsp spec) Positive Abnormal Negative [facility] Comment on above: Performed By: #### N SAS #### [facility] ([facility]) [address] [place] [id number] VIR SARS/FLU A+B/RSV BY NAAT/MOL ECULAR (M4RT COLLECTION TUBE)on 02-08-2025 SARS/FLU A+B/RSV BY NAAT/MOLECULAR (M4RT COLLECTION TUBE) FLU A PCR Negative FLU B PCR Negative RSV BY PCR Negative SARS COV 2 BY PCR Not Detected Normal Not Detected [facility] Comment on above: Order Comment: The [employer] Xpress SARS-CoV-2/Flu/RSV Plus test is a rapid, multiplexed real-time RT-PCR test intended for the simultaneous qualitative detection and differentiation of SARS-CoV-2, influenza A, influenza B and respiratory syncytial virus (RSV) viral RNA from individuals suspected of respiratory viral infection consistent with COVID-19 by Their healthcare provider. This test has not been validated in asymptomatic patients. The Xpert Xpress SARS-CoV-2 test is intended for use by qualified and trained operators who are performing tests using either [employer] or [employer] systems and is limited to laboratories that meet the CLIA requirements to perform high and moderate complexity tests. The Xpert Xpress SARS-CoV-2/Flu/RSV Plus is only for use under the Food and Drug Administration's Emergency Use Authorization. Results are for the simultaneous detection and differentiation of SARS-CoV-2, influenza A, influenza B and RSV nucleic acids in clinical specimens. SARS-CoV-2, influenza A, influenza B and RSV RNA identified by this test are generally detectable in upper respiratory samples during the acute phase of infection. Positive results are Indicative of the presence of the identified virus, but do not rule out bacterial infection or co-infection with other pathogens not detected by this test. Clinical correlation with patient history and other diagnostic information is necessary to determine patient infection status. The agent detected may not be the definite cause of disease. Negative results do not preclude SARS-CoV-2, influenza A, influenza B and RSV infection and should not be used as the sole basis for treatment or other patient management decisions. Negative results must be combined with clinical observations, patient history and epidemiological information. An Invalid result may occur with specimen-associated inhibition unable to be resolved with specimen repeat. Fact Sheet for Healthcare Providers: https://www.fda.gov/media/926877/download Fact Sheet for Patients: https://www.fda.gov/media/895351/download Performed By: #### C OVFLR #### [facility] ([address] ALL CBC WITH AUTO DIFFon BASOPHILS ABSOLUTE AUTO 0 [facility] Basophils/100 WBC (Bld) 0.3 % 0.2 - 2.0 % [facility] Eosinophils/100 WBC (Bld) 0.3 % Low 0.9 - 7.0 % [facility] Erythrocyte distribution width (RBC) [Ratio] 14.4 % 11.0 - 15.0 % [facility] Hematocrit (Bld) [Volume fraction] 26.5 % Low 36.0 - 48.0 % [facility] Hemoglobin (Bld) [Mass/Vol] 8.8 g/dL Low 12.0 - 16.0 g/dL [facility] IMMATURE GRANULOCYTES ABS AUTO 0.06 High [facility] Immature granulocytes/100 WBC (Bld) 0.5 % 0.0 - 0.5 % [facility] Interpretation and review of laboratory results Abnormal [facility] LYMPHOCYTES ABSOLUTE AUTO 2.3 [facility] Lymphocytes/100 WBC (Bld) 19.6 % Low 20.5 - 60.0 % [facility] MCH (RBC) [Entitic mass] 28.4 pg 26.7 - 34.0 pg [facility] MCHC (RBC) [Mass/Vol] 33.2 g/dL 29.9 - 35.2 g/dL [facility] MCV (RBC) [Entitic vol] 85.5 fL 81.0 - 99.0 fL [facility] MONOCYTES ABSOLUTE AUTO 1.1 High [facility] Monocytes/100 WBC (Bld) 9.1 % 1.7 - 12.0 % [facility] NEUTROPHILS ABSOLUTE AUTO 8.2 High [facility] Neutrophils/100 WBC (Bld) 70.2 % 43.0 - 75.0 % [facility] Platelet mean volume (Bld) [Entitic vol] 10.5 fL 9.5 - 13.5 fL [facility] TB EO # 0 [facility] PLT 215 [facility] RBC 3.1 Low [facility] WBC 11.7 High [facility] ALL CBC WITH AUTO DIFFon BASOPHILS ABSOLUTE AUTO 0 [facility] Basophils/100 WBC (Bld) 0.4 % 0.2 - 2.0 % [facility] Eosinophils/100 WBC (Bld) 1.5 % 0.9 - 7.0 % [facility] Erythrocyte distribution width (RBC) [Ratio] 14.2 % 11.0 - 15.0 % [facility] Hematocrit (Bld) [Volume fraction] 32.1 % Low 36.0 - 48.0 % [facility] Hemoglobin (Bld) [Mass/Vol] 10.8 g/dL Low 12.0 - 16.0 g/dL [facility] IMMATURE GRANULOCYTES ABS AUTO 0.03 [facility] Immature granulocytes/100 WBC (Bld) 0.4 % 0.0 - 0.5 % [facility] Interpretation and review of laboratory results Abnormal [facility] LYMPHOCYTES ABSOLUTE AUTO 2 [facility] Lymphocytes/100 WBC (Bld) 27.6 % 20.5 - 60.0 % [facility] MCH (RBC) [Entitic mass] 28.5 pg 26.7 - 34.0 pg [facility] MCHC (RBC) [Mass/Vol] 33.6 g/dL 29.9 - 35.2 g/dL [facility] MCV (RBC) [Entitic vol] 84.7 fL 81.0 - 99.0 fL [facility] MONOCYTES ABSOLUTE AUTO 0.7 [facility] Monocytes/100 WBC (Bld) 10 % 1.7 - 12.0 % [facility] NEUTROPHILS ABSOLUTE AUTO 4.3 [facility] Neutrophils/100 WBC (Bld) 60.1 % 43.0 - 75.0 % [facility] Platelet mean volume (Bld) [Entitic vol] 10.7 fL 9.5 - 13.5 fL [facility] EO # 0.1 [facility] PLT 226 [facility] RBC 3.79 Low [facility] WBC 7.2 [facility] Urinalysis macro (dipstick) panel (U)on 11-08-2024 Bilirubin, UA Negative Negative - 4(70) +++ mg/dL [facility] Blood, UA Negative Negative - 50 Jaguar/mcL [facility] Clarity, UA Clear [facility] Color, UA Yellow [facility] Glucose, UA Negative Negative - 1999(110) ++++ mg/dL [facility] Interpretation and review of laboratory results Abnormal [facility] Ketones, UA Negative Negative - 160(16) ++++ mg/dL [facility] Leukocytes, UA Trace Negative - 500+++ Lizeth/mcL [facility] Nitrite, UA Negative Negative - Positive [facility] pH, UA 7 5 - 9 [facility] Protein, UA Positive Negative - 1999(20) ++++ mg/dL [facility] Comment on above: 30 Spec Grav, UA 1.025 1 - 1.03 [facility] Urobilinogen, UA 1.0 0.2 - 12 mg/dL [facility] Urinalysis macro (dipstick) panel (U)on 10-31-2024 Bilirubin, UA Negative Negative - 4(70) +++ mg/dL [facility] Blood, UA Negative Negative - 50 Jaguar/mcL [facility] Clarity, UA Clear [facility] Color, UA Yellow [facility] Glucose, UA Negative Negative - 1999(110) ++++ mg/dL [facility] Interpretation and review of laboratory results Abnormal [facility] Ketones, UA Negative Negative - 160(16) ++++ mg/dL [facility] Leukocytes, UA Trace Negative - 500+++ Lizeth/mcL [facility] Nitrite, UA Negative Negative - Positive [facility] pH, UA 6.5 5 - 9 [facility] Protein, UA Trace Negative - 1999(20) ++++ mg/dL [facility] Spec Grav, UA 1.03 1 - 1.03 [facility] Urobilinogen, UA 0.2 0.2 - 12 mg/dL [facility] ALL MISCELLANEOUS TESTon MISCELLANEOUS TEST COMMENT . [facility] Comment on above: Test Ordered: [id number] Strep Gp B Culture+Rflx Strep Gp B Culture+Rflx Negative CB Reference Range: Negative Centers for Disease Control and Prevention (CDC) and [place] [employer] Obstetricians and Gynecologists (ACOG) guidelines [...] resistance to clindamycin is noted. Performed at: [facility] Lab[address] [id number] Acid Painter: Ender Win PhD, Phone: [phone] GROUP B STREP [id number] Group B Streptococcus Colonization Detection [facility] macro (dipstick) panel (U)on 10-22-2024 Bilirubin, UA Negative Negative - 4(70) +++ mg/dL [facility] Blood, UA Negative Negative - 50 Jaguar/mcL [facility] Clarity, UA Clear [facility] Color, UA Yellow [facility] Glucose, UA Negative Negative - 1999(110) ++++ mg/dL [facility] Interpretation and review of laboratory results Abnormal [facility] Ketones, UA Negative Negative - 160(16) ++++ mg/dL [facility] Leukocytes, UA Positive Negative - 500+++ Lizeth/mcL [facility] Comment on above: small Nitrite, UA Negative Negative - Positive [facility] pH, UA 8.5 5 - 9 [facility] Protein, UA Positive Negative - 1999(20) ++++ mg/dL [facility] Comment on above: 30 Spec Grav, UA 1.02 1 - 1.03 [facility] Urobilinogen, UA 0.2 0.2 - 12 mg/dL [facility] Urinalysis macro (dipstick) panel (U)on 10-15-2024 Bilirubin, UA Negative Negative - 4(70) +++ mg/dL [facility] Blood, UA Negative Negative - 50 Jaguar/mcL [facility] Clarity, UA Clear [facility] Color, UA Yellow [facility] Glucose, UA Negative Negative - 1999(110) ++++ mg/dL [facility] Interpretation and review of laboratory results Normal [facility] Ketones, UA Negative Negative - 160(16) ++++ mg/dL [facility] Leukocytes, UA Negative Negative - 500+++ Lizeth/mcL [facility] Nitrite, UA Negative Negative - Positive [facility] pH, UA 7 5 - 9 [facility] Protein, UA Negative Negative - 1999(20) ++++ mg/dL [facility] Spec Grav, UA 1.02 1 - 1.03 [facility] Urobilinogen, UA 1.0 0.2 - 12 mg/dL [facility] Urinalysis macro (dipstick) panel (U)on 09-25-2024 Bilirubin, UA Negative Negative - 4(70) +++ mg/dL [facility] Blood, UA Negative Negative - 50 Jaguar/mcL [facility] Healthcare Clarity, UA Clear [facility] Color, UA Yellow [facility] Glucose, UA Negative Negative - 1999(110) ++++ mg/dL [facility] Interpretation and review of laboratory results Normal [facility] Ketones, UA Negative Negative - 160(16) ++++ mg/dL [facility] Leukocytes, UA Negative Negative - 500+++ Lizeth/mcL [facility] Nitrite, UA Negative Negative - Positive [facility] pH, UA 7 5 - 9 [facility] Protein, UA Negative Negative - 1999(20) ++++ mg/dL [facility] Spec Grav, UA 1.01 1 - 1.03 [facility] Urobilinogen, UA 0.2 0.2 - 12 mg/dL [facility] Urinalysis macro (dipstick) panel (U)on 09-11-2024 Bilirubin, UA Negative Negative - 4(70) +++ mg/dL [facility] Blood, UA Negative Negative - 50 Jaguar/mcL [facility] Healthcare Clarity, UA Clear [facility] Color, UA Yellow [facility] Glucose, UA Negative Negative - 1999(110) ++++ mg/dL [facility] Interpretation and review of laboratory results Normal [facility] Ketones, UA Negative Negative - 160(16) ++++ mg/dL [facility] Leukocytes, UA Negative Negative - 500+++ Lizeth/mcL [facility] Nitrite, UA Negative Negative - Positive [facility] pH, UA 5.5 5 - 9 [facility] Protein, UA Negative Negative - 1999(20) ++++ mg/dL [facility] Spec Grav, UA 1.02 1 - 1.03 [facility] Urobilinogen, UA 1.0 0.2 - 12 mg/dL [facility] Urinalysis macro (dipstick) panel (U)on 08-28-2024 Bilirubin, UA Negative Negative - 4(70) +++ mg/dL [facility] Care Blood, UA Negative Negative - 50 Jaguar/mcL [facility] Healthcare Clarity, UA Clear [facility] Color, UA Light Yellow [facility] Glucose, UA Negative Negative - 1999(110) ++++ mg/dL [facility] Interpretation and review of laboratory results Normal [facility] Ketones, UA Negative Negative - 160(16) ++++ mg/dL [facility] Leukocytes, UA Negative Negative - 500+++ Lizeth/mcL [facility] Nitrite, UA Negative Negative - Positive [facility] pH, UA 5.5 5 - 9 [facility] Protein, UA Negative Negative - 1999(20) ++++ mg/dL [facility] Spec Grav, UA 1.015 1 - 1.03 [facility] Urobilinogen, UA 1.0 0.2 - 12 mg/dL [facility] Urinalysis macro (dipstick) panel (U)on 07-30-2024 Bilirubin, UA Negative Negative - 4(70) +++ mg/dL [facility] Blood, UA Negative Negative - 50 Jaguar/mcL [facility] Healthcare Clarity, UA Clear [facility] Color, UA Yellow [facility] Glucose, UA Negative Negative - 1999(110) ++++ mg/dL [facility] Interpretation and review of laboratory results Normal [facility] Ketones, UA Negative Negative - 160(16) ++++ mg/dL [facility] Leukocytes, UA Negative Negative - 500+++ Lizeth/mcL [facility] Nitrite, UA Negative Negative - Positive [facility] pH, UA 6.5 5 - 9 [facility] Protein, UA Negative Negative - 1999(20) ++++ mg/dL [facility] Spec Grav, UA 1.015 1 - 1.03 [facility] Urobilinogen, UA 0.2 0.2 - 12 mg/dL [facility] POCT Influenza A/Influenza B /S[facility]-COV-2 [facility] External Poct Influenza A Antigen Negative [facility] External Poct Influenza B Antigen Negative [facility] SARS-CoV-2 (COVID-19) Ag IA.rapid Ql (Resp) Negative [facility] Urinalysis macro (dipstick) panel (U)on 06-28-2024 Bilirubin, UA Positive Negative - 4(70) +++ mg/dL [facility] Comment on above: small Blood, UA Negative Negative - 50 Jaguar/mcL [facility] Clarity, UA Clear [facility] Color, UA Yellow [facility] Glucose, UA Negative Negative - 2000(110) ++++ mg/dL [facility] Interpretation and review of laboratory results Abnormal [facility] Ketones, UA Positive Negative - 160(16) ++++ mg/dL [facility] Comment on above: 15 Leukocytes, UA Negative Negative - 500+++ Lizeth/mcL [facility] Nitrite, UA Negative Negative - Positive [facility] pH, UA 5.5 5 - 9 [facility] Protein, UA Trace Negative - 2000(20) ++++ mg/dL [facility] Spec Grav, UA 1.030 1 - 1.03 [facility] Urobilinogen, UA 0.2 0.2 - 12 mg/dL [facility] AFP, SERUM, OPEN SPINA BIFID Aon 05-31-2024 AFP MOM 1.17 . [facility] AFP VALUE 27.6 ng/mL . [facility] COMMENT: Comment . [facility] Comment on above: Vandana Nina , Ph.D., [facility] Director References: Available Upon Request. Multiples Of Median Cutoffs For AFP Elevations Rodriguez 2.5 Black 2.8 IDD 2.0 Twins 4.5 Abbreviation Definitions IDD - Insulin Dep Diabetes OSBR - Open Spina Bifida Risk For further inquiries contact [facility] at [phone]. This test was developed and its performance characteristics determined by [employer]. It has not been cleared or approved by the Food and Drug Administration. Performed at: [facility] [place], [place] [id number] Acid Painter: Prashant Phoenix [facility], Phone: [phone] GEST. AGE ON COLLECTION DATE 15.6 . weeks [facility] GESTAT. AGE BASED ON Ultrasound . [facility] Comment on above: 15.6 on 05/29/2024 Recalculations are not recommended when gestational dating by LMP and ultrasound are within 10 days. INSULIN DEP DIABETES No . [facility] INTERPRETATION Comment . [facility] Comment on above: Interpretation: Scre en Negative [...] Customer Services to discuss available options. The [employer] recommends amniocentesis be offered to women age 35 and older. [age] [facility] MULTIPLE GESTATION No . [facility] OSBR RISK 1 IN 7137 . [facility] RACE . [facility] RESULTS Report . [facility] TEST RESULTS: Negative . [facility] WEIGHT 249 . lbs [facility] N N ULTRASOUND [id number] [phone] 15 N 1 Y 249 N N N N N White/ [facility] URETHRITIS/DISCHARGE PLUS VA GINITIS (HTRX)on 05-30-2024 ATOPOBIUM VAGINAE 0.000 [facility] ATOPOBIUM VAGINAE Not detected [facility] BVAB 2,3 (BACTERIAL VAGINOSIS ASSOCIATED BACTERIA 2, 3); MOBILUNCUS SPP 0.000 [facility] BVAB 2,3 (BACTERIAL VAGINOSIS ASSOCIATED BACTERIA 2, 3); MOBILUNCUS SPP Not detected [facility] JENNY ALBICANS, PARAPSILOSIS, TROPICALIS 0.000 [facility] JENNY ALBICANS, PARAPSILOSIS, TROPICALIS Not detected [facility] JENNY GLABRATA 0.000 [facility] JENNY GLABRATA Not detected [facility] JENNY KRUSEI 0.000 [facility] JENNY KRUSEI Not detected [facility] CHLAMYDIA TRACHOMATIS 0.000 [facility] CHLAMYDIA TRACHOMATIS Not detected [facility] GARDNERELLA VAGINALIS 0.000 [facility] GARDNERELLA VAGINALIS Not detected [facility] MEGASPHAERA (TYPES 1, 2) 0.000 [facility] MEGASPHAERA (TYPES 1, 2) Not detected [facility] MYCOPLASMA GENITALIUM 0.000 [facility] MYCOPLASMA GENITALIUM Not detected [facility] NEISSERIA GONORRHOEAE 0.000 [facility] NEISSERIA GONORRHOEAE Not detected [facility] TRICHOMONAS VAGINALIS 0.000 [facility] TRICHOMONAS VAGINALIS Not detected [facility] Cytology Cervical or vaginal smear or scraping studyon 05-29-2024 [facility] Urinalysis macro (dipstick) panel (U)on 05-29-2024 Bilirubin, UA Negative Negative - 4(70) +++ mg/dL [facility] Blood, UA Negative Negative - 50 Jaguar/mcL [facility] Clarity, UA Clear [facility] Color, UA Karen [facility] Glucose, UA Negative Negative - 1999(110) ++++ mg/dL [facility] Interpretation and review of laboratory results Normal [facility] Ketones, UA Negative Negative - 160(16) ++++ mg/dL [facility] Leukocytes, UA Negative Negative - 500+++ Lizeth/mcL [facility] Nitrite, UA Negative Negative - Positive [facility] pH, UA 7.0 5 - 9 [facility] Protein, UA Negative Negative - 1999(20) ++++ mg/dL [facility] Spec Grav, UA 1.010 1 - 1.03 [facility] Urobilinogen, UA 0.2 0.2 - 12 mg/dL [facility] CBC AND AUTO DIFFon 02-17-20 24 ABSOLUTE BASOPHIL 0.2 X10E9/L Normal 0.0-0.2 [facility] Comment on above: Performed By: #### C AFTAB, FEPR, 6-4 #### [facility] ([id number]) [address], [address] [place] [address] ABSOLUTE NEUTROPHIL 3.1 X10E9/L Normal 1.5-6.6 [facility] Comment on above: Performed By: #### C BCA, FEPR, 2276-4 #### [facility] ([id number]) [address] [place] [address] Basophils/100 WBC (Bld) 3.0 % Normal [facility] Comment on above: Performed By: #### C BCA, FEPR, 6-4 #### [facility] ([id number]) [address] [place] [address] Eosinophils (Bld) [#/Vol] 0.2 10*3/uL Normal 0.0-0.4 [facility] Comment on above: Performed By: #### C AFTAB, FEPR, 2275-4 #### [facility] ([id number]) [address] [place] [address] Eosinophils/100 WBC (Bld) 3.4 % Normal [facility] Comment on above: Performed By: #### C AFTAB, FEPR, 2275-4 #### [facility] ([id number]) [address] [place] [address] Erythrocyte distribution width (RBC) [Ratio] 13.3 % Normal 11.5-15.0 [facility] Comment on above: Performed By: #### C AFTAB, FEPR, 2275-4 #### [facility] ([id number]) [address] [place] [address] Hematocrit (Bld) [Volume fraction] 40.3 % Normal 35-47 [facility] Comment on above: Performed By: #### Terri BCA, FEPR, 4 #### [facility] ([id number]) [address] [place] [address] Hemoglobin (Bld) [Mass/Vol] 13.8 g/dL Normal 11.7-15.5 [facility] Comment on above: Performed By: #### C BCA, FEPR, 2275-4 #### [facility] ([id number]) [address] [address] [place] [address] Lymphocytes (Bld) [#/Vol] 2.1 10*3/uL Normal 1.0-3.5 [facility] Comment on above: Performed By: #### Terri BCA, FEPR, 2275-4 #### [facility] ([id number]) [address] [address] [place] [address] Lymphocytes/100 WBC (Bld) 35.1 % Normal [facility] Comment on above: Performed By: #### AMBER Murray BCA, 2276-01 #### [facility] ([id number]) [address] [place] [address] MCH (RBC) [Entitic mass] 29.0 pg Normal 27-34 [facility] Comment on above: Performed By: #### Terri UGALDE FEPR, 2276-01 #### [facility] ([id number]) [address], [address] [place] [address] MCHC (RBC) [Mass/Vol] 34.2 g/dL Normal 32-36 [facility] Comment on above: Performed By: #### Terri UGALDE FEPR, 2275- #### [facility] ([id number]) [address], [address] [place] [address] MCV (RBC) [Entitic vol] 85 fL Normal 80-100 [facility] Comment on above: Performed By: #### Terri UGALDE, FEPR, 2276-01 #### [facility] ([id number]) [address], [address] [place] [address] Monocytes (Bld) [#/Vol] 0.5 10*3/uL Normal 0-0.9 [facility] Comment on above: Performed By: #### Terri UGALDE FEPR, 2276-01 #### [facility] ([id number]) [address], [address] [place] [address] Monocytes/100 WBC (Bld) 7.5 % Normal [facility] Comment on above: Performed By: #### Terri UGALDE, FEPR, 2276-01 #### [facility] ([id number]) [address], [address] [place] [address] Neutrophils/100 WBC (Bld) 51.0 % Normal [facility] Comment on above: Performed By: #### Terri UGALDE, FEPR, 6-4 #### [facility] ([id number]) [address] [place] [address] Platelet mean volume (Bld) [Entitic vol] 8.8 fL Normal 7-12 [facility] Comment on above: Performed By: #### Terri UGALDE, FEPR, 6-4 #### [facility] ([id number]) [address] [place] [address] Platelets (Bld) [#/Vol] 272 10*3/uL Normal 150-450 [facility] Comment on above: Performed By: #### Terri UGALDE, FEPR, 2275-4 #### [facility] ([id number]) [address] [address] [address] [place] [address] RBC COUNT 4.75 X10E12/L Normal 3.80-5.20 [facility] Comment on above: Performed By: #### Terri UGALDE, FEPR, 6-4 #### [facility] ([id number]) [address], [address] [address] WBC (Bld) [#/Vol] 6.1 10*3/uL Normal 4.0-11.0 [facility] Comment on above: Performed By: #### Terri BCA, FEPR, 6-4 #### [facility] ([id number]) [address] [place] [address] CBC auto differentialon 05-1 0-2023 Basophils (Bld) [#/Vol] 0.2 10*3/uL [facility] Basophils/100 WBC (Bld) 3.0 % [facility] Eosinophils (Bld) [#/Vol] 0.2 10*3/uL [facility] Eosinophils/100 WBC (Bld) 3.4 % [facility] Erythrocyte distribution width (RBC) [Ratio] 13.3 % 11.5 - 15.0 % [facility] Hematocrit (Bld) [Volume fraction] 40.3 % 35 - 47 % [facility] Hemoglobin (Bld) [Mass/Vol] 13.8 g/dL 11.7 - 15.5 g/dL [facility] Lymphocytes (Bld) [#/Vol] 2.1 10*3/uL [facility] Lymphocytes/100 WBC (Bld) 35.1 % [facility] MCH (RBC) [Entitic mass] 29.0 pg 27 - 34 pg [facility] MCHC (RBC) [Mass/Vol] 34.2 g/dL 32 - 36 g/dL [facility] MCV (RBC) [Entitic vol] 85 fL 80 - 100 fL [facility] Monocytes (Bld) [#/Vol] 0.5 10*3/uL [facility] Monocytes/100 WBC (Bld) 7.5 % [facility] Neutrophils (Bld) [#/Vol] 3.1 10*3/uL [facility] Neutrophils/100 WBC (Bld) 51.0 % [facility] Platelet mean volume (Bld) [Entitic vol] 8.8 fL 7 - 12 fL [facility] Platelets (Bld) [#/Vol] 272 10*3/uL [facility] RBC (Bld) [#/Vol] 4.75 10*6/uL [facility] WBC corrected for nucl RBC Auto (Bld) [#/Vol] 6.1 [facility] FERRITINon 02-17-2024 Ferritin [Mass/Vol] 50 ng/mL Normal 11-307 [facility] Comment on above: Performed By: #### C BCA, FEPR, 2276-4 #### [facility] ([id number]) [address], [address] [place] [address] Ferritinon 02-17-2024 Ferritin [Mass/Vol] 50 ng/mL 11 - 307 ng/mL [facility] Ferritin [Mass/Vol]on 2023 [facility] IRON PROFILEon 02-17-2024 Iron [Mass/Vol] 59 ug/dL Normal 50-170 [facility] Comment on above: Performed By: #### C BCA, FEPR, 2276-4 #### [facility] ([id number]) [address], [address] [place] [address] IRON BINDING 384 ug/dL Normal 250-425 [facility] Comment on above: Performed By: #### C BCA, FEPR, 2276-4 #### [facility] ([id number]) [address], [address] [place] [address] IRON SATURATION 15 % SATURATION Normal 15-50 [facility] Comment on above: Performed By: #### C BCA, FEPR, 2276-4 #### [facility] ([id number]) [address] [place] [address] Iron and TIBCon 02-17-2024 Iron [Mass/Vol] 59 ug/dL 50 - 170 ug/dL [facility] Iron binding capacity [Mass/Vol] 384 ug/dL 250 - 425 ug/dL [facility] Iron saturation [Mass fraction] 15 [facility] PREG QUANT HCGon 024 HCG QUANTITATIVE <1 mIU/mL [facility] Comment on above: 5-50 0.2-1 WEEK 50-500 1-2 WEEKS 100-5,000 2-3 WEEKS 500-10,000 3-4 WEEKS 1,000-50,000 4-5 WEEKS 10,000-100,000 5-6 WEEKS 15,000-200,000 6-8 WEEKS 10,000-100,000 2-3 MONTHS [facility] CBC AUTO DIFFon 01-19-2023 BASO # 0.1 103/ul Normal 0.0-0.1 [facility] Comment on above: Performed By: #### C BC #### [facility] [address] [address] [address] Kristie Marrero Basophils/100 WBC (Bld) 0.5 % Normal 0.2-2.0 [facility] Comment on above: Performed By: #### C BC #### [facility] [address] [address] [address] Kristie Marrero EO # 0.2 103/ul Normal 0.0-0.7 [facility] Comment on above: Performed By: #### C BC #### [facility] [address] [place] [address] Dr. Kristie Marrero Eosinophils/100 WBC (Bld) 2.0 % Normal 0.9-7.0 [facility] Comment on above: Performed By: #### C BC #### [facility] [address] [place] [address] Dr. Kristie Marrero Erythrocyte distribution width (RBC) [Ratio] 12.0 % Normal 11.0-15.0 [facility] Comment on above: Performed By: #### C BC #### [facility] [address] [place] [address] Dr. Kristie Marrero Hematocrit (Bld) [Volume fraction] 38.0 % Normal 36.0-48.0 [facility] Comment on above: Performed By: #### C BC #### [facility] [address] [place] [address] Dr. Kristie Marrero Hemoglobin (Bld) [Mass/Vol] 13.3 g/dL Normal 12.0-16.0 [facility] Comment on above: Performed By: #### C BC #### [facility] [address] [place] [address] Dr. Kristie Marrero IG # 0.04 10e3/ul Critically high 0.00-0.03 [facility] Comment on above: Performed By: #### C BC #### [facility] [address] [place] [address] Dr. Kristie Marrero IG % 0.4 % Normal 0.0-0.5 [facility] Comment on above: Performed By: #### C BC #### [facility] [address] [place] [address] Dr. Kristie Marrero LYMPH # 1.3 103/ul Normal 1.2-3.8 [facility] Comment on above: Performed By: #### C BC #### [facility] [address] [address] [address] Kristie Marrero Lymphocytes/100 WBC (Bld) 12.3 % Critically low 20.5-60.0 [facility] Comment on above: Performed By: #### C BC #### [facility] [address] [place] [address] Dr. Kristie Marrero MANUAL DIFF REQ NO Normal [facility] Comment on above: Performed By: #### C BC #### [facility] [address] [place] [address] Dr. Kristie Marrero MCH (RBC) [Entitic mass] 29.2 pg Normal 26.7-34.0 [facility] Comment on above: Performed By: #### C BC #### [facility] [address] [place] [address] Dr. Kristie Marrero MCHC (RBC) [Mass/Vol] 35.0 g/dL Normal 29.9-35.2 [facility] Comment on above: Performed By: #### C BC #### [facility] [address] [place] [address] Dr. Kristie Marrero MCV (RBC) [Entitic vol] 83.3 fL Normal 81.0-99.0 [facility] Comment on above: Performed By: #### C BC #### [facility] [address] [place] [address] Dr. Kristie Marrero MONO # 0.7 103/ul Normal 0.3-0.8 [facility] Comment on above: Performed By: #### C BC #### [facility] [address] [place] [address] Dr. Kristie Marrero Monocytes/100 WBC (Bld) 7.0 % Normal 1.7-12.0 [facility] Comment on above: Performed By: #### C BC #### [facility] [address] [place] [address] Dr. Kristie Marrero NEUT # 8.2 103/ul Critically high 1.4-6.5 [facility] Comment on above: Performed By: #### C BC #### [facility] [address] [place] [address] Dr. Kristie Marrero Neutrophils/100 WBC (Bld) 77.8 % Critically high 43.0-75.0 [facility] Comment on above: Performed By: #### C BC #### [facility] [address] [place] [address] Dr. Kristie Marrero Platelet mean volume (Bld) [Entitic vol] 9.5 fL Normal 9.5-13.5 [facility] Comment on above: Performed By: #### C BC #### [facility] [address] [place] [address] Dr. Kristie Marrero PLT 265 103/ul Normal 150-450 [facility] Comment on above: Performed By: #### C BC #### [facility] [address] [place] [address] Dr. Kristie Marrero RBC 4.56 106/ul Normal 4.20-5.40 [facility] Comment on above: Performed By: #### C BC #### [facility] [address] [place] [address] Dr. Kristie Marrero WBC 10.5 103/ul Normal 4.0-11.0 [facility] Comment on above: Performed By: #### C BC #### [facility] [address] [place] [address] Dr. Kristie Marrero PREG HCG QUALon 01-19-2023 , QUAL Negative Normal NEGATIVE [facility] Comment on above: Performed By: #### P REG #### [facility] [address] [place] [address] Dr. Kristie Marrero CHLAMYDIA/GONOCOCCUS RADHA ( AB/URINE/PAPon 11-19-2022 Chlamydia trachomatis, RADHA Negative Normal Negative [facility] Comment on above: Performed By: #### C T/NGNA #### [facility] [address] [place] [address] Dr. Kristie Marrero Neisseria gonorrhoeae, RADHA Negative Normal Negative [facility] Comment on above: Performed By: #### C T/NGNA #### [facility] [address] [place] [address] Dr. Kristie Marrero VAGINITIS/VAGINOSIS DNA PROB Syed 11-18-2022 Jneny species Negative Normal Negative [facility] Comment on above: Performed By: #### V AGINT #### [facility] [address] [address] [address] Kristie Marrero Gardnerella vaginalis Positive Abnormal Negative [facility] Comment on above: Performed By: #### V AGINT #### [facility] [address] [address] [address] Kristie Marrero Trichomonas vaginalis Negative Normal Negative [facility] Comment on above: Performed By: #### V AGINT #### [facility] [address] [address] [address] Kristie Marrero [facility] SARS-CoV-2 (COVID-19) RNA RADHA+probe Ql (Unsp spec) Detected Critically abnormal NOT DETECTED [facility] Comment on above: Result Comment: This test is not yet approved or cleared by the [place] FDA. When there are no FDA-approved or cleared tests available, and other criteria are met, FDA can make tests available under an emergency access mechanism called an Emergency Use Authorization (EUA). The EUA for this test is supported by the [employer] Health and Human Service's (HHS's) declaration [...] used). Performed By: #### C VDTBH #### [facility] [address] [address] [address] Kristie Marrero Vital Signs Date Time Vital Sign Value Performing Clinician Facility 06-27-2025 10:47-0400 Body mass index (BMI) [Ratio] 42.91 kg/m2 [employer] Work Phone: [facility] 06-27-2025 10:47-0400 Body weight 124.29 kg [employer] Work Phone: [facility] 06-27-2025 10:47-0400 Diastolic blood pressure 70 mm[Hg] Carmen Ayleen DO Work Phone: [facility] 06-27-2025 10:47-0400 Systolic blood pressure 100 mm[Hg] Carmen Ayleen DO Work Phone: [facility] 05-27-2025 10:08-0400 Body mass index (BMI) [Ratio] 42.52 kg/m2 Carmen Ayleen DO Work Phone: [facility] 05-27-2025 10:08-0400 Body weight 123.15 kg Carmen Ayleen DO Work Phone: [facility] 05-27-2025 10:08-0400 Diastolic blood pressure 84 mm[Hg] Carmen Ayleen DO Work Phone: [facility] 05-27-2025 10:08-0400 Systolic blood pressure 126 mm[Hg] Carmen Ayleen DO Work Phone: [facility] 12-12-2024 14:52-0500 Body mass index (BMI) [Ratio] 39.33 kg/m2 Alyssa Maria De Jesus PA Work Phone: [facility] 12-12-2024 14:52-0500 Body weight 113.91 kg Alyssa Greeley PA Work Phone: [facility] 12-12-2024 14:52-0500 Diastolic blood pressure 70 mm[Hg] Alyssa Maria De Jesus PA Work Phone: [facility] 12-12-2024 14:52-0500 Systolic blood pressure 114 mm[Hg] Alyssa Maria De Jesus PA Work Phone: [facility] 11-15-2024 13:21-0500 Body mass index (BMI) [Ratio] 38.86 kg/m2 Alyssa Maria De Jesus PA Work Phone: [facility] 11-15-2024 13:21-0500 Body weight 112.55 kg Alyssa Greeley PA Work Phone: [facility] 11-15-2024 13:21-0500 Diastolic blood pressure 78 mm[Hg] Alyssa Maria De Jesus PA Work Phone: [facility] 11-15-2024 13:21-0500 Systolic blood pressure 120 mm[Hg] Alyssa Maria De Jesus PA Work Phone: [facility] 11-08-2024 11:24-0500 Body mass index (BMI) [Ratio] 41.04 kg/m2 Carmen Ayleen DO Work Phone: [facility] 11-08-2024 11:24-0500 Body weight 118.84 kg Carmen Ayleen DO Work Phone: [facility] 11-08-2024 11:24-0500 Diastolic blood pressure 72 mm[Hg] Carmen Ayleen DO Work Phone: [facility] 11-08-2024 11:24-0500 Systolic blood pressure 122 mm[Hg] Carmen Ayleen DO Work Phone: [facility] 10-31-2024 13:20-0500 Body mass index (BMI) [Ratio] 41 kg/m2 Alyssa Greeley PA Work Phone: [facility] 10-31-2024 13:20-0500 Body weight 118.75 kg Alyssa Maria De Jesus PA Work Phone: [facility] 10-31-2024 13:20-0500 Diastolic blood pressure 76 mm[Hg] Alyssa Maria De Jesus PA Work Phone: [facility] 10-31-2024 13:20-0500 Systolic blood pressure 124 mm[Hg] Alyssa Maria De Jesus PA Work Phone: [facility] 10-22-2024 14:14-0500 Body mass index (BMI) [Ratio] 41.25 kg/m2 Carmen Ayleen DO Work Phone: [facility] 10-22-2024 14:14-0500 Body weight 119.48 kg Carmen Ayleen DO Work Phone: [facility] 10-22-2024 14:14-0500 Diastolic blood pressure 60 mm[Hg] Carmen Ayleen DO Work Phone: [facility] 10-22-2024 14:14-0500 Systolic blood pressure 100 mm[Hg] Carmen Ayleen DO Work Phone: [facility] 10-15-2024 14:53-0500 Body mass index (BMI) [Ratio] 41.21 kg/m2 Carmen Ayleen DO Work Phone: [facility] 10-15-2024 14:53-0500 Body weight 119.35 kg Carmen Ayleen DO Work Phone: [facility] 10-15-2024 14:53-0500 Diastolic blood pressure 72 mm[Hg] Carmen Ayleen DO Work Phone: [facility] 10-15-2024 14:53-0500 Systolic blood pressure 114 mm[Hg] Carmen Ayleen DO Work Phone: [facility] 09-25-2024 14:03-0500 Body mass index (BMI) [Ratio] 40.43 kg/m2 Alyssa Pretty PA Work Phone: [facility] 09-25-2024 14:03-0500 Body weight 117.08 kg Alyssa Maria De Jesus PA Work Phone: [facility] 09-25-2024 14:03-0500 Diastolic blood pressure 68 mm[Hg] Alyssa Maria De Jesus PA Work Phone: [facility] 09-25-2024 14:03-0500 Systolic blood pressure 118 mm[Hg] Alyssa Maria De Jesus PA Work Phone: [facility] 09-11-2024 10:46-0500 Body mass index (BMI) [Ratio] 40.53 kg/m2 Carmen Ayleen DO Work Phone: [facility] 09-11-2024 10:46-0500 Body weight 117.39 kg Carmen Ayleen DO Work Phone: [facility] 09-11-2024 10:46-0500 Diastolic blood pressure 70 mm[Hg] Carmen Ayleen DO Work Phone: [facility] 09-11-2024 10:46-0500 Systolic blood pressure 112 mm[Hg] Carmen Ayleen DO Work Phone: [facility] 08-28-2024 10:28-0500 Body mass index (BMI) [Ratio] 41.16 kg/m2 Alyssa Maria De Jesus PA Work Phone: [facility] 08-28-2024 10:28-0500 Body weight 119.2 kg Alyssa Maria De Jesus PA Work Phone: [facility] 08-28-2024 10:28-0500 Diastolic blood pressure 72 mm[Hg] Alyssa Greeley PA Work Phone: [facility] 08-28-2024 10:28-0500 Systolic blood pressure 114 mm[Hg] Alyssa Greeley PA Work Phone: [facility] 07-30-2024 09:39-0400 Body mass index (BMI) [Ratio] 40.41 kg/m2 Carmen Ayleen DO Work Phone: [facility] 07-30-2024 09:39-0400 Body weight 117.03 kg Carmen Ayleen DO Work Phone: [facility] 07-30-2024 09:39-0400 Diastolic blood pressure 68 mm[Hg] Carmen Ayleen DO Work Phone: [facility] 07-30-2024 09:39-0400 Systolic blood pressure 112 mm[Hg] Carmen Ayleen DO Work Phone: [facility] 07-04-2024 11:36-0400 Body height 170.2 cm Yimi Furlong DO Work Phone: [facility] 07-04-2024 11:36-0400 Body mass index (BMI) [Ratio] 39.28 kg/m2 Yimi Furlong DO Work Phone: [facility] 07-04-2024 11:36-0400 Body temperature 98.1 [degF] Yimi Furlong DO Work Phone: [facility] 07-04-2024 11:36-0400 Body weight 113.76 kg Yimi Furlong DO Work Phone: [facility] 07-04-2024 11:36-0400 Diastolic blood pressure 62 mm[Hg] Yimi Furlong DO Work Phone: [facility] 07-04-2024 11:36-0400 Heart rate 85 /min Yimi Furlong DO Work Phone: [facility] 07-04-2024 11:36-0400 SaO2% (BldA) [Mass fraction] 97 % Yimi Furlong DO Work Phone: [facility] 07-04-2024 11:36-0400 Systolic blood pressure 110 mm[Hg] Yimi Furlong DO Work Phone: [facility] 06-28-2024 15:06-0400 Body mass index (BMI) [Ratio] 39.39 kg/m2 Alyssa ISSA Work Phone: [facility] 06-28-2024 15:06-0400 Body weight 114.08 kg Alyssa ISSA Work Phone: [facility] 06-28-2024 15:06-0400 Diastolic blood pressure 78 mm[Hg] Alyssa Pretty PA Work Phone: [facility] 06-28-2024 15:06-0400 Systolic blood pressure 110 mm[Hg] Alyssa Pretty PA Work Phone: [facility] 05-29-2024 11:14-0400 Body mass index (BMI) [Ratio] 39 kg/m2 Carmen Ayleen DO Work Phone: [facility] 05-29-2024 11:14-0400 Body weight 112.95 kg Carmen Ayleen DO Work Phone: [facility] 05-29-2024 11:14-0400 Diastolic blood pressure 60 mm[Hg] Carmen Ayleen DO Work Phone: [facility] 05-29-2024 11:14-0400 Systolic blood pressure 120 mm[Hg] Carmen Abbasi DO Work Phone: [facility] 02-17-2024 09:25-0400 Body height 170.2 cm Nivia Colón 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 Work Phone: [facility] 02-17-2024 09:25-0400 Body mass index (BMI) [Ratio] 38.17 kg/m2 Niviavaleria Colón 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 Work Phone: [facility] 02-17-2024 09:25-0400 Body temperature 98.29 [degF] Nivia Colón 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 Work Phone: [facility] 02-17-2024 09:25-0400 Body weight 110.54 kg Nivia Colón 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 Work Phone: [facility] 02-17-2024 09:25-0400 Diastolic blood pressure 72 mm[Hg] Nivia Colón 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 Work Phone: [facility] 02-17-2024 09:25-0400 Heart rate 74 /min Nivia Colón 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 Work Phone: [facility] 02-17-2024 09:25-0400 Respiratory rate 18 /min Nivia Colón 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 Work Phone: [facility] 02-17-2024 09:25-0400 SaO2% (BldA) [Mass fraction] 97 % Nivia Colón 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 Work Phone: [facility] 02-17-2024 09:25-0400 Systolic blood pressure 104 mm[Hg] Nivia Colón 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 Work Phone: [facility] 12-20-2023 15:22-0400 Body height 170.2 cm Summer Davalos ROOFER-SENIOR DEVOPS ENGINEER Work Phone: [facility] 12-20-2023 15:22-0400 Body mass index (BMI) [Ratio] 38.28 kg/m2 Summer Davalos 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 [facility] 12-20-2023 15:22-0400 Body temperature 98.29 [degF] Summer Davalos 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 [facility] 12-20-2023 15:22-0400 Body weight 110.86 kg Summer Davalos 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 Work Phone[facility] 12-20-2023 15:22-0400 Diastolic blood pressure 80 mm[Hg] Summer Davalos 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 Work Phone: [facility] 12-20-2023 15:22-0400 Heart rate 82 /min Summer Davalos 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 Work Phone[facility] 12-20-2023 15:22-0400 Respiratory rate 18 /min Summer Davalos 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 Work Phone[facility] 12-20-2023 15:22-0400 SaO2% (BldA) [Mass fraction] 97 % Summer Davalos 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 Work Phone: [facility] 12-20-2023 15:22-0400 Systolic blood pressure 100 mm[Hg] Summer Davalos 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 Work Phone: [facility] [employer] Encounters Encounter Date Encounter Type Care Provider Facility Start: 06-27-2025 End: 06-27-2025 Patient encounter procedure Carmen Ayleen DO Work Phone: [facility] Work Phone: Start: 06-27-2025 End: 06-27-2025 Periodic preventive med est patient 18-39 yrs Carmen Ayleen DO Work Phone: [facility] Comment on above: Pre-op examination; Request for sterilization; Well woman exam with routine gynecological exam; Exposure to STD; Vaginal discharge; Upper back pain Start: 06-27-2025 End: 06-27-2025 Preprocedural examination done Carmen Ayleen DO Work Phone: [facility] Start: 05-27-2025 End: 05-27-2025 Bamboo flowsheet Carmen Ayleen DO Work Phone: [facility] Start: 05-27-2025 End: 05-27-2025 Bamboo flowsheet Carmen Ayleen DO Work Phone: [facility] Start: 05-27-2025 End: 05-27-2025 Office outpatient visit 15 minutes Carmen Ayleen DO Work Phone: [facility] Comment on above: Sterilization consul t Start: 05-27-2025 End: 05-27-2025 ambulatory CARMEN AYLEEN Not Available Start: 04-04-2025 End: 04-04-2025 Emergency department patient visit [facility] Start: 02-08-2025 End: 02-08-2025 Emergency department patient visit [facility] Start: 12-17-2024 End: 12-17-2024 ambulatory ALYSSA PRETTY Not Available Start: 12-12-2024 End: 12-12-2024 Postop follow up visit related to original px Alyssa ISSA Work Phone: [facility] Comment on above: Postoperative follow -up Start: 12-12-2024 End: 12-12-2024 ambulatory ALYSSA PRETTY Not Available Start: 12-12-2024 End: 12-12-2024 Bamboo flowsheet Alyssa ISSA Work Phone: [facility] Start: 12-12-2024 End: 12-12-2024 Bamboo flowsheet Alyssa ISSA Work Phone: [facility] Start: 11-15-2024 End: 11-15-2024 Bamboo flowsheet Alyssa Pretty PA Work Phone: [facility] Start: 11-15-2024 End: 11-15-2024 Bamboo flowsheet Alyssa ISSA Work Phone: [facility] Start: 11-15-2024 End: 11-15-2024 Postop follow up visit related to original px Alyssa ISSA Work Phone: [facility] Comment on above: Postoperative follow -up (Primary Dx) Start: 11-15-2024 End: 11-15-2024 ambulatory ALYSSA PRETTY Not Available Start: 11-10-2024 End: 11-10-2024 Clinisync Result Encounter Carmen Ayleen DO Work Phone: [facility] Unsolicited Start: 11-10-2024 End: 11-10-2024 Clinisync Result Encounter Carmen Ayleen DO Work Phone: [facility] Unsolic[facility] Start: 11-09-2024 End: 11-09-2024 Clinisync Result Encounter Carmen Ayleen DO Work Phone: [facility] Unsolic[facility] Start: 11-09-2024 End: 11-09-2024 Clinisync Result Encounter Carmen Ayleen DO Work Phone: [facility] Unsolic[facility] Start: 11-08-2024 End: 11-08-2024 Bamboo flowsheet Carmen Ayleen DO Work Phone: [facility] Start: 11-08-2024 End: 11-08-2024 Bamboo flowsheet Carmen Ayleen DO Work Phone: [facility] Start: 11-08-2024 End: 11-08-2024 ambulatory CARMEN AYLEEN Not Available Start: 11-08-2024 End: 11-08-2024 flow sheet Carmen Ayleen DO Work Phone: [facility] Comment on above: Third trimester preg mau; 38 weeks gestation of Start: 10-31-2024 End: 10-31-2024 Bamboo flowsheet Alyssa ISSA Work Phone: [facility] Start: 10-31-2024 End: 10-31-2024 Bamboo flowsheet Alyssa ISSA Work Phone: [facility] Start: 10-31-2024 End: 10-31-2024 flow sheet Alyssa ISSA Work Phone: [facility] [...] Bamboo flowsheet Carmen Ayleen DO Work Phone: [facility] Start: 07-30-2024 End: 07-30-2024 Office outpatient visit 15 minutes Carmen Ayleen DO Work Phone: [facility] Comment on above: 24 weeks gestation o f ; Diabetes mellitus screening Start: 07-30-2024 End: 07-30-2024 ambulatory CARMEN AYLEEN Not Available Start: 07-04-2024 End: 07-04-2024 Office outpatient visit [address] [facility] DO Work Phone: [facility] Comment on above: Nasal congestion (Pr imary Dx); Viral URI Start: 07-04-2024 End: 07-04-2024 ambulatory [facility] Start: 06-28-2024 End: 06-28-2024 Office outpatient visit 15 minutes Alyssa ISSA Work Phone: [facility] Comment on above: Second trimester pre gnancy Start: 06-28-2024 End: 06-28-2024 ambulatory ALYSSA PRETTY Not Available Start: 06-28-2024 End: 06-28-2024 Bamboo flowsheet Alyssa ISSA Work Phone: [facility] Start: 06-28-2024 End: 06-28-2024 Bamboo flowsheet Alyssa ISSA Work Phone: [facility] Start: 05-29-2024 End: 05-29-2024 Bamboo flowsheet Carmen Ayleen DO Work Phone: [facility] Start: 05-29-2024 End: 05-31-2024 Bamboo flowsheet Carmen Ayleen DO Work Phone: [facility] Start: 05-29-2024 End: 05-31-2024 Clinisync Result Encounter Carmen Ayleen DO Work Phone: [facility] External Department Unsolicited Start: 05-29-2024 End: 05-30-2024 External Result Encounter Carmen Abbasi DO Work Phone: [facility] Start: 05-29-2024 End: 05-29-2024 Patient encounter procedure Carmen Hannao DO Work Phone: [facility] Start: 05-29-2024 End: 05-29-2024 Periodic preventive med est patient 18-39 yrs Carmen Hannao DO Work Phone: [facility] Comment on above: 15 weeks gestation o f ; Screening, , for anatomic survey; Well woman exam with routine gynecological exam; Exposure to STD; Vaginal discharge Start: 05-29-2024 End: 05-29-2024 ambulatory CARMEN ABBASI Not Available Start: 02-17-2024 End: 02-18-2024 ambulatory [facility] Start: 02-17-2024 End: 02-17-2024 Office outpatient visit 15 minutes [facility] 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 [facility] Comment on above: Miscarriage (Primary Dx) Start: 02-17-2024 End: 02-17-2024 ambulatory [facility] Start: 12-20-2023 End: 12-20-2023 Office outpatient visit 15 minutes Summer Davalos ROOFER-SENIOR DEVOPS ENGINEER [facility] Comment on above: PTSD (post-traumatic stress disorder) (Primary Dx); General counseling and advice for contraceptive management; Class 2 obesity due to excess calories without serious comorbidity with body mass index (BMI) of 37.0 to 37.9 in adult Start: 12-20-2023 End: 12-20-2023 ambulatory [facility] Start: 11-21-2023 Clinisync Result Encounter Carmen Hannao DO Work Phone: [facility]olic[facility] Start: 11-21-2023 Clinisync Result Encounter Carmen Hannao DO Work Phone: [facility]olic[facility] Start: 01-19-2023 End: 01-19-[address] DOCTOR NIX Facility:[facility] Start: 11-16-2022 End: 11-16-[address] BEATA THOMSON . Facility:[facility] Start: 05-07-2022 End: 05-07-[address] SUKHDEEP HERNÁNDEZ . Facility: Procedures Date Procedure Procedure Detail Performing Clinician Start: 11-10-2024 ALL CBC WITH AUTO DIFF Carmen Ayleen DO Work Phone: Start: 11-09-2024 ALL CBC WITH AUTO DIFF Carmen Ayleen DO Work Phone: Start: 11-08-2024 Urnls dip stick/tabl et rgnt non-auto w/o micrscp Carmen Ayleen DO Work Phone: Start: 10-31-2024 Urnls dip stick/tabl et rgnt [...] micrscp Carmen Ayleen DO Work Phone: Start: 07-04-2024 POCT INFLUENZA A/INF LUENZA B/SARS-COV-2 VERITOR Yimi Barragan DO Work Phone: Start: 07-04-2024 Adult depression scr eening assessment Yimi Barragan DO Work Phone: Start: 06-28-2024 Urnls dip stick/tabl et rgnt non-auto w/o micrscp Alyssa ISSA Work Phone: Start: 05-29-2024 AFP, SERUM, OPEN SPI NA BIFIDA Carmen Ayleen DO Work Phone: Start: 05-29-2024 Urnls dip stick/tabl et rgnt non-auto w/o micrscp Carmen Ayleen DO Work Phone: Start: 05-29-2024 Cytp cerv/vag auto t hin layer [facility] Work [facility]: Start: 05-29-2024 URETHRITIS/DISCHARGE PLUS VAGINITIS (HTRX) Carmen Ayleen DO Work Phone: Start: 02-17-2024 Adult depression scr eening assessment [facility] Work Phone: Start: 12-20-2023 Adult depression scr eening assessment Summer Davalos ROOFER-SENIOR DEVOPS ENGINEER Work Phone: Start: 11-21-2023 [facility] PREG QUANT HCG Core y Ayleen DO Work Phone: Start: 11-16-2022 Microscopic observat ion [Identifier] in Cervix by Cyto stain Summer Davalos ROOFER-SENIOR DEVOPS ENGINEER Work Phone: Plan of Treatment Date Care Activity Detail Author Start: 11-13-2029 DTaP,Tdap and Td Vaccines (7 - Td or Tdap) DTaP,Tdap and Td Vaccines (7 - Td or Tdap) [facility] Start: 11-16-2025 Screening for malign ant neoplasm of cervix Pap Smear [facility] Start: 08-12-2025 End: 08-12-2025 Patient encounter procedure 08/12/2025 8:30 AM EST Office Visit [facility] [address] [id number] Alyssa Pretty PA [address] [place] [address] [facility] Start: 07-04-2025 Adult BMI Screening Adult BMI Screen ing [facility] Start: 07-04-2025 Depression Screening Depression Scre ening [facility] Start: 07-04-2025 Tobacco Screening Tobacco Screening [facility] Start: 06-27-2025 End: 06-27-2025 Patient encounter procedure 06/27/2025 10:40 AM EDT Procedure Visit [facility] [address] [place] [phone] Carmen Abbasi DO [address] [place] [address] [facility] Start: 06-10-2025 Influenza vaccination Influenza Vacc ine (#1) [facility] Start: 05-27-2025 End: 05-27-2025 Patient encounter procedure 05/27/2025 10:10 AM EDT Office Visit [facility] [address] [place] [phone] Carmen Abbasi DO [address] [place] [address] Arrived [facility] Comment on above: Arrived Start: 02-16-2025 Adult BMI Screening Adult BMI Screen ing [facility] Start: 02-16-2025 Depression Screening Depression Scre ening [facility] Start: 02-16-2025 Tobacco Screening Tobacco Screening [facility] Start: 12-20-2024 End: 12-20-2024 ambulatory 12/20/2024 9:40 AM EDT Visit [facility] [address] [place] [address] Alyssa Pretty, PA [address] [place] [address] [facility] Start: 12-19-2024 Adult BMI Screening Adult BMI Screen ing [facility] Start: 12-19-2024 Depression Screening Depression Scre ening [facility] Start: 12-19-2024 Tobacco Screening Tobacco Screening [facility] Start: 12-12-2024 End: 12-12-2024 Patient encounter procedure 12/12/2024 2:20 PM EST Office Visit [facility] [address] [place] [phone] Alyssa Pretty, PA [address] [place] [address] Arrived [facility] Comment on above: Arrived Start: 11-15-2024 End: 11-15-2024 Patient encounter procedure 11/15/2024 3:30 PM EST Office Visit [facility] [address] [place] [address] Alyssa Pretty, PA [address] [place] [address] [facility] Start: 11-15-2024 End: 11-15-2024 Patient encounter procedure 11/15/2024 1:50 PM EST Office Visit [facility] [address] [place] [phone] Alyssa Pretty, PA [address] [place] [address] Arrived [facility] Comment on above: Arrived Start: 11-08-2024 End: 11-08-2024 Patient encounter procedure 11/08/2024 11:10 AM EST Routine [facility] [address] [phone] Carmen Abbasi DO [address] [place] [address] [facility] Start: 10-31-2024 End: 10-31-2024 [...] Up Plan Adult BMI Follow Up Plan [facility] Start: 09-11-2024 End: 09-11-2024 Patient encounter procedure [facility] Comment on above: Arrived Start: 09-11-2024 End: 09-11-2024 Professional / ancillary services management 09/11/2024 10:00 AM EST Ancillary Procedure [facility] [address] [phone] [facility] Start: 08-28-2024 End: 08-28-2025 [...] Expected: 07/30/2024 (Approximate), Expires: 07/30/2025 [facility] Comment on above: Expected: 07/30/2024 (Approximate), Expires: 07/30/2025 Start: 07-30-2024 End: 07-30-2024 Patient encounter procedure 07/30/2024 9:10 AM EDT Routine [facility] [address] [place] [phone] Carmen Abbasi DO [address] [place] [address] Arrived [facility] Comment on above: Arrived Start: 07-02-2024 End: 07-02-2024 Patient encounter procedure [facility] Start: 07-02-2024 End: 07-02-2024 Professional / ancillary services management 07/02/2024 8:30 AM EDT Ancillary Procedure [facility] [address] [place] [phone] [facility] Start: 06-28-2024 End: 06-28-2024 Patient encounter procedure 06/28/2024 3:00 PM EDT Routine [facility] [address] [place] [phone] Alyssa Pretty PA [address] [place] [address] Arrived [facility] Comment on above: Arrived Start: 06-10-2024 Influenza vaccination Influenza Vacc ine (#1) [facility] Start: 05-29-2024 End: 07-29-2024 Alpha fetoprotein, maternal Alpha fetoprotein, maternal Lab Routine 15 weeks gestation of Expected: 05/29/2024 (Approximate), Expires: 07/29/2024 [facility] Comment on above: Expected: 05/29/2024 (Approximate), Expires: 07/29/2024 Start: 05-29-2024 End: 05-29-2025 US for US OB ANATOMY SINGLE W US OB CERVICAL LENGTH Imaging Routine Screening, , for anatomic survey Expected: 05/29/2024 (Approximate), Expires: 05/29/2025 [facility] Comment on above: Expected: 05/29/2024 (Approximate), Expires: 05/29/2025 Start: 05-29-2024 End: 05-29-2024 Patient encounter procedure 05/29/2024 10:50 AM EDT Routine [facility] [address] [address] Carmen Abbasi, DO [address] [place] [address] Arrived [facility] Comment on above: Arrived Start: 06-10-2023 Influenza vaccination Influenza Vacc ine (#1) [facility] CHLAMYDIA TRACHOMATI S (GENITO/STI) CHLAMYDIA TRACHOMATIS (GENITO/STI) Lab Routine Exposure to STD Ordered: 05/29/2024 [facility] Comment on above: Ordered: 05/29/2024 CHLAMYDIA TRACHOMATI S (GENITO/STI) CHLAMYDIA TRACHOMATIS (GENITO/STI) Lab Routine Exposure to STD Ordered: 06/27/2025 [facility] Comment on above: Ordered: 06/27/2025 Cytology Cervical or vaginal smear or scraping study Pap Smear Pathology and Cytology Routine Well woman exam with routine gynecological exam Ordered: 05/29/2024 [facility] Work Phone: Comment on above: Ordered: 05/29/2024 Cytology Cervical or vaginal smear or scraping study Pap Smear Pathology and Cytology Routine Well woman exam with routine gynecological exam Ordered: 06/27/2025 [facility] [facility] Work Phone: Comment on above: Ordered: 06/27/2025 Neisseria gonorrhoea e DNA [Presence] in Unspecified specimen by RADHA with probe detection Neisseria gonorrhea DNA probe, direct Lab Routine Exposure to STD Ordered: 05/29/2024 [facility] Comment on above: Ordered: 05/29/2024 Neisseria gonorrhoea e DNA [Presence] in Unspecified specimen by RADHA with probe detection Neisseria gonorrhea DNA probe, direct Lab Routine Exposure to STD Ordered: 06/27/2025 [facility] Comment on above: Ordered: 06/27/2025 SURESWAB(R) ADVANCED VAGINITIS PLUS, TMA SURESWAB(R) ADVANCED VAGINITIS PLUS, TMA Pathology and Cytology Routine Vaginal discharge Ordered: 05/29/2024 [facility] Comment on above: Ordered: 05/29/2024 SURESWAB(R) ADVANCED VAGINITIS PLUS, TMA SURESWAB(R) ADVANCED VAGINITIS PLUS, TMA Pathology and Cytology Routine Vaginal discharge Ordered: 06/27/2025 [facility] Comment on above: Ordered: 06/27/2025 Immunizations Immunization Date Immunization Notes Care Provider Fa manuel 11-13-2019 tetanus toxoid, redu clifford diphtheria toxoid, and acellular pertussis vaccine, adsorbed Summer Davalos [facility] Work Phone: [facility] 01-22-2014 diphtheria, tetanus toxoids and acellular pertussis vaccine, unspecified formulation Summer Davalos [facility] Work Phone: [facility] 06-22-2004 diphtheria, tetanus toxoids and acellular pertussis vaccine Summer Davalos [facility] Work Phone: [facility] Work Phone: 06-22-2004 haemophilus influenz ae type b vaccine, PRP-T conjugate Summer Davalos [facility] Work Phone: [facility] 06-22-2004 pneumococcal conjuga te vaccine, 7 valent Summer Davalos [facility] Work Phone: [facility] 12-20-2003 DTaP-hepatitis B and poliovirus vaccine Summer Davalos [employer] Work Phone: [facility] 12-20-2003 haemophilus influenz ae type b vaccine, PRP-T conjugate Summer Davalos [employer] Work Phone: [facility] 12-20-2003 measles, mumps and rubella virus vaccine Summer Davalos [employer] Work Phone: [facility] 12-20-2003 varicella virus vaccine Summer Davalos [employer] Work Phone: [facility] 11-11-2003 DTaP-hepatitis B and poliovirus vaccine Summer Davalos [employer] Work Phone: [facility] 11-11-2003 haemophilus influenz ae type b vaccine, PRP-T conjugate Summer Davalos [employer] Work Phone: [facility] 11-11-2003 pneumococcal conjuga te vaccine, 7 valent Summer Davalos [employer] Work Phone: [facility] 05-31-2003 DTaP-hepatitis B and poliovirus vaccine Summer Davalos [employer] Work Phone: [facility] 05-31-2003 haemophilus influenz ae type b vaccine, PRP-T conjugate Summer Davalos [employer] Work Phone: [facility] 05-31-2003 pneumococcal conjuga te vaccine, 7 valent Summer Davalos [employer] Work Phone: [facility] 2002 hepatitis B vaccine, pediatric or pediatric/adolescent dosage Summer Davalos [employer] Work Phone: [facility] Payers Date Payer Category Payer Private Health Insurance [employer] [id number] 2024 Unknown [id number] 2022 Medicaid (Managed Care) [facility] MEDICAID [id number] 2018 Medicaid [id number] 2002 Unknown [id number] 2.16.840.1.113234.3.579.2. 1286 2002 Unknown [id number] 2.16.840.1.122463.3.579.2. 1285 2002 Unknown [id number] 2.16.840.1.457614.3.579.2. 128 2002 Unknown [id number] 2.16.840.1.429941.3.579.2. 128 2002 Unknown [id number] 2.16.840.1.507471.3.579.2. 128 2002 Unknown [id number] 2.16.840.1.121643.3.579.2. 1286 2002 Unknown [id number] 2.16.840.1.696844.3.579.2. 1258 2002 Unknown [id number] 2.16.840.1.703123.3.579.2. 1258 2002 Unknown [id number] 2.16.840.1.856696.3.579.2. 1258 2002 Unknown [id number] 2.16.840.1.062329.3.579.2. 1258 2002 Unknown [id number] 2.16.840.1.689190.3.579.2. 1258 2002 Unknown [id number] 2.16.840.1.953862.3.579.2. 1258 2002 Unknown [id number] 2.16.840.1.225764.3.579.2. 1258 2002 Unknown [id number] 2.16.840.1.193393.3.579.2. 1258 2002 Unknown [id number] 2.16.840.1.976343.3.579.2. 1258 2002 Unknown [id number] 2.16.840.1.203154.3.579.2. 1258 2002 Unknown [id number] 2.16.840.1.685866.3.579.2. 1258 2002 Unknown [id number] 2.16.840.1.079394.3.579.2. 1258 2002 Unknown [id number] 2.16.840.1.433366.3.579.2. 1258 2002 Unknown [id number] 2.16.840.1.945988.3.579.2. 1259 1982 Unknown [id number] 2.16.840.1.138085.3.579.2. 593 1982 Unknown [id number] 2.16.840.1.079292.3.579.2. 593 1982 Unknown [id number] 2.16.840.1.520172.3.579.2. 593 1959 Unknown [id number] 1959 Unknown [id number] Social History Date Type Detail Facility Start: 05-19-2023 Tobacco smoking status NHIS Tobacco smoking consumption unknown [facility] Start: 05-19-2023 Tobacco use and exposure User of smokeless tobacco [facility] Start: 11-18-2023 End: 06-27-2025 Alcohol intake Lifetime non-drinker (finding) [facility] Start: 05-19-2023 End: 06-28-2024 History of Social function [facility] Start: 05-19-2023 End: 06-28-2024 Tobacco use panel [facility] Start: 2002 Sex Assigned At Not on file [facility] Start: 02-24-2024 [facility] Start: 2002 Sex assigned at Female [facility] Start: 01-23-2024 Gender identity Identifies as female gender (finding) [facility] Start: 01-23-2024 Sexual orientation Heterosexual (finding) [facility] Start: 01-15-2023 Tobacco smoking status RIIS Never smoked tobacco [facility] Start: 01-15-2023 Tobacco use and exposure Smokeless tobacco non-user [facility] Frequency of Alcohol Consumption Never [facility] Clinical Notes 12-20-2023 to 06-27-2025 Bushra Santillan - 06/27/2025 10:40 AM Tristen Bloom LPN - 05/27/2025 10:10 AM MAEGAN Cadena - 12/12/2024 2:20 PM MAEGAN Liang - 11/15/2024 1:50 PM MAEGAN Liang - 10/31/2024 1:20 PM EST Note Date & Type Note Facility 06-27-2025 History of Present illness Narrative Reason for Appointment: Patient ID: Lorie Martinez is a 24 y.o. female who presents for Pre-op Visit, Gynecologic Exam, and Well Women Visit Patient presents today for Pre Op/Annual appointment. Patient is scheduled to undergo [facility] assisted Bilateral Laparoscopic Salpingectomy on 08-02-[address] Abbasi at [facility]. MEDICATIONS Current Outpatient Medications Medication Instructions citalopram (CELEXA) 20 mg, Oral, Daily ibuprofen 800 mg, Every 8 hours ALLERGIES Allergies Allergen Reactions Ondansetron Rash PROBLEMS Active Ambulatory Problems Diagnosis Date Noted Anxiety with depression 09/25/2024 6 weeks follow-up ([facility]) 12/12/2024 Postoperative follow-up 12/12/2024 Resolved Ambulatory Problems Diagnosis Date Noted 32 weeks gestation of ([facility]) 09/25/2024 Third trimester ([facility]) 09/25/2024 36 weeks gestation of ([facility]) 10/22/2024 Past Medical History: Diagnosis Date ADHD [...] Vitals: Estimated body mass index is 42.91 kg/m as calculated from the following: Height [...] complaints of requesting sterilization. I have discussed conservative management vs. surgical management with the patient in detail and patient desires surgical management at this time. Patient will undergo [facility] assisted Bilateral Laparoscopic Salpingectomy on 08-02-25. Surgical consents were signed, mmc was reviewed, and patient is to proceed to [facility] OR. Follow Up: Patient is to follow up between 1-2 weeks post operative/weight loss to assess proper healing and recovery from procedure. Documented by Sara Bloom LPN on behalf of: Carmen Abbasi DO documented in this encounter [facility] 05-27-2025 History of Present illness Narrative Reason for Appointment: Patient ID: Lorie Martinez is a 24 y.o. female who presents for Discuss Tubal Patient presents today for Consult appointment. MEDICATIONS Current Outpatient Medications Medication Instructions citalopram (CELEXA) 20 mg, Oral, Daily ibuprofen 800 mg, Every 8 hours ALLERGIES Allergies Allergen Reactions Ondansetron Rash PROBLEMS Active Ambulatory Problems Diagnosis Date Noted Anxiety with depression 09/25/2024 6 weeks follow-up ([facility]) 12/12/2024 Postoperative follow-up 12/12/2024 Resolved Ambulatory Problems Diagnosis Date Noted 32 weeks gestation of ([facility]) 09/25/2024 Third trimester ([facility]) 09/25/2024 36 weeks gestation of ([facility]) 10/22/2024 Past Medical History: Diagnosis Date ADHD [...] nursing note reviewed. Exam conducted with a roll trucker present. Vitals: Estimated body mass index is 42.52 kg/m as calculated from the following: Height as of 08/01/23: 5' 7 . Weight as of this encounter: 271 lb 8 oz. BP: 126/84 Patient's last menstrual period was 05/24/2025 (approximate). ASSESSMENT & PLAN ICD-10-CM 1. Sterilization consult Z30.09 Patient and spouse present to office today to discuss sterilization. Patient voiced that she has completed her childbearing years. Discussed outcomes with patient and she is completely ready to have permanent sterilization. Patient to setup surgical date prior to leaving today--patient to return to clinic for pre-op appointment. Patient to have Nexplanon removal at post-op appointment. Documented by Sara Bloom LPN on behalf of: Carmen Abbasi DO documented in this encounter [facility] 12-12-2024 History of Present illness Narrative Reason for Appointment: Patient ID: Lorie Martinez is a 23 y.o. female who presents for Post-op Visit and Follow-up Patient presents today for Post Follow Up appointment. MEDICATIONS Current Outpatient Medications Medication Instructions citalopram (CELEXA) 20 mg, Oral, Daily ibuprofen 800 mg, Every 8 hours ALLERGIES Allergies Allergen Reactions Ondansetron Rash PROBLEMS Active Ambulatory Problems Diagnosis Date Noted Anxiety with depression 09/25/2024 6 weeks follow-up 12/12/2024 Postoperative follow-up 12/12/2024 Resolved Ambulatory Problems Diagnosis Date Noted 32 weeks gestation of 09/25/2024 Third trimester 09/25/2024 36 weeks gestation of 10/22/2024 Past Medical History: Diagnosis Date ADHD (attention deficit hyperactivity disorder) ([facility]) HISTORY PAST MEDICAL HISTORY SOCIAL HISTORY Past Medical History: Diagnosis Date ADHD (attention deficit hyperactivity disorder) ([facility]) Social History Tobacco Use Smoking status: Unknown [...] breath sounds. Abdominal: Palpations: Abdomen is soft. Comments: Pfannenstiel incision looks well healed,no redness or erythema Musculoskeletal: General: Normal range of motion. Neurological: General: No focal deficit present. Mental Status: She is alert and oriented to person, place, and time. Psychiatric: Mood and Affect: Mood normal. Behavior: Behavior normal. Thought Content: Thought content normal. Judgment: Judgment normal. Vitals and nursing note reviewed. Vitals: Estimated body mass index is 38.86 kg/m as calculated from the following: Height as of 08/01/23: 5' 7 . Weight as of 11/15/24: 248 lb 1.9 oz. BP: No LMP recorded. ASSESSMENT & PLAN ICD-10-CM 1. Postoperative follow-up Z09 Patient here for post op incision check. She has video of redness around incision. States she used a powder on area and made worse. Today incision looks normal, no redness or dermatitis noted.pt scheduled for post next week Documented by Sara Bloom LPN on behalf of: MAEGAN Link documented in this encounter [facility] 11-15-2024 History of Present illness Narrative Reason for Appointment: Patient ID: Lorie Martinez is a 23 y.o. female who presents for No chief complaint on file. Patient presents today for Post Follow Up appointment. and 1 Week Post Op Follow Up appointment. MEDICATIONS Current Outpatient Medications Medication Instructions citalopram [...] Diagnosis Date ADHD (attention deficit hyperactivity disorder) ([facility]) HISTORY PAST MEDICAL HISTORY SOCIAL HISTORY Past Medical History: Diagnosis Date ADHD (attention deficit hyperactivity disorder) ([facility]) Social History Tobacco Use Smoking status: Unknown [...] breath sounds. Abdominal: Palpations: Abdomen is soft. Comments: Steristrips in place to pfannenstiel incision, looks to good, no drainage or discharge Musculoskeletal: General: Normal range of motion. Neurological: General: No focal deficit present. Mental Status: She is alert and oriented to person, place, and time. Psychiatric: Mood and Affect: Mood normal. Behavior: Behavior normal. Thought Content: Thought content normal. Judgment: Judgment normal. Vitals and nursing note reviewed. Vitals: Estimated body mass index is 38.86 kg/m as calculated from the following: Height as of 08/01/23: 5' 7 . Weight as of this encounter: 248 lb 1.9 oz. BP: 120/78 No LMP recorded. ASSESSMENT & PLAN ICD-10-CM 1. Postoperative follow-up Z09 Patient presents today for a one week postop section check. Patient is doing well with minor complaints of pain. Incision has been noted as healing well with no signs and symptoms of infection. Follow Up: Patient is to return in 5 weeks for 6 week evaluation. Documented by MAEGAN Link on behalf of: MAEGAN Link documented in this encounter [facility] 11-08-2024 History of Present illness Narrative Reason for [...] Diagnosis Date ADHD (attention deficit hyperactivity disorder) ([facility]) HISTORY PAST MEDICAL HISTORY SOCIAL HISTORY Past Medical History: Diagnosis Date ADHD (attention deficit hyperactivity disorder) ([facility]) Social History Tobacco Use Smoking status: Unknown [...] nursing note reviewed. Exam conducted with a roll trucker present. Vitals: Estimated body mass index is 41.04 kg/m as calculated from the following: Height as of 08/01/23: 5' 7 . Weight as of this encounter: 262 lb. BP: 122/72 No LMP recorded. Patient is . ASSESSMENT & PLAN ICD-10-CM 1. Third trimester Z34.93 POCT urinalysis dipstick manually resulted 2. 38 weeks gestation of Z3A.38 Patient presents today for a routine obstetrics appointment. Patient is currently 38w6d with a Estimated Date of Delivery: 11/16/24. Patient to have repeat on 11/12/2024. Patient to return to clinic for 1 week and 6 week post /post operative. Documented by Sara Bloom LPN on behalf of: Carmen Abbasi DO documented in this encounter [facility] 10-31-2024 History of Present illness Narrative Reason [...] of: MAEGAN Link documented in this encounter [facility] 10-22-2024 History of Present illness Narrative Reason [...] Diagnosis Date ADHD (attention deficit hyperactivity disorder) ([facility]) HISTORY PAST MEDICAL HISTORY SOCIAL HISTORY Past Medical History: Diagnosis Date ADHD (attention deficit hyperactivity disorder) ([facility]) Social History Tobacco Use Smoking status: Unknown [...] Carmen Abbasi DO documented in this encounter [facility] 10-15-2024 History of Present illness Narrative Reason [...] nursing note reviewed. Exam conducted with a roll trucker present. Vitals: Estimated body mass index is [...] Carmen Abbasi DO documented in this encounter [facility] 09-25-2024 History of Present illness Narrative Reason [...] nursing note reviewed. Exam conducted with a roll trucker present. Vitals: Estimated body mass index is [...] of: MAEGAN Link documented in this encounter [facility] 09-11-2024 History of Present illness Narrative Reason [...] Diagnosis Date ADHD (attention deficit hyperactivity disorder) ([facility]) HISTORY PAST MEDICAL HISTORY SOCIAL HISTORY Past Medical History: Diagnosis Date ADHD (attention deficit hyperactivity disorder) ([facility]) Social History Tobacco Use Smoking status: Unknown [...] nursing note reviewed. Exam conducted with a roll trucker present. Vitals: Estimated body mass index is [...] Carmen Abbasi DO documented in this encounter [facility] 08-28-2024 History of Present illness Narrative Reason [...] of: MAEGAN Link documented in this encounter [facility] 07-30-2024 History of Present illness Narrative Reason [...] nursing note reviewed. Exam conducted with a roll trucker present. Vitals: Estimated body mass index is [...] week with [facility] in [place] and will reach out to there office to reschedule appointment. Documented by Sara Bloom LPN on behalf of: Carmen Abbasi DO documented in this encounter [facility] 07-04-2024 History of Present illness Narrative Subjective Patient ID: Ash Martinez is a 23 y.o. female. She presents today for nasal congestion, fever and vomiting. She said she woke up at 3:00 a.m. this morning sick to her stomach and vomited. She also had a fever of 100.8 and nasal congestion. She took her temperature little while later was 100.1. She does not really feel nauseated right now. She felt okay yesterday. She did not eat much last night before she went to bed. The following portions of the patient's history were reviewed and updated as appropriate: allergies, current medications, past family history, past medical history, past social history, past surgical history, problem list, and medication reconciliation was completed including current medication and post discharge medication. Review of Systems Constitutional: Positive for fever. HENT: Positive for congestion. Gastrointestinal: Positive for vomiting. Objective Physical Exam Constitutional: General: She is not in acute distress. Appearance: She is obese. She is not ill-appearing. HENT: Head: Normocephalic. Right Ear: Tympanic membrane, ear canal and external ear normal. Left Ear: Tympanic membrane, ear canal and external ear normal. Nose: Mucosal edema, congestion and rhinorrhea present. Rhinorrhea is purulent. Right Nostril: No occlusion. Left Nostril: Occlusion present. Right Turbinates: Not enlarged or swollen. Left Turbinates: Not enlarged or swollen. Comments: Light green mucus Mouth/Throat: Lips: Reader. Mouth: Mucous membranes are moist. Dentition: Normal dentition. Tongue: No lesions. Palate: No mass and lesions. Pharynx: No pharyngeal swelling, oropharyngeal exudate, posterior oropharyngeal erythema or uvula swelling. Tonsils: No tonsillar exudate or tonsillar abscesses. Comments: + PND Cardiovascular: Rate and Rhythm: Normal rate and regular rhythm. Pulses: Normal pulses. Heart sounds: Normal heart sounds. No murmur heard. Pulmonary: Effort: Pulmonary effort is normal. No respiratory distress. Breath sounds: Normal breath sounds. No wheezing, rhonchi or rales. Musculoskeletal: Cervical back: Neck supple. Neurological: General: No focal deficit present. Mental Status: She is alert and oriented to person, place, and time. Psychiatric: Attention and Perception: Attention normal. Mood and Affect: Mood and affect normal. Speech: Speech normal. Behavior: Behavior normal. Behavior is cooperative. Thought Content: Thought content normal. Cognition and Memory: Cognition normal. Judgment: Judgment normal. Assessment/Plan Ash was seen today for nasal congestion, vomiting and fever. Diagnoses and all orders for this visit: Nasal congestion - POCT Influenza A/Influenza B/SARS-COV-2 Veritor Her flu and COVID tests were negative. I suspect a viral URI. Will treat with fluticasone nasal spray 2 sprays in each nostril daily. She was also given an allergy rinse bottle. I suspect she threw up because of the postnasal drainage and swallowing mucus. She could try B6 for the nausea. Off work note given for today and tomorrow. Go back on Tuesday. Viral URI As above. Call if worse or new symptoms arise. Other orders - fluticasone propionate (FLONASE) 50 mcg/actuation nasal spray; Administer 2 sprays into each nostril in the morning. documented in this encounter [facility] 06-28-2024 History of Present illness Narrative Reason [...] Diagnosis Date ADHD (attention deficit hyperactivity disorder) ([facility]) HISTORY PAST MEDICAL HISTORY SOCIAL HISTORY Past Medical History: Diagnosis Date ADHD (attention deficit hyperactivity disorder) ([facility]) Social History Tobacco Use Smoking status: Unknown [...] of: MAEGAN Link documented in this encounter [facility] 05-29-2024 History of Present illness Narrative Reason [...] Diagnosis Date ADHD (attention deficit hyperactivity disorder) ([facility]) HISTORY PAST MEDICAL HISTORY SOCIAL HISTORY Past Medical History: Diagnosis Date ADHD (attention deficit hyperactivity disorder) ([facility]) Social History Tobacco Use Smoking status: Unknown [...] nursing note reviewed. Exam conducted with a roll trucker present. Vitals: Estimated body mass index is [...] Carmen Abbasi DO documented in this encounter [facility] 02-17-2024 History of Present illness Narrative [address] [place] [id number] Patient: Ash Martinez Date of : 2000 Encounter Date: 02/17/2024 History of Present Illness: The patient is a 23 y.o. female, an established patient, and is here for Chief Complaint Patient presents with Miscarriage 02/12 . HPI Patient presents today for spontaneous miscarriage. On January 10 patient developed spotting and on January 11 she developed some heavy bleeding and clots and she called her OB, and HCG levels were drawn that appeared to be decreasing. Since January 11 she has had some heavy bleeding and has seen her OBGYN who determined this was a spontaneous miscarriage and she is to have an ultrasound on Tuesday to determine if there is remaining fragments. She was about 3-4 weeks along with the . Patient states she is coping fairly well with the loss and has a very good support system and declines the need for counseling or medication today. She previously had a in 2019 that was increased risk due to having no care until 7 half months along and she needed an emergency but her 1st child is very healthy and has normal development. She is a . Her OBGYN plans on taking extra precautions when she has another and she may start trying according to her OBGYN at the end of April/early May. Problem List Items Addressed This Visit None Visit Diagnoses Miscarriage - Primary Relevant Orders CBC auto differential Iron and TIBC Ferritin Past Medical, Family, and Social History Update: The following portions of the patient's history were reviewed and updated as appropriate: allergies, current medications, past family history, past medical history, past social history, past surgical history and problem list. Past Medical History: Diagnosis Date ADHD (attention deficit hyperactivity disorder) Anger Bipolar disorder ([facility]) PTSD (post-traumatic stress disorder) Past Surgical History: Procedure Laterality Date SECTION No current outpatient medications on file. No current facility-administered medications for this visit. (All medications reviewed and updated by provider since last office visit or hospitalization) Allergies: Zofran [ondansetron hcl] Tobacco History: Social History Tobacco Use Smoking Status Never Smokeless Tobacco Never (If patient a smoker, smoking cessation counseling offered) Social History: Social History Substance and Sexual Activity Alcohol Use Never Review of Systems: Review of Systems Constitutional: Negative for activity change, appetite change, fatigue and unexpected weight change. Genitourinary: Positive for vaginal bleeding. Psychiatric/Behavioral: Positive for dysphoric mood. Negative for agitation, decreased concentration, self-injury, sleep disturbance and suicidal ideas. Physical Exam: BP 104/72 (BP Site: Left Arm, BP Postition: Sitting) Pulse 74 Temp 36.8 C (98.3 F) (Oral) Resp 18 Ht 170.2 cm (5' 7 ) Wt 110.5 kg (243 lb 11.2 oz) LMP 12/10/2023 (Approximate) SpO2 97% BMI 38.17 kg/m Physical Exam Vitals reviewed. Constitutional: Appearance: Normal appearance. She is obese. HENT: Head: Normocephalic and atraumatic. Neurological: General: No focal deficit present. Mental Status: She is alert and oriented to person, place, and time. Gait: Gait normal. Psychiatric: Attention and Perception: Attention normal. Mood and Affect: Mood normal. Speech: Speech normal. Behavior: Behavior normal. Thought Content: Thought content normal. Cognition and Memory: Cognition and memory normal. Judgment: Judgment normal. Assessment and Plan: Ash was seen today for miscarriage. Diagnoses and all orders for this visit: Miscarriage - CBC auto differential; Future - Iron and TIBC; Future - Ferritin; Future Follow-up: We will check her iron labs and stores and CBC to make sure her blood loss was not excessive in relation to the miscarriage. She declines any need for services including counseling or medication therapy for the loss. She will call and let us know if she changes her mind about this. Otherwise she should follow-up when she is due for a wellness visit. 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, she should continue [...] 1629 documented in this encounter [facility] Evaluation note Diagnosis 24 weeks gestation of [...] trimester state, incidental documented in this encounter [facility] Healthcare[facility] note* Diagnosis Third trimester state, incidental 37 weeks gestation of documented in this encounter [facility] note* Diagnosis Third trimester state, incidental 38 weeks gestation of documented in this encounter [facility] note* Diagnosis Postoperative follow-up- Primary Follow-up examination, following unspecified surgery documented in this encounter [facility] HealthcareEvaluation note* Diagnosis Miscarriage- Primary Unspecified spontaneous without mention of complication documented in this encounter [facility] SystemEvaluation note* Diagnosis PTSD (post-traumatic stress disorder)- Primary Posttraumatic stress disorder General counseling and advice for contraceptive management Class 2 obesity due to excess calories without serious comorbidity with body mass index (BMI) of 37.0 to 37.9 in adult documented in this encounter [facility] SystemEvaluation note* Diagnosis Nasal congestion- Primary Other diseases of nasal cavity and sinuses Viral URI Acute upper respiratory infections of unspecified site documented in this encounter [facility]* Diagnosis Postoperative follow-up Follow-up examination, following unspecified surgery documented in this encounter [facility] Healthcare[facility] note* Diagnosis Sterilization consult Other general counseling and advice for contraceptive management documented in this encounter [facility] HealthcareEvaluation note* Diagnosis Pre-op examination Request for sterilization Well woman exam with routine gynecological exam Routine gynecological examination Exposure to STD Vaginal discharge Leukorrhea, not specified as infective Upper back pain Unspecified backache documented in this encounter [facility] CareInstructionsNot on filedocumented in this encounterProOhio[facility] SystemInstructionsNot on filedocumented in this encounterProOhiohealth Gr[facility] SystemInstructionsNot on filedocumented in this encounterC[facility] Reason for referral (narrative)* Consultation (Routine) - Pending Review Specialty Diagnoses / Procedures Referred By Vinny stoddard Referred To Contact Diagnoses PTSD (post-traumatic stress disorder) Summer Davalos APRN-FNP [address] [place] [address] Referral ID Status Reason Start Date Expiration Date Visits Requested Visits Authorized [id number] Pending Review Patient Preference 12/20/2023 12/19/2024 1 1 [facility] Summary Purpose Family History No Family [...] content) DATE CREATED AUTHOR [facility]/27/2023 [facility] DATE CREATED AUTHOR AUTHOR'S ORGANIZ ATION 02/20/2024 [facility] DATE CREATED AUTHOR AUTHOR'S ORGANIZ ATION 07/06/2024 [facility] DATE CREATED AUTHOR AUTHOR'S ORGANIZ ATION 04/06/2025 [facility] DATE CREATED AUTHOR AUTHOR'S ORGANIZ ATION 05/28/2025 [facility] dical Specialists EPIC Care Teams (unrecognized sec tion and content) Pack Train Driver Relationship Specialty Start Date End Date Reid Jasmine MD PCP - General Family Medicine 08/01/23 Pack Train Driver Relationship Specialty Start Date End Date Summer Davalos 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 [address] [place] [address] PCP - General Internal Medicine 09/14/23 Pack Train Driver Relationship Specialty Start Date End Date Summer Davalos 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 [address] [place] [address] PCP - General Internal Medicine 09/14/23 Pack Train Driver Relationship Specialty Start Date End Date Nivia Colón APRN-BRICK OFFBEARER [address] [place] [address] PCP - General Family Medicine 05/22/24 Reason for Visit (unrecogniz ed section and content) Reason Comments Routine Visit Reason Comments Miscarriage 02/12 Reason Comments Annual Exam Reason Comments Nasal Congestion Vomiting Fever Reason Comments Post-op Visit Follow-up Reason Comments Discuss Tubal Reason Comments Pre-op Visit Gynecologic Exam Well Women Visit FOR RECORDS PERTAINING TO PATIENTS WHO [...] BE BASED ON THE PRIMARY CLINICAL RECORDS. [employer] [facility]. provides no warranty or guarantee of the accuracy or completeness of information in this document.
--- OUTSIDE RECORDS SUMMARY | 2025-06-27 19:23 | XMS_ITS | Encounter Summary ---
Author Organization [facility] Address [address] [place] [address] Care Team Providers Care Rotor Balancer Name Role Phone Unavailable Primary Care Provider Unavailabl e Encounter Details Date Type Department Care Team (Late st Contact Info) Description 05/11/2024 Clinisync Result Encounter [facility] External Department Unsolicited Carmen Abbasi DO [address] [place], [place] [address] Social History Tobacco Use Types Packs/Day Years Used Date Smoking Tobacco: Unknown Smokeless Tobacco: Current Alcohol Use Standard Drinks/Week Comments Never 0 (1 standard drink = 0.6 oz pur e alcohol) Comments Yes Sex and Gender Information Value Date Recorded Sex Assigned at Female 01/23/2024 11:09 AM EDT Legal Sex Female 6:41 PM EDT Gender Identity Female 01/23/2024 11:09 AM EDT Sexual Orientation Straight 01/23/2024 11 :09 AM EDT documented as of this encounter Plan of Treatment Upcoming Encounters Date Type Department Care Team (Late st Contact Info) Description 08/12/2025 8:30 AM EST Office Visit [facility] [address] [phone] Alyssa Bazan PA [address] [place], [place] [address] documented as of this encounter Procedures Procedure Name Priority Date/Time Associated Diagnosis Comments US OB TRANSVAGINAL 05/11/2024 9: 50 AM EDT TBH BOX TEST SENT OUT Routine 05/11/2024 9:47 AM EDT HBSAG SCREEN Routine 05/11/2024 9:47 AM EDT RAPID PLASMA REAGIN, QUANT Routine 05/11/2024 9:47 AM EDT HIV AB/P24 AG WITH REFLEX Routine 05/11/2024 9:47 AM EDT HCV ANTIBODY RFX TO QUANT PCR Routine 05/11/2024 9:47 AM EDT MLR HEMOGLOBIN A1C Routine 05/11/2024 9 :47 AM EDT ALL TYPE AND SCREEN Routine 05/11/2024 9 :47 AM EDT ALL RUBELLA IGG AB Routine 05/11/2024 9: 47 AM EDT ALL CBC WITH AUTO DIFF Routine 05/11/2024 9:47 AM EDT documented in this encounter Results * US OB TRANSVAGINAL (05/11/2024 9:50 AM EDT) Anatomical Region Laterality Modality Other 05/11/2024 9:50 AM EDT Narrative 05/11/2024 9:53 [place] [address] Ultrasound Report Signed Patient: ASH MARTINEZ MR#: [id number] : 2000 Acct:[id number] Age/Sex: 23 / F ADM Date: 05/11/24 Loc: [facility] Attending Dr: Carmen Abbasi D.O. Ordering Physician: Carmen Abbasi D.O. Date of Service: 05/11/24 Procedure(s): US OB transvaginal Accession Number(s): [id number] cc: Carmen Abbasi D.O.; ELISA MARES [place] [id number] Patient Name: ASH MARTINEZ MRN: [id number]:[id number] date: 2000 Sex: F Assigned Patient Location: [facility] Current Patient Location: LAB Accession/Order Number: [id number] Exam Date: 05/11/2024 08:31 Report Date: 05/11/2024 09:50 At the request of: CARMEN ABBASI Procedure: US OB transvaginal EXAMINATION: US OB transvaginal HISTORY: MISSED MENSES COMPARISON: Ultrasound OB transvaginal 04/18/2024 FINDINGS: GESTATIONAL SAC: Present and normal appearing. YOLK SAC: Absent. POLE: Present and normal appearing. CARDIAC: Present. UTERUS: Normal size and appearance. OVARIES: Right: Not seen. Left: Not seen. CERVIX: 4.7 cm in length and closed. CUL-DE-SAC: Normal. OTHER: None. AGE BY LMP: Unknown LMP MYESHA BY LMP: AGE BY US CRL: 13 weeks 0 days MYESHA BY US CRL: 11/16/2024 US/US OB transvaginal IMPRESSION: 1. Single live intrauterine . Electronically authenticated by: JOSE HERNANDES Date: 05/11/2024 09:50 Dictated By: Jose Hernandes M.D. Signed By: 05/11/24 0953 DD/ TD/TT: Panel Coverer: Procedure Note Radiology, Radiologist, MD - 05/11/2024 [place] [address] Ultrasound Report Signed Patient: ASH MARTINEZ KMR#: [id number] : 2000Acct:[id number] Age/Sex: 23 / FADM Date: 05/11/24 Loc: [facility] Attending Dr: Carmen Abbasi D.O. Ordering Physician: Carmen Abbasi D.O. Date of Service: 05/11/24 Procedure(s): US OB transvaginal Accession Number(s): [id number] cc: Carmen Abbasi D.O.; ELISA MARES [address] [address] Patient Name: ASH MARTINEZ MRN: [facility]:[id number] date: 2000 Sex: F Assigned Patient Location: [facility] Current Patient Location: LAB Accession/Order Number: [id number] Exam Date: 05/11/2024 08:31 Report Date: 05/11/2024 09:50 At the request of: CARMEN ABBASI Procedure: US OB transvaginal EXAMINATION: US OB transvaginal HISTORY: MISSED MENSES COMPARISON: Ultrasound OB transvaginal 04/18/2024 FINDINGS: GESTATIONAL SAC: Present and normal appearing. YOLK SAC: Absent. POLE: Present and normal appearing. CARDIAC: Present. UTERUS: Normal size and appearance. OVARIES: Right: Not seen. Left: Not seen. CERVIX: 4.7 cm in length and closed. CUL-DE-SAC: Normal. OTHER: None. AGE BY LMP: Unknown LMP MYESHA BY LMP: AGE BY US CRL: 13 weeks 0 days MYESHA BY US CRL: 11/16/2024 US/US OB transvaginal IMPRESSION: 1. Single live intrauterine . Electronically authenticated by: JOSE HERNANDES Date: 05/11/2024 09:50 Dictated By: Jose Hernandes M.D. Signed By:05/11/2453 DD/ TD/TT: Panel Coverer: us Carmen Abbasi DO [facility] Final Result * TB BOX TEST SENT OUT (05/11/2024 9:47 AM EDT) BOX TEST SENT OUT 05/11/24 [facility] 05/11/2024 9:47 AM EDT 05/11/2024 9:53 AM EDT Narrative [facility] - 05/18/2024 3:48 PM EDT us Carmen Ayleen DO [facility] Final Result Performing Organization Address [facility] Co de Phone Number [facility] * HBSAG SCREEN (05/11/2024 9:47 AM EDT) [facility] HBSAG SCREEN Negative Negative [facility] Comment: Performed at: [address] [id number] Computer Network Support Specialist: Ender Win PhD, Phone: [phone] 05/11/2024 9:47 AM EDT 05/11/2024 9:53 AM EDT Narrative [facility] - 05/12/2024 10:09 AM EDT Carmen Ayleen DO LAB BLOOD ORDERABLES Final Resul t Performing Organization Address [facility] Phone Number [facility] * RAPID PLASMA REAGIN, QUANT (05/11/2024 9:47 AM EDT) [facility] RAPID PLASMA REAGIN, QUANT Non Reactive NonRea<1: 1 titer [facility] Comment: Please Note: This test does not meet current guidelines for screening and diagnosis of syphilis. This test is intended for following treatment response in patients being treated for syphilis infection. To screen for syphilis infection, a reflex cascade that includes both RPR and a treponema-specific assay should be utilized, such as Treponema pallidum (Syphilis) Screening [place] (132895) or Rapid Plasma Reagin (RPR) Test With Reflex to Quantitative RPR and Confirmatory Treponema pallidum Antibodies (365157). Performed at: [address] [id number] Computer Network Support Specialist: Ender Win PhD, Phone: [phone] 05/11/2024 9:47 AM EDT 05/11/2024 9:53 AM EDT Narrative [facility] - 05/12/2024 10:09 AM EDT Carmen Ayleen DO LAB BLOOD ORDERABLES Final Resul t Performing Organization Address [facility] Co de Phone Number [facility] * HCV ANTIBODY RFX TO QUANT PCR (05/11/2024 9:47 AM EDT) HCV AB Non Reactive Non Reactive [facility] INTERPRETATION: Comment . [facility] Comment: Not infected with HCV unless early or acute infection is suspected (which may be delayed in an immunocompromised individual), or other evidence exists to indicate HCV infection. 05/11/2024 9:47 AM EDT 05/11/2024 9:53 AM EDT Narrative [facility] 05/12/2024 7:10 AM EDT us Carmen Ayleen DO LAB BLOOD ORDERABLES Final Resul t Performing Organization Address [facility] Co de Phone Number [facility] * HIV AB/P24 AG WITH REFLEX (05/11/2024 9:47 AM EDT) Pathologist [facility] HIV AB/P24 AG SCREEN Non Reactive Non Reactive [facility] Comment: HIV-1/HIV-2 antibodies and HIV-1 p24 antigen were NOT detected. There is no laboratory evidence of HIV infection. HIV Negative Performed at: [employer] [id number] Computer Network Support Specialist: Ender Win PhD, Phone: [phone] 05/11/2024 9:47 AM EDT 05/11/2024 9:53 AM EDT Narrative [facility] - 05/12/2024 7:10 AM EDT us ZoopShopo DO LAB BLOOD ORDERABLES Final Resul t Performing Organization Address [facility] Co de Phone Number [facility] * ALL RUBELLA IGG AB (05/11/2024 9:47 AM EDT) Pathologist [facility] RUBELLA ANTIBODIES, IGG 6.75 Immune >0.99 index TB Comment: Non-immune <0.90 Equivocal 0.90 - 0.99 Immune >0.99 Performed at: [address] [id number] Computer Network Support Specialist: Edner Win PhD, Phone: [phone] 05/11/2024 9:47 AM EDT 05/11/2024 9:53 AM EDT Narrative [facility] - 05/12/2024 7:10 AM EDT Carmen Ayleen DO [facility] Final Result Performing Organization Address [facility] Co de Phone Number [facility] * MLR HEMOGLOBIN A1C (05/11/2024 9:47 AM EDT) [facility] GLYCOHEMOGLOBIN A1C 4.6 4.5 - 6.2 % [facility] Comment: ADA RECOMMENDED LIMIT 4.0 - 6.0 ADA THERAPEUTIC TARGET < 7.0 ACTION SUGGESTED > 7.0 ESTIMATED AVERAGE GLUCOSE 85 mg/dL TB 05/11/2024 9:47 AM EDT 05/11/2024 9:53 AM EDT Narrative [facility] - 05/11/2024 11:45 AM EDT [facility] Final Result Performing Organization Address [facility] de Phone Number [facility] * ALL TYPE AND SCREEN (05/11/2024 9:47 AM EDT) [facility] BLOOD TYPE B Positive [facility] ANTIBODY SCREEN NEGATIVE TB 05/11/2024 9:47 AM EDT 05/11/2024 9:53 AM EDT Narrative [facility] - 05/11/2024 10:56 AM EDT [facility] , Carmen Ayleen DO [facility] Final Result Performing Organization Address [facility] de Phone Number [facility] * ALL CBC WITH AUTO DIFF (05/11/2024 9:47 AM EDT) [facility] WBC 7.6 4.0 - 11.0 10 3/uL TBH TB RBC 4.55 4.20 - 5.40 10 6/uL TB[facility] TB HGB 13.2 12.0 - 16.0 g/dL TBH TBH HCT 37.8 36.0 - 48.0 % [facility]H TBH MCV 83.1 81.0 - 99.0 fL TBH TBH MCH 29.0 26.7 - 34.0 pg TBH TBH MCHC 34.9 29.9 - 35.2 g/dL TBH TBH RDW 12.8 11.0 - 15.0 % TBH TBH PLT 232 150 - 450 10 3/uL TBH TBH MPV 10.0 9.5 - 13.5 fL TBH NEUTROPHILS PERCENT AUTO 68.8 43.0 - 75.0 % TBH LYMPHOCYTES PERCENT AUTO 22.8 20.5 - 60.0 % TBH MONOCYTES PERCENT AUTO 6.0 1.7 - 12.0 % TBH TBH EO % 1.6 0.9 - 7.0 % TBH BASOPHILS PERCENT AUTO 0.7 0.2 - 2.0 % TB[facility] IMMATURE GRANULOCYTES PCT AUTO 0.1 0.0 - 0.5 % TBH NEUTROPHILS ABSOLUTE AUTO 5.2 1.4 - 6.5 10 3/uL TBH LYMPHOCYTES ABSOLUTE AUTO 1.7 1.2 - 3.8 10 3/uL TBH MONOCYTES ABSOLUTE AUTO 0.5 0.3 - 0.8 10 3/uL TBH TBH EO # 0.1 0.0 - 0.7 10 3/uL TBH BASOPHILS ABSOLUTE AUTO 0.1 0.0 - 0.1 10 3/uL TB[facility] IMMATURE GRANULOCYTES ABS AUTO 0.01 0.00 - 0.03 10 3/uL [facility] 05/11/2024 9:47 AM EDT 05/11/2024 9:53 AM EDT Narrative [facility] - 05/11/2024 9:58 AM EDT us Carmen Abbasi DO [facility] Final Result [facility] documented in this encounter Visit Diagnoses Not on filedocumented in this encounter
--- OUTSIDE RECORDS SUMMARY | 2025-06-27 19:23 | XMS_ITS | Encounter Summary ---
Author Organization [facility] Address [address] [place] [address] Care Team Providers Care Aircraft Inspection Record Clerk Name Role Phone Unavailable Primary Care Provider Unavailabl e Encounter Details Date Type Department Care Team (Late st Contact Info) Description 07/02/2024 Clinisync Result Encounter [facility] External Department Unsolicited Carmen Abbasi DO [address] [place], [place] [address] Social History Tobacco Use Types Packs/Day Years [...] Description 08/12/2025 8:30 AM EST Office Visit [facility] [address] [place] [place] [phone] Alyssa Bazan PA [address] [place], [place] [address] documented as of this encounter Procedures Procedure Name Priority Date/Time Associated Diagnosis Comments US OB ANATOMY 07/02/2024 9:32 AM EDT documented in this encounter Results * US OB ANATOMY (07/02/2024 9:32 AM EDT) Anatomical Region Laterality Modality Other 07/02/2024 9:32 AM EDT Narrative 07/02/2024 9:35 [place] [address] Ultrasound Report Signed Patient: ASH MARTINEZ MR#: [id number] : 2000 Acct:[id number] Age/Sex: 23 / F ADM Date: 07/02/24 Loc: [facility] Attending Dr: Carmen Abbasi D.O. Ordering Physician: Carmen Abbasi D.O. Date of Service: 07/02/24 Procedure(s): US OB anatomy Accession Number(s): [id number] cc: Carmen Abbasi D.O.; ELISA MARES [place] [address] Patient Name: ASH MARTINEZ MRN: [id number] date: 2000 Sex: F Assigned Patient Location: [facility] Current Patient Location: [facility] Accession/Order Number: [id number] Exam Date: 07/02/2024 08:30 Report Date: 07/02/2024 09:32 At the request of: CARMEN ABBASI Procedure: US OB anatomy EXAMINATION: US OB anatomy, US OB transvaginal HISTORY: ANATOMY COMPARISON: No relevant comparison available. TECHNIQUE: Transabdominal sonographic examination was performed for obstetrical and evaluation. FINDINGS: Limited exam due to maternal body habitus Number: 1 Heart Rate: 155 bpm H.B. /min Amniotic Fluid Volume: Subjectively normal position: Cephalic presentation, longitudinal lie Placental Location: ANTERIOR, the placental edge is 3.3 cm from the internal cervical os Cervix Length: 3.97 cm , closed Normal anatomy: Lateral ventricles, cerebellum, posterior fossa, nose, lips, orbits, diaphragm, stomach, kidneys, abdominal cord insertion, bladder, umbilical arteries, spine, extremities Suboptimal visualization: Four-chamber heart Nonvisualization: RVOT, LVOT, three-vessel cord BIOMETRY: BPD: 4.75 cm; 20 weeks 3 days; 46.60 % HC: 17.73 cm; 20 weeks 1 day; 31.30 % AC: 14.84 cm; 20 weeks 1 day; 33.10 % FL: 3.55 cm; 21 weeks 2 days; 69.90 % EFW:343.10 g; 53.40 %, 13 ounces FL/AC: 23.92 FL/BPD: 74.74 HC/AC: 1.19 GESTATIONAL AGE: Age by EDC: 20 weeks 3 days MYESHA by EDC: 2024-11-16 Age by current US: 20 weeks 4 days MYESHA by current US: 2024-11-15 US/US OB anatomy IMPRESSION: Suboptimal and nonvisualization detailed above Otherwise normal anatomy scan Closed cervix measuring 4 cm in length *Reference: [employer] Practice Guideline for the performance of Obstetric Ultrasound Examinations, July 10, 2007. Electronically authenticated by: MARQUES RAMIREZ Date: 07/02/2024 09:32 Dictated By: Marques Ramirez M.D. Signed By: 07/02/24934 DD/ 1 TD/TT: Cutter Operator Brick: Procedure Note Radiology, Radiologist, MD - 07/02/2024 [place] [address] Ultrasound Report Signed Patient: ASH MARTINEZ KMR#: [id number] : 2000Acct:[id number] Age/Sex: 23 FADM Date: 07/02/24 Loc: [facility] Attending Dr: Carmen Abbasi D.O. Ordering Physician: Carmen Abbasi D.O. Date of Service: 07/02/24 Procedure(s): US OB anatomy Accession Number(s): [id number] cc: Carmen Abbasi D.O.; ELISA MARES [place] [id number] Patient Name: ASH MARTINEZ MRN: [id number] date: 2000 Sex: F Assigned Patient Location: [facility] Current Patient Location: [facility] Accession/Order Number: [id number] Exam Date: 07/02/2024 08:30 Report Date: 07/02/2024 09:32 At the request of: CARMEN ABBASI Procedure: US OB anatomy EXAMINATION: US OB anatomy, US OB transvaginal HISTORY: ANATOMY COMPARISON: No relevant comparison available. TECHNIQUE: Transabdominal sonographic examination was performed for obstetrical and evaluation. FINDINGS: Limited exam due to maternal body habitus Number: 1 Heart Rate: 155 bpm H.B. /min Amniotic Fluid Volume: Subjectively normal position: Cephalic presentation, longitudinal lie Placental Location: ANTERIOR, the placental edge is 3.3 cm from theinternal cervical os Cervix Length: 3.97 cm , closed Normal anatomy: Lateral ventricles, cerebellum, posterior fossa, nose,lips, orbits, diaphragm, stomach, kidneys, abdominal cord insertion, bladder, umbilical arteries, spine, extremities Suboptimal visualization: Four-chamber heart Nonvisualization: RVOT, LVOT, three-vessel cord BIOMETRY: BPD: 4.75 cm; 20 weeks 3 days; 46.60 % HC: 17.73 cm; 20 weeks 1 day; 31.30 % AC: 14.84 cm; 20 weeks 1 day; 33.10 % FL: 3.55 cm; 21 weeks 2 days; 69.90 % EFW:343.10 g; 53.40 %, 13 ounces FL/AC: 23.92 FL/BPD: 74.74 HC/AC: 1.19 GESTATIONAL AGE: Age by EDC: 20 weeks 3 days MYESHA by EDC: 2024-11-16 Age by current US: 20 weeks 4 days MYESHA by current US: 2024-11-15 US/US OB anatomy IMPRESSION: Suboptimal and nonvisualization detailed above Otherwise normal anatomy scan Closed cervix measuring 4 cm in length *Reference: [employer] Practice Guideline for the performance of Obstetric Ultrasound Examinations, July 10, 2007. Electronically authenticated by: MARQUES RAMIREZ Date: 07/02/2024 09:32 Dictated By: Marques Ramirez M.D. Signed By:07/02/24 0935 DD/ 0932 TD/TT: Cutter Operator Brick: us Carmen Abbasi DO [facility] Final Result documented in this encounter Visit Diagnoses Not on filedocumented in this encounter
--- OUTSIDE RECORDS SUMMARY | 2025-06-27 19:23 | XMS_ITS | Encounter Summary ---
Author Organization [facility] [facility] tem Address [facility] [id number] [address] [place] [address] Care Team Providers Care Asbestos Hazard Abatement Worker Name Role Phone Mireya Baker APRN-SALES COMMUNICATIONS MANAGER Primary Care Provider + Encounter Details Date Type Department Care Team (Late st Contact Info) Description 07/30/2024 Orders Only [facility] Internal Medicine - Family Medicine [address] [place] [phone] Mireya Baker APRNSALES COMMUNICATIONS MANAGER [address] [place] [address] Social History Tobacco Use Types Packs/Day Years Used Date Smoking Tobacco: Never Smokeless Tobacco: Never Alcohol Use Standard Drinks/Week Comments Never 0 (1 standard drink = 0.6 oz pur e alcohol) AUDIT-C Answer Date Recorded Frequency of Alcohol Consumption Never 10/04/2019 Average Number of Drinks Not on file 019 Frequency of Binge Drinking Not on file 09/10 PHQ-2 Answer Date Recorded Total Score 0 07/04/2024 Childcare Answer Date Recorded Childcare Unknown 03/21/2019 Employment Answer Date Recorded Employment Unknown 03/21/2019 Hunger Screening Answer Date Recorded Within the past 12 months we worried whether our food would run out before we got money to buy more. Never True 07/04/2024 Within the past 12 months th e food we bought just didn't last and we didn't have money to get more. Never True 07/04/2024 Purpose - Life Answer Date Recorded Purpose and direction in life Unknown Comments No Sex and Gender Information Value Date Recorded Sex Assigned at Not on file Legal Sex Female 12:02 PM EDT Gender Identity Not on file Sexual Orientation Not on file documented as of this encounter Plan of Treatment Not on file documented as of this encounter Visit Diagnoses Not on filedocumented in this encounter Additional Health Concerns Infection Onset Date Last Indicated Resolved Time Respiratory Rule-Out 02/08/2025 02/08/2025 025 9:13 AM EDT Assessment Noted Time PHQ-9 Depression Total Score: 0 07/04/20 24 11:36 AM EDT A Body Mass Index follow-up plan has been documented for the patient 09/14/2023 10:11 AM EST documented as of this encounter Care Teams Asbestos Hazard Abatement Worker Relationship Specialty Start Date End Date Mireya Baker APRN-SALES COMMUNICATIONS MANAGER [address] [place] [address] PCP - General Family Medicine 02/08/25 documented as of this encounter
--- OUTSIDE RECORDS SUMMARY | 2025-06-27 19:23 | XMS_ITS | Encounter Summary ---
Author Organization [facility] [employer] [facility] tem Address [facility] [place][id number] [address] [place] [address] Care Team Providers Care Dip Lube Operator Name Role Phone Mireya Baker ACQUISITION ASSOCIATE-ACCOUNT RESOLUTION SPECIALIST Primary Care Provider + Encounter Details Date Type Department Care Team (Late st Contact Info) Description 05/23/2024 Orders Only [facility] Internal Medicine - Family Medicine [address] [place] [phone] External, Scanning Provider Social History Tobacco Use Types Packs/Day Years [...] PHQ-2 Answer Date Recorded Total Score 0 02/17/2024 Childcare Answer Date Recorded Childcare Unknown 03/21/2019 Employment Answer Date Recorded Employment Unknown 03/21/2019 Hunger Screening Answer Date Recorded Within the past 12 months we worried whether our food would run out before we got money to buy more. Never True 02/17/2024 Within the past 12 months th e food we bought just didn't last and we didn't have money to get more. Never True 02/17/2024 Purpose - Life Answer Date Recorded Purpose and direction in life Unknown Comments No Sex and Gender Information Value Date Recorded Sex Assigned at Not on file Legal Sex Female 12:02 PM EDT Gender Identity Not on file Sexual Orientation Not on file documented as of this encounter Plan of Treatment Not on file documented as of this encounter Procedures Procedure Name Priority Date/Time Associated Diagnosis Comments US ABDOMEN LMTD Routine 05/22/2024 11:31 AM EDT documented in this encounter Results * Ultrasound abdomen limited (05/22/2024 11:31 AM EDT) Anatomical Region Laterality Modality Body, Abdomen Ultrasound us Scanning Provider External IMG US ORDERABLES Fin al Result documented in this encounter Visit Diagnoses Not on filedocumented in this encounter Additional Health Concerns Infection Onset Date Last Indicated Resolved Time Respiratory Rule-Out 02/08/2025 02/08/2025 025 9:13 AM EDT Assessment Noted Time PHQ-9 Depression Total Score: 0 02/17/20 24 9:24 AM EDT A Body Mass Index follow-up plan has been documented for the patient 09/14/2023 10:11 AM EST documented as of this encounter Care Teams Dip Lube Operator Relationship Specialty Start Date End Date Mireya Baker, ACQUISITION ASSOCIATE-ACCOUNT RESOLUTION SPECIALIST [address] [place] [address] PCP - General Family Medicine 02/08/25 documented as of this encounter
--- OUTSIDE RECORDS SUMMARY | 2025-06-27 19:23 | XMS_ITS | Encounter Summary ---
Author Organization [facility] tem Address [id number] [address] [place] [address] Care Team Providers Care Biomedical Instrument Technician Name Role Phone Mireay Baker Valentín ROSENTHAL-EXTRACTOR TENDER RAW STOCK Primary Care Provider + Encounter Details Date Type Department Care Team (Late st Contact Info) Description 02/17/2024 Orders Only [facility] Internal Medicine - Family Medicine [address] [place] [phone] Summer Davalos, ELECTRONIC SENSING EQUIPMENT ASSEMBLER-CASUALTY UNDERWRITER [address] [address] Social History Tobacco Use Types Packs/Day Years [...] Name Priority Date/Time Associated Diagnosis Comments US TRANSVAGINAL Routine 02/12/2024 11:23 AM EDT documented in this encounter Results * US TRANSVAGINAL (02/12/2024 11:23 AM EDT) us Scanning Provider External [place] [facility] Final Result MANUALLY TRANSCRIBED RESULTS documented in this encounter Visit Diagnoses Not [...] documented as of this encounter Care Teams Biomedical Instrument Technician Relationship Specialty Start Date End Date Mireya Baker, ELECTRONIC SENSING EQUIPMENT ASSEMBLER-EXTRACTOR TENDER RAW STOCK [address] [place] [address] PCP - General Family Medicine 02/08/25 documented as of this encounter
--- OUTSIDE RECORDS SUMMARY | 2025-06-27 19:23 | XMS_ITS | Encounter Summary ---
Author Organization [facility] Address [address] [place] [address] Care Team Providers Care Customer Service Operator Name Role Phone Unavailable Primary Care Provider Unavailabl e Encounter Details Date Type Department Care Team (Late st Contact Info) Description 07/02/2024 Clinisync Result Encounter [facility] External Department Unsolicited Carmen Abbasi DO [address] [place], [place] [address] Social History Tobacco Use Types Packs/Day Years [...] AM EST Office Visit [facility] [address] [place] [phone] Alyssa Bazan PA [address] [place], [place] [address] documented as of this encounter Procedures Procedure Name Priority Date/Time Associated Diagnosis Comments US OB TRANSVAGINAL 07/02/2024 9: 32 AM EDT documented in this encounter Results * US OB TRANSVAGINAL (07/02/2024 9:32 AM EDT) Anatomical Region Laterality Modality Other 07/02/2024 9:32 AM EDT Narrative 07/02/2024 9:35 [place] [address] Ultrasound Report Signed Patient: ASH MARTINEZ MR#: [id number] : 2000 Acct:[id number] Age/Sex: 23 / F ADM Date: 07/02/24 Loc: [facility] Attending Dr: Carmen Abbasi D.O. Ordering Physician: Carmen Abbasi D.O. Date of Service: 07/02/24 Procedure(s): US OB transvaginal Accession Number(s): [id number] cc: Carmen Abbasi D.O.; ELISA MARES [place] [id number] Patient Name: ASH MARTINEZ MRN: [id number] date: 2000 Sex: F Assigned Patient Location: [facility] Current Patient Location: [facility] Accession/Order Number: [id number] Exam Date: 07/02/2024 08:30 Report Date: 07/02/2024 09:32 At the request of: CARMEN ABBASI Procedure: US OB transvaginal EXAMINATION: US OB anatomy, US OB transvaginal [...] MYESHA by current US: 2024-11-15 US/US OB transvaginal IMPRESSION: Suboptimal and nonvisualization detailed above Otherwise normal anatomy scan Closed cervix measuring 4 cm in length *Reference: [facility] Practice Guideline for the performance of Obstetric Ultrasound Examinations, July 10, 2007. Electronically authenticated by: MARQUES RAMIREZ Date: 07/02/2024 09:32 Dictated By: Marques Ramirez M.D. Signed By: 07/02/24934 DD/ 1 TD/TT: Director Of Automation: Procedure Note Radiology, Radiologist, MD - 07/02/2024 [place] [address] Ultrasound Report Signed Patient: ASH MARTINEZ KMR#: [id number] : 2000Acct:[id number] Age/Sex: 23 / FADM Date: 07/02/24 Loc: [facility] Attending Dr: Carmen Abbasi D.O. Ordering Physician: Carmen Abbasi D.O. Date of Service: 07/02/24 Procedure(s): US OB transvaginal Accession Number(s): [id number] cc: Carmen Abbasi D.O.; ELISA MARES [place] [id number] Patient Name: ASH MARTINEZ MRN: [facility]:[id number] date: 2000 Sex: F Assigned Patient Location: [facility] Current Patient Location: [facility] Accession/Order Number: [id number] Exam Date: 07/02/2024 08:30 Report Date: 07/02/2024 09:32 At the request of: CARMEN ABBASI Procedure: US OB transvaginal EXAMINATION: US OB anatomy, US OB transvaginal [...] MYESHA by current US: 2024-11-15 US/US OB transvaginal IMPRESSION: Suboptimal and nonvisualization detailed above Otherwise normal anatomy scan Closed cervix measuring 4 cm in length *Reference: [facility] Practice Guideline for the performance of Obstetric Ultrasound Examinations, July 10, 2007. Electronically authenticated by: MARQUES RAMIREZ Date: 07/02/2024 09:32 Dictated By: Marques Ramirez M.D. Signed By:07/02/2435 DD/ TD/TT: Director Of Automation: us Carmen Abbasi DO [facility] Final Result documented in this encounter Visit Diagnoses Not on filedocumented in this encounter
--- OUTSIDE RECORDS SUMMARY | 2025-06-27 19:23 | XMS_ITS | Encounter Summary ---
Author Organization [facility] [employer] [facility] tem Address [id number] [address] [place] [address] Care Team Providers Care Exhibit Carpenter Name Role Phone Mireya Baker ENGINE ASSEMBLER-MARKET RESEARCH SPECIALIST Primary Care Provider + Encounter Details Date Type Department Care Team (Late st Contact Info) Description 05/11/2024 Orders Only [facility] Internal Medicine - Family Medicine [address] [place] [phone] Ref Prov, [place] [address] Social History Tobacco Use Types Packs/Day Years [...] Name Priority Date/Time Associated Diagnosis Comments US PELVIC WITH TRANSVAGINAL Routine 05/11/2024 12:26 PM EDT documented in this encounter Results * Ultrasound pelvic with transvaginal (05/11/2024 12:26 PM EDT) Anatomical Region Laterality Modality Body, Pelvis Ultrasound us Not In System Ref Prov IMG US ORDERABLES Final R esult documented in this encounter Visit Diagnoses Not [...] documented as of this encounter Care Teams Exhibit Carpenter Relationship Specialty Start Date End Date Mireya Baker APRN-MARKET RESEARCH SPECIALIST [address] [place] [address] PCP - General Family Medicine 02/08/25 documented as of this encounter
--- OUTSIDE RECORDS SUMMARY | 2025-06-27 19:23 | XMS_ITS | Encounter Summary ---
Author Organization [facility] [employer] [facility] tem Address [facility] [id number] [address] [place] [address] Care Team Providers Care Reservations Manager Name Role Phone Mireya Baker DATA PROCESSING SPECIALIST-PACKAGER OR PACKER AND WEIGHER Primary Care Provider + Encounter Details Date Type Department Care Team (Late st Contact Info) Description 04/20/2024 Orders Only [facility] Internal Medicine - Family Medicine [address] [place] [phone] External, Scanning Provider Social History Tobacco Use [...] Date/Time Associated Diagnosis Comments US TRANSVAGINAL Routine 04/18/2024 11:47 AM EDT documented in this encounter Results * US TRANSVAGINAL (04/18/2024 11:47 AM EDT) us Scanning Provider External [place] [facility] Final Result MANUALLY [...] documented as of this encounter Care Teams Reservations Manager Relationship Specialty Start Date End Date Mireya Baker, DATA PROCESSING SPECIALIST-PACKAGER OR PACKER AND WEIGHER [address] [place] [address] PCP - General Family Medicine 02/08/25 documented as of this encounter
--- OUTSIDE RECORDS SUMMARY | 2025-06-27 19:23 | XMS_ITS | Encounter Summary ---
Author Organization [facility] Address [address] [place] [address] Care Team Providers Care Carpenter Bridge Name Role Phone Unavailable Primary Care Provider Unavailabl e Encounter Details Date Type Department Care Team (Late st Contact Info) Description 07/30/2024 Clinisync Result Encounter [facility] External Department Unsolicited Harry Abbasi DO [address] [place], [place] [address] Social History Tobacco Use Types Packs/Day Years [...] AM EST Office Visit [facility] [address] [place] [phone] Alyssa Bazan PA [address] [place], [facility] documented as of this encounter Procedures Procedure Name Priority Date/Time Associated Diagnosis Comments GLUCOSE 1 HOUR Routine 07/30/2024 11:59 AM EDT ALL CBC WITH AUTO DIFF Routine 07/30/2024 11:59 AM EDT US OB INCOMPLETE ANATOMY 07/30/2024 9:49 AM EDT documented in this encounter Results * GLUCOSE 1 HOUR (07/30/2024 11:59 AM EDT) GLUCOSE 1 HOUR 117 <130 mg/dL [facility] 07/30/2024 11:5 9 AM EDT 07/30/2024 12:39 PM EDT Narrative [facility] - 07/30/2024 12:39 PM EDT us Harry Ayleen DO LAB BLOOD ORDERABLES Final Resul t [facility] * (ABNORMAL) ALL CBC WITH AUTO DIFF (07/30/2024 11:59 AM EDT) [facility] WBC 11.3(H) 4.0 - 11.0 10 3/uL [facility] RBC 3.95(L) 4.20 - 5.40 10 6/uL [facility] HGB 11.8(L) 12.0 - 16.0 g/dL [facility] HCT 34.4(L) 36.0 - 48.0 % [facility] MCV 87.1 81.0 - 99.0 fL [facility]H TB[facility] MCH 29.9 26.7 - 34.0 pg TBH TBH MCHC 34.3 29.9 - 35.2 g/dL [facility] TBH RDW 13.2 11.0 - 15.0 % [facility] TBH PLT 258 150 - 450 10 3/uL [facility] TBH MPV 10.2 9.5 - 13.5 fL [facility] NEUTROPHILS PERCENT AUTO 72.6 43.0 - 75.0 % [facility] LYMPHOCYTES PERCENT AUTO 17.6(L) 20.5 - 60.0 % [facility] MONOCYTES PERCENT AUTO 6.4 1.7 - 12.0 % [facility]H EO % 1.2 0.9 - 7.0 % [facility] BASOPHILS PERCENT AUTO 0.4 0.2 - 2.0 % [facility] IMMATURE GRANULOCYTES PCT AUTO 1.8(H) 0.0 - 0.5 % [facility] NEUTROPHILS ABSOLUTE AUTO 8.2(H) 1.4 - 6.5 10 3/uL [facility] LYMPHOCYTES ABSOLUTE AUTO 2.0 1.2 - 3.8 10 3/uL [facility] MONOCYTES ABSOLUTE AUTO 0.7 0.3 - 0.8 10 3/uL [facility] TBH EO # 0.1 0.0 - 0.7 10 3/uL [facility] BASOPHILS ABSOLUTE AUTO 0.1 0.0 - 0.1 10 3/uL [facility] IMMATURE GRANULOCYTES ABS AUTO 0.20(H) 0.00 - 0.03 10 3/uL [facility] 07/30/2024 11:5 9 AM EDT 07/30/2024 12:34 PM EDT Narrative [facility] - 07/30/2024 12:34 PM EDT us Harry Abbasi DO [facility] Final Result [facility] * US OB INCOMPLETE ANATOMY (07/30/2024 9:49 AM EDT) Anatomical Region Laterality Modality Other 07/30/2024 9:49 AM EDT Narrative 07/30/2024 9:52 [place] [address] Ultrasound Report Signed Patient: ASH MARTINEZ MR#: [id number] : 2000 Acct:[id number] Age/Sex: 23 / F ADM Date: 07/30/24 Loc: [facility] Attending Dr: Harry Abbasi D.O. Ordering Physician: Harry Abbasi D.O. Date of Service: 07/30/24 Procedure(s): US OB incomplete anatomy Accession Number(s): [id number] cc: Harry Abbasi D.O.; ELISA MARES [address] [address] Patient Name: ASH MARTINEZ MRN: [id number] date: 2000 Sex: F Assigned Patient Location: [facility] Current Patient Location: [facility] Accession/Order Number: [id number] Exam Date: 07/30/2024 08:35 Report Date: 07/30/2024 09:49 At the request of: HARRY ABBASI Procedure: US OB incomplete anatomy EXAM: US OB incomplete anatomy HISTORY: INCOMPLETE ANATOMY COMPARISON: 07/02/2024 TECHNIQUE: Transabdominal images FINDINGS: Limited by patient body habitus position: Cephalic presentation, longitudinal lie Heart rate: 151 beats minute Normal observed anatomy: four-chamber heart, RVOT, LVOT, three-vessel cord US/US OB incomplete anatomy IMPRESSION: Normal observed anatomy Electronically authenticated by: MARQUES RAMIREZ Date: 07/30/2024 09:49 Dictated By: Marques Ramirez M.D. Signed By: 07/30/2452 DD/ TD/TT: Fiberglass Quality Technician: Procedure Note Radiology, Radiologist, MD - 07/30/2024 [place] [address] Ultrasound Report Signed Patient: ASH MARTINEZ KMR#: [id number] : 2000Acct:[id number] Age/Sex: 23 M Date: 07/30/24 Loc: [facility] Attending Dr: Harry Abbasi D.O. Ordering Physician: Harry Abbasi D.O. Date of Service: 07/30/24 Procedure(s): US OB incomplete anatomy Accession Number(s): [id number] cc: Harry Abbasi D.O.; ELISA MARES [place] [id number] Patient Name: ASH MARTINEZ MRN: [id number] date: 2000 Sex: F Assigned Patient Location: [facility] Current Patient Location: [facility] Accession/Order Number: [id number] Exam Date: 07/30/2024 08:35 Report Date: 07/30/2024 09:49 At the request of: HARRY ABBASI Procedure: US OB incomplete anatomy EXAM: US OB incomplete anatomy HISTORY: INCOMPLETE ANATOMY COMPARISON: 07/02/2024 TECHNIQUE: Transabdominal images FINDINGS: Limited by patient body habitus position: Cephalic presentation, longitudinal lie Heart rate: 151 beats minute Normal observed anatomy: four-chamber heart, RVOT, LVOT, three-vessel cord US/US OB incomplete anatomy IMPRESSION: Normal observed anatomy Electronically authenticated by: MARQUES RAMIREZ Date: 07/30/2024 09:49 Dictated By: Marques Ramirez M.D. Signed By:07/30/24951 DD/ 8 TD/TT: Fiberglass Quality Technician: us Harry Abbasi DO [facility] Final Result documented in this encounter Visit Diagnoses Not on filedocumented in this encounter
--- OUTSIDE RECORDS SUMMARY | 2025-06-27 19:23 | XMS_ITS | Encounter Summary ---
Author Organization [facility] [employer] [facility] tem Address [id number] [address] [place] [address] Care Team Providers Care Poising Inspector Name Role Phone Mireya Baker BACON SLICER-SCHOOL SUPERVISOR Primary Care Provider + Encounter Details Date Type Department Care Team (Late st Contact Info) Description 07/02/2024 Orders Only [facility] - Family Medicine [address] [place] [phone] External, Scanning Provider Social History Tobacco Use [...] Date/Time Associated Diagnosis Comments US TRANSVAGINAL Routine 07/02/2024 11:15 AM EDT US PREG GREATER THAN 14 WKS SNGL TRANSAB Routine 07/02/2024 11:15 AM EDT documented in this encounter Results * US TRANSVAGINAL (07/02/2024 11:15 AM EDT) us Scanning Provider External [place] [facility] Final Result MANUALLY TRANSCRIBED RESULTS * Ultrasound greater than 14 weeks single transabdominal (07/02/2024 11:15 AM EDT) Anatomical Region Laterality Modality OB-SUBWAY GUARD Ultrasound us Scanning Provider External IMG US [...] documented as of this encounter Care Teams Poising Inspector Relationship Specialty Start Date End Date Mireya Baker APRN-KONRAD [address] [place] [address] PCP - General Family Medicine 02/08/25 documented as of this encounter
--- OUTSIDE RECORDS SUMMARY | 2025-06-27 19:23 | XMS_ITS | Encounter Summary ---
Author Organization [facility] [employer] [facility] tem Address [facility] [id number] [address] [place] [address] Care Team Providers Care Clinical Unit Coordinator Name Role Phone Mireya Baker STUMP SHOOTER-REFLECTOR DRILLER AND DEBURRER Primary Care Provider + Encounter Details Date Type Department Care Team (Late st Contact Info) Description 09/19/2024 Orders Only [facility] - Family Medicine [address] [place] [phone] Ref Prov, [place] [address] Social History Tobacco Use Types Packs/Day Years [...] Diagnosis Comments US PELVIC WITH TRANSVAGINAL Routine 09/11/2024 10:26 AM EST documented in this encounter Results * Ultrasound pelvic with transvaginal (09/11/2024 10:26 AM EST) Anatomical Region Laterality Modality Body, Pelvis Ultrasound [...] documented as of this encounter Care Teams Clinical Unit Coordinator Relationship Specialty Start Date End Date Mireya Baker APRN-REFLECTOR DRILLER AND DEBURRER [address] [place] [address] PCP - General Family Medicine 02/08/25 documented as of this encounter
--- OUTSIDE RECORDS SUMMARY | 2025-06-27 19:23 | XMS_ITS | Encounter Summary ---
Author Organization [facility] [email or web address] [facility] tem Address [facility] [id number] [address] [place] [address] Care Team Providers Care Floor Finisher Name Role Phone Mireya Baker LEAD FRONT DESK AGENT-SCREW MACHINE OPERATOR Primary Care Provider + Encounter Details Date Type Department Care Team (Late st Contact Info) Description 02/21/2024 Orders Only [facility] Internal [facility] - Family Medicine [address] [place] [phone] External, Scanning Provider Social History Tobacco Use [...] Diagnosis Comments US PELVIC WITH TRANSVAGINAL Routine 02/20/2024 10:42 AM EDT documented in this encounter Results * Ultrasound pelvic with transvaginal (02/20/2024 10:42 AM EDT) Anatomical Region Laterality Modality Body, Pelvis Ultrasound us Scanning Provider External IMG US [...] documented as of this encounter Care Teams Floor Finisher Relationship Specialty Start Date End Date Mireya Baker, LEAD FRONT DESK AGENT-SCREW MACHINE OPERATOR [address] [facility] [place] [address] PCP - General Family Medicine 02/08/25 documented as of this encounter
--- OUTSIDE RECORDS SUMMARY | 2025-06-27 19:23 | XMS_ITS | Encounter Summary ---
Author Organization [facility] Address [address] [place] [address] Care Team Providers Care Peoplesoft Name Role Phone Unavailable Primary Care Provider Unavailabl e Encounter Details Date Type Department Care Team (Late st Contact Info) Description 09/11/2024 Clinisync Result Encounter [facility] External Department Unsolicited Alyssa Pretty PA [address] [facility] [address] [place], [place] [address] Social History Tobacco Use Types Packs/Day Years [...] 08/12/2025 8:30 AM EST Office Visit [facility] [address] [facility] [place] [phone] Alyssa Pretty PA [address] [place] [address] [place] [address] documented as of this encounter Procedures Procedure Name Priority Date/Time Associated Diagnosis Comments US OB GROWTH 09/11/2024 12:32 PM EST documented in this encounter Results * US OB GROWTH (09/11/2024 12:32 PM EST) Anatomical Region Laterality Modality Other 09/11/2024 12:3 2 PM EST Narrative 09/11/2024 12:35 [place] [address] Ultrasound Report Signed Patient: ASH MARTINEZ MR#: [id number] : 2000 Acct:[id number] Age/Sex: 23 / F ADM Date: 09/11/24 Loc: [facility] Attending Dr: Alyssa Pretty Ordering Physician: Alyssa Pretty Date of Service: 09/11/24 Procedure(s): US OB growth Accession Number(s): [id number] cc: Alyssa Pretty; ELISA MARES [place] [address] Patient Name: ASH MARTINEZ MRN: [id number] date: 2000 Sex: F Assigned Patient Location: [facility] Current Patient Location: [facility] Accession/Order Number: [id number] Exam Date: 09/11/2024 09:57 Report Date: 09/11/2024 12:32 At the request of: ALYSSA PRETTY Procedure: US OB growth EXAMINATION: US OB growth HISTORY: INCONSISTENT SIZE COMPARISON: No relevant comparison available. FINDINGS: Heart Rate: 151 bpm Amniotic Fluid Volume: 11.9 cm, 3.7 cm Number: 1 Position: Cephalic presentation, longitudinal lie BIOMETRY: BPD: 7.79 cm; 31w2d; 60.30 % HC: 28.70 cm; 31w4d; 40.90 % AC: 27.43 cm; 31w4d; 73.40 % FL: 5.87 cm; 30w5d; 37.40 % EFW: 1739.10 g; 60.50 % FL/AC: 21.40 FL/BPD: 75.35 HC/AC: 1.05 GESTATIONAL AGE: Age by EDC: 30w4d MYESHA by EDC: 2024-11-16 Age by US: 31w2d MYESHA by US: 2024-11-11 US/US OB growth IMPRESSION: Normal interval growth Electronically authenticated by: MARQUES RAMIREZ Date: 09/11/2024 12:32 Dictated By: Marques Ramirez M.D. Signed By: 09/11/24 1235 DD/ 1232 TD/TT: Hospitality Host: Procedure Note Radiology, Radiologist, MD - 09/11/2024 [place] [address] Ultrasound Report Signed Patient: ASH MARTINEZ R#: [id number] : 2000Acct:[id number] Age/Sex: 23 / FADM Date: 09/11/24 Loc: [facility] Attending Dr: Alyssa Pretty Ordering Physician: Alyssa Pretty Date of Service: 09/11/24 Procedure(s): US OB growth Accession Number(s): [id number] cc: Alyssa Pretty; ELISA MARES [place] [id number] Patient Name: ASH MARTINEZ MRN: [id number] date: 2000 Sex: F Assigned Patient Location: [facility] Current Patient Location: [facility] Accession/Order Number: [id number] Exam Date: 09/11/2024 09:57 Report Date: 09/11/2024 12:32 At the request of: ALYSSA PRETTY Procedure: US OB growth EXAMINATION: US OB growth HISTORY: INCONSISTENT SIZE COMPARISON: No relevant comparison available. FINDINGS: Heart Rate: 151 bpm Amniotic Fluid Volume: 11.9 cm, 3.7 cm Number: 1 Position: Cephalic presentation, longitudinal lie BIOMETRY: BPD: 7.79 cm; 31w2d; 60.30 % HC: 28.70 cm; 31w4d; 40.90 % AC: 27.43 cm; 31w4d; 73.40 % FL: 5.87 cm; 30w5d; 37.40 % EFW: 1739.10 g; 60.50 % FL/AC: 21.40 FL/BPD: 75.35 HC/AC: 1.05 GESTATIONAL AGE: Age by EDC: 30w4d MYESHA by EDC: 2024-11-16 Age by US: 31w2d MYESHA by US: 2024-11-11 US/US OB growth IMPRESSION: Normal interval growth Electronically authenticated by: MARQUES RAMIREZ Date: 09/11/2024 12:32 Dictated By: Marques Ramirez M.D. Signed By:09/11/24 1235 DD/ 1232 TD/TT: Hospitality Host: Alyssa ISSA [facility] Final Result documented in this encounter Visit Diagnoses Not on filedocumented in this encounter
--- OUTSIDE RECORDS SUMMARY | 2025-06-27 19:24 | XMS_ITS | Encounter Summary ---
Author Organization [facility] Address [address] [place] [address] Care Team Providers Care Associate Professor Of Automation Name Role Phone Unavailable Primary Care Provider Unavailabl e Encounter Details Date Type Department Care Team (Late Contact Info) Description 11/10/2024 Abstract [facility] [address] [place] [address] Alka Russ, TONNY [address] [place], [place] [phone] Social History Tobacco Use Types Packs/Day Years [...] Encounters Date Type Department Care Team (Late Contact Info) Description 08/12/2025 8:30 AM EST Office Visit [facility] MORGAN [address] [facility] [place] [phone] Alyssa Bazan PA [address] [facility] [address] documented as of this encounter Visit Diagnoses Not on filedocumented in this encounter
--- OUTSIDE RECORDS SUMMARY | 2025-06-27 19:24 | XMS_ITS | Encounter Summary ---
Author Organization [facility] Address [address] [place] [address] Care Team Providers Care Window Shade Cloth Sewer Name Role Phone Unavailable Primary Care Provider Unavailabl e Encounter Details Date Type Department Care Team (Late Contact Info) Description 10/31/2024 Abstract [facility] M[facility]GAN [address] [facility] [place] [phone] Harry Abbasi DO [address] [facility] [address] [place], [place] [address] Social History Tobacco Use Types Packs/Day Years [...] AM EST Office Visit [facility]AN MORGAN [address] [facility] [place] [address] Alyssa Bazan PA [address] [facility] [place] [address] documented as of this encounter Visit Diagnoses Not on filedocumented in this encounter
--- OUTSIDE RECORDS SUMMARY | 2025-06-27 19:24 | XMS_ITS | Encounter Summary ---
Author Organization [facility] Address [address] [place] [address] Care Team Providers Care Pulp Bleacher Name Role Phone Unavailable Primary Care Provider Unavailabl e Encounter Details Date Type Department Care Team (Late Contact Info) Description 05/14/2024 Abstract [facility] MORGAN [address] [facility] [place] [phone] Harry Abbasi DO [address] [facility] [address] [place], [place] [address] Social History Tobacco Use Types Packs/Day Years [...] AM EST Office Visit [facility]AN MORGAN [address] [facility] [place] [address] Alyssa Bazan PA [address] [facility] [place] [address] documented as of this encounter Visit Diagnoses Not on filedocumented in this encounter
--- OUTSIDE RECORDS SUMMARY | 2025-06-27 19:24 | XMS_ITS | Encounter Summary ---
Author Organization [facility] Address [address] [place] [address] Care Team Providers Care Salon Customer Experience Specialist Name Role Phone Unavailable Primary Care Provider Unavailabl e Encounter Details Date Type Department Care Team (Late Contact Info) Description 08/01/2023 Abstract [facility] MORGAN [address] [facility] [phone] Harry Abbasi DO [address] [facility] [address] [place], [place] [address] Social History Tobacco Use Types Packs/Day Years [...] AM EST Office Visit [facility]AN MORGAN [address] [facility] [place] [address] Alyssa Bazan PA [address] [facility] [place] [address] documented as of this encounter Visit Diagnoses Not on filedocumented in this encounter
--- OUTSIDE RECORDS SUMMARY | 2025-06-27 19:24 | XMS_ITS | Encounter Summary ---
Author Organization [facility] Address [address] [place] [address] Care Team Providers Care Relish Maker Name Role Phone Unavailable Primary Care Provider Unavailabl e Encounter Details Date Type Department Care Team (Late Contact Info) Description 05/29/2024 Abstract ADRIAN MORGAN [address] [facility] [phone] Harry Abbasi DO [address] [facility] [address] [place], [place] [address] Social History Tobacco Use Types Packs/Day Years [...] AM EST Office Visit ADRIAN MORGAN [address] [facility] [place] [address] Alyssa Bazan PA [address] [facility] [place] [address] documented as of this encounter Visit Diagnoses Not on filedocumented in this encounter
--- OUTSIDE RECORDS SUMMARY | 2025-06-27 19:24 | XMS_ITS | Clinical Summary ---
Author Organization [facility] Address [address] [place] [address] Care Team Providers Care Account Manager Forest Service Name Role Phone Unavailable Primary Care Provider Unavailabl e Allergies Active Allergy Reactions Criticality Noted Date Comments Ondansetron Rash Low 12/11/2022 Medications citalopram (CeleXA) 20 MG tabletIndicatio ns:Anxiety with depression Take 1 tablet (20 mg) by mouth Daily 30 tablet 11 4 09/25/20 25 Active Additional Information Patient not taking.Reported on 06/27/2025 ibuprofen 800 MG tablet Take 800 mg by mouth every 8 (eight) hours 5 Active metroNIDAZOLE (Flagyl) 500 MG tabletIndicatio ns:Vaginal discharge Take 1 tablet (500 mg) by mouth in the morning and 1 tablet (500 mg) before bedtime. Do all this for 7 days. Do not drink alcohol while taking this medication. 14 tablet 5 07/04/20 25 Active Hospital, Clinic, or Other Facility Administered Medication Ordered Dose Route Frequency Start Date End Date Status etonogestrel-eluting 68 mg contraceptive implant 1 eachIndications:Insertion of Nexplanon 1 each [place] Continuous 12/17/2024 12/17/2027 Active Active Problems Problem Noted Date Diagnosed Date 6 weeks follow-up ([facility]) 5 Postoperative follow-up 12/12/2024 Anxiety with depression 09/25/2024 Resolved Problems Problem Noted Date Diagnosed Date Resolved Date 36 weeks gestation of ([facility]) 10/22/2024 11/09/2024 32 weeks gestation of ([facility]) 09/25/2024 11/09/2024 Third trimester ([facility]) 09/25/2024 11/09/2024 Encounters Date Type Department Care Team Description 06/27/2025 10:40 AM EDT Procedure Visit [facility] [address] [facility] [place] [phone] Harry Abbasi DO Pre-op examination; Request for sterilization; Well woman exam with routine gynecological exam; Exposure to STD; Vaginal discharge; Upper back pain 05/27/2025 10:10 [place] [phone] Harry Abbasi DO Sterilization consult 05/27/2025 Bamboo flowsheet [facility] [address] [place], [place] [address] [phone] Harry Abbasi DO from Last 3 Months Family History Medical History Relation Name Comments Acute myelogenous leukemia Other Relation Name Status Comments Other Social History Tobacco Use Types Packs/Day Years Used Date Smoking Tobacco: Unknown Smokeless Tobacco: Current Tobacco Cessation:Ready to Q uit: Not Asked; Counseling Given: Not Answered Alcohol Use Standard Drinks/Week Comments Never 0 (1 standard drink = 0.6 oz pur e alcohol) Comments Unknown Sex and Gender Information Value Date Recorded Sex Assigned at Female 01/23/2024 11:09 AM EDT Legal Sex Female 6:41 PM EDT Gender Identity Female 01/23/2024 11:09 AM EDT Sexual Orientation Straight 01/23/2024 11 :09 AM EDT Last Filed Vital Signs Vital Sign Reading Time Taken Comments Blood Pressure 100/70 06/27/2025 10:47 AM EDT Pulse - - Temperature - - Respiratory Rate - - Oxygen Saturation - - Inhaled Oxygen Concentration - - Weight 124 kg (274 lb) 06/27/2025 10:47 AM EDT Height 170.2 cm (5' 7 ) 08/01/2023 10:36 AM EDT Body Mass Index 42.91 08/01/2023 10:36 AM EDT Plan of Treatment Upcoming Encounters Date Type Department Care Team (Late st Contact Info) Description 08/12/2025 8:30 AM EST Office Visit [facility] [address] [facility] [place] [address] Alyssa Bazan PA [address] [facility] [place] [address] Health Maintenance Due Date Last Done Comments Influenza Vaccine (#1) 2025 Insurance [employer]
--- OUTSIDE RECORDS SUMMARY | 2025-06-27 19:24 | XMS_ITS | Encounter Summary ---
Author Organization [facility] Address [address] [place] [address] Care Team Providers Care Check And Transfer Beader Name Role Phone Unavailable Primary Care Provider Unavailabl e Encounter Details Date Type Department Care Team (Late st Contact Info) Description 02/20/2024 Clinisync Result Encounter [facility]S External Department Unsolicited Carmen Abbasi DO [address] [facility] [address] [place], [place] [address] Social History Tobacco Use Types Packs/Day Years [...] AM EST Office Visit [facility] MORGAN [address] [facility] [place] [phone] Alyssa Bazan PA [address] [facility] [address] [place], [facility] documented as of this encounter Procedures Procedure Name Priority Date/Time Associated Diagnosis Comments US OB TRANSVAGINAL 02/20/2024 10 :05 AM EDT [facility] PREG QUANT HCG Routine 02/20/2024 9: 36 AM EDT documented in this encounter Results * US OB TRANSVAGINAL (02/20/2024 10:05 AM EDT) Anatomical Region Laterality Modality Other 02/20/2024 10:0 5 AM EDT Narrative 02/20/2024 10:07 [place] [address] Ultrasound Report Signed Patient: ASH MARTINEZ MR#: [id number] : 2000 Acct:[id number] Age/Sex: 23 / F ADM Date: 02/20/24 Loc: LAB Attending Dr: Carmen Abbasi D.O. Ordering Physician: Carmen Abbasi D.O. Date of Service: 02/20/24 Procedure(s): US OB transvaginal Accession Number(s): [id number] cc: Carmen Abbasi D.O.; ELISA MARES [place] [address] Patient Name: ASH MARTINEZ MRN: [facility]:[id number] date: 2000 Sex: F Assigned Patient Location: LAB Current Patient Location: LAB Accession/Order Number: [id number] Exam Date: 02/20/2024 09:15 Report Date: 02/20/2024 10:05 At the request of: CARMEN ABBASI Procedure: US OB transvaginal EXAMINATION: US OB transvaginal HISTORY: With Uncertain Viability O36.80XO COMPARISON: 02/13/24 FINDINGS: No intrauterine or ectopic is observed. The uterus is normal in size, contour and echotexture. Endometrium measures 5.1 mm with a small amount of fluid. The right ovary measures 1.9 x 1.4 x 1.2 cm. Normal color flow. Left ovary measures 2.1 x 1.8 x 1.3 cm. Normal color flow No free fluid US/US OB transvaginal IMPRESSION: No intrauterine or ectopic identified Electronically authenticated by: MARQUES RAMIREZ Date: 02/20/2024 10:05 Dictated By: Marques Ramirez M.D. Signed By: 02/20/24 1007 DD/ 1005 TD/TT: Building Maintenance Engineer: Procedure Note Radiology, Radiologist, MD - 02/20/2024 [place] [address] Ultrasound Report Signed Patient: ASH MARTINEZ KMR#: [id number] : 2000Acct:[id number] Age/Sex: 23 / FADM Date: 02/20/24 Loc: LAB Attending Dr: Carmen Abbasi D.O. Ordering Physician: Carmen Abbasi D.O. Date of Service: 02/20/24 Procedure(s): US OB transvaginal Accession Number(s): [id number] cc: Carmen Abbasi D.O.; ELISA MARES [place] [address] Patient Name: ASH MARTINEZ MRN: [id number] date: 2000 Sex: F Assigned Patient Location: LAB Current Patient Location: LAB Accession/Order Number: [id number] Exam Date: 02/20/2024 09:15 Report Date: 02/20/2024 10:05 At the request of: CARMEN ABBASI Procedure: US OB transvaginal EXAMINATION: US OB transvaginal HISTORY: With Uncertain Viability O36.80XO COMPARISON: 02/13/24 FINDINGS: No intrauterine or ectopic is observed. The uterus is normal in size, contour and echotexture. Endometrium measures 5.1 mm with a small amount of fluid. The right ovary measures 1.9 x 1.4 x 1.2 cm. Normal color flow. Left ovary measures 2.1 x 1.8 x 1.3 cm. Normal color flow No free fluid US/US OB transvaginal IMPRESSION: No intrauterine or ectopic identified Electronically authenticated by: MARQUES RAMIREZ Date: 02/20/2024 10:05 Dictated By: Marquse Ramirez M.D. Signed By:02/20/24 1007 DD/ 1005 TD/TT: Building Maintenance Engineer: us Carmen Ayleen DO [facility] Final Result * [facility] PREG QUANT HCG (02/20/2024 9:36 AM EDT) HCG QUANTITATIVE 12 mIU/mL [facility] Comment: 5-50 0.2-1 WEEK 50-500 1-2 WEEKS 100-5,000 2-3 WEEKS 500-10,000 3-4 WEEKS 1,000-50,000 4-5 WEEKS 10,000-100,000 5-6 WEEKS 15,000-200,000 6-8 WEEKS 10,000-100,000 2-3 MONTHS 02/20/2024 9:36 AM EDT 02/20/2024 9:46 AM EDT Narrative [facility] - 02/20/2024 12:01 PM EDT us Carmen Ayleen DO [facility] Final Result [facility] documented in this encounter Visit Diagnoses Not on filedocumented in this encounter
--- OUTSIDE RECORDS SUMMARY | 2025-06-27 19:24 | XMS_ITS | Encounter Summary ---
Author Organization [facility] Address [address] [place] [address] Care Team Providers Care Digital Account Coordinator Name Role Phone Unavailable Primary Care Provider Unavailabl e Encounter Details Date Type Department Care Team (Late Contact Info) Description 05/18/2024 Abstract [facility] [address] [facility] [place] [phone] Harry Abbasi DO [address] [facility] [address] [place], [place] [address] Social History Tobacco Use Types Packs/Day Years [...] AM EST Office Visit [facility] MORGAN [address] [facility] [place] [address] Alyssa Bazan PA [address] [facility] [place] [address] documented as of this encounter Visit Diagnoses Not on filedocumented in this encounter
--- OUTSIDE RECORDS SUMMARY | 2025-06-27 19:24 | XMS_ITS | Encounter Summary ---
Author Organization [facility] tem Address [id number] [address] [place] [address] Care Team Providers Care Residential Lawn Specialist Name Role Phone Mireya Baker Valentín ROSENTHAL-IMPORT DISPATCHER Primary Care Provider + Encounter Details Date Type Department Care Team (Late st Contact Info) Description 12/30/2023 Telephone [facility] Internal Medicine - Family Medicine [address] [place] [phone] Lisa Paniagua, DIONE Social History Tobacco Use Types Packs/Day Years [...] PHQ-2 Answer Date Recorded Total Score 0 12/20/2023 Childcare Answer Date Recorded Childcare Unknown 03/21/2019 Employment Answer Date Recorded Employment Unknown 03/21/2019 Hunger Screening Answer Date Recorded Within the past 12 months we worried whether our food would run out before we got money to buy more. Never True 12/20/2023 Within the past 12 months th e food we bought just didn't last and we didn't have money to get more. Never True 12/20/2023 Purpose - Life Answer Date Recorded Purpose and direction in life Unknown Comments No Sex and Gender Information Value Date Recorded Sex Assigned at Not on file Legal Sex Female 12:02 PM EDT Gender Identity Not on file Sexual Orientation Not on file documented as of this encounter Miscellaneous Notes * Telephone Encounter - Lisa Paniagua CMA - 12/30/2023 10:24 AM EDT Patient called and stated that her insurance would not get credit for her yearly wellness because it needed a 25 modifier * Telephone Encounter - JOHN Thrasher - 12/30/2023 10:24 AM EDT I have no idea what this means * Telephone Encounter - Lisa Paniagua CMA - 12/30/2023 10:24 AM EDT The patient said the insurance gives her credit on a medical card for medications over the counter ect if she completes her yearly wellness and they told her that they did not credit her because the visit for her wellness needed a 25 modifier on it. * Telephone Encounter - JOHN Thrasher - 12/30/2023 10:24 AM EDT I looked back, I didn't bill it as a wellness because I had billed her initial visit to get established in September as a wellness. If this can be billed as a wellness I can likely go thru a process and rebill it but usually it can't be billed this way within a year * Telephone Encounter - Lisa Paniagua CMA - 12/30/2023 10:24 AM EDT Spoke to patient and she is going to reach back out to her insurance company. documented in this encounter Plan of Treatment Not on file documented as of this encounter Visit Diagnoses Not on filedocumented in this encounter Additional Health Concerns Infection Onset Date Last Indicated Resolved Time Respiratory Rule-Out 02/08/2025 02/08/2025 025 9:13 AM EDT Assessment Noted Time PHQ-9 Depression Total Score: 0 12/20/19 24 3:27 PM EDT A Body Mass Index follow-up plan has been documented for the patient 09/14/2023 10:11 AM EST documented as of this encounter Care Teams Residential Lawn Specialist Relationship Specialty Start Date End Date Mireya Baker APRN-IMPORT DISPATCHER [address] [place] [address] PCP - General Family Medicine 02/08/25 documented as of this encounter
--- OUTSIDE RECORDS SUMMARY | 2025-06-27 19:24 | XMS_ITS | Encounter Summary ---
Author Organization [facility] Address [address] [place] [address] Care Team Providers Care Property Site Manager Name Role Phone Unavailable Primary Care Provider Unavailabl e Encounter Details Date Type Department Care Team (Late Contact Info) Description 05/11/2024 Abstract [facility] [address] [facility] [place] [phone] Harry Abbasi DO [address] [facility] [address] [place], [place] [address] Social History Tobacco Use Types Packs/Day Years [...] AM EST Office Visit [facility] MORGAN [address] [facility] [place] [address] Alyssa Bazan PA [address] [facility] [place] [address] documented as of this encounter Visit Diagnoses Not on filedocumented in this encounter
--- OUTSIDE RECORDS SUMMARY | 2025-06-27 19:24 | XMS_ITS | Encounter Summary ---
Author Organization [facility] Address [address] [place] [address] Care Team Providers Care Ledge Man Name Role Phone Unavailable Primary Care Provider Unavailabl e Encounter Details Date Type Department Care Team (Late st Contact Info) Description 09/29/2024 Clinisync Result Encounter [facility] External Department Unsolicited Carmen Abbasi DO [address] [facility] [address] [place]ocha, [place] [address] Social History Tobacco Use Types Packs/Day Years [...] AM EST Office Visit NOMCecil MORGAN [address] [facility] [place] [phone] Alyssa Bazan PA [address] [facility] [address] [place], [facility]11 documented as of this encounter Procedures Procedure Name Priority Date/Time Associated Diagnosis Comments US OB BPP W NON-STRESS 09/29/2024 4:08 PM EST documented in this encounter Results * US OB BPP W NON-STRESS (09/29/2024 4:08 PM EST) Anatomical Region Laterality Modality Other 09/29/2024 4:08 PM EST Narrative 09/29/2024 4:11 [place] [address] Ultrasound Report Signed Patient: ASH MARTINEZ MR#: [id number] : 2000 Acct:[id number] Age/Sex: 23 / F ADM Date: 09/29/24 Loc: [facility] Attending Dr: Carmen Abbasi D.O. Ordering Physician: Carmen Abbasi D.O. Date of Service: 09/29/24 Procedure(s): US OB BPP w non-stress Accession Number(s): [id number] cc: Carmen Abbasi D.O.; ELISA MARES [place] [id number] Patient Name: ASH MARTINEZ MRN: [id number] date: 2000 Sex: F Assigned Patient Location: [facility] Current Patient Location: Accession/Order Number: [id number] Exam Date: 09/29/2024 14:10 Report Date: 09/29/2024 16:08 At the request of: CARMEN ABBASI Procedure: US OB BPP w non-stress EXAM: US OB BPP w non-stress HISTORY: decreased movement COMPARISON: OB ultrasound 09/11/2024 and earlier. TECHNIQUE: ultrasound biophysical profile. FINDINGS: Single fetus cephalic presentation. Heart rate 130 bpm. WARREN 10.1 cm, deepest pocket 4.4 cm. movement: 2 tone: 2 breathin Amniotic fluid: 2 Total score 8/8. US/US OB BPP w non-stress IMPRESSION: Biophysical profile score 8/8. Electronically authenticated by: ESTIVEN PANDEY Date: 09/29/2024 16:08 Dictated By: Estiven Pandey M.D. Signed By: 09/29/24 1611 DD/ 1608 TD/TT: Labeling Specialist: Procedure Note Radiology, Radiologist, - 09/29/2024 [place] [address] Ultrasound Report Signed Patient: ASH MARTINEZ KMR#: [id number] : 2000Acct:[id number] Age/Sex: Date: 09/29/24 Loc: [facility] Attending Dr: Carmen Abbasi D.O. Ordering Physician: Carmen Abbasi D.O. Date of Service: 09/29/24 Procedure(s): US OB BPP w non-stress Accession Number(s): [id number] cc: Carmen Abbasi D.O.; ELISA MARES [place] [address] Patient Name: ASH MARTINEZ MRN: [facility]:[id number] date: 2000 Sex: F Assigned Patient Location: [facility] Current Patient Location: Accession/Order Number: [id number] Exam Date: 09/29/2024 14:10 Report Date: 09/29/2024 16:08 At the request of: CARMEN ABBASI Procedure: US OB BPP w non-stress EXAM: US OB BPP w non-stress HISTORY: decreased movement COMPARISON: OB ultrasound 09/11/2024 and earlier. TECHNIQUE: ultrasound biophysical profile. FINDINGS: Single fetus cephalic presentation. Heart rate 130 bpm. WARREN 10.1cm, deepest pocket 4.4 cm. movement: 2 tone: 2 breathin Amniotic fluid: 2 Total score 8/8. US/US OB BPP w non-stress IMPRESSION: Biophysical profile score 8/8. Electronically authenticated by: ESTIVEN PANDEY Date: 6:08 Dictated By: Estiven Pandey M.D. Signed By:09/29/24 1611 DD/ 1608 TD/TT: Labeling Specialist: us Carmen Abbasi DO [facility] Final Result documented in this encounter Visit Diagnoses Not on filedocumented in this encounter
--- OUTSIDE RECORDS SUMMARY | 2025-06-27 19:24 | XMS_ITS | Encounter Summary ---
Author Organization [facility] Address [address] [place] [address] Care Team Providers Care Bung Dropper Name Role Phone Unavailable Primary Care Provider Unavailabl e Encounter Details Date Type Department Care Team (Late Contact Info) Description 04/18/2024 Abstract ADRIAN MORGAN [address] [facility] [place] [phone] Harry Abbasi DO [address] [facility] [address] [place], [place] [address] Social History Tobacco Use Types Packs/Day Years [...] AM EST Office Visit ADRIAN MORGAN [address] [place] [address] Alyssa Bazan PA [address] [facility] [place] [address] documented as of this encounter Visit Diagnoses Not on filedocumented in this encounter"
--- OUTSIDE RECORDS SUMMARY | 2025-06-27 19:24 | XMS_ITS | Encounter Summary ---
Author Organization [facility] Address [address] [place] [address] Care Team Providers Care Composite Bond Worker Name Role Phone Unavailable Primary Care Provider Unavailabl e Encounter Details Date Type Department Care Team (Late st Contact Info) Description 04/18/2024 Clinisync Result Encounter [facility]S External Department Unsolicited Carmen Abbasi DO [address] [facility] [address] [place], [place] [address] Social History Tobacco Use Types Packs/Day Years [...] AM EST Office Visit NOMCecil MORGAN [address] [facility] [place] [phone] Alyssa Bazan PA [address] [facility] [address] [place], [facility]11 documented as of this encounter Procedures Procedure Name Priority Date/Time Associated Diagnosis Comments US OB TRANSVAGINAL 04/18/2024 10 :56 AM EDT documented in this encounter Results * US OB TRANSVAGINAL (04/18/2024 10:56 AM EDT) Anatomical Region Laterality Modality Other 04/18/2024 10:5 6 AM EDT Narrative 04/18/2024 10:59 [place] [address] Ultrasound Report Signed Patient: ASH MARTINEZ MR#: [id number] : 2000 Acct:[id number] Age/Sex: 23 / F ADM Date: 04/18/24 Loc: [facility] Attending Dr: Carmen Abbasi D.O. Ordering Physician: Carmen Abbasi D.O. Date of Service: 04/18/24 Procedure(s): US OB transvaginal Accession Number(s): [id number] cc: Carmen Abbasi D.O.; ELISA MARES [place] [id number] Patient Name: ASH MARTINEZ MRN: [id number] date: 2000 Sex: F Assigned Patient Location: [facility] Current Patient Location: [facility] Accession/Order Number: [id number] Exam Date: 04/18/2024 10:00 Report Date: 04/18/2024 10:56 At the request of: CARMEN ABBASI Procedure: US OB transvaginal EXAMINATION: US OB transvaginal HISTORY: VIABILITY COMPARISON: No relevant comparison available. FINDINGS: Transvaginal images Garg intrauterine gestation Gestational sac: Normal morphology, 3.36 cm, 8 weeks 3 days CRL: 2.4 cm, 9 weeks 4 days Yolk sac: 4.7 mm Heart rate: 175 bpm Uterus is normal, anteverted, anteflexed The right ovary is normal measuring 2.6 x 1.8 x 3.1 cm. The left ovary measures 5.3 x 4.5 x 4.0 cm, corpus luteal cyst. Cervix is closed measuring 4.7 cm Clinical age: Unknown Ultrasound age: 9 weeks 4 days Ultrasound MYESHA: 11/17/2024 US/US OB transvaginal IMPRESSION: Viable garg intrauterine gestation measuring 9 weeks 4 days Electronically authenticated by: MARQUES RAMIREZ Date: 04/18/2024 10:56 Dictated By: Marques Ramirez M.D. Signed By: 04/18/24 1059 DD/ 1056 TD/TT: Web Press Operator: Procedure Note Radiology, Radiologist, MD - 04/18/2024 [place] [address] Ultrasound Report Signed Patient: ASH MARTINEZ KMR#: [id number] : 2000Acct:[id number] Age/Sex: 23 / FADM Date: 04/18/24 Loc: [facility] Attending Dr: Carmen Abbasi D.O. Ordering Physician: Carmen Abbasi D.O. Date of Service: 04/18/24 Procedure(s): US OB transvaginal Accession Number(s): [id number] cc: Carmen Abbasi D.O.; ELISA MARES [place] [address] Patient Name: ASH MARTINEZ MRN: [id number] date: 2000 Sex: F Assigned Patient Location: [facility] Current Patient Location: [facility] Accession/Order Number: [id number] Exam Date: 04/18/2024 10:00 Report Date: 04/18/2024 10:56 At the request of: CARMEN ABBASI Procedure: US OB transvaginal EXAMINATION: US OB transvaginal HISTORY: VIABILITY COMPARISON: No relevant comparison available. FINDINGS: Transvaginal images Garg intrauterine gestation Gestational sac: Normal morphology, 3.36 cm, 8 weeks 3 days CRL: 2.4 cm, 9 weeks 4 days Yolk sac: 4.7 mm Heart rate: 175 bpm Uterus is normal, anteverted, anteflexed The right ovary is normal measuring 2.6 x 1.8 x 3.1 cm. The left ovary measures 5.3 x 4.5 x 4.0 cm, corpus luteal cyst. Cervix is closed measuring 4.7 cm Clinical age: Unknown Ultrasound age: 9 weeks 4 days Ultrasound MYESHA: 11/17/2024 US/US OB transvaginal IMPRESSION: Viable garg intrauterine gestation measuring 9 weeks 4 days Electronically authenticated by: MARQUES RAMIREZ Date: 04/18/2024 10:56 Dictated By: Marques Ramirez M.D. Signed By:04/18/24 1059 DD/ 1056 TD/TT: Web Press Operator: us Carmen Ayleen DO [facility] Final Result documented in this encounter Visit Diagnoses Not on filedocumented in this encounter
--- OUTSIDE RECORDS SUMMARY | 2025-06-27 19:24 | XMS_ITS | Encounter Summary ---
Author Organization [facility] Address [address] [place] [address] Care Team Providers Care Financial Internship Name Role Phone Unavailable Primary Care Provider Unavailabl e Encounter Details Date Type Department Care Team (Late Contact Info) Description 05/30/2024 Abstract ADRIAN MORGAN [address] [facility] [place] [phone] Harry Abbasi DO [address] [facility] [address] [place], [place] [address] Social History Tobacco Use Types Packs/Day Years [...] AM EST Office Visit ADRIAN MORGAN [address] [facility] [place] [address] Alyssa Bazan PA [address] [facility] [place] [address] documented as of this encounter Visit Diagnoses Not on filedocumented in this encounter
--- OUTSIDE RECORDS SUMMARY | 2025-06-27 19:24 | XMS_ITS | Encounter Summary ---
Author Organization [facility] Address [address] [place] [address] Care Team Providers Care Cream Beater Name Role Phone Unavailable Primary Care Provider Unavailabl e Encounter Details Date Type Department Care Team (Late Contact Info) Description 05/18/2024 Abstract ADRIAN MORGAN [address] [facility] [place] [phone] Harry Abbasi DO [address] [facility] [address] [place], [place] [address] Social History Tobacco Use Types Packs/Day Years [...] [address] [facility] [place] [address] Alyssa Bazan PA [address] [facility] [place] [address] documented as of this encounter Visit Diagnoses Not on filedocumented in this encounter
--- OUTSIDE RECORDS SUMMARY | 2025-06-27 19:24 | XMS_ITS | Clinical Summary ---
Author [facility] Address [id number] [address] [place] [address] Care Team Providers Care Diathermy Equipment Repairer Name Role Phone Mireya Baker CLOTH BALE HEADER-MATERIAL HANDLING EQUIPMENT STEVEDORE Primary Care Provider + Allergies Active Allergy Reactions Criticality Noted Date Comments Ondansetron Hcl Rash Low 12/11/2022 Medications 21-IRON FU-FOLIC ACID ORAL Take by mouth once daily. Active fluticasone propionate (FLONASE) 50 mcg/actuation nasal spray Administer 2 sprays into each nostril in the morning. 16 g 4 Active FLUoxetine (PROzac) 10 mg capsule Take 1 capsule (10 mg total) by mouth in the morning. Active Active Problems No known active problems Encounters Date Type Department Care Team Description 04/04/2025 7:59 PM EDT - 04/04/2025 9:08 PM EDT Emergency [facility] - Emergency [address] [place] [phone] Laceration of right lower extremity, initial encounter (Primary Dx); Need for tetanus booster Discharge Disposition: Home 04/04/2025 Travel from Last 3 Months Immunizations Immunization Administration Dates Next Due DTaP 06/22/2004 DTaP / Hep B / IPV 12/20/2003,11/11/2003, 003 DTaP, Unspecified 01/22/2014 Hep B, Adolescent or Pediatric 2002 Hib (PRP-T) 06/22/2004,12/20/2003,11/11/2003 ,05/31/2003 MMR 12/20/2003 Pneumococcal Conjugate 06/22/2004,11/11/2003, Tdap 04/04/2025,11/13/2019 Varicella 12/20/2003 Family History Medical History Relation Name Comments No Known Problems Brother ravi No Known Problems Daughter Post-traumatic stress disorder Father Anxiety disorder Mother Depression Sister 1 rea No Known Problems Sister 2 viridiana Relation Name Status Comments Brother ravi Alive Daughter Alive Father Alive Mother Alive Sister 1 rea Alive Sister 2 viridiana Alive Social History Tobacco Use Types Packs/Day Years Used Date Smoking Tobacco: Never Smokeless Tobacco: Never Tobacco Cessation:Counseling Given: Not Answered Alcohol Use Standard Drinks/Week [...] got money to buy more. Never True 02/08/2025 Within the past 12 months th e food we bought just didn't last and we didn't have money to get more. Never True 02/08/2025 Purpose - Life Answer Date Recorded Purpose and direction in life Unknown Comments No Sex and Gender Information Value Date Recorded Sex Assigned at Not on file Legal Sex Female 12:02 PM EDT Gender Identity Not on file Sexual Orientation Not on file Last Filed Vital Signs Vital Sign Reading Time Taken Comments Blood Pressure 127/70 04/04/2025 8:03 PM EDT Pulse 64 04/04/2025 8:03 PM EDT Temperature 36.7 C (98.1 F) 04/04/2025 8:03 PM EDT Respiratory Rate 20 04/04/2025 8:03 PM EDT Oxygen Saturation 98% 04/04/2025 8:03 PM EDT Inhaled Oxygen Concentration - - Weight 108.9 kg (240 lb) 04/04/2025 8:03 PM EDT Height 170.2 cm (5' 7 ) 04/04/2025 8:03 PM EDT Body Mass Index 37.59 04/04/2025 8:03 PM EDT Plan of Treatment Health Maintenance Due Date Last Done Comments Adult BMI Follow Up Plan 09/14/2024 09/14/2023 Depression Screening 07/04/2025 07/04/2024 Adult BMI Screening 04/04/2026 04/04/2025 Tobacco Screening 04/04/2026 04/04/2025 Pap Smear 05/29/2027 05/29/2024, 11/16/2022 DTaP,Tdap and Td Vaccines (8 - Td or Tdap) 04/04/2035 04/04/2025, 11/13/2019, 01/22/2014, Additional history exists COVID-19 Vaccine Discontinued 01/14/2022, 02/27/2021 Chlamydia Screening Discontinued Influenza Vaccine Discontinued Medical Devices Not on file Procedures Procedure Name Priority Date/Time Associated Diagnosis Comments PM ED LACERATION REPAIR Routine 04/04/2025 8:53 PM EDT from Last 3 Months Results * Laceration Repair (04/04/2025 8:53 PM EDT) Narrative Karen Locke APRN-CNP - 04/04/2025 8:53 PM EDT MARY Rossi 04/04/2025 8:55 PM Laceration Repair Date/Time: 04/04/2025 8:53 PM Performed by: MARY Rossi Authorized by: MARY Rossi Consent: Consent obtained: Verbal Consent given by: Patient Risks, benefits, and alternatives were discussed: yes Risks discussed: Tendon damage, retained foreign body, poor cosmetic result, pain, infection, need for additional repair, nerve damage, poor wound healing and vascular damage Alternatives discussed: No treatment, delayed treatment, observation and referral Rodney protocol: Procedure explained and questions answered to patient or proxy's satisfaction: yes Immediately prior to procedure, a time out was called: yes Patient identity confirmed: Verbally with patient Anesthesia: Anesthesia method: Local infiltration Local anesthetic: Lidocaine 1% w/o epi Laceration details: Location: Leg Leg location: R upper leg Length (cm): 2 Pre-procedure details: Preparation: Patient was prepped and draped in usual sterile fashion Exploration: Limited defect created (wound extended): no Treatment: Area cleansed with: Chlorhexidine Amount of cleaning: Standard Skin repair: Repair method: Sutures Suture size: 3-0 Suture material: Nylon Suture technique: Simple interrupted Number of sutures: 3 Approximation: Approximation: Close Repair type: Repair type: Simple Post-procedure details: Dressing: Open (no dressing) Procedure completion: Tolerated well, no immediate complications Karen Locke CLOTH BALE HEADER-MATERIAL HANDLING EQUIPMENT STEVEDORE PROCEDURE/MINOR SURGICAL O RDERABLES Final Result from Last 3 Months Insurance [place] WORKERS COMPENSATION [place] Care Teams Diathermy Equipment Repairer Relationship Specialty Start Date End Date Mireya Baker, CLOTH BALE HEADER-MATERIAL HANDLING EQUIPMENT STEVEDORE [address] [place] [address] PCP - General Family Medicine 02/08/25
--- OUTSIDE RECORDS SUMMARY | 2025-06-27 19:24 | XMS_ITS | Encounter Summary ---
Author Organization [facility] Address [address] [place] [address] Care Team Providers Care Natural Science Manager Name Role Phone Unavailable Primary Care Provider Unavailabl e Encounter Details Date Type Department Care Team (Late Contact Info) Description 05/17/2024 Abstract ADRIAN MORGAN [address] [facility] [place] [phone] Harry Abbasi DO [address] [facility] [address] [place], [place] [address] Social History Tobacco Use Types Packs/Day Years [...] AM EST Office Visit ADRIAN MORGAN [address] [facility] [place] [address] Alyssa Bazan PA [address] [facility] [place] [address] documented as of this encounter Visit Diagnoses Not on filedocumented in this encounter
--- OUTSIDE RECORDS SUMMARY | 2025-06-27 19:24 | XMS_ITS | Encounter Summary ---
Author Organization [facility] Address [address] [place] [address] Care Team Providers Care Bucket Turner Name Role Phone Unavailable Primary Care Provider Unavailabl e Encounter Details Date Type Department Care Team (Late Contact Info) Description 05/30/2024 Abstract ADRIAN MORGAN [address] [facility] [place] [phone] Harry Abbasi DO [address] [facility] [address] [place], [place] [address] Social History Tobacco Use Types Packs/Day Years [...] [address] [facility] [place] [address] Alyssa Bazan PA [address] [facility] [place] [address] documented as of this encounter Visit Diagnoses Not on filedocumented in this encounter
--- OUTSIDE RECORDS SUMMARY | 2025-06-27 19:24 | XMS_ITS | Encounter Summary ---
Author Organization [facility] Address [address] [place] [address] Care Team Providers Care Greenhouse Manager Name Role Phone Unavailable Primary Care Provider Unavailabl e Encounter Details Date Type Department Care Team (Late Contact Info) Description 11/09/2024 Abstract ADRIAN MORGAN [address] [facility] [phone] Harry Abbasi DO [address] [facility] [address] [place], [place] [address] Social History Tobacco Use Types Packs/Day Years [...] Office Visit ADRIAN MORGAN [address] [facility] [place] [address] Alyssa Bazan PA [address] [place] [address] documented as of this encounter Visit Diagnoses Not on filedocumented in this encounter
--- OUTSIDE RECORDS SUMMARY | 2025-06-27 19:24 | XMS_ITS | Encounter Summary ---
Author Organization [facility] tem Address [id number] [address] [place] [address] Care Team Providers Care Deputy Fire Marshal Name Role Phone Mireya Baker Valentín ROSENTHAL-ASSOCIATE DESIGNER Primary Care Provider + Encounter Details Date Type Department Care Team (Late st Contact Info) Description 09/16/2023 Orders Only [facility] Internal Medicine - Family Medicine [address] [place] [phone] Summer Davalos, GARDEN IMPLEMENT MECHANIC-HOUSING COUNSELOR [address] [facility] [place] [address] Social History Tobacco Use Types Packs/Day Years [...] PHQ-2 Answer Date Recorded Total Score 0 09/14/2023 Childcare Answer Date Recorded Childcare Unknown 03/21/2019 Employment Answer Date Recorded Employment Unknown 03/21/2019 Hunger Screening Answer Date Recorded Within the past 12 months we worried whether our food would run out before we got money to buy more. Never True 09/14/2023 Within the past 12 months th e food we bought just didn't last and we didn't have money to get more. Never True 09/14/2023 Purpose - Life Answer Date Recorded Purpose [...] Procedure Name Priority Date/Time Associated Diagnosis Comments URINALYSIS Routine 08/31/2023 9:56 AM EST documented in this encounter Results * Urinalysis (08/31/2023 9:56 AM EST) us Scanning Provider External URINE ORDERABLES Dariela granados Result MANUALLY TRANSCRIBED RESULTS documented in this encounter Visit Diagnoses Not on filedocumented in this encounter Additional Health Concerns Infection Onset Date Last Indicated Resolved Time Respiratory Rule-Out 02/08/2025 02/08/2025 025 9:13 AM EDT Assessment Noted Time PHQ-9 Depression Total Score: 0 09/14/20 23 9:16 AM EST A Body Mass Index follow-up plan has been documented for the patient 09/14/2023 10:11 AM EST documented as of this encounter Care Teams Deputy Fire Marshal Relationship Specialty Start Date End Date Mireya Baker, GALO-ASSOCIATE DESIGNER [address] [place] [address] PCP - General Family Medicine 02/08/25 documented as of this encounter
[2025-07-04 13:08] LABS: Age Gdln ACOG Testing Note (.); IGP, rfx Aptima HPV ASCU Note (.)
== END 2025-06-27 19:21 | disposition home or self-care (01) ==
LOC: LAB 19:20
PROVIDERS: PCP Nurse Practitioner Family; Visit Provider Obstetrics & Gynecology
DX: Z01.419 Encounter for gynecological examination (general) (routine) without abnormal findings (principal)
CPT/HCPCS: 88175

== ENCOUNTER 2025-07-23 10:03 | Outpatient (OUT) | payer OTHER, SELFPAY ==
--- OUTSIDE RECORDS SUMMARY | 2024-12-27 04:45 | XMS_ITS ---
Author Organization [facility] vices Address [address] [place] [phone] Care Team Providers Care Chiropractic Teacher Name Role Phone MendozaMarilu ruiztany Unavailable [phone] Magnolia Burns Unavailable [phone] REASON FOR VISIT Recall (A) (22) Medications Medication SIG (Take, Route, Frequency, Duration) Notes Start Date End Date Status Progesterone Micronized - ; Duration: 30 Days Active Lo Loestrin Fe 1 MG-10 MCG / 10 MCG Oral; Duration: 28 Days Acti ve Social History Sex Assigned At : Social History Observation Description Sex Assigned At Female Encounters Encounter Location Date Provider Diagnosis [facility] [address] [place], [place] [phone] 12/27/2024 Magnolia Burns Plan Of Treatment Next Appt Details Provider Name:Nieves Tena sherman, 02/04/2026 03:15:00 PM, [address] [place], [place], [phone], Progress Notes * Edson MARTINEZOB: 3 (24 yo F)Acc No.[id number]:12/27/2024 Patient: Herberth Ash COPE Provider: Adelia Burns DDS :2000 A ge:24 Y S ex:Female Date:12/27/2024 Address:[address] [place] [id number] Subjective: * Chief Complaints: * 1 . Recall (A) (22). * Medical History: * Medications: T philipg Lo Loestrin Fe 1 MG-10 MCG / 10 MCG Tablet Oral , Taking Progesterone Micronized - Powder Objective: * Vitals: Assessment: Plan: * Treatment: * Billing Information: * Visit Code: * Procedure Codes: * Electronic signature of Dylan Burns DDS on 07/23/2025 at 10:07 AM EDT Sign off status: Pending * Provider: Adelia Burns DDS Date: 0 12/27/2024 Generated for Hung rouse/Geremias/Yon on: 10:07 AM EDT
--- OUTSIDE RECORDS SUMMARY | 2025-06-26 06:15 | XMS_ITS ---
Author Organization [facility] vices Address [address] [place] [phone] Care Team Providers Care Compensation Associate Name Role Phone Billy Mendozay Unavailable [phone] Alicia Correia Unavailable [phone] REASON FOR VISIT Periodic Exam Poss. Prophy (A) (24) Social History Sex Assigned At : Social History Observation Description Sex Assigned At Female Encounters Encounter Location Date Provider Diagnosis [facility] [address] [place] [phone] 06/26/2025 Alicia Correia Plan Of Treatment Next Appt Details Provider Name:Nieves Alejandrochaim sherman, 02/04/2026 03:15:00 PM, [address] [place] [address], [phone], Progress Notes * Edson MARTINEZOB: 3 (24 yo F)Acc No.[id number]:06/26/2025 Patient: Herberth GOMEZCecilJamesAsh Provider: Eric Correia DDS Resource:Cailin Platt RDH :2000 A ge:24 Y S ex:Female Date:06/26/2025 Address:[address] [place] [phone] Subjective: * Chief Complaints: * 1 . Periodic Exam Poss. Prophy (A) (24). * Medical History: Objective: * Vitals: Assessment: Plan: * Treatment: * Billing Information: * Visit Code: * Procedure Codes: * Electronic signature of Cameron Correia DDS on 07/23/2025 at 10:05 AM EDT Sign off status: Pending * Provider: Eric Correia DDS Date: 0 06/26/2025 Generated for Hung rouse/Geremias/Yon on: 1 10:05 AM EDT
--- OUTSIDE RECORDS SUMMARY | 2025-07-23 10:06 | XMS_ITS | Encounter Summary ---
Author Organization [facility] tem Address [id number] [address] [place] [address] Care Team Providers Care Mathematical Statistician Name Role Phone Mireya Baker QC SCIENTIST-CAR CONSTRUCTION SUPERINTENDENT Primary Care Provider + Encounter Details Date Type Department Care Team (Late st Contact Info) Description 05/11/2024 Orders Only [facility] Internal Medicine - Family Medicine [address] [place] [phone] Ref Prov, [place] [address] Social History Tobacco Use Types Packs/Day Years [...] documented as of this encounter Care Teams Mathematical Statistician Relationship Specialty Start Date End Date Mireya Baker APRN-CAR CONSTRUCTION SUPERINTENDENT [address] [place] [address] PCP - General Family Medicine 06/28/25 documented as of this encounter
--- OUTSIDE RECORDS SUMMARY | 2025-07-23 10:06 | XMS_ITS | Encounter Summary ---
Author Organization [facility] Address [address] [place] [address] Care Team Providers Care Avionics Integration Engineer Name Role Phone Unavailable Primary Care Provider Unavailabl e Encounter Details Date Type Department Care Team (Late Contact Info) Description 11/09/2024 Abstract ADRIAN MORGAN [address] [facility] [place] [phone] Harry Abbasi DO [address] [facility] [address] [place], [place] [address] Social History Tobacco Use Types Packs/Day Years [...] [address] [facility] [address] Alyssa Bazan PA [address] [facility] [place] [address] documented as of this encounter Visit Diagnoses Not on filedocumented in this encounter
--- OUTSIDE RECORDS SUMMARY | 2025-07-23 10:06 | XMS_ITS | Encounter Summary ---
Author Organization [facility] Address [address] [place] [address] Care Team Providers Care Gun Examiner Name Role Phone Unavailable Primary Care Provider Unavailabl e Encounter Details Date Type Department Care Team (Late Contact Info) Description 05/30/2024 Abstract ADRIAN MORGAN [address] [place] [phone] Harry Abbasi DO [address] [facility] [address] [place], [place] [address] Social History Tobacco Use Types Packs/Day Years [...] AM EST Office Visit ADRIAN MORGAN [address] [place] [address] Alyssa Bazan PA [address] [place] [address] documented as of this encounter Visit Diagnoses Not on filedocumented in this encounter
--- OUTSIDE RECORDS SUMMARY | 2025-07-23 10:06 | XMS_ITS | Encounter Summary ---
Author Organization [facility] Address [address] [place] [address] Care Team Providers Care Compressor House Operator Name Role Phone Unavailable Primary Care Provider Unavailabl e Encounter Details Date Type Department Care Team (Late Contact Info) Description 05/11/2024 Abstract ADRIAN MORGAN [address] [place] [phone] Harry Abbasi DO [address] [facility] [address] Lisa [place]ocha, [place] [address] Social History Tobacco Use Types Packs/Day Years [...] AM EST Office Visit ADRIAN MORGAN [address] [place] [address] Alyssa Bazan PA [address] [facility] [place] [address] documented as of this encounter Visit Diagnoses Not on filedocumented in this encounter
--- OUTSIDE RECORDS SUMMARY | 2025-07-23 10:06 | XMS_ITS | Encounter Summary ---
Author Organization [facility] tem Address [id number] [address] [place] [address] Care Team Providers Care Service Greeter Name Role Phone Mireya Baker SURPLUS PROPERTY DISPOSAL AGENT-SENIOR OPERATIONS ANALYST Primary Care Provider + Encounter Details Date Type Department Care Team (Late st Contact Info) Description 04/20/2024 Orders Only [facility] Internal Medicine - Family Medicine [address] [place] [phone] External, Scanning Provider Social History Tobacco Use [...] 11:47 AM EDT) us Scanning Provider External [place] CARDIOVASCULAR SYS TEM SERVICES Final Result MANUALLY [...] documented as of this encounter Care Teams Service Greeter Relationship Specialty Start Date End Date Mireya Baker, SURPLUS PROPERTY DISPOSAL AGENT-SENIOR OPERATIONS ANALYST [address] [place] [address] PCP - General Family Medicine 06/28/25 documented as of this encounter
--- OUTSIDE RECORDS SUMMARY | 2025-07-23 10:06 | XMS_ITS | Encounter Summary ---
Author Organization [facility] Address [address] [place] [address] Care Team Providers Care Dat Instructor Name Role Phone Unavailable Primary Care Provider Unavailabl e Encounter Details Date Type Department Care Team (Late Contact Info) Description 05/14/2024 Abstract ADRIAN MORGAN [address] [facility] [place] [phone] Harry Abbasi DO [address] [facility] [address] [place], [place] [address] Social History Tobacco Use Types Packs/Day Years [...] AM EST Office Visit ADRIAN MORGAN [address] [place] [address] Alyssa Bazan PA [address] [facility] [place] [address] documented as of this encounter Visit Diagnoses Not on filedocumented in this encounter
--- OUTSIDE RECORDS SUMMARY | 2025-07-23 10:06 | XMS_ITS | Encounter Summary ---
Author Organization [facility] Address [address] [place] [address] Care Team Providers Care Administrative Assistant Coordinator Name Role Phone Unavailable Primary Care Provider Unavailabl e Encounter Details Date Type Department Care Team (Late Contact Info) Description 05/29/2024 Abstract ADRIAN MORGAN [address] [facility] [phone] Harry Abbasi DO [address] [facility] [address] [place], [place] [address] Social History Tobacco Use Types Packs/Day Years [...] AM EST Office Visit ADRIAN MORGAN [address] [address] Alyssa Bazan PA [address] [facility] [place] [address] documented as of this encounter Visit Diagnoses Not on filedocumented in this encounter
--- OUTSIDE RECORDS SUMMARY | 2025-07-23 10:06 | XMS_ITS | Encounter Summary ---
Author Organization [facility] Address [address] [place] [address] Care Team Providers Care Aoc Aadc Operations Staff Officer Name Role Phone Unavailable Primary Care Provider Unavailabl e Encounter Details Date Type Department Care Team (Late st Contact Info) Description 07/02/2024 Clinisync Result Encounter [facility] External Department Unsolicited Carmen Abbasi DO [address] [facility] [address] [place], [place] [address] Social History Tobacco Use Types Packs/Day Years [...] AM EST Office Visit NOMCecil MORGAN [address] [facility] [place] [phone] Alyssa Bazan PA [address] [facility] [address] [place], [facility] documented as of this encounter Procedures Procedure Name Priority Date/Time Associated Diagnosis Comments US OB ANATOMY 07/02/2024 9:32 AM EDT documented in this encounter Results * US OB ANATOMY (07/02/2024 9:32 AM EDT) Anatomical Region Laterality Modality Other 07/02/2024 9:32 AM EDT Narrative 07/02/2024 9:35 [place] [address] Ultrasound Report Signed Patient: ASH MARTINEZ MR#: [id number] : 2000 Acct:[id number] Age/Sex: 23 / F ADM Date: 07/02/24 Loc: [facility] Attending Dr: Carmen Abbasi D.O. Ordering Physician: Carmen Abbasi D.O. Date of Service: 07/02/24 Procedure(s): US OB anatomy Accession Number(s): [id number] cc: Carmen Abbasi D.O.; ELISA MARES [place] [address] Patient Name: ASH MARTINEZ MRN: [id number] date: 2000 Sex: F Assigned Patient Location: [facility] Current Patient Location: [facility] Accession/Order Number: [id number] Exam Date: 07/02/2024 08:30 Report Date: 07/02/2024 [...] July 10, 2007. Electronically authenticated by: MARQUES RMAIREZ Date: 07/02/2024 09:32 Dictated By: Marques Ramirez M.D. Signed By: 07/02/24934 DD/ 1 TD/TT: Energy Engineer: Procedure Note Radiology, Radiologist, MD - 07/02/2024 [place] [address] Ultrasound Report Signed Patient: ASH MARTINEZ KMR#: [id number] : 2000Acct:[id number] Age/Sex: 23 FADM Date: 07/02/24 Loc: [facility] Attending Dr: Carmen Abbasi D.O. Ordering Physician: Carmen Abbasi D.O. Date of Service: 07/02/24 Procedure(s): US OB anatomy Accession Number(s): [id number] cc: Carmen Abbasi D.O.; ELISA MARES [place] [phone] Patient Name: ASH MARTINEZ MRN: [id number] date: 2000 Sex: F Assigned Patient Location: [facility] Current Patient Location: [facility] Accession/Order Number: [id number] Exam Date: 07/02/2024 08:30 Report Date: 07/02/2024 [...] M.D. Signed By:07/02/24 0935 DD/ 0932 TD/TT: Energy Engineer: us Carmen Abbasi DO [facility] Final Result documented in this encounter Visit Diagnoses Not on filedocumented in this encounter
--- OUTSIDE RECORDS SUMMARY | 2025-07-23 10:06 | XMS_ITS | Encounter Summary ---
Author Organization [facility] Address [address] [place] [address] Care Team Providers Care Panel Maker Name Role Phone Unavailable Primary Care Provider Unavailabl e Encounter Details Date Type Department Care Team (Late Contact Info) Description 05/17/2024 Abstract ADRIAN MORGAN [address] [facility] [place] [phone] Harry Abbasi DO [address] [facility] [address] [place], [place] [address] Social History Tobacco Use Types Packs/Day Years [...] AM EST Office Visit ADRIAN MORGAN [address] [facility] [place] [address] Alyssa Bazan PA [address] [facility] [address] documented as of this encounter Visit Diagnoses Not on filedocumented in this encounter
--- OUTSIDE RECORDS SUMMARY | 2025-07-23 10:06 | XMS_ITS | Encounter Summary ---
Author Organization [facility] Address [address] [place] [address] Care Team Providers Care Radiology Manager Name Role Phone Unavailable Primary Care Provider Unavailabl e Encounter Details Date Type Department Care Team (Late st Contact Info) Description 07/02/2024 Clinisync Result Encounter [facility] External Department Unsolicited Carmen Abbasi DO [address] [facility] [address] [place], [place] [address] Social History Tobacco Use Types Packs/Day Years [...] Office Visit NOMCecil MORGAN [address] [facility] [place] [phone] Alyssa Bazan PA [address] [facility] [address] [place], [facility]11 documented as of this encounter Procedures Procedure Name Priority Date/Time Associated Diagnosis Comments US OB TRANSVAGINAL 07/02/2024 9: 32 AM EDT documented in this encounter Results * US OB TRANSVAGINAL (07/02/2024 9:32 AM EDT) Anatomical Region Laterality Modality Other 07/02/2024 9:32 AM EDT Narrative 07/02/2024 9:35 [place] [address] Ultrasound Report Signed Patient: ASH MARTINEZ MR#: [id number] : 2000 Acct:[id number] Age/Sex: 23 / F ADM Date: 07/02/24 Loc: [facility] Attending Dr: Carmen Abbasi D.O. Ordering Physician: Carmen Abbasi D.O. Date of Service: 07/02/24 Procedure(s): US OB transvaginal Accession Number(s): [id number] cc: Carmen Abbasi D.O.; ELISA MARES [place] [id number] Patient Name: ASH MARTINEZ MRN: [id number] date: 2000 Sex: F Assigned Patient Location: [facility] Current Patient Location: [facility] Accession/Order Number: [id number] Exam Date: 07/02/2024 08:30 Report Date: 07/02/2024 [...] M.D. Signed By: 07/02/24934 DD/ 1 TD/TT: Biodiesel Technology Manager: Procedure Note Radiology, Radiologist, MD - 07/02/2024 [place] [address] Ultrasound Report Signed Patient: ASH MARTINEZ KMR#: [id number] : 2000Acct:[id number] Age/Sex: 23 / FADM Date: 07/02/24 Loc: [facility] Attending Dr: Carmen Abbasi D.O. Ordering Physician: Carmen Abbasi D.O. Date of Service: 07/02/24 Procedure(s): US OB transvaginal Accession Number(s): [id number] cc: Carmen Abbasi D.O.; ELISA MARES [place] [id number] Patient Name: ASH MARTINEZ MRN: [facility]:[id number] date: 2000 Sex: F Assigned Patient Location: [facility] Current Patient Location: [facility] Accession/Order Number: [id number] Exam Date: 07/02/2024 08:30 Report Date: 07/02/2024 [...] Marques Ramirez M.D. Signed By:07/02/2435 DD/ TD/TT: Biodiesel Technology Manager: us Carmen Abbasi DO [facility] Final Result documented in this encounter Visit Diagnoses Not on filedocumented in this encounter
--- OUTSIDE RECORDS SUMMARY | 2025-07-23 10:06 | XMS_ITS | Encounter Summary ---
Author Organization [facility] Address [address] [place] [address] Care Team Providers Care Foreclosure Home Inspector Name Role Phone Unavailable Primary Care Provider Unavailabl e Encounter Details Date Type Department Care Team (Late st Contact Info) Description 04/18/2024 Clinisync Result Encounter [facility] External Department Unsolicited Carmen Abbasi DO [address] [facility] [address] [place], [place] [address] Social History Tobacco Use Types Packs/Day Years [...] AM EST Office Visit NOMCecil MORGAN [address] [facility] [place] [phone] Alyssa Bazan PA [address] [facility] [address] [place], [facility]11 documented as of this encounter Procedures Procedure Name Priority Date/Time Associated Diagnosis Comments US OB TRANSVAGINAL 04/18/2024 10 :56 AM EDT documented in this encounter Results * US OB TRANSVAGINAL (04/18/2024 10:56 AM EDT) Anatomical Region Laterality Modality Other 04/18/2024 10:5 6 AM EDT Narrative 04/18/2024 10:59 [place] [address] Ultrasound Report Signed Patient: ASH MARTINEZ MR#: [id number] : 2000 Acct:[id number] Age/Sex: 23 / F ADM Date: 04/18/24 Loc: ADRIAN Attending Dr: Carmen Abbasi D.O. Ordering Physician: Carmen Abbasi D.O. Date of Service: 04/18/24 Procedure(s): US OB transvaginal Accession Number(s): [id number] cc: Carmen Abbasi D.O.; ELISA MARES [place] [id number] Patient Name: ASH MARTINEZ MRN: [id number] date: 2000 Sex: F Assigned Patient Location: [facility] Current Patient Location: [facility] Accession/Order Number: [id number] Exam Date: 04/18/2024 10:00 Report Date: 04/18/2024 [...] Signed By: 04/18/24 1059 DD/ 1056 TD/TT: Otolaryngology Surgeon: Procedure Note Radiology, Radiologist, MD - 04/18/2024 [place] [address] Ultrasound Report Signed Patient: ASH MARTINEZ KMR#: [id number] : 2000Acct:[id number] Age/Sex: 23 / FADM Date: 04/18/24 Loc: [facility] Attending Dr: Carmen Abbasi D.O. Ordering Physician: Carmen Abbasi D.O. Date of Service: 04/18/24 Procedure(s): US OB transvaginal Accession Number(s): [id number] cc: Carmen Abbasi D.O.; ELISA MARES [place] [address] Patient Name: ASH MARTINEZ MRN: [id number] date: 2000 Sex: F Assigned Patient Location: [facility] Current Patient Location: [facility] Accession/Order Number: [id number] Exam Date: 04/18/2024 10:00 Report Date: 04/18/2024 [...] M.D. Signed By:04/18/24 1059 DD/ 1056 TD/TT: Otolaryngology Surgeon: us Carmen Ayleen DO [facility] Final Result documented in this encounter Visit Diagnoses Not on filedocumented in this encounter
--- OUTSIDE RECORDS SUMMARY | 2025-07-23 10:06 | XMS_ITS | Encounter Summary ---
Author Organization [facility] tem Address [id number] [address] [place] [address] Care Team Providers Care Doughnut Batter Mixer Name Role Phone Mireya Baker Valentín ROSENTHAL-COMMODITY SUPERVISOR Primary Care Provider + Encounter Details Date Type Department Care Team (Late st Contact Info) Description 12/30/2023 Telephone [facility] Internal Medicine - Family Medicine [address] [place] [phone] Lisa [place], [place] Social History Tobacco Use [...] documented as of this encounter Care Teams Doughnut Batter Mixer Relationship Specialty Start Date End Date Mireya Baker APRN-COMMODITY SUPERVISOR [address] [place] [address] PCP - General Family Medicine 06/28/25 documented as of this encounter
--- OUTSIDE RECORDS SUMMARY | 2025-07-23 10:06 | XMS_ITS | Encounter Summary ---
Author Organization [facility] tem Address [id number] [address] [place] [address] Care Team Providers Care Epic Cupid Analyst Name Role Phone Mireya Baker SMASH HAND-VEHICLE MODIFICATION TECHNICIAN Primary Care Provider + Encounter Details Date Type Department Care Team (Late st Contact Info) Description 05/23/2024 Orders Only [facility] Internal Medicine - Family Medicine [address] [place] [phone] External, Scanning Provider Social History Tobacco Use [...] documented as of this encounter Care Teams Epic Cupid Analyst Relationship Specialty Start Date End Date Mireya Baker, SMASH HAND-VEHICLE MODIFICATION TECHNICIAN [address] [place] [address] PCP - General Family Medicine 06/28/25 documented as of this encounter
--- OUTSIDE RECORDS SUMMARY | 2025-07-23 10:06 | XMS_ITS | Encounter Summary ---
Author Organization [facility] Address [address] [place] [address] Care Team Providers Care Accounts Payable Representative Name Role Phone Unavailable Primary Care Provider Unavailabl e Encounter Details Date Type Department Care Team (Late st Contact Info) Description 07/30/2024 Clinisync Result Encounter [facility] External Department Unsolicited Harry Abbasi DO [address] [facility] [address] [place], [place] [address] Social History Tobacco Use Types Packs/Day Years [...] AM EST Office Visit NOM[facility]ecil MORGAN [address] [facility] [place] [phone] Alyssa Bazan PA [address] [facility] [address] [place], [facility]11 documented as of this encounter Procedures [...] DO LAB BLOOD ORDERABLES Final Resul t [facility] * (ABNORMAL) ALL CBC WITH AUTO DIFF [...] us Harry Abbasi DO [facility] Final Result [facility] * US OB INCOMPLETE ANATOMY (07/30/2024 9:49 AM EDT) Anatomical Region Laterality Modality Other 07/30/2024 9:49 AM EDT Narrative 07/30/2024 9:52 [place] [address] Ultrasound Report Signed Patient: ASH MARTINEZ MR#: [id number] : 2000 Acct:[id number] Age/Sex: 23 / F ADM Date: 07/30/24 Loc: [facility] Attending Dr: Harry Abbasi D.O. Ordering Physician: Harry Abbasi D.O. Date of Service: 07/30/24 Procedure(s): US OB incomplete anatomy Accession Number(s): [id number] cc: Harry Abbasi D.O.; ELISA MARES [address] [address] Patient Name: ASH MARTINEZ MRN: [id number] date: 2000 Sex: F Assigned Patient Location: [facility] Current Patient Location: [facility] Accession/Order Number: [id number] Exam Date: 07/30/2024 08:35 Report Date: 07/30/2024 [...] Ramirez M.D. Signed By: 07/30/2452 DD/ TD/TT: Vocal Music Teacher: Procedure Note Radiology, Radiologist, MD - 07/30/2024 [place] [address] Ultrasound Report Signed Patient: ASH MARTINEZ KMR#: [id number] : 2000Acct:[id number] Age/Sex: 23 M Date: 07/30/24 Loc: [facility] Attending Dr: Harry Abbasi D.O. Ordering Physician: Harry Abbasi D.O. Date of Service: 07/30/24 Procedure(s): US OB incomplete anatomy Accession Number(s): [id number] cc: Harry Abbasi D.O.; ELISA MARES [place] [id number] Patient Name: ASH MARTINEZ MRN: [id number] date: 2000 Sex: F Assigned Patient Location: [facility] Current Patient Location: [facility] Accession/Order Number: [id number] Exam Date: 07/30/2024 08:35 Report Date: 07/30/2024 [...] Ramirez M.D. Signed By:07/30/24951 DD/ 8 TD/TT: Vocal Music Teacher: us Harry Abbasi DO [facility] Final Result documented in this encounter Visit Diagnoses Not on filedocumented in this encounter
--- OUTSIDE RECORDS SUMMARY | 2025-07-23 10:06 | XMS_ITS | Encounter Summary ---
Author Organization [facility] Address [address] [place] [address] Care Team Providers Care Health Systems Analyst Name Role Phone Unavailable Primary Care Provider Unavailabl e Encounter Details Date Type Department Care Team (Late Contact Info) Description 05/18/2024 Abstract ADRIAN MORGAN [address] [place] [phone] Harry Abbasi DO [address] [facility] [address] [place], [place] [address] Social History Tobacco Use Types Packs/Day Years [...] AM EST Office Visit ADRIAN MORGAN [address] [place] [address] Alyssa Bazan PA [address] [facility] [place] [address] documented as of this encounter Visit Diagnoses Not on filedocumented in this encounter
--- OUTSIDE RECORDS SUMMARY | 2025-07-23 10:06 | XMS_ITS | Encounter Summary ---
Author Organization [facility] Address [address] [place] [address] Care Team Providers Care University Partnership Rep Name Role Phone Unavailable Primary Care Provider Unavailabl e Encounter Details Date Type Department Care Team (Late Contact Info) Description 05/30/2024 Abstract ADRIAN MORGAN [address] [place] [phone] Harry Abbasi DO [address] [facility] [address] [place], [place] [address] Social History Tobacco Use Types Packs/Day Years [...] AM EST Office Visit ADRIAN MORGAN [address] [place] [address] Alyssa Bazan PA [address] [facility] [place] [address] documented as of this encounter Visit Diagnoses Not on filedocumented in this encounter
--- OUTSIDE RECORDS SUMMARY | 2025-07-23 10:06 | XMS_ITS | Encounter Summary ---
Author Organization [facility] Address [address] [place] [address] Care Team Providers Care Banking Manager Name Role Phone Unavailable Primary Care Provider Unavailabl e Encounter Details Date Type Department Care Team (Late Contact Info) Description 10/31/2024 Abstract ADRIAN MORGAN [address] [facility] [place] [phone] Harry Abbasi DO [address] [facility] [address] [place], [place] [address] Social History Tobacco Use Types Packs/Day Years [...] [address] [facility] [place] [address] Alyssa Bazan PA [address] [facility] [place] [address] documented as of this encounter Visit Diagnoses Not on filedocumented in this encounter
--- OUTSIDE RECORDS SUMMARY | 2025-07-23 10:06 | XMS_ITS | Encounter Summary ---
Author Organization [facility] tem Address [id number] [address] [place] [address] Care Team Providers Care Assembly Adjuster Name Role Phone Mireya Baker CLEAT BLANKER-COPPER ROLLER HANDLER PRINTING Primary Care Provider + Encounter Details Date Type Department Care Team (Late st Contact Info) Description 07/02/2024 Orders Only [facility] Internal Medicine - Family Medicine [address] [place] [phone] External, Scanning Provider Social History Tobacco Use [...] 11:15 AM EDT) us Scanning Provider External [place] CARDIOVASCULAR S[facility] TEM SERVICES Final Result MANUALLY TRANSCRIBED RESULTS * Ultrasound greater than 14 weeks single transabdominal (07/02/2024 11:15 AM EDT) Anatomical Region Laterality Modality OB-FARMWORKER CRANBERRY Ultrasound us Scanning Provider External IMG US [...] documented as of this encounter Care Teams Assembly Adjuster Relationship Specialty Start Date End Date Mireya Baker APRN-KONRAD [address] [place] [address] PCP - General Family Medicine 06/28/25 documented as of this encounter
--- OUTSIDE RECORDS SUMMARY | 2025-07-23 10:06 | XMS_ITS | Clinical Summary ---
Author Organization [facility] Healthcare Address [address] [place] [address] Care Team Providers Care Inventory Audit Clerk Name Role Phone Unavailable Primary Care [...] this medication. 14 tablet 5 07/04/20 25 Hospital, Clinic, or Other Facility Administered Medication Ordered Dose Route Frequency Start Date End Date Status etonogestrel-eluting 68 mg contraceptive implant 1 eachIndications:Insertion of Nexplanon 1 each [place] Continuous 12/17/2024 12/17/2027 Active Active Problems Problem Noted Date Diagnosed Date 6 weeks follow-up ([facility] 5 Postoperative follow-up 12/12/2024 Anxiety with depression 09/25/2024 Resolved Problems Problem Noted Date Diagnosed Date Resolved Date 36 weeks gestation of ([facility] 10/22/2024 11/09/2024 32 weeks gestation of ([facility]) 09/25/2024 11/09/2024 Third trimester ([facility]) 09/25/2024 11/09/2024 Encounters Date Type Department Care Team Description 07/11/2025 [place] [address] Kate Oconnell MA 06/27/2025 10:40 AM ED[place] [address] Harry Abbasi DO Pre-op examination; Request for sterilization; Well woman exam with routine gynecological exam; Exposure to STD; Vaginal discharge; Upper back pain 06/27/2025 Clinisync Result Encounter NOMS External Department Unsolicited Harry Abbasi DO 06/27/2025 External Result Encounter NOMS External Department Unsolicited Harry Abbasi DO 05/27/2025 10:10 AM EDT [place] [address] Harry Abbasi DO Sterilization consult 05/27/2025 Bamboo flowsheet [facility] [address] [place] [address] Harry Abbasi DO from Last 3 Months [...] EST Office Visit [facility] [address] [place] [phone] Alyssa Bazan PA [address] [facility] [place] [address] Health Maintenance Due Date Last Done Comments Influenza Vaccine (#1) 2025 Procedures Procedure Name Priority Date/Time Associated Diagnosis Comments RECURRENT VAGINITIS (HTRX) Routine 06/27/2025 11:46 AM EDT IGP,APTIMA HPV,AGE GDLN Routine 06/27/2025 10:39 AM EDT PAP SMEAR Routine 06/27/2025 12:00 AM EDT from Last 3 Months Results * RECURRENT VAGINITIS (HTRX) (06/27/2025 11:46 AM EDT) ATOPOBIUM VAGINAE 0 19.961 - 24.689 ppm 06/28/2025 5:53 AM EDT [facility] ATOPOBIUM VAGINAE Not Detected 19.961 - 24.689 ppm 06/28/2025 5:53 AM EDT [facility] BVAB 2,3 (BACTERIAL VAGINOSIS ASSOCIATED BACTERIA 2, 3); MOBILUNCUS SPP 0 19.961 - 24.689 ppm 06/28/2025 5:53 AM EDT [facility] BVAB 2,3 (BACTERIAL VAGINOSIS ASSOCIATED BACTERIA 2, 3); MOBILUNCUS SPP Not Detected 19.961 - 24.689 ppm 06/28/2025 5:53 AM EDT [facility] EARL ALBICANS, PARAPSILOSIS, TROPICALIS 0 23.000 - 30.347 ppm 06/28/2025 5:53 AM EDT [facility] EARL ALBICANS, PARAPSILOSIS, TROPICALIS Not Detected 23.000 - 30.347 ppm 06/28/2025 5:53 AM EDT [facility] EARL GLABRATA 0 23.000 - 31.618 ppm 06/28/2025 5:53 AM EDT [facility] EARL GLABRATA Not Detected 23.000 - 31.618 ppm 06/28/2025 5:53 AM EDT [facility] EARL KRUSEI 0 23.000 - 30.873 ppm 06/28/2025 5:53 AM EDT [facility] EARL KRUSEI Not Detected 23.000 - 30.873 ppm 06/28/2025 5:53 AM EDT [facility] CHLAMYDIA TRACHOMATIS 0 23.000 - 31.586 ppm 06/28/2025 5:53 AM EDT [facility] CHLAMYDIA TRACHOMATIS Not Detected 23.000 - 31.586 ppm 06/28/2025 5:53 AM EDT [facility] GARDNERELLA VAGINALIS 0 19.961 - 24.689 ppm 06/28/2025 5:53 AM EDT [facility] GARDNERELLA VAGINALIS Not Detected 19.961 - 24.689 ppm 06/28/2025 5:53 AM EDT [facility] MEGASPHAERA (TYPES 1, 2) 0 19.961 - 24.689 ppm 06/28/2025 5:53 AM EDT [facility] MEGASPHAERA (TYPES 1, 2) Not Detected 19.961 - 24.689 ppm 06/28/2025 5:53 AM EDT [facility] NEISSERIA GONORRHOEAE 0 23.000 - 32.587 ppm 06/28/2025 5:53 AM EDT [facility] NEISSERIA GONORRHOEAE Not Detected 23.000 - 32.587 ppm 06/28/2025 5:53 AM EDT [facility] TRICHOMONAS VAGINALIS 0 23.000 - 31.995 ppm 06/28/2025 5:53 AM EDT [facility] TRICHOMONAS VAGINALIS Not Detected 23.000 - 31.995 ppm 06/28/2025 5:53 AM EDT [facility] MYCOPLASMA GENITALIUM 0 19.961 - 24.689 ppm 06/28/2025 5:53 AM EDT [facility] MYCOPLASMA GENITALIUM Not Detected 19.961 - 24.689 ppm 06/28/2025 5:53 AM EDT [facility] 06/27/2025 11:4 6 AM EDT 06/28/2025 1:30 AM EDT us Harry Abbasi DO LAB BLOOD ORDERABLES Final Resul t [facility] [address] [address] * IGP,APTIMA HPV,AGE GDLN (06/27/2025 10:39 AM EDT) AGE GDLN ACOG TESTING Note . [facility] Comment: TESTS RESULT FLAG UNITS REF RANGE LAB Clinician Provided Cytology Information Source.............Cervix;Endocervix No. of containers..01 ThinPrep Vial Age Algo ACOG Keke... -07 11 FLAG LEGEND: L-Low Normal,H-High Normal,LL-Alert Low,HH-Alert High <-Panic Low,>-Panic High,A-Abnormal,AA-Critical Abnormal Performed at: 01 =[facility] [address] [place] [address] Darlene Gonzalez MD, IGP, RFX APTIMA HPV ASCU Note . [facility] Comment: TESTS RESULT FLAG UNITS REF RANGE LAB DIAGNOSIS: 02 NEGATIVE FOR INTRAEPITHELIAL LESION OR MALIGNANCY. Specimen adequacy: 02 Satisfactory for evaluation. Endocervical and/or squamous metaplastic cells (endocervical component) are present. Performed by: Braxton Palencia, Exotic Dancer ([facility]) . 02 Note: Note 02 The Pap smear is a screening test designed to aid in the detection of premalignant and malignant conditions of the uterine cervix. It is not a diagnostic procedure and should not be used as the sole means of detecting cervical cancer. Both false-positive and false-negative reports do occur. Test Methodology: Note 02 This liquid based ThinPrep(R) pap test was screened with the use of an image guided system. . 02 The HPV DNA reflex criteria were not met with this specimen result therefore, no HPV testing was performed. FLAG LEGEND: L-Low Normal,H-High Normal,LL-Alert Low,HH-Alert High <-Panic Low,>-Panic High,A-Abnormal,AA-Critical Abnormal Performed at: [address] [address] Darlene Gonzalez MD, Performed at: = - [facility] [address] [id number] Education Technician: Darlene Gonzalez MD, Phone: [phone] Performed at: [facility] [id number] Education Technician: Darlene Gonzalez MD, Phone: [phone] 06/27/2025 10:3 9 AM EDT 06/27/2025 8:52 PM EDT Narrative [facility] - 07/04/2025 1:08 PM EDT BRUSH-SPATULA CERVIX ENDOCERVIX Harry Ayleen DO LAB BLOOD ORDERABLES Final Resul t Performing Organization Address [facility] Co de Phone Number [facility] * Pap Smear (06/27/2025 12:00 AM EDT) Swab Cervical swab / Unknown Harry Ayleen DO LAB CYTOLOGY ORDERABLES Final Re sult Performing Organization Address [facility] Co de Phone Number EXTERNAL LAB from Last 3 Months Insurance [employer]
--- OUTSIDE RECORDS SUMMARY | 2025-07-23 10:06 | XMS_ITS | Encounter Summary ---
Author Organization [facility] tem Address [id number] [address] [place] [address] Care Team Providers Care Interior Painter Name Role Phone Mireya Baker Valentín ROSENTHAL-PACKAGING TECHNICIAN Primary Care Provider + Encounter Details Date Type Department Care Team (Late st Contact Info) Description 02/17/2024 Orders Only [facility] Internal [facility] - Family Medicine [address] [place] [phone] Summer Davalos, WAFER FABRICATION TECHNICIAN-FUSE CUTTER [address] [place] [address] Social History Tobacco Use Types Packs/Day Years [...] 11:23 AM EDT) us Scanning Provider External [place] [facility] Final Result MANUALLY [...] documented as of this encounter Care Teams Interior Painter Relationship Specialty Start Date End Date Mireya Baker, WAFER FABRICATION TECHNICIAN-PACKAGING TECHNICIAN [address] [place] [address] PCP - General Family Medicine 06/28/25 documented as of this encounter
--- OUTSIDE RECORDS SUMMARY | 2025-07-23 10:06 | XMS_ITS | Encounter Summary ---
Author Organization [facility] Address [address] [place] [address] Care Team Providers Care Clock And Watch Hands Dipper Name Role Phone Unavailable Primary Care Provider Unavailabl e Encounter Details Date Type Department Care Team (Late Contact Info) Description 08/01/2023 Abstract ADRIAN MORGAN [address] [facility] [place] [phone] Harry Abbasi DO [address] [place], [place] [address] Social History Tobacco Use Types Packs/Day Years [...] AM EST Office Visit ADRIAN MORGAN [address] [place] [address] Alyssa Bazan PA [address] [place] [address] documented as of this encounter Visit Diagnoses Not on filedocumented in this encounter
--- OUTSIDE RECORDS SUMMARY | 2025-07-23 10:06 | XMS_ITS | Encounter Summary ---
Author Organization [facility] Address [address] [place] [address] Care Team Providers Care Lube Attendant Name Role Phone Unavailable Primary Care Provider Unavailabl e Encounter Details Date Type Department Care Team (Late Contact Info) Description 04/18/2024 Abstract ADRIAN MORGAN [address] [facility] [place] [phone] Harry Abbasi DO [address] [facility] [address] [place], [place] [address] Social History Tobacco Use Types Packs/Day Years [...] AM EST Office Visit ADRIAN MORGAN [address] [place] [address] Alyssa Bazan PA [address] [facility] [place] [address] documented as of this encounter Visit Diagnoses Not on filedocumented in this encounter
--- OUTSIDE RECORDS SUMMARY | 2025-07-23 10:06 | XMS_ITS | Clinical Summary ---
Author Organization [facility] tem Address [facility] [address] [place] [address] Care Team Providers Care Optometry Professor Name Role Phone Mireya Baker FILM PROCESSOR-TOOLING ENGINEER Primary Care Provider + Allergies Active Allergy Reactions Criticality Noted Date Comments Ondansetron Hcl Rash Low 12/11/2022 Medications 21-IRON FU-FOLIC ACID ORAL Take by mouth once daily. Active fluticasone propionate (FLONASE) 50 mcg/actuation nasal spray Administer 2 sprays into each nostril in the morning. 16 g Active FLUoxetine (PROzac) 10 mg capsule Take 1 capsule (10 mg total) by mouth in the morning. Active Active Problems No known active problems Encounters Date Type Department Care Team Description 07/04/2025 Telephone [facility] Internal Medicine - Family Medicine [address] [place] [phone] Brittney Rome CMA Appointment 06/28/2025 8:01 AM EDT - 06/28/2025 8:58 AM EDT Emergency [facility] - Emergency [address] [place] [address] Sridhar Schuler DO Sprain of left wrist, initial encounter (Primary Dx) Discharge Disposition: Home 06/28/2025 Travel from Last 3 Months Immunizations Immunization [...] got money to buy more. Never True 06/28/2025 Within the past 12 months th e food we bought just didn't last and we didn't have money to get more. Never True 06/28/2025 Purpose - Life Answer Date Recorded Purpose and direction in life Unknown Comments No Sex and Gender Information Value Date Recorded Sex Assigned at Not on file Legal Sex Female 12:02 PM EDT Gender Identity Not on file Sexual Orientation Not on file Last Filed Vital Signs Vital Sign Reading Time Taken Comments Blood Pressure 122/76 06/28/2025 8:05 AM EDT Pulse 75 06/28/2025 8:05 AM EDT Temperature 36.4 C (97.5 F) 06/28/2025 8:05 AM EDT Respiratory Rate 20 06/28/2025 8:05 AM EDT Oxygen Saturation 97% 06/28/2025 8:05 AM EDT Inhaled Oxygen Concentration - - Weight 122.5 kg (270 lb) 06/28/2025 8:05 AM EDT Height 170.2 cm (5' 7 ) 06/28/2025 8:05 AM EDT Body Mass Index 42.29 06/28/2025 8:05 AM EDT Plan of Treatment Health Maintenance Due Date Last Done Comments Adult BMI Follow Up Plan 09/14/2024 09/14/2023 Depression Screening 07/04/2025 07/04/2024 Adult BMI Screening 06/28/2026 06/28/2025 Tobacco Screening 06/28/2026 06/28/2025 Pap Smear 05/29/2027 05/29/2024, 11/16/2022 DTaP,Tdap and Td Vaccines (8 - Td or Tdap) 04/04/2035 04/04/2025, 11/13/2019, 01/22/2014, Additional history exists COVID-19 Vaccine Discontinued 01/14/2022, 02/27/2021 Chlamydia Screening Discontinued Influenza Vaccine Discontinued Medical Devices Not on file Procedures Procedure Name Priority Date/Time Associated Diagnosis Comments XR WRIST LT MIN 3 VWS STAT 06/28/2025 8:35 AM EDT from Last 3 Months Results * X-ray wrist left minimum 3 views (06/28/2025 8:35 AM EDT) Anatomical Region Laterality Modality MSK, Upper Extremities, Wrist Left Co mputed Radiography 06/28/2025 8:38 AM EDT Narrative 06/28/2025 8:39 AM EDT XR WRIST LT MIN 3 VWS Clinical history:left wrist pain pain Comparison: 02/09/2021 Impression: No acute process, fracture or dislocation. Alignment and mineralization appear to be within normal limits. If there is snuffbox tenderness or concern for scaphoid injury, follow up evaluation in 7 to10 days may be of additional diagnostic benefit. Finalized by Jose Aj MD on 06/28/2025 8:39 AM Procedure Note Jose Aj MD - 06/28/2025 XR WRIST LT MIN 3 VWS Clinical history:left wrist pain pain Comparison: 02/09/2021 Impression: No acute process, fracture or dislocation. Alignment and mineralizationappear to be within normal limits. If there is snuffbox tenderness or concern for scaphoid injury, follow upevaluation in 7 to10 days may be of additional diagnostic benefit. Finalized by Jose Aj MD on 06/28/2025 8:39 AM us Sridhar Schuler DO IMG DIAGNOSTIC IMAGING O RDERABLES Final Result from Last 3 Months Insurance [employer] [place] [employer] Care Teams Optometry Professor Relationship Specialty Start Date End Date Mireya Baker, FILM PROCESSOR-TOOLING ENGINEER [address] [place] [address] PCP - General Family Medicine 06/28/25
--- OUTSIDE RECORDS SUMMARY | 2025-07-23 10:06 | XMS_ITS | Encounter Summary ---
Author Organization [facility] [address] [facility] tem Address [id number] [address] [place] [address] Care Team Providers Care Vp Of Product Name Role Phone Mireya Baker SENIOR PROJECT CONTROLS SPECIALIST-SIDE SEAM TENDER Primary Care Provider + Encounter Details Date Type Department Care Team (Late st Contact Info) Description 09/19/2024 Orders Only [facility] Internal Medicine - Family Medicine [address] [place] [phone] Ref Prov, [place] [address] Social History Tobacco Use Types Packs/Day Years [...] documented as of this encounter Care Teams Vp Of Product Relationship Specialty Start Date End Date Mireya Baker APRN-SIDE SEAM TENDER [address] [place] [address] PCP - General Family Medicine 06/28/25 documented as of this encounter
--- OUTSIDE RECORDS SUMMARY | 2025-07-23 10:06 | XMS_ITS | Encounter Summary ---
Author Organization [facility] Address [address] [place] [address] Care Team Providers Care Entry Manager Name Role Phone Unavailable Primary Care Provider Unavailabl e Encounter Details Date Type Department Care Team (Late st Contact Info) Description 07/11/2025 Orders Only ADRIAN MORGAN [address] [place] [address] [place] [address] Anish Kate, [place] Social History Tobacco Use Types Packs/Day Years [...] 8:30 AM EST Office Visit ADRIAN MORGAN [address] [place], [place] [address] [address] Alyssa Bazan PA [address] [place], [place] [address] [place] [address] documented as of this encounter Procedures Procedure Name Priority Date/Time Associated Diagnosis Comments PAP SMEAR Routine 06/27/2025 12:00 AM EDT documented in this encounter Results * Pap Smear (06/27/2025 12:00 AM EDT) Swab Cervical swab / Unknown us Harry Ayleen DO LAB CYTOLOGY ORDERABLES Final Re sult EXTERNAL LAB documented in this encounter Visit Diagnoses Not on filedocumented in this encounter
--- OUTSIDE RECORDS SUMMARY | 2025-07-23 10:06 | XMS_ITS | Encounter Summary ---
Author Organization [facility] Address [address] [place] [address] Care Team Providers Care Valance Cutter Name Role Phone Unavailable Primary Care Provider Unavailabl e Encounter Details Date Type Department Care Team (Late st Contact Info) Description 02/20/2024 Clinisync Result Encounter NOMS External Department Unsolicited Carmen Abbasi DO [address] [place], [place] [address] Social History Tobacco Use Types Packs/Day Years [...] [facility] [place] [phone] Alyssa Bazan PA [address] [place], [facility] documented as of this encounter Procedures Procedure Name Priority Date/Time Associated Diagnosis Comments US OB TRANSVAGINAL 02/20/2024 10 :05 AM EDT [facility] PREG QUANT HCG Routine 02/20/2024 9: 36 AM EDT documented in this encounter Results * US OB TRANSVAGINAL (02/20/2024 10:05 AM EDT) Anatomical Region Laterality Modality Other 02/20/2024 10:0 5 AM EDT Narrative 02/20/2024 10:07 [place] [address] Ultrasound Report Signed Patient: ASH MARTINEZ MR#: [id number] : 2000 Acct:[id number] Age/Sex: 23 / F ADM Date: 02/20/24 Loc: LAB Attending Dr: Carmen Abbasi D.O. Ordering Physician: Carmen Abbasi D.O. Date of Service: 02/20/24 Procedure(s): US OB transvaginal Accession Number(s): [id number] cc: Carmen Abbasi D.O.; ELISA MARES [place] [address] Patient Name: ASH MARTINEZ MRN: [facility]:[id number] date: 2000 Sex: F Assigned Patient Location: LAB Current Patient Location: LAB Accession/Order Number: [id number] Exam Date: 02/20/2024 09:15 Report Date: 02/20/2024 [...] Signed By: 02/20/24 1007 DD/ 1005 TD/TT: Gatehouse Attendant: Procedure Note Radiology, Radiologist, MD - 02/20/2024 [place] [address] Ultrasound Report Signed Patient: ASH MARTINEZ KMR#: [id number] : 2000Acct:[id number] Age/Sex: 23 / FADM Date: 02/20/24 Loc: LAB Attending Dr: Carmen Abbasi D.O. Ordering Physician: Carmen Abbasi D.O. Date of Service: 02/20/24 Procedure(s): US OB transvaginal Accession Number(s): [id number] cc: Carmen Abbasi D.O.; ELISA MARES [place] [address] Patient Name: ASH MARTINEZ MRN: [id number] date: 2000 Sex: F Assigned Patient Location: LAB Current Patient Location: LAB Accession/Order Number: [id number] Exam Date: 02/20/2024 09:15 Report Date: 02/20/2024 [...] 10:05 Dictated By: Marques Ramirez M.D. Signed By:02/20/24 1007 DD/ 1005 TD/TT: Gatehouse Attendant: us Carmen Ayleen DO [facility] Final [...]
--- OUTSIDE RECORDS SUMMARY | 2025-07-23 10:06 | XMS_ITS | Encounter Summary ---
Author Organization [facility] tem Address [id number] [address] [place] [address] Care Team Providers Care Mechanical Design Drafter Name Role Phone Mireya Baker Valentín ROSENTHAL-DISPENSING AUDIOLOGIST Primary Care Provider + Encounter Details Date Type Department Care Team (Late st Contact Info) Description 09/16/2023 Orders Only [facility] Internal Medicine - Family Medicine [address] [place] [phone] Summer Davalos, HAT BODY SORTER-KEYBOARDING CLERK [address] [place] [address] Social History Tobacco Use Types Packs/Day Years [...] documented as of this encounter Care Teams Mechanical Design Drafter Relationship Specialty Start Date End Date Mireya Baker, GALO-DISPENSING AUDIOLOGIST [address] [place] [address] PCP - General Family Medicine 06/28/25 documented as of this encounter
--- OUTSIDE RECORDS SUMMARY | 2025-07-23 10:06 | XMS_ITS | Encounter Summary ---
Author Organization [facility] Address [address] [place] [address] Care Team Providers Care Media Center Specialist Name Role Phone Unavailable Primary Care Provider Unavailabl e Encounter Details Date Type Department Care Team (Late st Contact Info) Description 09/29/2024 Clinisync Result Encounter [facility] External Department Unsolicited Carmen Abbasi DO [address] [facility] [address] [place], [place] [address] Social History Tobacco Use Types Packs/Day Years [...] AM EST Office Visit [facility] [address] [facility] [place] [phone] Alyssa Bazan PA [address] [place], [facility] documented as of this encounter Procedures Procedure Name Priority Date/Time Associated Diagnosis Comments US OB BPP W NON-STRESS 09/29/2024 4:08 PM EST documented in this encounter Results * US OB BPP W NON-STRESS (09/29/2024 4:08 PM EST) Anatomical Region Laterality Modality Other 09/29/2024 4:08 PM EST Narrative 09/29/2024 4:11 [place] [address] Ultrasound Report Signed Patient: ASH MARTINEZ MR#: [id number] : 2000 Acct:[id number] Age/Sex: 23 / F ADM Date: 09/29/24 Loc: [facility] Attending Dr: Carmen Abbasi D.O. Ordering Physician: Carmen Abbasi D.O. Date of Service: 09/29/24 Procedure(s): US OB BPP w non-stress Accession Number(s): [id number] cc: Carmen Abbasi D.O.; ELISA MARES [place] [id number] Patient Name: ASH MARTINEZ MRN: [id number] date: 2000 Sex: F Assigned Patient Location: [facility] Current Patient Location: Accession/Order Number: [id number] Exam Date: 09/29/2024 14:10 Report Date: 09/29/2024 [...] Signed By: 09/29/24 1611 DD/ 1608 TD/TT: Paint Coating Machine Operator: Procedure Note Radiology, Radiologist, - 09/29/2024 [place] [address] Ultrasound Report Signed Patient: ASH MARTINEZ KMR#: [id number] : 2000Acct:[id number] Age/Sex: Date: 09/29/24 Loc: [facility] Attending Dr: Carmen Abbasi D.O. Ordering Physician: Carmen Abbasi D.O. Date of Service: 09/29/24 Procedure(s): US OB BPP w non-stress Accession Number(s): [id number] cc: Carmen Abbasi D.O.; ELISA MARES [place] [address] Patient Name: ASH MARTINEZ MRN: [facility]:[id number] date: 2000 Sex: F Assigned Patient Location: [facility] Current Patient Location: Accession/Order Number: [id number] Exam Date: 09/29/2024 14:10 Report Date: 09/29/2024 [...] M.D. Signed By:09/29/24 1611 DD/ 1608 TD/TT: Paint Coating Machine Operator: us Carmen Abbasi DO [facility] Final Result documented in this encounter Visit Diagnoses Not on filedocumented in this encounter
--- OUTSIDE RECORDS SUMMARY | 2025-07-23 10:06 | XMS_ITS | Encounter Summary ---
Author Organization [facility] [facility] tem Address [id number] [address] [place] [address] Care Team Providers Care Mind Reader Name Role Phone Mireya Baker GENERAL ACTIVITIES THERAPIST-PUBLIC INFORMATION OFFICER Primary Care Provider + Encounter Details Date Type Department Care Team (Late st Contact Info) Description 02/21/2024 Orders Only [facility] Internal Medicine - Family Medicine [address] [place] [phone] External, Scanning Provider Social History Tobacco Use [...] documented as of this encounter Care Teams Mind Reader Relationship Specialty Start Date End Date Mireya Baker, GENERAL ACTIVITIES THERAPIST-PUBLIC INFORMATION OFFICER [address] [place] [address] PCP - General Family Medicine 06/28/25 documented as of this encounter
--- OUTSIDE RECORDS SUMMARY | 2025-07-23 10:06 | XMS_ITS | Encounter Summary ---
Author Organization [facility] Address [address] [place] [address] Care Team Providers Care Heating Element Builder Name Role Phone Unavailable Primary Care Provider Unavailabl e Encounter Details Date Type Department Care Team (Late st Contact Info) Description 09/11/2024 Clinisync Result Encounter [facility] External Department Unsolicited Alyssa Pretty PA [address] [place], [place] [address] Social History Tobacco Use Types Packs/Day Years [...] EST Office Visit NOMCecil Rocha OBGYVinicio [address] [place] [phone] Alyssa Pretty PA [address] [place] [address] [place] [address] documented as of this encounter Procedures Procedure Name Priority Date/Time Associated Diagnosis Comments US OB GROWTH 09/11/2024 12:32 PM EST documented in this encounter Results * US OB GROWTH (09/11/2024 12:32 PM EST) Anatomical Region Laterality Modality Other 09/11/2024 12:3 2 PM EST Narrative 09/11/2024 12:35 [place] [address] Ultrasound Report Signed Patient: ASH MARTINEZ MR#: [id number] : 2000 Acct:[id number] Age/Sex: 23 / F ADM Date: 09/11/24 Loc: [facility] Attending Dr: Alyssa Pretty Ordering Physician: Alyssa Pretty Date of Service: 09/11/24 Procedure(s): US OB growth Accession Number(s): [id number] cc: Alyssa Pretty; ELISA MARES [place] [address] Patient Name: ASH MARTINEZ MRN: [id number] date: 2000 Sex: F Assigned Patient Location: [facility] Current Patient Location: [facility] Accession/Order Number: [id number] Exam Date: 09/11/2024 09:57 Report Date: 09/11/2024 [...] Signed By: 09/11/24 1235 DD/ 1232 TD/TT: Field Service Supervisor: Procedure Note Radiology, Radiologist, MD - 09/11/2024 [place] [address] Ultrasound Report Signed Patient: ASH MARTINEZ R#: [id number] : 2000Acct:[id number] Age/Sex: 23 / FADM Date: 09/11/24 Loc: [facility] Attending Dr: Alyssa Pretty Ordering Physician: Alyssa Pretty Date of Service: 09/11/24 Procedure(s): US OB growth Accession Number(s): [id number] cc: Alyssa Pretty; ELISA MARES [place] [id number] Patient Name: ASH MARTINEZ MRN: [id number] date: 2000 Sex: F Assigned Patient Location: [facility] Current Patient Location: [facility] Accession/Order Number: [id number] Exam Date: 09/11/2024 09:57 Report Date: 09/11/2024 [...] M.D. Signed By:09/11/24 1235 DD/ 1232 TD/TT: Field Service Supervisor: Alyssa ISSA [facility] Final Result documented in this encounter Visit Diagnoses Not on filedocumented in this encounter
--- OUTSIDE RECORDS SUMMARY | 2025-07-23 10:06 | XMS_ITS | Encounter Summary ---
Author Organization [facility] Address [address] [place] [address] Care Team Providers Care Tick Sewer Name Role Phone Unavailable Primary Care Provider Unavailabl e Encounter Details Date Type Department Care Team (Late st Contact Info) Description 05/11/2024 Clinisync Result Encounter [facility] External Department Unsolicited Carmen Abbasi DO [address] [place], [place] [address] Social History Tobacco Use Types Packs/Day Years [...] AM EST Office Visit NOMCecil MORGAN [address] [place] [phone] Alyssa Bazan PA [address] [place], [place] [address] documented as of this encounter Procedures Procedure [...] AM EDT MLR HEMOGLOBIN A1C Routine 05/11/2024 9: 47 AM EDT ALL TYPE AND SCREEN Routine 05/11/2024 9 :47 AM EDT ALL RUBELLA IGG AB Routine 05/11/2024 9: 47 AM EDT ALL CBC WITH AUTO DIFF Routine 05/11/2024 9:47 AM EDT documented in this encounter Results * US OB TRANSVAGINAL (05/11/2024 9:50 AM EDT) Anatomical Region Laterality Modality Other 05/11/2024 9:50 AM EDT Narrative 05/11/2024 9:53 [place] [address] Ultrasound Report Signed Patient: ASH MARTINEZ MR#: [id number] : 2000 Acct:[id number] Age/Sex: 23 / F ADM Date: 05/11/24 Loc: [facility] Attending Dr: Carmen Abbasi D.O. Ordering Physician: Carmen Abbasi D.O. Date of Service: 05/11/24 Procedure(s): US OB transvaginal Accession Number(s): [id number] cc: Carmen Abbasi D.O.; ELISA MARES [place] [id number] Patient Name: ASH MARTINEZ MRN: [id number] date: 2000 Sex: F Assigned Patient Location: [facility] Current Patient Location: [facility] Accession/Order Number: [id number] Exam Date: 05/11/2024 08:31 Report Date: 05/11/2024 [...] M.D. Signed By: 05/11/24 0953 DD/ TD/TT: Trimmer Tailer: Procedure Note Radiology, Radiologist, MD - 05/11/2024 [place] [address] Ultrasound Report Signed Patient: ASH MARTINEZ KMR#: [id number] : 2000Acct:[id number] Age/Sex: 23 / FADM Date: 05/11/24 Loc: [facility] Attending Dr: Carmen Abbasi D.O. Ordering Physician: Carmen Abbasi D.O. Date of Service: 05/11/24 Procedure(s): US OB transvaginal Accession Number(s): [id number] cc: Carmen Abbasi D.O.; LEISA MARES [address] [address] Patient Name: ASH MARTINEZ MRN: [facility]:[id number] date: 2000 Sex: F Assigned Patient [facility] Current Patient Location: LAB Accession/Order Number: [id number] Exam Date: 05/11/2024 08:31 Report Date: 05/11/2024 [...] Jose Hernandes M.D. Signed By:05/11/2453 DD/ TD/TT: Trimmer Tailer: us Carmen Abbasi DO [facility] Final Result * TB BOX TEST SENT OUT (05/11/2024 9:47 AM EDT) BOX TEST SENT OUT 05/11/24 [facility] 05/11/2024 9:47 AM EDT 05/11/2024 9:53 AM EDT Narrative [facility] - 05/18/2024 3:48 PM EDT us Carmen Ayleen DO [facility] Final Result Performing Organization Address [facility] Co de Phone Number [facility] * HBSAG SCREEN (05/11/2024 9:47 AM EDT) [facility] HBSAG SCREEN Negative Negative [facility] Comment: Performed at: [address] [id number] Ortho Assistant: Ender Win PhD, Phone: [phone] 05/11/2024 9:47 AM EDT 05/11/2024 9:53 AM EDT Narrative [facility] - 05/12/2024 10:09 AM EDT Carmen Ayleen DO LAB BLOOD ORDERABLES Final Resul t Performing Organization Address [facility] Phone Number [facility] * RAPID PLASMA REAGIN, QUANT (05/11/2024 9:47 AM EDT) [facility] RAPID PLASMA REAGIN, QUANT Non Reactive NonRea<1: 1 titer [facility] Comment: Please Note: This test does not meet current guidelines for screening and diagnosis of syphilis. This test is intended for following treatment response in patients being treated for syphilis infection. To screen for syphilis infection, a reflex cascade that includes both RPR and a treponema-specific assay should be utilized, such as Treponema pallidum (Syphilis) Screening Dr[place]coll (573134) or Rapid Plasma Reagin (RPR) Test With Reflex to Quantitative RPR and Confirmatory Treponema pallidum Antibodies (905749). Performed at: [address] [id number] Ortho Assistant: Ender Win PhD, Phone: [phone] 05/11/2024 9:47 AM EDT 05/11/2024 9:53 AM EDT Narrative [facility] - 05/12/2024 10:09 AM EDT Carmen Ayleen DO LAB BLOOD ORDERABLES Final Resul t Performing Organization Address [facility] Co de Phone Number [facility] * HCV ANTIBODY RFX TO QUANT PCR (05/11/2024 9:47 AM EDT) HCV AB Non Reactive Non Reactive [facility] INTERPRETATION: Comment . [facility] Comment: Not infected with HCV unless early or acute infection is suspected (which may be delayed in an immunocompromised individual), or other evidence exists to indicate HCV infection. 05/11/2024 9:47 AM EDT 05/11/2024 9:53 AM EDT [facility] - 05/12/2024 7:10 AM EDT us Carmen Ayleen DO LAB BLOOD ORDERABLES Final Resul t Performing Organization Address [facility] Co de Phone Number [facility] * HIV AB/P24 AG WITH REFLEX (05/11/2024 9:47 AM EDT) Pathologist [facility] HIV AB/P24 AG SCREEN Non Reactive Non Reactive [facility] Comment: HIV-1/HIV-2 antibodies and HIV-1 p24 antigen were NOT detected. There is no laboratory evidence of HIV infection. HIV Negative Performed at: [facility] [id number] Ortho Assistant: Ender Win PhD, Phone: [phone] 05/11/2024 9:47 AM EDT 05/11/2024 9:53 AM EDT Narrative [facility] - 05/12/2024 7:10 AM EDT us [employer] DO LAB BLOOD ORDERABLES Final Resul t Performing Organization Address [facility] Co de Phone Number [facility] * ALL RUBELLA IGG AB (05/11/2024 9:47 AM EDT) Pathologist [facility] RUBELLA ANTIBODIES, IGG 6.75 Immune >0.99 index TB Comment: Non-immune <0.90 Equivocal 0.90 - 0.99 Immune >0.99 Performed at: [address] [id number] Ortho Assistant: Ender Win PhD, Phone: [phone] 05/11/2024 9:47 AM EDT 05/11/2024 9:53 AM EDT Narrative [facility] - 05/12/2024 7:10 AM EDT Carmen Ayleen DO [facility] Final Result Performing Organization Address [facility] Co de [facility] * MLR HEMOGLOBIN A1C (05/11/2024 9:47 AM EDT) [facility] GLYCOHEMOGLOBIN A1C 4.6 4.5 - 6.2 % [facility] Comment: ADA RECOMMENDED LIMIT 4.0 - 6.0 ADA THERAPEUTIC TARGET < 7.0 ACTION SUGGESTED > 7.0 ESTIMATED AVERAGE GLUCOSE 85 mg/dL TB 05/11/2024 9:47 AM EDT 05/11/2024 9:53 AM EDT Narrative [facility] - 05/11/2024 11:45 [address] EDT [facility] Final Result Performing Organization Address [facility] de Phone Number [facility] * ALL TYPE AND SCREEN (05/11/2024 9:47 AM EDT) [facility] BLOOD TYPE B Positive [facility] ANTIBODY SCREEN NEGATIVE TB 05/11/2024 9:47 AM EDT 05/11/2024 9:53 AM EDT Narrative [facility] - 05/11/2024 10:56 AM EDT [facility] , Carmen Ayleen DO [facility] Final Result Performing Organization Address [facility] de Phone [facility] * ALL CBC WITH AUTO DIFF (05/11/2024 9:47 AM EDT) [facility] WBC 7.6 4.0 - 11.0 10 [...] us Carmen Abbasi DO [facility] Final Result [facility] documented in this encounter Visit Diagnoses Not on filedocumented in this encounter
--- OUTSIDE RECORDS SUMMARY | 2025-07-23 10:06 | XMS_ITS | Encounter Summary ---
Author Organization [facility] [employer] [facility] tem Address [id number] [address] [place] [address] Care Team Providers Care District Medical Examiner Name Role Phone Mireya Baker APRN-INTERNATIONAL COORDINATOR Primary Care Provider + Encounter Details Date Type Department Care Team (Late st Contact Info) Description 07/30/2024 Orders Only [facility] Internal Medicine - Family Medicine [address] [place] [phone] Mireya Baker APRNINTERNATIONAL COORDINATOR [address] [facility] [address] Social History Tobacco Use Types Packs/Day Years [...] documented as of this encounter Care Teams District Medical Examiner Relationship Specialty Start Date End Date Mireya Baker, TRANSISTOR TESTER-INTERNATIONAL COORDINATOR [address] [place] [address] PCP - General Family Medicine 06/28/25 documented as of this encounter
--- OUTSIDE RECORDS SUMMARY | 2025-07-23 10:06 | XMS_ITS | Encounter Summary ---
Author Organization [facility] Address [address] [place] [address] Care Team Providers Care Environmental Engineering Assistant Name Role Phone Unavailable Primary Care Provider Unavailabl e Encounter Details Date Type Department Care Team (Late Contact Info) Description 05/18/2024 Abstract ADRIAN MORGAN [address] [phone] Harry Abbasi DO [address] [facility] [address] [facility] [address] [place], [place] [address] Social History Tobacco Use Types Packs/Day Years [...] EST Office Visit ADRIAN MORGAN [address] [place] [address] Alyssa Bazan PA [address] [place] [address] documented as of this encounter Visit Diagnoses Not on filedocumented in this encounter
--- OUTSIDE RECORDS SUMMARY | 2025-07-23 10:07 | XMS_ITS | Encounter Summary ---
Author Organization [facility] Address [address] [place] [address] Care Team Providers Care Hat Model Name Role Phone Unavailable Primary Care Provider Unavailabl e Encounter Details Date Type Department Care Team (Late Contact Info) Description 11/10/2024 Abstract ADRIAN MORGAN [address] [place] [address] Alka Russ, TONNY [address] [place], [place] [phone] Social History Tobacco Use Types Packs/Day Years [...] [address] [place] [phone] Alyssa Bazan PA [address] [address] documented as of this encounter Visit Diagnoses Not on filedocumented in this encounter
--- OUTSIDE RECORDS SUMMARY | 2025-07-23 10:07 | XMS_ITS | CCD ---
Author Organization [facility] CliniSyut Care Team Providers Care Director Of Advertising Sales Name Role Phone BOYDC, DR BEAN Primary [...] Unavailable Reid Jasmine MD Primary Care Provider MAIA COLÓNIANA Valentín Referring Unavailable SHIMONS, SUMMER GUTIÉRREZ Primary Care Unavailable SUZAN, SUMMER GUTIÉRREZ Attending Unavailable SUZAN, SUMMER GUTIÉRREZ Referring Unavailable KUNS, TATY Primary Care Unavailable KATARZYNA, NIVIA Valentín Attending Unavailable SUMMER DAVALOS Referring Unavailable KUNS, SUMMER GUTIÉRREZ Primary Care Unavailable YIMI BARRAGAN Attending Unavailable KATARZYNA, NIVIA L Referring Unavailable KATARZYNA, NIVIA L Primary Care Unavailable Unavailable Primary Care Provider Unavailabl e Kuns FENCE INSTALLER HELPER-HANDICRAFTS TEACHER, Summer Gutiérrez Primary Care Provider Katarzyna FENCE INSTALLER HELPER-TRANSITION MANAGER, Nivia Valentín Primary Care Provider BENI, ALYSSA Attending Unavailable AYLEEN, HARRY Attending Unavailable BENI, ALYSSA Attending Unavailable BENI, ALYSSA Attending Unavailable BENI, ALYSSA Attending Unavailable AYLEEN, HARRY Attending Unavailable AYLEEN, HARRY Attending Unavailable AYLEEN, HARRY Attending Unavailable BENI, ALYSSA Attending Unavailable AYLEEN, HARRY Attending Unavailable BENI, ALYSSA Attending Unavailable AYLEEN, HARRY Attending Unavailable AYLEEN, HARRY Attending Unavailable KATARZYNA, NIVIA L Primary Care Unavailable PANKAJ STEWART Attending Unavailable NIVIA COLÓN Primary Care Unavailable NIVIA COLÓN Primary Care Unavailable CATERINA MENESES Attending UnavailNivia Tse Primary Care Provider Allergies Allergy Classification Reported Allergen(s) Allergy Type Date of Onset Reaction(s) Facility (1 source) Ondansetron Drug Allergy [facility] Repository (20 sources) Ondansetron Drug Allergy 12-11-2022 Rash [facility] Work Phone: (7 sources) Ondansetron; Translations: [ONDANSETRON HCL] Drug Allergy [...] 09/26/2024 Active etonogestrel 68 mg drug implant (6 sources) Progestin Start: 12-17-2024 End: 12-17-2027 etonogestrel-elutin g 68 mg contraceptive implant 1 each FLUoxetine 10 mg oral capsule (1 source) Serotonin Reuptake Inhibitor take 1 capsule by mouth in the morning FLUoxetine (PROzac) 10 mg capsule Take 1 capsule (10 mg total) by mouth in the morning. Active fluticasone propionate 0.05 mg/actuat metered dose nasal spray (2 sources) Corticosteroid Start: 07-04-2024 take 2 spray(s) nasal route in the morning fluticasone propionate (FLONASE) 50 mcg/actuation nasal spray Administer 2 sprays into each nostril in the morning. 16 g 07/04/2024 Active ibuprofen 800 mg oral tablet (12 sources) Nonsteroidal Anti-inflammatory Drug Start: 11-11-2024 take 1 tablet by mouth every eight hours ibuprofen 800 MG tablet Take 800 mg by mouth every 8 (eight) hours 11/11/2024 Active Start: 07-31-2023 ibuprofen 800 MG tablet Take 800 mg by mouth in the morning and 800 mg at noon and 800 mg in the evening. 0 07/31/2023 Active metroNIDAZOLE 500 mg oral tablet (3 sources) Nitroimidazole Antimicrobial Start: 06-27-2025 End: 07-04-2025 take [...] hours. 0 Active 21-IRON FU-FOLIC ACID ORAL (2 sources) 21-IRON FU-FOLIC ACID ORAL Take by mouth [...] Discontinued (Therapy completed) take 1 tablet by rosenda th once in the morning norgestimate-ethinyl estradioL (ORTHO-CY [...] Laceration - injury Onset: 04-04-2025 Episodic Other non-traumatic joint disorders (1 source) Pain in wrist Onset: 06-28-2025 Episodic Other nutritional; endocrine; and metabolic disorders [...] Translations: [Nasal congestion] Onset: 07-04-2024 07-04-2024 Episodic Residual codes; unclassified [...] source) Backache; Translations: [Dorsalgia, unspecified] 06-27-2025 Episodic Sprains and strains (1 source) Unspecified sprain of left wrist, initial encounter; Translations: [Unspecified sprain of left wrist, initial encounter] Onset: 06-28-2025 Episodic Unclassified (2 sources) CONTACT W/AND (SUSP) EXPOS COVID-19; Translations: [CONTACT W/AND (SUSP) EXPOS COVID-19] Onset: 05-17-2022 Unclassified (1 source) Annual Exam Onset: 12-20-2023 Unclassified (1 source) Cold Like Symptoms Onset: 02-08-2025 Unclassified (1 source) Sore Throat, Earache Onset: 02-08-2025 Viral infection (1 source) COVID-19; Translations: [COVID-19] Onset: 05-17-2022 Past or Other Problems Problem Classification Problem Date Documented Da te Episodic/Chronic Mood disorders (4 sources) Mood disorders Onset: 02-17-2024 Resolved: 07-04-2024 02-17-2024 Other aftercare (12 sources) Surgical follow-up; Translations: [Encounter for follow-up examination after completed treatment for conditions other than malignant neoplasm] Onset: 12-12-2024 11-15-2024 Episodic Other and delivery including normal (20 sources) Third trimester ; Translations: [Encounter for supervision of normal , unspecified, third trimester] Onset: 09-25-2024 Resolved: 11-09-2024 08-28-2024 Episodic Other upper respiratory infections (3 sources) Acute upper respiratory infection, unspecified; Translations: [Viral upper respiratory tract infection] Onset: 07-04-2024 07-04-2024 Episodic Residual codes; unclassified (20 sources) Gestation [...] W/AND (SUSP) EXPOS COVID-19] Onset: 05-07-2022 Unclassified (4 sources) Onset: 09-14-2023 09-14-2023 Results Test Name Value Interpretation Reference Range Facility IGP,APTIMA HPV,AGE GDLNon AGE GDLN ACOG TESTING Note . [facility] Comment on above: TESTS RESULT FLAG UN ITS REF RANGE LAB Clinician Provided Cytology Information Source.............Cervix;Endocervix No. of containers..01 ThinPrep Vial Age Algo ACOG Keke... FLAG LEGEND: L-Low Normal,H-High Normal,LL-Alert Low,HH-Alert High <-Panic Low,>-Panic High,A-Abnormal,AA-Critical Abnormal Performed at: 01 =G [address] [place] [address] Darlene Gonzalez MD, IGP, RFX APTIMA HPV ASCU Note . [facility] Comment on above: TESTS RESULT FLAG UN ITS REF RANGE LAB DIAGNOSIS: 02 NEGATIVE FOR INTRAEPITHELIAL LESION OR MALIGNANCY. Specimen adequacy: 02 Satisfactory for evaluation. Endocervical and/or squamous metaplastic cells (endocervical component) are present. Performed by: 02 Tarsha Palencia Customer Service Teller ([facility]) . 02 Note: Note 02 The Pap [...] High <-Panic Low,>-Panic High,A-Abnormal,AA-Critical Abnormal Performed at: [facility] [address] [place] [address] Darlene Gonzalez MD, Performed at: =[facility] [address] [id number] Sink Cutter: Darlene Gonzalez MD, Phone: [phone] Performed at: WB - [address] [place] [id number] Sink Cutter: Darlene Gonzalez MD, Phone: [phone] BRUSH-SPATULA CERVIX ENDOCERVIX [facility] RECURRENT VAGINITIS (HTRX)on 06-28-2025 ATOPOBIUM VAGINAE 0 [facility] ATOPOBIUM VAGINAE Not detected [facility] BVAB 2,3 (BACTERIAL VAGINOSIS ASSOCIATED BACTERIA 2, 3); MOBILUNCUS SPP 0 [facility] BVAB 2,3 (BACTERIAL VAGINOSIS ASSOCIATED BACTERIA 2, 3); MOBILUNCUS SPP Not detected [facility] EARL ALBICANS, PARAPSILOSIS, TROPICALIS 0 [facility] EARL ALBICANS, PARAPSILOSIS, TROPICALIS Not detected [facility] EARL GLABRATA 0 [facility] EARL GLABRATA Not detected [facility] EARL KRUSEI 0 [facility] EARL KRUSEI Not detected [facility] CHLAMYDIA TRACHOMATIS 0 [facility] CHLAMYDIA TRACHOMATIS Not detected [facility] GARDNERELLA VAGINALIS 0 [facility] GARDNERELLA VAGINALIS Not detected [facility] MEGASPHAERA (TYPES 1, 2) 0 [facility] MEGASPHAERA (TYPES 1, 2) Not detected [facility] MYCOPLASMA GENITALIUM 0 [facility] MYCOPLASMA GENITALIUM Not detected [facility] NEISSERIA GONORRHOEAE 0 [facility] NEISSERIA GONORRHOEAE Not detected [facility] TRICHOMONAS VAGINALIS 0 [facility] TRICHOMONAS VAGINALIS Not detected [facility] XR WRIST LT MIN 3 VWSon 06-10 XR WRIST LT MIN 3 VWS XR WRIST LT MIN 3 VWS XR WRIST LT MIN 3 VWS Clinical history:left wrist pain pain Comparison: 02/09/2021 Impression: No acute process, fracture or dislocation. Alignment and mineralization appear to be within normal limits. If there is snuffbox tenderness or concern for scaphoid injury, follow up evaluation in 7 to10 days may be of additional diagnostic benefit. Finalized by Jose Aj MD on 06/28/2025 8:39 AM Normal [facility] POCT RAPID STREP Aon 02-2 025 S. pyogenes Ag IA Ql (Unsp spec) Positive Abnormal Negative [facility] Comment on above: Performed By: #### N SAS #### [facility] [address] [place] [address] VIR SARS/FLU A+B/RSV BY NAAT/MOL ECULAR (M4RT COLLECTION TUBE)on 02-08-2025 SARS/FLU A+B/RSV BY NAAT/MOLECULAR (M4RT COLLECTION TUBE) FLU A PCR Negative FLU B PCR Negative RSV BY PCR Negative SARS COV 2 BY PCR Not Detected Normal Not Detected [facility] Comment on above: Order Comment: The [employer] Xpress SARS-CoV-2/Flu/RSV Plus test is a rapid, [...] operators who are performing tests using either AdaptiveBlue or Whim systems and is limited to laboratories that [...] specimen repeat. Fact Sheet for Healthcare Providers: https://www.fda.gov/media/622837/download Fact Sheet for Patients: https://www.fda.gov/media/287570/download Performed By: #### C OVFLR #### [facility] ([facility]) [address] [place] [address]. [place] [address] VIR ALL CBC WITH AUTO DIFFon BASOPHILS ABSOLUTE AUTO 0 [facility] Basophils/100 WBC (Bld) 0.3 % 0.2 - 2.0 % [facility] Eosinophils/100 WBC (Bld) 0.3 % Low 0.9 - 7.0 % [facility] Erythrocyte distribution width (RBC) [Ratio] 14.4 % 11.0 - 15.0 % [facility] Hematocrit (Bld) [Volume fraction] 26.5 % Low 36.0 - 48.0 % [facility] Hemoglobin (Bld) [Mass/Vol] 8.8 g/dL Low 12.0 - 16.0 g/dL [facility] IMMATURE GRANULOCYTES ABS AUTO 0.06 High [facility] Immature granulocytes/100 WBC (Bld) 0.5 % 0.0 - 0.5 % [facility] Interpretation and review of laboratory results Abnormal [facility] LYMPHOCYTES ABSOLUTE AUTO 2.3 [facility] Lymphocytes/100 WBC (Bld) 19.6 % Low 20.5 - 60.0 % [facility] MCH (RBC) [Entitic mass] 28.4 pg 26.7 - 34.0 pg [facility] MCHC (RBC) [Mass/Vol] 33.2 g/dL 29.9 - 35.2 g/dL [facility] MCV (RBC) [Entitic vol] 85.5 fL 81.0 - 99.0 fL [facility] MONOCYTES ABSOLUTE AUTO 1.1 High [facility] Monocytes/100 WBC (Bld) 9.1 % 1.7 - 12.0 % [facility] NEUTROPHILS ABSOLUTE AUTO 8.2 High [facility] Neutrophils/100 WBC (Bld) 70.2 % 43.0 - 75.0 % [facility] Platelet mean volume (Bld) [Entitic vol] 10.5 fL 9.5 - 13.5 fL [facility] TBH EO # 0 [facility] TBH PLT 215 [facility] TB RBC 3.1 Low [facility] TB WBC 11.7 High [facility] ALL CBC WITH AUTO DIFFon BASOPHILS ABSOLUTE AUTO 0 [facility] Basophils/100 WBC (Bld) 0.4 % 0.2 - 2.0 % [facility] Eosinophils/100 WBC (Bld) 1.5 % 0.9 - 7.0 % [facility] Erythrocyte distribution width (RBC) [Ratio] 14.2 % 11.0 - 15.0 % [facility] Hematocrit (Bld) [Volume fraction] 32.1 % Low 36.0 - 48.0 % [facility] Hemoglobin (Bld) [Mass/Vol] 10.8 g/dL Low 12.0 - 16.0 g/dL [facility] IMMATURE GRANULOCYTES ABS AUTO 0.03 [facility] Immature granulocytes/100 WBC (Bld) 0.4 % 0.0 - 0.5 % [facility] Interpretation and review of laboratory results Abnormal [facility] LYMPHOCYTES ABSOLUTE AUTO 2 [facility] Lymphocytes/100 WBC (Bld) 27.6 % 20.5 - 60.0 % [facility] MCH (RBC) [Entitic mass] 28.5 pg 26.7 - 34.0 pg [facility] MCHC (RBC) [Mass/Vol] 33.6 g/dL 29.9 - 35.2 g/dL [facility] MCV (RBC) [Entitic vol] 84.7 fL 81.0 - 99.0 fL [facility] MONOCYTES ABSOLUTE AUTO 0.7 [facility] Monocytes/100 WBC (Bld) 10 % 1.7 - 12.0 % [facility] NEUTROPHILS ABSOLUTE AUTO 4.3 [facility] Neutrophils/100 WBC (Bld) 60.1 % 43.0 - 75.0 % [facility] Platelet mean volume (Bld) [Entitic vol] 10.7 fL 9.5 - 13.5 fL [facility] RBC 3.79 Low [facility] TB WBC 7.2 [facility] Urinalysis macro (dipstick) panel (U)on 11-08-2024 Bilirubin, UA Negative Negative - 4(70) +++ mg/dL [facility] Blood, UA Negative Negative - 50 Jaguar/mcL [facility] Clarity, UA Clear [facility] Color, UA Yellow [facility] Glucose, UA Negative Negative - 2000(110) ++++ mg/dL [facility] Interpretation and review of laboratory results Abnormal [facility] Ketones, UA Negative Negative - 160(16) ++++ mg/dL [facility] Leukocytes, UA Trace Negative - 500+++ Lizeth/mcL [facility] Nitrite, UA Negative Negative - Positive [facility] pH, UA 7 5 - 9 [facility] Protein, UA Positive Negative - 1999(20) ++++ mg/dL [facility] Comment on above: 30 Spec Grav, UA 1.025 1 - 1.03 [facility] Urobilinogen, UA 1.0 0.2 - 12 mg/dL [facility] Urinalysis macro (dipstick) panel (U)on 10-31-2024 Bilirubin, UA Negative Negative - 4(70) +++ mg/dL [facility] Blood, UA Negative Negative - 50 Jagura/mcL [facility] Clarity, UA Clear [facility] Color, UA Yellow [facility] Glucose, UA Negative Negative - 1999(110) ++++ mg/dL [facility] Interpretation and review of laboratory results Abnormal [facility] Ketones, UA Negative Negative - 160(16) ++++ mg/dL [facility] Leukocytes, UA Trace Negative - 500+++ Lizeth/mcL [facility] Nitrite, UA Negative Negative - Positive [facility] pH, UA 6.5 5 - 9 [facility] Protein, UA Trace Negative - 1999(20) ++++ mg/dL [facility] Spec Grav, UA 1.03 1 - 1.03 [facility] Urobilinogen, UA 0.2 0.2 - 12 mg/dL [facility] ALL MISCELLANEOUS TESTon MISCELLANEOUS TEST COMMENT . [facility] Comment on above: Test Ordered: [id number] Strep Gp B Culture+Rflx Strep Gp B Culture+Rflx Negative CB Reference Range: Negative Centers for Disease Control and Prevention (CDC) and [place] [employer] of Obstetricians and Gynecologists (ACOG) guidelines [...] resistance to clindamycin is noted. Performed at: [facility] [address] [id number] Sink Cutter: Ender Win PhD, Phone: [phone] GROUP B STREP [id number] Group B Streptococcus Colonization Detection Culture With [facility]inalysis macro (dipstick) panel (U)on 10-22-2024 Bilirubin, UA Negative Negative - 4(70) +++ mg/dL [facility] Blood, UA Negative Negative - 50 Jaguar/mcL [facility] Clarity, UA Clear [facility] Color, UA Yellow [facility] Glucose, UA Negative Negative - 1999(110) ++++ mg/dL [facility] Interpretation and review of laboratory results Abnormal [facility] Ketones, UA Negative Negative - 160(16) ++++ mg/dL [facility] Leukocytes, UA Positive Negative - 500+++ Lizeth/mcL [facility] Comment on above: small Nitrite, UA Negative Negative - Positive [facility] pH, UA 8.5 5 - 9 [facility] Protein, UA Positive Negative - 1999(20) ++++ mg/dL [facility] Comment on above: 30 Spec Grav, UA 1.02 1 - 1.03 [facility] Urobilinogen, UA 0.2 0.2 - 12 mg/dL [facility] Urinalysis macro (dipstick) panel (U)on 10-15-2024 Bilirubin, UA Negative Negative - 4(70) +++ mg/dL [facility] Blood, UA Negative Negative - 50 Jaguar/mcL [facility] Clarity, UA Clear [facility] Color, UA Yellow [facility] Glucose, UA Negative Negative - 1999(110) ++++ mg/dL [facility] Interpretation and review of laboratory results Normal [facility] Ketones, UA Negative Negative - 160(16) ++++ mg/dL [facility] Leukocytes, UA Negative Negative - 500+++ Lizeth/mcL [facility] Nitrite, UA Negative Negative - Positive [facility] pH, UA 7 5 - 9 [facility] Protein, UA Negative Negative - 1999(20) ++++ mg/dL [facility] Spec Grav, UA 1.02 1 - 1.03 [facility] Urobilinogen, UA 1.0 0.2 - 12 mg/dL [facility] Urinalysis macro (dipstick) panel (U)on 09-25-2024 Bilirubin, UA Negative Negative - 4(70) +++ mg/dL [facility] Blood, UA Negative Negative - 50 Jaguar/mcL [facility] Clarity, UA Clear [facility] Color, UA Yellow [facility] Glucose, UA Negative Negative - 1999(110) ++++ mg/dL [facility] Interpretation and review of laboratory results Normal [facility] Ketones, UA Negative Negative - 160(16) ++++ mg/dL [facility] Leukocytes, UA Negative Negative - 500+++ Lizeth/mcL [facility] Nitrite, UA Negative Negative - Positive [facility] pH, UA 7 5 - 9 [facility] Protein, UA Negative Negative - 1999(20) ++++ mg/dL [facility] Spec Grav, UA 1.01 1 - 1.03 [facility] Urobilinogen, UA 0.2 0.2 - 12 mg/dL [facility] Urinalysis macro (dipstick) panel (U)on 09-11-2024 Bilirubin, UA Negative Negative - 4(70) +++ mg/dL [facility] Blood, UA Negative Negative - 50 Jaguar/mcL [facility] Clarity, UA Clear [facility] Color, UA Yellow [facility] Glucose, UA Negative Negative - 1999(110) ++++ mg/dL [facility] Interpretation and review of laboratory results Normal [facility] Ketones, UA Negative Negative - 160(16) ++++ mg/dL [facility] Leukocytes, UA Negative Negative - 500+++ Lizeth/mcL [facility] Nitrite, UA Negative Negative - Positive [facility] pH, UA 5.5 5 - 9 [facility] Protein, UA Negative Negative - 1999(20) ++++ mg/dL [facility] Spec Grav, UA 1.02 1 - 1.03 [facility] Urobilinogen, UA 1.0 0.2 - 12 mg/dL [facility] Urinalysis macro (dipstick) panel (U)on 08-28-2024 Bilirubin, UA Negative Negative - 4(70) +++ mg/dL [facility] Blood, UA Negative Negative - 50 Jaguar/mcL [facility] Clarity, UA Clear [facility] Color, UA Light Yellow [facility] Glucose, UA Negative Negative - 1999(110) ++++ mg/dL [facility] Interpretation and review of laboratory results Normal [facility] Ketones, UA Negative Negative - 160(16) ++++ mg/dL [facility] Leukocytes, UA Negative Negative - 500+++ Lizeth/mcL [facility] Nitrite, UA Negative Negative - Positive [facility] pH, UA 5.5 5 - 9 [facility] Protein, UA Negative Negative - 1999(20) ++++ mg/dL [facility] Spec Grav, UA 1.015 1 - 1.03 [facility] Urobilinogen, UA 1.0 0.2 - 12 mg/dL [facility] Urinalysis macro (dipstick) panel (U)on 07-30-2024 Bilirubin, UA Negative Negative - 4(70) +++ mg/dL [facility] Blood, UA Negative Negative - 50 Jaguar/mcL [facility] Clarity, UA Clear [facility] Color, UA Yellow [facility] Glucose, UA Negative Negative - 1999(110) ++++ mg/dL [facility] Interpretation and review of laboratory results Normal [facility] Ketones, UA Negative Negative - 160(16) ++++ mg/dL [facility] Leukocytes, UA Negative Negative - 500+++ Lizeth/mcL [facility] Nitrite, UA Negative Negative - Positive [facility] pH, UA 6.5 5 - 9 [facility] Protein, UA Negative Negative - 1999(20) ++++ mg/dL [facility] Spec Grav, UA 1.015 1 - 1.03 [facility] Urobilinogen, UA 0.2 0.2 - 12 mg/dL [facility] POCT Influenza A/Influenza B /SARS-COV-2 Veritoron 07-04-2024 External Poct Influenza A Antigen Negative [facility] External Poct Influenza B Antigen Negative [facility] SARS-CoV-2 (COVID-19) Ag IA.rapid Ql (Resp) Negative [facility] Urinalysis macro (dipstick) panel (U)on 06-28-2024 Bilirubin, UA Positive Negative - 4(70) +++ mg/dL [facility] Comment on above: small Blood, UA Negative Negative - 50 Jaguar/mcL [facility] Clarity, UA Clear [facility] Color, UA Yellow [facility] Glucose, UA Negative Negative - 2000(110) ++++ mg/dL [facility] Interpretation and review of laboratory results Abnormal [facility] Ketones, UA Positive Negative - 160(16) ++++ mg/dL [facility] Comment on above: 15 Leukocytes, UA Negative Negative - 500+++ Lizeth/mcL [facility] Nitrite, UA Negative Negative - Positive [facility] pH, UA 5.5 5 - 9 [facility] Protein, UA Trace Negative - 2000(20) ++++ mg/dL [facility] Spec Grav, UA 1.030 1 - 1.03 [facility] Urobilinogen, UA 0.2 0.2 - 12 mg/dL [facility] AFP, SERUM, OPEN SPINA BIFID Aon 05-31-2024 AFP MOM 1.17 . [facility] AFP VALUE 27.6 ng/mL . [facility] COMMENT: Comment . [facility] Comment on above: Vandana Nina , Ph.D., [facility] Director References: Available Upon Request. Multiples Of Median Cutoffs For AFP Elevations Rodriguez 2.5 Black 2.8 IDD 2.0 Twins 4.5 Abbreviation Definitions IDD - Insulin Dep Diabetes OSBR - Open Spina Bifida Risk For further inquiries contact [facility] at [phone]. This test was developed and its performance characteristics determined by [employer] It has not been cleared or approved by the Food and Drug Administration. Performed at: [facility] [address] [place], [place] [id number] Sink Cutter: Prashant Phoenix [facility], Phone: [phone] GEST. AGE ON COLLECTION DATE 15.6 . weeks [facility] GESTAT. AGE BASED ON Ultrasound . [facility] Comment on above: 15.6 on 05/29/2024 Recalculations are not recommended when gestational dating by LMP and ultrasound are within 10 days. INSULIN DEP DIABETES No . [facility] INTERPRETATION Comment . [facility] Comment on above: Interpretation: Scre [...] Customer Services to discuss available options. The [place] [employer] recommends amniocentesis be offered to women age 35 and older. [age] [facility] MULTIPLE GESTATION No . [facility] OSBR RISK 1 [place] 7137 . [facility] RACE . [facility] [facility] Report . [facility] TEST RESULTS: Negative . [facility] WEIGHT 249 . lbs [facility] N N ULTRASOUND [id number] 15 N 1 Y 249 N N N N N White/ [facility] URETHRITIS/DISCHARGE PLUS VA GINITIS (HTRX)on 05-30-2024 ATOPOBIUM VAGINAE 0.000 [facility] ATOPOBIUM VAGINAE Not detected [facility] BVAB 2,3 (BACTERIAL VAGINOSIS ASSOCIATED BACTERIA 2, 3); MOBILUNCUS SPP 0.000 [facility] BVAB 2,3 (BACTERIAL VAGINOSIS ASSOCIATED BACTERIA 2, 3); MOBILUNCUS SPP Not detected [facility] EARL ALBICANS, PARAPSILOSIS, TROPICALIS 0.000 [facility] EARL ALBICANS, PARAPSILOSIS, TROPICALIS Not detected [facility] EARL GLABRATA 0.000 [facility] EARL GLABRATA Not detected [facility] EARL KRUSEI 0.000 [facility] EARL KRUSEI Not detected [facility] CHLAMYDIA TRACHOMATIS 0.000 [facility] CHLAMYDIA TRACHOMATIS Not detected [facility] GARDNERELLA VAGINALIS 0.000 [facility] GARDNERELLA VAGINALIS Not detected [facility] MEGASPHAERA (TYPES 1, 2) 0.000 [facility] MEGASPHAERA (TYPES 1, 2) Not detected [facility] MYCOPLASMA GENITALIUM 0.000 [facility] MYCOPLASMA GENITALIUM Not detected [facility] NEISSERIA GONORRHOEAE 0.000 [facility] NEISSERIA GONORRHOEAE Not detected [facility] TRICHOMONAS VAGINALIS 0.000 [facility] TRICHOMONAS VAGINALIS Not detected [facility] Cytology Cervical or vaginal smear or scraping studyon 05-29-2024 [facility] Urinalysis macro (dipstick) panel (U)on 05-29-2024 Bilirubin, UA Negative Negative - 4(70) +++ mg/dL [facility] Blood, UA Negative Negative - 50 Jaguar/mcL [facility] Clarity, UA Clear [facility] Color, UA Karen [facility] Glucose, UA Negative Negative - 1999(110) ++++ mg/dL [facility] Interpretation and review of laboratory results Normal [facility] Ketones, UA Negative Negative - 160(16) ++++ mg/dL [facility] Leukocytes, UA Negative Negative - 500+++ Lizeth/mcL [facility] Nitrite, UA Negative Negative - Positive [facility] pH, UA 7.0 5 - 9 [facility] Protein, UA Negative Negative - 1999(20) ++++ mg/dL [facility] Spec Grav, UA 1.010 1 - 1.03 [facility] Urobilinogen, UA 0.2 0.2 - 12 mg/dL [facility] CBC AND AUTO DIFFon 02-17-20 ABSOLUTE BASOPHIL 0.2 X10E9/L Normal 0.0-0.2 [facility] Comment on above: Performed By: #### CLAUS Murray BCAR, 2275-4 #### [facility] ([id number]) [address], [address] [place] [address] ABSOLUTE NEUTROPHIL 3.1 X10E9/L Normal 1.5-6.6 [facility] Comment on above: Performed By: #### Terri UGALDE FEPR, 2275-4 #### [facility] ([id number]) [address], [address] [place] [address] Basophils/100 WBC (Bld) 3.0 % Normal [facility] Comment on above: Performed By: #### Terri UGALDE FEPR, 6-4 #### [facility] ([id number]) [address], [address] [place] [address] Eosinophils (Bld) [#/Vol] 0.2 10*3/uL Normal 0.0-0.4 [facility] Comment on above: Performed By: #### Terri UGALDE FEPR, 6-4 #### [facility] ([id number]) [address], [address] [place] [address] Eosinophils/100 WBC (Bld) 3.4 % Normal [facility] Comment on above: Performed By: #### C BCA, FEPR, 2275-4 #### [facility] ([id number]) [address], [facility] [address] [place] [address] Erythrocyte distribution width (RBC) [Ratio] 13.3 % Normal 11.5-15.0 [facility] Comment on above: Performed By: #### C BCA, FEPR, 2275-4 #### [facility] ([id number]) [address] [address] [place] [address] Hematocrit (Bld) [Volume fraction] 40.3 % Normal 35-47 [facility] Comment on above: Performed By: #### C BCA, FEPR, 4 #### [facility] ([id number]) [address], [address] [place] [address] Hemoglobin (Bld) [Mass/Vol] 13.8 g/dL Normal 11.7-15.5 [facility] Comment on above: Performed By: #### C BCA, FEPR, 2275- #### [facility] ([id number]) [address] [address] [place] [address] Lymphocytes (Bld) [#/Vol] 2.1 10*3/uL Normal 1.0-3.5 [facility] Comment on above: Performed By: #### C BCA, FEPR, 2275-4 #### [facility] ([id number]) [address] [address] [place] [address] Lymphocytes/100 WBC (Bld) 35.1 % Normal [facility] Comment on above: Performed By: #### C BCA, FEPR, 2275-4 #### [facility] ([id number]) [address] [address] [place] [address] MCH (RBC) [Entitic mass] 29.0 pg Normal 27-34 [facility] Comment on above: Performed By: #### Terri UGALDE FEPR, 2276-01 #### [facility] ([id number]) [address], [address] [place] [address] MCHC (RBC) [Mass/Vol] 34.2 g/dL Normal 32-36 [facility] Comment on above: Performed By: #### C AFTAB, FEPR, 2276-01 #### [facility] ([id number]) [address], [address] [place] [address] MCV (RBC) [Entitic vol] 85 fL Normal 80-100 [facility] Comment on above: Performed By: #### Terri UGALDE FEPR, 2276-01 #### [facility] ([id number]) [address], [address] [place] [address] Monocytes (Bld) [#/Vol] 0.5 10*3/uL Normal 0-0.9 [facility] Comment on above: Performed By: #### Terri UGALDE, FEPR, 2276-01 #### [facility] ([id number]) [address], [address] [place] [address] Monocytes/100 WBC (Bld) 7.5 % Normal [facility] Comment on above: Performed By: #### Terri UGALDE, FEPR, 2276-01 #### [facility] ([id number]) [address], [address] [place] [address] Neutrophils/100 WBC (Bld) 51.0 % Normal [facility] Comment on above: Performed By: #### Terri UGALDE, FEPR, 2276-01 #### [facility] ([id number]) [address], [address] [place] [address] Platelet mean volume (Bld) [Entitic vol] 8.8 fL Normal 7-12 [facility] Comment on above: Performed By: #### Terri UGALDE, FEPR, 2276-4 #### [facility] ([id number]) [address], [address] [address] Platelets (Bld) [#/Vol] 272 10*3/uL Normal 150-450 [facility] Comment on above: Performed By: #### Terri UGALDE, FEPR, 6-4 #### [facility] ([id number]) [address], [facility] [address] [place] [address] RBC COUNT 4.75 X10E12/L Normal 3.80-5.20 [facility] Comment on above: Performed By: #### Terri UGALDE, FEPR, 6-4 #### [facility] ([id number]) [address], [address] [address] WBC (Bld) [#/Vol] 6.1 10*3/uL Normal 4.0-11.0 [facility] Comment on above: Performed By: #### Terri UGALDE, FEPR, 6-4 #### [facility] ([id number]) [address], [address] [address] CBC auto differentialon 05 0 Basophils (Bld) [#/Vol] 0.2 10*3/uL [facility] Basophils/100 WBC (Bld) 3.0 % [facility] Eosinophils (Bld) [#/Vol] 0.2 10*3/uL [facility] Eosinophils/100 WBC (Bld) 3.4 % [facility] Erythrocyte distribution width (RBC) [Ratio] 13.3 % 11.5 - 15.0 % [facility] Hematocrit (Bld) [Volume fraction] 40.3 % 35 - 47 % [facility] Hemoglobin (Bld) [Mass/Vol] 13.8 g/dL 11.7 - 15.5 g/dL [facility] Lymphocytes (Bld) [#/Vol] 2.1 10*3/uL [facility] Lymphocytes/100 WBC (Bld) 35.1 % [facility] MCH (RBC) [Entitic mass] 29.0 pg 27 - 34 pg [facility] MCHC (RBC) [Mass/Vol] 34.2 g/dL 32 - 36 g/dL [facility] MCV (RBC) [Entitic vol] 85 fL 80 - 100 fL [facility] Monocytes (Bld) [#/Vol] 0.5 10*3/uL [facility] Monocytes/100 WBC (Bld) 7.5 % [facility] Neutrophils (Bld) [#/Vol] 3.1 10*3/uL [facility] Neutrophils/100 WBC (Bld) 51.0 % [facility] Platelet mean volume (Bld) [Entitic vol] 8.8 fL 7 - 12 fL [facility] Platelets (Bld) [#/Vol] 272 10*3/uL [facility] RBC (Bld) [#/Vol] 4.75 10*6/uL [facility] WBC corrected for nucl RBC Auto (Bld) [#/Vol] 6.[address] [facility] FERRITINon 02-17-2024 Ferritin [Mass/Vol] 50 ng/mL Normal 11-307 [facility] Comment on above: Performed By: #### C BCA, FEPR, 2276-4 #### [facility] ([id number]) [address] [address] Ferritinon 02-17-2024 Ferritin [Mass/Vol] 50 ng/mL 11 - 307 ng/mL [facility] Ferritin [Mass/Vol]on 2023 [facility] IRON PROFILEon 02-17-2024 Iron [Mass/Vol] 59 ug/dL Normal 50-170 [facility] Comment on above: Performed By: #### C BCA, FEPR, 2276-4 #### [facility] ([id number]) [address] [facility] [facility] [address] [place] [address] IRON BINDING 384 ug/dL Normal 250-425 [facility] Comment on above: Performed By: #### C BCA, FEPR, 2276-4 #### [facility] ([id number]) [address], [address] [place] [address] IRON SATURATION 15 % SATURATION Normal 15-50 [facility] Comment on above: Performed By: #### C BCA, FEPR, 2276-4 #### [facility] ([id number]) [address] [facility], [address] [place] [address] Iron and TIBCon 02-17-2024 Iron [Mass/Vol] 59 ug/dL 50 - 170 ug/dL [facility] Iron binding capacity [Mass/Vol] 384 ug/dL 250 - 425 ug/dL [facility] Iron saturation [Mass fraction] 15 [facility] PREG QUANT HCGon 024 HCG QUANTITATIVE <1 mIU/mL [facility] Comment on above: 5-50 0.2-1 WEEK 50-500 1-2 WEEKS 100-5,000 2-3 WEEKS 500-10,000 3-4 WEEKS 1,000-50,000 4-5 WEEKS 10,000-100,000 5-6 WEEKS 15,000-200,000 6-8 WEEKS 10,000-100,000 2-3 MONTHS [facility] CBC AUTO DIFFon 01-19-2023 BASO # 0.1 103/ul Normal 0.0-0.1 [facility] Comment on above: Performed By: #### C BC #### [facility] [address] [place] [address] Dr. Kristie Marrero Basophils/100 WBC (Bld) 0.5 % Normal 0.2-2.0 [facility] Comment on above: Performed By: #### C BC #### [facility] [address] [place] [address] Dr. Kristie Marrero EO # 0.2 103/ul Normal 0.0-0.7 [facility] Comment on above: Performed By: #### C BC #### [facility] [address] [place] [address] Dr. Kristie Marrero Eosinophils/100 WBC (Bld) 2.0 % Normal 0.9-7.0 [facility] Comment on above: Performed By: #### C BC #### [facility] [address] [place] [address] Dr. Kristie Marrero Erythrocyte distribution width (RBC) [Ratio] 12.0 % Normal 11.0-15.0 [facility] Comment on above: Performed By: #### C BC #### [facility] [address] [place] [address] Dr. Kristie Marrero Hematocrit (Bld) [Volume fraction] 38.0 % Normal 36.0-48.0 [facility] Comment on above: Performed By: #### C BC #### [facility] [address] [place] [address] Dr. Kristie Marrero Hemoglobin (Bld) [Mass/Vol] 13.3 g/dL Normal 12.0-16.0 [facility] Comment on above: Performed By: #### C BC #### [facility] [address] [place] [address] Dr. Kristie Marrero IG # 0.04 10e3/ul Critically high 0.00-0.03 [facility] Comment on above: Performed By: #### C BC #### [facility] [address] [place] [address] Dr. Kristie Marrero IG % 0.4 % Normal 0.0-0.5 [facility] Comment on above: Performed By: #### C BC #### [facility] [address] [place] [address] Dr. Kristie Marrero LYMPH # 1.3 103/ul Normal 1.2-3.8 [facility] Comment on above: Performed By: #### C BC #### [facility] [address] [place] [address] Dr. Kristie Marrero Lymphocytes/100 WBC (Bld) 12.3 % Critically low 20.5-60.0 [facility] Comment on above: Performed By: #### C BC #### [facility] [address] [place] [address] Dr. Kristie Marrero MANUAL DIFF REQ NO Normal [facility] Comment on above: Performed By: #### C BC #### [facility] [address] [place] [address] Dr. Kristie Marrero MCH (RBC) [Entitic mass] 29.2 pg Normal 26.7-34.0 [facility] Comment on above: Performed By: #### C BC #### [facility] [address] [place] [address] Dr. Kristie Marrero MCHC (RBC) [Mass/Vol] 35.0 g/dL Normal 29.9-35.2 [facility] Comment on above: Performed By: #### C BC #### [facility] [address] [place] [address] Dr. Kristie Marrero MCV (RBC) [Entitic vol] 83.3 fL Normal 81.0-99.0 [facility] Comment on above: Performed By: #### C BC #### [facility] [address] [place] [address] Dr. Kristie Marrero MONO # 0.7 103/ul Normal 0.3-0.8 [facility] Comment on above: Performed By: #### C BC #### [facility] [address] [place] [address] Dr. Kristie Marrero Monocytes/100 WBC (Bld) 7.0 % Normal 1.7-12.0 [facility] Comment on above: Performed By: #### C BC #### [facility] [address] [place] [address] Dr. Kristie Marrero NEUT # 8.2 103/ul Critically high 1.4-6.5 [facility] Comment on above: Performed By: #### C BC #### [facility] [address] [place] [address] Dr. Kristie Marrero Neutrophils/100 WBC (Bld) 77.8 % Critically high 43.0-75.0 [facility] Comment on above: Performed By: #### C BC #### [facility] [address] [place] [address] Dr. Kritsie Marrero Platelet mean volume (Bld) [Entitic vol] 9.5 fL Normal 9.5-13.5 [facility] Comment on above: Performed By: #### C BC #### [facility] [address] [place] [address] Dr. Kristie Marrero PLT 265 103/ul Normal 150-450 [facility] Comment on above: Performed By: #### C BC #### [facility] [address] [place] [address] Dr. Kristie Marrero RBC 4.56 106/ul Normal 4.20-5.40 [facility] Comment on above: Performed By: #### C BC #### [facility] [address] [place] [address] Dr. Kristie Marrero WBC 10.5 103/ul Normal 4.0-11.0 [facility] Comment on above: Performed By: #### C BC #### [facility] [address] [place] [address] Dr. Kristie Marrero PREG HCG QUALon 01-19-2023 , QUAL Negative Normal NEGATIVE [facility] Comment on above: Performed By: #### P REG #### [facility] [address] [place] [address] Dr. Kristie Marrero CHLAMYDIA/GONOCOCCUS RADHA (SW AB/URINE/PAPon 11-19-2022 Chlamydia trachomatis, RADHA Negative Normal Negative [facility] Comment on above: Performed By: #### C T/NGNA #### [facility] [address] [place] [address] Dr. Kristie Marrero Neisseria gonorrhoeae, RADHA Negative Normal Negative [facility] Comment on above: Performed By: #### C T/NGNA #### [facility] [address] [place] [address] Dr. Kristie Marrero VAGINITIS/VAGINOSIS DNA PROB Syed 11-18-2022 Earl species Negative Normal Negative [facility] Comment on above: Performed By: #### V AGINT #### [facility] [address] [place] [address] Dr. Kristie Marrero Gardnerella vaginalis Positive Abnormal Negative [facility] Comment on above: Performed By: #### V AGINT #### [facility] [address] [place], [place] [address] Dr. Kristie Marrero Trichomonas vaginalis Negative Normal Negative [facility] Comment on above: Performed By: #### V AGINT #### [facility] [address] [place], [place] [address] Dr. Kristie Marrero Covid-19 PCR (CVDTB)on 04-10 SARS-CoV-2 (COVID-19) RNA RADHA+probe Ql (Unsp spec) Detected Critically abnormal NOT DETECTED [facility] Comment on above: Result Comment: This test is not yet approved or cleared by the [place] FDA. When there are no FDA-approved or cleared tests available, and other criteria are met, FDA can make tests available under an emergency access mechanism called an Emergency Use Authorization (EUA). The EUA for this test is supported by the Histology Technician of Health and Human Service's (HHS's) declaration [...] used). Performed By: #### C VDTBH #### [facility] [address] [place] [id number] Kristie Marrero Vital Signs Date Time Vital Sign Value Performing Clinician Facility 06-27-2025 10:47-0400 Body mass index (BMI) [Ratio] 42.91 kg/m2 jslyhl DO Work Phone: [facility] 06-27-2025 10:47-0400 Body weight 124.29 kg Harry [employer] Work Phone: [facility] 06-27-2025 10:47-0400 Diastolic blood pressure 70 mm[Hg] Harry [employer] Work Phone: [facility] 06-27-2025 10:47-0400 Systolic blood pressure 100 mm[Hg] Harry Ayleen DO Work Phone: [facility] 05-27-2025 10:08-0400 Body mass index (BMI) [Ratio] 42.52 kg/m2 Harry Ayleen DO Work Phone: [facility] 05-27-2025 10:08-0400 Body weight 123.15 kg Harry Ayleen DO Work Phone: [facility] 05-27-2025 10:08-0400 Diastolic blood pressure 84 mm[Hg] Harry Ayleen DO Work Phone: [facility] 05-27-2025 10:08-0400 Systolic blood pressure 126 mm[Hg] Harry Ayleen DO Work Phone: [facility] 12-12-2024 14:52-0500 Body mass index (BMI) [Ratio] 39.33 kg/m2 Alyssa Cimarron PA Work Phone: [facility] 12-12-2024 14:52-0500 Body weight 113.91 kg Alyssa Cimarron PA Work Phone: [facility] 12-12-2024 14:52-0500 Diastolic blood pressure 70 mm[Hg] Alyssa Cimarron PA Work Phone: [facility] 12-12-2024 14:52-0500 Systolic blood pressure 114 mm[Hg] Alyssa Cimarron PA Work Phone: [facility] 11-15-2024 13:21-0500 Body mass index (BMI) [Ratio] 38.86 kg/m2 Alyssa Cimarron PA Work Phone: [facility] 11-15-2024 13:21-0500 Body weight 112.55 kg Alsysa Cimarron PA Work Phone: [facility] 11-15-2024 13:21-0500 Diastolic blood pressure 78 mm[Hg] Alyssa Beni PA Work Phone: [facility] 11-15-2024 13:21-0500 Systolic blood pressure 120 mm[Hg] Alyssa Beni PA Work Phone: [facility] 11-08-2024 11:24-0500 Body mass index (BMI) [Ratio] 41.04 kg/m2 Harry Ayleen DO Work Phone: [facility] 11-08-2024 11:24-0500 Body weight 118.84 kg Harry Ayleen DO Work Phone: [facility] 11-08-2024 11:24-0500 Diastolic blood pressure 72 mm[Hg] Harry Ayleen DO Work Phone: [facility] 11-08-2024 11:24-0500 Systolic blood pressure 122 mm[Hg] Harry Ayleen DO Work Phone: [facility] 10-31-2024 13:20-0500 Body mass index (BMI) [Ratio] 41 kg/m2 Alyssa Pretty PA Work Phone: [facility] 10-31-2024 13:20-0500 Body weight 118.75 kg Alyssa Beni PA Work Phone: [facility] 10-31-2024 13:20-0500 Diastolic blood pressure 76 mm[Hg] Alyssa Cimarron PA Work Phone: [facility] 10-31-2024 13:20-0500 Systolic blood pressure 124 mm[Hg] Alyssa Cimarron PA Work Phone: [facility] 10-22-2024 14:14-0500 Body mass index (BMI) [Ratio] 41.25 kg/m2 Harry Ayleen DO Work Phone: [facility] 10-22-2024 14:14-0500 Body weight 119.48 kg Harry Ayleen DO Work Phone: [facility] 10-22-2024 14:14-0500 Diastolic blood pressure 60 mm[Hg] Harry Ayleen DO Work Phone: [facility] 10-22-2024 14:14-0500 Systolic blood pressure 100 mm[Hg] Harry Ayleen DO Work Phone: [facility] 10-15-2024 14:53-0500 Body mass index (BMI) [Ratio] 41.21 kg/m2 Harry Ayleen DO Work Phone: [facility] 10-15-2024 14:53-0500 Body weight 119.35 kg Harry Ayleen DO Work Phone: [facility] 10-15-2024 14:53-0500 Diastolic blood pressure 72 mm[Hg] Harry Ayleen DO Work Phone: [facility] 10-15-2024 14:53-0500 Systolic blood pressure 114 mm[Hg] Harry Ayleen DO Work Phone: [facility] 09-25-2024 14:03-0500 Body mass index (BMI) [Ratio] 40.43 kg/m2 Alyssa ISSA Work Phone: [facility] 09-25-2024 14:03-0500 Body weight 117.08 kg Alyssa ISSA Work Phone: [facility] 09-25-2024 14:03-0500 Diastolic blood pressure 68 mm[Hg] Alyssa ISSA Work Phone: [facility] 09-25-2024 14:03-0500 Systolic blood pressure 118 mm[Hg] Alyssa ISSA Work Phone: [facility] 09-11-2024 10:46-0500 Body mass index (BMI) [Ratio] 40.53 kg/m2 Harry Ayleen DO Work Phone: [facility] 09-11-2024 10:46-0500 Body weight 117.39 kg Harry Ayleen DO Work Phone: [facility] 09-11-2024 10:46-0500 Diastolic blood pressure 70 mm[Hg] Harry Ayleen DO Work Phone: [facility] 09-11-2024 10:46-0500 Systolic blood pressure 112 mm[Hg] Harry Ayleen DO Work Phone: [facility] 08-28-2024 10:28-0500 Body mass index (BMI) [Ratio] 41.16 kg/m2 Alyssa ISAS Work Phone: [facility] 08-28-2024 10:28-0500 Body weight 119.2 kg Alyssa Pretty PA Work Phone: [facility] 08-28-2024 10:28-0500 Diastolic blood pressure 72 mm[Hg] Alyssa Pretty PA Work Phone: [facility] 08-28-2024 10:28-0500 Systolic blood pressure 114 mm[Hg] Alyssa Pretty PA Work Phone: [facility] 07-30-2024 09:39-0400 Body mass index (BMI) [Ratio] 40.41 kg/m2 Harry Ayleen DO Work Phone: [facility] 07-30-2024 09:39-0400 Body weight 117.03 kg Harry Ayleen DO Work Phone: [facility] 07-30-2024 09:39-0400 Diastolic blood pressure 68 mm[Hg] Harry Ayleen DO Work Phone: [facility] 07-30-2024 09:39-0400 Systolic blood pressure 112 mm[Hg] Harry Ayleen DO Work Phone: [facility] 07-04-2024 11:36-0400 Body height 170.2 cm Yimi Furlong DO Work Phone: [facility] 07-04-2024 11:36-0400 Body mass index (BMI) [Ratio] 39.28 kg/m2 Yimi Furlong DO Work Phone: [facility] 07-04-2024 11:36-0400 Body temperature 98.1 [degF] Yimi Furlong DO Work Phone: [facility] 07-04-2024 11:36-0400 Body weight 113.76 kg Yimi Furlong DO Work Phone: [facility] 07-04-2024 11:36-0400 Diastolic blood pressure 62 mm[Hg] Yimi Furlong DO Work Phone: [facility] 07-04-2024 11:36-0400 Heart rate 85 /min Yimi Oharalong DO Work Phone: [facility] 07-04-2024 11:36-0400 SaO2% (BldA) [Mass fraction] 97 % Yimi Oharalong DO Work Phone: [facility] 07-04-2024 11:36-0400 Systolic blood pressure 110 mm[Hg] Yimi Oharalong DO Work Phone: [facility] 06-28-2024 15:06-0400 Body mass index (BMI) [Ratio] 39.39 kg/m2 Alyssa ISSA Work Phone: [facility] 06-28-2024 15:06-0400 Body weight 114.08 kg Alyssa ISSA Work Phone: [facility] 06-28-2024 15:06-0400 Diastolic blood pressure 78 mm[Hg] Alyssa ISSA Work Phone: [facility] 06-28-2024 15:06-0400 Systolic blood pressure 110 mm[Hg] Alyssa ISSA Work Phone: [facility] 05-29-2024 11:14-0400 Body mass index (BMI) [Ratio] 39 kg/m2 Harry Ayleen DO Work Phone: [facility] 05-29-2024 11:14-0400 Body weight 112.95 kg Harry Ayleen DO Work Phone: [facility] 05-29-2024 11:14-0400 Diastolic blood pressure 60 mm[Hg] Harry Ayleen DO Work Phone: [facility] 05-29-2024 11:14-0400 Systolic blood pressure 120 mm[Hg] Harry Ayleen DO Work Phone: [facility] 02-17-2024 09:25-0400 Body height 170.2 cm Nivia HERNANDEZ Work Phone: [facility] 02-17-2024 09:25-0400 Body mass index (BMI) [Ratio] 38.17 kg/m2 Nivia Colón FENCE INSTALLER HELPER-TRANSITION MANAGER Work Phone: [facility] 02-17-2024 09:25-0400 Body temperature 98.29 [degF] Nivia Colón FENCE INSTALLER HELPER-TRANSITION MANAGER Work Phone: [facility] 02-17-2024 09:25-0400 Body weight 110.54 kg Nivia Colón FENCE INSTALLER HELPER-TRANSITION MANAGER Work Phone: [facility] 02-17-2024 09:25-0400 Diastolic blood pressure 72 mm[Hg] Nivia Colón FENCE INSTALLER HELPER-TRANSITION MANAGER Work Phone: [facility] 02-17-2024 09:25-0400 Heart rate 74 /min Nivia Colón FENCE INSTALLER HELPER-TRANSITION MANAGER Work Phone: [facility] 02-17-2024 09:25-0400 Respiratory rate 18 /min Nivia Colón FENCE INSTALLER HELPER-TRANSITION MANAGER Work Phone: [facility] 02-17-2024 09:25-0400 SaO2% (BldA) [Mass fraction] 97 % Nivia Colón FENCE INSTALLER HELPER-TRANSITION MANAGER Work Phone: [facility] 02-17-2024 09:25-0400 Systolic blood pressure 104 mm[Hg] Nivia Colón FENCE INSTALLER HELPER-TRANSITION MANAGER Work Phone: [facility] 12-20-2023 15:22-0400 Body height 170.2 cm Summer Davalos FENCE INSTALLER HELPER-HANDICRAFTS TEACHER Work Phone: [facility] 12-20-2023 15:22-0400 Body mass index (BMI) [Ratio] 38.28 kg/m2 Summer Davalos FENCE INSTALLER HELPER-HANDICRAFTS TEACHER Work Phone: [facility] 12-20-2023 15:22-0400 Body temperature 98.29 [degF] Summer Davalos FENCE INSTALLER HELPER-HANDICRAFTS TEACHER Work Phone: [facility] 12-20-2023 15:22-0400 Body weight 110.86 kg Summer Davalos FENCE INSTALLER HELPER-HANDICRAFTS TEACHER Work Phone: [facility] 12-20-2023 15:22-0400 Diastolic blood pressure 80 mm[Hg] Summer Davalos FENCE INSTALLER HELPER-HANDICRAFTS TEACHER [facility] 12-20-2023 15:22-0400 Heart rate 82 /min Summer Davalos FENCE INSTALLER HELPER-HANDICRAFTS TEACHER [facility] Phone[facility] 12-20-2023 15:22-0400 Respiratory rate 18 /min Summer Davalos FENCE INSTALLER HELPER-HANDICRAFTS TEACHER Work Phone: [facility] 12-20-2023 15:22-0400 SaO2% (BldA) [Mass fraction] 97 % Summer Davalos FENCE INSTALLER HELPER-HANDICRAFTS TEACHER Work Phone: [facility] 12-20-2023 15:22-0400 Systolic blood pressure 100 mm[Hg] Summer Davalos FENCE INSTALLER HELPER-HANDICRAFTS TEACHER Work Phone: [facility] [employer] Encounters Encounter Date Encounter Type Care Provider Facility Start: 07-04-2025 End: 07-04-2025 Telephone encounter Brittney Rome CMA [facility] Comment on above: Appointment Start: 06-28-2025 End: 06-28-2025 Emergency department patient visit NIVIA COLÓN [facility] Start: 06-27-2025 End: 07-04-2025 Clinisync Result Encounter Harry Ayleen DO Work Phone: [facility] Unsolicited Start: 06-27-2025 End: 06-28-2025 External Result Encounter Harry Ayleen DO Work Phone: [facility] Unsolicited Start: 06-27-2025 End: 07-04-2025 External Result Encounter Harry Ayleen DO Work Phone: [facility] Unsolicited Start: 06-27-2025 End: 06-27-2025 Patient encounter procedure Harry Ayleen DO Work Phone: [facility] Work Phone: Start: 06-27-2025 End: 06-27-2025 Periodic preventive med est patient 18-39 yrs Harry Ayleen DO Work Phone: [facility] Comment on above: Pre-op examination; Request for sterilization; Well woman exam with routine gynecological exam; Exposure to STD; Vaginal discharge; Upper back pain Start: 06-27-2025 End: 06-27-2025 Preprocedural examination done Harry Ayleen DO Work Phone: [facility] Start: 06-27-2025 End: 06-27-2025 ambulatory HARRY AYLEEN Not Available Start: 05-27-2025 End: 05-27-2025 Bamboo flowsheet Harry Ayleen DO Work Phone: [facility] [place] Start: 05-27-2025 End: 05-27-2025 Bamboo flowsheet Harry Ayleen DO Work Phone: [facility] Start: 05-27-2025 End: 05-27-2025 Office outpatient visit 15 minutes Harry Ayleen DO Work Phone: [facility] Comment on above: Sterilization consul t Start: 05-27-2025 End: 05-27-2025 ambulatory HARRY AYLEEN Not Available Start: 04-04-2025 End: 04-04-2025 Emergency department patient visit [facility] Start: 02-08-2025 End: 02-08-2025 Emergency department patient visit [facility] Start: 12-17-2024 End: 12-17-2024 ambulatory ALYSSA PRETTY Not Available Start: 12-12-2024 End: 12-12-2024 Postop follow up visit related to original px Alyssa Prtety PA Work Phone: [facility] Comment on above: Postoperative follow -up Start: 12-12-2024 End: 12-12-2024 ambulatory ALYSSA PRETTY Not Available Start: 12-12-2024 End: 12-12-2024 Bamboo flowsheet Alyssa Beni PA Work Phone: [facility] Start: 12-12-2024 End: 12-12-2024 Bamboo flowsheet Alyssa Pretty PA Work Phone: [facility] Start: 11-15-2024 End: 11-15-2024 Bamboo flowsheet Alyssa Pretty PA Work Phone: [facility] Start: 11-15-2024 End: 11-15-2024 Bamboo flowsheet Alyssa Pretty PA Work Phone: [facility] Start: 11-15-2024 End: 11-15-2024 Postop follow up visit related to original px Alyssa Cimarron PA Work Phone: [facility] Comment on above: Postoperative follow -up (Primary Dx) Start: 11-15-2024 End: 11-15-2024 ambulatory ALYSSA PRETTY Not Available Start: 11-10-2024 End: 11-10-2024 Clinisync Result Encounter Harry Ayleen DO Work Phone: [facility] Unsolicited Start: 11-10-2024 End: 11-10-2024 Clinisync Result Encounter Harry Ayleen DO Work Phone: [facility] Unsolicited Start: 11-09-2024 End: 11-09-2024 Clinisync Result Encounter Harry Ayleen DO Work Phone: [facility] Unsolicited Start: 11-09-2024 End: 11-09-2024 Clinisync Result Encounter Harry Ayleen DO Work Phone: [facility] Unsolicited Start: 11-08-2024 End: 11-08-2024 Bamboo flowsheet Harry Ayleen DO Work Phone: [facility] Start: 11-08-2024 End: 11-08-2024 Bamboo flowsheet Harry Ayleen DO Work Phone: [facility] Start: 11-08-2024 End: 11-08-2024 ambulatory HARRY AYLEEN Not Available Start: 11-08-2024 End: 11-08-2024 flow sheet Harry Ayleen DO Work Phone: [facility] [...] Available Start: 10-22-2024 End: 10-22-2024 Bamboo flowsheet Harry Ayleen DO Work Phone: [facility] Start: 10-22-2024 End: 10-27-2024 Bamboo flowsheet Harry Ayleen DO Work Phone: [facility] Start: 10-22-2024 End: 10-27-2024 Clinisync Result Encounter Harry Ayleen DO Work Phone: [facility] Unsolicited Start: 10-22-2024 End: 10-22-2024 flow sheet Harry Ayleen DO Work Phone: [facility] Comment on above: 36 weeks gestation o f ; Third trimester Start: 10-22-2024 End: 10-22-2024 ambulatory HARRY AYLEEN Not Available Start: 10-15-2024 End: 10-15-2024 flow sheet Harry Ayleen DO Work Phone: [facility] Comment on above: Third trimester preg mau; 35 weeks gestation of Start: 10-15-2024 End: 10-15-2024 ambulatory HARRY AYLEEN Not Available Start: 10-15-2024 End: 10-15-2024 Bamboo flowsheet Harry Ayleen DO Work Phone: [facility] Start: 10-15-2024 End: 10-15-2024 Bamboo flowsheet Harry Ayleen DO Work Phone: [facility] [...] Available Start: 09-11-2024 End: 09-11-2024 Bamboo flowsheet Harry Ayleen DO Work Phone: [facility] Start: 09-11-2024 End: 09-11-2024 Bamboo flowsheet Harry Ayleen DO Work Phone: [facility] Start: 09-11-2024 End: 09-11-2024 flow sheet Harry Ayleen DO Work Phone: [facility] Comment on above: Third trimester preg mau; 30 weeks gestation of Start: 09-11-2024 End: 09-11-2024 ambulatory HARRY AYLEEN Not Available Start: 08-28-2024 End: 08-28-2024 [...] Available Start: 07-30-2024 End: 07-30-2024 Bamboo flowsheet Harry Ayleen DO Work Phone: [facility] Start: 07-30-2024 End: 07-30-2024 Bamboo flowsheet Harry Ayleen DO Work Phone: [facility] Start: 07-30-2024 End: 07-30-2024 Office outpatient visit 15 minutes Harry Ayleen DO Work Phone: [facility] Comment on above: 24 weeks gestation o f ; Diabetes mellitus screening Start: 07-30-2024 End: 07-30-2024 ambulatory HARRY AYLEEN Not Available Start: 07-04-2024 End: 07-04-2024 Office outpatient visit 15 minutes [facility] DO Work Phone: [facility] Comment on above: Nasal congestion (Pr imary Dx); Viral URI Start: 07-04-2024 End: 07-04-2024 ambulatory [facility] Start: 06-28-2024 End: 06-28-2024 Office outpatient visit 15 minutes Alyssa ISSA Work Phone: [facility] Comment on above: Second trimester pre gnancy Start: 06-28-2024 End: 06-28-2024 Bamboo flowsheet Alyssa ISSA Work Phone: [facility] Start: 06-28-2024 End: 06-28-2024 Bamboo flowsheet Alyssa ISSA Work Phone: [facility] Start: 05-29-2024 End: 05-29-2024 Bamboo flowsheet Harry Ayleen DO Work Phone: [facility] Start: 05-29-2024 End: 05-31-2024 Bamboo flowsheet Harry Ayleen DO Work Phone: [facility] Start: 05-29-2024 End: 05-31-2024 Clinisync Result Encounter Harry Ayleen DO Work Phone: [facility] Unsolicited Start: 05-29-2024 End: 05-30-2024 External Result Encounter Harry Ayleen DO Work Phone: [facility] Unsolicited Start: 05-29-2024 End: 05-29-2024 Patient encounter procedure Harry Ayleen DO Work Phone: [facility] Start: 05-29-2024 End: 05-29-2024 Periodic preventive med est patient 18-39 yrs Harry Ayleen DO Work Phone: [facility] Comment on above: 15 weeks gestation o f ; Screening, , for anatomic survey; Well woman exam with routine gynecological exam; Exposure to STD; Vaginal discharge Start: 02-17-2024 End: 02-18-2024 ambulatory [facility] Start: 02-17-2024 End: 02-17-2024 Office outpatient visit 15 minutes [facility] FENCE INSTALLER HELPER-TRANSITION MANAGER [facility] Comment on above: Miscarriage (Primary Dx) Start: 02-17-2024 End: 02-17-2024 ambulatory [facility] Start: 12-20-2023 End: 12-20-2023 Office outpatient visit 15 minutes Summer Davalos FENCE INSTALLER HELPER-HANDICRAFTS TEACHER Work Phone: [facility] Comment on above: PTSD (post-traumatic stress disorder) (Primary Dx); General counseling and advice for contraceptive management; Class 2 obesity due to excess calories without serious comorbidity with body mass index (BMI) of 37.0 to 37.9 in adult Start: 12-20-2023 End: 12-20-2023 ambulatory [facility] Start: 11-21-2023 Clinisync Result Encounter Harry Ayleen DO Work Phone: [facility] Unsolicited Start: 11-21-2023 Clinisync Result Encounter Harry Ayleen DO Work Phone: [facility] Unsolicited Start: 01-19-2023 End: 01-19-[address] [facility] Facility:[facility] Start: 11-16-2022 End: 11-16-[address] BEATA THOMSON . Facility:[facility] Start: 05-07-2022 End: 05-07-[address] SUKHDEEP HERNÁNDEZ . Facility: Procedures Date Procedure Procedure Detail Performing Clinician Start: 06-27-2025 RECURRENT VAGINITIS (HTRX) Harry Ayleen DO Work Phone: Start: 06-27-2025 IGP,APTIMA HPV,AGE GDLN Harry Ayleen DO Work Phone: Start: 11-10-2024 ALL CBC WITH AUTO DIFF Harry Ayleen DO Work Phone: Start: 11-09-2024 ALL CBC WITH AUTO DIFF Harry Yaleen DO Work Phone: Start: 11-08-2024 Urnls dip stick/tabl et rgnt non-auto w/o micrscp Harry Ayleen DO Work Phone: Start: 10-31-2024 Urnls dip stick/tabl et rgnt non-auto w/o micrscp Alyssa Pretty PA Work Phone: Start: 10-22-2024 Urnls dip stick/tabl et rgnt non-auto w/o micrscp Harry Ayleen DO Work Phone: Start: 10-22-2024 ALL MISCELLANEOUS TEST Harry Ayleen DO Work Phone: Start: 10-15-2024 Urnls dip stick/tabl et rgnt non-auto w/o micrscp Harry Ayleen DO Work Phone: Start: 09-25-2024 Urnls dip stick/tabl et rgnt non-auto w/o micrscp Harry Ayleen DO Work Phone: Start: 09-11-2024 Urnls dip stick/tabl et rgnt non-auto w/o micrscp Harry Ayleen DO Work Phone: Start: 08-28-2024 Urnls dip stick/tabl et rgnt non-auto w/o micrscp Alyssa ISSA Work Phone: Start: 07-30-2024 Urnls dip stick/tabl et rgnt non-auto w/o micrscp Harry Ayleen DO Work Phone: Start: 07-04-2024 POCT INFLUENZA A/INF LUENZA B/SARS-COV-2 VERITOR Yimi Barragan DO Work Phone: Start: 07-04-2024 Adult depression scr eening assessment Yimi Barragan DO Work Phone: Start: 06-28-2024 Urnls dip stick/tabl et rgnt non-auto w/o micrscp Alyssa ISSA Work Phone: Start: 05-29-2024 AFP, SERUM, OPEN SPI NA BIFIDA Harry Ayleen DO Work Phone: Start: 05-29-2024 Urnls dip stick/tabl et rgnt non-auto w/o micrscp Harry Ayleen DO Work Phone: Start: 05-29-2024 Microscopic observat ion [Identifier] in Cervix by Cyto stain Brittney Rome TOBACCO FEEDER CATCHER Start: 05-29-2024 Cytp cerv/vag auto t hin layer prep mnl screen Harry Ayleen DO Work Phone: Start: 05-29-2024 URETHRITIS/DISCHARGE PLUS VAGINITIS (HTRX) Harry Ayleen DO Work Phone: Start: 02-17-2024 Adult depression scr eening assessment Nivia Colón FENCE INSTALLER HELPER-[employer] Work Phone: Start: 12-20-2023 Adult depression scr eening assessment Summer Davalos FENCE INSTALLER HELPER-HANDICRAFTS TEACHER Work Phone: Start: 11-21-2023 [facility] PREG QUANT HCG Core y Ayleen DO Work Phone: Start: 11-16-2022 Microscopic observat ion [Identifier] in Cervix by Cyto stain Summer Davalos FENCE INSTALLER HELPER-[facility] Work Phone: Plan of Treatment Date Care Activity Detail Author Start: 04-04-2035 DTaP,Tdap and Td Vaccines (8 - Td or Tdap) DTaP,Tdap and Td Vaccines (8 - Td or Tdap) [facility] Start: 11-13-2029 DTaP,Tdap and Td Vaccines (7 - Td or Tdap) DTaP,Tdap and Td Vaccines (7 - Td or Tdap) [facility] Start: 05-29-2027 Screening for malign ant neoplasm of cervix Pap Smear [facility] Start: 06-28-2026 Adult BMI Screening Adult BMI Screen ing [facility] Start: 06-28-2026 Tobacco Screening Tobacco Screening [facility] Start: 11-16-2025 Screening for malign ant neoplasm of cervix Pap Smear [facility] Start: 08-12-2025 End: 08-12-2025 Patient encounter procedure 08/12/2025 8:30 AM EST Office Visit [facility] [address] [facility] [place] [phone] Alyssa Pretty PA [address] [place] [address] ADRIAN MORGAN Start: 07-04-2025 Adult BMI Screening Adult BMI Screen ing [facility] Start: 07-04-2025 Depression Screening Depression Scre ening [facility] Start: 07-04-2025 Tobacco Screening Tobacco Screening [facility] Start: 06-27-2025 End: 06-27-2025 Patient encounter procedure 06/27/2025 10:40 AM EDT Procedure Visit [facility] [address] [place] [phone] Harry Abbasi, DO [address] [place] [address] [facility] Start: 06-10-2025 Influenza vaccination Influenza Vacc ine (#1) [facility] Start: 05-27-2025 End: 05-27-2025 Patient encounter procedure 05/27/2025 10:10 AM EDT Office Visit [facility] [address] [place] [phone] Harry Abbasi, DO [address] [place] [address] Arrived ADRIAN MORGAN Comment on above: Arrived Start: 02-16-2025 Adult BMI Screening Adult BMI Screen ing [facility] Start: 02-16-2025 Depression Screening Depression Scre ening [facility] Start: 02-16-2025 Tobacco Screening Tobacco Screening [facility] Start: 12-20-2024 End: 12-20-2024 ambulatory 12/20/2024 9:40 AM EDT Visit [facility] [address] [facility] [place] [phone] Alyssa Pretty PA [address] [place] [address] [facility] Start: 12-19-2024 Adult BMI Screening Adult BMI Screen ing [facility] Start: 12-19-2024 Depression Screening Depression Scre ening [facility] Start: 12-19-2024 Tobacco Screening [facility] Start: 12-12-2024 End: 12-12-2024 Patient encounter procedure 12/12/2024 2:20 PM EST Office Visit [facility] [address] [facility] [place] [phone] Alyssa Pretty, PA [address] [place] [address] Arrived [facility] Comment on above: Arrived Start: 11-15-2024 End: 11-15-2024 Patient encounter procedure 11/15/2024 3:30 PM EST Office Visit [facility] [address] [place] [phone] Alyssa Pretty, PA [address] [place] [address] [facility] Start: 11-15-2024 End: 11-15-2024 Patient encounter procedure 11/15/2024 1:50 PM EST Office Visit [facility] [address] [place] [phone] Alyssa Pretty, PA [address] [place] [address] Arrived [facility] Comment on above: Arrived Start: 11-08-2024 End: 11-08-2024 Patient encounter procedure 11/08/2024 11:10 AM EST Routine [facility] [address] [place] [phone] Harry Abbasi, [address] [place] [address] [facility] Start: 10-31-2024 End: 10-31-2024 [...] Up Plan [facility] Start: 09-11-2024 End: 09-11-2024 Patient encounter procedure [facility] Comment on above: Arrived Start: 09-11-2024 End: 09-11-2024 Professional / ancillary services management 09/11/2024 10:00 AM EST Ancillary Procedure [facility] [address] [place] [address] [facility] Start: 08-28-2024 End: 08-28-2025 US for US OB SCAN FOR GROWTH Imaging Routine size inconsistent with dates Expected: 08/28/2024 (Approximate), Expires: 08/28/2025 [facility] Work Phone: Comment on above: Expected: 08/28/2024 (Approximate), Expires: 08/28/2025 Start: 08-28-2024 End: 08-28-2024 Patient encounter procedure [facility] Comment on above: Arrived Start: 07-30-2024 End: 07-30-2025 CBC panel - Blood by Automated count CBC Lab Routine Diabetes mellitus screening Expected: 07/30/2024 (Approximate), Expires: 07/30/2025 [facility] Sr.Pago Work Phone: Comment on above: Expected: 07/30/2024 [...] AM EDT Routine [facility] [address] [place] [phone] Harry Abbasi DO [address] [place] [address] Arrived [facility] Comment on above: Arrived Start: 07-02-2024 End: 07-02-2024 Patient encounter procedure [facility] Start: 07-02-2024 End: 07-02-2024 Professional / ancillary services management 07/02/2024 8:30 AM EDT Ancillary Procedure [facility] [address] [place] [phone] [facility] Start: 06-28-2024 End: 06-28-2024 Patient encounter procedure 06/28/2024 3:00 PM EDT Routine [facility] [address] [place] [phone] Alyssa Pretty PA [address] [place] [address] Arrived [facility] Comment on above: Arrived Start: 06-10-2024 Influenza vaccination Influenza Vacc ine (#1) [facility] Start: 05-29-2024 End: 07-29-2024 Alpha fetoprotein, maternal Alpha fetoprotein, maternal Lab Routine 15 weeks gestation of Expected: 05/29/2024 (Approximate), Expires: 07/29/2024 [facility] Comment on above: Expected: 05/29/2024 (Approximate), Expires: 07/29/2024 Start: 05-29-2024 End: 05-29-2025 US for US OB ANATOMY SINGLE W US OB CERVICAL LENGTH Imaging Routine Screening, , for anatomic survey Expected: 05/29/2024 (Approximate), Expires: 05/29/2025 [facility] Comment on above: Expected: 05/29/2024 (Approximate), Expires: 05/29/2025 Start: 05-29-2024 End: 05-29-2024 Patient encounter procedure 05/29/2024 10:50 AM EDT Routine [facility] [address] [place] [phone] Harry Abbasi DO [address] [place] [address] Arrived [facility] Comment on above: Arrived Start: 06-10-2023 Influenza vaccination Influenza Vacc ine (#1) [facility] CHLAMYDIA TRACHOMATI S (GENITO/STI) CHLAMYDIA TRACHOMATIS (GENITO/STI) Lab Routine Exposure to STD Ordered: 05/29/2024 [facility] Comment on above: Ordered: 05/29/2024 CHLAMYDIA TRACHOMATI S (GENITO/STI) CHLAMYDIA TRACHOMATIS (GENITO/STI) Lab Routine Exposure to STD Ordered: 06/27/2025 [facility] Comment on above: Ordered: 06/27/2025 Cytology Cervical or vaginal smear or scraping study Pap Smear Pathology and Cytology Routine Well woman exam with routine gynecological exam Ordered: 05/29/2024 [facility] Work Phone: Comment on above: Ordered: 05/29/2024 Cytology Cervical or vaginal smear or scraping study Pap Smear Pathology and Cytology Routine Well woman exam with routine gynecological exam Ordered: 06/27/2025 [facility] Work Phone: Comment on above: Ordered: 06/27/2025 Neisseria gonorrhoea e DNA [Presence] in Unspecified specimen by RADHA with probe detection Neisseria gonorrhea DNA probe, direct Lab Routine Exposure to STD Ordered: 05/29/2024 [facility] Comment on above: Ordered: 05/29/2024 Neisseria gonorrhoea e DNA [Presence] in Unspecified specimen by RADHA with probe detection Neisseria gonorrhea DNA probe, direct Lab Routine Exposure to STD Ordered: 06/27/2025 [facility] Comment on above: Ordered: 06/27/2025 SURESWAB(R) ADVANCED VAGINITIS PLUS, TMA SURESWAB(R) ADVANCED VAGINITIS PLUS, TMA Pathology and Cytology Routine Vaginal discharge Ordered: 05/29/2024 [facility] Comment on above: Ordered: 05/29/2024 SURESWAB(R) ADVANCED VAGINITIS PLUS, TMA SURESWAB(R) ADVANCED VAGINITIS PLUS, TMA Pathology and Cytology Routine Vaginal discharge Ordered: 06/27/2025 [facility] Comment on above: Ordered: 06/27/2025 Immunizations Immunization Date Immunization Notes Care Provider Agnieszka dubosejose f 04-04-2025 tetanus toxoid, redu clifford diphtheria toxoid, and acellular pertussis vaccine, adsorbed Brittney Rome TOBACCO FEEDER CATCHER [facility] 11-13-2019 tetanus toxoid, redu clifford diphtheria toxoid, and acellular pertussis vaccine, adsorbed Summer Davalos FENCE INSTALLER HELPER-HANDICRAFTS TEACHER Work Phone: [facility] 01-22-2014 diphtheria, tetanus toxoids and acellular pertussis vaccine, unspecified formulation Summer Davalos FENCE INSTALLER HELPER-HANDICRAFTS TEACHER Work Phone: [facility] 06-22-2004 diphtheria, tetanus toxoids and acellular pertussis vaccine Summer Davalos FENCE INSTALLER HELPER-HANDICRAFTS TEACHER Work Phone: [facility] Work Phone: 06-22-2004 haemophilus influenz ae type b vaccine, PRP-T conjugate Summer Davalos [facility] Work Phone: [facility] 06-22-2004 pneumococcal conjuga te vaccine, 7 valent Summer Davalos [employer]ENCE INST[employer]ER [facility] Work Phone: [facility] 12-20-2003 DTaP-hepatitis B and poliovirus vaccine Summer Davalos FENCE INSTALLER HELPER-HANDICRAFTS TEACHER Work Phone: [facility] 12-20-2003 haemophilus influenz ae type b vaccine, PRP-T conjugate Summer Davalos [facility] Work Phone: [facility] 12-20-2003 measles, mumps and rubella virus vaccine Summer Davalos FENCE INSTALLER HELPER-HANDICRA[employer] TEACHER Work Phone: [facility] 12-20-2003 varicella virus vaccine Summer Davalos FENCE INSTALLER HELPER-HANDICRAFTS TEACHER Work Phone: [facility] 11-11-2003 DTaP-hepatitis B and poliovirus vaccine Summer Davalos FENCE INSTALLER HELPER-HANDICRA[employer] TEACHER Work Phone: [facility] 11-11-2003 haemophilus influenz ae type b vaccine, PRP-T conjugate Summer Davalos FENCE INSTALLER HELPER[employer]HANDICRAFT[employer] TEACHER Work Phone: [facility] 11-11-2003 pneumococcal conjuga te vaccine, 7 valent Summer Davalos FENCE INSTALLER HELPER-HANDICRAFTS TEACHER Work Phone: [facility] 05-31-2003 DTaP-hepatitis B and poliovirus vaccine Summer Davalos FENCE INSTALLER HELPER-HANDICRA[employer] TEACHER Work Phone: [facility] 05-31-2003 haemophilus influenz ae type b vaccine, PRP-T conjugate Summer Davalos FENCE INSTALLER HEL[employer]ICRA[employer] TE[employer] Work Phone: [facility] 05-31-2003 pneumococcal conjuga te vaccine, 7 valent Summer Davalos FENCE INSTALLER HELPER[employer]HANDICRAFTS TEACHER Work Phone: [facility] 2002 hepatitis B vaccine, pediatric or pediatric/adolescent dosage Summer Davalos FENCE INSTALLER HELPER-HANDICRAFTS TEACHER Work Phone: [facility] Payers Date Payer Category Payer Private Health Insurance [facility] Member Subscriber Plan / Payer (Effective 2024-Present) Name: Ash Martinez Relation to Subscriber: Self Name: Ash Martinez Payer ID: Not on file Group ID: Not on file Type: Not on file Address: [place] [id number] 2024 Unknown [id number] 2022 Medicaid (Managed Care) [employer] [id number] 2018 Medicaid [id number] 2018 Medicaid HMO [employer] [id number] 2002 Unknown [id number] 2.16840.1.696206.3.579.2. 1286 2002 Unknown [id number] 2.16.840.1.115696.3.579.2. 1286 2002 Unknown [id number] 2.16840.1.484155.3.579.2. 1286 2002 Unknown [id number] 2.16840.1.076165.3.579.2. 1286 2002 Unknown [id number] 2.16840.1.212553.3.579.2. 1259 2002 Unknown [id number] 2.16.840.1.238721.3.579.2. 1259 2002 Unknown [id number] 2.16.840.1.049748.3.579.2. 1259 2002 Unknown [id number] 2.16.840.1.402349.3.579.2. 1258 2002 Unknown [id number] 2.16.840.1.344736.3.579.2. 1258 2002 Unknown [id number] 2.16.840.1.354739.3.579.2. 1258 2002 Unknown [id number] 2.16.840.1.642487.3.579.2. 1258 2002 Unknown [id number] 2.16.840.1.064392.3.579.2. 1258 2002 Unknown [id number] 2.16.840.1.988590.3.579.2. 1258 2002 Unknown [id number] 2.16.840.1.944550.3.579.2. 1258 2002 Unknown [id number] 2.16.840.1.657986.3.579.2. 1258 2002 Unknown [id number] 2.16.840.1.591612.3.579.2. 1258 2002 Unknown [id number] 2.16.840.1.928319.3.579.2. 1258 2002 Unknown [id number] 2.16.840.1.108805.3.579.2. 1285 2002 Unknown [id number] 2.16.840.1.676722.3.579.2. 128 2002 Unknown [id number] 2.16.840.1.485933.3.579.2. 1286 1982 Unknown [id number] 2.16.840.1.747549.3.579.2. 593 1982 Unknown [id number] 2.16.840.1.373289.3.579.2. 593 1982 Unknown [id number] 2.16.840.1.075677.3.579.2. 593 1959 Unknown [id number] 1959 Unknown [id number] Social History Date Type Detail Facility Start: 05-19-2023 Tobacco smoking status NHIS Tobacco smoking consumption unknown [facility] Start: 05-19-2023 Tobacco use and exposure User of smokeless tobacco [facility] Start: 11-18-2023 End: 06-27-2025 Alcohol intake Lifetime non-drinker (finding) [facility] Start: 05-19-2023 End: 06-28-2024 History of Social function [facility] Start: 05-19-2023 End: 06-28-2024 Tobacco use panel [facility] Start: 2002 Sex Assigned At Not on file [facility] Start: 02-24-2024 [facility] Start: 2002 Sex assigned at Female [facility] Start: 01-23-2024 Gender identity Identifies as female gender (finding) [facility] Start: 01-23-2024 Sexual orientation Heterosexual (finding) [facility] Start: 01-15-2023 Tobacco smoking status ILIS Never smoked tobacco [facility] Start: 01-15-2023 Tobacco use and exposure Smokeless tobacco non-user [facility] Frequency of Alcohol Consumption Never [facility] Start: 05-15-2015 Sex Female (finding) [facility] Clinical Notes 12-20-2023 to 07-04-2025 Telephone Encounter - Brittney Rome [facility] - 07/04/2025 9:30 AM EDTTelephone Encounter - Brittney Rome [facility] - 07/04/2025 9:30 AM EDNury Santillan - 06/27/2025 10:40 AM EDT Note Date & Type Note Facility 07-04-2025 Miscellaneous Notes Formattin g of this note might be different from the original. Care Coordination Outreach performed to coordinate overdue appointments, testing, and/or follow-up care: Yes Audit/Outreach Date: July 04, 2025 Reason: Well Person Method: Telephone and MyChart Outreach Attempt: First Outcome: Left Message and Letter Sent Next PCP Appointment: N/A Tests/Referrals Pended: N/A Resources/Education Provided: Additional Comments: Left message for patient to contact office to schedule yearly wellness visit. Letter sent. documented in this encounter [facility] 07-04-2025 Telephone encount er Note Care Coordination Outreach performed to coordinate overdue appointments, testing, and/or follow-up care: Yes Audit/Outreach Date: July 04, 2025 Reason: Well Person Method: Telephone and MyChart Outreach Attempt: First Outcome: Left Message and Letter Sent Next PCP Appointment: N/A Tests/Referrals Pended: N/A Resources/Education Provided: Additional Comments: Left message for patient to contact office to schedule yearly wellness visit. Letter sent. [facility] 06-27-2025 History of Presen t illness Narrative Reason for Appointment: Patient ID: Lorie Martinez is a 24 y.o. female who presents for Pre-op Visit, Gynecologic Exam, and [facility] Women Visit Patient presents today for Pre Op/Annual appointment. Patient is scheduled to undergo [place] assisted Bilateral Laparoscopic Salpingectomy on 08-02-[address] Abbasi at [facility]. MEDICATIONS Current Outpatient Medications Medication Instructions citalopram (CELEXA) 20 mg, Oral, Daily ibuprofen 800 mg, Every 8 hours ALLERGIES Allergies Allergen Reactions Ondansetron Rash PROBLEMS Active Ambulatory Problems Diagnosis Date Noted Anxiety with depression 09/25/2024 6 weeks follow-up ([facility]) 12/12/2024 Postoperative follow-up 12/12/2024 Resolved Ambulatory Problems Diagnosis Date Noted 32 weeks gestation of ([facility]) 09/25/2024 Third trimester ([facility]) 09/25/2024 36 weeks gestation of ([facility]) 10/22/2024 Past Medical History: Diagnosis Date ADHD [...] reviewed, and patient is to proceed to [facility]. Follow Up: Patient is to follow up between 1-2 weeks post operative/weight loss to assess proper healing and recovery from procedure. Documented by Pankaj Bloom LPN on behalf of: Harry Abbasi DO documented in this encounter [facility] 05-27-2025 History of Presen t illness Narrative Reason [...] Anxiety with depression 09/25/2024 6 weeks follow-up ([facility]) 12/12/2024 Postoperative follow-up 12/12/2024 Resolved Ambulatory Problems Diagnosis Date Noted 32 weeks gestation of ([facility]) 09/25/2024 Third trimester ([facility]) 09/25/2024 36 weeks gestation of ([facility]) 10/22/2024 Past Medical History: Diagnosis Date ADHD [...] nursing note reviewed. Exam conducted with a title [employer] kindergarten teacher present. Vitals: Estimated body mass index is [...] Nexplanon removal at post-op appointment. Documented by Pankaj Bloom LPN on behalf of: Harry Abbasi DO documented in this encounter [facility] 12-12-2024 History of Presen t illness Narrative Reason [...] Diagnosis Date ADHD (attention deficit hyperactivity disorder) ([facility]) HISTORY PAST MEDICAL HISTORY SOCIAL HISTORY Past Medical History: Diagnosis Date ADHD (attention deficit hyperactivity disorder) ([facility]) Social History Tobacco Use Smoking status: Unknown [...] scheduled for post next week Documented by Pankaj Bloom LPN on behalf of: MAEGAN Link documented in this encounter [facility] 11-15-2024 History of Presen t illness Narrative Reason [...] Diagnosis Date ADHD (attention deficit hyperactivity disorder) ([facility]) HISTORY PAST MEDICAL HISTORY SOCIAL HISTORY Past Medical History: Diagnosis Date ADHD (attention deficit hyperactivity disorder) ([facility]) Social History Tobacco Use Smoking status: [...] of: MAEGAN Link documented in this encounter [facility] 11-08-2024 History of Presen t illness Narrative Reason [...] Diagnosis Date ADHD (attention deficit hyperactivity disorder) ([facility]) HISTORY PAST MEDICAL HISTORY SOCIAL HISTORY Past Medical History: Diagnosis Date ADHD (attention deficit hyperactivity disorder) ([facility]) Social History Tobacco Use Smoking status: [...] nursing note reviewed. Exam conducted with a [employer] kindergarten teacher present. Vitals: Estimated body mass index is [...] 6 week post /post operative. Documented by Pankaj Bloom LPN on behalf of: Harry Abbasi DO documented in this encounter [facility] 10-31-2024 History of Presen t illness Narrative Reason [...] Diagnosis Date ADHD (attention deficit hyperactivity disorder) ([facility]) HISTORY PAST MEDICAL HISTORY SOCIAL HISTORY Past Medical History: Diagnosis Date ADHD (attention deficit hyperactivity disorder) ([facility]) Social History Tobacco Use Smoking status: [...] of: MAEGAN Link documented in this encounter [facility] 10-22-2024 History of Presen t illness Narrative Reason [...] Diagnosis Date ADHD (attention deficit hyperactivity disorder) ([facility]) HISTORY PAST MEDICAL HISTORY SOCIAL HISTORY Past Medical History: Diagnosis Date ADHD (attention deficit hyperactivity disorder) ([facility]) Social History Tobacco Use Smoking status: [...] week for routine OB appointment Documented by Pankaj Bloom LPN on behalf of: Harry Abbsai DO documented in this encounter [facility] 10-15-2024 History of Presen t illness Narrative Reason [...] Diagnosis Date ADHD (attention deficit hyperactivity disorder) ([facility]) HISTORY PAST MEDICAL HISTORY SOCIAL HISTORY [...] nursing note reviewed. Exam conducted with a title [employer] kindergarten teacher present. Vitals: Estimated body mass index is [...] week for routine OB appointment. Documented by Pankaj Bloom LPN on behalf of: Harry Abbasi DO documented in this encounter [facility] 09-25-2024 History of Presen t illness Narrative Reason [...] Diagnosis Date ADHD (attention deficit hyperactivity disorder) ([facility]) HISTORY PAST MEDICAL HISTORY SOCIAL HISTORY Past Medical History: Diagnosis Date ADHD (attention deficit hyperactivity disorder) ([facility]) Social History Tobacco Use Smoking status: [...] nursing note reviewed. Exam conducted with a title [employer] kindergarten teacher present. Vitals: Estimated body mass index is [...] to pharmacy at this time. Documented by Pankaj Bloom LPN on behalf of: MAEGAN Link documented in this encounter [facility] 09-11-2024 History of Presen t illness Narrative Reason [...] Diagnosis Date ADHD (attention deficit hyperactivity disorder) ([facility]) HISTORY PAST MEDICAL HISTORY SOCIAL HISTORY Past Medical History: Diagnosis Date ADHD (attention deficit hyperactivity disorder) ([facility]) Social History Tobacco Use Smoking status: [...] nursing note reviewed. Exam conducted with a title [employer] kindergarten teacher present. Vitals: Estimated body mass index is [...] by Shanice Baker LPN on behalf of: Harry Abbasi DO documented in this encounter [facility] 08-28-2024 History of Presen t illness Narrative [...] of: MAEGAN Link documented in this encounter [facility] 07-30-2024 History of Presen t illness Narrative [...] nursing note reviewed. Exam conducted with a [employer] kindergarten teacher present. Vitals: Estimated body mass index is [...] week with [facility] in [place] and will reach out to there office to reschedule appointment. Documented by Pankaj Bloom LPN on behalf of: Harry Abbasi DO documented in this encounter [facility] 07-04-2024 History of Presen t illness Narrative Subjective Patient ID: Ash Martinez [...] swollen. Comments: Light green mucus Mouth/Throat: Lips: [place]. Mouth: Mucous membranes are moist. Dentition: Normal [...] in the morning. documented in this encounter [facility] 06-28-2024 History of Presen t illness Narrative Reason [...] Diagnosis Date ADHD (attention deficit hyperactivity disorder) ([facility]) Social History Tobacco Use Smoking status: [...] of: MAEGAN Link documented in this encounter [facility] 05-29-2024 History of Presen t illness Narrative Reason [...] Diagnosis Date ADHD (attention deficit hyperactivity disorder) ([facility]) HISTORY PAST MEDICAL HISTORY SOCIAL HISTORY Past Medical History: Diagnosis Date ADHD (attention deficit hyperactivity disorder) ([facility]) Social History Tobacco Use Smoking status: [...] nursing note reviewed. Exam conducted with a [employer] kindergarten teacher present. Vitals: Estimated body mass index is [...] by Shanice Baker LPN on behalf of: Harry Abbasi DO documented in this encounter [facility] 02-17-2024 History of Presen t illness Narrative [address] [place] [id number] Patient: Ash Martinez Date of : 2000 [...] (attention deficit hyperactivity disorder) Anger Bipolar disorder ([facility]) PTSD (post-traumatic stress disorder) Past Surgical History: [...] APRN-CNP 02/17/24 1057 documented in this encounter [facility] 12-20-2023 History of Presen t illness Narrative Subjective Patient ID: Ash Martinez [...] in adult 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 Dr Abbasi, she should continue [...] Thrasher 12/20/23 1629 documented in this encounter [facility] Evaluation note Diagnosis 24 weeks gestation [...] [facility] Diagnosis Postoperative follow-up- Primary Follow-up examination, following unspecified surgery [facility] Diagnosis Miscarriage- Primary Unspecified spontaneous without mention of complication documented [facility]* Diagnosis PTSD (post-traumatic stress disorder)- Primary Posttraumatic stress disorder General counseling and advice for contraceptive management Class 2 obesity due to excess calories without serious comorbidity with body mass index (BMI) of 37.0 to 37.9 in adult documented [facility]* Diagnosis Nasal congestion- Primary Other diseases of nasal cavity and sinuses Viral URI Acute upper respiratory infections of unspecified site documented [facility]* Diagnosis Postoperative follow-up Follow-up examination, following unspecified surgery documented [facility] Diagnosis Sterilization consult Other general counseling and advice for contraceptive management documented in this encounter [facility]* Diagnosis Pre-op examination Request for sterilization Well woman exam with routine gynecological exam Routine gynecological examination Exposure to STD Vaginal discharge Leukorrhea, not specified as infective Upper back pain Unspecified backache documented in this encounter [facility]Not on filedocumented in this [facility] SystemInstructionsNot on filedocumented in [facility] System[facility]ructionsNot on filedocumented [facility] Reason for referral (narrative)* Consultation (Routine) - Pending Review Specialty Diagnoses / Procedures Referred By Vinny stoddard Referred To Contact Diagnoses PTSD (post-traumatic stress disorder) Summer Davalos APRN-FNP [address] [place] [address] Referral ID Status Reason Start Date Expiration Date Visits Requested Visits Authorized [id number] Pending Review Patient Preference 12/20/2023 12/19/2024 1 1 [facility] Summary Purpose Family History No [...] and content) DATE CREATED AUTHOR 01/27/2023 [facility] DATE CREATED AUTHOR AUTHOR'S ORGANIZ ATION 02/20/2024 [facility] DATE CREATED AUTHOR AUTHOR'S ORGANIZ ATION 07/06/2024 [facility] DATE CREATED AUTHOR AUTHOR'S ORGANIZ ATION 06/28/2025 [facility] DATE CREATED AUTHOR AUTHOR'S ORGANIZ ATION 06/29/2025 [facility] Care Teams (unrecognized sec tion and content) Director Of Advertising Sales Relationship Specialty Start Date End Date Reid Jasmine MD PCP - General Family Medicine 08/01/23 Director Of Advertising Sales Relationship Specialty Start Date End Date Summer Davalos, FENCE INSTALLER [facility] [address] [place] [address] PCP - General Internal Medicine 09/14/23 Director Of Advertising Sales Relationship Specialty Start Date End Date Summer Davalos Jeannette [facility] [address] [place] [address] PCP - General Internal Medicine 09/14/23 Director Of Advertising Sales Relationship Specialty Start Date End Date [facility] [address] [place] [address] PCP - General Family Medicine 05/22/24 Director Of Advertising Sales Relationship Specialty Start Date End Date [facility] [address] [place] [address] PCP - General Family Medicine 06/28/25 Reason for Visit (unrecogniz ed section and content) Reason Comments Routine Visit Reason Comments Miscarriage / Reason Comments Annual Exam Reason Comments Nasal Congestion Vomiting Fever Reason Comments Post-op Visit Follow-up Reason Comments Discuss Tubal Reason Comments Pre-op Visit Gynecologic Exam Well Women Visit Reason Onset Date Comments Appointment 07/04/2025 FOR RECORDS PERTAINING TO PATIENTS WHO ARE [...] BE BASED ON THE PRIMARY CLINICAL RECORDS. [employer] [facility]. provides no warranty or guarantee of the accuracy or completeness of information in this document.
--- NOTE | 2025-07-23 10:33 | P.GSHP_ITS ---
History of Present Illness History of Present Illness Chief complaint: requests for sterilization Narrative: Patient presents for presurgical testing. The patient requests sterilization and is scheduled for a bilateral laparoscopic salpingectomy. The patient denies any complaints at this time. She currently has a Nexplanon for control. Review of Systems ROS Narrative REVIEW OF SYSTEMS: Negative except as stated in HPI, ten or more systems reviewed. Constitutional: No fever, chills, weakness ENT: No sore throat or epistaxis Cardiovascular: No edema, chest pain, palpitations, or activity intolerance Respiratory: No shortness of breath, cough, or wheezing Musculoskeletal: No joint pain or swelling Gastrointestinal: No abdominal pain, constipation, diarrhea, or vomiting Genitourinary: No dysuria or hematuria Neurological: No numbness, tingling, weakness, or headache Psychiatric: No mood changes PFSH PFSH Medical History (Updated 07/23/25 @ 10:22 by Savannah Wilkerson NP) Knee pain ?M25.569 - Pain in unspecified knee (ICD-10) Back pain ?M54.9 - Dorsalgia, unspecified (ICD-10) 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 - depression (ICD-10) PTSD (post-traumatic stress disorder) ?F43.10 - Post-traumatic stress disorder, unspecified (ICD-10) Anxiety ?F41.9 - Anxiety disorder, unspecified (ICD-10) Asthma ?J45.909 - Unspecified asthma, uncomplicated (ICD-10) Request for sterilization ?Z30.2 - Encounter for sterilization (ICD-10) Heartburn ?R12 - Heartburn (ICD-10) Low iron ?E61.1 - Iron deficiency (ICD-10) Surgical History (Updated 07/23/25 @ 10:22 by Savannah Wilkerson NP) History of section ?Z98.891 - History of uterine scar from previous surgery (ICD-10) History of section ?Z98.891 - History of uterine scar from previous surgery (ICD-10) Family History (Updated 07/23/25 @ 10:22 by Savannah Wilkerson NP) Other Family history of DVT Family history of breast cancer Family history of cervical cancer Family history of hypertension Social History (Updated 07/23/25 @ 10:17 by Savannah Wilkerson NP) Within the past year, how often did you have a drink containing alcohol: monthly or less Smoking status: Never smoker Non-prescribed substance use: denies use 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 Highest level of school completed/degree received: high school graduate Little interest or pleasure in doing things: not at all Feeling down, depressed, or hopeless: not at all Meds Home Medications and Allergies Home Medications ?Medication ?Instructions ?Recorded ?Confirmed ?Type ibuprofen 800 mg tablet 800 mg PO Q8H PRN pain 14 da ys #40 11/11/24 07/23/25 Rx tabs Allergies Allergy/AdvReac Type Severity Reaction Status Date / Time ondansetron (From Zofran) Allergy Mild Rash Verified 07/23/25 10:15 Exam Narrative Exam Narrative: Constitutional: Awake, alert, comfortable, well-appearing, nontoxic, interactive , vital signs as charted Head: Normocephalic, atraumatic Neck: Supple, normal appearance, normal range of motion, no meningeal signs, no lymphadenopathy Respiratory: No respiratory distress, breath sounds clear Cardiovascular: Regular rate and rhythm, strong and regular heart tones Abdomen: Nontender, normal bowel sounds, soft, no CVA tenderness Musculoskeletal: Normal gait, no swelling or edema Skin: No rashes or induration, no lesions, only visible skin inspected Neuro: No neurological deficits, normal sensation Psychiatric: Oriented ?3, normal affect Assessment and Plan Assessment and Plan (1) Request for sterilization: Plan Robot-assisted bilateral laparoscopic salpingectomy scheduled with Dr. Abbasi August 02, 2025.
== END 2025-07-23 10:04 | disposition home or self-care (01) ==
PROVIDERS: PCP Nurse Practitioner Family; Visit Provider Obstetrics & Gynecology
DX: Z01.818 Encounter for other preprocedural examination (principal)
CPT/HCPCS: G0463

== ENCOUNTER 2025-08-02 05:59 | Day surgery (SDC) | payer OTHER, SELFPAY ==
[2025-07-23 10:30] VITALS: BP 115/79; PULSE 78; TEMP 36.2; O2SAT 98; BMI 44.4
[2025-08-02] VITALS (9 sets, daily range): BP systolic 114–139; BP diastolic 67–89; PULSE 61–79; TEMP 36.2–36.4; O2SAT 95–97; BMI 44.5
--- OUTSIDE RECORDS SUMMARY | 2025-08-02 06:02 | XMS_ITS | CCD ---
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 Applications Development Engineer Name Role Phone BOYDC, DR BEAN Primary [...] Unavailable Reid Jasmine MD Primary Care Provider MAAI COLÓNIANA Valentín Referring Unavailable SHIMONS, SUMMER GUTIÉRREZ Primary Care Unavailable SUZAN, SUMMER GUTIÉRREZ Attending Unavailable SUZAN, SUMMER GUTIÉRREZ Referring Unavailable KUNS, TATY Primary Care Unavailable KATARZYNA, NIVIA Valentín Attending Unavailable SUMMER DAVALOS Referring Unavailable KUNS, SUMMER GUTIÉRREZ Primary Care Unavailable YIMI BARRAGAN Attending Unavailable KATARZYNA, NIVIA L Referring Unavailable KATARZYNA, NIVIA L Primary Care Unavailable Unavailable Primary Care Provider Unavailabl e Kuns ELECTRONIC ASSEMBLER GROUP LEADER-PANTS PRESSER AUTOMATIC, Summer Gutiérrez Primary Care Provider Katarzyna ELECTRONIC ASSEMBLER GROUP LEADER-VP OUTCOMES, Nivia Valentín Primary Care Provider BENI, ALYSSA [...] UnavailNivia Tse Primary Care Provider Allergies Allergy ClassificationReported Allergen(s)Allergy TypeDate of OnsetReaction(s) Facility (1 source)[facility] AllergyThe [facility] (20 sources)OndansetronDrug Bwzxvij31-51-1297[facility] Work Phone: (7 sources)Ondansetron; Translations: [ONDANSETRON HCL]Drug Dpadmkl36-57-7766 [facility] Rep[facility] Medications Current Medications MedicationDrug Class(es)DatesSig (Normalized)Sig (Original)Calcium Carbonate Antacid (TUMS PO) (20 sources) End: 15-24-7743Tpjnzmw Carbonate Antacid (TUMS PO) Take by mouth 11/15/2024 DiscontinuedCalcium Carbonate Antacid (TUMS PO) Take by mouth Activecitalopram 20 mg oral tablet (20 sources)Serotonin Reuptake InhibitorStart: 09-25-2024 End: 07-30-1792pabs 1 tablet by mouth once dailycitalopram (CeleXA) 20 MG tablet Indications: Anxiety with depression Take 1 tablet (20 mg) by mouth Daily 30 tablet 11 09/25/2024 09/25/2025 Activecyclobenzaprine hydrochloride 10 mg oral tablet (1 source)Muscle RelaxantStart: 17-91-4172vpdn 1 tablet by mouth three times daily as needed for muscle spasmscyclobenzaprine (Flexeril) 10 MG tablet Take 10 mg by mouth 3 (three) times a day as needed for muscle spasms. 0 07/31/2023 ActiveEthinyl Estradiol / Ferrous fumarate / Norethindrone (1 source)EstrogenStart: 10-26-2023 End: 33-65-3895jmhe 1 tablet by mouth in the morningnorethindrone-ethinyl estradiol-iron (Lo Loestrin Fe) 1 MG-10 MCG / 10 MCG tablet Indications: Encou nter for surveillance of contraceptive pills Take 1 tablet by mouth in the morning. Take 1 tablet by mouth daily. 28 tablet 11 10/26/2023 09/26/2024 Active etonogestrel 68 mg drug implant (6 sources)ProgestinStart: 12-17-2024 End: 69-63-9045ursjknydyjhf-eluting 68 mg contraceptive implant 1 eachFLUoxetine 10 mg oral capsule (1 source)Serotonin Reuptake Inhibitortake 1 capsule by mouth in the morning FLUoxetine (PROzac) 10 mg capsule Take 1 capsule (10 mg total) by mouth in the morning. Activefluticasone propionate 0.05 mg/actuat metered dose nasal spray (2 sources)CorticosteroidStart: 66-35-6298eppn 2 spray(s) nasal route in the morningfluticasone propionate (FLONASE) 50 mcg/actuation nasal spray Administer 2 sprays into each nostrilin the morning. 16 g 07/04/2024 Activeibuprofen 800 mg oral tablet (12 sources)Nonsteroidal Anti-inflammatory DrugStart: 27-13-0348vrpr 1 tablet by mouth every eight hoursibuprofen 800 MG tablet Take 800 mg by mouth every 8 (eight) hours 11/11/2024 ActiveStart: 43-74-0207ifhbwnajf 800 MG tablet Take 800 mg by mouth in the morning and 800 mg at noon and 800 mg in the evening. 0 07/31/2023 ActivemetroNIDAZOLE 500 mg oral tablet (3 sources)Nitroimidazole AntimicrobialStart: 06-27-2025 End: 58-15-3894qile 1 tablet by mouth in the morningmetroNIDAZOLE (Flagyl) 500 MG tablet Indications: Vaginal discharge Take 1 tablet (500 mg) by mouthin the morning and 1 tablet (500 mg) before bedtime. Do all this for 7 days. Do not drink alcohol while taking this medication. 14 tablet 06/27/2025 07/04/2025 Activenaproxen 500 mg oral tablet (1 source)Nonsteroidal Anti-inflammatory Drugnaproxen (Naprosyn) 500 MG tablet every 12 (twelve) hours. 0 ActivePRENATAL 21-IRON FU-FOLIC ACID ORAL (2 sources) 21-IRON FU-FOLIC ACID ORAL Take by mouth once daily. Active MV-Min-Fe Fum-FA-DHA ( 1 PO) (20 sources) End: 29-65-9412Xdjjnxax MV-Min-Fe Fum-FA-DHA ( 1 PO) Take by mouth 11/15/2024 DiscontinuedPrenatal MV-Min-Fe Fum-FA-DHA ( 1 PO) Take by mouth Active Completed/Discontinued Medications MedicationDrug Class(es)DatesSig (Normalized)Sig (Original)Ethinyl Estradiol / norgestimate (2 sources)Progestin, Estrogen End: 46-08-9942nrgk 1 tablet by mouth once in the morningnorgestimate-ethinyl estradioL (ORTHO-CYCLEN) 0.25-35 mg-mcg per tablet Take 1 tablet by mouth in the morning. 02/17/2024 Discontinued (Therapy completed)take 1 tablet by mouth once in the morningnorgestimate-ethinyl estradioL (ORTHO-CYCLEN) 0.25-35 mg-mcg per tablet Take 1 tablet by mouth in the morning. 0 ActiveProgesterone (8 sources)ProgesteroneStart: 04-05-2024 End: 69-91-3296Prfzpihoself Micronized (progesterone, bulk,) powder 04/05/2024 06/28/2024 DiscontinuedStart: 21-69-2514Ogstdqjsudzh Micronized (progesterone, bulk,) powder 04/05/2024 Active Problems Active Problems Problem ClassificationProblemDateDocumented DateEpisodic/ChronicAnxiety disorders (20 sources)Post-traumatic stress disorder, unspecified; Translations: [Mixed anxiety and depressive disorder]Onset: 802317-63-5867TcucffgFswhjzghjkkzb and procreative management (9 sources)Encounter for surveillance of implantable subdermal contraceptive; Translations: [Encounter for other general counseling and advice on contraception]Onset: 94-69-4120PoxwxbjhCbsjh of unknown origin (1 source)FeverOnset: 84-33-5492LufxwzzzVlvvhbitccdmh and screening for infectious disease (8 sources)Contact with and (suspected) exposure to infections with a predominantly sexual mode of transmission; Translations: [Exposure to sexually transmissible disorder]Onset: 55-63-8461ZpwdjixyXnqcge and vomiting (1 source)VomitingOnset: 87-19-1504KeqshlkdJvbz wounds of extremities (1 source)Laceration without foreign body, right lower leg, initial encounter; Translations: [Laceration without foreign body, right lower leg, initial encounter]Onset: 96-04-2241CfcafsgtRchrm complications of (2 sources) size does not accord with dates; Translations: [Uterine size- date discrepancy, unspecified trimester]68-38-6850RripgfkyZggwc female genital disorders (3 sources)Vaginal discharge; Translations: [Other specified noninflammatory disorders of vagina]99-87-7010DtjruhglQifia injuries and conditions due to external causes (1 source)Laceration - injuryOnset: 09-61-5522TlzjaxlaBfovb non-traumatic joint disorders (1 source)Pain in wristOnset: 86-48-7868JopylucfAfzlu nutritional; endocrine; and metabolic disorders (1 source)Other obesity due to excess calories; Translations: [Other obesity due to excess calories]Onset: 55-29-5671HxqasclVlpzb nutritional; endocrine; and metabolic disorders (1 source)Body mass index (BMI) 37.0-37.9, adult; Translations: [Body mass index (BMI) 37.0-37.9, adult]Onset: 88-15-3034ZajhahkTfjmt nutritional; endocrine; and metabolic disorders (1 source)Obesity caused by energy imbalance; Translations: [Other obesity due to excess calories]56-50-1973NrzsytgRnymj screening for suspected conditions (not mental disorders or infectious disease) (4 sources)Patient encounter status; Translations: [Encounter for screening for diabetes mellitus]29-36-5617OkmyzvfxCaobn upper respiratory disease (1 source)Nasal congestion; Translations: [Nasal congestion]Onset: 07-04-2024 EpisodicOther upper respiratory disease (2 sources)Nasal congestion; Translations: [Nasal congestion]Onset: 07-04-2024 54-64-4066MsecfbcdBeqjhueb codes; unclassified (2 sources)Gestation period, 24 weeks; Translations: [24 weeks gestation of ]98-45-4833NdzcfxweJtgqumys codes; unclassified (2 sources)Gestation period, 28 weeks; Translations: [28 weeks gestation of ]66-89-1501WbebegytYtowqdox codes; unclassified (2 sources)Gestation period, 30 weeks; Translations: [30 weeks gestation of ]10-52-0734EglhtmvfImwjjrtb codes; unclassified (2 sources)Gestation period, 35 weeks; Translations: [35 weeks gestation of ]20-57-3229MahxkaiqYhcdpzdd codes; unclassified (2 sources)Gestation period, 37 weeks; Translations: [37 weeks gestation of ]57-44-9307KmykudfxCgxbfgjf codes; unclassified (2 sources)Gestation period, 38 weeks; Translations: [38 weeks gestation of ]29-50-1079EkwnmubrSsdi and subcutaneous tissue infections (1 source)Cellulitis of left upper limb; Translations: [CELLULITIS OF LEFT UPPER LIMB]Onset: 17-79-9708EkgulswdTssprzotrku; intervertebral disc disorders; other back problems (1 source)Backache; Translations: [Dorsalgia, unspecified]37-25-2798Tkqiqknf Sprains and strains (1 source)Unspecified sprain of left wrist, initial encounter; Translations: [Unspecified sprain of left wrist, initial encounter]Onset: 22-40-4901Ncxevbvg Unclassified (2 sources)CONTACT W/AND (SUSP) EXPOS COVID-19; Translations: [CONTACT W/AND (SUSP) EXPOS COVID-19]Onset: 11-12-6665Xpsvicpdcxag (1 source)Annual ExamOnset: 03-66-3556Pczehtoofkum (1 source)Cold Like SymptomsOnset: 20-66-0855Ytjauntdushp (1 source)Sore Throat, EaracheOnset: 79-73-4415Hfrwh infection (1 source)COVID-19; Translations: [COVID-19]Onset: 05-17-2022 Past or Other Problems Problem ClassificationProblemDateDocumented DateEpisodic/ChronicMood disorders (4 sources)Mood disordersOnset: 02-17-2024 Resolved: Other aftercare (12 sources)Surgical follow-up; Translations: [Encounter for follow-up examination after completed treatment for conditions other than malignant neoplasm]Onset: 754249-66-5264DvkcswqxLuuwq and delivery including normal (20 sources)Third trimester ; Translations: [Encounter for supervision of normal , unspecified, third trimester]Onset: 09-25-2024 Resolved: 686479-55-3106EnkdkoqeDmiqb upper respiratory infections (3 sources)Acute upper respiratory infection, unspecified; Translations: [Viral upper respiratory tract infection]Onset: 916036-15-6292DftvltioTfkxmfag codes; unclassified (20 sources)Gestation period, 32 weeks; Translations: [32 weeks gestation of ]Onset: 09-25-2024 Resolved: 744903-58-7986RuhfxiqoEevdqzor codes; unclassified (2 sources)Gestation period, 15 weeks; Translations: [15 weeks gestation of ]62-30-0516UlnurigyTolduvei codes; unclassified (20 sources)Gestation period, 36 weeks; Translations: [36 weeks gestation of ]Onset: 10-22-2024 Resolved: 043871-51-5403ZzqybjflWzkrsypkwzk (4 sources)Complete or unspecified spontaneous without complication; Translations: [Miscarriage]Onset: 326133-47-6548VcpmgfhjFjpvvoeaqypg (1 source)CONTACT W/AND (SUSP) EXPOS COVID-19; Translations: [CONTACT W/AND (SUSP) EXPOS COVID-19]Onset: 71-98-1406Udwethehfdjg (4 sources)Onset: Results Test NameValueInterpretationReference RangeFacilityIGP,APTIMA HPV,AGE GDLNon 51-24-2144WPI GDLN ACOG TESTINGNote.NOMS HealthcareComment on above:TESTS RESULT FLAG UNITS REF RANGE LAB Clinician Provided Cytology Information Source.............Cervix;Endocervix No. of containers..01 ThinPrep Vial Age Algo ACOG Keke... FLAG LEGEND: L-Low Normal,H-High Normal,LL-Alert Low,HH-Alert High <-Panic Low,>-Panic High,A-Abnormal,AA-Critical Abnormal Performed at: 01 =[facility] [place] [address] Darlene Gonzalez MD, IGP, RFX APTIMA HPV ASCUNote.NOMS HealthcareComment on above:TESTS RESULT FLAG UNITS REF RANGE LAB DIAGNOSIS: 02 NEGATIVE FOR INTRAEPITHELIAL LESION OR MALIGNANCY. Specimen adequacy: 02 Satisfactory for evaluation. Endocervical and/or squamous metaplastic cells (endocervical component) are present. Performed by: Braxton Palencia, Cellar Supervisor ([facility]) . 02 Note: Note 02 [...] <-Panic Low,>-Panic High,A-Abnormal,AA-Critical Abnormal Performed at: [address] [address] Darlene Gonzalez MD, Performed at: =[facility] [address] [id number] Communications Specialist: Darlene Gonzalez MD, Phone: [phone] Performed at: [facility] [address] [id number] Communications Specialist: Darlene Gonzalez MD, Phone: [phone] BRUSH-SPATULA CERVIX ENDOCERVIX CLINISYNCNOMS HealthcareRECURRENT VAGINITIS (HTRX)on 31-29-1262RZBYIIUET VAGINAE 0NOMS HealthcareATOPOBIUM VAGINAENot detectedNOMS HealthcareBVAB 2,3 (BACTERIAL VAGINOSIS ASSOCIATED BACTERIA 2, 3); MOBILUNCUS CHE7MYLJ HealthcareBVAB 2,3 (BACTERIAL VAGINOSIS ASSOCIATED BACTERIA 2, 3); MOBILUNCUS SPPNot detectedNOMS HealthcareCANDIDA ALBICANS, PARAPSILOSIS, MDMOZSFDHP4LCBB HealthcareCANDIDA ALBICANS, PARAPSILOSIS, TROPICALISNot detectedNOMS HealthcareCANDIDA GLABRATA0 NOMS HealthcareCANDIDA GLABRATANot detectedNOMS HealthcareCANDIDA QGDYTR0KXKU HealthcareCANDIDA KRUSEINot detectedNOMS HealthcareCHLAMYDIA DWHKFKEFHRN8PZTB HealthcareCHLAMYDIA TRACHOMATISNot detectedNOMS HealthcareGARDNERELLA VAGINALIS0 NOMS HealthcareGARDNERELLA VAGINALISNot detectedNOMS HealthcareMEGASPHAERA (TYPES 1, 2)0NOMS HealthcareMEGASPHAERA (TYPES 1, 2)Not detectedNOMS Healthcare MYCOPLASMA WEVMUVZHUY4TWQZ HealthcareMYCOPLASMA GENITALIUMNot detectedNOMS HealthcareNEISSERIA JLYLAWGNPHK1SSNH HealthcareNEISSERIA GONORRHOEAENot detected NOMS HealthcareTRICHOMONAS OUGXFWCEP2HNXY HealthcareTRICHOMONAS VAGINALISNot detectedNOMS HealthcareNOMS HealthcareXR WRIST LT MIN 3 VWSon 37-79-3331LD WRIST LT MIN 3 VWSXR WRIST LT MIN 3 VWS XR WRIST LT MIN 3 VWS Clinical history:left wrist pain pain Comparison: 02/09/2021 Impression: No acute process, fracture or dislocation. Alignment and mineralization appear to be within normal limits. If there is snuffbox tenderness or concern for scaphoid injury, follow up evaluation in 7 to10 daysmay be of additional diagnostic benefit. Finalized by Jose Aj MD on 06/28/2025 8:39 AMNormalProCovenant Children'S HospitalPOCT RAPID STREP Aon 02-08-2025S. pyogenes Ag IA Ql (Unsp spec)Positive AbnormalNegativeWayne HospitalComment on above:Performed By: #### NSAS #### [facility] ([address] [address] VIRSARS/FLU A+B/RSV BY NAAT/MOLECULAR (M4RT COLLECTION TUBE)on 73-21-9132XFLY/FLU A+B/RSV BY NAAT/MOLECULAR (M4RT COLLECTION TUBE)FLU A PCR Negative FLU B PCR Negative RSV BY PCR Negative SARS COV 2 BY PCR Not DetectedNormalNot DetectedProCovenant Children'S HospitalComment on above:Order Comment: The Xpert Xpress SARS-CoV-2/Flu/RSV Plus test is a rapid, [...] operators who are performing tests using either Zilyo DX or Command Information and is limited to laboratories that meet [...] by this test are generally detectable in upperrespiratory samples during the acute phase of infection. [...] preclude SARS-CoV-2, influenza A, influenza B and RSVinfection and should not be used as the sole basis for treatment or other patient management decisions. Negative results must be combined with clinical observations, patient history and epidemiological information. An Invalid result may occur with specimen-associated inhibition unable to be resolved with specimen repeat. Fact Sheet for Healthcare Providers: https://www.fda.gov/media/361804/download Fact Sheet for Patients: https://www.fda.gov/media/868814/downloadPerformed By: #### COVFLR #### [facility] ([facility]LY [facility], [facility]) [address] [place] [address] VIRALL CBC WITH AUTO DIFFon 04-23-3576USJOFNOXN ABSOLUTE AUTO0 NOMS HealthcareBasophils/100 WBC (Bld)0.3 %0.2 - 2.0 %[facility] Eosinophils/100 WBC (Bld)0.3 %Low0.9 - 7.0 %NOMS HealthcareErythrocyte distribution width (RBC) [Ratio]14.4 %11.0 - 15.0 %NOMS HealthcareHematocrit (Bld) [Volume fraction]26.5 %Low36.0 - 48.0 %NOMS HealthcareHemoglobin (Bld) [Mass/Vol]8.8 g/dLLow12.0 - 16.0 g/dLNOMS HealthcareIMMATURE GRANULOCYTES ABS AUTO0.06HighNOMS HealthcareImmature granulocytes/100 WBC (Bld)0.5 %0.0 - 0.5 % NOMS HealthcareInterpretation and review of laboratory resultsAbnormalNOMS HealthcareLYMPHOCYTES ABSOLUTE AUTO2.3NOMS HealthcareLymphocytes/100 WBC (Bld) 19.6 %Low20.5 - 60.0 %[facility] InstituteH (RBC) [Entitic mass]28.4 pg26.7 - 34.0 pgCrittenton Behavioral HealthMCHC (RBC) [Mass/Vol]33.2 g/dL29.9 - 35.2 g/dLCrittenton Behavioral Health MCV (RBC) [Entitic vol]85.5 fL81.0 - 99.0 fLCrittenton Behavioral HealthMONOCYTES ABSOLUTE AUTO1.1HighCrittenton Behavioral HealthMonocytes/100 WBC (Bld)9.1 %1.7 - 12.0 %[facility] HealthNEUTROPHILS ABSOLUTE AUTO8.2HighCrittenton Behavioral HealthNeutrophils/100 WBC (Bld)70.2 %43.0 - 75.0 %[facility] Behavior[facility] HealthPlatelet mean volume (Bld) [Entitic vol] 10.5 fL9.5 - 13.5 fLCrittenton Behavioral HealthTBH EO #0N[facility]S [facility] [id number] County Memorial Hospital RBC3.1LowNFreeman Neosho Hospital WBC11.7HighCrittenton Behavioral HealthCLINISYNC [facility] HealthALL CBC WITH AUTO DIFFon 51-50-6989WYJDBDLCT ABSOLUTE LAVE3BXAZCrittenton Behavioral HealthBasophils/100 WBC (Bld)0.4 %0.2 - 2.0 %[facility] HealthEosinophils/100 WBC (Bld)1.5 %0.9 - 7.0 %[facility]al HealthErythrocyte distribution width (RBC) [Ratio]14.2 %11.0 - 15.0 %[facility] HealthHematocrit (Bld) [Volume fraction]32.1 %Low36.0 - 48.0 %[facility] HealthHemoglobin (Bld) [Mass/Vol]10.8 g/dLLow12.0 - 16.0 g/dLCrittenton Behavioral HealthIMMATURE GRANULOCYTES ABS AUTO0.03[facility] Immature granulocytes/100 WBC (Bld)0.4 %0.0 - 0.5 %[facility] HealthInterpretation and review of laboratory resultsAbnormalCrittenton Behavioral HealthLYMPHOCYTES ABSOLUTE OWEZ2XBVFKansas City VA Medical CenterLymphocytes/100 WBC (Bld)27.6 %20.5 - 60.0 %[facility] MCH (RBC) [Entitic mass]28.5 pg26.7 - 34.0 pgFreeman Heart InstituteHC (RBC) [Mass/Vol]33.6 g/dL29.9 - 35.2 g/dLCrittenton Behavioral HealthMCV (RBC) [Entitic vol]84.7 fL 81.0 - 99.0 fLNOSD HealthcareMONOCYTES ABSOLUTE AUTO0.7NOSD Healthcare Monocytes/100 WBC (Bld)10 %1.7 - 12.0 %[facility] HealthcareNEUTROPHILS ABSOLUTE AUTO 4.3NOSD HealthcareNeutrophils/100 WBC (Bld)60.1 %43.0 - 75.0 %[facility] Platelet mean volume (Bld) [Entitic vol]10.7 fL9.5 - 13.5 fLCrittenton Behavioral HealthTB EO #0.1NOMS HealthcareTB LMD613KIODKansas City VA Medical CenterTB RBC3.79LowNOKansas City VA Medical CenterTB WBC7.2NOMS HealthcareCLINISYNCNCURAHEALTH [facility] [place] [facility] [place] HealthcareUrinalysis macro (dipstick) panel (U)on 00-59-9240Aqtniqveh, UANegativeNegative - 4(70) +++ mg/dLNOMS Healthcare Blood, UANegativeNegative - 50 Jaguar/mcLNOMS HealthcareClarity, UAClearNOSD HealthcareColor, UAYellowNOSD HealthcareGlucose, UANegativeNegative - 2000(110) ++++ mg/dLNOMS HealthcareInterpretation and review of laboratory resultsAbnormal [facility] HealthcareKetones, UANegativeNegative - 160(16) ++++ mg/dLNOSD Healthcare Leukocytes, UATraceNegative - 500+++ Lizeth/mcLNOSD HealthcareNitrite, UANegative Negative - PositiveNOMS HealthcarepH, UA75 - 9NOMS HealthcareProtein, UAPositive Negative - 2000(20) ++++ mg/dLNOMS HealthcareComment on above:30Spec Grav, UA 1.0251 - 1.03NOMS HealthcareUrobilinogen, UA1.00.2 - 12 mg/dLNOMS HealthcareNOSD HealthcareUrinalysis macro (dipstick) panel (U)on 80-37-9870Fhyipsabq, UA NegativeNegative - 4(70) +++ mg/dLNOMS HealthcareBlood, UANegativeNegative - 50 Jaguar/mcLNOMS HealthcareClarity, UAClearNOMS HealthcareColor, UAYellowNOMS HealthcareGlucose, UANegativeNegative - 1999(110) ++++ mg/dLNOMS Healthcare Interpretation and review of laboratory resultsAbnormalNOMS HealthcareKetones, UANegativeNegative - 160(16) ++++ mg/dLNOMS HealthcareLeukocytes, UATrace Negative - 500+++ Lizeth/mcLNOMS HealthcareNitrite, UANegativeNegative - Positive NOMS HealthcarepH, UA6.55 - 9NOMS HealthcareProtein, UATraceNegative - 2000(20) ++++ mg/dLNOMS HealthcareSpec Grav, UA1.031 - 1.03NOMS HealthcareUrobilinogen, UA0.20.2 - 12 mg/dLNOMS HealthcareNOMS HealthcareALL MISCELLANEOUS TESTon 02-40-0816YSSMJIYXCFLTJ TESTCOMMENT.[facility] HealthcareComment on above:Test Ordered: 880907 Strep Gp B Culture+Rflx Strep Gp B Culture+Rflx Negative CB Reference Range: Negative Centers for Disease Control and Prevention (CDC) and [place] [employer] of Obstetricians and Gynecologists (ACOG) guidelines [...] to clindamycin is noted. Performed at: - Lab[address] [id number] Communications Specialist: Ender Win PhD, Phone: [phone] GROUP B STREP [id number] Group B Streptococcus Colonization Detection Culture With Re [facility] HOSPITALISYHawkins County Memorial HospitalUrinalysis macro (dipstick) panel (U)on 10-22-2024 Bilirubin, UANegativeNegative - 4(70) +++ mg/dLNOMS HealthcareBlood, UANegative Negative - 50 Jaguar/mcLNOMS HealthcareClarity, UAClearNOMS HealthcareColor, UA YellowNOMS HealthcareGlucose, UANegativeNegative - 1999(110) ++++ mg/dLNOMS HealthcareInterpretation and review of laboratory resultsAbnormalNOSD Healthcare Ketones, UANegativeNegative - 160(16) ++++ mg/dLNOMS HealthcareLeukocytes, UA PositiveNegative - 500+++ Lizeth/mcLNOMS HealthcareComment on above:smallNitrite, UANegativeNegative - PositiveNOMS HealthcarepH, UA8.55 - 9N[facility] Healthcare Protein, UAPositiveNegative - 2000(20) ++++ mg/dLNOMS HealthcareComment on above:30Spec Grav, UA1.021 - 1.03NOMS HealthcareUrobilinogen, UA0.20.2 - 12 mg/dLNOMS HealthcareNOMS HealthcareUrinalysis macro (dipstick) panel (U)on 26-60-2529Qesroxdag, UANegativeNegative - 4(70) +++ mg/dLNOMS HealthcareBlood, UANegativeNegative - 50 Jaguar/mcLNOMS HealthcareClarity, UAClearNOMS Healthcare Color, UAYellowNOMS HealthcareGlucose, UANegativeNegative - 1999(110) ++++ mg/dL NOMS HealthcareInterpretation and review of laboratory resultsNormalNOSD HealthcareKetones, UANegativeNegative - 160(16) ++++ mg/dLNOMS Healthcare Leukocytes, UANegativeNegative - 500+++ Lizeth/mcLNOSD HealthcareNitrite, UA NegativeNegative - PositiveNOMS HealthcarepH, UA75 - 9NOMS HealthcareProtein, UA NegativeNegative - 2000(20) ++++ mg/dLNOMS HealthcareSpec Grav, UA1.021 - 1.03 NOMS HealthcareUrobilinogen, UA1.00.2 - 12 mg/dLNOMS HealthcareNOMS Healthcare Urinalysis macro (dipstick) panel (U)on 16-30-5770Yyyhlwpjm, UANegativeNegative - 4(70) +++ mg/dLNOMS HealthcareBlood, UANegativeNegative - 50 Jaguar/mcLNOMS HealthcareClarity, UAClearNOMS HealthcareColor, UAYellowNOMS HealthcareGlucose, UANegativeNegative - 1999(110) ++++ mg/dLNOMS HealthcareInterpretation and review of laboratory resultsNormalNOMS HealthcareKetones, UANegativeNegative - 160(16) ++++ mg/dLNOMS HealthcareLeukocytes, UANegativeNegative - 500+++ Lizeth/mcL NOMS HealthcareNitrite, UANegativeNegative - PositiveNOMS HealthcarepH, UA75 - 9 NOMS HealthcareProtein, UANegativeNegative - 1999(20) ++++ mg/dLNOMS Healthcare Spec Grav, UA1.011 - 1.03NOMS HealthcareUrobilinogen, UA0.20.2 - 12 mg/dLNOMS HealthcareNOMS HealthcareUrinalysis macro (dipstick) panel (U)on 09-11-2024 Bilirubin, UANegativeNegative - 4(70) +++ mg/dLNOMS HealthcareBlood, UANegative Negative - 50 Jaguar/mcLNOMS HealthcareClarity, UAClearNOMS HealthcareColor, UA YellowNOMS HealthcareGlucose, UANegativeNegative - 1999(110) ++++ mg/dLNOMS HealthcareInterpretation and review of laboratory resultsNormalNOSD Healthcare Ketones, UANegativeNegative - 160(16) ++++ mg/dLNOMS HealthcareLeukocytes, UA NegativeNegative - 500+++ Lizeth/mcLNOMS HealthcareNitrite, UANegativeNegative - PositiveNOMS HealthcarepH, UA5.55 - 9NOMS HealthcareProtein, UANegativeNegative - 1999(20) ++++ mg/dLNOMS HealthcareSpec Grav, UA1.021 - 1.03N[facility]S Healthcare Urobilinogen, UA1.00.2 - 12 mg/dLNOMS HealthcareNOMS HealthcareUrinalysis macro (dipstick) panel (U)on 23-44-2882Wxdxrarwy, UANegativeNegative - 4(70) +++ mg/dL NOMS HealthcareBlood, UANegativeNegative - 50 Jaguar/mcLNOMS HealthcareClarity, UA ClearNOMS HealthcareColor, UALight YellowNOMS HealthcareGlucose, UANegative Negative - 1999(110) ++++ mg/dLNOMS HealthcareInterpretation and review of laboratory resultsNormalNOMS HealthcareKetones, UANegativeNegative - 160(16) ++++ mg/dLNOMS HealthcareLeukocytes, UANegativeNegative - 500+++ Lizeth/mcLNOMS HealthcareNitrite, UANegativeNegative - PositiveNOMS HealthcarepH, UA5.55 - 9 NOMS HealthcareProtein, UANegativeNegative - 2000(20) ++++ mg/dLNOMS Healthcare Spec Grav, UA1.0151 - 1.03NOMS HealthcareUrobilinogen, UA1.00.2 - 12 mg/dLNOMS HealthcareNOMS HealthcareUrinalysis macro (dipstick) panel (U)on 07-30-2024 Bilirubin, UANegativeNegative - 4(70) +++ mg/dLNOMS HealthcareBlood, UANegative Negative - 50 Jaguar/mcLNOSD HealthcareClarity, UAClearNOMS HealthcareColor, UA YellowNOMS HealthcareGlucose, UANegativeNegative - 1999(110) ++++ mg/dLNOSD HealthcareInterpretation and review of laboratory resultsNormOhioHealth Mansfield Hospital Healthcare Ketones, UANegativeNegative - 160(16) ++++ mg/dLNOMS HealthcareLeukocytes, UA NegativeNegative - 500+++ Lizeth/mcLNOSD HealthcareNitrite, UANegativeNegative - PositiveNOMS HealthcarepH, UA6.55 - 9NOMS HealthcareProtein, UANegativeNegative - 2000(20) ++++ mg/dLNOMS HealthcareSpec Grav, UA1.0151 - 1.03NOSD Healthcare Urobilinogen, UA0.20.2 - 12 mg/dLNOMS [facility] HospitalNOSD HealthcarePOCT Influenza A/Influenza B/SARS-COV-2 Veritoron 65-95-4590Puwtasll Poct Influenza A Antigen NegativeElyria Memorial HospitalExternal Poct Influenza B AntigenNegative [facility], [facility]–1983ARS-CoV-2 (COVID-19) Ag IA.rapid Ql (Resp)Negative [facility] CenterUrinalysis macro (dipstick) panel (U)on 32-82-5709Ntpcfzaba, UAPositiveNegative - 4(70) +++ mg/dLNOSD Healthcare Comment on above:smallBlood, UANegativeNegative - 50 Jaguar/mcLNOMS Healthcare Clarity, UAClearNOMS HealthcareColor, UAYellowNOMS HealthcareGlucose, UANegative Negative - 2000(110) ++++ mg/dLNOMS HealthcareInterpretation and review of laboratory resultsAbnormalNOMS HealthcareKetones, UAPositiveNegative - 160(16) ++++ mg/dLNOMS HealthcareComment on above:15Leukocytes, UANegativeNegative - 500+++ Lizeth/mcLNOMS HealthcareNitrite, UANegativeNegative - PositiveNOMS HealthcarepH, UA5.55 - 9NOMS HealthcareProtein, UATraceNegative - 2000(20) ++++ mg/dLNOMS HealthcareSpec Grav, UA1.0301 - 1.03NOMS HealthcareUrobilinogen, UA0.2 0.2 - 12 mg/dLNOMS HealthcareNOMS HealthcareAFP, SERUM, OPEN SPINA BIFIDAon 53-83-0913QQC MOM1.17.NOMS HealthcareAFP VALUE27.6 ng/mL.NOMS HealthcareCOMMENT: Comment.[facility] HealthcareComment on above:Vandana Nina, Ph.D., [facility] Director References: Available Upon Request. Multiples Of Median Cutoffs For AFP Elevations Rodriguez 2.5 Black 2.8 IDD 2.0 Twins 4.5 Abbreviation Definitions IDD - Insulin Dep Diabetes OSBR - Open Spina Bifida Risk For further inquiries contact [employer] [facility] at [phone]. This test was developed and its performance characteristics determined by [employer]. It has not been cleared or approved by the Food and Drug Administration. Performed at: [facility] [address] [place], [place] [id number] Communications Specialist: Prashant Phoenix [facility], Phone: [phone] GEST. AGE ON COLLECTION DATE15.6. weeksNOSD HealthcareGESTAT. AGE BASED ON Ultrasound.NOMS HealthcareComment on above:15.6 on 05/29/2024 Recalculations are not recommended when gestational dating by LMP and ultrasound are within 10 days. INSULIN DEP DIABETESNo.NOMS HealthcareINTERPRETATIONComment.[facility] Comment on above:Interpretation: Screen Negative This result is screen negative for [...] Customer Services to discuss available options. The [place] [employer] recommends amniocentesis be offered to women age 35 and older. MATERNAL AGE AT EDD21.9. yrNOMS HealthcareMULTIPLE GESTATIONNo.[facility] OSBR RISK 1 [id number].NOMS HealthcareRACECaucasian.NOMS HealthcareRESULTSReport. NOMS HealthcareTEST RESULTS:Negative.NOMS BouuqaitymMDNZLT186. lbsNOMS HealthcarePREGNANCY N N ULTRASOUND [id number] 4 15 N 1 Y 249 N N N N N White/ CLINISYNCNOMS HealthcareURETHRITIS/DISCHARGE PLUS VAGINITIS (HTRX)on 05-30-2024 ATOPOBIUM VAGINAE0.000NOMS HealthcareATOPOBIUM VAGINAENot detectedNOMS HealthcareBVAB 2,3 (BACTERIAL VAGINOSIS ASSOCIATED BACTERIA 2, 3); MOBILUNCUS SPP0.000NOMS HealthcareBVAB 2,3 (BACTERIAL VAGINOSIS ASSOCIATED BACTERIA 2, 3); MOBILUNCUS SPPNot detectedNOMS HealthcareCANDIDA ALBICANS, PARAPSILOSIS, TROPICALIS0.000NOMS HealthcareCANDIDA ALBICANS, PARAPSILOSIS, TROPICALISNot detectedNOMS HealthcareCANDIDA GLABRATA0.000NOMS HealthcareCANDIDA GLABRATANot detectedNOMS HealthcareCANDIDA KRUSEI0.000NOMS HealthcareCANDIDA KRUSEINot detectedNOMS HealthcareCHLAMYDIA TRACHOMATIS0.000NOMS HealthcareCHLAMYDIA TRACHOMATISNot detectedNOMS HealthcareGARDNERELLA VAGINALIS0.000[facility] GARDNERELLA VAGINALISNot detectedNOMS HealthcareMEGASPHAERA (TYPES 1, 2)0.000 NOMS HealthcareMEGASPHAERA (TYPES 1, 2)Not detectedNOMS HealthcareMYCOPLASMA GENITALIUM0.000NOMS HealthcareMYCOPLASMA GENITALIUMNot detectedNOMS Healthcare NEISSERIA GONORRHOEAE0.000NOMS HealthcareNEISSERIA GONORRHOEAENot detectedNOMS HealthcareTRICHOMONAS VAGINALIS0.000NOMS HealthcareTRICHOMONAS VAGINALISNot detectedNOSainte Genev[facility] HealthcareCytology Cervical or vaginal smear or scraping studyon 11-21-6423DPRQ HealthcareUrinalysis macro (dipstick) panel (U) on 62-33-9354Vbjcmejhq, UANegativeNegative - 4(70) +++ mg/dLUTAH VALLEY [facility]PITAL Healthcare Blood, UANegativeNegative - 50 Jaguar/mcLUTAH [facility]LEY [facility] HealthcareClarity, UAClearNOSD HealthcareColor, UAAmberNOSD HealthcareGlucose, UANegativeNegative - 2000(110) ++++ mg/dLUTAH VALLEY [facility] HealthcareInterpretation and review of laboratory resultsNormal NOMS HealthcareKetones, UANegativeNegative - 160(16) ++++ mg/dLCrittenton Behavioral Health Leukocytes, UANegativeNegative - 500+++ Lizeth/mcLUTAH VALLEY [facility]OSPITAL HealthcareNitrite, UA NegativeNegative - PositiveUTAH VALLEY HOSPITAL HealthcarepH, UA7.05 - 9NOSD HealthcareProtein, UANegativeNegative - 2000(20) ++++ mg/dLUTAH VALLEY [facility]OSPITAL HealthcareSpec Grav, UA1.0101 - 1.03[facility] HealthcareUrobilinogen, UA0.20.2 - 12 mg/dLSaint Louis University Hospital HealthcareCBC AND AUTO DIFFon 66-52-2448CJAXLHIB BASOPHIL0.2 X10E9/LNormal 0.0-0.2ProMedCentervilleComment on above:Performed By: #### AMBER SOARES, 2276-4 #### [facility] ([id number]) [address] [place], [place] [address]SIZQOCOZ NEUTROPHIL3.1 X10E9/LNormal1.5-6.6ProUniversity Hospitals Geneva Medical CenterComment on above:Performed By: #### AMBER SOARES, 6-4 #### [facility] ([id number]) [address] [place], [place] [address]Fmtbrfqsv/100 WBC (Bld)3.0 %NormalProUniversity Hospitals Geneva Medical Center Comment on above:Performed By: #### AMBER SOARES, 6-4 #### [facility] ([id number]) [address], [address] [place], [place] [address]Bcbcjmuzbrw (Bld) [#/Vol]0.2 10*3/uLNormal0.0-0.4ProAdena Health System HospitalComment on above:Performed By: #### CBCA, FEPR, 6-4 #### [facility] ([id number]) [address], [address] [place], [place] [address]Mnfheshcdye/100 WBC (Bld)3.4 %NormalProAdena Health System Hospital Comment on above:Performed By: #### CBCA, FEPR, 2275-4 #### [facility] ([id number]) [address], [facility] [address] [place], [place] [address]Vgwbyttxgwq distribution width (RBC) [Ratio]13.3 %Normal 11.5-15.0ProAdena Health System HospitalComment on above:Performed By: #### CBCA, FEPR, 2275-4 #### [facility] ([id number]) [address] [facility] [address] [place], [place] [address]Xhtspriykg (Bld) [Volume fraction]40.3 %Gjfpvv60-00HduEozocz [place] HospitalComment on above:Performed By: #### CBCA, FEPR, 2275-4 #### [facility] ([id number]) [address] [facility] [address] [place], [place] [address]Igcubsmyfb (Bld) [Mass/Vol]13.8 g/nOGvjyjs79.7-15.5PCleveland Clinic Mercy [facility] HospitalComment on above:Performed By: #### CBCA, FEPR, 2275-4 #### [facility] ([id number]) [address], [address] [place], [place] [address]Lsoycyvozpe (Bld) [#/Vol]2.1 10*3/uLNormal1.0-3.5ProMedMemorial Health System [facility] HospitalComment on above:Performed By: #### CBCA, FEPR, 2275- #### [facility] ([id number]) [address], [address] [place], [place] [address]Ctnzxmvhoky/100 WBC (Bld)35.1 %NormalDetwiler Memorial Hospital Comment on above:Performed By: #### CBCA, FEPR, 2275- #### [facility] ([id number]) [address], [address] [place], [place] [address]NLF (RBC) [Entitic mass]29.0 obGeaosw67-02TokAiuiym [place] HospitalComment on above:Performed By: #### CBCA, FEPR, 2276-01 #### [facility] ([id number]) [address], [address] [place], [place] [address]KFMT (RBC) [Mass/Vol]34.2 g/qVEtbgxp07-93RefZcvgoj [place] HospitalComment on above:Performed By: #### CBCA, FEPR, 2275- #### [facility] ([id number]) [address], [address] [place], [place] [address]UQW (RBC) [Entitic vol]85 uCBsiicn89-711HhmCepfik [place] HospitalComment on above:Performed By: #### CBCA, FEPR, 2275- #### [facility] ([id number]) [address], [address] [place], [place] [address]Xrgoqoelx (Bld) [#/Vol]0.5 10*3/uLNormal0-0.9ProAdena Health System HospitalComment on above:Performed By: #### CBCA, FEPR, 2275-4 #### [facility] ([id number]) [address], [address] [place], [place] [address]Jxjnbexic/100 WBC (Bld)7.5 %NormalDetwiler Memorial Hospital Comment on above:Performed By: #### CBCA, FEPR, 2276-4 #### [facility] ([id number]) [address], [address] [place], [place] [address]Osdfcrzsehq/100 WBC (Bld)51.0 %NormalDetwiler Memorial Hospital Comment on above:Performed By: #### CBCA, FEPR, 2275-4 #### [facility] ([id number]) [address], [address] [place], [place] [address]Gzhviraq mean volume (Bld) [Entitic vol]8.8 fLNormal7-12 [facility] HospitalComment on above:Performed By: #### CBCA, FEPR, 2275-4 #### [facility] ([id number]) [address], [address] [place], [place] [address]Homfryelp (Bld) [#/Vol]272 10*3/dCOvycxi451-692EqzInpywd [place] HospitalComment on above:Performed By: #### CBCA, FEPR, 2275-4 #### [facility] ([id number]) [address], [address] [place], [place] [address]EYC COUNT4.75 X10E12/LNormal3.80-5.20[facility] Comment on above:Performed By: #### CBCA, FEPR, 2275-4 #### [facility] ([id number]) [address], [address] [place], [place] [address]AFZ (Bld) [#/Vol]6.1 10*3/uLNormal4.0-11.0Detwiler Memorial HospitalComment on above:Performed By: #### CBCA, FEPR, 2275-4 #### [facility] ([id number]) [address], [address] [place], [place] [address]HBU auto differentialon 26-28-3371Byqqumlte (Bld) [#/Vol]0.2 10*3/uLElyria Memorial HospitalBasophils/100 WBC (Bld)3.0 %[facility] Memorial HospitalEosinophils (Bld) [#/Vol]0.2 10*3/uLElyria Memorial HospitalEosinophils/100 WBC (Bld)3.4 %[facility] Memorial HospitalErythrocyte distribution width (RBC) [Ratio]13.3 %11.5 - 15.0 %[facility] Memorial HospitalHematocrit (Bld) [Volume fraction]40.3 %35 - 47 %[facility] HospitalHemoglobin (Bld) [Mass/Vol]13.8 g/dL11.7 - 15.5 g/dLElyria Memorial HospitalLymphocytes (Bld) [#/Vol]2.1 10*3/uL [facility] HospitalLymphocytes/100 WBC (Bld)35.1 %[facility] HospitalMCH (RBC) [Entitic mass]29.0 pg27 - 34 [facility] HospitalMCHC (RBC) [Mass/Vol]34.2 g/dL32 - 36 g/dLElyria Memorial HospitalMCV (RBC) [Entitic vol]85 fL80 - 100 [facility] HospitalMonocytes (Bld) [#/Vol]0.5 10*3/[facility]Laren FlintMonocytes/100 WBC (Bld)7.5 %[facility] Memorial HospitalNeutrophils (Bld) [#/Vol]3.1 10*3/[facility]Laren FlintNeutrophils/100 WBC (Bld)51.0 % [facility] HospitalPlatelet mean volume (Bld) [Entitic vol]8.8 fL7 - 12 fL [facility] HospitalPlatelets (Bld) [#/Vol]272 10*3/[facility] RBC (Bld) [#/Vol]4.75 10*6/[facility]aren FlintWBC corrected for nucl RBC Auto (Bld) [#/Vol]6.1PBucktail Medical CenterFERRITINon 59-97-6765Kwsjjhsf [Mass/Vol]50 ng/tMXjlokb85-528IzjWxzejuDetwiler Memorial Hospital Comment on above:Performed By: #### CBCA, FEPR, 2276-4 #### [facility] ([id number]) [address], [address] [place], [place] [address]Zkfjfxaqcs 58-25-2754Dvjeexee [Mass/Vol]50 ng/mL11 - 307 ng/mL [facility] HospitalFerritin [Mass/Vol]on 02-64-8754XsvIgcysjWadsworth-Rittman Hospital IRON PROFILEon 47-79-3609Lkpi [Mass/Vol]59 ug/wBUaodqt23-638AwaLfmcej [place] HospitalComment on above:Performed By: #### RODGER, FEPR, 2276-4 #### [facility] ([id number]) [address], [address] [place], [place] [address]CVDR CBTQIBS042 ug/qHXoldyb597-579WlqFnhvwz [facility] Comment on above:Performed By: #### RODGER, FEPR, 6-4 #### [facility] ([id number]) [address], [address] [place], [place] [address]RDUL THXDAOTCGT02 % MPYPNLQLDICwiqsy19-60HtbOrnjbe [place] HospitalComment on above:Performed By: #### CBCMiguel, FEPR, 6-4 #### [facility] ([id number]) [address], [address] [place], [place] [address]Idjq and TIBCon 32-57-0654Hnez [Mass/Vol]59 ug/dL50 - 170 ug/dL [facility] SystemIron binding capacity [Mass/Vol]384 ug/dL250 - 425 ug/dL [facility] Health SystemIron saturation [Mass fraction]15ProAspirus Medford Hospital SystemTBH PREG QUANT HCGon 86-83-7463XCJ QUANTITATIVE<1mIU/mL [facility] HealthcareComment on above:5-50 0.2-1 WEEK 50-500 1-2 WEEKS 100-5,000 2-3 WEEKS 500-10,000 3-4 WEEKS 1,000-50,000 4-5 WEEKS 10,000-100,000 5-6 WEEKS 15,000-200,000 6-8 WEEKS 10,000-100,000 2-3 MONTHS [facility] AUTO DIFFon 67-28-3078DHTC #0.1 103/ulNormal0.0-0.1 [facility] HospitalComment on above:Performed By: #### CBC #### [facility] [address] [address] [address] Kristie MarreroBasophils/100 WBC (Bld)0.5 %Normal0.2-2.0[facility] Comment on above:Performed By: #### CBC #### [facility] [address] [address] [address] Kristie Culver #0.2 103/ulNormal0.0-0.7The [facility] HospitalComment on above: Performed By: #### CBC #### [facility] [address] [address] [address] Kristie Deutschosinophils/100 WBC (Bld)2.0 %Normal0.9-7.0[facility] Comment on above:Performed By: #### CBC #### [facility] [address] [address] [address] Kristie Deutschrythrocyte distribution width (RBC) [Ratio]12.0 %Bnulay55.0-15.0 [facility] HospitalComment on above:Performed By: #### CBC #### [facility] [address] [address] [address] Kristie MarreroHematocrit (Bld) [Volume fraction]38.0 %Tislam81.0-48.0[facility] HospitalComment on above:Performed By: #### CBC #### [facility] [address] [address] [address] Kristie MarreroHemoglobin (Bld) [Mass/Vol]13.3 g/oIIdsrhm27.0-16.0[facility] HospitalComment on above:Performed By: #### CBC #### [facility] [address] [address] [address] Kristie Dupree #0.04 10e3/ulCritically high0.00-0.03The [facility] Comment on above:Performed By: #### CBC #### [facility] [address] [address] [address] Kristie Dupree %0.4 %Normal0.0-0.5The [facility] HospitalComment on above: Performed By: #### CBC #### [facility] [address] [address] [address] Kristie Hilario #1.3 103/ulNormal1.2-3.8The [facility] HospitalComment on above:Performed By: #### CBC #### [facility] [address] [place] [address] Dr. Kristie Guidohocytes/100 WBC (Bld)12.3 %Critically low20.5-60.0The [facility] HospitalComment on above:Performed By: #### CBC #### [facility] [address] [place] [address] Dr. Kristie Escobedo DIFF REQNONormalThe [facility] HospitalComment on above: Performed By: #### CBC #### [facility] [address] [place] [address] Dr. Kristie Mcdonald (RBC) [Entitic mass]29.2 bbXnjzew41.7-34.0The [facility] HospitalComment on above:Performed By: #### CBC #### [facility] [address] [place] [address] Dr. Kristie Godinez (RBC) [Mass/Vol]35.0 g/wOVzszcg84.9-35.2The [facility] HospitalComment on above:Performed By: #### CBC #### [facility] [address] [place] [address] Dr. Kristie Bernal (RBC) [Entitic vol]83.3 hTJllzlp41.0-99.0The [facility] HospitalComment on above:Performed By: #### CBC #### [facility] [address] [place] [address] Dr. Kristie Martines #0.7 103/ulNormal0.3-0.8The [facility] HospitalComment on above:Performed By: #### CBC #### [facility] [address] [place] [address] Dr. Kristie Chambersocytes/100 WBC (Bld)7.0 %Normal1.7-12.0The [facility] Comment on above:Performed By: #### CBC #### [facility] [address] [place] [address] Dr. Kristie Diana #8.2 103/ulCritically high1.4-6.5The [facility] Comment on above:Performed By: #### CBC #### [facility] [address] [place] [address] Dr. Kristie Cumminsutrophils/100 WBC (Bld)77.8 %Critically high43.0-75.0The [facility] HospitalComment on above:Performed By: #### CBC #### [facility] [address] [place] [address] Dr. Kristie Carrascolet mean volume (Bld) [Entitic vol]9.5 fLNormal9.5-13.5The [facility] HospitalComment on above:Performed By: #### CBC #### [facility] [address] [place] [address] Dr. Kristie MarreroPLT265 103/tgOgnwsc533-133Cio [facility] HospitalComment on above: Performed By: #### CBC #### [facility] [address] [place] [address] Dr. Kristie MarreroRBC4.56 106/ulNormal4.20-5.40The [facility] HospitalComment on above:Performed By: #### CBC #### [facility] [address] [place] [address] Dr. Kristie MarreroWBC10.5 103/ulNormal4.0-11.0The [facility] HospitalComment on above:Performed By: #### CBC #### [facility] [address] [place] [address] Dr. Kristie Cobb HCG QUALon 06-28-4811MMCZTFXPT, QUALNegativeNormalNEGATIVE The [facility] HospitalComment on above:Performed By: #### PREG #### [facility] [address] [place] [address] Dr. Kristie MarreroCHLAMYDIA/GONOCOCCUS RADHA (SWAB/URINE/PAPon 84-35-3303Wzrdyvywr trachomatis, NAANegativeNormalNegativeThe [facility] HospitalComment on above: Performed By: #### CT/NGNA #### [facility] [address] [place] [address] Dr. Kristie MarreroNeisseria gonorrhoeae, NAANegativeNormalNegativeThe [facility] HospitalComment on above:Performed By: #### CT/NGNA #### [facility] [address] [place] [address] Dr. Kristie MarreroVAGINITIS/VAGINOSIS DNA PROBEon 58-65-7887Foxtsxq speciesNegative NormalNegativeThe [facility] HospitalComment on above:Performed By: #### VAGINT #### [facility] [address] [place] [address] Dr. Kristie MarreroGardnerellmiguel vaginalisPositiveAbnormalNegativeThe [facility] HospitalComment on above:Performed By: #### VAGINT #### [facility] [address] [place] [address] Dr. Kristie MarreroTrichomonas vaginalisNegativeNormalNegativeGrant Hospital Comment on above:Performed By: #### VAGINT #### [facility] [address] [place] [address] Dr. Kristie MarreroCovid-19 PCR (CVDTBH)on 65-36-8963CJNG-CoV-2 (COVID-19) RNA RADHA+probe Ql (Unsp spec)DetectedCritically abnormalNOT DETECTEDThe [facility] HospitalComment on above:Result Comment: This test is not yet approved or cleared by the [place] FDA. When there are no FDA-approved or cleared tests available, and other criteria are met, FDA can make tests available under an emergency access mechanism called an Emergency Use Authorization (EUA). The EUA for this test is supported by the [place] of Health and Human Service's (HHS's) declaration [...] no longer be used). Performed By: #### CVDTB #### [facility] [address] [place] [address] Dr. Kristie Marrero Vital Signs Date TimeVital SignValuePerforming RyuvryhrrEahuyuop97-24-7346 10:47-0400Body mass index (BMI) [Ratio]42.91 kg/d5Geoco Ayleen DO Work Phone: [phone] [place], [place] [address]Augwndmvca80-17-5870 10:47-0400Body .29 kgCorey Ayleen DO Work Phone: [phone] [place], [place] [address]Fdkygyxrcj33-43-7897 10:47-0400Diastolic blood qszophsb62 mm[Hg]Harry Ayleen DO Work Phone: [phone] [place], [place] [address]Wdjigucmpt76-56-2850 10:47-0400Systolic blood zdywfret695 mm[Hg]Harry Ayleen [employer] Work Phone: [phone] [place], [place] [address]Jbehctpmwj02-85-4939 10:08-0400Body mass index (BMI) [Ratio]42.52 kg/g0Pvnve Ayleen DO Work Phone: [phone] [place], [place] [address]Xqvyjmwbxk07-47-5989 10:08-0400Body gvgodw432.15 kgCorey Ayleen DO Work Phone: [phone])[facility] [place], [place] [address]Rjssjsbkde95-57-6410 10:08-0400Diastolic blood gejqmxly62 mm[Hg]Harry Ayleen DO Work Phone: [phone] [place], [place] [address]Wtbcuzdeft23-59-7756 10:08-0400Systolic blood mm[Hg]Harry Ayleen [employer] Work Phone: [phone] [place], [place] [address]Fyofcdjtqx82-82-1824 14:52-0500Body mass index (BMI) [Ratio]39.33 kg/m2Alyssa Bazan PA Work Phone: [facility] HealthGdfqkupwic23-35-5904 14:52-0500Body pizdpx254.91 kgAmy Beni PA Work Phone: [facility] HealthKdjpchlscn49-54-0227 14:52-0500Diastolic blood hxhwfops04 mm[Hg]Alyssa Bazan PA Work Phone: [phone]-[facility] HealthFjtginydxm27-03-7960 14:52-0500Systolic blood wqiyasha001 mm[Hg]Alyssa Bazan PA Work Phone: [phone]-[facility] HealthYavyvqznvw65-35-1656 13:21-0500Body mass index (BMI) [Ratio]38.86 kg/m2Amy Beni PA Work Phone: [phone]-[facility] SystemCrittenton Behavioral HealthMtjefvhyzy39-85-7867 13:21-0500Body rpprto815.55 kgAlyssa Bazan PA Work Phone: [phone]-[facility] HealthUwdczjfgxg48-80-7598 13:21-0500Diastolic blood gtmgudky32 mm[Hg]Alyssa Bazan PA Work Phone: [phone]-[facility] HealthJlenuekzpr92-27-6147 13:21-0500Systolic blood ueuootmj293 mm[Hg]Alyssa Bazan PA Work Phone: [phone] [place], [place] [address]Phaxmcgxkn41-89-2409 11:24-0500Body mass index (BMI) [Ratio]41.04 kg/g4Oplxg Ayleen DO Work Phone: [phone] [place], [place] [address]Jyiarcfpgk86-32-8227 11:24-0500Body raozsp687.84 kgCorey Ayleen DO Work Phone: [phone]-[facility] HealthAbhpmusfli99-88-4871 11:24-0500Diastolic blood gkyjwzzf50 mm[Hg]Harry Ayleen DO Work Phone: [phone] [place], [place] [address]Vnyufglmha94-95-6698 11:24-0500Systolic blood bkcvmeyb501 mm[Hg]Harry Ayleen DO Work Phone: [phone]-[facility] HealthVshsdakbcc01-54-3075 13:20-0500Body mass index (BMI) [Ratio]41 kg/m2Amy Savannah MAEGAN Work Phone: [facility] HealthFvgkhfgquo16-70-1108 13:20-0500Body nizbxu055.75 kgAlyssa Bazan MAEGAN Work Phone: [facility] HealthVbcxjzvrww40-24-5977 13:20-0500Diastolic blood sdptecip23 mm[Hg]Alyssa Bazan PA Work Phone: [facility] HealthMjythqpchn41-26-7072 13:20-0500Systolic blood huvicykz152 mm[Hg]Alyssa Bazan PA Work Phone: [phone]-[facility] HealthZitpvodcop54-68-3572 14:14-0500Body mass index (BMI) [Ratio]41.25 kg/o1Lzfzn Ayleen DO Work Phone: [phone]-[facility] SystemCr[facility] HealthJmcvyqfgmu32-32-9792 14:14-0500Body ifooko734.48 kgCorey Ayleen DO Work Phone: [phone]-[facility] HealthBctunchcvu85-00-3057 14:14-0500Diastolic blood jspitxxq41 mm[Hg]Harry Ayleen DO Work Phone: [phone]-[facility] System7[facility] HealthNnlguvqncp17-98-0926 14:14-0500Systolic blood fbchfdza002 mm[Hg]Harry Ayleen DO Work Phone: [phone]-[facility] HealthIkkbklapyi47-47-8800 14:53-0500Body mass index (BMI) [Ratio]41.21 kg/e2Lypix Ayleen DO Work Phone: [phone]-[facility] HealthZclzeiwsps95-03-3769 14:53-0500Body bvixnp105.35 kgCorey Ayleen DO Work Phone: [phone]-[facility] HealthIasqyrxwmm69-56-0663 14:53-0500Diastolic blood khjvitfg18 mm[Hg]Harry Ayleen DO Work Phone: [phone]-[facility] HealthIhhsetwzsn52-18-6969 14:53-0500Systolic blood tcvteada852 mm[Hg]Harry Ayleen DO Work Phone: [phone]-[facility] HealthQrgzyoqnzy78-25-6291 14:03-0500Body mass index (BMI) [Ratio]40.43 kg/m2Amy Beni PA Work Phone: [facility] HealthVutjbwssxj59-98-4984 14:03-0500Body xwemjq717.08 kgAmy Savannah PA Work Phone: [facility] HealthYbuqgmdggf27-50-4749 14:03-0500Diastolic blood ppooqnwe55 mm[Hg]Alyssa Beni PA Work Phone: [facility] HealthNftbmpxatl68-39-0723 14:03-0500Systolic blood oiupbibo422 mm[Hg]Alyssa Bazan PA Work Phone: [phone]-[facility] HealthHcqtorwaiy37-35-0189 10:46-0500Body mass index (BMI) [Ratio]40.53 kg/f5Epyfn Ayleen DO Work Phone: [facility] HealthGbexzlkmfr74-27-5675 10:46-0500Body lxnemy175.39 kgCorey Ayleen DO Work Phone: [phone]-[facility] HealthIvjggyywhn65-16-6487 10:46-0500Diastolic blood luemvygd82 mm[Hg]Harry Ayleen DO Work Phone: [phone]-[facility] HealthYzslieocbo81-40-4107 10:46-0500Systolic blood dizmetvp440 mm[Hg]Harry Ayleen DO Work Phone: [phone]-[facility] HealthNrbgyiovzq20-89-8136 10:28-0500Body mass index (BMI) [Ratio]41.16 kg/m2Amy Savannah PA Work Phone: [place] [address]Bgzknkkfhg32-65-2563 10:28-0500Body lmfwjy468.2 kgAmy Beni PA Work Phone: [place] [address]Nmblcsqkxg29-58-6942 10:28-0500Diastolic blood mmpnemjo00 mm[Hg]Alyssa Bazan PA Work Phone: [phone]-[facility]2[place] [address]Thxzezsxck64-76-2510 10:28-0500Systolic blood thjqdomw028 mm[Hg]Alyssa Bazan PA Work Phone: [facility] HealthUdewvcmjtw31-64-4936 09:39-0400Body mass index (BMI) [Ratio]40.41 kg/t5Ppwcu Ayleen DO Work Phone: [facility] HealthTrvzfnbkui44-17-7356 09:39-0400Body .03 kgCoremark Hannao DO Work Phone: [facility] HealthWchuiwqhuv06-02-5871 09:39-0400Diastolic blood yiuqfwbl03 mm[Hg]Harrymark Hannao DO Work Phone: [facility] HealthXlikyspzth92-93-3811 09:39-0400Systolic blood fywezroy025 mm[Hg]Harry Hannao DO Work Phone: [facility] HealthRlfmtgtclq91-11-8582 11:36-0400Body axjzni602.2 cmYimi Nicholsng DO Work Phone: [facility] Lsomvw91-52-0963 11:36-0400Body mass index (BMI) [Ratio]39.28 kg/u9MxooqpYimi Nicholsng DO Work Phone: [facility]09-25-2024 11:36-0400Body bzaqulnnwow96.1 [degF]Yimi Barragan DO Work Phone: [facility] Imrdju07-12-2272 11:36-0400Body uyjzuw946.76 kgYimi Nicholsng DO Work Phone: [facility]09-25-2024 11:36-0400Diastolic blood qyvvgyxf03 mm[Hg]Yimi Nichlosng DO Work Phone: [facility]09-25-2024 11:36-0400Heart rate 85 /minDennis Simoneng DO Work Phone: [facility]09-25-2024 11:36-8663UjL6% (BldA) [Mass fraction]97 %Yimi Nicholsng DO Work Phone: [facility]09-25-2024 11:36-0400Systolic blood mm[Hg]Yimi Nicholsng DO Work Phone: [facility]09-19-2024 15:06-0400Body mass index (BMI) [Ratio]39.39 kg/m2Alyssa Bazan PA Work Phone: [facility] HealthRloqtgpfnn08-92-8472 15:06-0400Body acomyo271.08 kgAlyssa Bazan PA Work Phone: [facility] HealthRgnnyoqmiq80-39-9452 15:06-0400Diastolic blood genkhrsi16 mm[Hg]Alyssa Bazan PA Work Phone: [facility] HealthScieuolxjq07-82-6281 15:06-0400Systolic blood mm[Hg]Alyssa Bazan PA Work Phone: [facility] HealthCfdmiutscz32-46-0552 11:14-0400Body mass index (BMI) [Ratio]39 kg/b5Fepix Ayleen DO Work Phone: [facility] HealthFiqqvxuynr91-63-0941 11:14-0400Body wcaxhb178.95 kgCorey Ayleen DO Work Phone: [facility] HealthWchoaebfrt23-98-0419 11:14-0400Diastolic blood auopfmyu13 mm[Hg]Harry Ayleen DO Work Phone: [facility] HealthDnswfxzwfk69-92-8070 11:14-0400Systolic blood kudwinwa369 mm[Hg]Harry Ayleen DO Work Phone: [facility] HealthTtcuuhjmwz85-08-6008 09:25-0400Body edxhwp658.2 cmBrvaleria Katarzyna ELECTRONIC ASSEMBLER GROUP LEADER-VP OUTCOMES Work Phone: [facility]05-10-2024 09:25-0400Body mass index (BMI) [Ratio]38.17 kg/k1Hiirqc Katarzyna ELECTRONIC ASSEMBLER GROUP LEADER-VP OUTCOMES Work Phone: [facility] HospitalCostume[facility] HospitalBadtjn01-69-9789 09:25-0400Body aeqemcmhnzc28.29 [degF]Nivia Katarzyna ELECTRONIC ASSEMBLER GROUP LEADER-VP OUTCOMES Work Phone: [facility]05-10-2024 09:25-0400Body .54 kgBrvaleria Katarzyna ELECTRONIC ASSEMBLER GROUP LEADER-VP OUTCOMES Work Phone: [facility]05-10-2024 09:25-0400Diastolic blood crjldifz94 mm[Hg]Nivia Colón ELECTRONIC ASSEMBLER GROUP LEADER-VP OUTCOMES Work Phone: [facility]05-10-2024 09:25-0400Heart rate 74 /minNivia Colón ELECTRONIC ASSEMBLER GROUP LEADER-VP OUTCOMES Work Phone: [facility]05-10-2024 09:25-0400 Respiratory rate18 /minNivia Colón ELECTRONIC ASSEMBLER GROUP LEADER-VP OUTCOMES Work Phone: [facility]05-10-2024 09:25-3069JxO1% (BldA) [Mass fraction]97 %Nivia Colón ELECTRONIC ASSEMBLER GROUP LEADER-VP OUTCOMES Work Phone: [facility]05-10-2024 09:25-0400Systolic blood dlhpfyfj448 mm[Hg]Nivia Colón ELECTRONIC ASSEMBLER GROUP LEADER-VP OUTCOMES Work Phone: [facility]03-12-2024 15:22-0400Body paxvqj943.2 cmSummer Davalos ELECTRONIC ASSEMBLER GROUP LEADER-[employer] Work Phone: [facility]03-12-2024 15:22-0400Body mass index (BMI) [Ratio]38.28 kg/m2Summer Davalos ELECTRONIC ASSEMBLER GROUP LEADER-[employer]ER [employer]ATIC Work Phone: [facility]03-12-2024 15:22-0400Body utpcjsslxzz02.29 [degF]Summer Davalos ELECTRONIC ASSEMBLER GROUP LEADER-[employer] PRESSER [employer]OMATIC Work Phone: [facility]03-12-2024 15:22-0400Body mlkals092.86 kgSummer Davalos ELECTRONIC ASSEMBLER GROUP LEADER-[employer] PR[employer]ER [employer]ATIC Work Phone: [facility]03-12-2024 15:22-0400Diastolic blood tixkrako36 mm[Hg]Summer Davalos ELECTRONIC ASSEMBLER GROUP LEADER-[employer] PR[employer]ER [employer]ATIC Work Phone: [facility]03-12-2024 15:22-0400Heart rate 82 /minSummer Davalos ELECTRONIC ASSEMBLER GROUP LEADER-[employer] PR[employer]ER [employer]OMATIC Work Phone: [facility]03-12-2024 15:-0400 Respiratory rate18 /minSummer Davalos ELECTRONIC ASSEMBLER GROUP LEADER-P[employer] PRESSER AUTOMATIC Work Phone: [facility]03-12-2024 15:5263QoZ4% (BldA) [Mass fraction]97 %Summer Davalos ELECTRONIC ASSEMBLER GROUP LEADER-[employer] PRESSER [employer]OMATIC Work Phone: [facility]03-12-2024 15:Systolic blood mm[Hg]Summer Davalos ELECTRONIC ASSEMBLER GROUP LEADER-[employer]ER [employer]ATIC Work Phone: [facility] Encounters Encounter DateEncounter TypeCare ProviderFacilityStart: 07-04-2025 End: 18-83-4319Ogifguygy encounterBrittney Rome [facility] Medicine - Family MedicineComment on above:AppointmentStart: 06-28-2025 End: 14-38-8363Wzvyrmibb department patient visitSamaritan North Health Centertart: 06-27-2025 End: 98-40-0091Yytphgiti Result EncounterCorey Ayleen DO Work Phone: noms External Department UnsolicitedStart: 06-27-2025 End: 05-16-1691Jtkjzimn Result EncounterCorey Ayleen DO Work Phone: noms External Department UnsolicitedStart: 06-27-2025 End: 87-14-1500Jxwjvety Result EncounterCorey Ayleen DO Work Phone: noms External Department UnsolicitedStart: 06-27-2025 End: 80-51-5269Strhlcq encounter procedureCorey Ayleen DO Work Phone: [facility] Work Phone: Start: 06-27-2025 End: 90-66-7502Unpwaikt preventive med est patient 18-39 yrsCorey Ayleen DO Work Phone: [facility] [place] OBGYNComment on above:Pre-op examination; Request for sterilization; Well woman exam with routine gynecological exam; Exposure to STD; Vaginal discharge; Upper back painStart: 06-27-2025 End: 61-55-1206Dofyhmysnahqs examination doneCorey Ayleen DO Work Phone: [facility] HealthcareStart: 06-27-2025 End: 50-08-5116otdwdupahgUQBGX FAZIONot AvailableStart: 05-27-2025 End: 21-53-2212Uhiotm flowsheetCorey Ayleen DO Work Phone: NO [facility]en OBGYNStart: 05-27-2025 End: 77-53-2476Nuvmjz flowsheetCorey Ayleen DO Work Phone: NOCU Ruben OBGYNStart: 05-27-2025 End: 87-26-0159[place] outpatient visit 15 minutesCorey Ayleen DO Work Phone: noms Ruben OBGYNComment on above:Sterilization consultStart: 05-27-2025 End: 81-94-6280rhynosucqrWXAXV FAZIONot AvailableStart: 04-04-2025 End: 43-04-1321Bezpbfqwu department patient visitBRCoshocton Regional Medical Centertart: 02-08-2025 End: 84-57-7712Ymapnajcs department patient visitBRCoshocton Regional Medical Centertart: 12-17-2024 End: 87-14-2022rqwexxnyckZRV RAMEYNot AvailableStart: 12-12-2024 End: 65-47-1090Fjcham follow up visit related to original Marcelle ISSA Work Phone: noms BCP OBComment on above:Postoperative follow-up Start: 12-12-2024 End: 00-39-2500zdwbacfjbvFMZ RAMEYNot AvailableStart: 12-12-2024 End: 81-22-0006Tqbdva Benoit ISSA Work Phone: [facility] BCP OBStart: 12-12-2024 End: 12-12-7342Dcnerq Benoit ISSA Work Phone: [facility] BCP OBStart: 11-15-2024 End: 39-55-2675Ynffhs andreaSoni ISSA Work Phone: [facility] BCP OBStart: 11-15-2024 End: 98-16-7866Mzsliz andreaSoni ISSA Work Phone: [facility] BCP OBStart: 11-15-2024 End: 51-85-3648Mloryk follow up visit related to original sungAlyssa ISSA Work Phone: [facility] BCP OBComment on above:Postoperative follow-up (Primary Dx)Start: 11-15-2024 End: 73-14-0117gcvkuqhrcoZQS Latia AvailableStart: 11-10-2024 End: 40-71-5368Hnawigkxy Result EncounterCorey Ayleen DO Work Phone: [facility] External Department UnsolicitedStart: 11-10-2024 End: 83-11-0898Gubxlnuwt Result EncounterCorey Ayleen DO Work Phone: [facility] External Department UnsolicitedStart: 11-09-2024 End: 93-32-0730Yftliwwsl Result EncounterCorey Ayleen DO Work Phone: [facility] External Department UnsolicitedStart: 11-09-2024 End: 03-73-6637Iviufilze Result EncounterCorey Ayleen DO Work Phone: [facility] External Department UnsolicitedStart: 11-08-2024 End: 74-59-0567Tzwuli flowsheetCorey Ayleen DO Work Phone: [facility] BCP OBStart: 11-08-2024 End: 56-15-1656Efrvqv flowsheetCorey Ayleen DO Work Phone: [facility] BCP OBStart: 11-08-2024 End: 38-14-6887ljajjhyfcqZYWRH FAZIONot AvailableStart: 11-08-2024 End: 22-52-6736Gtfficnh flow sheetCorey Ayleen DO Work Phone: [facility] BCP OBComment on above:Third trimester ; 38 weeks gestation of pregnancyStart: 10-31-2024 End: 90-07-8094Rpqalp flowsheetAlyssa ISSA Work Phone: [facility] BCP OBStart: 10-31-2024 End: 48-86-2219Xijtmf flowsheetAmy Beni ISSA Work Phone: [facility] BCP OBStart: 10-31-2024 End: 78-88-4337Vslvnwoi flow sheetAmy Beni ISSA Work Phone: [facility] BCP OBComment on above:Third trimester ; 37 weeks gestation of pregnancyStart: 10-31-2024 End: 94-09-3906sdvoyekfstWNI Latia AvailableStart: 10-22-2024 End: 55-07-5615Tzrcri flowsheetCorey Ayleen DO Work Phone: [facility] BCP OBStart: 10-22-2024 End: 85-52-5466Yutbpz flowsheetCorey Ayleen DO Work Phone: [facility] BCP OBStart: 10-22-2024 End: 88-25-1505Wvdfwrrea Result EncounterCorey Ayleen DO Work Phone: [facility] External Department UnsolicitedStart: 10-22-2024 End: 01-62-8354Hihkucwq flow sheetCorey Ayleen DO Work Phone: [facility] BCP OBComment on above:36 weeks gestation of ; Third trimester pregnancyStart: 10-22-2024 End: 62-08-2343uwpbazgisoHQIMN FAZIONot AvailableStart: 10-15-2024 End: 17-69-8284Ajfmvjgf flow sheetCorey Ayleen DO Work Phone: [facility] BCP OBComment on above:Third trimester ; 35 weeks gestation of pregnancyStart: 10-15-2024 End: 08-90-9587mcsdqqjpmjVWGHU FAZIONot AvailableStart: 10-15-2024 End: 14-91-4750Eycoxh flowsheetCorey Ayleen DO Work Phone: [facility] BCP OBStart: 10-15-2024 End: 72-52-2879Izdlfn flowsheetCorey Ayleen DO Work Phone: [facility] BCP OBStart: 09-25-2024 End: 29-27-7212Ohsank flowsheetAlyssa ISSA Work Phone: [facility] BCP OBStart: 09-25-2024 End: 65-27-7183Ezsdch flowsheetAmy Beni ISSA Work Phone: [facility] BCP OBStart: 09-25-2024 End: 58-76-9112Bhzgay outpatient visit 15 minutesAmy Beni ISSA Work Phone: [facility] BCP OBComment on above:32 weeks gestation of ; Third trimester ; Anxiety with depressionStart: 09-25-2024 End: 48-18-5092unzpuqplrwOJD RAMEYNot AvailableStart: 09-11-2024 End: 03-85-5811Iiszpj flowsheetCorey Ayleen DO Work Phone: [facility] BCP OBStart: 09-11-2024 End: 79-77-2346[place] flowsheetCorey Ayleen DO Work Phone: [facility] BCP OBStart: 09-11-2024 End: 16-06-6658Vhayofzq flow sheetCorey Ayleen DO Work Phone: [facility] BCP OBComment on above:Third trimester ; 30 weeks gestation of pregnancyStart: 09-11-2024 End: 38-84-0287hcowwhwwhwHWORL FAZIONot AvailableStart: 08-28-2024 End: 32-93-4919Nvcjdh flowsheetAlyssa ISSA Work Phone: [facility] BCP OBStart: 08-28-2024 End: 10-98-1155Hupehh flowsheetAlyssa ISSA Work Phone: [facility] BCP OBStart: 08-28-2024 End: 32-40-6868Guveverv flow sheetAmy Beni ISSA Work Phone: [facility] BCP OBComment on above:Third trimester ; 28 weeks gestation of ; size inconsistent with datesStart: 08-28-2024 End: 26-10-2558uricglidvuEJA Latia AvailableStart: 07-30-2024 End: 53-42-5142Waufws flowsheetCorey Ayleen DO Work Phone: [facility] BCP OBStart: 07-30-2024 End: 35-12-0204Mplmcz flowsheetCorey Ayleen DO Work Phone: [facility] BCP OBStart: 07-30-2024 End: 26-59-3137Pllvmq outpatient visit 15 minutesCorey Ayleen DO Work Phone: [facility] BCP OBComment on above:24 weeks gestation of ; Diabetes mellitus screeningStart: 07-30-2024 End: 99-61-0986ipwkjdwwrzWXAUY FAZIONot AvailableStart: 07-04-2024 End: 46-12-5645Zcjcay outpatient visit 15 minutesAd[facility] DO Work Phone: [facility] Physicians Internal Medicine - Family MedicineComment on above:Nasal congestion (Primary Dx); Viral URIStart: 07-04-2024 End: 22-94-3405vtwtaienqtNJRPYZHaxtun Hospital District Ambulatory PPGStart: 06-28-2024 End: 32-17-9763Gkorza outpatient visit 15 minutesAlyssa ISSA Work Phone: [facility] BCP OBComment on above:Second trimester Start: 06-28-2024 End: 44-19-2743Nedjce Benoit ISSA Work Phone: [facility] BCP OBStart: 06-28-2024 End: 34-82-0197Vvqtos Benoit ISSA Work Phone: [facility] BCP OBStart: 05-29-2024 End: 31-65-7990Brabzj flowsheetCorey Ayleen DO Work Phone: [facility] BCP OBStart: 05-29-2024 End: 95-69-0397Kiexkj flowsheetCorey Ayleen DO Work Phone: [facility] BCP OBStart: 05-29-2024 End: 18-64-0597Bcefzvqlp Result EncounterCorey Ayleen DO Work Phone: noms External Department UnsolicitedStart: 05-29-2024 End: 43-18-6471Xgdaolfk Result EncounterCorey Ayleen DO Work Phone: n[facility] External Department UnsolicitedStart: 05-29-2024 End: 48-52-7697Plghbfs encounter procedureCorey Ayleen DO Work Phone: noms HealthcareStart: 05-29-2024 End: 35-42-5465Rtospiwv preventive med est patient 18-39 yrsCorey Ayleen DO Work Phone: [facility] OBComment on above:15 weeks gestation of ; Screening, , for anatomic survey; Well woman exam with routine gynecological exam; Exposure to STD; Vaginal dischargeStart: 02-17-2024 End: 94-40-9622hffyzqbizrTQGFOLBaptist Memorial Hospital for Women HospitalStart: 02-17-2024 End: 95-59-0308Fvvoxn outpatient visit 15 minutesNivia Colón ELECTRONIC ASSEMBLER GROUP LEADER-VP OUTCOMES Work Phone: [facility] Internal Medicine - Family MedicineComment on above:Miscarriage (Primary Dx)Start: 02-17-2024 End: 13-32-0278jiuvxpsbjsOUUBXDParnassus campus Ambulatory PPGStart: 12-20-2023 End: 35-78-1829Gjqdcz outpatient visit 15 minutesSummer Davalos ELECTRONIC ASSEMBLER GROUP LEADER-[employer]ER [employer]AT[employer] Work Phone: [facility] Internal Medicine - Family MedicineComment on above:PTSD (post-traumatic stress disorder) (Primary Dx); General counseling and advice for contraceptive management; Class 2 obesity due to excess calories without serious comorbidity with body mass index (BMI) of 37.0 to 37.9 in adultStart: 12-20-2023 End: 20-82-9215zanecjiyteHKKPRidgeview [facility] Ambulatory PPGStart: 15-30-2964Kyuykwrae Result EncounterCorey Ayleen DO Work Phone: noLE External Department UnsolicitedStart: 11-21-2023 Clinisync Result EncounterCorey Ayleen DO Work Phone: noms External Department UnsolicitedStart: 01-19-2023 End: 15-84-9852xvfggtadjcMY DOCTOR MISCFacility:N0Bemad: 11-16-2022 End: 94-26-2836bslcevyzspSK BEATA THOMSON .Facility:I6Xjrqn: 05-07-2022 End: 15-75-1226aquckvzxqrDQ SUKHDEEP HERNÁNDEZ .Facility: Procedures DateProcedureProcedure DetailPerforming ClinicianStart: 80-50-3941XCWJPFKXP VAGINITIS (HTRX)Harry Ayleen DO Work Phone: Start: 65-18-6080WDA,APTIMA HPV,AGE GDLNCorey Ayleen DO Work Phone: Start: 64-31-9954AFQ CBC WITH AUTO DIFFCorey Ayleen DO Work Phone: Start: 68-05-2381XFD CBC WITH AUTO DIFFCorey Ayleen DO Work Phone: Start: 59-57-4191Xrcvj dip stick/tablet rgnt non-auto w/o micrscpCorey Ayleen DO Work Phone: Start: 01-88-3964Vnjzr dip stick/tablet rgnt non-auto w/o micrscpAmy Beni PA Work Phone: Start: 76-74-6256Lnskk dip stick/tablet rgnt non-auto w/o micrscpCorey Ayleen DO Work Phone: Start: 63-29-8864VDZ MISCELLANEOUS TESTCorey Ayleen DO Work Phone: Start: 24-41-0552Awiwn dip stick/tablet rgnt non-auto w/o micrscpCorey Ayleen DO Work Phone: Start: 32-47-3862Cfafm dip stick/tablet rgnt non-auto w/o micrscpCorey Ayleen DO Work Phone: Start: 36-34-7526Qxjks dip stick/tablet rgnt non-auto w/o micrscpCorey Ayleen DO Work Phone: Start: 55-88-0145Vhroe dip stick/tablet rgnt non-auto w/o micrscpAmy Beni ISSA Work Phone: Start: 24-38-6266Qmczh dip stick/tablet rgnt non-auto w/o micrscpCorey Ayleen DO Work Phone: Start: 84-36-5152LTDW INFLUENZA A/INFLUENZA B/SARS-COV-2 VERITORDenjose Oharanasim DO Work Phone: Start: 12-58-5401Mbqic depression screening assessment Yimi [facility]arawayne [facility] DO Work Phone: Start: 48-99-0777Rihom dip stick/tablet rgnt non-auto w/o micrscpAmy Beni ISSA Work Phone: Start: 58-77-6472LBL, SERUM, OPEN SPINA BIFIDACorey Ayleen DO Work Phone: Start: 26-45-4895Flzcc dip stick/tablet rgnt non-auto w/o micrscpCorey Ayleen DO Work Phone: Start: 09-51-7168Gcupjmwzhgs observation [Identifier] in Cervix by Cyto stainBrittney Rome CMAStart: 43-78-2113Fvft cerv/vag auto thin layer prep mnl screenCorey Ayleen DO Work Phone: Start: 63-72-8081FBXUDATXRY/DISCHARGE PLUS VAGINITIS (HTRX)Harry Ayleen DO Work Phone: Start: 01-17-5561Cdpto depression screening assessment Nivia Colón ELECTRONIC ASSEMBLER GROUP LEADER-VP OUTCOMES Work Phone: Start: 42-57-6133Asbrb depression screening assessment Summer Leonemma ELECTRONIC ASSEMBLER GROUP LEADER-[employer]ER [employer] Work Phone: Start: 45-83-2366ALB PREG QUANT HCGCorey Ayleen DO Work Phone: Start: 74-40-0958Tuwdarvmvpl observation [Identifier] in Cervix by Cyto stainSummer Davalos ELECTRONIC ASSEMBLER GROUP LEADER-[employer]ER [employer] Work Phone: Plan of Treatment DateCare ActivityDetailAuthorStart: 70-84-3382FTjS,Tdap and Td Vaccines (8 - Td or Tdap)DTaP,Tdap and Td Vaccines (8 - Td or Tdap)[facility] SystemStart: 96-43-7169VAdP,Tdap and Td Vaccines (7 - Td or Tdap)DTaP,Tdap and Td Vaccines (7 - Td or Tdap)[facility] SystemStart: 65-53-4668Euvruzgsu for malignant neoplasm of cervixPap SmearThe Jewish Hospital SystemStart: 06-60-8802Ooiqa BMI ScreeningAdult BMI ScreeningProMedica Health SystemStart: 02-84-4781Huwygay ScreeningTobacco ScreeningToledo Hospitalca [facility] SystemStart: 70-85-7809Xtusvvboq for malignant neoplasm of cervixPap SmearToledo Hospitalca [facility] SystemStart: 08-12-2025 End: 88-39-9593Fvjnvai encounter wwkiwcdfh06/03/2025 8:30 AM EST Office Visit ADRIAN MORGAN [address] [place] [id number] Alyssa Bazan PA [address] [place] [address] ADRIAN HUANGtart: 89-74-4612Xmlgh BMI ScreeningAdult BMI ScreeningToledo Hospitalca [facility] SystemStart: 07-04-2025 Depression ScreeningDepression ScreeningToledo Hospitalca [facility] SystemStart: 07-04-2025 Tobacco ScreeningTobacco ScreeningToledo Hospitalca [facility] SystemStart: 06-27-2025 End: 39-77-6962Pbcvhkj encounter wndzoscps47/18/2025 10:40 AM EDT Procedure Visit NOMEmma MORGAN [address], [id number] Harry Abbais, DO [address] [place], [place] [id number] NOMEmam [place] OBGYNStart: 06-10-2025 Influenza vaccinationInfluenza Vaccine (#1)[facility] HealthcareStart: 05-27-2025 End: 72-96-0462Rmmfamj encounter dortioshv13/18/2025 10:10 AM EDT Office Visit [facility] [place] [facility] [address] [place] [phone] Harry Abbasi, DO [address] [facility] [place], [place] [id number] ArrivedNOMS [place] OBGYNComment on above:ArrivedStart: 55-98-4110Eyunf BMI ScreeningAdult BMI ScreeningProMedica Health SystemStart: 47-63-2284Mmhdgdwqoo ScreeningDepression ScreeningProMedica Health SystemStart: 91-38-3919Tvgdakg ScreeningTobacco ScreeningProMedica Health SystemStart: 12-20-2024 End: 05-34-6313yhglfbsphb04/13/2025 9:40 AM EDT Visit [facility] [address] [place] [phone] Alyssa Bazan PA [address] [address] NOMS BCP OBStart: 77-23-6170Mjilm BMI ScreeningAdult BMI ScreeningProRegency Hospital [facility] Health SystemStart: 10-50-7186Lwbapjizzs ScreeningDepression ScreeningProMedica Health SystemStart: 73-05-3355Mwjthti ScreeningTobacco ScreeningProMedica Health SystemStart: 12-12-2024 End: 07-07-3031Krzzdnh encounter gzdlxsanc67/05/2025 2:20 PM EST Office Visit [facility] [address] [place] [address] Alyssa Bazan, PA [address] [place] [address] ArrivedNOMS BCP OBComment on above:ArrivedStart: 11-15-2024 End: 97-70-6021Ogwtqbo encounter xatbtwfxf44/06/2025 3:30 PM EST Office Visit [facility] [address] [place] [phone] Alyssa Bazan, PA [address] [place] [address] NOM[facility] BCP OBStart: 11-15-2024 End: 73-41-1259Uevxrlz encounter /06/2025 1:50 PM EST Office Visit [facility] [address] [place] [id number] Alyssa Bazan, PA [address] [place] [address] ArrivedNOSD BCP OBComment on above:ArrivedStart: 11-08-2024 End: 40-25-0676Zvingam encounter axhfgprkt19/30/2025 11:10 AM EST Routine [facility] [address] [place] [phone] Harry Abbasi, [address] [place] [address] [facility] BCP OBStart: 10-31-2024 End: 39-26-0489Ctdjngg encounter procedureNOMS BCP OBComment on above:Arrived Start: 10-22-2024 End: 26-26-5583QPKXGKF, GROUP B STREP WITH SUSCEPTIBLITYCULTURE, GROUP B STREP WITH SUSCEPTIBLITY Lab Routine Third trimester Expected: 10/22/2024, Expires: 10/22/2025[facility] Work Phone: comment on above:Expected: 10/22/2024, Expires: 10/22/2025Start: 10-22-2024 End: 33-21-8980Ahlovjn encounter procedureNOMS BCP OBComment on above:Arrived Start: 10-15-2024 End: 94-27-5324Dyvgaon encounter procedureNOMS BCP OBComment on above:Arrived Start: 09-25-2024 End: 71-04-3784Yithnec encounter procedureNOMS BCP OBComment on above:Arrived Start: 71-55-4180Vrrkc BMI Follow Up PlanAdult BMI Follow Up PlanAdena [facility] SystemStart: 09-11-2024 End: 58-05-8864Rbdcees encounter procedureNOMS BCP OBComment on above:Arrived Start: 09-11-2024 End: 36-85-5312Hlhptwxavdyv / ancillary services gsanamsxtj31/03/2024 10:00 AM EST Ancillary Procedure [facility] [address] [place] [phone] [facility] BCP OBStart: 08-28-2024 End: 86-15-7715EH for pregnancyUS OB SCAN FOR GROWTH Imaging Routine size inconsistent with dates Expected: 08/28/2024(Approximate), Expires: 08/28/2025NOSD Healthcare Work Phone: comment on above:Expected: 08/28/2024 (Approximate), Expires: 08/28/2025Start: 08-28-2024 End: 47-43-7456Loiiluw encounter procedureNOMS BCP OBComment on above:Arrived Start: 07-30-2024 End: 77-46-9218GDD panel - Blood by Automated countCBC Lab Routine Diabetes mellitus screening Expected: 07/30/2024 (Approximate), Expires: 07/30/2025[facility] Work Phone: comment on above:Expected: 07/30/2024 (Approximate), Expires: 07/30/2025Start: 07-30-2024 End: 83-51-5427Kdqxbhlocgb of glucose 1 hour after glucose challenge for glucose tolerance testGlucose tolerance, 1 hour Lab Routine Diabetes mellitus screening Expected: 07/30/2024 (Approximate), Expires: 10/21/2025[facility] HealthcareComment on above:Expected: 07/30/2024 (Approximate), Expires: 07/30/2025Start: 07-30-2024 End: 42-75-6491Vheffib encounter zykxvglyw27/21/2024 9:10 AM EDT Routine [facility] [address] [place] [id number] Harry Abbasi DO [address] [place], [place] [id number] [facility] OBComment on above: ArrivedStart: 07-02-2024 End: 90-83-8766Czpufpl encounter procedureNOMS BCP OBStart: 07-02-2024 End: 77-10-2367Gvqxykgjwavz / ancillary services fihlpdhqui63/23/2024 8:30 AM EDT Ancillary Procedure [facility] [address] [place] [address] [facility] BCP OBStart: 06-28-2024 End: 36-08-1258Gkusrjm encounter gboubodib89/19/2024 3:00 PM EDT Routine [facility] [address] [place] [address] Alyssa Bazan PA [address] [place], [place] [id number] [facility] OBComment on above: ArrivedStart: 27-33-9075Reyasvxyb vaccinationInfluenza Vaccine (#1)[facility] HealthcareStart: 05-29-2024 End: 80-35-8211Caghx fetoprotein, maternalAlpha fetoprotein, maternal Lab Routine 15 weeks gestation of Expected: 05/29/2024 (Approximate), Expires: 07/29/2024NOM[facility] HealthcareComment on above:Expected: 05/29/2024 (Approximate), Expires: 07/29/2024Start: 05-29-2024 End: 08-60-0133LW for pregnancyUS OB ANATOMY SINGLE W US OB CERVICAL LENGTH Imaging Routine Screening, , for anatomic survey Expected: 05/29/2024 (Approximate), Expires: 05/29/2025[facility] HealthcareComment on above: Expected: 05/29/2024 (Approximate), Expires: 05/29/2025Start: 05-29-2024 End: 53-98-1865Ebzqzjq encounter nnjhqzexc31/20/2024 10:50 AM EDT Routine [facility] [address] [place] [phone] Harry Abbasi, DO [address] [place] [address] [facility] BCP OBComment on above: ArrivedStart: 57-10-8243Vnuwbgtvg vaccinationInfluenza Vaccine (#1)[facility] HealthcareCHLAMYDIA TRACHOMATIS (GENITO/STI)CHLAMYDIA TRACHOMATIS (GENITO/STI) Lab Routine Exposure to STD Ordered: 05/29/2024[facility] HealthcareComment on above: Ordered: 05/29/2024HLAMYDIA TRACHOMATIS (GENITO/STI)CHLAMYDIA TRACHOMATIS (GENITO/STI) Lab Routine Exposure to STD Ordered: 06/27/2025[facility] Healthcare Comment on above:Ordered: 5Cytology Cervical or vaginal smear or scraping studyPap Smear Pathology and Cytology Routine Well woman exam with routine gynecological exam Ordered: 05/29/2024[facility] Work Phone: comment on above:Ordered: 4Cytology Cervical or vaginal smear or scraping studyPap Smear Pathology and Cytology Routine Well woman exam with routine gynecological exam Ordered: 06/27/2025[facility] Work Phone: comment on above:Ordered: 06/27/2025Neisseria gonorrhoeae DNA [Presence] in Unspecified specimen by RADHA with probe detection Neisseria gonorrhea DNA probe, direct Lab Routine Exposure to STD Ordered: 05/29/2024[facility] HealthcareComment on above:Ordered: 05/29/2024Neisseria gonorrhoeae DNA [Presence] in Unspecified specimen by RADHA with probe detection Neisseria gonorrhea DNA probe, direct Lab Routine Exposure to STD Ordered: 06/27/2025[facility] HealthcareComment on above:Ordered: 06/27/2025SURESWAB(R) ADVANCED VAGINITIS PLUS, TMASURESWAB(R) ADVANCED VAGINITIS PLUS, TMA Pathology and Cytology Routine Vaginal discharge Ordered: 05/29/2024[facility] HealthcareComment on above:Ordered: 05/29/2024SURESWAB(R) ADVANCED VAGINITIS PLUS, TMASURESWAB(R) ADVANCED VAGINITIS PLUS, TMA Pathology and Cytology Routine Vaginal discharge Ordered: 06/27/2025[facility]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
[2025-08-02 06:17] LABS: Hematocrit 41.0 % (36.0-48.0); Hemoglobin 13.7 g/dL (12.0-16.0); Immature Granulocytes Abs Auto 0.01 10^3/uL (0.00-0.03); Immature Granulocytes Pct Auto 0.2 % (0.0-0.5); Lymphocytes Absolute Auto 2.0 10^3/uL (1.2-3.8); Mean Corpuscular HGB Conc 33.4 g/dL (29.9-35.2); Mean Corpuscular Hemoglobin 27.4 pg (26.7-34.0); Mean Corpuscular Volume 82.0 fL (81.0-99.0); Platelet Count 254 10^3/uL (150-450); Red Blood Count 5.00 10^6/uL (4.20-5.40); White Blood Count 5.5 10^3/uL (4.0-11.0)
--- NOTE | 2025-08-02 08:36 | P.ON_ITS ---
Brief Operative Note Date of procedure: 08/02/25 Pre-op diagnosis general: desires permanent sterilization Post-op diagnosis: same as pre-op Procedure: NAME OF PROCEDURE: robotic assisted bilateral laparoscopic salpingectomy PROCEDURE: The patient was taken back to the Operating Room where she was given general anesthesia without difficulty. She was then prepped and draped in the normal sterile fashion after being placed in a dorsal lithotomy position. A wet sponge stick was placed into the patient's vagina. Attention was then turned to the patient's abdomen, where a scalpel was used to make a small infraumbilical incision. The S retractors were then used to dissect the underlying layers until the fascia could be seen. The fascia was then grasped with Maggie clamps and tented up. A knife was then used to make a small incision to the fascia. The muscle was identified, at that time two sutures of #0 Vicryl on a GI needle was then used and placed through the fascia. the peritoneum was then identified and entered bluntly. The 10-4 Mirta was then placed into the patient's abdomen. This was confirmed with direct visualization of the bowel, using the laparoscope. The patient's abdomen was then insufflated using approximately 4 liters of CO2 gas. Survey of the patient's abdomen demonstrated ovaries were normal in appearance as well as both tubes and uterus. A second and third rt and lt lateral robotic ports which were 8 mm in size, was then placed after the skin incision was made under direct visualization . the robotic arms were engaged. The patient's tube on the patient's right side was identified and tented up using a grasper, the ligasure apparatus was then used to come across the mesosalpingx from the fimbriated end to the insertion site at the uterus, the tube was then amputated and removed in its entirety. This was done on the contralateral side. The tubes were the removed from the patients abdomen. Excellent hemostasis was noted. The lateral ports were then moved under direct visualization with excellent hemostasis. All instruments were removed from the patient's abdomen. The fascia was closed using the #0 Vicryl on GI needle. The skin was closed using 4-0 Vicryl subcuticularly. All instruments were removed from the patient's vagina as well. The patient was taken out of the dorsal lithotomy position and placed in the supine position and taken to recovery in stable condition. Sponge, lap and needle counts were correct x2. Anesthesia: COSMOA Surgeon: Harry Abbasi Juvenile Detention Officer: Tori Lazar Estimated blood loss (mL): 5 Pathology: none sent Condition: stable Disposition: PACU Urinary Catheter Management Urinary Catheter Management Urethral: Cath placed during this visit: no
--- NOTE | 2025-08-02 09:39 | PC.NURSE ---
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
== END 2025-08-02 10:15 | disposition home or self-care (01) ==
PROVIDERS: PCP Nurse Practitioner Family; Visit Provider Obstetrics & Gynecology
PROC: (CPT 840; principal; 2025-08-02 07:30)
DX: Z30.2 Encounter for sterilization (principal); E66.01 Morbid (severe) obesity due to excess calories; Z68.41 Body mass index [BMI] 40.0-44.9, adult
CPT/HCPCS: 58661; 36415; 84702; 85025; 88302; J1100; J1171; J1885; J2250; J2371; J2704; J3010

== ENCOUNTER 2025-08-10 16:07 | Emergency (ER) | payer OTHER, SELFPAY ==
--- OUTSIDE RECORDS SUMMARY | 2024-12-27 04:45 | XMS_ITS ---
Author Organization [facility] vices Address [address] [place] [phone] Care Team Providers Care Customer Success Manager Name Role Phone MendozaBilly ruziy Unavailable [phone] Magnolia Burns Unavailable [phone] REASON FOR VISIT Recall (A) (22) Medications Medication SIG (Take, Route, Frequency, Duration) Notes Start Date End Date Status Progesterone Micronized - ; Duration: 30 Days ActiveLo Loestrin Fe 1 MG-10 MCG / 10 MCGOral; Duration: 28 DaysActive Social History Sex Assigned At : Social History Observation Description Sex Assigned At Female Encounters Encounter Location Date Provider Diagnosis [facility] [address] [place], [place] [phone] 12/27/2024 Magnolia Burns Plan Of Treatment Next Appt Details Provider Name:Nieves Alejandrochaim sherman, 02/04/2026 03:15:00 PM, [address] [place], [place], [phone], Progress Notes * Edson MARTINEZOB: 3 (24 yo F)Acc No.[id number]:12/27/2024 Patient:?Ash MARTINEZ :?Magnolia Burns DDSDOB:2000???Age:24 Y ???Sex:FemaleDate:12/27/2024Phone:[phone]:[address] [place], [id number] Subjective: * Chief Complaints: * 1 . Recall (A) (22). * Medical History: * Medications: T philipg Lo Loestrin Fe 1 MG-10 MCG / 10 MCG Tablet Oral , Taking Progesterone Micronized - Powder Objective: * Vitals: Assessment: Plan: * Treatment: * Billing Information: * Visit Code: * Procedure Codes: * Electronic signature of Magnolia Burns DDS on 08/10/2025 at 04:24 PM EDT Sign off status: Pending * Provider: Adelia Burns DDS Date: 0 12/27/2024 Generated for Printing/Faxing/eTransmitting on:?08/10/2025 04:24 PM EDT
--- OUTSIDE RECORDS SUMMARY | 2025-06-26 06:15 | XMS_ITS ---
Author Organization [facility] vices Address [address] [place] [phone] Care Team Providers Care Stacker Tender Name Role Phone Reji Nieves Unavailable [phone] Alicia Correia Unavailable [phone] REASON FOR VISIT Periodic Exam Poss. Saud (Miguel) (24) Social History Sex Assigned At : Social History Observation Description Sex Assigned At Female Encounters Encounter Location Date Provider Diagnosis [facility] [address] [place] [phone] 06/26/2025 Alicia Correia Plan Of Treatment Next Appt Details Provider Name:Nieves whitaker, 02/04/2026 03:15:00 PM, [address] [place] [address], [phone], Progress Notes * Edson MARTINEZOB: 3 (24 yo F)Acc No.[id number]:06/26/2025 Patient:?LETICIAJames JacobAsh :?Alicia Correia DDS?Resource:Lc BHAT JessenDOB: 2000???Age:24 Y???Sex:FemaleDate:06/26/2025Phone:[phone]:[address] [place], [place]-[phone] Subjective: * Chief Complaints: * 1 . Periodic Exam PossTapan Villavicencio (Miguel) (24). * Medical History: Objective: * Vitals: Assessment: Plan: * Treatment: * Billing Information: * Visit Code: * Procedure Codes: * Electronic signature of Alicia Correai DDS on 08/10/2025 at 04:22 PM EDTSign off status: Pending * Provider: Eric Correia DDS Date: 0 06/26/2025 Generated for Printing/Faxing/eTransmitting on:?08/10/2025 04:22 PM EDT
--- OUTSIDE RECORDS SUMMARY | 2025-08-02 20:30 | XMS_ITS | Continuity of Care Document ---
Author Organization [facility] Address [address] [place] [address] Phone Care Team Providers Care Furnace Stock Inspector Name Role Phone Harry Abbasi DO Attending Provider Care Teams Patient Care Team Team Status: Inactive Member Role/Relationship Status Dates Harry Abbasi DO Attending Provider Active Start : August 02, 2025 End: August 02, 2025 Chief Complaint and Reason for Visit Chief Complaint Admit Date Unknown August 02, 2025 8 :43am Social History Smoking Status Unknown if ever smoked Observation Status Observation Response Date of Response Legal Sex Female (finding) Sex Assigned At [facility] 2002 Advance Directives Advance Directive Response Recorded Date/ Time Advance Directives No August 02, 2025 12:08pm Insurance Providers Guarantor Ash Martinez Address [address] [id number] Info.Home Phone: Payer Group Member ID Coverage Type Subscriber Relationship to Subscriber Effective Date Expiration Date [employer] [id number] [employer] Id: [id number] [address] [address] Home Phone: Email: [email or web address] Encounters Encounter Location(s) Arrival/Admit Date Discharge/Departure Date Discharge/Departure Disposition Provider(s) Departed Referred -[facility] August 02, 2025 8:43am August 02, 2025 8:44am Discharged to home care or self care (routine discharge) Harry Abbasi
[2025-08-10 16:13] VITALS: BP 128/80; PULSE 77; TEMP 36.5; O2SAT 100; BMI 42.3
--- OUTSIDE RECORDS SUMMARY | 2025-08-10 16:21 | XMS_ITS | CCD ---
Author Organization [facility] Care Team Providers Care Team Leader/Research Psychologist Name Role Phone BOYDC, DR BEAN [...] Unavailable Reid Jasmine MD Primary Care Provider [phone] KATARZYNA MIREYA Valentín Referring Unavailable SUMMER MARES Primary Care Unavailable SHIMONSSUMMER Attending Unavailable SUZAN, SUMMER GUTIÉRREZ Referring Unavailable SHIMONS, SUMMER GUTIÉRREZ Primary Care Unavailable KATARZYNA, MIREYA Valentín Attending Unavailable SUMMER MARES Referring Unavailable SUZAN, SUMMER GUTIÉRREZ Primary Care Unavailable YIMI GALLO Attending Unavailable KATARZYNA, MIREYA L Referring Unavailable KATARZYNA, MIREYA L Primary Care Unavailable Unavailable Primary Care Provider Unavailabl e Kuns SWEEP PRESS OPERATOR-PLANNING DIRECTOR, Summer Gutiérrez Primary Care Provider Katarzyna SWEEP PRESS OPERATOR-SCHOOL TRAFFIC GUARD, Mireya L Primary Care Provider BENI, ALYSSA Attending Unavailable AYLEEN, HARRY Attending Unavailable BENI, ALYSSA Attending Unavailable BENI, ALYSSA Attending Unavailable BENI, ALYSSA Attending Unavailable AYLEEN, HARRY Attending Unavailable AYLEEN, HARRY Attending Unavailable AYLEEN, HARRY Attending Unavailable BENI, ALYSSA Attending Unavailable AYLEEN, HARRY Attending Unavailable BENI, ALYSSA Attending Unavailable AYLEEN, HARRY Attending Unavailable AYLEEN, HARRY Attending Unavailable MIREYA COLÓN Primary Care Unavailable PANKAJ STEWART Attending Unavailable MIREYA COLÓN Primary Care Unavailable MIREYA COLÓN Primary Care Unavailable CATERINA MENESES Attending UnavailMireya Tse Primary Care Provider Harry Abbasi DO Attending Provider Harry Abbasi Attending Unavailable Harry Abbasi Admitting Unavailable Allergies Allergy ClassificationReported Allergen(s)Allergy TypeDate of OnsetReaction(s) Facility (1 source)[facility] (20 sources)OndansetronDrug Owfrpnw14-28-7230YkmvQGUW Healthcare Work Phone: (7 sources)Ondansetron; Translations: [ONDANSETRON HCL]Drug Hucvavk96-22-6705 [facility] Rep[facility] Medications Current Medications MedicationDrug Class(es)DatesSig (Normalized)Sig (Original)citalopram 20 mg oral tablet (20 sources)Serotonin Reuptake InhibitorStart: 09-25-2024 End: 86-42-5985pcdx 1 tablet by mouth once dailycitalopram (CeleXA) 20 MG tablet Indications: Anxiety with depression Take 1 tablet (20 mg) by mouth Daily 30 tablet 11 09/25/2024 09/25/2025 Activecyclobenzaprine hydrochloride 10 mg oral tablet (1 source)Muscle RelaxantStart: 84-15-1844ijtv 1 tablet by mouth three times daily as needed for muscle spasmscyclobenzaprine (Flexeril) 10 MG tablet Take 10 mg by mouth 3 (three) times a day as needed for muscle spasms. 0 07/31/2023 ActiveEthinyl Estradiol / Ferrous fumarate / Norethindrone (1 source)EstrogenStart: 10-26-2023 End: 30-24-0447ahov 1 tablet by mouth in the morningnorethindrone-ethinyl estradiol-iron (Lo Loestrin Fe) 1 MG-10 MCG / 10 MCG tablet Indications: Encou nter for surveillance of contraceptive pills Take 1 tablet by mouth in the morning. Take 1 tablet by mouth daily. 28 tablet 11 10/26/2023 09/26/2024 Active etonogestrel 68 mg drug implant (6 sources)ProgestinStart: 12-17-2024 End: 93-46-5297zezjmgbkylux-eluting 68 mg contraceptive implant 1 eachFLUoxetine 10 mg oral capsule (1 source)Serotonin Reuptake Inhibitortake 1 capsule by mouth in the morning FLUoxetine (PROzac) 10 mg capsule Take 1 capsule (10 mg total) by mouth in the morning. Activefluticasone propionate 0.05 mg/actuat metered dose nasal spray (2 sources)CorticosteroidStart: 84-03-1074vlis 2 spray(s) nasal route in the morningfluticasone propionate (FLONASE) 50 mcg/actuation nasal spray Administer 2 sprays into each nostrilin the morning. 16 g 07/04/2024 Activeibuprofen 800 mg oral tablet (12 sources)Nonsteroidal Anti-inflammatory DrugStart: 41-04-7935zqwk 1 tablet by mouth every eight hoursibuprofen 800 MG tablet Take 800 mg by mouth every 8 (eight) hours 11/11/2024 ActiveStart: 01-15-6025mteazhgsp 800 MG tablet Take 800 mg by mouth in the morning and 800 mg at noon and 800 mg in the evening. 0 07/31/2023 ActivemetroNIDAZOLE 500 mg oral tablet (3 sources)Nitroimidazole AntimicrobialStart: 06-27-2025 End: 45-60-0463bbzv 1 tablet by mouth in the morningmetroNIDAZOLE [...] ORAL Take by mouth once daily. Active Completed/Discontinued Medications MedicationDrug Class(es)DatesSig (Normalized)Sig (Original)Calcium Carbonate Antacid (TUMS PO) (20 sources) End: 00-31-1488Tkddqws Carbonate Antacid (TUMS PO) Take by mouth 11/15/2024 DiscontinuedCalcium Carbonate Antacid (TUMS PO) Take by mouth ActiveEthinyl Estradiol / norgestimate (2 sources)Progestin, Estrogen End: 67-86-5075ttmd 1 tablet by mouth once in the morningnorgestimate-ethinyl estradioL (ORTHO-CYCLEN) 0.25-35 mg-mcg per tablet Take 1 tablet by mouth in the morning. 02/17/2024 Discontinued (Therapy completed)take 1 tablet by mouth once in the morningnorgestimate-ethinyl estradioL (ORTHO-CYCLEN) 0.25-35 mg-mcg per tablet Take 1 tablet by mouth in the morning. 0 ActivePrenatal MV-Min-Fe Fum-FA-DHA ( 1 PO) (20 sources) End: 71-02-7192Plmzpdum MV-Min-Fe Fum-FA-DHA ( 1 PO) Take by mouth 11/15/2024 DiscontinuedPrenatal MV-Min-Fe Fum-FA-DHA ( 1 PO) Take by mouth ActiveProgesterone (8 sources)ProgesteroneStart: 04-05-2024 End: 04-98-5223Jkygvozyzneh Micronized (progesterone, bulk,) powder 04/05/2024 06/28/2024 DiscontinuedStart: 40-55-9825Vvalpnkuasmd Micronized (progesterone, bulk,) powder 04/05/2024 Active Problems Active Problems Problem ClassificationProblemDateDocumented DateEpisodic/ChronicAnxiety disorders (20 sources)Post-traumatic stress disorder, unspecified; Translations: [Mixed anxiety and depressive disorder]Onset: 128933-50-3357UsqxufePujqxrsgkwkew and procreative management (9 sources)Encounter for surveillance of implantable subdermal contraceptive; Translations: [Encounter for other general counseling and advice on contraception]Onset: 75-46-3244AnntjuvkSlrzg of unknown origin (1 source)FeverOnset: 55-27-2853YhcvpnvgBxwwmlvyksscw and screening for infectious disease (8 sources)Contact with and (suspected) exposure to infections with a predominantly sexual mode of transmission; Translations: [Exposure to sexually transmissible disorder]Onset: 00-18-2394HjaaglceZyjtia and vomiting (1 source)VomitingOnset: 99-59-9250BhojmxgkVksn wounds of extremities (1 source)Laceration without foreign body, right lower leg, initial encounter; Translations: [Laceration without foreign body, right lower leg, initial encounter]Onset: 37-41-2558SzdwwnbzAexxx complications of (2 sources) size does not accord with dates; Translations: [Uterine size- date discrepancy, unspecified trimester]25-47-3151DpgywlquQxxmd female genital disorders (3 sources)Vaginal discharge; Translations: [Other specified noninflammatory disorders of vagina]00-88-0470TpjhewdqNjzyn injuries and conditions due to external causes (1 source)Laceration - injuryOnset: 66-77-0699QpafjookWcefr non-traumatic joint disorders (1 source)Pain in wristOnset: 04-49-2328AgecazcbNresi nutritional; endocrine; and metabolic disorders (1 source)Other obesity due to excess calories; Translations: [Other obesity due to excess calories]Onset: 27-18-3278LsjfzywJtglc nutritional; endocrine; and metabolic disorders (1 source)Body mass index (BMI) 37.0-37.9, adult; Translations: [Body mass index (BMI) 37.0-37.9, adult]Onset: 64-01-4848KgayhbqDahsw nutritional; endocrine; and metabolic disorders (1 source)Obesity caused by energy imbalance; Translations: [Other obesity due to excess calories]18-56-1487UggrzidBmtrh screening for suspected conditions (not mental disorders or infectious disease) (4 sources)Patient encounter status; Translations: [Encounter for screening for diabetes mellitus]13-72-2512BojodgsuRaeni upper respiratory disease (1 source)Nasal congestion; Translations: [Nasal congestion]Onset: 07-04-2024 EpisodicOther upper respiratory disease (2 sources)Nasal congestion; Translations: [Nasal congestion]Onset: 07-04-2024 34-78-4997CopcptogYkyygrux codes; unclassified (2 sources)Gestation period, 24 weeks; Translations: [24 weeks gestation of ]69-22-0570LydpxzylBraldglw codes; unclassified (2 sources)Gestation period, 28 weeks; Translations: [28 weeks gestation of ]76-56-7380FtcaabgyXatwdqic codes; unclassified (2 sources)Gestation period, 30 weeks; Translations: [30 weeks gestation of ]27-00-9871BuogmphiYjynwqhk codes; unclassified (2 sources)Gestation period, 35 weeks; Translations: [35 weeks gestation of ]62-37-3339DkhznhzaOdohkiib codes; unclassified (2 sources)Gestation period, 37 weeks; Translations: [37 weeks gestation of ]44-40-6522KtlfyprvAtszomui codes; unclassified (2 sources)Gestation period, 38 weeks; Translations: [38 weeks gestation of ]37-24-3370VnxreuhwMsgb and subcutaneous tissue infections (1 source)Cellulitis of left upper limb; Translations: [CELLULITIS OF LEFT UPPER LIMB]Onset: 45-12-6367QuvqxvpmUtntoscfjll; intervertebral disc disorders; other back problems (1 source)Backache; Translations: [Dorsalgia, unspecified]76-87-0030Yztsxuju Sprains and strains (1 source)Unspecified sprain of left wrist, initial encounter; Translations: [Unspecified sprain of left wrist, initial encounter]Onset: 65-93-6310Nfghtyyp Unclassified (2 sources)CONTACT W/AND (SUSP) EXPOS COVID-19; Translations: [CONTACT W/AND (SUSP) EXPOS COVID-19]Onset: 02-91-1269Siyvgbjullcf (1 source)Annual ExamOnset: 05-05-0593Vjrttoaroavi (1 source)Cold Like SymptomsOnset: 41-37-4208Txgwqioluzjn (1 source)Sore Throat, EaracheOnset: 84-65-0166Rsjba infection (1 source)COVID-19; Translations: [COVID-19]Onset: 05-17-2022 Past or Other Problems Problem ClassificationProblemDateDocumented DateEpisodic/ChronicMood disorders (4 sources)Mood disordersOnset: 02-17-2024 Resolved: 265413-51-9799Fnpdq aftercare (20 sources)Surgical follow-up; Translations: [Encounter for follow-up examination after completed treatment for conditions other than malignant neoplasm]Onset: 606113-59-7904AkxgvchuFfkzt and delivery including normal (20 sources)Third trimester ; Translations: [Encounter for supervision of normal , unspecified, third trimester]Onset: 09-25-2024 Resolved: 859944-92-6040OicifnujKmrwf upper respiratory infections (3 sources)Acute upper respiratory infection, unspecified; Translations: [Viral upper respiratory tract infection]Onset: 342423-04-1188PchcurkrEzbyjsnm codes; unclassified (20 sources)Gestation period, 32 weeks; Translations: [32 weeks gestation of ]Onset: 09-25-2024 Resolved: 896036-53-9277NqtnnavkQcqohdju codes; unclassified (2 sources)Gestation period, 15 weeks; Translations: [15 weeks gestation of ]26-19-6858DamofpzcBjguntms codes; unclassified (20 sources)Gestation period, 36 weeks; Translations: [36 weeks gestation of ]Onset: 10-22-2024 Resolved: 173746-43-5601WmstghapPnnipigwasf (4 sources)Complete or unspecified spontaneous without complication; Translations: [Miscarriage]Onset: 430557-20-4721XcmesmtmQqcylazaisix (1 source)CONTACT W/AND (SUSP) EXPOS COVID-19; Translations: [CONTACT W/AND (SUSP) EXPOS COVID-19]Onset: 52-38-6919Esxqjigjdmtu (4 sources)Onset: Results Test NameValueInterpretationReference RangeFacilernstLon 08-02-2025 Specimen: [id number] Received: 08/02/25 Status: MARI Chun Num: [id number] Spec Type: Surgical Subm Dr: Harry Abbasi Tissues: A Fallopian Tube - Sterilization (BILATERAL FALLOPIAN TUBES) Procedures: HE/2, Gross/Micro L2 Age/ Patient Sex Location Account Attending Physician Ash Martinez / LABELL [id number] Harry Abbasi SPEC NUM: [id number] RECD: 08/02/25 STATUS: MARI ARMANI NUM: [id number] PATTY: 08/02/25 [facility] DR: Harry Abbasi ENTERED: 08/02/[address] [facility] [address]: Maey Rocha SPEC TYPE: Surgical DEPT: ROSY DELATORRE ENTERED BY: [id number] RECV BY: [id number] ORDERED: HE/2, Gross/Micro L2 ORDERED: HE/2, Gross/Micro L2 Pathological Diagnosis Bilateral fallopian tubes, bilateral tubal ligation: - Bilateral fallopian tubes with no significant histopathology. Clinical Information Request for sterilization Gross Description Received in formalin labeled with the patient's name, date of , and bilateral fallopian tubes are bilateral, non-oriented fallopian tubes with fimbriated distal ends, 6.5 x 0.5 cm, and 7 x 0.6 cm. The serosa is morales-purple, smooth and glistening. Serial sections reveal pinpoint lumen within each segment. Cassettes: A1 Longitudinally bisected fimbriated end and canvas products sales representative cross-sections from shorter tube A2 Entirety of longitudinally bisected fimbriated end and canvas products sales representative cross-sections from longer tube (2, ss, DR61-291 A)JOSE EDUARDO Specimen: [id number] Received: 08/02/25 Status: MARI Chun Num: [id number] Spec Type: Surgical Subm Dr: Harry Abbasi Tissues: A Fallopian Tube - Sterilization (BILATERAL FALLOPIAN TUBES) Procedures: HE/2, Yani/Yolande L2 Patient: PedrocateAsh [id number] (Continued) Specimen: [id number] Received: 08/02/25 (Continued) Signed (signature on file) Jorge Hughes MD 08/05/25 1455 Specimen: [id number] Received: 08/02/25 Status: MARI Chun Num: [id number] Spec Type: Surgical Subm Dr: Harry Abbasi Tissues: A Fallopian Tube - Sterilization (BILATERAL FALLOPIAN TUBES) Procedures: HE/Yani Vera/Yolande L2 Patient: Ash Martinez [id number] (Continued) Specimen: [id number] Received: 08/02/25 (Continued) Microscopic Description Microscopic examination is performed. CPT Codes 82068 Specimen: [id number] Received: 08/02/25 Status: MARI Groverbrayan Num: [id number] Spec Type: Surgical Subm Dr: Harry Abbasi Tissues: A Fallopian Tube - Sterilization (BILATERAL FALLOPIAN TUBES) Procedures: HE/2, Yani/Yolande L2 Patient: Ash Martinez [id number] (Continued) Signed (signature on file) Jorge Hughes MD 08/05/25 1455Normal [facility] Physician GroupIGP,APTIMA HPV,AGE GDLNon 77-68-3942TYV GDLN ACOG TESTINGNote.[facility]OMS HealthcareComment on above:TESTS RESULT FLAG UNITS REF RANGE LAB Clinician Provided Cytology Information Source.............Cervix;Endocervix No. of containers..01 ThinPrep Vial Age Josefa AVILES Keke... FLAG LEGEND: L-Low Normal,H-High Normal,LL-Alert Low,HH-Alert High <-Panic Low,>-Panic High,A-Abnormal,AA-Critical Abnormal Performed at: 01 = [address] [address] Darlene Gonzalez MD, IGP, RFX APTIMA HPV ASCUNote.[facility] HealthcareComment on above:TESTS RESULT FLAG UNITS REF RANGE LAB DIAGNOSIS: 02 NEGATIVE FOR INTRAEPITHELIAL LESION OR MALIGNANCY. Specimen adequacy: 02 Satisfactory for evaluation. Endocervical and/or squamous metaplastic cells (endocervical component) are present. Performed by: 02 Tarsha Palencia Kieselguhr Regenerator Operator (ASCP) . 02 Note: Note 02 The Pap [...] <-Panic Low,>-Panic High,A-Abnormal,AA-Critical Abnormal Performed at: [address] [address] Darlene Gonzalez MD, Performed at: = - [address] [id number] Ethnographer: Darlene Gonzalez MD, Phone: [phone] Performed at: [facility] [address] [id number] Ethnographer: Darlene Gonzalez MD, Phone: [phone] BRUSH-SPATULA CERVIX ENDOCERVIX CLINISYNCNOMS HealthcareRECURRENT VAGINITIS (HTRX)on 26-87-4283GGJFICUZS VAGINAE 0NOMS HealthcareATOPOBIUM VAGINAENot detectedNOMS HealthcareBVAB 2,3 (BACTERIAL VAGINOSIS ASSOCIATED BACTERIA 2, 3); MOBILUNCUS DJF3MKXM HealthcareBVAB 2,3 (BACTERIAL VAGINOSIS ASSOCIATED BACTERIA 2, 3); MOBILUNCUS SPPNot detectedNOMS HealthcareCANDIDA ALBICANS, PARAPSILOSIS, PIXWQNDLYX6VVZR HealthcareCANDIDA ALBICANS, PARAPSILOSIS, TROPICALISNot detectedNOMS HealthcareCANDIDA GLABRATA0 NOMS HealthcareCANDIDA GLABRATANot detectedNOMS HealthcareCANDIDA WTJPCO4XLVS HealthcareCANDIDA KRUSEINot detectedNOMS HealthcareCHLAMYDIA UQZMHGNXAZL6UNQQ HealthcareCHLAMYDIA TRACHOMATISNot detectedNOMS HealthcareGARDNERELLA VAGINALIS0 NOMS HealthcareGARDNERELLA VAGINALISNot detectedNOMS HealthcareMEGASPHAERA (TYPES 1, 2)0NOMS HealthcareMEGASPHAERA (TYPES 1, 2)Not detectedNOMS Healthcare MYCOPLASMA YDUQUDXTGG1PYQH HealthcareMYCOPLASMA GENITALIUMNot detectedNOMS HealthcareNEISSERIA SNMHDFSRMJM8OGXK HealthcareNEISSERIA GONORRHOEAENot detected NOMS HealthcareTRICHOMONAS TDATMKOEK6FAQL HealthcareTRICHOMONAS VAGINALISNot detectedNOMS HealthcareNOMS HealthcareXR WRIST LT MIN 3 VWSon 06-03-9334BM WRIST LT MIN 3 VWSXR WRIST LT [...] by Jose Aj MD on 06/28/2025 8:39 AMNormalProPalestine Regional Medical CenterPOCT RAPID STREP Aon 02-08-2025S. pyogenes Ag IA Ql (Unsp spec)Positive AbnormalNegativeSumma Health Wadsworth - Rittman Medical CenterComment on above:Performed By: #### NSAS #### [facility] ([address] [address] VIRSARS/FLU A+B/RSV BY NAAT/MOLECULAR (M4RT COLLECTION TUBE)on 11-30-4728YUGS/FLU A+B/RSV BY NAAT/MOLECULAR (M4RT COLLECTION TUBE)FLU A PCR Negative FLU B PCR Negative RSV BY PCR Negative SARS COV 2 BY PCR Not DetectedNormalNot DetectedProPalestine Regional Medical CenterComment on above:Order Comment: The Xpert Xpress SARS-CoV-2/Flu/RSV [...] operators who are performing tests using either [facility] DX or Finder[employer] and is limited to laboratories that meet [...] specimen repeat. Fact Sheet for Healthcare Providers: https://www.fda.gov/media/768878/download Fact Sheet for Patients: https://www.fda.gov/media/472980/downloadPerformed By: #### COVFLR #### [facility] ([address] [address] VIRALL CBC WITH AUTO DIFFon 13-59-0829XOZLFVNBU ABSOLUTE AUTO0 NOMS HealthcareBasophils/100 WBC (Bld)0.3 %0.2 - 2.0 %[facility] Eosinophils/100 WBC (Bld)0.3 %Low0.9 - 7.0 %NOMS HealthcareErythrocyte distribution width (RBC) [Ratio]14.4 %11.0 - 15.0 %NOMS HealthcareHematocrit (Bld) [Volume fraction]26.5 %Low36.0 - 48.0 %N[facility] HealthcareHemoglobin (Bld) [Mass/Vol]8.8 g/dLLow12.0 - 16.0 g/dLNOMS HealthcareIMMATURE GRANULOCYTES ABS AUTO0.06HighNODE HealthcareImmature granulocytes/100 WBC (Bld)0.5 %0.0 - 0.5 % [facility] HealthcareInterpretation and review of laboratory resultsAbnormalNODE HealthcareLYMPHOCYTES ABSOLUTE AUTO2.3NOMS HealthcareLymphocytes/100 WBC (Bld) 19.6 %Low20.5 - 60.0 %[facility] HospitalH (RBC) [Entitic mass]28.4 pg26.7 - 34.[address]Mosaic [address] Care [address] JosephMCHC (RBC) [Mass/Vol]33.2 g/dL29.9 - 35.2 g/dLMosaic Life Care at St. Joseph MCV (RBC) [Entitic vol]85.5 fL81.0 - 99.[address] JosephMONOCYTES ABSOLUTE AUTO1.1HighNODE HealthcareMonocytes/100 WBC (Bld)9.1 %1.7 - 12.0 %NOMProgress West HospitalNEUTROPHILS ABSOLUTE AUTO8.2HighNOSaint Luke's Health SystemNeutrophils/100 WBC (Bld)70.2 %43.0 - 75.0 %[facility] St. JosephPlatelet mean volume (Bld) [Entitic vol] 10.5 fL9.5 - 13.[address] JosephTBH EO #0NOMS [facility] DaytonTB ZIF485KJOPLiberty Hospital RBC3.1LowNOMS [facility] WBC11.7HighMosaic Life Care at St. JosephCLINISYNC [facility] HealthcareALL CBC WITH AUTO DIFFon 89-12-9819TUZOSGTNK ABSOLUTE BZON2JLZYSaint Luke's Health SystemBasophils/100 WBC (Bld)0.4 %0.2 - 2.0 %NOMProgress West HospitalEosinophils/100 WBC (Bld)1.5 %0.9 - 7.0 %[facility] at St. JosephErythrocyte distribution width (RBC) [Ratio]14.2 %11.0 - 15.0 %[facility] St. JosephHematocrit (Bld) [Volume fraction]32.1 %Low36.0 - 48.0 %[facility] St. JosephHemoglobin (Bld) [Mass/Vol]10.8 g/dLLow12.0 - 16.0 g/dLMosaic Life Care at St. JosephIMMATURE GRANULOCYTES ABS AUTO0.03NOSaint Luke's Health System Immature granulocytes/100 WBC (Bld)0.4 %0.0 - 0.5 %[facility] HealthcareInterpretation and review of laboratory resultsAbnormalNODE HealthcareLYMPHOCYTES ABSOLUTE CZRA0BESR HealthcareLymphocytes/100 WBC (Bld)27.6 %20.5 - 60.0 %[facility] MCH (RBC) [Entitic mass]28.5 pg26.7 - 34.[address] JosephMCHC (RBC) [Mass/Vol]33.6 g/dL29.9 - 35.2 g/dLMosaic Life Care at St. JosephMCV (RBC) [Entitic vol]84.7 fL 81.0 - 99.[address] JosephMONOCYTES ABSOLUTE AUTO0.7[facility] Monocytes/100 WBC (Bld)10 %1.7 - 12.0 %[facility]. JosephNEUTROPHILS ABSOLUTE AUTO 4.3NOMS [facility] DaytonNeutrophils/100 WBC (Bld)60.1 %43.0 - 75.0 %[facility] Platelet mean volume (Bld) [Entitic vol]10.7 fL9.5 - 13.[address] JosephTBH EO #0.1NOMS HealthcareTB EOO062ZOFHSaint Luke's Health SystemTB RBC3.79LowNOSaint Luke's Health SystemTB WBC7.2NOMS HealthcareCLINISYNCNBAILEY MEDICAL CENTER [facility] [place] HealthcareUrinalysis macro (dipstick) panel (U)on 08-78-3857Haynthygl, UANegativeNegative - 4(70) +++ mg/dLNOSaint Luke's Health System Blood, UANegativeNegative - 50 Jaguar/mcLNODE HealthcareClarity, UAClearNODE HealthcareColor, UAYellowNODE HealthcareGlucose, UANegativeNegative - 2000(110) ++++ mg/dLNODE HealthcareInterpretation and review of laboratory resultsAbnormal [facility] HealthcareKetones, UANegativeNegative - 160(16) ++++ mg/dLMosaic Life Care at St. Joseph Leukocytes, UATraceNegative - 500+++ Lizeth/mcLNODE HealthcareNitrite, UANegative Negative - PositiveNODE HealthcarepH, UA75 - 9NOMS HealthcareProtein, UAPositive Negative - 2000(20) ++++ mg/dLNODE HealthcareComment on above:30Spec Grav, UA 1.0251 - 1.03NOMS HealthcareUrobilinogen, UA1.00.2 - 12 mg/dLNOMS HealthcareNOMS HealthcareUrinalysis macro (dipstick) panel (U)on 78-31-7444Pfgdygmdx, UA NegativeNegative - 4(70) +++ mg/dLNOMS HealthcareBlood, UANegativeNegative - 50 Jaguar/mcLNOMS HealthcareClarity, UAClearNOMS HealthcareColor, UAYellowNOMS HealthcareGlucose, UANegativeNegative - 2000(110) ++++ mg/dLNOMS Healthcare Interpretation and review of laboratory resultsAbnormalNOMS HealthcareKetones, UANegativeNegative - 160(16) ++++ mg/dLNOMS HealthcareLeukocytes, UATrace Negative - 500+++ Lizeth/mcLNOMS HealthcareNitrite, UANegativeNegative - Positive NOMS HealthcarepH, UA6.55 - 9NOMS HealthcareProtein, UATraceNegative - 2000(20) ++++ mg/dLNOMS HealthcareSpec Grav, UA1.031 - 1.03NOMS HealthcareUrobilinogen, UA0.20.2 - 12 mg/dLNOMS HealthcareNOMS HealthcareALL MISCELLANEOUS TESTon 21-90-7784BCKDXGHNUTKZW TESTCOMMENT.[facility] HealthcareComment on above:Test Ordered: [id number] Strep Gp B Culture+Rflx Strep Gp B Culture+Rflx Negative CB Reference Range: Negative Centers for Disease Control and Prevention (CDC) and [place] [employer] of Obstetricians and Gynecologists (ACOG) guidelines [...] resistance to clindamycin is noted. Performed at: [address] [id number] Ethnographer: Ender Win PhD, Phone: [phone] GROUP B STREP 156361 Group B Streptococcus Colonization Detection Culture With Re CLINISYNCNOMS HealthcareUrinalysis macro (dipstick) panel (U)on 10-22-2024 Bilirubin, UANegativeNegative - 4(70) +++ mg/dLNOMS HealthcareBlood, UANegative Negative - 50 Jaguar/mcLNOMS HealthcareClarity, UAClearNOMS HealthcareColor, UA YellowNOMS HealthcareGlucose, UANegativeNegative - 2000(110) ++++ mg/dLNOMS HealthcareInterpretation and review of laboratory resultsAbnormalNODE Healthcare Ketones, UANegativeNegative - 160(16) ++++ mg/dLNOMS HealthcareLeukocytes, UA PositiveNegative - 500+++ Lizeth/mcLNOMS HealthcareComment on above:smallNitrite, UANegativeNegative - PositiveNOMS HealthcarepH, UA8.55 - 9NOMS Healthcare Protein, UAPositiveNegative - 2000(20) ++++ mg/dLNOMS HealthcareComment on above:30Spec Grav, UA1.021 - 1.03NOMS HealthcareUrobilinogen, UA0.20.2 - 12 mg/dLNOMS HealthcareNOMS HealthcareUrinalysis macro (dipstick) panel (U)on 50-05-1605Reyxwbuhc, UANegativeNegative - 4(70) +++ mg/dLNOMS HealthcareBlood, UANegativeNegative - 50 Jaguar/mcLNOMS HealthcareClarity, UAClearNOMS Healthcare Color, UAYellowNOMS HealthcareGlucose, UANegativeNegative - 2000(110) ++++ mg/dL NOMS HealthcareInterpretation and review of laboratory resultsNormalNODE HealthcareKetones, UANegativeNegative - 160(16) ++++ mg/dLNOMS Healthcare Leukocytes, UANegativeNegative - 500+++ Lizeth/mcLNOMS HealthcareNitrite, UA NegativeNegative - PositiveNOMS HealthcarepH, UA75 - 9NOMS HealthcareProtein, UA NegativeNegative - 2000(20) ++++ mg/dLNOMS HealthcareSpec Grav, UA1.021 - 1.03 NOMS HealthcareUrobilinogen, UA1.00.2 - 12 mg/dLNOMS HealthcareNOMS HealthcareUS OB BPP W NON-STRESSon 30-22-6110P[place] [address] Ultrasound Report Signed Patient: ASH MARTINEZ MR#: [id number] : 2000 Acct:[id number] Age/Sex: 23 / F ADM Date: 09/29/24 Loc: [facility] Attending Dr: Harry Abbasi D.O. Ordering Physician: Harry Abbasi D.O. Date of Service: 09/29/24 Procedure(s): US OB BPP w non-stress Accession Number(s): [id number] cc: Harry Abbasi D.O.; SUM[place] MARES [place] [phone] Patient Name: ASH MARTINEZ MRN: [facility]:[id number] date: 2000 Sex: F Assigned Patient Location: [facility] Current Patient Location: Accession/Order Number: [id number] Exam Date: 09/29/2024 14:10 Report Date: 09/29/2024 16:08 At the request of: HARRY ABBASI Procedure: US OB BPP w non-stress [...] profile score 8/8. Electronically authenticated by: ESTIVEN PAINTER Date: 09/29/2024 16:08 Dictated By: Estiven Painter M.D. Signed By: 09/29/24 1612 DD/ 1608 TD/TT: Wink Cutter Operator:CULLENadiologmark, Radiologist, - 09/29/2024 [place] [id number] Ultrasound Report Signed Patient: ASH MARTINEZ MR#: [id number] : 2000 Acct:[id number] Age/Sex: 23 / F ADM Date: 09/29/24 Loc: [facility] Attending Dr: Harry Abbasi D.O. Ordering Physician: Harry Abbasi D.O. Date of Service: 09/29/24 Procedure(s): US OB BPP w non-stress Accession Number(s): [id number] cc: Harry Abbasi D.O.; [place] [address] Patient Name: AHS MARTINEZ MRN: [facility]:[id number] date: 2000 Sex: F Assigned Patient Location[facility] Current Patient Location: Accession/Order Number: [id number] Exam Date: 09/29/2024 14:10 Report Date: 09/29/2024 16:08 At the request of: HARRY ABBASI Procedure: US OB BPP w non-stress [...] profile score 8/8. Electronically authenticated by: ESTIVEN PAINTER Date: 09/29/2024 16:08 Dictated By: Estiven Painter M.D. Signed By: 09/29/24 1611 DD/ 1608 TD/TT: Wink Cutter Operator: ADRIAN HealthcareRadiology Study observation (narrative)ADRIAN RebolledoUS OB BPP W NON-STRESSOrdered By: Radiologist Radiology on 25-11-9820[facility] Work Phone: Urinalysis macro (dipstick) panel (U)on 09-25-2024 Bilirubin, UANegativeNegative - 4(70) +++ mg/dLNOMS HealthcareBlood, UANegative Negative - 50 Jaguar/mcLNOMS HealthcareClarity, UAClearNOMS HealthcareColor, UA YellowNOMS HealthcareGlucose, UANegativeNegative - 2000(110) ++++ mg/dLNOMS HealthcareInterpretation and review of laboratory resultsNormalNOMS Healthcare Ketones, UANegativeNegative - 160(16) ++++ mg/dLNOMS HealthcareLeukocytes, UA NegativeNegative - 500+++ Lizeth/mcLNOMS HealthcareNitrite, UANegativeNegative - PositiveNOMS HealthcarepH, UA75 - 9NOMS HealthcareProtein, UANegativeNegative - 2000(20) ++++ mg/dLNOMS HealthcareSpec Grav, UA1.011 - 1.03NOMS Healthcare Urobilinogen, UA0.20.2 - 12 mg/dLNOMS HealthcareNOMS HealthcareUS OB GROWTHon 25-23-2318[place] [address] Ultrasound Report Signed Patient: ASH MARTINEZ MR#: [id number] : 2000 Acct:[id number] Age/Sex: 23 / F ADM Date: 09/11/24 Loc: [facility] Attending Dr: Alyssa Bazan Ordering Physician: Alyssa Bazan Date of Service: 09/11/24 Procedure(s): US OB growth Accession Number(s): [id number] cc: Alyssa Bazan; [place] [address] Patient Name: ASH MARTINEZ MRN: [facility]:[id number] date: 2000 Sex: F Assigned Patient Location: [facility] Current Patient Location: [facility] Accession/Order Number: [id number] Exam Date: 09/11/2024 09:57 Report Date: 09/11/2024 12:32 At the request of: ALYSSA BAZAN Procedure: US OB growth EXAMINATION: US OB [...] Normal interval growth Electronically authenticated by: MARQUES MICHAEL Date: 09/11/2024 12:32 Dictated By: Marques Michael M.D. Signed By: 09/11/24 1235 DD/ 1232 TD/TT: Wink Cutter Operator:TBHRadiology, Radiologist, - 09/11/2024 [place] [address] Ultrasound Report Signed Patient: ASH MARTINEZ MR#: [id number] : 2000 Acct:[id number] Age/Sex: 23 / F ADM Date: 09/11/24 Loc: ADRIAN Attending Dr: Alyssa Bazna Ordering Physician: Alyssa Bazan Date of Service: 09/11/24 Procedure(s): US OB growth Accession Number(s): [id number] cc: Alyssa Bazan; [place] [address] Patient Name: ASH MARTINEZ MRN: [facility]:[id number] date: 2000 Sex: F Assigned Patient Location: [facility] Current Patient Location: [facility] Accession/Order Number: [id number] Exam Date: 09/11/2024 09:57 Report Date: 09/11/2024 12:32 At the request of: ALYSSA BAZAN Procedure: US OB growth EXAMINATION: US OB [...] Normal interval growth Electronically authenticated by: MARQUES MICHAEL Date: 09/11/2024 12:32 Dictated By: Marques Michael M.D. Signed By: 09/11/24 1235 DD/ 1232 TD/TT: Wink Cutter Operator: ADRIAN [facility] DaytonRadiology Study observation (narrative)[facility] St. JosephUS OB GROWTHOrdered By: Radiologist Radiology on 39-79-1274MOADMosaic Life Care at St. Joseph Work Phone: Urinalysis macro (dipstick) panel (U)on 09-11-2024 Bilirubin, UANegativeNegative - 4(70) +++ mg/dLNOMS HealthcareBlood, UANegative Negative - 50 Jaguar/mcLNOMS HealthcareClarity, UAClearNOMS HealthcareColor, UA YellowNOMS HealthcareGlucose, UANegativeNegative - 2000(110) ++++ mg/dLNOMS HealthcareInterpretation and review of laboratory resultsNormalNODE Healthcare Ketones, UANegativeNegative - 160(16) ++++ mg/dLNOMS HealthcareLeukocytes, UA NegativeNegative - 500+++ Lizeth/mcLNOMS HealthcareNitrite, UANegativeNegative - PositiveNOMS HealthcarepH, UA5.55 - 9NOMS HealthcareProtein, UANegativeNegative - 2000(20) ++++ mg/dLNOMS HealthcareSpec Grav, UA1.021 - 1.03NOMS Healthcare Urobilinogen, UA1.00.2 - 12 mg/dLNOSaint Luke's Health SystemNODE HealthcareUrinalysis macro (dipstick) panel (U)on 70-03-5144Mdochdqck, UANegativeNegative - 4(70) +++ mg/dL NOMS HealthcareBlood, UANegativeNegative - 50 Jaguar/mcLNODE HealthcareClarity, UA ClearNOMS HealthcareColor, UALight YellowNODE HealthcareGlucose, UANegative Negative - 2000(110) ++++ mg/dLNODE HealthcareInterpretation and review of laboratory resultsNormalMOUNTAINSTAR [facility]ALTHCARE HealthcareKetones, UANegativeNegative - 160(16) ++++ mg/dLMOUNTAINSTAR HEALTHCARE HealthcareLeukocytes, UANegativeNegative - 500+++ Lizeth/mcLNODE HealthcareNitrite, UANegativeNegative - PositiveNOMS HealthcarepH, UA5.55 - 9 NOMS HealthcareProtein, UANegativeNegative - 2000(20) ++++ mg/dLNODE Healthcare Spec Grav, UA1.0151 - 1.03NODE HealthcareUrobilinogen, UA1.00.2 - 12 mg/dLNODE HealthcareNOMS HealthcareALL CBC WITH AUTO DIFFon 24-00-1401QUTJQCMFK ABSOLUTE AUTO0.1NOMS HealthcareBasophils/100 WBC (Bld)0.4 %0.2 - 2.0 %[facility] Healthcare Eosinophils/100 WBC (Bld)1.2 %0.9 - 7.0 %NOMS HealthcareErythrocyte distribution width (RBC) [Ratio]13.2 %11.0 - 15.0 %NOMS HealthcareHematocrit (Bld) [Volume fraction]34.4 %Low36.0 - 48.0 %NOM HealthcareHemoglobin (Bld) [Mass/Vol]11.8 g/dLLow12.0 - 16.0 g/dLNOSaint Luke's Health SystemIMMATURE GRANULOCYTES ABS AUTO0.20HighNOSaint Luke's Health SystemImmature granulocytes/100 WBC (Bld)1.8 %High0.0 - 0.5 %NOM HealthcareInterpretation and review of laboratory resultsAbnoPottstown Hospital LYMPHOCYTES ABSOLUTE AUTO2.0NOSaint Luke's Health SystemLymphocytes/100 WBC (Bld)17.6 %Low 20.5 - 60.0 %NOMS [facility] YoungstownH (RBC) [Entitic mass]29.9 pg26.7 - 34.0 pgNODE HealthcareHC (RBC) [Mass/Vol]34.3 g/dL29.9 - 35.2 g/dLNODE HealthcareMCV (RBC) [Entitic vol]87.1 fL81.0 - 99.0 fLNODE HealthcareMONOCYTES ABSOLUTE AUTO0.7NODE HealthcareMonocytes/100 WBC (Bld)6.4 %1.7 - 12.0 %NOMS HealthcareNEUTROPHILS ABSOLUTE AUTO8.2HighNODE HealthcareNeutrophils/100 WBC (Bld)72.6 %43.0 - 75.0 % [facility] HealthcarePlatelet mean volume (Bld) [Entitic vol]10.2 fL9.5 - 13.5 fLMOUNTAINSTAR HEALTHCARE HealthcareTBH EO #0.1NOMS HealthcareTBH [id number] HealthcareTB RBC3.95LowNOMS HealthcareTBH WBC11.3HighMOUNTAINSTAR HEALTHCARE HealthcareCLINISYNCNOMS HealthcareGLUCOSE 1 HOURon 89-83-0567Wnrlekm [Mass/Vol]117 mg/dLNINF - 130 mg/dLMOUNTAINSTAR HEALTHCARE HealthcareCLINISYNC NOMS HealthcareUS OB INCOMPLETE ANATOMYon 71-65-2681[place] [address] Ultrasound Report Signed Patient: ASH MARTINEZ MR#: [id number] : 2000 Acct:[id number] Age/Sex: 23 / F ADM Date: 07/30/24 Loc: [facility] Attending Dr: Harry Abbasi D.O. Ordering Physician: Harry Abbasi D.O. Date of Service: 07/30/24 Procedure(s): US OB incomplete anatomy Accession Number(s): [id number] cc: Harry Abbasi D.O.; SUMMER MARES [address] [address] Patient Name: ASH MARTINEZ MRN: [id number] date: 2000 Sex: F Assigned Patient Location: [facility] Current Patient Location: [facility] Accession/Order Number: [id number] Exam Date: 07/30/2024 08:35 Report Date: 07/30/2024 [...] Normal observed anatomy Electronically authenticated by: MARQUES MICHAEL Date: 07/30/2024 09:49 Dictated By: Marques Michael M.D. Signed By: 07/30/24951 DD/ 8 TD/TT: Wink Cutter Operator:YARITZAHRadiology, Radiologist, MD - 07/30/2024 [place] [address] Ultrasound Report Signed Patient: ASH MARTINEZ MR#: [id number] : 2000 Acct:[id number] Age/Sex: 23 / F ADM Date: 07/30/24 Loc: NOMS Attending Dr: Harry Abbasi D.O. Ordering Physician: Harry Abbasi D.O. Date of Service: 07/30/24 Procedure(s): US OB incomplete anatomy Accession Number(s): [id number] cc: Harry Abbasi D.O.; SUM[place]ES [place] [phone] Patient Name: ASH MARTINEZ MRN: [id number] date: 2000 Sex: F Assigned Patient Location: [facility] Current Patient Location: [facility] Accession/Order Number: [id number] Exam Date: 07/30/2024 08:35 Report Date: 07/30/2024 [...] Normal observed anatomy Electronically authenticated by: MARQUES MICHAEL Date: 07/30/2024 09:49 Dictated By: Marques Michael M.D. Signed By: 07/30/2452 DD/ 8 TD/TT: Wink Cutter Operator: ADRIAN HealthcareRadiology Study observation (narrative)NOMS HealthcareUS OB INCOMPLETE ANATOMYOrdered By: Radiologist Radiology on 86-07-3562ACVVMosaic Life Care at St. Joseph Work Phone: Urinalysis macro (dipstick) panel (U)on 07-30-2024 Bilirubin, UANegativeNegative - 4(70) +++ mg/dLNOMS HealthcareBlood, UANegative Negative - 50 Jaguar/mcLNOMS HealthcareClarity, UAClearNOMS HealthcareColor, UA YellowNOMS HealthcareGlucose, UANegativeNegative - 2000(110) ++++ mg/dLNOMS HealthcareInterpretation and review of laboratory resultsNormalNOMS Healthcare Ketones, UANegativeNegative - 160(16) ++++ mg/dLNOMS HealthcareLeukocytes, UA NegativeNegative - 500+++ Lizeth/mcLNOMS HealthcareNitrite, UANegativeNegative - PositiveNOMS HealthcarepH, UA6.55 - 9NOMS HealthcareProtein, UANegativeNegative - 2000(20) ++++ mg/dLNOMS HealthcareSpec Grav, UA1.0151 - 1.03N[facility]S Healthcare Urobilinogen, UA0.20.2 - 12 mg/dLNODE HealthcareNOMS HealthcarePOCT Influenza A/Influenza B/SARS-COV-2 Veritoron 10-52-4416Iayycala Poct Influenza A Antigen NegativeBlanchard Valley Health System [facility] SystemExternal Poct Influenza B AntigenNegative [facility] SouthParkARS-CoV-2 (COVID-19) Ag IA.rapid Ql (Resp)Negative OSS HealthNo Panel InformationOrdered By: Radiologist Radiology on 34-00-1623NMNK [employer] Work Phone: No Panel Informationon 59-31-0992Zbgjtdlgr Study observation (narrative)KHLOEEmma Alyce OB ANATOMYon 43-00-1785[place] [address] Ultrasound Report Signed Patient: ASH MARTINEZ MR#: [id number] : 2000 Acct:[id number] Age/Sex: 23 / F ADM Date: 07/02/24 Loc: NOMS Attending Dr: Harry Abbasi D.O. Ordering Physician: Harry Abbasi D.O. Date of Service: 07/02/24 Procedure(s): US OB anatomy Accession Number(s): [id number] cc: Harry Abbasi D.O.; [place] [address] Patient Name: ASH MARTINEZ MRN: [facility]:[id number] date: 2000 Sex: F Assigned Patient Location: [facility] Current Patient Location: [facility] Accession/Order Number: [id number] Exam Date: 07/02/2024 08:30 Report Date: 07/02/2024 09:32 At the request of: HARRY ABBASI Procedure: US OB anatomy EXAMINATION: US [...] July 10, 2007. Electronically authenticated by: MARQUES MICHAEL Date: 07/02/2024 09:32 Dictated By: Marques Michael M.D. Signed By: 07/02/24934 DD/ 1 TD/TT: Wink Cutter Operator:TBHRadiology, Radiologist, - 07/02/2024 [place] [address] Ultrasound Report Signed Patient: ASH MARTINEZ MR#: [id number] : 2000 Acct:[id number] Age/Sex: 23 / F ADM Date: 07/02/24 Loc: NOMS Attending Dr: Harry Abbasi D.O. Ordering Physician: Harry Abbasi D.O. Date of Service: 07/02/24 Procedure(s): US OB anatomy Accession Number(s): [id number] cc: Harry Abbasi D.O.; [place] [address] Patient Name: ASH MARTINEZ MRN: [facility]:[id number] date: 2000 Sex: F Assigned Patient Location: NOMS Current Patient Location: NOMS Accession/Order Number: [id number] Exam Date: 07/02/2024 08:30 Report Date: 07/02/2024 09:32 At the request of: HARRY ABBASI Procedure: US OB anatomy EXAMINATION: US [...] July 10, 2007. Electronically authenticated by: MARQUES MICHAEL Date: 07/02/2024 09:32 Dictated By: Marques Michael M.D. Signed By: 07/02/24934 DD/ 1 TD/TT: Wink Cutter Operator: ADRIAN Mead OB TRANSVAGINALocampbell 05-62-[address] [address] Ultrasound Report Signed Patient: ASH MARTINEZ MR#: [id number] : 2000 Acct:[id number] Age/Sex: 23 / F ADM Date: 07/02/24 Loc: NOMS Attending Dr: Harry Abbasi D.O. Ordering Physician: Harry Abbasi D.O. Date of Service: 07/02/24 Procedure(s): US OB transvaginal Accession Number(s): [id number] cc: Harry Abbasi D.O.; [place] [address] Patient Name: ASH MARTINEZ MRN: [facility]:[id number] date: 2000 Sex: F Assigned Patient Location: NOMS Current Patient Location: [facility] Accession/Order Number: [id number] Exam Date: 07/02/2024 08:30 Report Date: 07/02/2024 09:32 At the request of: HARRY ABBASI Procedure: US OB transvaginal EXAMINATION: US [...] by current US: 20 weeks 4 days MYESAH by current US: 2024-11-15 US/US OB transvaginal IMPRESSION: Suboptimal and nonvisualization detailed above Otherwise normal anatomy scan Closed cervix measuring 4 cm in length *Reference: AIUM Practice Guideline for the performance of Obstetric Ultrasound Examinations, July 10, 2007. Electronically authenticated by: MARQUES MICHAEL Date: 07/02/2024 09:32 Dictated By: Marques Michael M.D. Signed By: 07/02/24934 DD/ 1 TD/TT: Wink Cutter Operator:TBHRadiology, Radiologist, - 07/02/2024 [place] [address] Ultrasound Report Signed Patient: ASH MARTINEZ MR#: [id number] : 2000 Acct:[id number] Age/Sex: 23 / F ADM Date: 07/02/24 Loc: NOMS Attending Dr: Harry Abbasi D.O. Ordering Physician: Harry Abbasi D.O. Date of Service: 07/02/24 Procedure(s): US OB transvaginal Accession Number(s): [id number] cc: Harry Abbasi D.O.; [place] [address] Patient Name: ASH MARTINEZ MRN: [facility]:[id number] date: 2000 Sex: F Assigned Patient Location: NOMS Current Patient Location: NOMS Accession/Order Number: [id number] Exam Date: 07/02/2024 08:30 Report Date: 07/02/2024 09:32 At the request of: HARRY ABBASI Procedure: US OB transvaginal EXAMINATION: US [...] July 10, 2007. Electronically authenticated by: MARQUES MICHAEL Date: 07/02/2024 09:32 Dictated By: Marques Michael M.D. Signed By: 07/02/2435 DD/ TD/TT: Wink Cutter Operator: ADRIAN HealthcareUrinalysis macro (dipstick) panel (U)on 42-71-5083Mylffseao, UA PositiveNegative - 4(70) +++ mg/dLNOMS HealthcareComment on above:smallBlood, UA NegativeNegative - 50 Jaguar/mcLNOMS HealthcareClarity, UAClearNOMS Healthcare Color, UAYellowNOMS HealthcareGlucose, UANegativeNegative - 2000(110) ++++ mg/dL NOMS HealthcareInterpretation and review of laboratory resultsAbnormalNOMS HealthcareKetones, UAPositiveNegative - 160(16) ++++ mg/dLNOMS HealthcareComment on above:15Leukocytes, UANegativeNegative - 500+++ Lizeth/mcLNOMS Healthcare Nitrite, UANegativeNegative - PositiveNOMS HealthcarepH, UA5.55 - 9NOMS HealthcareProtein, UATraceNegative - 2000(20) ++++ mg/dLNOMS HealthcareSpec Grav, UA1.0301 - 1.03NOMS HealthcareUrobilinogen, UA0.20.2 - 12 mg/dLNOMS HealthcareNOMS HealthcareAFP, SERUM, OPEN SPINA BIFIDAon 14-89-6837YDZ MOM1.17. [facility] St. JosephAFP VALUE27.6 ng/mL.[facility] HealthcareCOMMENT:Comment.[facility] HealthcareComment on above:Vandana Nina, Ph.D., [facility] Director References: Available Upon Request. Multiples Of Median Cutoffs For AFP Elevations Garg 2.5 Black 2.8 IDD 2.0 Twins 4.5 Abbreviation Definitions IDD - Insulin Dep Diabetes OSBR - Open Spina Bifida Risk For further inquiries contact [employer] [facility] at [phone]. This test was developed and its performance characteristics determined by [employer]. It has not been cleared or approved by the Food and Drug Administration. Performed at: [facility] [employer] [facility] [place], [place] [id number] Ethnographer: Prashant Phoenix [facility], Phone: [phone] GEST. AGE ON COLLECTION DATE15.6. weeksNODE HealthcareGESTAT. AGE BASED ON Ultrasound.[facility] HealthcareComment on above:15.6 on 05/29/2024 Recalculations are not recommended when gestational dating by LMP and ultrasound are within 10 days. INSULIN DEP DIABETESNo.[facility] HealthcareINTERPRETATIONComment.[facility] Comment on above:Interpretation: Screen Negative This result [...] Customer Services to discuss available options. The [employer] recommends amniocentesis be offered to women age 35 and older. MATERNAL AGE AT EDD21.9. yrNOMS HealthcareMULTIPLE GESTATIONNo.NOM Healthcare OSBR RISK 1 PT4173.NOMS HealthcareRACECaucasian.[facility] HealthcareRESULTSReport. [facility] HealthcareTEST RESULTS:Negative.[facility] JjvddrymwbGZORKM213. lbsNOMS HealthcarePREGNANCY N N ULTRASOUND [id number] 4 15 N 1 Y 249 N [...] HealthcareNEISSERIA GONORRHOEAENot detectedNOMS HealthcareTRICHOMONAS VAGINALIS0.000NOMS HealthcareTRICHOMONAS VAGINALISNot detectedNOMS HealthcareNODE HealthcareCytology Cervical or vaginal smear or scraping studyon 68-96-6369QWFZ HealthcareUrinalysis macro (dipstick) panel (U) on 15-36-0440Zgafhjisx, UANegativeNegative - 4(70) +++ mg/dLNODE Healthcare Blood, UANegativeNegative - 50 Jaguar/mcLNOMS HealthcareClarity, UAClearNOMS HealthcareColor, UAAmberNOMS HealthcareGlucose, UANegativeNegative - 2000(110) ++++ mg/dLNOMS HealthcareInterpretation and review of laboratory resultsNormal NOMS HealthcareKetones, UANegativeNegative - 160(16) ++++ mg/dLNOMS Healthcare Leukocytes, UANegativeNegative - 500+++ Lizeth/mcLNOMS HealthcareNitrite, UA NegativeNegative - PositiveNOMS HealthcarepH, UA7.05 - 9NOMS HealthcareProtein, UANegativeNegative - 2000(20) ++++ mg/dLNOMS HealthcareSpec Grav, UA1.0101 - 1.03NOMS HealthcareUrobilinogen, UA0.20.2 - 12 mg/dLNOMS HealthcareNOMS HealthcareTBH BOX TEST SENT OUTon 34-03-6248FGB TEST SENT OUT05/11/24NODE HealthcareCLINISYNCNOMS HealthcareALL RUBELLA IGG ABon 68-13-1233ARKAAMS ANTIBODIES, IGG6.75Immune >0.99 indexNOMS HealthcareComment on above:Non-immune <0.90 Equivocal 0.90 - 0.99 Immune >0.99 Performed at: [facility] [id number] Ethnographer: Ender Win PhD, Phone: [phone] HBSAG SCREENon 96-60-2670CTUGN SCREENNegativeNegativeNOMS HealthcareComment on above:Performed at: [facility] [id number] Ethnographer: Ender Win PhD, Phone: [phone] HCV ANTIBODY RFX TO QUANT PCRon 64-22-9488GRF ABNon-ReactiveNon ReactiveNODE HealthcareINTERPRETATION:Comment.NOMS HealthcareComment on above:Not infected with HCV unless early or acute infection is suspected (which may be delayed in an immunocompromised individual), or other evidence exists to indicate HCV infection. HIV AB/P24 AG WITH REFLEXon 00-40-6626DMT AB/P24 AG SCREENNon-ReactiveNon ReactiveNOMS HealthcareComment on above:HIV-1/HIV-2 antibodies and HIV-1 p24 antigen were NOT detected. There is no laboratory evidence of HIV infection. HIV Negative Performed at: [address] [id number] Ethnographer: Ender Win PhD, Phone: [phone] No Panel Informationon 81-39-4378GBQIBZEKGUGJM HealthcareCLINISYNCNOMS HealthcareRAPID PLASMA REAGIN, QUANTon 18-09-1929EUZWJ PLASMA REAGIN, QUANT Non-ReactiveNonRea<1:1 titerNOMS HealthcareComment on above:Please Note: This test does not meet current guidelines for screening and diagnosis of syphilis. This test is intended for following treatment response in patients being treated for syphilis infection. To screen for syphilis infection, a reflex cascade that includes both RPR and a treponema-specific assay should be utilized, such as Treponema pallidum (Syphilis) Screening Anderson (811151) or Rapid Plasma Reagin (RPR) Test With Reflex to Quantitative RPR and Confirmatory Treponema pallidum Antibodies (212215). Performed at: [address] [id number] Ethnographer: Ender Win PhD, Phone: [phone] ALL CBC WITH AUTO DIFFon 30-97-6621OITDWATTK ABSOLUTE AUTO0.1NOMS Healthcare Basophils/100 WBC (Bld)0.7 %0.2 - 2.0 %NOMS HealthcareEosinophils/100 WBC (Bld) 1.6 %0.9 - 7.0 %NOMS HealthcareErythrocyte distribution width (RBC) [Ratio]12.8 %11.0 - 15.0 %NOMS HealthcareHematocrit (Bld) [Volume fraction]37.8 %36.0 - 48.0 %NOMS HealthcareHemoglobin (Bld) [Mass/Vol]13.2 g/dL12.0 - 16.0 g/dLNOMS HealthcareIMMATURE GRANULOCYTES ABS AUTO0.01NOMS HealthcareImmature granulocytes/100 WBC (Bld)0.1 %0.0 - 0.5 %NOMS HealthcareLYMPHOCYTES ABSOLUTE AUTO1.7NOMS HealthcareLymphocytes/100 WBC (Bld)22.8 %20.5 - 60.0 %NOMS HealthcareMCH (RBC) [Entitic mass]29.0 pg26.7 - 34.0 pgPerry County Memorial HospitalHC (RBC) [Mass/Vol]34.9 g/dL29.9 - 35.2 g/dLPerry County Memorial HospitalV (RBC) [Entitic vol]83.1 fL 81.0 - 99.[address] JosephMONOCYTES ABSOLUTE AUTO0.5[facility] Monocytes/100 WBC (Bld)6.0 %1.7 - 12.0 %[facility] St. JosephNEUTROPHILS ABSOLUTE AUTO 5.2NOMS HealthcareNeutrophils/100 WBC (Bld)68.8 %43.0 - 75.0 %[facility] Platelet mean volume (Bld) [Entitic vol]10.0 fL9.5 - 13.[address] JosephTBH EO #0.1NOMS [facility] DaytonTB XMT231XTCZSaint Luke's Health SystemTB RBC4.55NOSaint Luke's Health SystemTB WBC 7.6NOSaint Luke's Health SystemCLINISYNCNBAILEY MEDICAL [facility] – [place], [place] HealthcareALL TYPE AND SCREENon 52-03-9675UHB and Rh group Nom (Bld)Blood group B Rh(D) positiveLutheran Hospital ,CLINISYNashville General Hospital at MeharryMLR HEMOGLOBIN A1Con 86-63-3107Skxhntq [Mass/Vol]85 mg/dLMosaic Life Care at St. JosephHbA1c (Bld) [Mass fraction]4.6 %4.5 - 6.2 %[facility] Comment on above:ADA RECOMMENDED LIMIT 4.0 - 6.0 ADA THERAPEUTIC TARGET < 7.0 ACTION SUGGESTED > 7.0 Special Care HospitalUS OB TRANSVAGINALon 62-29-1990[place] [address] Ultrasound Report Signed Patient: ASH MARTINEZ MR#: [id number] : 2000 Acct:[id number] Age/Sex: 23 / F ADM Date: 05/11/24 Loc: NOMS Attending Dr: Harry Abbasi D.O. Ordering Physician: Harry Abbasi D.O. Date of Service: 05/11/24 Procedure(s): US OB transvaginal Accession Number(s): [id number] cc: Harry Abbasi D.O.; [place] [address] Patient Name: ASH MARTINEZ MRN: [facility]:[id number] date: 2000 Sex: F Assigned Patient [facility] Current Patient Location: LAB Accession/Order Number: [id number] Exam Date: 05/11/2024 08:31 Report Date: 05/11/2024 09:50 At the request of: HARRY ABBASI Procedure: US OB transvaginal EXAMINATION: US [...] Single live intrauterine . Electronically authenticated by: ARSEN FONG Date: 05/11/2024 09:50 Dictated By: Arsen Fong M.D. Signed By: 05/11/24 0953 DD/ TD/TT: Wink Cutter Operator:YARITZAHRadiology, Radiologist, - 05/11/2024 [place] [address] Ultrasound Report Signed Patient: ASH MARTINEZ MR#: [id number] : 2000 Acct:[id number] Age/Sex: 23 / F ADM Date: 05/11/24 Loc: [facility] Attending Dr: Harry Abbasi D.O. Ordering Physician: Harry Abbasi D.O. Date of Service: 05/11/24 Procedure(s): US OB transvaginal Accession Number(s): [id number] cc: Harry Abbasi D.O.; [place] [address] Patient Name: ASH MARTINEZ MRN: [facility] [facility]:[id number] date: 2000 Sex: F Assigned Patient Location: [facility] Current Patient Location: LAB Accession/Order Number: [id number] Exam Date: 05/11/2024 08:31 Report Date: 05/11/2024 09:50 At the request of: HARRY ABBASI Procedure: US OB transvaginal EXAMINATION: US [...] Single live intrauterine . Electronically authenticated by: ARSEN FONG Date: 05/11/2024 09:50 Dictated By: Arsen Fong M.D. Signed By: 05/11/24 0953 DD/ TD/TT: Wink Cutter Operator: ADRIAN HealthcareRadiology Study observation (narrative)[facility] HealthcareUS OB TRANSVAGINALOrdered By: Radiologist Radiology on 30-35-4390[facility] Work Phone: US OB TRANSVAGINALon [phone] [address] Ultrasound Report Signed Patient: ASH MARTINEZ MR#: [id number] : 2000 Acct:[id number] Age/Sex: 23 / F ADM Date: 04/18/24 Loc: [facility] Attending Dr: Harry Abbasi D.O. Ordering Physician: Harry Abbasi D.O. Date of Service: 04/18/24 Procedure(s): US OB transvaginal Accession Number(s): [id number] cc: Harry Abbasi D.O.; [place] [phone] Patient Name: ASH MARTINEZ MRN: [id number] date: 2000 Sex: F Assigned Patient Location: [facility] Current Patient Location: [facility] Accession/Order Number: [id number] Exam Date: 04/18/2024 10:00 Report Date: 04/18/2024 10:56 At the request of: HARRY ABBASI Procedure: US OB transvaginal EXAMINATION: US [...] weeks 4 days Electronically authenticated by: MARQUES MICHAEL Date: 04/18/2024 10:56 Dictated By: Marques Michael M.D. Signed By: 04/18/24 1059 DD/ 1056 TD/TT: Wink Cutter Operator:YARITZAHRadiology, Radiologist, MD - 04/18/[address] [address] Ultrasound Report Signed Patient: ASH MARTINEZ MR#: [id number] : 2000 Acct:[id number] Age/Sex: 23 / F ADM Date: 04/18/24 Loc: [facility] Attending Dr: Harry Abbasi D.O. Ordering Physician: Harry Abbasi D.O. Date of Service: 04/18/24 Procedure(s): US OB transvaginal Accession Number(s): [id number] cc: Harry Abbasi D.O.; [place] [phone] Patient Name: ASH MARTINEZ MRN: [facility]:[id number] date: 2000 Sex: F Assigned Patient Location: [facility] Current Patient Location: [facility] Accession/Order Number: [id number] Exam Date: 04/18/2024 10:00 Report Date: 04/18/2024 10:56 At the request of: HARRY ABBASI Procedure: US OB transvaginal EXAMINATION: US [...] weeks 4 days Electronically authenticated by: MARQUES MICHAEL Date: 04/18/2024 10:56 Dictated By: Marques Michael M.D. Signed By: 04/18/24 1059 DD/ 1056 TD/TT: Wink Cutter Operator: ADRIAN HealthcareRadiology Study observation (narrative)[facility] HealthcareUS OB TRANSVAGINALOrdered By: Radiologist Radiology on 35-89-5458[facility] Work Phone: tbH PREG QUANT HCGon 95-06-8398UCI WOKDTWKSWIIO28 mIU/mLNOMS HealthcareComment on above:5-50 0.2-1 WEEK 50-500 1-2 WEEKS 100-5,000 2-3 WEEKS 500-10,000 3-4 WEEKS 1,000-50,000 4-5 WEEKS 10,000-100,000 5-6 WEEKS 15,000-200,000 6-8 WEEKS 10,000-100,000 2-3 MONTHS CLINISYNCNOMS HealthcareUS OB TRANSVAGINALon 93-56-9260[place]nbArn[place] [address] Ultrasound Report Signed Patient: ASH MARTINEZ MR#: [id number] : 2000 Acct:[id number] Age/Sex: 23 / F ADM Date: 02/20/24 Loc: LAB Attending Dr: Harry Abbasi D.O. Ordering Physician: Harry Abbasi D.O. Date of Service: 02/20/24 Procedure(s): US OB transvaginal Accession Number(s): [id number] cc: Harry Abbasi D.O.; [place] [address] Patient Name: ASH MARTINEZ MRN: [id number] date: 2000 Sex: F Assigned Patient Location: LAB Current Patient Location: LAB Accession/Order Number: [id number] Exam Date: 02/20/2024 09:15 Report Date: 02/20/2024 10:05 At the request of: HARRY ABBASI Procedure: US OB transvaginal EXAMINATION: US [...] or ectopic identified Electronically authenticated by: MARQUES MICHAEL Date: 02/20/2024 10:05 Dictated By: Marques Michael M.D. Signed By: 02/20/241006 DD/ 1005 TD/TT: Wink Cutter Operator:YARITZAHRadiology, Radiologist, - 02/20/2024 [place] [address] Ultrasound Report Signed Patient: ASH MARTINEZ MR#: [id number] : 2000 Acct:[id number] Age/Sex: 23 / F ADM Date: 02/20/24 Loc: LAB Attending Dr: Harry Abbasi D.O. Ordering Physician: Harry Abbasi D.O. Date of Service: 02/20/24 Procedure(s): US OB transvaginal Accession Number(s): [id number] cc: Harry Abbasi D.O.; [place] [address] Patient Name: ASH MARTINEZ MRN: [id number] date: 2000 Sex: F Assigned Patient Location: LAB Current Patient Location: LAB Accession/Order Number: [id number] Exam Date: 02/20/2024 09:15 Report Date: 02/20/2024 10:05 At the request of: HARRY ABBASI Procedure: US OB transvaginal EXAMINATION: US [...] or ectopic identified Electronically authenticated by: MARQUES MICHAEL Date: 02/20/2024 10:05 Dictated By: Marques Michael M.D. Signed By: 02/20/241006 DD/ 1005 TD/TT: Wink Cutter Operator: ADRIAN HealthcareRadiology Study observation (narrative)[facility] HealthcareUS OB TRANSVAGINALOrdered By: Radiologist Radiology on 26-31-4365YUQWMosaic Life Care [facility] St. [facility] Work Phone: cBC AND AUTO DIFFon 50-54-9758TNLBEQFW BASOPHIL0.2 X10E9/LNormal0.0-0.2Pro[facility] HospitalComment on above:Performed By: #### CBCA, FEPR, 6-4 #### [facility] ([id number]) [address], [address] [place], [place] [address]TYBVQCDR NEUTROPHIL3.1 X10E9/LNormal1.5-6.6ProNorwalk Memorial Hospitalca [place] HospitalComment on above:Performed By: #### CBCA, FEPR, 6-4 #### [facility] ([id number]) [address], [address] [place], [place] [address]Kskyfftng/100 WBC (Bld)3.0 %NormalWadsworth-Rittman Hospital Comment on above:Performed By: #### CBCA, FEPR, 6-4 #### [facility] ([id number]) [address], [address] [place], [place] [address]Rrsvvpuhbvg (Bld) [#/Vol]0.2 10*3/uLNormal0.0-0.4ProMedina HospitalComment on above:Performed By: #### CBCA, FEPR, 6-4 #### [facility] ([id number]) [address], [address] [place], [place] [address]Efbhowwjcnx/100 WBC (Bld)3.4 %NormalWadsworth-Rittman Hospital Comment on above:Performed By: #### CBCA, FEPR, 6-4 #### [facility] ([id number]) [address], [address] [place], [place] [address]Qcjfjplwpgs distribution width (RBC) [Ratio]13.3 %Normal 11.5-15.0ProProtestant Deaconess Hospital HospitalComment on above:Performed By: #### CBCMiguel, FEPR, 6-4 #### [facility] ([id number]) [address], [address] [place], [place] [address]Hqthorwmuh (Bld) [Volume fraction]40.3 %Eifbpc29-29RrqAephxd [place] HospitalComment on above:Performed By: #### CBCMiguel, FEPR, 2275-4 #### [facility] ([id number]) [address], [address] [place], [place] [address]Yofxnssncy (Bld) [Mass/Vol]13.8 g/uQImabyk67.7-15.5ProMedOhioHealth Van Wert Hospital HospitalComment on above:Performed By: #### CBCMiguel, FEPR, 2275- #### [facility] ([id number]) [address], [address] [place], [place] [address]Yxbabutduhp (Bld) [#/Vol]2.1 10*3/uLNormal1.0-3.5ProMedOhioHealth Van Wert Hospital HospitalComment on above:Performed By: #### CBCMiguel, FEPR, 2276-01 #### [facility] ([id number]) [address], [address] [place], [place] [address]Mguzlqatjit/100 WBC (Bld)35.1 %NormalProProtestant Deaconess Hospital Hospital Comment on above:Performed By: #### CBCA, FEPR, 2276-01 #### [facility] ([id number]) [address], [address] [place], [place] [address]XZX (RBC) [Entitic mass]29.0 isYhshih73-19GsqJagers [place] HospitalComment on above:Performed By: #### CBCA, FEPR, 2275-4 #### [facility] ([id number]) [address], [address] [place], [place] [address]KVSW (RBC) [Mass/Vol]34.2 g/gLNxhyjb51-58SppTguaup [place] HospitalComment on above:Performed By: #### RODGER FEPR, 2275-4 #### [facility] ([id number]) [address], [address] [place], [place] [address]ECS (RBC) [Entitic vol]85 pYBisifz38-687CgfRiswyp [place] HospitalComment on above:Performed By: #### CBCMiguel FEPR, 2275-4 #### [facility] ([id number]) [address], [address] [place], [place] [address]Ygkjmmoqx (Bld) [#/Vol]0.5 10*3/uLNormal0-0.9ProProtestant Deaconess Hospital HospitalComment on above:Performed By: #### CBCMiguel, FEPR, 2275-4 #### [facility] ([id number]) [address], [address] [place], [place] [address]Suqdwohwk/100 WBC (Bld)7.5 %NormalWadsworth-Rittman Hospital Comment on above:Performed By: #### RODGER, FEPR, 2275-4 #### [facility] ([id number]) [address], [address] [place], [place] [address]Waxalznnhsn/100 WBC (Bld)51.0 %NormalWadsworth-Rittman Hospital Comment on above:Performed By: #### CBCMiguel, FEPR, 2275-4 #### [facility] ([id number]) [address], [address] [place], [place] [address]Oifvccpa mean volume (Bld) [Entitic vol]8.8 fLNormal7-12 [facility] HospitalComment on above:Performed By: #### CBCA, FEPR, 2275-4 #### [facility] ([id number]) [address], [address] [place], [place] [address]Ksdrzmpst (Bld) [#/Vol]272 10*3/kSKzgbwi362-774EbbAbifyd [place] HospitalComment on above:Performed By: #### CBCMiguel, FEPR, 2276-4 #### [facility] ([id number]) [address], [address] [place], [place] [address]HBG COUNT4.75 X10E12/LNormal3.80-5.20[facility] Comment on above:Performed By: #### CBCMiguel, FEPR, 2276-4 #### [facility] ([id number]) [address] [place], [place] [address]FTW (Bld) [#/Vol]6.1 10*3/uLNormal4.0-11.0Wadsworth-Rittman HospitalComment on above:Performed By: #### CBCMiguel, FEPR, 2276-4 #### [facility] ([id number]) [address], [address] [place], [place] [address]QYQ auto differentialon 87-58-4339Rhvkmvnbn (Bld) [#/Vol]0.2 10*3/uLBlanchard Valley [facility] SystemBasophils/100 WBC (Bld)3.0 %[facility] HospitalEosinophils (Bld) [#/Vol]0.2 10*3/uLGrand Lake Joint Township District Memorial HospitalEosinophils/100 WBC (Bld)3.4 %[facility] SystemErythrocyte distribution width (RBC) [Ratio]13.3 %11.5 - 15.0 %[facility] SystemHematocrit (Bld) [Volume fraction]40.3 %35 - 47 %[facility] SystemHemoglobin (Bld) [Mass/Vol]13.8 g/dL11.7 - 15.5 g/dLGrand Lake Joint Township District Memorial HospitalLymphocytes (Bld) [#/Vol]2.1 10*3/uL [facility] SystemLymphocytes/100 WBC (Bld)35.1 %[facility] CampusH (RBC) [Entitic mass]29.0 pg27 - 34 [facility] Medical CenterMCHC (RBC) [Mass/Vol]34.2 g/dL32 - 36 g/dLGrand Lake Joint Township District Memorial HospitalMCV (RBC) [Entitic vol]85 fL80 - 100 [facility]–SmithvilleMonocytes (Bld) [#/Vol]0.5 10*3/uLGrand Lake Joint Township District Memorial HospitalMonocytes/100 WBC (Bld)7.5 %[facility] Memorial HospitalNeutrophils (Bld) [#/Vol]3.1 10*3/uLGrand Lake Joint Township District Memorial HospitalNeutrophils/100 WBC (Bld)51.0 % [facility] Memorial HospitalPlatelet mean volume (Bld) [Entitic vol]8.8 fL7 - 12 fL [facility] SystemPlatelets (Bld) [#/Vol]272 10*3/[facility] RBC (Bld) [#/Vol]4.75 10*6/[facility] HospitalWBC corrected for nucl RBC Auto (Bld) [#/Vol]6.1PPhoenixville HospitalFERRITINon 01-02-1830Ywadowdu [Mass/Vol]50 ng/hVOfmnrc67-594NmpEgkxypWadsworth-Rittman Hospital Comment on above:Performed By: #### CBCA, FEPR, 6-4 #### [facility] ([id number]) [address] [place], [place] [address]Tvdesmsiaj 21-49-9724Ztvmbylu [Mass/Vol]50 ng/mL11 - 307 ng/mL [facility] Memorial HospitalFerritin [Mass/Vol]on 38-39-4340NtjAprljlCincinnati Children's [facility] IRON PROFILEon 70-08-8976Ymec [Mass/Vol]59 ug/iIQhnchv25-155XodZrqtyoWadsworth-Rittman HospitalComment on above:Performed By: #### CBCA, FEPR, 6-4 #### [facility] ([id number]) [address], [address] [place], [place] [address]FTHK MFKPZUU739 ug/wRIilukh882-047AdmYswcnuWadsworth-Rittman Hospital Comment on above:Performed By: #### CBCA, FEPR, 2276-4 #### [facility] ([id number]) [address] [place], [place] [address]NAFE XVKHKGUJWP17 % EWZWZDNCTNFlrrij58-61EkmRqefrv [place] HospitalComment on above:Performed By: #### CBCA, FEPR, 2276-4 #### [facility] ([id number]) [address], [address] [place], [place] [address]Jkvi and TIBCon 00-00-0419Arui [Mass/Vol]59 ug/dL50 - 170 ug/dL [facility] SystemIron binding capacity [Mass/Vol]384 ug/dL250 - 425 ug/dL [facility] SystemIron saturation [Mass fraction]15ProPrairie Ridge Health SystemTBH PREG QUANT HCGon 68-73-3695HQH QUANTITATIVE<1mIU/mL [facility] HealthcareComment on above:5-50 0.2-1 WEEK 50-500 1-2 WEEKS 100-5,000 2-3 WEEKS 500-10,000 3-4 WEEKS 1,000-50,000 4-5 WEEKS 10,000-100,000 5-6 WEEKS 15,000-200,000 6-8 WEEKS 10,000-100,000 2-3 MONTHS CLINISYNCNOMS HealthcareCBC AUTO DIFFon 67-48-3513NRVC #0.1 103/ulNormal0.0-0.1 The [facility] HospitalComment on above:Performed By: #### CBC #### [facility] [address] [place] [address] Dr. Kristie Francoisphils/100 WBC (Bld)0.5 %Normal0.2-2.0[facility] Comment on above:Performed By: #### CBC #### [facility] [address] [place] [address] Dr. Kristie Culver #0.2 103/ulNormal0.0-0.7The [facility] HospitalComment on above: Performed By: #### CBC #### [facility] [address] [place] [address] Dr. Kristie Deutschosinophils/100 WBC (Bld)2.0 %Normal0.9-7.0The [facility] Comment on above:Performed By: #### CBC #### [facility] [address] [place] [address] [address] Kristie Deutschrythrocyte distribution width (RBC) [Ratio]12.0 %Ofqsjl79.0-15.0 The [facility] HospitalComment on above:Performed By: #### CBC #### [facility] [address] [place] [address] Dr. Kristie MarreroHematocrit (Bld) [Volume fraction]38.0 %Wrcktt10.0-48.0The [facility] HospitalComment on above:Performed By: #### CBC #### [facility] [address] [place] [address] Dr. Kristie MarreroHemoglobin (Bld) [Mass/Vol]13.3 g/fCNeuxrm71.0-16.0The [facility] HospitalComment on above:Performed By: #### CBC #### [facility] [address] [place] [address] Dr. Kristie Dupree #0.04 10e3/ulCritically high0.00-0.03The [facility] Comment on above:Performed By: #### CBC #### [facility] [address] [place] [address] Dr. Kristie Dupree %0.4 %Normal0.0-0.5The [facility] HospitalComment on above: Performed By: #### CBC #### [facility] [address] [place] [address] Dr. Kristie GodinezMPH #1.3 103/ulNormal1.2-3.8The [facility] HospitalComment on above:Performed By: #### CBC #### [facility] [address] [place] [address] Dr. Kristie Godinezmphocytes/100 WBC (Bld)12.3 %Critically low20.5-60.0The [facility] HospitalComment on above:Performed By: #### CBC #### [facility] [address] [place] [address] Dr. Kristie ParhamUAL DIFF REQNONormalThe [facility] HospitalComment on above: Performed By: #### CBC #### [facility] [address] [place] [address] Dr. Kristie Godinez (RBC) [Entitic mass]29.2 zwUaclfp59.7-34.0The [facility] HospitalComment on above:Performed By: #### CBC #### [facility] [address] [place] [address] Dr. Kristie Godinez (RBC) [Mass/Vol]35.0 g/zHObnjak15.9-35.2The [facility] HospitalComment on above:Performed By: #### CBC #### [facility] [address] [place] [address] Dr. Kristie Godinez (RBC) [Entitic vol]83.3 vSQkyhpj80.0-99.0The [facility] HospitalComment on above:Performed By: #### CBC #### [facility] [address] [place] [address] Dr. Kristie Martines #0.7 103/ulNormal0.3-0.8The [facility] HospitalComment on above:Performed By: #### CBC #### [facility] [address] [place] [address] Dr. Kristie Chambersocytes/100 WBC (Bld)7.0 %Normal1.7-12.0[facility] Comment on above:Performed By: #### CBC #### [facility] [address] [place] [address] Dr. Kristie Diana #8.2 103/ulCritically high1.4-6.5The [facility] Comment on above:Performed By: #### CBC #### [facility] [address] [place] [address] Dr. Kristie Cumminsutrophils/100 WBC (Bld)77.8 %Critically high43.0-75.0The [facility] HospitalComment on above:Performed By: #### CBC #### [facility] [address] [place] [address] Dr. Kristie Carrascolet mean volume (Bld) [Entitic vol]9.5 fLNormal9.5-13.5The [facility] HospitalComment on above:Performed By: #### CBC #### [facility] [address] [place] [address] Dr. Kristie MarreroPLT265 103/haUmjclo710-265Xmq [facility] HospitalComment on above: Performed By: #### CBC #### [facility] [address] [place] [address] Dr. Kristie MarreroRBC4.56 106/ulNormal4.20-5.40The [facility] HospitalComment on above:Performed By: #### CBC #### [facility] [address] [place] [address] Dr. Kristie MarreroWBC10.5 103/ulNormal4.0-11.0The [facility] HospitalComment on above:Performed By: #### CBC #### [facility] [address] [place] [address] Dr. Kristie MarreroPREG HCG QUALon 73-26-1911JPNFBLIOT, QUALNegativeNormalNEGATIVE The [facility] HospitalComment on above:Performed By: #### PREG #### [facility] [address] [place] [address] Dr. Kristie MarreroCHLAMYDIA/GONOCOCCUS RADHA (SWAB/URINE/PAPon 34-57-1800Sfvmfgwqu trachomatis, NAANegativeNormalNegativeThe [facility] HospitalComment on above: Performed By: #### CT/NGNA #### [facility] [address] [place] [address] Dr. Kristie MarreroNeisseria gonorrhoeae, NAANegativeNormalNegativeThe [facility] HospitalComment on above:Performed By: #### CT/NGNA #### [facility] [address] [place] [address] Dr. Kristie MarreroVAGINITIS/VAGINOSIS DNA PROBEon 68-01-4988Idyskex speciesNegative NormalNegativeThe [facility] HospitalComment on above:Performed By: #### VAGINT #### [facility] [address] [place] [address] [address] Kristie Pena vaginalisPositiveAbnormalNegativePremier Health Miami Valley Hospital SouthComment on above:Performed By: #### VAGINT #### [facility] [address] [address] Kristie MarreroTrichomonas vaginalisNegativeNormalNegativePrem[facility] Health [facility] Comment on above:Performed By: #### VAGINT #### [facility] [address] [place] [address] [address] Kristie MarreroCovid-19 PCR (CVDTB)on 31-96-4109PQBA-CoV-2 (COVID-19) RNA RADHA+probe Ql (Unsp spec)DetectedCritically abnormalNOT DETECTEDThe [facility] HospitalComment on above:Result Comment: This test is not yet approved or cleared by the [place] FDA. When there are no FDA-approved or cleared tests available, and other criteria are met, FDA can make tests available under an emergency access mechanism called an Emergency Use Authorization (EUA). The EUA for this test is supported by the [employer] of Health and Human Service's (HHS's) declaration [...] no longer be used). Performed By: #### CVDTBH #### [facility] [address] Kristie Marrero Vital Signs Date TimeVital SignValuePerforming FfgcighxhFseknbao02-50-1955 10:47-0400Body mass index (BMI) [Ratio]42.91 kg/h5Meysh Ayleen DO Work Phone: NOSaint [facility] Health SystemPixuwnbzdk27-15-1702 10:47-0400Body yfywzs400.29 kgCorey Ayleen DO Work Phone: [facility] JosephPrzucsemzx67-96-5101 10:47-0400Diastolic blood erozwxsl73 mm[Hg]Harry Ayleen DO Work Phone: [facility] JosephOnxqzjcauj12-03-8114 10:47-0400Systolic blood mm[Hg]Harry Ayleen DO Work Phone: [facility] JosephNnttrcbdwg46-43-1342 10:08-0400Body mass index (BMI) [Ratio]42.52 kg/o6Xdvpp Ayleen DO Work Phone: [facility] JosephLelcuetnma85-62-1657 10:08-0400Body eyiygn936.15 kgCorey Ayleen DO Work Phone: [facility] JosephSltpaxxnyw69-01-7830 10:08-0400Diastolic blood egxnljdk24 mm[Hg]Harry Ayleen DO Work Phone: [facility] JosephXtpiqpbuuy06-67-1139 10:08-0400Systolic blood rprjmeyj979 mm[Hg]Harry Ayleen DO Work Phone: [facility] JosephPljkdqosbp37-28-1544 14:52-0500Body mass index (BMI) [Ratio]39.33 kg/m2Amy Beni PA Work Phone: [facility] JosephUoqbovfopx11-77-0791 14:52-0500Body immhju178.91 kgAmy Beni PA Work Phone: [facility] JosephYvonooxmlj83-26-5501 14:52-0500Diastolic blood qncakpok76 mm[Hg]Alyssa Acostaey PA Work Phone: [facility] JosephIcoczwkcon04-91-3386 14:52-0500Systolic blood xadxxhhx581 mm[Hg]Alyssa Acostaey PA Work Phone: [facility] JosephFkfwakzgmr75-31-4777 13:21-0500Body mass index (BMI) [Ratio]38.86 kg/m2Amy [place] PA Work Phone: [facility] JosephXekbyxvzhq68-49-9116 13:21-0500Body xxbywb675.55 kgAmy Beni PA Work Phone: [facility] JosephKyqhjxjubi31-59-6943 13:21-0500Diastolic blood amwbjyck89 mm[Hg]Alyssa Bazan PA Work Phone: [facility] JosephIwjgpmghba15-88-7433 13:21-0500Systolic blood nnxcxjov763 mm[Hg]Alyssa Bazan PA Work Phone: [phone]-[facility] JosephHssezmoggu01-52-9258 11:24-0500Body mass index (BMI) [Ratio]41.04 kg/d3Nfzgt Ayleen DO Work Phone: [phone] [place], [place] [address]Utlhmbnnub66-18-9446 11:24-0500Body udlyji467.84 kgCorey Ayleen DO Work Phone: [phone] [place], [place] [address]Iavvyzgadr11-60-5602 11:24-0500Diastolic blood cxopopmu32 mm[Hg]Harry Ayleen DO Work Phone: [phone])804-[facility] JosephKwvbpofwpu67-14-1884 11:24-0500Systolic blood noflktxm380 mm[Hg]Harry Ayleen DO Work Phone: [phone] [place], [place] [address]Mdimdpoyqj83-92-2111 13:20-0500Body mass index (BMI) [Ratio]41 kg/m2Alyssa Beni PA Work Phone: 1)954-[facility] JosephYunicpajkt16-66-7551 13:20-0500Body .75 kgAlyssa Beni PA Work Phone: [phone])963-[facility] JosephPlfiwobldx34-29-2483 13:20-0500Diastolic blood eazomxgl06 mm[Hg]Alyssa Bazan PA Work Phone: [phone] [place], [place] [address]Axtxbysgjq82-34-2010 13:20-0500Systolic blood kvxjgpoy445 mm[Hg]Alyssa Bazan PA Work Phone: [phone] [place], [place] [address]Mwbbsmepmk42-73-7846 14:14-0500Body mass index (BMI) [Ratio]41.25 kg/a6Fhhls Ayleen DO Work Phone: [phone])509-[facility] JosephCccmpqvyps50-62-2226 14:14-0500Body vyneoz106.48 kgCorey Ayleen DO Work Phone: 1(807)[address] [place], [place] [address]2001-13-2025 14:14-0500Diastolic blood gcohsess16 mm[Hg]Harry Ayleen DO Work Phone: 1(870)[address] [place] [address]-13-2025 14:14-0500Systolic blood mvnsqnyb344 mm[Hg]Harry Ayleen DO Work Phone: 1(265)[address] [place], [place] [address]2001-06-2025 14:53-0500Body mass index (BMI) [Ratio]41.21 kg/l2Bwdbs Ayleen DO Work Phone: 1(222)[address] [place], [place] [address]2001-06-2025 14:53-0500Body .35 kgCorey Ayleen DO Work Phone: 1(716)[address] [place], [place] [address]2001-06-2025 14:53-0500Diastolic blood vzqrqujr10 mm[Hg]Harry Ayleen DO Work Phone: 1(254)[facility] [place], [place] [address]Ceyevekpfu16-14-3787 14:53-0500Systolic blood cxhpzguw527 mm[Hg]Harry Ayleen DO Work Phone: 1(861)[address] [place], [place] [address]2012-17-2024 14:03-0500Body mass index (BMI) [Ratio]40.43 kg/m2Amy Beni PA Work Phone: 1(910)[facility] [place], [place] [address]Uukdkgbuaf79-94-9472 14:03-0500Body vtbqew165.08 kgAmy [place] PA Work Phone: 1(968)[facility] [place], [place] [address]Hsclgrwani57-51-2203 14:03-0500Diastolic blood getbaipk91 mm[Hg]Alyssa Beni PA Work Phone: 1(082)[address] [place] [address]-17-2024 14:03-0500Systolic blood auxncqce442 mm[Hg]Alyssa Beni PA Work Phone: 1(338)[address] [place] [address]-03-2024 10:46-0500Body mass index (BMI) [Ratio]40.53 kg/c4Bvnvw Ayleen DO Work Phone: 1(419)[facility] [place] [address]-03-2024 10:46-0500Body dkwevk470.39 kgCorey Ayleen DO Work Phone: 1(121)[address] [place] [address]-03-2024 10:46-0500Diastolic blood mmlttaqm35 mm[Hg]Harry Ayleen DO Work Phone: 1(455)[facility] [place], [place] [address]Kjapmggptr20-71-6778 10:46-0500Systolic blood prubvkur545 mm[Hg]Harry Ayleen DO Work Phone: 1(378)[address] [place], [place] [address]2011-19-2024 10:28-0500Body mass index (BMI) [Ratio]41.16 kg/m2Alyssa Beni ISSA Work Phone: 1(798)[address] [place], [place] [address]-19-2024 10:28-0500Body plscaz213.2 kgAlyssa Beni ISSA Work Phone: 1(582)[address] [place] [address]-19-2024 10:28-0500Diastolic blood oiqclizn36 mm[Hg]Alyssa ISSA Work Phone: 1(344)[address] [place], [place] [address]-19-2024 10:28-0500Systolic blood mm[Hg]Alyssa ISSA Work Phone: 1(046)[address] [place], [place] [address]2010-21-2024 09:39-0400Body mass index (BMI) [Ratio]40.41 kg/s6Jcruc Ayleen DO Work Phone: 1(092)[address] [place], [place] [address]2010-21-2024 09:39-0400Body vjybdb309.03 kgCorey Ayleen DO Work Phone: 1(570)[address] [place], [place] [address]2010-21-2024 09:39-0400Diastolic blood dxeuqvdn64 mm[Hg]Harry Ayleen DO Work Phone: 1(047)[address] [place], [place] [address]-21-2024 09:39-0400Systolic blood aycrwdks830 mm[Hg]Harry Ayleen DO Work Phone: 1(371)[address] [place], [place] [address]-25-2024 11:36-0400Body jdyyjp362.2 cmDennis Furlong DO Work Phone: [facility]09-25-2024 11:36-0400Body mass index (BMI) [Ratio]39.28 kg/n7Xbezus Furlong DO Work Phone: [facility] Rpnlul80-28-1373 11:36-0400Body .1 [degF]Yimi Gallo DO Work Phone: [facility] Jxujvy57-02-8159 11:36-0400Body jarwna688.76 kgYimi Nicholsng DO Work Phone: [facility] Xxanaf28-78-6382 11:36-0400Diastolic blood spbitlyf44 mm[Hg]Yimi Nicholsng DO Work Phone: [facility] Kwxdxd69-56-2975 11:36-0400Heart rate 85 /minDennis Yung DO Work Phone: [facility]09-25-2024 11:36-4900AxV1% (BldA) [Mass fraction]97 %Yimi Gallo DO Work Phone: [facility] Rjoaer01-55-6222 11:36-0400Systolic blood endlzity118 mm[Hg]Yimi Gallo DO Work Phone: [facility] Vhvbdp61-52-9675 15:06-0400Body mass index (BMI) [Ratio]39.39 kg/m2Alyssa ISSA Work Phone: [facility] JosephRpzchuyryv86-08-6512 15:06-0400Body shkqdu651.08 kgAlyssa ISSA Work Phone: [facility] JosephLamiqctxmh14-97-9804 15:06-0400Diastolic blood gczyfnpy49 mm[Hg]Alyssa ISSA Work Phone: [facility] JosephVatyyiqwmf77-40-1083 15:06-0400Systolic blood iqgcpgkc871 mm[Hg]Alyssa ISSA Work Phone: [facility] JosephMmpgrhkonl49-95-1734 11:14-0400Body mass index (BMI) [Ratio]39 kg/m0JigwfHarry Hannao DO Work Phone: [facility] JosephMuwyjnqphs52-45-9794 11:14-0400Body wahlgq169.95 kgCorey Ayleen DO Work Phone: [facility] JosephMxpcjictmb40-34-1014 11:14-0400Diastolic blood mm[Hg]Harry Abbasi DO Work Phone: [facility] JosephMbfltkpvoc39-53-8846 11:14-0400Systolic blood wmtmiwll412 mm[Hg]Harry Abbasi DO Work Phone: [facility] JosephGlvvkssrwg91-55-8636 09:25-0400Body .2 cmMireya Colón APRN-SCHOOL TRAFFIC GUARD Work Phone: [facility] Ukxlhh83-16-9128 09:25-0400Body mass index (BMI) [Ratio]38.17 kg/x0PrrbsfMireya Colón APRN-SCHOOL TRAFFIC GUARD Work Phone: [facility] Muewzl03-32-4467 09:25-0400Body hfknxjnhrdu51.29 [degF]Mireya Colón SWEEP PRESS OPERATOR-SCHOOL TRAFFIC GUARD Work Phone: [facility] Kepppn33-53-5565 09:25-0400Body eyczum656.54 kgBrvaleria Colón SWEEP PRESS OPERATOR-SCHOOL TRAFFIC GUARD Work Phone: [facility] Azaysv12-22-9857 09:25-0400Diastolic blood yncdpomp31 mm[Hg]Mireya Colón SWEEP PRESS OPERATOR-SCHOOL TRAFFIC GUARD Work Phone: [facility] Ubsuzs94-01-3052 09:25-0400Heart rate 74 /minBrvaleria Colón SWEEP PRESS OPERATOR-SCHOOL TRAFFIC GUARD Work Phone: [facility]05-10-2024 09:25-0400 Respiratory rate18 /minBrvaleria Colón SWEEP PRESS OPERATOR-SCHOOL TRAFFIC GUARD Work Phone: [facility] Isekij95-46-2911 09:25-5413NcN8% (BldA) [Mass fraction]97 %Mireya Colón SWEEP PRESS OPERATOR-SCHOOL TRAFFIC GUARD Work Phone: [facility] Yavxbp92-80-9941 09:25-0400Systolic blood qjqvjush734 mm[Hg]Mireya Colón SWEEP PRESS OPERATOR-SCHOOL TRAFFIC GUARD Work Phone: [facility] Jipuwl24-53-2816 15:22-0400Body aaobgy093.2 cmSummer Mares SWEEP PRESS OPERATOR-PLANNING DIRECTOR Work Phone: [facility] CenterY[facility] Ofotrl57-22-9639 15:22-0400Body mass index (BMI) [Ratio]38.28 kg/m2Summer Mares SWEEP PRESS OPERATOR-PLANNING DIRECTOR Work Phone: [facility] Center[facility] Sezrti97-94-4087 15:22-0400Body hswmpcdasms91.29 [degF]Summer Mares SWEEP PRESS OPERATOR-PLANNING DIRECTOR Work Phone: [facility] Txglhq31-59-5384 15:22-0400Body uemgso194.86 kgSummer Mares SWEEP PRESS OPERATOR-PLANNING DIRECTOR Work Phone: [facility] Jhcxpo36-48-3425 15:22-0400Diastolic blood jtolvmta78 mm[Hg]Summer Mares SWEEP PRESS OPERATOR-PLANNING DIRECTOR Work Phone: [facility] Vqcloz06-07-5944 15:22-0400Heart rate 82 /minSummer Mares SWEEP PRESS OPERATOR-PLANNING DIRECTOR Work Phone: [facility] Qdlhbd74-96-6279 15:22-0400 Respiratory rate18 /minSummer Mares SWEEP PRESS OPERATOR-PLANNING DIRECTOR Work Phone: [facility] Center[facility] Qdrbtq94-27-1980 15:22-0449NcU3% (BldA) [Mass fraction]97 %Summer Mares SWEEP PRESS OPERATOR-PLANNING DIRECTOR Work Phone: [facility] Jqmdgt58-14-2848 15:22-0400Systolic blood ylmfebbj943 mm[Hg]Summer Mares SWEEP PRESS OPERATOR-PLANNING DIRECTOR Work Phone: [facility] Center[facility] Encounters Encounter DateEncounter TypeCare ProviderFacilityStart: 08-02-2025 End: 37-05-4688hbjdyynkldYkjom Ayleen-[facility] [place] HospStart: 08-02-2025 End: 61-10-3064Wsrymvnd ReferredCorey Ayleen-LAB Path Spec Aj HospStart: 07-04-2025 End: 31-16-5519Otylskclb encounterBrittney Rome [facility]Pro[facility] Medicine - Family MedicineComment on above:AppointmentStart: 06-28-2025 End: 80-86-4592Nfhydfjte department patient visitMIREYA Laura KATARZYNAUniversity [facility]als [facility] HospitalStart: 06-27-2025 End: 06-55-7089Noiyzstvb Result EncounterCorey Ayleen DO Work Phone: noms External Department UnsolicitedStart: 06-27-2025 End: 47-13-2646Ntnpocxj Result EncounterCorey Ayleen DO Work Phone: noms External Department UnsolicitedStart: 06-27-2025 End: 13-75-1193Wtqcsvex Result EncounterCorey Ayleen DO Work Phone: noms External Department UnsolicitedStart: 06-27-2025 End: 35-88-7344Ltzltnq encounter procedureCorey Ayleen DO Work Phone: [facility] Work Phone: Start: 06-27-2025 End: 93-22-1002Nbzdzezr preventive med est patient 18-39 yrsCorey Ayleen DO Work Phone: [facility] [place] OBGYNComment on above:Pre-op examination; Request for sterilization; Well woman exam with routine gynecological exam; Exposure to STD; Vaginal discharge; Upper back painStart: 06-27-2025 End: 00-06-0494Ujhkvhitwmasz examination doneCorey Ayleen DO Work Phone: noms HealthcareStart: 06-27-2025 End: 68-29-7485kjveogvhmjOCVEW FAZIONot AvailableStart: 05-27-2025 End: 34-33-1516Uowljl flowsheetCorey Ayleen DO Work Phone: noms Aj OBGYNStart: 05-27-2025 End: 67-94-0642Dqnvus flowsheetCorey Ayleen DO Work Phone: [facility] [place] OBGYNStart: 05-27-2025 End: 64-48-2607Mqtazz outpatient visit 15 minutesCorey Ayleen DO Work Phone: [facility] Aj OBGYNComment on above:Sterilization consultStart: 05-27-2025 End: 49-02-9644jjgyroropqMVILE FAZIONot AvailableStart: 04-04-2025 End: 59-02-7377Kbcfsgbpk department patient visitC[facility] HospitalStart: 02-08-2025 End: 05-16-5152Hvkxspigt department patient visitSelect Medical [facility], Avontart: 12-17-2024 End: 25-64-7496gucrmctitqAGX RAMEYNot AvailableStart: 12-12-2024 End: 30-43-7986Ytmuah follow up visit related to original pxAlyssa ISSA Work Phone: [facility] BCP OBComment on above:Postoperative follow-up Start: 12-12-2024 End: 10-51-1099aanhockhbsZUE RAMEYNot AvailableStart: 12-12-2024 End: 42-88-3361Sixffs flowsSoin Bazan PA Work Phone: [facility] BCP OBStart: 12-12-2024 End: 98-22-6941Tnkwku flowsheetAlyssa Bazan PA Work Phone: [facility] BCP OBStart: 11-15-2024 End: 84-62-7904Hyjgxe flowsheetAlyssa Bazan PA Work Phone: [facility] BCP OBStart: 11-15-2024 End: 13-86-5588Rumftr flowsSoni Bazan PA Work Phone: [facility] BCP OBStart: 11-15-2024 End: 86-19-0083Hyxasy follow up visit related to original pxAlyssa ISSA Work Phone: [facility] BCP OBComment on above:Postoperative follow-up (Primary Dx)Start: 11-15-2024 End: 28-86-1487nctfbmmvzeTSU RAMYOHANNot AvailableStart: 11-10-2024 End: 97-29-8042Wjgzcnkkj Result EncounterCorey Ayleen DO Work Phone: [facility] External Department UnsolicitedStart: 11-10-2024 End: 69-49-6389Lakswhccr Result EncounterCorey Ayleen DO Work Phone: [facility] External Department UnsolicitedStart: 11-09-2024 End: 20-80-8724Mmuphzaap Result EncounterCorey Ayleen DO Work Phone: [facility] External Department UnsolicitedStart: 11-09-2024 End: 12-46-6169Uarzmqqvx Result EncounterCorey Ayleen DO Work Phone: [facility] External Department UnsolicitedStart: 11-08-2024 End: 53-02-9026Yhijls flowsheetCorey Ayleen DO Work Phone: [facility] BCP OBStart: 11-08-2024 End: 59-83-6786Iohyfd flowsheetCorey Ayleen DO Work Phone: [facility] BCP OBStart: 11-08-2024 End: 78-85-4112kbbvrugmwhEDJFH FAZIONot AvailableStart: 11-08-2024 End: 86-29-6627Fwlqyrqd flow sheetCorey Ayleen DO Work Phone: [facility] BCP OBComment on above:Third trimester ; 38 weeks gestation of pregnancyStart: 10-31-2024 End: 70-46-8200Dstwbt flowsSoni ISSA Work Phone: [facility] BCP OBStart: 10-31-2024 End: 06-60-1672Yldiax flowsSoni ISSA Work Phone: [facility] BCP OBStart: 10-31-2024 End: 77-87-7792Gmryurfh flow sheetAmy Beni ISSA Work Phone: [facility] BCP OBComment on above:Third trimester ; 37 weeks gestation of pregnancyStart: 10-31-2024 End: 17-91-0225clfxbiurstNGC RAMEYNot AvailableStart: 10-22-2024 End: 36-91-9366Pehgfc flowsheetCorey Ayleen DO Work Phone: [facility] BCP OBStart: 10-22-2024 End: 18-68-9533Hlomxr flowsheetCorey Ayleen DO Work Phone: [facility] BCP OBStart: 10-22-2024 End: 51-62-9984Xesmuuglj Result EncounterCorey Ayleen DO Work Phone: [facility] External Department UnsolicitedStart: 10-22-2024 End: 50-34-5719Fjziraok flow sheetCorey Ayleen DO Work Phone: [facility] BCP OBComment on above:36 weeks gestation of ; Third trimester pregnancyStart: 10-22-2024 End: 01-69-3268xynphrtjglVUYXR FAZIONot AvailableStart: 10-15-2024 End: 72-23-3763Jxdlvprs flow sheetCorey Ayleen DO Work Phone: [facility] BCP OBComment on above:Third trimester ; 35 weeks gestation of pregnancyStart: 10-15-2024 End: 81-71-3642qdkqpkgfikNSNUE FAZIONot AvailableStart: 10-15-2024 End: 73-52-0826Sjiaru flowsheetCorey Ayleen DO Work Phone: [facility] BCP OBStart: 10-15-2024 End: 01-17-4211Ggntvq flowsheetCorey Ayleen DO Work Phone: [facility] BCP OBStart: 09-29-2024 End: 52-38-7301Rrvqdchsk Result EncounterCorey Ayleen DO Work Phone: [facility] External Department UnsolicitedStart: 09-29-2024 End: 81-49-7883Wwrpwthag Result EncounterCorey Ayleen DO Work Phone: [facility] External Department UnsolicitedStart: 09-25-2024 End: 94-57-5878Fxoooi flowsSoni ISSA Work Phone: [facility] BCP OBStart: 09-25-2024 End: 08-04-8722Stxieu flowsSoni ISSA Work Phone: [facility] BCP OBStart: 09-25-2024 End: 46-43-1482Pamelq outpatient visit 15 minutesAmy Beni ISSA Work Phone: [facility] BCP OBComment on above:32 weeks gestation of ; Third trimester ; Anxiety with depressionStart: 09-25-2024 End: 15-09-5091nzhwduxtosTPU Latia AvailableStart: 09-11-2024 End: 32-30-4100Gjbstf flowsheetCorey Ayleen DO Work Phone: [facility] BCP OBStart: 09-11-2024 End: 21-92-4024Rknbux flowsheetCorey Ayleen DO Work Phone: [facility] BCP OBStart: 09-11-2024 End: 05-75-6691Ycmpwuvax Result EncounterAlyssa ISSA Work Phone: [facility] External Department UnsolicitedStart: 09-11-2024 End: 56-60-1337Jahzockb flow sheetCorey Ayleen DO Work Phone: [facility] BCP OBComment on above:Third trimester ; 30 weeks gestation of pregnancyStart: 09-11-2024 End: 30-60-4289ootgalawdfAGKNU FAZIONot AvailableStart: 08-28-2024 End: 35-50-9679Velkvg flowsheetAlyssa ISSA Work Phone: [facility] BCP OBStart: 08-28-2024 End: 41-66-9340Qkmfzm flowsSoni ISSA Work Phone: [facility] BCP OBStart: 08-28-2024 End: 68-04-2775Gcjaaoih flow sheetAlyssa ISSA Work Phone: [facility] BCP OBComment on above:Third trimester ; 28 weeks gestation of ; size inconsistent with datesStart: 08-28-2024 End: 55-43-9756krgfzdgcbnAYI RAMEYNot AvailableStart: 07-30-2024 End: 06-83-4384Asjkyo flowsheetCorey Ayleen DO Work Phone: noms BCP OBStart: 07-30-2024 End: 34-26-5225Sqmraq flowsheetCorey Ayleen DO Work Phone: noms BCP OBStart: 07-30-2024 End: 85-17-2921Yyxjdbtsb Result EncounterCorey Ayleen DO Work Phone: noms External Department UnsolicitedStart: 07-30-2024 End: 57-37-3336Ztmpgv outpatient visit 15 minutesCorey Ayleen DO Work Phone: noms BCP OBComment on above:24 weeks gestation of ; Diabetes mellitus screeningStart: 07-30-2024 End: 72-29-9544wyixcpqmkoMHNST FAZIONot AvailableStart: 07-04-2024 End: 76-63-2864Vzrjzp outpatient visit 15 minutesDenjose [facility] DO Work Phone: [facility] - Family MedicineComment on above:Nasal congestion (Primary Dx); Viral URIStart: 07-04-2024 End: 42-48-3305qngcovajenDBMALRKit [facility] Ambulatory PPGStart: 07-02-2024 End: 42-30-8422Cwnvpbhcf Result EncounterCorey Ayleen DO Work Phone: noms External Department UnsolicitedStart: 07-02-2024 End: 21-36-8334Hafoaxlng Result EncounterCorey Ayleen DO Work Phone: noms External Department UnsolicitedStart: 06-28-2024 End: 12-89-1571Jvhpkj outpatient visit 15 minutesAlyssa ISSA Work Phone: noms [facility] OBComment on above:Second trimester Start: 06-28-2024 End: 79-88-6171Cflnvt flowsSoni ISSA Work Phone: noms BCP OBStart: 06-28-2024 End: 35-66-7139Rxzbik flowsheetAmy Beni PA Work Phone: NOQL [facility] OBStart: 05-29-2024 End: 74-43-1123Fjtshp flowsheetCorey Ayleen DO Work Phone: noms [facility] OBStart: 05-29-2024 End: 60-34-2251Bljblo flowsheetCorey Ayleen DO Work Phone: NOFD [facility] OBStart: 05-29-2024 End: 57-61-6611Wjiynwjiq Result EncounterCorey Ayleen DO Work Phone: noms External Department UnsolicitedStart: 05-29-2024 End: 63-89-7612Qocmuxlc Result EncounterCorey Ayleen DO Work Phone: noms External Department UnsolicitedStart: 05-29-2024 End: 81-18-3069Fzxdavb encounter procedureCorey Ayleen DO Work Phone: NOTN HealthcareStart: 05-29-2024 End: 33-09-3363Clvnokus preventive med est patient 18-39 yrsCorey Ayleen DO Work Phone: noms [facility] OBComment on above:15 weeks gestation of ; Screening, , for anatomic survey; Well woman exam with routine gynecological exam; Exposure to STD; Vaginal dischargeStart: 05-11-2024 End: 92-61-8307Zlcoviors Result EncounterCorey Ayleen DO Work Phone: noms External Department UnsolicitedStart: 05-11-2024 End: 52-69-6383Sfiaheaqa Result EncounterCorey Ayleen DO Work Phone: noms External Department UnsolicitedStart: 04-18-2024 End: 67-54-8507Vnjjyjcrb Result EncounterCorey Ayleen DO Work Phone: noms External Department UnsolicitedStart: 04-18-2024 End: 31-72-1138Ysvhfzuhk Result EncounterCorey Ayleen DO Work Phone: noms External Department UnsolicitedStart: 02-20-2024 End: 96-67-5466Whhtjzqvb Result EncounterCorey Ayleen DO Work Phone: noms External Department UnsolicitedStart: 02-20-2024 End: 31-64-3753Dmnltwuxo Result EncounterCorey Ayleen DO Work Phone: noms External Department UnsolicitedStart: 02-17-2024 End: 69-92-0307bqootyysfvIWZWXQProtestant Deaconess Hospitaltart: 02-17-2024 End: 10-33-2491Vclicu outpatient visit 15 minutesMireya Katarzyna SWEEP PRESS OPERATOR-SCHOOL TRAFFIC GUARD Work Phone: [facility] Medicine - Family MedicineComment on above:Miscarriage (Primary Dx)Start: 02-17-2024 End: 76-99-2919awildtamfrUHULNQDavid [facility] Ambulatory PPGStart: 12-20-2023 End: 09-91-4099Uwcaek outpatient visit 15 minutesSummer Gutiérrez Suzan SWEEP PRESS OPERATOR-PLANNING DIRECTOR Work Phone: [facility] Medicine - Family MedicineComment on above:PTSD (post-traumatic stress disorder) (Primary Dx); General counseling and advice for contraceptive management; Class 2 obesity due to excess calories without serious comorbidity with body mass index (BMI) of 37.0 to 37.9 in adultStart: 12-20-2023 End: 86-06-1807gniymyzxqtLOANKittson Memorial Hospital Ambulatory PPGStart: 73-73-5025Ycqqeuedq Result EncounterCorey Ayleen DO Work Phone: noms External Department UnsolicitedStart: 11-21-2023 Clinisync Result EncounterCorey Ayleen DO Work Phone: noms External Department UnsolicitedStart: 01-19-2023 End: 00-67-3488otdrbqdalzNW DOCTOR MISCFacility:G6Giwbx: 11-16-2022 End: 31-29-1952qdkidxgraiRS BEATA THOMSON .Facility:M6Hyxlk: 05-07-2022 End: 27-21-7399qmiukqqyqmQD SUKHDEEP EDGAR .Facility:H1 Procedures DateProcedureProcedure DetailPerforming ClinicianStart: 43-32-3228CLOTDZOFE VAGINITIS (HTRX)Harry Ayleen DO Work Phone: Start: 95-61-7746BGI,APTIMA HPV,AGE GDLNCorey Ayleen DO Work Phone: Start: 72-28-4230NOW CBC WITH AUTO DIFFCorey Ayleen DO Work Phone: Start: 83-48-0549FOS CBC WITH AUTO DIFFCorey Ayleen DO Work Phone: Start: 00-71-3466Vqvcl dip stick/tablet rgnt non-auto w/o micrscpCorey Ayleen DO Work Phone: Start: 26-10-3696Yookt dip stick/tablet rgnt non-auto w/o micrscpAmy Beni ISSA Work Phone: Start: 06-97-8183Lnzvx dip stick/tablet rgnt non-auto w/o micrscpCorey Ayleen DO Work Phone: Start: 74-49-6080RFL MISCELLANEOUS TESTCorey Ayleen DO Work Phone: Start: 66-04-1108Gfpnc dip stick/tablet rgnt non-auto w/o micrscpCorey Ayleen DO Work Phone: Start: 29-94-6163IJ OB BPP W NON-STRESSCorey Ayleen DO Work Phone: Start: 32-33-1040Ddpdh dip stick/tablet rgnt non-auto w/o micrscpCorey Ayleen DO Work Phone: Start: 32-57-0279ZY OB GROWTHAmy Beni ISSA Work Phone: Start: 48-09-6709Ciqpt dip stick/tablet rgnt non-auto w/o micrscpCorey Ayleen DO Work Phone: Start: 21-89-6575Vjqds dip stick/tablet rgnt non-auto w/o micrscpAmy Beni ISSA Work Phone: Start: 77-90-1858QJO CBC WITH AUTO DIFFCorey Ayleen DO Work Phone: Start: 30-15-5545AISVTXT 1 HOURCorey Ayleen DO Work Phone: Start: 20-49-5498ZP OB INCOMPLETE ANATOMYCorey Ayleen DO Work Phone: Start: 46-57-2519Iprom dip stick/tablet rgnt non-auto w/o micrscpCorey Ayleen DO Work Phone: Start: 87-67-9847FDOO INFLUENZA A/INFLUENZA B/SARS-COV-2 VERITORDenjose Kevin Furng DO Work Phone: Start: 17-93-1410Rjsvp depression screening assessment Yimi Oharaunitypoint [facility] DO Work Phone: Start: 06-54-7160TA OB ANATOMYCorey Ayleen DO Work Phone: Start: 34-80-5358JN OB TRANSVAGINALCorey Ayleen DO Work Phone: Start: 41-75-2773Czwfl dip stick/tablet rgnt non-auto w/o micrscpAcecy ISSA Work Phone: Start: 09-79-1187VDY, SERUM, OPEN SPINA BIFIDACorey Ayleen DO Work Phone: Start: 32-50-2402Wwabj dip stick/tablet rgnt non-auto w/o micrscpCorey Ayleen DO Work Phone: Start: 16-72-1185Gjiaveahcox observation [Identifier] in Cervix by Cyto Kelly Rome CMAStart: 55-20-7136Tkbi cerv/vag auto thin layer prep mnl screenCorey Ayleen DO Work Phone: [phone]: 94-01-8457VOIXRUCQSV/DISCHARGE PLUS VAGINITIS (HTRX)Harry Ayleen DO Work Phone: [phone]: 63-40-1371Ybiasfjm screenCorey Ayleen DO Work Phone: [phone]: 99-19-1664UA OB TRANSVAGINALCorey Ayleen DO Work Phone: [phone]: 23-80-9007BKU CBC WITH AUTO DIFFCorey Ayleen DO Work Phone: [phone]: 69-46-1907AXJ RUBELLA IGG ABCorey Ayleen DO Work Phone: Start: 99-55-2723YCL TYPE AND SCREENCorey Ayleen DO Work Phone: Start: 12-28-9601MJSEP SCREENCorey Ayleen DO Work Phone: Start: 30-63-5450NHP ANTIBODY RFX TO QUANT PCRCorey Ayleen DO Work Phone: Start: 98-12-8136XKV AB/P24 AG WITH REFLEXCorey Ayleen DO Work Phone: Start: 71-99-6082DYW HEMOGLOBIN W1WErpqp Ayleen DO Work Phone: Start: 27-52-4616YGJIJ PLASMA REAGIN, QUANTCorey Ayleen DO Work Phone: Start: 48-00-6838TXJ BOX TEST SENT OUTCorey Ayleen DO Work Phone: [phone]: 98-60-7568BT OB TRANSVAGINALCorey Ayleen DO Work Phone: Start: 77-61-4059AH OB TRANSVAGINALCorey Ayleen DO Work Phone: Start: 32-45-5104NJU PREG QUANT HCGCorey Ayleen DO Work Phone: Start: 15-80-8256Llvdv depression screening assessment Mireya Colón [employer]ESS OPERATOR-[employer] TRAFFIC GUARD Work Phone: Start: 82-63-7735Pjpyc depression screening assessment Summer Mares SWEEP PRESS OPERATOR-PLANNING DIRECTOR Work Phone: Start: 02-47-5551ZCA PREG QUANT HCGCorey Ayleen DO Work Phone: Start: 30-42-1481Inbyvuenlck observation [Identifier] in Cervix by Cyto stainSummer Mares SWEEP PRESS OPERATOR-PLANNING DIRECTOR Work Phone: Plan of Treatment DateCare ActivityDetailAuthorStart: 63-86-5190OKiM,Tdap and Td Vaccines (8 - Td or Tdap)DTaP,Tdap and Td Vaccines (8 - Td or Tdap)[facility] SystemStart: 24-08-4470PMcV,Tdap and Td Vaccines (7 - Td or Tdap)DTaP,Tdap and Td Vaccines (7 - Td or Tdap)ProMLakeview Hospital SystemStart: 76-94-4739Rkzgblvsz for malignant neoplasm of cervixPap SmearBlanchard Valley Health System [facility]uff[facility] SystemStart: 73-38-2284Xxbko BMI ScreeningAdult BMI ScreeningAtrium Health SouthParktart: 20-27-4094Pvlqowo ScreeningTobacco ScreeningBlanchard Valley Health System [facility] SystemStart: 57-97-7669Lkizuthho for malignant neoplasm of cervixPap SmearBlanchard Valley Health System [facility] SystemStart: 08-12-2025 End: 60-43-0503Ijsxfpf encounter nuarszjxk67/03/2025 8:30 AM EST Office Visit ADRIAN MORGAN [address] [phone] Alyssa Bazan PA [address] [place] [address] ADRIAN HUANGtart: 14-46-7194Xmrlc BMI ScreeningAdult BMI ScreeningProMary [facility] SystemStart: 07-04-2025 Depression ScreeningDepression ScreeningBlanchard Valley Health System [facility] SystemStart: 09-25-2025 Tobacco ScreeningTobacco ScreeningProNorwalk Memorial Hospitalca Health SystemStart: 06-27-2025 End: 28-06-5444Xamdvic encounter oyvnmdzuy54/18/2025 10:40 AM EDT Procedure Visit NOMEmma MORGAN [address] [place], [id number] Harry Abbasi, DO [address] [place] [address] NOMEmma [place] OBGYNStart: 16-09-4459ESBRX- 19 Vaccine ( season)COVID-19 Vaccine ( season)[facility] HealthcareStart: 83-44-4605Jjkmylhuk vaccinationInfluenza Vaccine (#1)[facility] HealthcareStart: 05-27-2025 End: 72-81-7634Theesfi encounter zpwkownwq61/18/2025 10:10 AM EDT Office Visit NOMEmma MORGAN [address] [place] [phone] Harry Abbasi, DO [address] [place] [address] ArrivedNOMS [place] OBGYNComment on above:ArrivedStart: 22-04-2487Tpwcl BMI ScreeningAdult BMI ScreeningProNorwalk Memorial Hospitalca Health SystemStart: 69-41-8906Vqekyqvxhl ScreeningDepression ScreeningProMedica Health SystemStart: 22-73-6039Salpfpd ScreeningTobacco ScreeningProNorwalk Memorial Hospitalca Health SystemStart: 12-20-2024 End: 40-62-5692uldyjpydih53/13/2025 9:40 AM EDT Visit [facility] [address] [facility] [place] [phone] Alyssa Bazan PA [address] [place] [address] NOMS BCP OBStart: 64-49-6764Swwbm BMI ScreeningAdult BMI ScreeningProNorwalk Memorial Hospitalca Health SystemStart: 69-04-4982Oukrxweccs ScreeningDepression ScreeningProMary [facility] SystemStart: 54-71-0714Uyipthp ScreeningTobacco ScreeningProMary [facility] Hospital SystemStart: 12-12-2024 End: 26-48-5203Uabvzyk encounter rnjrydzzl52/05/2025 2:20 PM EST Office Visit [facility] [address] [phone] Alyssa Bazan, PA [address] [place] [address] ArrivedNOMS BCP OBComment on above:ArrivedStart: 11-15-2024 End: 37-94-2614Abqmhfd encounter vtfcjogph23/06/2025 3:30 PM EST Office Visit [facility] OB [address] [place] [phone] Alyssa Bazan, PA [address] [place] [address] NOMS BCP OBStart: 11-15-2024 End: 84-24-6204Omeucwk encounter zhspjvuui73/06/2025 1:50 PM EST Office Visit [facility] [address] [place] [address] Alyssa Bazan, PA [address] [place] [address] ArrivedNOMS BCP OBComment on above:ArrivedStart: 11-08-2024 End: 05-56-8449Hjwrxdc encounter iljfzbthm88/30/2025 11:10 AM EST Routine [facility] [address] [place] [phone] Harry Abbasi DO [address] [place] [address] NOM[facility] BCP OBStart: 10-31-2024 End: 55-22-9944Ttcouur encounter procedureNOMS BCP OBComment on above:Arrived Start: 10-22-2024 End: 28-27-5300GZDWDDM, GROUP B STREP WITH SUSCEPTIBLITYCULTURE, GROUP B STREP WITH SUSCEPTIBLITY Lab Routine Third trimester Expected: 10/22/2024, Expires: 10/22/2025[facility] Work Phone: comment on above:Expected: 10/22/2024, Expires: 10/22/2025Start: 10-22-2024 End: 14-27-9933Pgipvvu encounter procedureNOMS BCP OBComment on above:Arrived Start: 10-15-2024 End: 34-06-0792Xczyzvz encounter procedureNOMS BCP OBComment on above:Arrived Start: 09-25-2024 End: 21-16-2705Vkugxgp encounter procedureNOMS BCP OBComment on above:Arrived Start: 04-61-6710Rnwlp BMI Follow Up PlanAdult BMI Follow Up PlanAtrium Health SouthParktart: 09-11-2024 End: 87-52-2203Ezyjpbz encounter procedureNOMS BCP OBComment on above:Arrived Start: 09-11-2024 End: 96-83-7787Wjmsrfniwxhc / ancillary services aflabwlknh33/03/2024 10:00 AM EST Ancillary Procedure [facility] [address] [facility] [place] [phone] [facility] BCP OBStart: 08-28-2024 End: 67-77-8090ZO for pregnancyUS OB SCAN FOR GROWTH Imaging Routine size inconsistent with dates Expected: 08/28/2024(Approximate), Expires: 08/28/2025[facility] Work Phone: comment on above:Expected: 08/28/2024 (Approximate), Expires: 08/28/2025Start: 08-28-2024 End: 57-21-2394Odceztr encounter procedureNOMS BCP OBComment on above:Arrived Start: 07-30-2024 End: 66-87-3453FQN panel - Blood by Automated countCBC Lab Routine Diabetes mellitus screening Expected: 07/30/2024 (Approximate), Expires: 07/30/2025[facility] Work Phone: comment on above:Expected: 07/30/2024 (Approximate), Expires: 07/30/2025Start: 07-30-2024 End: 97-72-2155Xhduvqcvzpx of glucose 1 hour after glucose challenge for glucose tolerance testGlucose tolerance, 1 hour Lab Routine Diabetes mellitus screening Expected: 07/30/2024 (Approximate), Expires: 07/30/2025N[facility] HealthcareComment on above:Expected: 07/30/2024 (Approximate), Expires: 07/30/2025Start: 07-30-2024 End: 62-62-7171Wnmcjma encounter /21/2024 9:10 AM EDT Routine [facility] [address] [facility] [phone] Harry Abbasi DO [address] [place] [address] ArrivedKAISER [facility] OBComment on above: ArrivedStart: 07-02-2024 End: 23-35-2741Eqrxzmi encounter procedureNODE BCP OBStart: 07-02-2024 End: 77-47-8118Xxzrangjznws / ancillary services wtevfodnev68/23/2024 8:30 AM EDT Ancillary Procedure [facility] [address] [facility] [phone] [facility] BCP OBStart: 06-28-2024 End: 15-74-2618Emijlcd encounter rxshhqrag58/19/2024 3:00 PM EDT Routine [facility] [address] [facility] [phone] Alyssa Bazan PA [address] [place] [address] ArrivedKAISER [facility] OBComment on above: ArrivedStart: 12-80-5112Yneszljuk vaccinationInfluenza Vaccine (#1)[facility] HealthcareStart: 05-29-2024 End: 08-41-7119Hvnid fetoprotein, maternalAlpha fetoprotein, maternal Lab Routine 15 weeks gestation of Expected: 05/29/2024 (Approximate), Expires: 07/29/2024N[facility] HealthcareComment on above:Expected: 05/29/2024 (Approximate), Expires: 07/29/2024Start: 05-29-2024 End: 22-48-7746KZ for pregnancyUS OB ANATOMY SINGLE W US OB CERVICAL LENGTH Imaging Routine Screening, , for anatomic survey Expected: 05/29/2024 (Approximate), Expires: 05/29/2025N[facility] HealthcareComment on above: Expected: 05/29/2024 (Approximate), Expires: 05/29/2025Start: 05-29-2024 End: 88-32-2416Muamwux encounter eogdkdlpb98/20/2024 10:50 AM EDT Routine [facility] [address] [place] [phone] Harry Abbasi, DO [address] [place], [place] [phone] ArrivedNOVA [facility] OBComment on above: ArrivedStart: 42-37-4824Mxmzqdnfi vaccinationInfluenza Vaccine (#1)[facility] HealthcareStart: 54-31-3482Juotojmrv B Vaccines (1 of 3 - 19+ 3-dose series) Hepatitis B Vaccines (1 of 3 - 19+ 3-dose series)[facility] HealthcareStart: 13-96-2190Irbcifktfkfct B Vaccine (1 of 2 - Standard)Meningococcal B Vaccine (1 of 2 - Standard)[facility] HealthcareStart: 52-75-4528KKT Vaccines (1 - 3-dose series) HPV Vaccines (1 - 3-dose series)[facility] HealthcareStart: 07-51-5017Bpuqhid of varicella vaccinationVaricella Vaccines (1 of 2 - 13+ 2-dose series)[facility] HealthcareStart: 96-28-0380VWzK/Tdap/Td Vaccines (1 - Tdap)DTaP/Tdap/Td Vaccines (1 - Tdap)[facility] HealthcareStart: 87-73-8969XGS Vaccines (1 of 1 - Standard series)MMR Vaccines (1 of 1 - Standard series)[facility]OMS HealthcareCHLAMYDIA TRACHOMATIS (GENITO/STI)CHLAMYDIA TRACHOMATIS (GENITO/STI) Lab Routine Exposure to STD Ordered: 05/29/2024[facility] HealthcareComment on above:Ordered: 05/29/2024 CHLAMYDIA TRACHOMATIS (GENITO/STI)CHLAMYDIA TRACHOMATIS (GENITO/STI) Lab Routine Exposure to STD Ordered: 06/27/2025[facility] HealthcareComment on above:Ordered: 06/27/2025ytology Cervical or vaginal smear or scraping studyPap Smear Pathology and Cytology Routine Well woman exam with routine gynecological exam Ordered: 05/29/2024[facility] Healthcare Work Phone: comment on above:Ordered: 05/29/2024ytology Cervical or vaginal smear or scraping studyPap Smear Pathology and Cytology Routine Well woman exam with routine gynecological exam Ordered: 06/27/2025[facility] Healthcare Work Phone: comment on above:Ordered: 06/27/2025Neisseria gonorrhoeae DNA [Presence] in Unspecified specimen by RADHA with probe detection Neisseria gonorrhea DNA probe, direct Lab Routine Exposure to STD Ordered: 05/29/2024[facility] HealthcareComment on above:Ordered: 05/29/2024Neisseria gonorrhoeae DNA [Presence] in Unspecified specimen by RADHA with probe detection Neisseria gonorrhea DNA probe, direct Lab Routine Exposure to STD Ordered: 06/27/2025[facility] HealthcareComment on above:Ordered: 06/27/2025SURESWAB(R) ADVANCED VAGINITIS PLUS, TMASURESWAB(R) ADVANCED VAGINITIS PLUS, TMA Pathology and Cytology Routine Vaginal discharge Ordered: 05/29/2024[facility] HealthcareComment on above:Ordered: 05/29/2024SURESWAB(R) ADVANCED VAGINITIS PLUS, TMASURESWAB(R) ADVANCED VAGINITIS PLUS, TMA Pathology and Cytology Routine Vaginal discharge Ordered: 06/27/2025[facility] HealthcareComment on above:Ordered: 06/27/2025 Immunizations Immunization DateImmunizationNotesCare ImpysqaoNumwbbpd97-92-9758zcddtvx toxoid, reduced diphtheria toxoid, and acellular pertussis vaccine, [facility]02-04-2020tetanus toxoid, reduced diphtheria toxoid, and acellular pertussis vaccine, adsorbedSummer Mares SWEEP PRESS OPERATOR-PLANNING DIRECTOR Work Phone: [facility] HospitalQttabk95-04-8994coermsvjaz, tetanus toxoids and acellular pertussis vaccine, unspecified formulationSummer Mares SWEEP PRESS OPERATOR-PLANNING DIRECTOR Work Phone: [facility] HospitalSnwors19-10-7722xkjixuqswy, tetanus toxoids and acellular pertussis vaccineSummer Mares SWEEP PRESS OPERATOR-PLANNING DIRECTOR Work Phone: [facility] Work Phone: [phone]tftvtyb influenzae type b vaccine, PRP-T conjugateSummer Mares SWEEP PRESS OPERATOR-PLANNING DIRECTOR Work Phone: [facility] HospitalZnsqht22-95-4047rejcltqsfzmx conjugate vaccine, 7 valentSummer Mares SWEEP PRESS OPERATOR-PLANNING DIRECTOR Work Phone: [facility] HospitalOnkpqf52-79-9976UEiV-fsibvpwis B and poliovirus vaccineSummer Mares SWEEP PRESS OPERATOR-PLANNING DIRECTOR Work Phone: [facility] HospitalIaxcdt64-05-2072snblswxxllh influenzae type b vaccine, PRP-T conjugateSummer Mares SWEEP PRESS OPERATOR-PLANNING DIRECTOR Work Phone: [facility]03-12-2004measles, mumps and rubella virus vaccineSummer Mares SWEEP PRESS OPERATOR-PLANNING DIRECTOR Work Phone: [facility] HospitalTqygww53-27-9842ulmqldqtt virus vaccineSummer Mares SWEEP PRESS OPERATOR-PLANNING DIRECTOR Work Phone: [facility] HospitalNmyika91-69-1066QTzU-wkvrrowio B and poliovirus vaccineSummer Mares SWEEP PRESS OPERATOR-PLANNING DIRECTOR Work Phone: [facility] HospitalLnoevm84-81-9623eatmpeyudvs influenzae type b vaccine, PRP-T conjugateSummer Mares SWEEP PRESS OPERATOR-PLANNING DIRECTOR Work Phone: [facility] HospitalSlkcny80-55-3534eoexglykqvvc conjugate vaccine, 7 valentSummer Mares SWEEP PRESS OPERATOR-PLANNING DIRECTOR Work Phone: [facility] HospitalRiatbn17-71-9540PDnX-gtrnvdgxd B and poliovirus vaccineSummer Mares SWEEP PRESS OPERATOR-PLANNING DIRECTOR Work Phone: [facility] HospitalAcmlhr97-37-4658ddtxwhnflxo influenzae type b vaccine, PRP-T conjugateSummer Mares SWEEP PRESS OPERATOR-PLANNING DIRECTOR Work Phone: [facility] HospitalFfomjw79-52-4975mbfaypvnymaj conjugate vaccine, 7 valentSummer Mares SWEEP PRESS OPERATOR-PLANNING DIRECTOR Work Phone: [facility] HospitalXvancc61-21-7795vxnqdzcce B vaccine, pediatric or pediatric/adolescent dosageSummer Mares SWEEP PRESS OPERATOR-PLANNING DIRECTOR Work Phone: [facility] Payers DatePayer CategoryPayerPolicy [id number] Health [id number] [id number] 2022Medicaid (Managed Care)[facility] MEDICAID [id number] 2018Medicaid [id number] 2018Medicaid [place] on file Ezvhwmo: JIM BENSON [address] [place] [id number] [id number] 2.0.1.543999.3.57[id number] 2..1.861191.3.57[id number] 2.0.1.432597.3.57[id number] 2..1.875847.3.57[id number] 2.0.1.746657.3.57[id number] 2..1.795645.3.579.[id number] 2..1.488053.3.57[id number] 2.0.1.521508.3.57[id number] 2.0.1.807690.3.579.2.977795-84-3178Tmtxykk5603702 2..1.058833.3.579.2.787456-60-9413Hpycgca9533460 2.0.1.833356.3.57[id number] 2.16.840.1.665383.3.57[id number] 2.0.1.931274.3.579.2.[id number] 2.840.1.971349.3.57[id number] 2..1.553800.3.579.[id number] 2.0.1.131769.3.57[id number] 2..1.721155.3.57[id number] 2..1.349764.3.57[id number] 2..1.721906.3.579.2.[id number] 2..1.183104.3.579.[id number] 2.0.1.012832.3.579.2.56219-90-6412Mfudklp0358685 2..1.093686.3.579.2.22285-73-3551Btcztcf9125674 2..1.288364.3.579.2.31854-32-9165TkunajbTMT450Q5766410-72-7355Igknnlr [id number] 2.840.1.276990.3.579.2.531 Social History DateTypeDetailFacilityStart: 32-86-5999Ddztnts smoking status NHISTobacco smoking consumption unknownNOMS HealthcareStart: 37-58-6300Yphsiek use and exposureUser of smokeless tobaccoNOMS HealthcareStart: 11-18-2023 End: 94-54-8567Wknrnwt intakeLifetime non-drinker (finding)[facility] HealthcareStart: 05-19-2023 End: 52-80-0492Zjjfjgz of Social functionNOMS HealthcareStart: 05-19-2023 End: 97-34-2146Fieapun use panelNOMS HealthcareStart: 01-95-5117Imo Assigned At BirthNot on fileNOMS HealthcareStart: 22-81-0858CtiauhvnkWHJE HealthcareStart: 93-61-6307Csa assigned at birthFemalCache Valley Hospital HealthcareStart: 87-75-9507Evfloe identityIdentifies as female gender (finding)[facility] HealthcareStart: 01-23-2024 Sexual orientationHeterosexual (finding)[facility] HealthcareStart: 22-89-7956Uddbhzt smoking status NHISNever smoked tobaccoBlanchard Valley Health System [facility] SystemStart: 01-15-2023 Tobacco use and exposureSmokeless tobacco non-userBlanchard Valley Health System [facility] SystemStart: 64-11-6599Mekelwita of Alcohol ConsumptionNeverBlanchard [facility] SystemStart: 11-97-4934CrxGdjngi (finding)[facility] Clinical Notes 12-20-2023 to 07-04-2025 Note Date & RhigPplsToavqbbn42-06-4930 Miscellaneous Notes* Telephone Encounter - Brittney Rome [...] wellness visit. Letter sent. documented in this encounterGrand Lake Joint [facility]09-25-2025 Telephone encounter Note* Telephone Encounter [...] to schedule yearly wellness visit. Letter sent. [facility]09-18-2025 History of Present illness Narrative* Bushra Santillan - 06/27/2025 10:40 AM EDT Reason for Appointment: Patient ID: Lorie Martinez is a 24 y.o. female who presents for Pre-op Visit, Gynecologic Exam, andWell Women Visit Patient presents today for Pre Op/Annual appointment. Patient is scheduled to undergo [facility] assisted Bilateral Laparoscopic Salpingectomy on 08-02-[address] Abbasi at [facility]. MEDICATIONS Current Outpatient Medications Medication Instructions citalopram (CELEXA) 20 mg, Oral, Daily ibuprofen 800 mg, Every 8 hours ALLERGIES Allergies Allergen Reactions Ondansetron Rash PROBLEMS Active Ambulatory Problems Diagnosis Date Noted Anxiety with depression 09/25/2024 6 weeks follow-up ([facility]) 12/12/2024 Postoperative follow-up 12/12/2024 Resolved Ambulatory Problems Diagnosis Date Noted 32 weeks gestation of ([facility]) 09/25/2024 Third trimester ([facility]) 09/25/2024 36 weeks gestation of ([facility]) 10/22/2024 Past Medical History: Diagnosis Date [...] reviewed, and patient is to proceed to [facility] OR. Follow Up: Patient is to follow up between 1-2 weeks post operative/weight loss to assess proper healing and recovery from procedure. Documented by Pankaj Bloom LPN on behalf of: Harry Abbasi DO documented in this encounterMosaic Life Care at St. JosephShyfdkfaru26-37-1588 History of Present illness Narrative* Pankaj Bloom, ANUP - 05/27/2025 10:10 AM EDT Reason for [...] Anxiety with depression 09/25/2024 6 weeks follow-up ([facility]) 12/12/2024 Postoperative follow-up 12/12/2024 Resolved Ambulatory Problems Diagnosis Date Noted 32 weeks gestation of ([facility]) 09/25/2024 Third trimester ([facility]) 09/25/2024 36 weeks gestation of ([facility]) 10/22/2024 Past Medical History: Diagnosis Date [...] nursing note reviewed. Exam conducted with a per diem physical therapist present. Vitals: Estimated body mass index is [...] of: Harry Abbasi DO documented in this encounterMosaic Life Care at St. JosephYypaterlsk02-62-9399 History of Present illness Narrative* MAEGAN Link [...] Diagnosis Date ADHD (attention deficit hyperactivity disorder) ([facility]) HISTORY PAST MEDICAL HISTORY SOCIAL HISTORY Past [...] behalf of: MAEGAN Link documented in this encounterMosaic Life Care at St. JosephHkozklljbn38-12-0109 History of Present illness Narrative* MAEGAN Link [...] Diagnosis Date ADHD (attention deficit hyperactivity disorder) ([facility]) HISTORY PAST MEDICAL HISTORY SOCIAL HISTORY Past Medical History: Diagnosis Date ADHD (attention deficit hyperactivity disorder) ([facility]) Social History Tobacco Use Smoking [...] behalf of: MAEGAN Link documented in this encounterMosaic Life Care at St. JosephFiahssrdhj92-33-6301 History of Present illness Narrative* Pankaj Bloom, ANUP - 11/08/2024 11:10 AM EST Reason for [...] Diagnosis Date ADHD (attention deficit hyperactivity disorder) ([facility]) HISTORY PAST MEDICAL HISTORY SOCIAL HISTORY Past Medical History: Diagnosis Date ADHD (attention deficit hyperactivity disorder) ([facility]) Social History Tobacco Use Smoking [...] nursing note reviewed. Exam conducted with a per diem physical therapist present. Vitals: Estimated body mass index is [...] of: Harry Abbasi DO documented in this encounterMosaic Life Care at St. JosephAhckopkhih63-19-4066 History of Present illness Narrative* MAEGAN Link [...] behalf of: MAEGAN Link documented in this encounterMosaic Life Care at St. JosephRxbyrdvnsl56-08-3291 History of Present illness Narrative* Pankaj Bloom [...] Diagnosis Date ADHD (attention deficit hyperactivity disorder) ([facility]) HISTORY PAST MEDICAL HISTORY SOCIAL HISTORY Past Medical History: Diagnosis Date ADHD (attention deficit hyperactivity disorder) ([facility]) Social History Tobacco Use Smoking [...] of: Harry Abbasi DO documented in this encounterMosaic Life Care at St. JosephTyyhyqgroc58-78-9259 History of Present illness Narrative* Pankaj Bloom [...] Diagnosis Date ADHD (attention deficit hyperactivity disorder) ([facility]) HISTORY PAST MEDICAL HISTORY SOCIAL HISTORY Past [...] nursing note reviewed. Exam conducted with a per diem physical therapist present. Vitals: Estimated body mass index is [...] of: Harry Abbasi DO documented in this encounterMosaic Life Care at St. JosephTlrksivtrj71-73-4933 History of Present illness Narrative* MAEGAN Link [...] Diagnosis Date ADHD (attention deficit hyperactivity disorder) ([facility]) HISTORY PAST MEDICAL HISTORY SOCIAL HISTORY Past Medical History: Diagnosis Date ADHD (attention deficit hyperactivity disorder) ([facility]) Social History Tobacco Use Smoking [...] nursing note reviewed. Exam conducted with a per diem physical therapist present. Vitals: Estimated body mass index is [...] behalf of: MAEGAN Link documented in this encounterMosaic Life Care at St. JosephXnnhknqath13-85-8331 History of Present illness Narrative* Shanice Baker [...] Diagnosis Date ADHD (attention deficit hyperactivity disorder) ([facility]) HISTORY PAST MEDICAL HISTORY SOCIAL HISTORY Past [...] nursing note reviewed. Exam conducted with a per diem physical therapist present. Vitals: Estimated body mass index is [...] of: Harry Abbasi DO documented in this encounterMosaic Life Care at St. JosephXvwndavifp46-90-3536 History of Present illness Narrative* MAEGAN Link [...] behalf of: MAEGAN Link documented in this encounterMosaic Life Care at St. JosephHrldjhpwgf79-24-8686 History of Present illness Narrative* Pankaj Bloom LPN - 07/30/2024 9:10 AM EDT Reason for [...] Diagnosis Date ADHD (attention deficit hyperactivity disorder) ([facility]) HISTORY PAST MEDICAL HISTORY SOCIAL HISTORY Past [...] nursing note reviewed. Exam conducted with a per diem physical therapist present. Vitals: Estimated body mass index is [...] week with [facility] in [place] and will reach out to there office to reschedule appointment. Documented by Pankaj Bloom LPN on behalf of: Harry Abbasi DO documented in this encounterMosaic Life Care at St. JosephTfsqsclosb69-50-4916 History of Present illness Narrative* Yimi Gallo DO - 07/04/2024 11:45 AM EDT Subjective [...] swollen. Comments: Light green mucus Mouth/Throat: Lips: [place]. Mouth: Mucous membranes are moist. Dentition: Normal [...] nostril in the morning. documented in this encounterGrand Lake Joint [facility]09-19-2024 History of Present illness Narrative* [...] Diagnosis Date ADHD (attention deficit hyperactivity disorder) ([facility]) HISTORY PAST MEDICAL HISTORY SOCIAL HISTORY Past Medical History: Diagnosis Date ADHD (attention deficit hyperactivity disorder) ([facility]) Social History Tobacco Use Smoking [...] behalf of: MAEGAN Link documented in this encounterMosaic Life Care at St. JosephWerqicwoho06-52-8944 History of Present illness Narrative* Shanice Campbellemma, PRODUCTION CONSULTANT - 05/29/2024 10:50 AM EDT Reason for [...] Diagnosis Date ADHD (attention deficit hyperactivity disorder) ([facility]) HISTORY PAST MEDICAL HISTORY SOCIAL HISTORY Past Medical History: Diagnosis Date ADHD (attention deficit hyperactivity disorder) ([facility]) Social History Tobacco Use Smoking [...] nursing note reviewed. Exam conducted with a per diem physical therapist present. Vitals: Estimated body mass index is [...] annual exam/routine obstetrics appointment. Patient is currently [id number]. Patient states she is doing well but [...] Shanice Baker LPN on behalf of: Harry bAbasi DO documented in this encounterMosaic Life Care at St. [id number] History of Present illness Narrative* Mireya Colón, [employer] TRAFFIC GUARD - 02/17/2024 9:20 AM EDT [address] [place] [address] Patient: Ash Martinez Date of : 2000 [...] (attention deficit hyperactivity disorder) Anger Bipolar disorder ([facility]) PTSD (post-traumatic stress disorder) Past Surgical History: [...] JUAN APRN-CNP 02/17/24 1057 documented in this encounterGrand [facility] History of Present illness Narrative* Summer Mares, SWEEP PRESS OPERATOR-PLANNING DIRECTOR - 12/20/2023 3:20 PM EDT Subjective Patient [...] in adult She has her contraception and handicapped teacher care thru Dr Abbasi, she should continue [...] JOHN Thrasher 12/20/23 1629 [facility]* Diagnosis 24 weeks gestation of Diabetes mellitus screening Screening for diabetes mellitus documented [facility] this encounter [facility]* Diagnosis Third trimester state, incidental 28 weeks gestation of size inconsistent with dates [facility]* Diagnosis Third trimester state, incidental 30 weeks gestation of documented in this encounter [facility]* Diagnosis 32 weeks gestation [...] mention of complication documented in this encounter [facility]* Diagnosis PTSD (post-traumatic stress disorder)- Primary Posttraumatic stress disorder General counseling and advice for contraceptive management Class 2 obesity due to excess calories without serious comorbidity with body mass index (BMI) of 37.0 to 37.9 in adult [facility] Diagnosis Nasal congestion- Primary Other diseases of nasal cavity and sinuses Viral URI Acute upper respiratory infections of unspecified site documented in this encounter [facility]* Diagnosis Postoperative follow-up Follow-up examination, following unspecified surgery [facility]* Diagnosis Sterilization consult Other general counseling and advice for contraceptive management [facility]* Diagnosis Pre-op examination Request for sterilization Well woman exam with routine gynecological exam Routine gynecological examination Exposure to STD Vaginal discharge Leukorrhea, not specified as infective Upper back pain Unspecified backache documented in this [facility] noteNo assessment information availableAdena Regional Medical Center Work Phone: InstructionsNot on filedocumented in this encounter [facility] SystemInstructionsNot on filedocumented in this encounter [facility] SystemInstructionsNot on filedocumented in this encounter [facility] SystemReason for referral (narrative)* Consultation (Routine) - Pending ReviewSpecialtyDiagnoses / ProceduresReferred By ContactReferred To Contact Diagnoses PTSD (post-traumatic stress disorder) Summer Mares APRN-FNP [address] [place] [address] Referral IDStatusReasonStart DateExpiration DateVisits RequestedVisits [id number] Review Patient Preference / [facility] HospitalReason for referral (narrative)No reason for referral information availableAdena Regional Medical Center Work Phone: Summary Purpose Family History No Family History Records FoundNo Family History Records FoundNo Family History Records FoundNo Family History Records FoundNo Family History Records FoundNo Family History Records Found Advance Directives Advance Directive Response Recorded Date/ Time Advance Directives No August 02, 2025 12:08pm Additional Source Comments INFORMATION SOURCE (unrecogn ized section and content) DATE CREATED AUTHOR 01/27/2023 [facility] DATE CREATED AUTHOR AUTHOR'S ORGANIZ ATION 02/20/2024 [facility] DATE CREATED AUTHOR AUTHOR'S ORGANIZ ATION 07/06/2024 [facility] DATE CREATED AUTHOR AUTHOR'S ORGANIZ ATION 06/28/2025 [facility] DATE CREATED AUTHOR AUTHOR'S ORGANIZ ATION 06/29/2025 [facility] DATE CREATED AUTHOR AUTHOR'S ORGANIZ ATION 08/06/2025 [facility] Care Teams (unrecognized sec tion and content) Team MemberRelationshipSpecialtyStart DateEnd Date Reid Jasmine MD PCP - GeneralFamily Nkrstxmm76/23/23Team MemberRelationshipSpecialtyStart Date End Date Summer Mares APRN-FNP [address] [place] [address] PCP - GeneralInternal Enjdfmcv15/6/23Team MemberRelationshipSpecialtyStart Date End Date Summer Mares, SWEEP PRESS OPERATOR-PLANNING DIRECTOR [address] [place] [address] PCP - GeneralInternal Anpkhqrh67/6/23Team MemberRelationshipSpecialtyStart Date End Date Mireya Colón SWEEP PRESS OPERATOR-SCHOOL TRAFFIC GUARD [address] [place] [address] PCP - GeneralFamily Medicine05/22/24Team MemberRelationshipSpecialtyStart DateEnd Date Mireya Colón SWEEP PRESS OPERATOR-SCHOOL TRAFFIC GUARD [address] [place] [address] PCP - GeneralFamily Medicine06/28/25 Team Status: Inactive Member Role/Relationship Status Dates Harry Abbasi DO Attending Provider Active Start : August 02, 2025 End: August 02, 2025 Reason for Visit (unrecogniz ed section and content) ReasonCommentsRoutine JddrrSwejtpVqlfamngVsmyxtawysy79/06ReasonComments Annual ExamReasonCommentsNasal CongestionVomitingFeverReasonCommentsPost-op VisitPostpartum Follow-upReasonCommentsDiscuss TubalReasonCommentsPre-op Visit Gynecologic ExamWell Women VisitReasonOnset BnzeLmkksewyOqapeogrznb60/25/2025 Goals (unrecognized section and content) Goals may be documented in a n alternate section FOR RECORDS PERTAINING TO PATIENTS WHO ARE [...] BE BASED ON THE PRIMARY CLINICAL RECORDS. [employer] [facility]. provides no warranty or guarantee of the accuracy or completeness of information in this document.
--- OUTSIDE RECORDS SUMMARY | 2025-08-10 16:22 | XMS_ITS | Encounter Summary ---
Author Organization [facility] Address [address] [place] [address] Care Team Providers Care Mark Up Designer Name Role Phone Unavailable Primary Care Provider Unavailabl e Encounter Details DateTypeDepartmentCare Team (Latest Contact Info)Mmpxoeyhbqh44/23/2024Clinisync Result Encounter [facility] External Department Unsolicited Carmen Abbasi DO [address] Lisa Rocha, [facility] Social History Tobacco UseTypesPacks/DayYears UsedDateSmoking Tobacco: UnknownSmokeless Tobacco: CurrentAlcohol UseStandard Drinks/WeekCommentsNever0 (1 standard drink = 0.6 oz pure alcohol)CommentsYesSex and Gender InformationValueDate RecordedSex Assigned at UwxpaPxfiii03/15/2024 11:09 AM EDTLegal SexFemale 12/22/2022 6:41 PM EDTGender EplzkztlKtmieb17/15/2024 11:09 AM EDTSexual BqbojynfiyqFfhgeszl98/15/2024 11:09 AM EDTdocumented as of this encounter Plan of Treatment DateTypeDepartmentCare Team (Latest Contact Info)Repkrdbewkf32/03/2025 8:30 AM ESTOffice Visit [facility] [place] [address] [place] [address] Alyssa Bazan PA [address] [place] [address] documented as of this encounter Procedures Procedure NamePriorityDate/TimeAssociated DiagnosisCommentsUS OB TRANSVAGINAL 07/02/2024 9:32 AM EDT documented in this encounter Results * US OB TRANSVAGINAL (07/02/2024 9:32 AM EDT)Anatomical RegionLateralityModality OtherSpecimen (Source)Anatomical Location / LateralityCollection Method / VolumeCollection TimeReceived Time07/02/2024 9:32 AM EDT Narrative 07/02/2024 9:35 AM EDT [facility] ?[address] ? [place] [address] ? Ultrasound Report ? Signed ? Patient: LETICIACecilASH Reyes ?MR#: [id number] ?? : 2000 ?Acct:[id number] ?? Age/Sex: 23 / F ?ADM Date: 07/02/24 ?? [facility] ? Attending Dr: Carmen Abbasi D.O. ? Ordering Physician: Carmen Abbasi D.O. ?? Date of Service: 07/02/24 ?? Procedure(s): US OB transvaginal ?? Accession Number(s): [id number] ? cc: Carmen Abbasi D.O.; ELISA MARES ? [facility] ? [address] ? [place] [address] ? Patient Name: ?? ASH MARTINEZ ? MRN: [facility]:[id number] ? date: 2000 ?Sex: F ?? Assigned Patient Location: [facility] ?? Current Patient Location: [facility] ?? Accession/Order Number: [id number] ?? Exam Date: 07/02/2024 ??08:30 ?Report Date: 07/02/2024 ??09:32 ? At the request of: ?? CARMEN ??AYLEEN ? Procedure: ??US OB transvaginal ? EXAMINATION: US OB anatomy, US OB transvaginal ? HISTORY: ANATOMY ? COMPARISON: No relevant comparison available. ? TECHNIQUE: Transabdominal sonographic examination was performed for ?? obstetrical ?? and evaluation. ? FINDINGS: ? Limited exam due to maternal body habitus ? Number: 1 ?? Heart Rate: 155 bpm H.B. /min ?? Amniotic Fluid Volume: Subjectively normal ?? position: Cephalic presentation, longitudinal lie ?? Placental Location: ANTERIOR, the placental edge is 3.3 cm from the internal ?? cervical os ?? Cervix Length: 3.97 cm , closed ? Normal anatomy: Lateral ventricles, cerebellum, posterior fossa, nose, lips, ?? orbits, diaphragm, stomach, kidneys, abdominal cord insertion, bladder, ?? umbilical arteries, spine, extremities ? Suboptimal visualization: Four-chamber heart ? Nonvisualization: RVOT, LVOT, three-vessel cord ? BIOMETRY: ?? BPD: 4.75 cm; 20 weeks 3 days; 46.60 % ?? HC: 17.73 cm; 20 weeks 1 day; 31.30 % ?? AC: 14.84 cm; 20 weeks 1 day; 33.10 % ?? FL: 3.55 cm; 21 weeks 2 days; 69.90 % ?? EFW:343.10 g; 53.40 %, 13 ounces ?? FL/AC: 23.92 ?? FL/BPD: 74.74 ?? HC/AC: 1.19 ? GESTATIONAL AGE: ?? Age by EDC: 20 weeks 3 days ?? MYESHA by EDC: 2024-11-16 ? Age by current US: 20 weeks 4 days ?? MYESHA by current US: 2024-11-15 ? US/US OB transvaginal ?? IMPRESSION: ? Suboptimal and nonvisualization detailed above ? Otherwise normal anatomy scan ? Closed cervix measuring 4 cm in length ? *Reference: [employer] Practice Guideline for the performance of Obstetric ?? Ultrasound ?? Examinations, July 10, 2007. ? Electronically authenticated by: MARQUES ??WEST ?? Date: 07/02/2024 ??09:32 ? Dictated By: ?Marques Ramirez M.D. ? Signed By: ?07/02/24 09 ? DD/ 0932 ? TD/TT: ? Finance Administrator: Procedure Note Radiology, Radiologist, - 07/02/[address] [address] Ultrasound Report Signed Patient: ASH MARTINEZ KMR#: [id number] : 2000Acct:[id number] Age/Sex: 23 / FADM Date: 07/02/24 Loc: [facility] Attending Dr: Carmen Abbasi D.O. Ordering Physician: Carmen Abbasi D.O. Date of Service: 07/02/24 Procedure(s): US OB transvaginal Accession Number(s): [id number] cc: Carmen Abbasi D.O.; ELISA MARES [place] [address] Patient Name: ASH MARTINEZ MRN: [facility]:[id number] date: 2000 Sex: F Assigned Patient Location: [facility] Current Patient Location: [facility] Accession/Order Number: [id number] Exam Date: 07/02/2024 08:30 Report Date: 07/02/2024 [...] Marques Ramirez M.D. Signed By:07/02/2435 DD/ TD/TT: Finance Administrator: Authorizing ProviderResult TypeResult StatusCorey Ayleen DOCLINISYNC IMAGINGFinal Result documented in this encounter Visit Diagnoses Not on filedocumented in this encounter
--- OUTSIDE RECORDS SUMMARY | 2025-08-10 16:22 | XMS_ITS | Encounter Summary ---
Author Organization [facility] Address [address] [place] [address] Care Team Providers Care Cuff Slitter Name Role Phone Unavailable Primary Care Provider Unavailabl e Encounter Details DateTypeDepartmentCare Team (Latest Contact Info)Zuoitbmdhyi95/23/2024Clinisync Result Encounter [facility] External Department Unsolicited Carmen Abbasi DO [address] Lisa [place]ocha, [facility] Social History Tobacco UseTypesPacks/DayYears UsedDateSmoking Tobacco: UnknownSmokeless Tobacco: CurrentAlcohol UseStandard Drinks/WeekCommentsNever0 (1 standard drink = 0.6 oz pure alcohol)CommentsYesSex and Gender InformationValueDate RecordedSex Assigned at YcypoOdslmq79/15/2024 11:09 AM EDTLegal SexFemale 12/22/2022 6:41 PM EDTGender HlzxxtawNaamts10/15/2024 11:09 AM EDTSexual HcyrewldnegWkqpkyre93/15/2024 11:09 AM EDTdocumented as of this encounter Plan of Treatment DateTypeDepartmentCare Team (Latest Contact Info)Egijwcukmgg80/03/2025 8:30 AM ESTOffice Visit [facility] [place] [address] [address] Alyssa Bazan PA [address] [place] [place] [address] documented as of this encounter Procedures Procedure NamePriorityDate/TimeAssociated DiagnosisCommentsUS OB ANATOMY 07/02/2024 9:32 AM EDT documented in this encounter Results * US OB ANATOMY (07/02/2024 9:32 AM EDT)Anatomical RegionLateralityModalityOther Specimen (Source)Anatomical Location / LateralityCollection Method / Volume Collection TimeReceived Time07/02/2024 9:32 AM EDT Narrative 07/02/2024 9:35 AM EDT [facility] ?[address] ? [place] [address] ? Ultrasound Report ? Signed ? Patient: ASH MARTINEZ ?MR#: [id number] ?? : 2000 ?Acct:[id number] ?? Age/Sex: 23 / F ?ADM Date: 07/02/24 ?? Loc: [facility] ? Attending Dr: Carmen Abbasi D.O. ? Ordering Physician: Carmen Abbasi D.O. ?? Date of Service: 07/02/24 ?? Procedure(s): US OB anatomy ?? Accession Number(s): [id number] ? cc: Carmen Abbasi D.O.; ELISA MARES ? [facility] ? [address] ? [place] [address] ? Patient Name: ?? ASH Eric AZALIA ? MRN: [facility]:[id number] ? date: 2000 ?Sex: F ?? Assigned Patient Location[facility] ?? Current Patient Location[facility] ?? Accession/Order Number: [id number] ?? Exam Date: 07/02/2024 ??08:30 ?Report Date: 07/02/2024 ??09:32 ? At the request of: ?? CARMEN ??AYLEEN ? Procedure: ??US OB anatomy ? EXAMINATION: US OB anatomy, US OB [...] by current US: 2024-11-15 ? US/US OB anatomy ?? IMPRESSION: ? Suboptimal and nonvisualization detailed above ? Otherwise normal anatomy scan ? Closed cervix measuring 4 cm in length ? *Reference: [employer] Practice Guideline for the performance of Obstetric ?? Ultrasound ?? Examinations, July 10, 2007. ? Electronically authenticated by: MARQUES ??WEST ?? Date: 07/02/2024 ??09:32 ? Dictated By: ?Marques Ramirez M.D. ? Signed By: ?07/02/24 0935 ? DD/ 0932 ? TD/TT: ? Capacity Planning Engineer: Procedure Note Radiology, Radiologist, MD - 07/02/[address] [address] Ultrasound Report Signed Patient: ASH MARTINEZ KMR#: [id number] : 2000Acct:[id number] Age/Sex: 23 / FADM Date: 07/02/24 Loc: [facility] Attending Dr: Carmen Abbasi D.O. Ordering Physician: Carmen Abbasi D.O. Date of Service: 07/02/24 Procedure(s): US OB anatomy Accession Number(s): [id number] cc: Carmen Abbasi D.O.; ELISA MARES [place] [address] Patient Name: ASH MARTINEZ MRN: [facility]:[id number] date: 2000 Sex: F Assigned Patient Location: [facility] Current Patient Location: [facility] Accession/Order Number: [id number] Exam Date: 07/02/2024 08:30 Report Date: 07/02/2024 [...] Marques Ramirez M.D. Signed By:07/02/2435 DD/ TD/TT: Capacity Planning Engineer: Authorizing ProviderResult TypeResult StatusCorey Ayleen DOCLINISYNC IMAGINGFinal Result documented in this encounter Visit Diagnoses Not on filedocumented in this encounter
--- OUTSIDE RECORDS SUMMARY | 2025-08-10 16:23 | XMS_ITS | Encounter Summary ---
Author Organization [facility] Address [address] [place] [address] Care Team Providers Care Soft Hat Binder Name Role Phone Unavailable Primary Care Provider Unavailabl e Encounter Details DateTypeDepartmentCare Team (Latest Contact Info)Cmcxgbgwnpt61/02/2024Clinisync Result Encounter [facility] External Department Unsolicited Carmen Abbasi DO [address] [facility] [address] [place], [facility]11 Social History Tobacco UseTypesPacks/DayYears UsedDateSmoking Tobacco: UnknownSmokeless Tobacco: CurrentAlcohol UseStandard Drinks/WeekCommentsNever0 (1 standard drink = 0.6 oz pure alcohol)CommentsYesSex and Gender InformationValueDate RecordedSex Assigned at TdekmHoflef02/15/2024 11:09 AM EDTLegal SexFemale 12/22/2022 6:41 PM EDTGender YfszteeuBqhzae99/15/2024 11:09 AM EDTSexual YxtarvlxankBdwkvyii13/15/2024 11:09 AM EDTdocumented as of this encounter Plan of Treatment DateTypeDepartmentCare Team (Latest Contact Info)Qbdrtmwyxel64/03/2025 8:30 AM ESTOffice Visit [facility] [place] [address] [place] [address] Alyssa Bazan PA [address] [place] [address] documented as of this encounter Procedures Procedure NamePriorityDate/TimeAssociated DiagnosisCommentsUS OB TRANSVAGINAL 05/11/2024 9:50 AM EDT TBH BOX TEST SENT IMQKlhccun46/02/2024 9:47 AM EDT HBSAG NIVSKTMhptkuj58/02/2024 9:47 AM EDT RAPID PLASMA REAGIN, IRXTCTczficd12/02/2024 9:47 AM EDT HIV AB/P24 AG WITH HNCVODEcfrgzm25/02/2024 9:47 AM EDT HCV ANTIBODY RFX TO QUANT RQXTqqfegs64/02/2024 9:47 AM EDT MLR HEMOGLOBIN A1GJoigriu79/02/2024 9:47 AM EDT ALL TYPE AND RPYVVDHlaeumy01/02/2024 9:47 AM EDT ALL RUBELLA IGG ADUzivjzr46/02/2024 9:47 AM EDT ALL CBC WITH AUTO ZNFJWyogxyv98/02/2024 9:47 AM EDT documented in this encounter Results * US OB TRANSVAGINAL (05/11/2024 9:50 AM EDT)Anatomical RegionLateralityModality OtherSpecimen (Source)Anatomical Location / LateralityCollection Method / VolumeCollection TimeReceived Time05/11/2024 9:50 AM EDT Narrative 05/11/2024 9:53 AM EDT [facility] ?[address] ? [place] [address] ? Ultrasound Report ? Signed ? Patient: COSMOCecil,ASH K ?MR#: [id number] ?? : 2000 ?Acct:[id number] ?? Age/Sex: 23 / F ?ADM Date: 05/11/24 ?? Loc: [facility] ? Attending Dr: Carmen Abbasi D.O. ? Ordering Physician: Carmen Abbasi D.O. ?? Date of Service: 05/11/24 ?? Procedure(s): US OB transvaginal ?? Accession Number(s): [id number] ? cc: Carmen Abbasi D.O.; ELISA MARES ? [facility] ? [address] ? [place] [address] ? Patient Name: ?? ASH MARTINEZ ? MRN: [facility]:[id number] ? date: 2000 ?Sex: F ?? Assigned Patient Location: [facility] ?? Current Patient Location: LAB ?? Accession/Order Number: [id number] ?? Exam Date: 05/11/2024 ??08:31 ?Report Date: 05/11/2024 ??09:50 ? At the request of: ?? CARMEN ??AYLEEN ? Procedure: ??US OB transvaginal ? EXAMINATION: US OB transvaginal ? HISTORY: MISSED MENSES ? COMPARISON: Ultrasound OB transvaginal 04/18/2024 ? FINDINGS: ? GESTATIONAL SAC: Present and normal appearing. ?? YOLK SAC: Absent. ?? POLE: Present and normal appearing. ?? CARDIAC: Present. ? UTERUS: Normal size and appearance. ?? OVARIES: Right: Not seen. Left: Not seen. ?? CERVIX: 4.7 cm in length and closed. ?? CUL-DE-SAC: Normal. ?? OTHER: None. ? AGE BY LMP: Unknown LMP ?? MYESHA BY LMP: ?? AGE BY US CRL: 13 weeks 0 days ?? MYESHA BY US CRL: 11/16/2024 ? US/US OB transvaginal ?? IMPRESSION: ? 1. Single live intrauterine . ? Electronically authenticated by: JOSE ??AJIT ?? Date: 05/11/2024 ??09:50 ? Dictated By: ?Jose Hernandes M.D. ? Signed By: ?05/11/24 0953 ? DD/ 0950 ? TD/TT: ? Cloth Finishing Range Operator Chief: Procedure Note Radiology, Radiologist, - 05/11/[address] [address] Ultrasound Report Signed Patient: ASH MARTINEZ KMR#: [id number] : 2000Acct:[id number] Age/Sex: 23 / FADM Date: 05/11/24 Loc: [facility] Attending Dr: Carmen Abbasi D.O. Ordering Physician: Carmen Abbasi D.O. Date of Service: 05/11/24 Procedure(s): US OB transvaginal Accession Number(s): [id number] cc: Carmen Abbasi D.O.; ELISA MARES [place] [address] Patient Name: ASH MARTINEZ MRN: [facility]:[id number] date: 2000 Sex: F Assigned Patient Location: [facility] Current Patient Location: LAB Accession/Order Number: [id number] Exam Date: 05/11/2024 08:31 Report Date: 05/11/2024 [...] Jose Hernandes M.D. Signed By:05/11/2453 DD/ TD/TT: Cloth Finishing Range Operator Chief: Authorizing ProviderResult TypeResult StatusCorey Ayleen DOCLINISYNC IMAGINGFinal Result * TBH BOX TEST SENT OUT (05/11/2024 9:47 AM EDT)ComponentValueRef RangeTest MethodAnalysis TimePerformed AtPathologist SignatureBOX TEST SENT OUT05/11/24 TBHSpecimen (Source)Anatomical Location / LateralityCollection Method / Volume Collection TimeReceived Time05/11/2024 9:47 AM EDT05/11/2024 9:53 AM EDT Narrative CLINISYNC - 05/18/2024 3:48 PM EDT Authorizing ProviderResult TypeResult StatusCorey Ayleen DOCLINISYNCFinal Result Performing OrganizationAddressCity/State/ZIP CodePhone Number [facility] * HBSAG SCREEN (05/11/2024 9:47 AM EDT)ComponentValueRef RangeTest Method Analysis TimePerformed AtPathologist SignatureHBSAG SCREENNegativeNegativeTBH Comment: Performed at: ??[facility] ??[id number] Form Maker: Ender Win PhD, Phone: ??[phone] Specimen (Source)Anatomical Location / LateralityCollection Method / Volume Collection TimeReceived Time05/11/2024 9:47 AM EDT05/11/2024 9:53 AM EDT Narrative CLINISYCT - 05/12/2024 10:09 AM EDT Authorizing ProviderResult TypeResult StatusCorey Ayleen DOLAB BLOOD ORDERABLES Final ResultPerforming OrganizationAddressCity/State/ZIP CodePhone Number [facility] * RAPID PLASMA REAGIN, QUANT (05/11/2024 9:47 AM EDT)ComponentValueRef RangeTest MethodAnalysis TimePerformed AtPathologist SignatureRAPID PLASMA REAGIN, QUANT Non ReactiveNonRea<1:1 titerTBHComment: Please Note: This test does not meet current guidelines for screening and diagnosis of syphilis. This test is intended for following treatment response in patients being treated for syphilis infection. To screen for syphilis infection, a reflex cascade that includes both RPR and a treponema-specific assay should be utilized, such as Treponema pallidum (Syphilis) Screening [place] (569869) or Rapid Plasma Reagin (RPR) Test With Reflex to Quantitative RPR and Confirmatory Treponema pallidum Antibodies (735706). Performed at: ??[employer] ??[id number] Form Maker: Ender Win PhD, Phone: ??[phone] Specimen (Source)Anatomical Location / LateralityCollection Method / Volume Collection TimeReceived Time05/11/2024 9:47 AM EDT05/11/2024 9:53 AM EDT Narrative CLINISYCT - 05/12/2024 10:09 AM EDT Authorizing ProviderResult TypeResult StatusCorey Ayleen DOLAB BLOOD ORDERABLES Final ResultPerforming OrganizationAddRiddle Hospitalty/State/[facility] CodePhone Number [facility] * HCV ANTIBODY RFX TO QUANT PCR (05/11/2024 9:47 AM EDT)ComponentValueRef Range Test MethodAnalysis TimePerformed AtPathologist SignatureHCV ABNon ReactiveNon ReactiveTBHINTERPRETATION:Comment.TBHComment: Not infected with HCV unless early or acute infection is suspected (which may be delayed in an immunocompromised individual), or other evidence exists to indicate HCV infection. Specimen (Source)Anatomical Location / LateralityCollection Method / Volume Collection TimeReceived Time05/11/2024 9:47 AM EDT05/11/2024 9:53 AM EDT Narrative CLINISYCT - 05/12/2024 7:10 AM EDT Authorizing ProviderResult TypeResult StatusCorey Ayleen DOLAB BLOOD ORDERABLES Final ResultPerforming OrganizationAddRiddle Hospitalty/State/ZIP CodePhone Number [facility] * HIV AB/P24 AG WITH REFLEX (05/11/2024 9:47 AM EDT)ComponentValueRef RangeTest MethodAnalysis TimePerformed AtPathologist SignatureHIV AB/P24 AG SCREENNon ReactiveNon ReactiveTBHComment: HIV-1/HIV-2 antibodies and HIV-1 p24 antigen were NOT detected. There is no laboratory evidence of HIV infection. HIV Negative Performed at: ?? - [facility] ??[id number] Form Maker: Ender Win PhD, Phone: ??[phone] Specimen (Source)Anatomical Location / LateralityCollection Method / Volume Collection TimeReceived Time05/11/2024 9:47 AM EDT05/11/2024 9:53 AM EDT Narrative CLINISYCT - 05/12/2024 7:10 AM EDT Authorizing ProviderResult TypeResult StatusCorey Ayleen DOLAB BLOOD ORDERABLES Final ResultPerforming OrganizationAddRiddle Hospitalty/State/ZIP CodePhone Number [facility] * ALL RUBELLA IGG AB (05/11/2024 9:47 AM EDT)ComponentValueRef RangeTest Method Analysis TimePerformed AtPathologist SignatureRUBELLA ANTIBODIES, IGG6.75 Immune >0.99 indexTBHComment: Non-immune <0.90 ?Equivocal ??0.90 - 0.99 Immune >0.99 Performed at: ??CB - [facility] [address] ??[id number] Form Maker: Ender Win PhD, Phone: ??[phone] Specimen (Source)Anatomical Location / LateralityCollection Method / Volume Collection TimeReceived Time05/11/2024 9:47 AM EDT05/11/2024 9:53 AM EDT Narrative CLINISYNC - 05/12/2024 7:10 AM EDT Authorizing ProviderResult TypeResult StatusCorey Ayleen DOCLINISYNCFinal Result Performing OrganizationAddressty/State/ZIP CodePhone Number [facility] * MLR HEMOGLOBIN A1C (05/11/2024 9:47 AM EDT)ComponentValueRef RangeTest Method Analysis TimePerformed AtPathologist SignatureGLYCOHEMOGLOBIN A1C4.64.5 - 6.2 %TBHComment: ADA RECOMMENDED LIMIT 4.0 - 6.0 ADA THERAPEUTIC TARGET < 7.0 ACTION SUGGESTED > 7.0 ESTIMATED AVERAGE LUZJLEZ92gn/dLTBHSpecimen (Source)Anatomical Location / LateralityCollection Method / VolumeCollection TimeReceived Time05/11/2024 9:47 AM EDT05/11/2024 9:53 AM EDT Narrative CLINISYNC - 05/11/2024 11:45 AM EDT Authorizing ProviderResult TypeResult StatusCorey Ayleen DOCLINISYNCFinal Result Performing OrganizationAddressty/State/ZIP CodePhone Number [facility] * ALL TYPE AND SCREEN (05/11/2024 9:47 AM EDT)ComponentValueRef RangeTest Method Analysis TimePerformed AtPathologist SignatureBLOOD TYPEB PositiveTBHANTIBODY SCREENNEGATIVETBHSpecimen (Source)Anatomical Location / LateralityCollection Method / VolumeCollection TimeReceived Time05/11/2024 9:47 AM EDT05/11/2024 9:53 AM EDT Narrative CLINISYNC - 05/11/2024 10:56 AM EDT [facility] , ?? Authorizing ProviderResult TypeResult StatusCorey Ayleen DOCLINISYNCFinal Result Performing OrganizationAddressCity/State/ZIP CodePhone Number CLINISYNC [facility] * ALL CBC WITH AUTO DIFF (05/11/2024 9:47 AM EDT)ComponentValueRef RangeTest MethodAnalysis TimePerformed AtPathologist SignatureTBH WBC7.64.0 - 11.0 10 3/uLTBHTBH RBC4.554.20 - 5.40 10 6/uLTBHTBH HGB13.212.0 - 16.0 g/dLTBHTBH HCT 37.836.0 - 48.0 %TBHTBH MCV83.181.0 - 99.0 fLTBHTBH MCH29.026.7 - 34.0 pgTBH TBH MCHC34.929.9 - 35.2 g/dLTBHTBH RDW12.811.0 - 15.0 %TBHTBH TRP577205 - 450 10 3/uLTBHTBH MPV10.09.5 - 13.5 fLTBHNEUTROPHILS PERCENT AUTO68.843.0 - 75.0 % TBHLYMPHOCYTES PERCENT AUTO22.820.5 - 60.0 %TBHMONOCYTES PERCENT AUTO6.01.7 - 12.0 %TBHTBH EO %1.60.9 - 7.0 %TBHBASOPHILS PERCENT AUTO0.70.2 - 2.0 %TBH IMMATURE GRANULOCYTES PCT AUTO0.10.0 - 0.5 %TBHNEUTROPHILS ABSOLUTE AUTO5.21.4 - 6.5 10 3/uLTBHLYMPHOCYTES ABSOLUTE AUTO1.71.2 - 3.8 10 3/uLTBHMONOCYTES ABSOLUTE AUTO0.50.3 - 0.8 10 3/uLTBHTBH EO #0.10.0 - 0.7 10 3/uLTBHBASOPHILS ABSOLUTE AUTO0.10.0 - 0.1 10 3/uLTBHIMMATURE GRANULOCYTES ABS AUTO0.010.00 - 0.03 10 3/uLTBHSpecimen (Source)Anatomical Location / LateralityCollection Method / VolumeCollection TimeReceived Time05/11/2024 9:47 AM EDT05/11/2024 9:53 AM EDT Narrative CLINISYNC - 05/11/2024 9:58 AM EDT Authorizing ProviderResult TypeResult StatusCorey Ayleen DOCLINISYNCFinal Result Performing OrganizationAddressCity/State/ZIP CodePhone Number [facility] documented in this encounter Visit Diagnoses Not on filedocumented in this encounter
--- OUTSIDE RECORDS SUMMARY | 2025-08-10 16:23 | XMS_ITS | Encounter Summary ---
Author Organization [facility] Address [address] [place] [address] Care Team Providers Care Mortgage Field Inspector Name Role Phone Unavailable Primary Care Provider Unavailabl e Encounter Details DateTypeDepartmentCare Team (Latest Contact Info)Fjmxuioxvhs45/21/2024Clinisync Result Encounter [facility] External Department Unsolicited Carmen Abbasi DO [address] [facility] [address] [facility] [address] [place], [facility]11 Social History Tobacco UseTypesPacks/DayYears UsedDateSmoking Tobacco: UnknownSmokeless Tobacco: CurrentAlcohol UseStandard Drinks/WeekCommentsNever0 (1 standard drink = 0.6 oz pure alcohol)CommentsYesSex and Gender InformationValueDate RecordedSex Assigned at BeiwiBzmxre33/15/2024 11:09 AM EDTLegal SexFemale 12/22/2022 6:41 PM EDTGender CedbketjRlqpwn16/15/2024 11:09 AM EDTSexual ZmieqpyvuvcSqygeqfy66/15/2024 11:09 AM EDTdocumented as of this encounter Plan of Treatment DateTypeDepartmentCare Team (Latest Contact Info)Nlzkztdduuu35/03/2025 8:30 AM ESTOffice Visit [facility] [place] [address] [facility] [place] [address] Alyssa Bazan PA [address] [place] [address] documented as of this encounter Procedures Procedure NamePriorityDate/TimeAssociated DiagnosisCommentsGLUCOSE 1 HOURRoutine 07/30/2024 11:59 AM EDT ALL CBC WITH AUTO EQKMSydwkop81/21/2024 11:59 AM EDT US OB INCOMPLETE QDGNJDF1707/30/2024 9:49 AM EDT documented in this encounter Results * GLUCOSE 1 HOUR (07/30/2024 11:59 AM EDT)ComponentValueRef RangeTest Method Analysis TimePerformed AtPathologist SignatureGLUCOSE 1 UUSM529<130 mg/dLTBH Specimen (Source)Anatomical Location / LateralityCollection Method / Volume Collection TimeReceived Time07/30/2024 11:59 AM EDT1 12:39 PM EDT Narrative CLINISYNC - 07/30/2024 12:39 PM EDT Authorizing ProviderResult TypeResult StatusCorey Ayleen DOLAB BLOOD ORDERABLES Final ResultPerforming OrganizationAddressCity/State/ZIP CodePhone Number [facility]INIS[facility]NC [facility] * (ABNORMAL) ALL CBC WITH AUTO DIFF (07/30/2024 11:59 AM EDT)ComponentValueRef RangeTest MethodAnalysis TimePerformed AtPathologist SignatureTBH WBC11.3(H) 4.0 - 11.0 10 3/uLTBHTBH RBC3.95(L)4.20 - 5.40 10 6/uLTBHTBH HGB11.8(L)12.0 - 16.0 g/dLTBHTBH HCT34.4(L)36.0 - 48.0 %TBHTBH MCV87.181.0 - 99.0 fLTBHTBH MCH 29.926.7 - 34.0 pgTBHTBH MCHC34.329.9 - 35.2 g/dLTBHTBH RDW13.211.0 - 15.0 % TBHTBH [id number] - 450 10 3/uLTBHTBH MPV10.29.5 - 13.5 fLTBHNEUTROPHILS PERCENT AUTO72.643.0 - 75.0 %TBHLYMPHOCYTES PERCENT AUTO17.6(L)20.5 - 60.0 % TBHMONOCYTES PERCENT AUTO6.41.7 - 12.0 %TBHTBH EO %1.20.9 - 7.0 %TBHBASOPHILS PERCENT AUTO0.40.2 - 2.0 %TBHIMMATURE GRANULOCYTES PCT AUTO1.8(H)0.0 - 0.5 % TBHNEUTROPHILS ABSOLUTE AUTO8.2(H)1.4 - 6.5 10 3/uLTBHLYMPHOCYTES ABSOLUTE AUTO2.01.2 - 3.8 10 3/uLTBHMONOCYTES ABSOLUTE AUTO0.70.3 - 0.8 10 3/uLTBHTBH EO #0.10.0 - 0.7 10 3/uLTBHBASOPHILS ABSOLUTE AUTO0.10.0 - 0.1 10 3/uLTBH IMMATURE GRANULOCYTES ABS AUTO0.20(H)0.00 - 0.03 10 3/uLTBHSpecimen (Source) Anatomical Location / LateralityCollection Method / VolumeCollection Time Received Time07/30/2024 11:59 AM EDT1 12:34 PM EDT Narrative CLINISYNC - 07/30/2024 12:34 PM EDT Authorizing ProviderResult TypeResult StatusCorey Ayleen DOCLINISYNCFinal Result Performing OrganizationAddressCity/State/ZIP CodePhone Number [facility] * OB INCOMPLETE ANATOMY (07/30/2024 9:49 AM EDT)Anatomical RegionLaterality ModalityOtherSpecimen (Source)Anatomical Location / LateralityCollection Method / VolumeCollection TimeReceived Time07/30/2024 9:49 AM EDT Narrative 07/30/2024 9:52 AM EDT [facility] ?[address] ? [place] [address] ? Ultrasound Report ? Signed ? Patient: ASH MARTINEZ ?MR#: [id number] ?? : 2000 ?Acct:[id number] ?? Age/Sex: 23 / F ?ADM Date: 07/30/24 ?? Loc: [facility] ? Attending Dr: Carmen Abbasi D.O. ? Ordering Physician: Carmen Abbasi D.O. ?? Date of Service: 07/30/24 ?? Procedure(s): US OB incomplete anatomy ?? Accession Number(s): [id number] ? cc: Carmen Abbasi D.O.; ELISA MARES ? [facility] ? [address] [facility] ? [place] [address] ? Patient Name: ?? ASH MARTINEZ ? MRN: [facility]:[id number] ? date: 2000 ?Sex: F ?? Assigned Patient Location: [facility] ?? Current Patient Location: [facility] ?? Accession/Order Number: [id number] ?? Exam Date: 07/30/2024 ??08:35 ?Report Date: 07/30/2024 ??09:49 ? At the request of: ?? CARMEN ??AYLEEN ? Procedure: ??US OB incomplete anatomy ? EXAM: US OB incomplete anatomy ? HISTORY: INCOMPLETE ANATOMY ? COMPARISON: 07/02/2024 ? TECHNIQUE: Transabdominal images ? FINDINGS: ? Limited by patient body habitus ? position: Cephalic presentation, longitudinal lie ? Heart rate: 151 beats minute ? Normal observed anatomy: four-chamber heart, RVOT, LVOT, three-vessel cord ? US/US OB incomplete anatomy ?? IMPRESSION: ? Normal observed anatomy ? Electronically authenticated by: MARQUES ??ASHLEY ?? Date: 07/30/2024 ??09:49 ? Dictated By: ?Marques Ramirez M.D. ? Signed By: ?07/30/24 0952 ? DD/ ? TD/TT: ? Community Support Professional: Procedure Note Radiology, Radiologist, - 07/30/2024 [place] [address] Ultrasound Report Signed Patient: ASH MARTINEZ KMR#: [id number] : 2000Acct:[id number] Age/Sex: 23 / FADM Date: 07/30/24 Loc: [facility] Attending Dr: Carmen Abbasi D.O. Ordering Physician: Carmen Abbasi D.O. Date of Service: 07/30/24 Procedure(s): US OB incomplete anatomy Accession Number(s): [id number] cc: Carmen Abbasi D.O.; ELISA MARES [address] [place] [address] Patient Name: ASH MARTINEZ MRN: [id number] date: 2000 Sex: F Assigned Patient Location: [facility] Current Patient Location: [facility] Accession/Order Number: [id number] Exam Date: 07/30/2024 08:35 Report Date: 07/30/2024 09:49 At the request of: CARMEN ABBASI Procedure: US OB incomplete anatomy EXAM: [...] 09:49 Dictated By: Marques Ramirez M.D. Signed By:07/30/2452 DD/ TD/TT: Community Support Professional: Authorizing ProviderResult TypeResult StatusCoremark Abbasi DOCLINISYNC IMAGINGFinal Result documented in this encounter Visit Diagnoses Not on filedocumented in this encounter
--- OUTSIDE RECORDS SUMMARY | 2025-08-10 16:23 | XMS_ITS | Encounter Summary ---
Author Organization [facility] Address [address] [place] [address] Care Team Providers Care Solution Manager Name Role Phone Unavailable Primary Care Provider Unavailabl e Encounter Details DateTypeDepartmentCare Team (Latest Contact Info)Qgmtibiwhhg82/03/2024Clinisync Result Encounter [facility]S External Department Unsolicited Alyssa Pretty PA [address] [facility] [address] [facility] [address] [place], [facility]11 Social History Tobacco UseTypesPacks/DayYears UsedDateSmoking Tobacco: UnknownSmokeless Tobacco: CurrentAlcohol UseStandard Drinks/WeekCommentsNever0 (1 standard drink = 0.6 oz pure alcohol)CommentsYesSex and Gender InformationValueDate RecordedSex Assigned at WkyjzMyatnr79/15/2024 11:09 AM EDTLegal SexFemale 12/22/2022 6:41 PM EDTGender HhaysetxYuzprc81/15/2024 11:09 AM EDTSexual QwbtjjzjtypWcogzqzk18/15/2024 11:09 AM EDTdocumented as of this encounter Plan of Treatment DateTypeDepartmentCare Team (Latest Contact Info)Uzyagxyxiwf98/03/2025 8:30 AM ESTOffice Visit [facility] [place] [address] [place] [address] Alyssa Pretty PA [address] [facility] [place] [address] documented as of this encounter Procedures Procedure NamePriorityDate/TimeAssociated DiagnosisCommentsUS OB GROWTH 09/11/2024 12:32 PM EST documented in this encounter Results * US OB GROWTH (09/11/2024 12:32 PM EST)Anatomical RegionLateralityModalityOther Specimen (Source)Anatomical Location / LateralityCollection Method / Volume Collection TimeReceived Time09/11/2024 12:32 PM EST Narrative 09/11/2024 12:35 PM EST The [facility] ?[address] ? [place] [address] ? Ultrasound Report ? Signed ? Patient: ASH MARTINEZ ?MR#: [id number] ?? : 2000 ?Acct:[id number] ?? Age/Sex: 23 / F ?ADM Date: 09/11/24 ?? Loc: [facility] ? Attending Dr: lAyssa Pretty ? Ordering Physician: Alyssa Pretty ?? Date of Service: 09/11/24 ?? Procedure(s): US OB growth ?? Accession Number(s): [id number] ? cc: Alyssa Pretty; ELISA MARES ? [facility] ? [address] ? [place] [address] ? Patient Name: ?? ASH MARTINEZ ? MRN: [id number] ? date: 2000 ?Sex: F ?? Assigned Patient Location: [facility] ?? Current Patient Location: [facility] ?? Accession/Order Number: [id number] ?? Exam Date: 09/11/2024 ??09:57 ?Report Date: 09/11/2024 ??12:32 ? At the request of: ?? ALYSSA ??MARIA DE JESUS ? Procedure: ??US OB growth ? EXAMINATION: US OB growth ? HISTORY: INCONSISTENT SIZE ? COMPARISON: No relevant comparison available. ? FINDINGS: ? Heart Rate: 151 bpm ?? Amniotic Fluid Volume: 11.9 cm, 3.7 cm ?? Number: 1 ?? Position: Cephalic presentation, longitudinal lie ? BIOMETRY: ?? BPD: 7.79 cm; 31w2d; 60.30 % ?? HC: 28.70 cm; 31w4d; 40.90 % ?? AC: 27.43 cm; 31w4d; 73.40 % ?? FL: 5.87 cm; 30w5d; 37.40 % ?? EFW: 1739.10 g; 60.50 % ?? FL/AC: 21.40 ?? FL/BPD: 75.35 ?? HC/AC: 1.05 ? GESTATIONAL AGE: ?? Age by EDC: 30w4d ?? MYESHA by EDC: 2024-11-16 ?? Age by US: 31w2d ?? MYESHA by US: 2024-11-11 ? US/US OB growth ?? IMPRESSION: ? Normal interval growth ? Electronically authenticated by: MARQUES ??ASHLEY ?? Date: 09/11/2024 ??12:32 ? Dictated By: ?Marques Ramirez M.D. ? Signed By: ?09/11/24 1235 ? DD/ 1232 ? TD/TT: ? Underground Miner: Procedure Note Radiology, Radiologist, MD - 09/11/2024 [place] [address] Ultrasound Report Signed Patient: ASH MARTINEZ KMR#: [id number] : 2000Acct:[id number] Age/Sex: 23 / FADM Date: 09/11/24 Loc: [facility] Attending Dr: Alyssa Pretty Ordering Physician: Alyssa Pretty Date of Service: 09/11/24 Procedure(s): US OB growth Accession Number(s): [id number] cc: Alyssa Pretty; ELISA MARES [place] [id number] Patient Name: ASH MARTINEZ MRN: [id number] date: 2000 Sex: F Assigned Patient Location: [facility] Current Patient Location: [facility] Accession/Order Number: [id number] Exam Date: 09/11/2024 09:57 Report Date: 09/11/2024 [...] M.D. Signed By:09/11/24 1235 DD/ 1232 TD/TT: Underground Miner: Authorizing ProviderResult TypeResult StatusAmy Dallas PACLD.W. MCMILLAN MEMORIAL HOSPITALYNC IMAGINGFinal Result documented in this encounter Visit Diagnoses Not on filedocumented in this encounter
--- OUTSIDE RECORDS SUMMARY | 2025-08-10 16:23 | XMS_ITS | Encounter Summary ---
Author Organization [facility] Address [address] [place] [address] Care Team Providers Care Machine Tool Operator Name Role Phone Unavailable Primary Care Provider Unavailabl e Encounter Details DateTypeDepartmentCare Team (Latest Contact Info)Uxwxmakulwf73/10/2024Clinisync Result Encounter [facility] External Department Unsolicited Carmen Abbasi DO [address] [place] [address] Social History Tobacco UseTypesPacks/DayYears UsedDateSmoking Tobacco: UnknownSmokeless Tobacco: CurrentAlcohol UseStandard Drinks/WeekCommentsNever0 (1 standard drink = 0.6 oz pure alcohol)CommentsUnknownSex and Gender InformationValueDate RecordedSex Assigned at SxcwyTlbdwu21/15/2024 11:09 AM EDTLegal SexFemale 12/22/2022 6:41 PM EDTGender AwrfsdtyEnjybh08/15/2024 11:09 AM EDTSexual XpkfvlbxjsfEtbjcwwh49/15/2024 11:09 AM EDTdocumented as of this encounter Plan of Treatment DateTypeDepartmentCare Team (Latest Contact Info)Oxkadahkcyp66/03/2025 8:30 AM ESTOffice Visit [facility] MORGAN [address] [address] Alyssa Bazan PA [address] [place] [address] [place] [address] documented as of this encounter Procedures Procedure NamePriorityDate/TimeAssociated DiagnosisCommentsUS OB TRANSVAGINAL 04/18/2024 10:56 AM EDT documented in this encounter Results * US OB TRANSVAGINAL (04/18/2024 10:56 AM EDT)Anatomical RegionLaterality ModalityOtherSpecimen (Source)Anatomical Location / LateralityCollection Method / VolumeCollection TimeReceived Time04/18/2024 10:56 AM EDT Narrative 04/18/2024 10:59 AM EDT [facility] ?[address] ? [place] [address] ? Ultrasound Report ? Signed ? Patient: LETICIACecilASH Reyes ?MR#: [id number] ?? : 2000 ?Acct:[id number] ?? Age/Sex: 23 / F ?ADM Date: 04/18/24 ?? Loc: [facility] ? Attending Dr: Carmen Abbasi D.O. ? Ordering Physician: Carmen Abbasi D.O. ?? Date of Service: 04/18/24 ?? Procedure(s): US OB transvaginal ?? Accession Number(s): [id number] ? cc: Carmen Abbasi D.O.; ELISA MARES ? [facility] ? [address] ? [place] [address] ? Patient Name: ?? ASH MARTINEZ ? MRN: [facility]:[id number] ? date: 2000 ?Sex: F ?? Assigned Patient Location: [facility] ?? Current Patient Location: [facility] ?? Accession/Order Number: [id number] ?? Exam Date: 04/18/2024 ??10:00 ?Report Date: 04/18/2024 ??10:56 ? At the request of: ?? CARMEN ??AYLEEN ? Procedure: ??US OB transvaginal ? EXAMINATION: US OB transvaginal ? HISTORY: VIABILITY ? COMPARISON: No relevant comparison available. ? FINDINGS: ? Transvaginal images ? Garg intrauterine gestation ?? Gestational sac: Normal morphology, 3.36 cm, 8 weeks 3 days ?? CRL: 2.4 cm, 9 weeks 4 days ?? Yolk sac: 4.7 mm ?? Heart rate: 175 bpm ? Uterus is normal, anteverted, anteflexed ? The right ovary is normal measuring 2.6 x 1.8 x 3.1 cm. ? The left ovary measures 5.3 x 4.5 x 4.0 cm, corpus luteal cyst. ? Cervix is closed measuring 4.7 cm ? Clinical age: Unknown ? Ultrasound age: 9 weeks 4 days ?? Ultrasound MYESHA: 11/17/2024 ? US/US OB transvaginal ?? IMPRESSION: ? Viable garg intrauterine gestation measuring 9 weeks 4 days ? Electronically authenticated by: MARQUES ??ASHLEY ?? Date: 04/18/2024 ??10:56 ? Dictated By: ?Maruqes Ramirez M.D. ? Signed By: ?/08/02 1059 ? DD/ 1056 ? TD/TT: ? Gas Meter Reader: Procedure Note Radiology, Radiologist, - 04/18/2024 [place] [address] Ultrasound Report Signed Patient: ASH MARTINEZ KMR#: [id number] : 2000Acct:[id number] Age/Sex: Date: 04/18/24 Loc: [facility] Attending Dr: Carmen Abbasi D.O. Ordering Physician: Carmen Abbasi D.O. Date of Service: 04/18/24 Procedure(s): US OB transvaginal Accession Number(s): [id number] cc: Carmen Abbasi D.O.; ELISA MARES [place] [id number] Patient Name: ASH MARTINEZ MRN: [id number] date: 2000 Sex: F Assigned Patient Location: [facility] Current Patient Location: [facility] Accession/Order Number: [id number] Exam Date: 04/18/2024 10:00 Report Date: 04/18/2024 [...] M.D. Signed By:04/18/24 1059 DD/ 1056 TD/TT: Gas Meter Reader: Authorizing ProviderResult TypeResult StatusCorey Ayleen DOCLINISYNC IMAGINGFinal Result documented in this encounter Visit Diagnoses Not on filedocumented in this encounter
--- OUTSIDE RECORDS SUMMARY | 2025-08-10 16:24 | XMS_ITS | Clinical Summary ---
Author Organization [facility] Healthcare Address [address] [place] [address] Care Team Providers Care Carpet Jack Name Role Phone Unavailable Primary Care Provider Unavailabl e Allergies Active AllergyReactionsCriticalityNoted JzzdWiqflcdoXosstzueowwOkibZxa37/04/2023 Medications MedicationSigDispense QuantityRefillsLast FilledStart DateEnd DateStatus citalopram (CeleXA) 20 MG tablet Indications:Anxiety with depressionTake 1 tablet (20 mg) by mouth Daily 30 tablet 1115Active Additional Information Patient not taking.Reported on 06/27/2025 ibuprofen 800 MG tablet Take 800 mg by mouth every 8 (eight) hours5ActiveHospital, Clinic, or Other Facility Administered MedicationOrdered DoseRouteFrequencyStart DateEnd DateStatus etonogestrel-eluting 68 mg contraceptive implant 1 each Indications:Insertion of Nexplanon1 zhajZAXnqslatmzx03/10/892963/8Active Active Problems ProblemNoted DateDiagnosed Date6 weeks follow-up ([facility])12/12/2024 Postoperative follow-up12/12/2024nxiety with xnfplspzue13/17/2024 Resolved Problems ProblemNoted DateDiagnosed DateResolved Date36 weeks gestation of ([facility])2 weeks gestation of ([facility])09/25/2024 11/09/2024Third trimester ([facility]) Encounters DateTypeDepartmentCare AkujNqgtqddivzk78/30/2025Telephone [facility] [address] [place] [address] Echo Joseph MA 07/23/2025Telephone [facility] [address] [place] [address] Harry Abbasi DO 07/11/2025Orders Only [facility] [address] [place] [address] Kate Oconnell MA 06/27/2025 10:40 AM EDTProcedure Visit [facility] RIGGSGYN [address] [place] [address] Harry Abbasi DO Pre-op examination; Request for sterilization; Well woman exam with routine gynecological exam; Exposure to STD; Vaginal discharge; Upper back pain06/27/2025linisync Result Encounter [facility] External Department Unsolicited Harry Abbasi DO 06/27/2025External Result Encounter [facility] External Department Unsolicited Harry Abbasi DO 05/27/2025 10:10 AM EDTOffice Visit [facility] [address] [place] [address] Harry Abbasi DO Sterilization mmrshvn3005/27/2025amboo flowsheet [facility] [address] [place] [address] Harry Abbasi DO from Last 3 Months Family History Medical HistoryRelationNameCommentsAcute myelogenous leukemiaOtherRelationName StatusCommentsOther Social History Tobacco UseTypesPacks/DayYears UsedDateSmoking Tobacco: UnknownSmokeless Tobacco: Current Tobacco Cessation:Ready to Q uit: Not Asked; Counseling Given: Not Answered Alcohol UseStandard Drinks/WeekCommentsNever0 (1 standard drink = 0.6 oz pure alcohol)CommentsUnknownSex and Gender InformationValueDate RecordedSex Assigned at ZgmwrYjqsog36/15/2024 11:09 AM EDTLegal FuuKnjgkz46/15/2023 6:41 PM EDTGender SfiamedrTlsuga68/15/2024 11:09 AM EDTSexual OrientationStraight 01/23/2024 11:09 AM EDT Last Filed Vital Signs Vital SignReadingTime TakenCommentsBlood Uocwswxm072/70006/27/2025 10:47 AM EDT Pulse--Temperature--Respiratory Rate--Oxygen Saturation--Inhaled Oxygen Concentration--Xonyap927 kg (274 lb)06/27/2025 10:47 AM KWJOxtqgp680.2 cm (5' 7 )08/01/2023 10:36 AM EDTBody Mass Index42.9108/01/2023 10:36 AM EDT Plan of Treatment DateTypeDepartmentCare Team (Latest Contact Info)Dtfetnwusob07/03/2025 8:30 AM ESTOffice Visit [facility] [address] [place] [address] Alyssa Bazan PA [address] [place] [address] Health MaintenanceDue DateLast DoneCommentsMMR Vaccines (1 of 1 - Standard series)12/19/2003DTaP/Tdap/Td Vaccines (1 - Tdap)2009Varicella Vaccines (1 of 2 - 13+ 2-dose series)12/19/2015HPV Vaccines (1 - 3-dose series)2017 Meningococcal B Vaccine (1 of 2 - Standard)2018Hepatitis B Vaccines (1 of 3 - 19+ 3-dose series)2COVID-19 Vaccine (3 - 2024- season)2025 01/14/2022, 02/27/2021Influenza Vaccine (#1)2025HIB VaccinesAged OutNo longer eligible based on patient's age to complete this topicHepatitis A VaccinesAged OutNo longer eligible based on patient's age to complete this topic IPV VaccinesAged OutNo longer eligible based on patient's age to complete this topicMeningococcal VaccineAged OutNo longer eligible based on patient's age to complete this topicPneumococcal Vaccine: Pediatrics (0 to 5 Years) and At-Risk Patients (6 to 64 Years)Aged OutNo longer eligible based on patient's age to complete this topicRotavirus VaccinesAged OutNo longer eligible based on patient's age to complete this topic Procedures Procedure NamePriorityDate/TimeAssociated DiagnosisCommentsRECURRENT VAGINITIS (HTRX)Uqaulrm7606/27/2025 11:46 AM EDT IGP,APTIMA HPV,AGE BWUBKsghcvs25/18/2025 10:39 AM EDT PAP DRPXLVwakhjy77/18/2025 12:00 AM EDTfrom Last 3 Months Results * RECURRENT VAGINITIS (HTRX) (06/27/2025 11:46 AM EDT)ComponentValueRef Range Test MethodAnalysis TimePerformed AtPathologist SignatureATOPOBIUM VAGINAE0 19.961 - 24.689 ppm06/28/2025 5:53 AM EDTHealthTrackRx at Western State HospitalATOPOBIUM VAGINAENot Wnpsttwc42.961 - 24.689 ppm06/28/2025 5:53 AM EDTHealthTrackRx at LabCommunity [facility] CenterBVAB 2,3 (BACTERIAL VAGINOSIS ASSOCIATED BACTERIA 2, 3); MOBILUNCUS SPP 019.961 - 24.689 ppm06/28/2025 5:53 AM EDTHealthTrackRx at LabPortBVAB 2,3 (BACTERIAL VAGINOSIS ASSOCIATED BACTERIA 2, 3); MOBILUNCUS SPPNot Detected 19.961 - 24.689 ppm06/28/2025 5:53 AM EDTHealthTrackRx at LabPortCANDIDA ALBICANS, PARAPSILOSIS, VWGPOZXYTB703.000 - 30.347 ppm06/28/2025 5:53 AM EDT [facility] LabPortCANDIDA ALBICANS, PARAPSILOSIS, TROPICALISNot Detected 23.000 - 30.347 ppm09/ 5:53 AM EDTHealthTrackRx at LabPortCANDIDA DAZYMBHC980.000 - 31.618 ppm06/28/2025 5:53 AM EDTHealthTrackRx at LabPort EARL GLABRATANot Pqtkwhth20.000 - 31.618 ppm06/28/2025 5:53 AM EDT [facility] LabPortCANDIDA EGYFIQ419.000 - 30.873 ppm06/28/2025 5:53 AM EDTHealthTrackRx at LabPortCANDIDA KRUSEINot Ndbgvgbg07.000 - 30.873 ppm 06/28/2025 5:53 AM EDTHealthTrackRx at LabPortCHLAMYDIA EPIBJGMPFIK881.000 - 31.586 ppm06/28/2025 5:53 AM EDTHealthTrackRx at LabPortCHLAMYDIA TRACHOMATIS Not Hanaywxm65.000 - 31.586 ppm06/28/2025 5:53 AM EDTHealthTrackRx at LabPort GARDNERELLA PAJRBNDKT148.961 - 24.689 ppm06/28/2025 5:53 AM EDTHealthTrackRx at LabPortGARDNERELLA VAGINALISNot Rgxcmkbz78.961 - 24.689 ppm06/28/2025 5:53 AM EDTHealthTrackRx at LabPortMEGASPHAERA (TYPES 1, 2)019.961 - 24.689 ppm 06/28/2025 5:53 AM EDTHealthTrackRx at LabPortMEGASPHAERA (TYPES 1, 2)Not Vfqlvntd69.961 - 24.689 ppm06/28/2025 5:53 AM EDTHealthTrackRx at LabPort NEISSERIA KHBWVCZYOTU357.000 - 32.587 ppm06/28/2025 5:53 AM EDTHealthTrackRx at LabPortNEISSERIA GONORRHOEAENot Ujbcvnwx47.000 - 32.587 ppm06/28/2025 5:53 AM EDTHealthTrackRx at LabPortTRICHOMONAS KXYNHNEGY884.000 - 31.995 ppm 06/28/2025 5:53 AM EDTHealthTrackRx at LabPortTRICHOMONAS VAGINALISNot Dgwptmkm91.000 - 31.995 ppm09 5:53 AM EDTHealth[facility] at [facility] MYCOPLASMA VZUHXHMEMN502.961 - 24.689 ppm06/28/2025 5:53 AM EDTHealthTrackRx at Western State HospitalMYCOPLASMA GENITALIUMNot Khoahxbl13.961 - 24.689 ppm06/28/2025 5:53 AM EDTHealthTrackRx at Western State HospitalSpecimen (Source)Anatomical Location / LateralityCollection Method / VolumeCollection TimeReceived TimeTissue 06/27/2025 11:46 AM EDT06/28/2025 1:30 AM EDT Narrative Authorizing ProviderResult TypeResult StatusCorey Ayleen DOLAB BLOOD ORDERABLES Final ResultPerforming OrganizationAddressCity/State/ZIP CodePhone Number [facility] [address] [address] * IGP,APTIMA HPV,AGE GDLN (06/27/2025 10:39 AM EDT)ComponentValueRef RangeTest MethodAnalysis TimePerformed AtPathologist SignatureAGE GDLN ACOG TESTINGNote. TBHComment: ?? TESTS ? RESULT ??FLAG ??UNITS ?REF RANGE ??LAB ?? Clinician Provided Cytology Information ?? Source.............Cervix;Endocervix ?? No. of containers..01 ThinPrep Vial Age Algo ACOG Keke... ??21-29 ? 01 ?FLAG LEGEND: ?L-Low Normal,H-High Normal,LL-Alert Low,HH-Alert High <-Panic Low,>-Panic High,A-Abnormal,AA-Critical Abnormal Performed at: 01 =G ?[facility] [place] ?? [address] [place] ??[phone] ?? Darlene Gonzalez MD, IGP, RFX APTIMA HPV ASCUNote.TBHComment: ?? TESTS ? RESULT ??FLAG ??UNITS ?REF RANGE ??LAB DIAGNOSIS: ?02 ?? NEGATIVE FOR INTRAEPITHELIAL LESION OR MALIGNANCY. Specimen adequacy: ?02 ?? Satisfactory for evaluation. ??Endocervical and/or squamous metaplastic ?? cells (endocervical component) are present. Performed by: ? 02 ?? Tarsha Palencia, Mortgage Originator ([facility]) . ? 02 Note: ? Note ?02 ?? The Pap smear is a screening test designed to aid in the ?? detection of premalignant and malignant conditions of the ?? uterine cervix. ??It is not a diagnostic procedure and ?? should not be used as the sole means of detecting cervical ?? cancer. ??Both false-positive and false-negative reports do ?? occur. Test Methodology: ? Note ?02 ?? This liquid based ThinPrep(R) pap test was screened with ?? the use of an image guided system. . ? 02 ?? The HPV DNA reflex criteria were not met with this specimen ?? result therefore, no HPV testing was performed. ?FLAG LEGEND: ?L-Low Normal,H-High Normal,LL-Alert Low,HH-Alert High <-Panic Low,>-Panic High,A-Abnormal,AA-Critical Abnormal Performed at: 02 WB ?[facility] [place] ?? [address] [place] ??[phone] ?? Darlene Gonzalez MD, Performed at: ??=G - [facility] [place] [address] [facility], [place] ??[id number] Bingo Worker: Darlene Gonzalez MD, Phone: ??[phone] Performed at: ??WB - [facility] [place] [address] [facility] [place], [place] ??[id number] Bingo Worker: Darlene Gonzalez MD, Phone: ??[phone] Specimen (Source)Anatomical Location / LateralityCollection Method / Volume Collection TimeReceived Time06/27/2025 10:39 AM EDT06/27/2025 8:52 PM EDT Narrative [facility] - 07/04/2025 1:08 PM EDT BRUSH-SPATULA CERVIX ENDOCERVIX Authorizing ProviderResult TypeResult StatusCorey Ayleen DOLAB BLOOD ORDERABLES Final ResultPerforming OrganizationAddressCity/State/ZIP CodePhone Number [facility] * Pap Smear (06/27/2025 12:00 AM EDT)Specimen (Source)Anatomical Location / LateralityCollection Method / VolumeCollection TimeReceived TimeSwabCervical swab / Unknown Narrative Authorizing ProviderResult TypeResult StatusCorey Ayleen DOLAB CYTOLOGY ORDERABLESFinal ResultPerforming OrganizationAddressCity/State/ZIP CodePhone Number EXTERNAL LAB from Last 3 Months Insurance
--- OUTSIDE RECORDS SUMMARY | 2025-08-10 16:24 | XMS_ITS | Clinical Summary ---
Author Organization [facility] [employer] [facility] tem Address [id number] [place] [address] Care Team Providers Care Retirement Manager Name Role Phone Mireya Baker GALO-INTELLIGENCE DIRECTOR Primary Care Provider + Allergies Active AllergyReactionsCriticalityNoted DateCommentsOndansetron HclRashLow 12/11/2022 Medications MedicationSigDispense QuantityRefillsLast FilledStart DateEnd DateStatus 21-IRON FU-FOLIC ACID ORAL Take by mouth once daily.Active fluticasone propionate (FLONASE) 50 mcg/actuation nasal spray Administer 2 sprays into each nostril in the morning. 16 g 07/04/2024ctive FLUoxetine (PROzac) 10 mg capsule Take 1 capsule (10 mg total) by mouth in the morning.Active Active Problems No known active problems Encounters DateTypeDepartmentCare YdyfTecfpmpsybj98/25/2025Telephone [facility] Internal Medicine - Family Medicine [address] [place] [address] Brittney Rome CMA Juxkxsrpcsv42/19/2025 8:01 AM EDT - 06/28/2025 8:58 AM EDTEmergency [facility] [address] [place] [id number] Sridhar Schuler DO Sprain of left wrist, initial encounter (Primary Dx) Discharge Disposition: Home06/28/2025Travelfrom Last 3 Months Immunizations ImmunizationAdministration DatesNext KjrWJdD3106/22/2004DTaP / Hep B / IPV 12/20/2003,11/11/2003,05/31/2003DTaP, Mxcqzacwpuu03/15/2014Hep B, Adolescent or Aunajjffq72/13/2003Hib (PRP-T)06/22/2004,12/20/2003,11/11/2003,05/31/2003MMR 12/20/2003Pneumococcal Tiyehgslq77/13/2004,11/11/2003,05/31/2003Tdap04/04/2025, 11/13/20199010Rmxdezurw18/12/2004 Family History Medical HistoryRelationNameCommentsNo Known ProblemsBrotherkobeNo Known Problems DaughterPost-traumatic stress disorderFatherAnxiety disorderMotherDepression Sister 1alazaeNo Known ProblemsSister 2koraRelationNameStatusCommentsBrotherkobe AliveDaughterAliveFatherAliveMotherAliveSister 1alazaeAliveSister 2koraAlive Social History Tobacco UseTypesPacks/DayYears UsedDateSmoking Tobacco: NeverSmokeless Tobacco: Never Tobacco Cessation:Counseling Given: Not Answered Alcohol UseStandard Drinks/WeekCommentsNever0 (1 standard drink = 0.6 oz pure alcohol)AUDIT-CAnswerDate RecordedFrequency of Alcohol ConsumptionNever 10/04/2019Average Number of DrinksNot on file10/04/2019Frequency of Binge DrinkingNot on file10/04/2019PHQ-2AnswerDate RecordedTotal Kilrb865 ChildcareAnswerDate EyzhnodeZldntuxxpKmlzeue77/12/2019EmploymentAnswerDate JnazxyevCiefgbsfwbVdmnyqi01/12/2019Hunger ScreeningAnswerDate RecordedWithin the past 12 months we worried whether our food would run out before we got money to buy more.Never True06/28/2025Within the past 12 months the food we bought just didn't last and we didn't have money to get more.Never True06/28/2025Purpose - LifeAnswerDate RecordedPurpose and direction in wgdnBprlted13/02/2021 CommentsNoSex and Gender InformationValueDate RecordedSex Assigned at BirthNot on fileLegal UikAzjpmh42/06/2015 12:02 PM EDTGender IdentityNot on fileSexual OrientationNot on file Last Filed Vital Signs Vital SignReadingTime TakenCommentsBlood Kjdrzblm212/76006/28/2025 8:05 AM EDT Bwyvt428906/28/2025 8:05 AM QZMEmhwrvykpii46.4 ??C (97.5 ??F)06/28/2025 8:05 AM EDTRespiratory Hyqv467206/28/2025 8:05 AM EDTOxygen Aifxgcazga18%06/28/2025 8:05 AM EDTInhaled Oxygen Concentration--Axowsg491.5 kg (270 lb)06/28/2025 8:05 AM CPQIztpau111.2 cm (5' 7 )06/28/2025 8:05 AM EDTBody Mass Index42.29006/28/2025 8:05 AM EDT Plan of Treatment Health MaintenanceDue DateLast DoneCommentsAdult BMI Follow Up Plan09/14/2024 09/14/2023epression Ffmjmtujt51/25/67040007/04/2024dult BMI Bzvtkqbeo47/19/2026 06/28/2025Tobacco Sjksfmfla47/19/164719/Pap Smear809/, 05/29/2024, 3DTaP,Tdap and Td Vaccines (8 - Td or Tdap)04/04/2035 04/04/2025, 11/13/2019, 01/22/2014, Additional history existsCOVID-19 Vaccine Frmiefeqdyil91/07/2022, 1Chlamydia ScreeningDiscontinuedInfluenza VaccineDiscontinued Medical Devices Not on file Procedures Procedure NamePriorityDate/TimeAssociated DiagnosisCommentsXR WRIST LT MIN 3 VWS STAT06/28/2025 8:35 AM EDT from Last 3 Months Results * X-ray wrist left minimum 3 views (06/28/2025 8:35 AM EDT)Anatomical Region LateralityModalityMSK, Upper Extremities, WristLeftComputed Radiography Specimen (Source)Anatomical Location / LateralityCollection Method / Volume Collection TimeReceived Time06/28/2025 8:38 AM EDT Narrative 06/28/2025 8:39 AM EDT XR WRIST LT MIN 3 VWS Clinical history:left wrist pain ??pain Comparison: 02/09/2021 Impression: No acute process, fracture [...] Jose Aj MD on 06/28/2025 8:39 AM Authorizing ProviderResult TypeResult StatusMaxfelipa Schuler DOIMG DIAGNOSTIC IMAGING ORDERABLESFinal Result from Last 3 Months Insurance Care Teams Team MemberRelationshipSpecialtyStart DateEnd Date Mireya Baker, VOIP NETWORK ENGINEER-INTELLIGENCE DIRECTOR [address] [place] [address] PCP - GeneralFamily Medicine06/28/25
--- OUTSIDE RECORDS SUMMARY | 2025-08-10 16:24 | XMS_ITS | Encounter Summary ---
Author Organization [facility] Address [address] [place] [address] Care Team Providers Care Public Health Name Role Phone Unavailable Primary Care Provider Unavailabl e Encounter Details DateTypeDepartmentCare Team (Latest Contact Info)Zbcvwhejxtj18/21/2024Clinisync Result Encounter [facility] External Department Unsolicited Carmen Abbasi DO [address] [facility] [address] [place] o[place]cha, [facility] Social History Tobacco UseTypesPacks/DayYears UsedDateSmoking Tobacco: UnknownSmokeless Tobacco: CurrentAlcohol UseStandard Drinks/WeekCommentsNever0 (1 standard drink = 0.6 oz pure alcohol)CommentsYesSex and Gender InformationValueDate RecordedSex Assigned at WfodaSbzqlf75/15/2024 11:09 AM EDTLegal SexFemale 12/22/2022 6:41 PM EDTGender HrohklnpPwqeai79/15/2024 11:09 AM EDTSexual ZepftvfkmcfEfwuszma59/15/2024 11:09 AM EDTdocumented as of this encounter Plan of Treatment DateTypeDepartmentCare Team (Latest Contact Info)Bvpphvxnvbf33/03/2025 8:30 AM ESTOffice Visit [facility] [address] [place] [address] Alyssa Bazan PA [address] [place] [address] documented as of this encounter Procedures Procedure NamePriorityDate/TimeAssociated DiagnosisCommentsUS OB BPP W NON-SWMUJT1209/29/2024 4:08 PM EST documented in this encounter Results * US OB BPP W NON-STRESS (09/29/2024 4:08 PM EST)Anatomical Region LateralityModalityOtherSpecimen (Source)Anatomical Location / Laterality Collection Method / VolumeCollection TimeReceived Time09/29/2024 4:08 PM EST Narrative 09/29/2024 4:11 PM EST [facility] ?[address] ? [place] [address] ? Ultrasound Report ? Signed ? Patient: ASH MARTINEZ ?MR#: [id number] ?? : 2000 ?Acct:[id number] ?? Age/Sex: 23 / F ?ADM Date: 09/29/24 ?? Loc: FBCO ? Attending Dr: Carmen Abbasi D.O. ? Ordering Physician: Carmen Abbasi D.O. ?? Date of Service: 09/29/24 ?? Procedure(s): US OB BPP w non-stress ?? Accession Number(s): [id number] ? cc: Carmen Abbasi D.O.; ELISA MARES ? [facility] ? [address] ? [place] [address] ? Patient Name: ?? ASH MARTINEZ ? MRN: [facility]:[id number] ? date: 2000 ?Sex: F ?? Assigned Patient Location: FBC ?? Current Patient Location: ? Accession/Order Number: [id number] ?? Exam Date: 09/29/2024 ??14:10 ?Report Date: 09/29/2024 ??16:08 ? At the request of: ?? CARMEN ??AYLEEN ? Procedure: ??US OB BPP w non-stress ? EXAM: US OB BPP w non-stress ? HISTORY: decreased movement ? COMPARISON: OB ultrasound 09/11/2024 and earlier. ? TECHNIQUE: ultrasound biophysical profile. ? FINDINGS: Single fetus cephalic presentation. Heart rate 130 bpm. WARREN 10.1 cm, ? deepest pocket 4.4 cm. ? movement: 2 ?? tone: 2 ?? breathin ?? Amniotic fluid: 2 ? Total score 8/8. ? US/US OB BPP w non-stress ?? IMPRESSION: ? Biophysical profile score 8/8. ? Electronically authenticated by: LOKI ??MADINA ?? Date: 09/29/2024 ??16:08 ? Dictated By: ?Loki Pandey M.D. ? Signed By: ?09/29/24 1611 ? DD/ 1608 ? TD/TT: ? Bottle Filler: Procedure Note Radiology, Radiologist, MD - 09/29/2024 [place] [address] Ultrasound Report Signed Patient: ASH MARTINEZ KMR#: [id number] : 2000Acct:[id number] Age/Sex: Date: 09/29/24 Loc: FBCO Attending Dr: Carmen Abbasi D.O. Ordering Physician: Carmen Abbasi D.O. Date of Service: 09/29/24 Procedure(s): US OB BPP w non-stress Accession Number(s): [id number] cc: Carmen Abbasi D.O.; ELISA MARES [place] [id number] Patient Name: ASH MARTINEZ MRN: [id number] date: 2000 Sex: F Assigned Patient Location: [facility] Current Patient Location: Accession/Order Number: [id number] Exam Date: 09/29/2024 14:10 Report Date: 09/29/2024 [...] Biophysical profile score 8/8. Electronically authenticated by: LOKI PANDEY Date: 6:08 Dictated By: Loki Pandey M.D. Signed By:09/29/24 1611 DD/ 1608 TD/TT: Bottle Filler: Authorizing ProviderResult TypeResult StatusCorey Ayleen DOCLINISYNC IMAGINGFinal Result documented in this encounter Visit Diagnoses Not on filedocumented in this encounter
--- OUTSIDE RECORDS SUMMARY | 2025-08-10 16:24 | XMS_ITS | Encounter Summary ---
Author Organization [facility] Address [address] [place] [address] Care Team Providers Care Gas Dispatcher Name Role Phone Unavailable Primary Care Provider Unavailabl e Encounter Details DateTypeDepartmentCare Team (Latest Contact Info)Mzeqaupcqpb56/30/2025Telephone ADRIAN Rocha OBGYN [address] [place] [address] Echo Joseph MA [address] [facility] [address] [address] Social History Tobacco UseTypesPacks/DayYears UsedDateSmoking Tobacco: UnknownSmokeless Tobacco: CurrentAlcohol UseStandard Drinks/WeekCommentsNever0 (1 standard drink = 0.6 oz pure alcohol)CommentsUnknownSex and Gender InformationValueDate RecordedSex Assigned at TvhycKojizb82/15/2024 11:09 AM EDTLegal SexFemale 12/22/2022 6:41 PM EDTGender HxbakafiXoirwp65/15/2024 11:09 AM EDTSexual XsbbdnuqgqjTriwljsv17/15/2024 11:09 AM EDTdocumented as of this encounter Miscellaneous Notes * Telephone Encounter - Echo Joseph MA - 08/08/2025 1:37 PM EDT Pt called is having a lot of pain on her left side. Pt states she had surgery on 08/02/2025 for a laparoscopic salpingectomy. And while working she felt this awful pain on her left side where her incision is at. Pt took a look and stated the incision has opened up and she is in a lot of pain and IBU is not helping. Wants to know what she can take /do until she comes to the office for her post op visit. I advised the patient to go to the ER especially if her incision is opened to avoid infectionand we do not send pain meds w/o the permission of Dr. Abbasi and he is out of the office. So, she should head to the ER. PVU. documented in this encounter Plan of Treatment DateTypeDepartmentCare Team (Latest Contact Info)Uppmjigclhm21/03/2025 8:30 AM ESTOffice Visit [facility] [address] [place] [id number] Alyssa Bazan PA [address] [place] [address] documented as of this encounter Visit Diagnoses Not on filedocumented in this encounter
--- OUTSIDE RECORDS SUMMARY | 2025-08-10 16:24 | XMS_ITS | Encounter Summary ---
Author Organization [facility] Address [address] [place] [address] Care Team Providers Care Vault Manager Name Role Phone Unavailable Primary Care Provider Unavailabl e Encounter Details DateTypeDepartmentCare Team (Latest Contact Info)Xxvgaddbtor77/13/2024Clinisync Result Encounter [facility] External Department Unsolicited Carmen Abbasi DO [address] [facility] [place] [address] Social History Tobacco UseTypesPacks/DayYears UsedDateSmoking Tobacco: UnknownSmokeless Tobacco: CurrentAlcohol UseStandard Drinks/WeekCommentsNever0 (1 standard drink = 0.6 oz pure alcohol)CommentsUnknownSex and Gender InformationValueDate RecordedSex Assigned at RbwjfKvtylm95/15/2024 11:09 AM EDTLegal SexFemale 12/22/2022 6:41 PM EDTGender YdmnkddqKrvhhj62/15/2024 11:09 AM EDTSexual PohistakdqiCaeunbrx02/15/2024 11:09 AM EDTdocumented as of this encounter Plan of Treatment DateTypeDepartmentCare Team (Latest Contact Info)Nhetwlbqior26/03/2025 8:30 AM ESTOffice Visit [facility] [place] [address] [facility] [place] [address] Alyssa Bazan PA [address] [place] [address] [place] [address] documented as of this encounter Procedures Procedure NamePriorityDate/TimeAssociated DiagnosisCommentsUS OB TRANSVAGINAL 02/20/2024 10:05 AM EDT [facility] PREG QUANT CGOKscxpie63/13/2024 9:36 AM EDT documented in this encounter Results * US OB TRANSVAGINAL (02/20/2024 10:05 AM EDT)Anatomical RegionLaterality ModalityOtherSpecimen (Source)Anatomical Location / LateralityCollection Method / VolumeCollection TimeReceived Time02/20/2024 10:05 AM EDT Narrative 02/20/2024 10:07 AM EDT [facility] ?[address] ? [place] [address] ? Ultrasound Report ? Signed ? Patient: COSMOGURPREETCecilASH Reyes ?MR#: [id number] ?? : 2000 ?Acct:[id number] ?? Age/Sex: 23 / F ?ADM Date: 02/20/24 ?? Loc: LAB ? Attending Dr: Carmen Abbasi D.O. ? Ordering Physician: Carmen Abbasi D.O. ?? Date of Service: 02/20/24 ?? Procedure(s): US OB transvaginal ?? Accession Number(s): [id number] ? cc: Carmen Abbasi D.O.; ELISA MARES ? [facility] ? [address] ? [place] [address] ? Patient Name: ?? ASH MARTINEZ ? MRN: [id number] ? date: 2000 ?Sex: F ?? Assigned Patient Location: LAB ?? Current Patient Location: LAB ?? Accession/Order Number: [id number] ?? Exam Date: 02/20/2024 ??09:15 ?Report Date: 02/20/2024 ??10:05 ? At the request of: ?? CARMEN ??AYLEEN ? Procedure: ??US OB transvaginal ? EXAMINATION: US OB transvaginal ? HISTORY: With Uncertain Viability O36.80XO ? COMPARISON: 02/13/24 ? FINDINGS: ? No intrauterine or ectopic is observed. ? The uterus is normal in size, contour and echotexture. ? Endometrium measures 5.1 mm with a small amount of fluid. ? The right ovary measures 1.9 x 1.4 x 1.2 cm. Normal color flow. ? Left ovary measures 2.1 x 1.8 x 1.3 cm. Normal color flow ? No free fluid ? US/US OB transvaginal ?? IMPRESSION: ? No intrauterine or ectopic identified ? Electronically authenticated by: MARQUES ??ASHLEY ?? Date: 02/20/2024 ??10:05 ? Dictated By: ?Marques Ramirez M.D. ? Signed By: ?02/20/24 1007 ? DD/ 1005 ? TD/TT: ? Beauty Culturist: Procedure Note Radiology, Radiologist, - 02/20/2024 [place] [address] Ultrasound Report Signed Patient: ASH MARTINEZ KMR#: [id number] : 2000Acct:[id number] Age/Sex: 23 / FADM Date: 02/20/24 Loc: LAB Attending Dr: Carmen Abbasi D.O. Ordering Physician: Carmen Abbasi D.O. Date of Service: 02/20/24 Procedure(s): US OB transvaginal Accession Number(s): [id number] cc: Carmen Abbasi D.O.; ELISA MARES [address] [address] Patient Name: ASH MARTINEZ MRN: [id number] date: 2000 Sex: F Assigned Patient Location: LAB Current Patient Location: LAB Accession/Order Number: [id number] Exam Date: 02/20/2024 09:15 Report Date: 02/20/2024 [...] M.D. Signed By:02/20/24 1007 DD/ 1005 TD/TT: Beauty Culturist: Authorizing ProviderResult TypeResult StatusCorey Ayleen DOCLINISYNC IMAGINGFinal Result * [facility] PREG QUANT HCG (02/20/2024 9:36 AM EDT)ComponentValueRef RangeTest Method Analysis TimePerformed AtPathologist SignatureHCG CNOZIAOFEZSA69bKI/mLTBH Comment: 5-50 ? 0.2-1 WEEK 50-500 ? 1-2 WEEKS 100-5,000 ?2-3 WEEKS 500-10,000 ? 3-4 WEEKS 1,000-50,000 ?? 4-5 WEEKS 10,000-100,000 5-6 WEEKS 15,000-200,000 6-8 WEEKS 10,000-100,000 2-3 MONTHS Specimen (Source)Anatomical Location / LateralityCollection Method / Volume Collection TimeReceived Time02/20/2024 9:36 AM EDT02/20/2024 9:46 AM EDT Narrative [facility] - 02/20/2024 12:01 PM EDT Authorizing ProviderResult TypeResult StatusCorey Ayleen DOCLINISYNCFinal Result Performing OrganizationAddressCity/State/ZIP CodePhone Number [facility] documented in this encounter Visit Diagnoses Not on filedocumented in this encounter
--- NOTE | 2025-08-10 16:34 | ED.GENADUL1 ---
HPI HPI - General Adult General Chief complaint: Skin/Abscess/Foreign Body Stated complaint: Wound Check Time Seen by Provider: 08/10/25 16:13 Source: patient Mode of arrival: walk-in History of Present Illness HPI narrative: Patient is a 24-year-old female who is 8 days postop from tubal removal with Dr. Abbasi on 08/02/2025. She presents to the emergency department with complaints of some bleeding from the lower part of her CARLOS ENRIQUE umbilical incision. She states that her Steri-Strips have slowly started to come off since she started showering. The last 1 came off this morning and she had some bleeding. She states that it was about the amount of a Band-Aid square. She had called the on-call number for Dr. Abbasi and they recommended evaluation in the ER. Patient denies any fever, night sweats, or chills. She describes the drainage as serosanguineous. She denies any abdominal pain or vaginal discharge/bleeding. Related Data Previous Rx's ?Medication ?Instructions ?Recorded ibuprofen 800 mg tablet 800 mg PO Q8H PRN pain 14 days #40 11/11/24 tabs hydrocodone 5 mg-acetaminophen 325 1 tab PO Q4H PRN pain 4 days #16 08/02/25 mg tablet tabs ibuprofen 800 mg tablet 800 mg PO Q8H PRN pain 14 days #40 08/02/25 tabs Allergies Allergy/AdvReac Type Severity Reaction Status Date / Time ondansetron (From Zofran) Allergy Mild Rash Verified 08/02/25 06:26 Opioid HPI Opioid Management Most Recent Opioid Data: Last Pain Scale 2 11/11/24, 00:33 Ur Phencyclidine Scrn, (NEGATIVE) Negative 11/09/24, 05:50 Review of Systems ROS Status of ROS 10 or more systems reviewed and unremarkable except as noted in history and below [facility] Medical History (Updated 08/10/25 @ 16:33 by MAEGAN [place]) Knee pain ?M25.569 - Pain in unspecified knee (ICD-10) Back pain ?M54.9 - Dorsalgia, unspecified (ICD-10) 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 - depression (ICD-10) PTSD (post-traumatic stress disorder) ?F43.10 - Post-traumatic stress disorder, unspecified (ICD-10) Anxiety ?F41.9 - Anxiety disorder, unspecified (ICD-10) Asthma ?J45.909 - Unspecified asthma, uncomplicated (ICD-10) Request for sterilization ?Z30.2 - Encounter for sterilization (ICD-10) Heartburn ?R12 - Heartburn (ICD-10) Low iron ?E61.1 - Iron deficiency (ICD-10) Surgical History (Updated 07/23/25 @ 10:22 by Savannah Wilkerson NP) History of section ?Z98.891 - History of uterine scar from previous surgery (ICD-10) History of section ?Z98.891 - History of uterine scar from previous surgery (ICD-10) Family History (Updated 07/23/25 @ 10:22 by Savannah Wilkerson NP) Other Family history of DVT Family history of breast cancer Family history of cervical cancer Family history of hypertension Social History (Updated 07/23/25 @ 10:17 by Savannah Wilkerson NP) Within the past year, how often did you have a drink containing alcohol: monthly or less Smoking status: Never smoker Non-prescribed substance use: denies use 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 No rash. Head: Normocephalic, atraumatic. Neck: Supple, non-tender. Eye: Pupils are equal, round and EOMI. No scleral icterus. Ears, Nose, Mouth, and Throat: No nasal mucosal hypertrophy. Oral mucosa is moist, no posterior oropharynx erythema, uvula is mid-line Cardiovascular: Regular Rate and Rhythm without murmur, gallop or rub. Respiratory: No accessory muscle use or respiratory distress. Musculoskeletal: Full ROM of all extremities, no calf or popliteal tenderness GI: Abdomen is soft, non-distended, non tender to palpation. No masses appreciated. No rebound, guarding, or rigidity noted. There is a healing periumbilical surgical incision, no dehiscence noted on inspection and even with some slight pressure applied to the wound. There is a small scab. No surrounding erythema, no drainage on exam. There were 2 other bilateral surgical incisions on the abdomen that are well-healed, no surrounding erythema. Lower abdominal healing ecchymosis, nontender. Neurological: A&O x4. No cranial nerve dysfunction observed. No truncal ataxia. Moves all extremities. Sensation intact. Psychiatric: Cooperative and interactive. Normal mood and affect. Constitutional Vital Signs, click to edit/add: Last Vital Signs Temp 97.7 F 08/10/25 16:13 Pulse 77 08/10/25 16:13 Resp 18 08/10/25 16:13 BP 128/80 08/10/25 16:13 Pulse Ox 100 08/10/25 16:13 O2 Del Method Room Air 08/10/25 16:13 Course Vital Signs Vital signs: Vital Signs Temperature 97.7 F 08/10/25 16:13 Pulse Rate 77 08/10/25 16:13 Respiratory Rate 18 08/10/25 16:13 Blood Pressure 128/80 08/10/25 16:13 Pulse Oximetry 100 08/10/25 16:13 Oxygen Delivery Method Room Air 08/10/25 16:13 Temperature 97.7 F 08/10/25 16:13 Pulse Rate 77 08/10/25 16:13 Respiratory Rate 18 08/10/25 16:13 Blood Pressure 128/80 08/10/25 16:13 Pulse Oximetry 100 08/10/25 16:13 Oxygen Delivery Method Room Air 08/10/25 16:13 Medical Decision Making MDM Narrative Medical decision making narrative: This is a 24-year-old female who presented to the ED with complaints of bleeding from her periumbilical surgical wound this morning after the last Steri-Strip fell off. She is 8 days postop from tubal removal with Dr. Abbasi on 07/29/2025. She notes the drainage was assessed and the amount of a Band-Aid square. She has no fever, night sweats, chills, abdominal pain, vaginal discharge, vaginal bleeding. On arrival patient is in no distress, hemodynamically stable. Nontoxic-appearing. Temperature is afebrile at 97.7 ?F. No dehiscence of her periumbilical wound or the bilateral abdominal wounds. No drainage on exam. I discussed with patient that the wound appears to be well-healing, there is no drainage on exam today, no apparent signs of infection. She does have a follow-up appointment on Tuesday with Alyssa Bazan, I did encouraged her to keep this appointment. Return to the ED if she experiences any fever, night sweats, chills, new redness surrounding wounds, purulent drainage. Patient was discharged in stable condition, no antibiotics indicated, with plan for close follow-up with the [employer] PA on Tuesday. Differential Diagnosis Differential Diagnosis: Surgical wound dehiscence, surgical wound infection Discharge Plan Discharge Chief Complaint: Skin/Abscess/Foreign Body Clinical Impression: Encounter for post surgical wound check Patient Disposition: Home, Self-Care Time of Disposition Decision: 16:33 Condition: Good Mode of Transportation: Private Vehicle Prescriptions / Home Meds: No Action ibuprofen 800 mg tablet 800 mg PO Q8H PRN (Reason: pain) 14 Days Qty: 40 0RF ibuprofen 800 mg tablet 800 mg PO Q8H PRN (Reason: pain) 14 Days Qty: 40 0RF hydrocodone-acetaminophen 5-325 mg tablet 1 tab PO Q4H PRN (Reason: pain) 4 Days Qty: 16 0RF Print Language: Citizen [place] Referrals: Harry Abbasi DO [Physician, [employer]] - 08/12/25 Referral Note: Keep follow up appointment on Tuesday with Alyssa Bazan. ELISA MARES [Primary Care Provider, Family Practice] - 1 week Discharge Date/Time: 08/10/25 16:41
== END 2025-08-10 16:41 | disposition home or self-care (01) ==
PROVIDERS: Emergency Provider Emergency Medicine; PCP Nurse Practitioner Family
DX: Z48.816 Encounter for surgical aftercare following surgery on the genitourinary system (principal)
CPT/HCPCS: 99281